=== PATIENT | female | born 1970 | race Caucasian/White ===

== ENCOUNTER 2016-12-31 07:39 | Emergency (ER) | payer OTHER ==
[~2016-12-31] VITALS: Ht 177.8 cm; Wt 113.7 kg
[~2016-12-31 07:39] MED LIST: ASPI81TA28 PO; BUPR-79 PO; DSY/150 PO; IMD/2 PO; LEVO125T4 PO; METH10TA PO; NTRGSL/4 UT; RIZA10TA19 PO
[2016-12-31 07:42] VITALS: TEMP 36.8; Ht 177.8 cm; Wt 113.7 kg
[2016-12-31] MEDS ORDERED: LEVO300T2 PO (07:59)
[2016-12-31] MEDS ORDERED: PROMETHAZINE HCL INJ 25 MG/ML 1 ML VIAL IM STA (08:27)
[2016-12-31] MEDS ORDERED: KETOROLAC TROMETHAMINE 60 MG/2 ML VIAL IM STA (08:27)
[2016-12-31] MEDS ORDERED: HYDROmorphone INJ 1 MG/ML SYR IM STA (08:27)
[2016-12-31] MEDS ORDERED: DEXAMETHASONE SOD INJ 10 MG/ML VIAL IM ONE (08:30)
[2016-12-31 08:45] VITALS: O2SAT 95
[2016-12-31] MEDS ORDERED: HYDROmorphone INJ 0.5 MG/0.5 ML SYR IV STA (09:28)
[2016-12-31] MEDS ORDERED: HYDROmorphone INJ 0.5 MG/0.5 ML SYR IM STA (09:32)
[2016-12-31 09:43] LABS: URINE APPEARANCE CLEAR (CLEAR); URINE BILIRUBIN NEG (NEG); URINE COLOR YELLOW; URINE EPITHELIAL CELL AUTO >30 /lpf (0-5); URINE NITRITE NEG (NEG); URINE PH 6.5 (4.5-7.5); UROBILINOGEN NEG (NEG)
[2016-12-31 09:46] LABS: MANUAL MICROSCOPIC REQUIRED? NO; REVIEW REQ? NO
[2016-12-31] MEDS ORDERED: ONDA4TAB10 SL (11:02)
--- NOTE | 2016-12-31 11:02 | EMERGENCY ROOM VISIT NOTE ---
History First contact with patient: 07:55 Chief Complaint: BACK PAIN Stated Complaint: BACK AND LEG PAIN History of Present Illness Patient is a 46-year-old white female who presents to the emergency department accompanied by her for evaluation of worsening low back pain radiating into her bilateral legs 2-3 days. She has a history of fibromyalgia and chronic low back pain. She is on methadone for her chronic pain syndrome. She complains of pain in the midline low back that radiates into her buttocks and hips bilaterally, then down the lateral aspect of her legs. She states that it hurts to sit and stand. She states that this is similar to her usual pain, but has been worse over the last 2-3 days. It has been on this alleviated by taking her usual doses of methadone, and in addition to trying ibuprofen, ice and warm showers. She has chronic numbness in her thighs bilaterally which has not changed. She denies any bowel or bladder incontinence or saddle anesthesias. No dysuria, frequency, urgency or flank pain. She has chronic constipation and states that her bowel movements have been normal for her. She denies any direct trauma or falls, no unusual activity that she can recall, but she does care for her [id number] grandson with special needs/autism and could have injured herself picking him up or restraining him during a tantrum. Her back has been thoroughly evaluated in the past. She has had MRIs, been evaluated by neurosurgery, undergone injections and physical therapy. She denies any lower extremity weakness. She presently rates her pain a 9/10. She states that she has been nauseous, and vomited early this morning due to the pain. She subsequently was unable to take any of her regular medications. Review of Systems Review of systems as per HPI. All other systems reviewed were negative. 10 systems reviewed. Past Medical/Surgical History Medical Problems: (1) Anxiety (2) Chronic pain syndrome (3) Depression (4) Diverticulitis (5) fibromyalgia (6) H/O traumatic brain injury (7) Hypothyroidism (8) IBS (irritable bowel syndrome) (9) Migraines Surgical Problems: (1) Appendectomy (2) Bilateral tubal ligation (3) section (4) Cholecystectomy (5) H/O colonoscopy (6) H/O cystoscopy (7) H/O esophagogastroduodenoscopy (8) Hysterectomy (9) knee surgery (10) S/P lymph node biopsy Electronic medical records are reviewed and summarized as above/below. See Problem List. Family History Cancer FATHER (bladder CA) GRANDMOTHER (cervical CA) Diabetes mellitus MOTHER FH: migraines SISTER SISTER SISTER FH: thyroid disease MOTHER SISTER Gallbladder disease Heart disease Hypertension FATHER MOTHER Kidney disease Kidney stones Lung disease Seizures SISTER Stroke MOTHER Social History Smoking Status: Current Every Day Smoker Alcohol Use: none Marital Status: Housing Status: lives with family Occupation Status: disabled Current/Historical Medications Scheduled Levothyroxine Sodium (Synthroid), 300 MCG PO DAILY Methadone Hcl (Dolophine), 20 MG PO TID Trazodone HCl (Trazodone HCl), 150 MG PO HS Scheduled PRN Nitroglycerin (Nitrostat), 0.4 MG UT UD PRN for Chest Pain Ondasetron Odt (Zofran Odt), 4 MG SL Q6H PRN for Nausea or Vomiting Rizatriptan Benzoate (Maxalt-[employer]), 10 MG PO UD PRN for Migraine Physical Exam Vital Signs Date Time Temp Pulse Resp B/P (MAP) Pulse Ox O2 Delivery O2 Flow Rate FiO2 12/31/16 11:23 71 17 108/86 94 12/31/16 10:56 71 17 108/86 94 Room Air 12/31/16 09:27 68 17 129/78 94 Room Air 12/31/16 08:45 95 Room Air 12/31/16 07:42 36.8 83 18 131/91 92 Room Air Pain Rating (0-10): 9 Physical Exam CONSTITUTIONAL: Patient is obese 46-year-old white female who is awake and alert and laying supine on the gurney in mild distress due to her back pain. There is discomfort with position changes. She is able to sit at the bedside, stand independently and ambulate to the bathroom with minimal difficulty. HEENT: Normocephalic, atraumatic. Pupils equal, round, reactive to light and accommodation. EOMs intact without nystagmus. Sclera are anicteric. Tympanic membranes intact, with normal landmarks. External canals are clear. Oral and nasopharynx are clear. Mucous membranes are moist. CARDIOVASCULAR: Regular rate and rhythm, with normal S1 and S2, no murmur or gallop or rub is heard. No carotid bruits auscultated. No JVD. Peripheral pulses easily palpable. RESPIRATORY: Breath sounds equal and clear to auscultation without wheezes, rales, or rhonchi heard. Full and equal chest expansion without accessory muscle use or retractions. ABDOMEN: Multiple well-healed surgical scars are noted. Bowel sounds are present. Abdomen is soft, nontender and nondistended. INTEGUMENTARY: No lesions or rash, normal skin turgor. LYMPH: No lymphadenopathy. SPINE: Examination of the patient's back does not demonstrate any ecchymosis, abrasions or outward signs of trauma. No erythema, increased warmth or induration. Patient has midline discomfort to palpation over the low lumbar spine, primarily on the right with pain over the right SI joint and sciatic notch. There is increased pain with range of motion including rotation and flexion. EXTREMITIES: Leg lengths are symmetrical. Negative logroll bilaterally. Normal strength including dorsi-flexion and plantar flexion of the great toes and ankles and flexion and extension of the knees and flexion of the hips. Negative bilateral straight leg raise testing. Lower extremity DTRs are equal and symmetrical bilaterally. Distal pulses are easily palpable. Slight diminished sensation light touch over the lateral thighs bilaterally. Remainder of lower extremity sensation is intact. Medical Decision & Procedures Laboratory Results Test 12/31/16 08:45 Urine Color YELLOW Urine Appearance CLEAR (CLEAR) Urine pH 6.5 (4.5-7.5) Urine Specific Falls 1.020 (1.000-1.030) Urine Protein NEG (NEG) Urine Glucose (UA) NEG (NEG) Urine Ketones NEG (NEG) Urine Occult Blood 1+ (NEG) Urine Nitrite NEG (NEG) Urine Bilirubin NEG (NEG) Urine Urobilinogen NEG (NEG) Urine Leukocyte Esterase NEG (NEG) Urine WBC (Auto) 1-5 /hpf (0-5) Urine RBC (Auto) 5-10 /hpf (0-4) Urine Hyaline Casts (Auto) 0 /lpf (0-5) Urine Epithelial Cells (Auto) >30 /lpf (0-5) Urine Bacteria (Auto) NEG (NEG) Medications Administered Medications (Trade) Dose Ordered Sig/Marlin Route Start Time Stop Time Status Last Admin Dose Admin Ketorolac Tromethamine (Toradol Inj) 60 mg NOW STAT IM 12/31/16 08:27 12/31/16 08:29 DC 12/31/16 08:34 60 MG Promethazine HCl (Phenergan Inj) 25 mg NOW STAT IM 12/31/16 08:27 12/31/16 08:29 DC 12/31/16 08:35 25 MG Hydromorphone HCl (Dilaudid Inj) 1 mg NOW STAT IM 12/31/16 08:27 12/31/16 08:29 DC 12/31/16 08:36 1 MG Dexamethasone Sodium Phosphate (Decadron Inj) 10 mg NOW ONCE IM 12/31/16 08:30 12/31/16 08:31 DC 12/31/16 08:35 10 MG Hydromorphone HCl (Dilaudid Inj) 0.5 mg NOW STAT IM 12/31/16 09:32 12/31/16 09:33 DC 12/31/16 09:44 0.5 MG ED Course The patient was seen and assessed as above. Her old records are reviewed. She has a history of fibromyalgia and chronic low back pain which has been thoroughly evaluated in the past. She has prior emergency department visits with nearly identical complaints in the past. She presents the emergency department for evaluation of exacerbation of her chronic underlying pain. She does not have any history of recent trauma to the radiographs. Her exam is not consistent with acute cord compression or cauda equina syndrome. She was medicated with Toradol 60 mg IM, Phenergan 25 mg IM, Dilaudid 1 mg IM and Decadron 10 mg IM. Urine sample was collected and sent for microscopy and was without indicators for infection. The patient was reassessed, she reported slight improvement of her pain and rated a 7/10. She was given an additional dose of Dilaudid 0.5 mg IM. She was given ice chips which she tolerated. On reassessment, she felt improved, and at this point it was felt that she could be discharged home to resume her normal medications. Conservative care measures were discussed. The patient rated her pain a 0/10 at discharge. Her is driving. She was advised to follow-up with her primary care physician for further care and management. Medical Decision See emergency Department course. [place] Drug Monitoring Program Search Results: patient reviewed within database (regular methadone prescriptions from her PCP) Medication Reconcilliation Current Medication List: was personally reviewed by me Blood Pressure Screening Patient's blood pressure: Elevated blood pressure Blood pressure disposition: Elevated BP felt to be situational Impression Primary Impression: Exacerbation of chronic back pain Departure Information Prescriptions Ondasetron Odt (ZOFRAN ODT) 4 Mg Tab 4 MG SL Q6H Y for Nausea or Vomiting, #20 TAB Prov: Tyalor Mayfield PA 12/31/16 Referrals Dajuan Bell D.O. (PCP) Patient Instructions My [facility] Additional Instructions DO NOT drive, drink alcohol, operate machinery, or perform dangerous activities today. You were given medications in the ER that can affect your ability to safely function or operate a vehicle. Zofran(odansetron) tablets 4mg: Take one and allow it to dissolve in your mouth every four to six hours as needed for nausea or vomiting. Rest and avoid heavy lifting until your symptoms resolve and then gradually return to full activity. A good rule of thumb is if it hurts your back to perform a certain activity, then it should be avoided until you are healthy again. A heating pad, warm compresses, or a hot shower may help with tight muscles and can be done several times a day as needed. Continue current medications. Return to the ER immediately for any numbness, tingling, severe pain, loss of control of your bowels or bladder, inability to walk, or as needed. Follow up with your primary care physician within 3-5 days for a recheck of your current condition.
[2016-12-31 11:23] VITALS: BP 108/86; PULSE 71; O2SAT 94
--- NOTE | 2016-12-31 15:33 | EMERGENCY ROOM VISIT NOTE ---
ED Visit Note First contact with patient: 07:49 I have personally seen and evaluated the patient with the PA. I agree with the diagnosis and management decisions and have been personally involved in the case. Please see Gracia Mayfield PA-C's notes for further details of the history , physical and visit.
== END 2016-12-31 11:24 | disposition home or self-care (01) ==
LOC: C.EDB 07:40
DX: M54.5 Low back pain (principal); M79.7 Fibromyalgia; Z79.899 Other long term (current) drug therapy; F41.9 Anxiety disorder, unspecified; F32.9 Major depressive disorder, single episode, unspecified; E03.9 Hypothyroidism, unspecified; K58.9 Irritable bowel syndrome, unspecified; Z98.51 Tubal ligation status; Z90.49 Acquired absence of other specified parts of digestive tract; Z90.710 Acquired absence of both cervix and uterus; Z80.52 Family history of malignant neoplasm of bladder; Z83.3 Family history of diabetes mellitus; Z82.49 Family history of ischemic heart disease and other diseases of the circulatory system; Z84.1 Family history of disorders of kidney and ureter; Z82.0 Family history of epilepsy and other diseases of the nervous system; Z82.3 Family history of stroke; F17.210 Nicotine dependence, cigarettes, uncomplicated; E66.9 Obesity, unspecified; Z68.36 Body mass index [BMI] 36.0-36.9, adult

== ENCOUNTER 2017-01-12 20:00 | Emergency (ER) | payer OTHER ==
[~2017-01-12] VITALS: Ht 177.8 cm; Wt 99.5 kg
[~2017-01-12 20:00] MED LIST changes: -ASPI81TA28 PO; -BUPR-79 PO; -IMD/2 PO; -LEVO125T4 PO; +LEVO300T2 PO; +ONDA4TAB10 SL
[2017-01-12 20:08] VITALS: TEMP 36.8; Ht 177.8 cm; Wt 99.5 kg
[2017-01-12 20:52] VITALS: O2SAT 99
[2017-01-12] MEDS ORDERED: OPTIRAY 320 IV PRN (21:00)
[2017-01-12 21:02] LABS: BASO % 0.2 %; BASO ABS # 0.02 K/uL (0-0.2); COMPLETE YES; EOS % 0.8 %; HEMATOCRIT 44.1 % (37-47); IG% 0.2 %; LYMPH % 25.6 %; LYMPH ABS # 3.33 K/uL (1.2-3.4); MEAN CELL VOLUME 95.2 fL (80-100); MEAN CORPUSCULAR HEMOGLOBIN 30.5 pg (25-34); MEAN PLATELET VOLUME 10.3 fL (7.4-10.4); MONO % 4.4 %; NEUT % 68.8 %; PLATELET COUNT 234 K/uL (130-400); RED BLOOD COUNT 4.63 M/uL (4.2-5.4); WHITE BLOOD COUNT 13.03 K/uL (4.8-10.8)
--- NOTE | 2017-01-12 21:02 | DIAGNOSTIC IMAGING REPORT ---
CHEST ONE VIEW PORTABLE CLINICAL HISTORY: CHEST PAIN dyspnea COMPARISON STUDY: 10/19/2015 FINDINGS: The bones soft tissues and hemidiaphragms are normal. The cardiomediastinal silhouette is normal. The lungs are clear. The pulmonary vasculature is normal. IMPRESSION: Negative chest. The above report was generated using voice recognition software. It may contain grammatical, syntax or spelling errors. Electronically signed by: Torres Buchanan M.D. 01/12/2017 9:01 PM Dictated Date/Time: 01/12/2017 9:01 PM
[2017-01-12 21:33] LABS: ALT/SGPT 33 U/L (12-78); BLOOD UREA NITROGEN 16 mg/dl (7-18); BUN/CREATININE RATIO 16.4 (10-20); CALCIUM 9.6 mg/dl (8.5-10.1); CARBON DIOXIDE 32 mmol/L (21-32); CHLORIDE 103 mmol/L (98-107); GLUCOSE 95 mg/dl (70-99); POTASSIUM 3.9 mmol/L (3.5-5.1); SODIUM 141 mmol/L (136-145)
[2017-01-12 21:39] LABS: ALKALINE PHOSPHATASE 93 U/L (45-117); AST/SGOT 24 U/L (15-37); CKMB/CK RATIO 1.8 (0-3.0)
[2017-01-12 21:44] LABS: PREG INTERNAL NEGATIVE QC NEG CLEAR BACKGROUND; PREG INTERNAL POSITIVE QC POS CONTROL LINE
--- NOTE | 2017-01-12 22:00 | DIAGNOSTIC IMAGING REPORT ---
(CHEST FOR PE) ANGIO WITH CT DOSE: 624.58 mGy.cm HISTORY: Chest pain dyspnea TECHNIQUE: Multiaxial CT images of the chest were performed following the intravenous administration of contrast to evaluate the pulmonary arteries. Maximal intensity projection images were also obtained. A dose lowering technique was utilized adhering to the principles of ALARA. COMPARISON STUDY: 04/08/2015 FINDINGS: There is a normal caliber thoracic aorta with no evidence for dissection. There is no evidence for pulmonary embolus. No pleural effusions. No pneumothorax. The liver and spleen are unremarkable. No mediastinal or hilar lymphadenopathy. The central airways are patent. The lungs demonstrate a very subtle interstitial prominence. Minimal bilateral posterior costophrenic angle atelectatic change. IMPRESSION: No evidence for pulmonary embolus. Mild right and to a lesser extent left basilar atelectatic change. The above report was generated using voice recognition software. It may contain grammatical, syntax or spelling errors. Electronically signed by: Torres Buchanan M.D. 01/12/2017 9:59 PM Dictated Date/Time: 01/12/2017 9:56 PM
[2017-01-12] MEDS ORDERED: ALBUT/IPRATROP 3MG/0.5MG NEB 3 ML VIAL INH STA (23:22)
[2017-01-12] MEDS ORDERED: KETOROLAC TROMETHAMINE 30 MG/ML VIAL IV STA (23:22)
[2017-01-12 23:43] VITALS: BP 141/76; PULSE 87; O2SAT 98
--- NOTE | 2017-01-13 02:03 | EMERGENCY ROOM VISIT NOTE ---
History Report prepared by Foster: Lexi Ngo Under the Supervision of: Dr. Gerry Holland M.D. First contact with patient: 20:21 Chief Complaint: CHEST PAIN Stated Complaint: CHEST PAIN History of Present Illness The patient is a 46 year old female who presents to the Emergency Room with complaints of worsening severe chest pain starting four days ago. The patient states that the pain radiates into her back and collar bone. She describes that pain as "jolting." She currently rates her pain as an 8/10 in severity. She states the pain is worse when she lies down. She notes she took Methadone that she has for her back pain with no relief. The patient complains of being short of breath, fatigue, and swelling in her hands, feet and legs. She notes that she has had a heart attack in the past, but this feels different then that. She denies being on blood thinners. Pt denies LOC, headache, fevers, chills, diaphoresis, visual changes, neck pain , nausea, vomiting, abdominal pain, back pain, melena, hematochezia, urinary symptoms, numbness, weakness, lymphadenopathy, rash, or other complaints. Source of History: patient Onset: four days ago Position: chest Symptom Intensity: 8/10 Quality: other ("jolting") Timing: worsening Modifying Factors (Worsening): other (lying down) Associated Symptoms: + SOB, + fatigue Note: The patient complains of swelling in her hands, feet, and legs. The patient denies being on blood thinners. Review of Systems See HPI for pertinent positives and negatives. A total of ten systems were reviewed and were otherwise negative. Past Medical & Surgical Medical Problems: (1) Anxiety (2) Chronic pain syndrome (3) Coronary artery disease (4) Depression (5) Diverticulitis (6) fibromyalgia (7) H/O traumatic brain injury (8) History of heart attack (9) Hypothyroidism (10) IBS (irritable bowel syndrome) (11) Migraines Surgical Problems: (1) Appendectomy (2) Bilateral tubal ligation (3) section (4) Cholecystectomy (5) H/O colonoscopy (6) H/O cystoscopy (7) H/O esophagogastroduodenoscopy (8) Hysterectomy (9) knee surgery (10) S/P lymph node biopsy Family History Cancer FATHER (bladder CA) GRANDMOTHER (cervical CA) Diabetes mellitus MOTHER FH: migraines SISTER SISTER SISTER FH: thyroid disease MOTHER SISTER Gallbladder disease Heart disease Hypertension FATHER MOTHER Kidney disease Kidney stones Lung disease Seizures SISTER Stroke MOTHER Social History Smoking Status: Current Every Day Smoker Alcohol Use: none Marital Status: Housing Status: lives with family Occupation Status: disabled Current/Historical Medications Scheduled Levothyroxine Sodium (Synthroid), 300 MCG PO DAILY Methadone Hcl (Dolophine), 20 MG PO TID Trazodone HCl (Trazodone HCl), 150 MG PO HS Scheduled PRN Nitroglycerin (Nitrostat), 0.4 MG UT UD PRN for Chest Pain Ondasetron Odt (Zofran Odt), 4 MG SL Q6H PRN for Nausea or Vomiting Rizatriptan Benzoate (Maxalt-Lease Picker), 10 MG PO UD PRN for Migraine Allergies Coded Allergies: Antihistamines, Chlorpheniramine-ty (Verified Allergy, Intermediate, SHORTNESS OF BREATH, 01/12/17) Guaifenesin (Verified Allergy, Intermediate, SHORTNESS OF BREATH, 01/12/17) Metoclopramide (Verified Allergy, Intermediate, anxiety, 01/12/17) Tramadol (Verified Allergy, Intermediate, ANAPHYLAXIS, 01/12/17) Physical Exam Vital Signs Date Time Temp Pulse Resp B/P (MAP) Pulse Ox O2 Delivery O2 Flow Rate FiO2 01/12/17 23:43 87 18 141/76 98 01/12/17 22:29 80 17 143/88 95 Room Air 01/12/17 21:31 165/74 01/12/17 21:30 58 18 93 01/12/17 21:02 65 22 149/78 93 Room Air 01/12/17 21:01 149/78 01/12/17 20:52 99 Room Air 01/12/17 20:37 99 Room Air 01/12/17 20:08 36.8 75 16 135/84 92 Room Air Physical Exam GENERAL: Awake, alert, uncomfortable-appearing, in no distress HENT: Normocephalic, atraumatic. Oropharynx unremarkable. EYES: Normal conjunctiva. Sclera non-icteric. NECK: Supple. No nuchal rigidity. FROM. No JVD. RESPIRATORY: Clear to auscultation. CARDIAC: Regular rate, normal rhythm. Extremities warm and well perfused. Pulses equal. ABDOMEN: Soft, non-distended. No tenderness to palpation. No rebound or guarding. No masses. RECTAL: Deferred. MUSCULOSKELETAL: Chest examination reveals no tenderness. The back is symmetrical on inspection without obvious abnormality. There is no CVA tenderness to palpation. No joint edema. LOWER EXTREMITIES: Calves are equal size bilaterally and non-tender. No edema. No discoloration. NEURO: Normal sensorium. No sensory or motor deficits noted. SKIN: No rash or jaundice noted. Medical Decision & Procedures ER Provider Diagnostic Interpretation: Radiology results as stated below per my review and radiologist interpretation: CHEST ONE VIEW PORTABLE CLINICAL HISTORY: CHEST PAIN dyspnea COMPARISON STUDY: 10/19/2015 FINDINGS: The bones soft tissues and hemidiaphragms are normal. The cardiomediastinal silhouette is normal. The lungs are clear. The pulmonary vasculature is normal. IMPRESSION: Negative chest. The above report was generated using voice recognition software. It may contain grammatical, syntax or spelling errors. Electronically signed by: Torres Buchanan M.D. 01/12/2017 9:01 PM Dictated Date/Time: 01/12/2017 9:01 PM (CHEST FOR PE) ANGIO WITH CT DOSE: 624.58 mGy.cm HISTORY: Chest pain dyspnea TECHNIQUE: Multiaxial CT images of the chest were performed following the intravenous administration of contrast to evaluate the pulmonary arteries. Maximal intensity projection images were also obtained. A dose lowering technique was utilized adhering to the principles of ALARA. COMPARISON STUDY: 04/08/2015 FINDINGS: There is a normal caliber thoracic aorta with no evidence for dissection. There is no evidence for pulmonary embolus. No pleural effusions. No pneumothorax. The liver and spleen are unremarkable. No mediastinal or hilar lymphadenopathy. The central airways are patent. The lungs demonstrate a very subtle interstitial prominence. Minimal bilateral posterior costophrenic angle atelectatic change. IMPRESSION: No evidence for pulmonary embolus. Mild right and to a lesser extent left basilar atelectatic change. The above report was generated using voice recognition software. It may contain grammatical, syntax or spelling errors. Electronically signed by: Torres Buchanan M.D. 01/12/2017 9:59 PM Dictated Date/Time: 01/12/2017 9:56 PM Laboratory Results 01/12/17 20:44 Red Blood Count 4.63, Mean Corpuscular Volume 95.2, Mean Corpuscular Hemoglobin 30.5, Mean Corpuscular Hemoglobin Concent 32.0, Mean Platelet Volume 10.3, Neutrophils (%) (Auto) 68.8, Lymphocytes (%) (Auto) 25.6, Monocytes (%) (Auto) 4.4, Eosinophils (%) (Auto) 0.8, Basophils (%) (Auto) 0.2, Neutrophils # (Auto) 8.97, Lymphocytes # (Auto) 3.33, Monocytes # (Auto) 0.57, Eosinophils # (Auto) 0.11, Basophils # (Auto) 0.02 01/12/17 20:44 Test 01/12/17 20:44 White Blood Count 13.03 K/uL (4.8-10.8) Red Blood Count 4.63 M/uL (4.2-5.4) Hemoglobin 14.1 g/dL (12.0-16.0) Hematocrit 44.1 % (37-47) Mean Corpuscular Volume 95.2 fL (80-100) Mean Corpuscular Hemoglobin 30.5 pg (25-34) Mean Corpuscular Hemoglobin Concent 32.0 g/dl (32-36) Platelet Count 234 K/uL (130-400) Mean Platelet Volume 10.3 fL (7.4-10.4) Neutrophils (%) (Auto) 68.8 % Lymphocytes (%) (Auto) 25.6 % Monocytes (%) (Auto) 4.4 % Eosinophils (%) (Auto) 0.8 % Basophils (%) (Auto) 0.2 % Neutrophils # (Auto) 8.97 K/uL (1.4-6.5) Lymphocytes # (Auto) 3.33 K/uL (1.2-3.4) Monocytes # (Auto) 0.57 K/uL (0.11-0.59) Eosinophils # (Auto) 0.11 K/uL (0-0.5) Basophils # (Auto) 0.02 K/uL (0-0.2) RDW Standard Deviation 48.0 fL (36.4-46.3) RDW Coefficient of Variation 13.7 % (11.5-14.5) Immature Granulocyte % (Auto) 0.2 % Immature Granulocyte # (Auto) 0.03 K/uL (0.00-0.02) Anion Gap 6.0 mmol/L (3-11) Est Creatinine Clear Calc Drug Dose 90.7 ml/min Estimated GFR () 78.8 Estimated GFR (Non- 68.0 BUN/Creatinine Ratio 16.4 (10-20) Calcium Level 9.6 mg/dl (8.5-10.1) Total Bilirubin 0.2 mg/dl (0.2-1) Direct Bilirubin < 0.1 mg/dl (0-0.2) Aspartate Amino Transf (AST/SGOT) 24 U/L (15-37) Alanine Aminotransferase (ALT/SGPT) 33 U/L (12-78) Alkaline Phosphatase 93 U/L (45-117) Total Creatine Kinase 151 U/L (26-192) Creatine Kinase MB 2.7 ng/ml (0.5-3.6) Creatine Kinase MB Ratio 1.8 (0-3.0) Troponin I < 0.015 ng/ml (0-0.045) Total Protein 7.7 gm/dl (6.4-8.2) Albumin 3.5 gm/dl (3.4-5.0) Lipase 104 U/L (73-393) Human Chorionic Gonadotropin, Qual NEG (NEG) Laboratory results reviewed by me Medications Administered Medications (Trade) Dose Ordered Sig/Marlin Route Start Time Stop Time Status Last Admin Dose Admin Ketorolac Tromethamine (Toradol Inj) 30 mg NOW STAT IV 01/12/17 23:22 01/12/17 23:24 DC 01/12/17 23:31 30 MG Albuterol/ Ipratropium (Duoneb) 3 ml NOW STAT INH 01/12/17 23:22 01/12/17 23:24 DC 01/12/17 23:30 3 ML ECG Indication: chest pain Rate (beats per minute): 60 Rhythm: normal sinus Findings: no acute ischemic change, no ectopy ED Course 2039: The patient was evaluated in room A10. A complete history and physical exam was performed. 2319: I reevaluated the patient. She is going to get a Duoneb and some Toradol. She then will be on her way home. Discussed results and discharge instructions: She verbalized understanding and agreement. The patient is ready for discharge. 2321: Ordered Duoneb 3ml INH, Toradol Inj 30 mg IV. Medical Decision Triage Nursing notes reviewed. The patient's presentation and history were concerning for chest pain. Etiologies such as cardiac ischemia, aortic dissection, pulmonary embolism, pneumonia, pneumothorax, musculoskeletal, infections, gastrointestinal, as well as others were entertained. The patient was complaining of chest pain syndrome present for many days. She had an unremarkable ECG. Blood work was obtained. She had a slight leukocytosis although record review indicates that she has had a leukocytosis on the chart of her visits. Chem panel was unremarkable. LFTs and lipase were negative. Cardiac markers were negative and was negative. The patient underwent CT imaging of her chest and this did not reveal any evidence of pulmonary embolism, pneumonia, pneumothorax, or other emergent pathology. The patient was given a DuoNeb and Toradol. She noted no real difference in her breathing with the DuoNeb. She is a smoker. Her pain mostly is right sided. The patient does note lifting her 2-year-old grandson quite a bit. This may be musculoskeletal or pleurisy. I discussed conservative management with the patient. She has methadone on a daily basis. She will use Tylenol, ibuprofen, and warm compresses. She will follow-up in the office. If she worsens in any way she will be back. Patient and significant other felt comfortable with this plan. I gave my usual and customary discussion regarding this issue. By the evaluation outlined above other emergent etiologies such as those listed in the differential, as well as others, were deemed relatively unlikely. The patient was educated about the findings as listed above. All questions were answered and the patient was pleased with the treatment. Return instructions were outlined and the patient was discharged in stable condition. The patient was referred to PCP for follow-up for a recheck of the current condition. Medication Reconcilliation Current Medication List: was personally reviewed by me Blood Pressure Screening Patient's blood pressure: Elevated blood pressure Blood pressure disposition: Referred to PCP Impression Primary Impression: Right-sided chest pain Scribe Attestation The scribe's documentation has been prepared under my direction and personally reviewed by me in its entirety. I confirm that the note above accurately reflects all work, treatment, procedures, and medical decision making performed by me. Departure Information Dispostion Home / Self-Care Referrals Dajuan Bell D.O. (PCP) Forms HOME CARE DOCUMENTATION FORM, IMPORTANT VISIT INFORMATION Patient Instructions My [facility] [place] Additional Instructions CHEST PAIN INSTRUCTIONS: Stop smoking. Ibuprofen(Motrin, Advil) may be used for fever or pain. Use 600mg every six hours as needed. Take with food. Avoid using more than 2400mg in a 24 hour period. Do not use 2400mg per day for more than three consecutive days without physician direction. Prolonged inappropriate use can lead to stomach upset or ulcers. (AND/OR) Acetaminophen(Tylenol) may be used for fever or pain. Use 1000mg every six hours as needed. Avoid using more than 4000mg in a 24 hour period. Rest and drink plenty of fluids as tolerated. Continue current medications. Avoid strenuous activities and anything that worsens your pain. Resume normal activities once your symptoms resolve. Return to the ER immediately for worsening or persistent chest pain, abdominal pain, vomiting, fevers, chest pains, difficulty breathing, worsening of your condition, or as needed. Follow up with your primary physician in 2-3 days for a recheck of your current condition.
== END 2017-01-12 23:44 | disposition home or self-care (01) ==
LOC: C.EDB 20:01 → C.EDA 23:44
DX: R07.9 Chest pain, unspecified (principal); F41.9 Anxiety disorder, unspecified; G89.4 Chronic pain syndrome; I25.10 Atherosclerotic heart disease of native coronary artery without angina pectoris; F32.9 Major depressive disorder, single episode, unspecified; K57.92 Diverticulitis of intestine, part unspecified, without perforation or abscess without bleeding; I25.2 Old myocardial infarction; E03.9 Hypothyroidism, unspecified; K58.9 Irritable bowel syndrome, unspecified; G43.909 Migraine, unspecified, not intractable, without status migrainosus; Z80.9 Family history of malignant neoplasm, unspecified; Z83.3 Family history of diabetes mellitus; Z82.49 Family history of ischemic heart disease and other diseases of the circulatory system; F17.210 Nicotine dependence, cigarettes, uncomplicated; Z79.899 Other long term (current) drug therapy

== ENCOUNTER 2017-05-13 15:24 | Emergency (ER) | payer OTHER ==
[~2017-05-13] VITALS: Ht 177.8 cm; Wt 117.6 kg
[2017-05-13 15:28] VITALS: TEMP 36.9; Ht 177.8 cm; Wt 117.6 kg
--- NOTE | 2017-05-13 16:13 | EMERGENCY ROOM VISIT NOTE ---
ED Visit Note First contact with patient: 15:54 Resident Physician Supervision Note: I interviewed and examined the patient. Discussed with Dr. Gordon and agree with findings and plan as documented in the note. Documented By: Willard Aponte Problem List Medical Problems: (1) Anxiety Status: Chronic (2) Chronic pain syndrome Status: Chronic (3) Depression Status: Chronic (4) Diverticulitis Status: Resolved (5) fibromyalgia Status: Chronic (6) H/O traumatic brain injury Status: Chronic (7) Hypothyroidism Status: Chronic (8) IBS (irritable bowel syndrome) Status: Chronic (9) Migraines Status: Chronic Surgical Problems: (1) Appendectomy Status: Chronic (2) Bilateral tubal ligation Status: Chronic (3) section Status: Chronic (4) Cholecystectomy Status: Chronic (5) H/O colonoscopy Permanent Comment: 2006 path normal Status: Chronic (6) H/O cystoscopy Status: Chronic (7) H/O esophagogastroduodenoscopy Permanent Comment: 2006 path normal Status: Chronic (8) Hysterectomy Status: Chronic (9) knee surgery Status: Chronic (10) S/P lymph node biopsy Permanent Comment: deep cervical inflammatory node 2007 Status: Chronic Current/Historical Medications Scheduled Levothyroxine Sodium (Synthroid), 300 MCG PO DAILY Methadone Hcl (Dolophine), 20 MG PO TID Trazodone HCl (Trazodone HCl), 150 MG PO HS Scheduled PRN Nitroglycerin (Nitrostat), 0.4 MG UT UD PRN for Chest Pain Ondasetron Odt (Zofran Odt), 4 MG SL Q6H PRN for Nausea or Vomiting Rizatriptan Benzoate (Maxalt-Rn First Assistant), 10 MG PO UD PRN for Migraine Allergies Coded Allergies: Antihistamines, Chlorpheniramine-ty (Verified Allergy, Intermediate, SHORTNESS OF BREATH, 01/12/17) Guaifenesin (Verified Allergy, Intermediate, SHORTNESS OF BREATH, 01/12/17) Metoclopramide (Verified Allergy, Intermediate, anxiety, 01/12/17) Tramadol (Verified Allergy, Intermediate, ANAPHYLAXIS, 01/12/17) Vital Signs Date Time Temp Pulse Resp B/P (MAP) Pulse Ox O2 Delivery O2 Flow Rate FiO2 05/13/17 15:28 36.9 72 20 120/77 96 Room Air Departure Information Referrals Dajuan Bell D.O. (PCP) Patient Instructions My [facility]
--- NOTE | 2017-05-13 16:25 | EMERGENCY ROOM VISIT NOTE ---
History First contact with patient: 15:54 Chief Complaint: CHEST PAIN Stated Complaint: CHEST PAIN, SWELLING, SOB Nursing Triage Summary: referred to ER by pcp for abnormal ekg chest pain/ sob last few days "feels like filling with fluid" took lasix History of Present Illness The patient is a 46 year old female who presents to the Emergency Room with complaints of shortness of breath on exertion and increasing edema. The patient was sent in by her [facility] PCP (Dr Landis) today due to concern for cardiac chest pain and an abnormal EKG in office. The E[facility] was described as abnormal ST [facility] She reports having worsening shortness of breath on exertion (walking up just 4 steps) progressively getting worse over the past 2 weeks. She is also having chest pain at rest and on exertion but reports this is related to increased stress and is more of tightness that lasts for seconds rather than a pain. Her chest pain is not exertional or positional. She notes increasing bilateral swelling in her arms and legs over the past 2 days. Her weight has increased 4lb in the past 2 weeks. She reports little sleep in the past 2 weeks as she is the primary caregiver for her grandchildren and her daughter has just given and she is having to help out with her. She has a significant history of DC in the past and is a current smoker. She has reportedly refused a cardiac cath in the past and does not follow with cardiology as recommended. She does not have reported diabetes. She denies any fever, chills, wheezing, nasal congestion or cough. She did have a viral URI over weekend (2 weeks prior) but reports this has been getting better. Review of Systems All other systems reviewed and otherwise negative other than HPI. Past Medical/Surgical History Medical Problems: (1) Anxiety (2) Chronic pain syndrome (3) Coronary artery disease (4) Depression (5) Diverticulitis (6) fibromyalgia (7) H/O traumatic brain injury (8) History of heart attack (9) Hypothyroidism (10) IBS (irritable bowel syndrome) (11) Migraines Surgical Problems: (1) Appendectomy (2) Bilateral tubal ligation (3) section (4) Cholecystectomy (5) H/O colonoscopy (6) H/O cystoscopy (7) H/O esophagogastroduodenoscopy (8) Hysterectomy (9) knee surgery (10) S/P lymph node biopsy Family History Cancer FATHER (bladder CA) GRANDMOTHER (cervical CA) Diabetes mellitus MOTHER FH: migraines SISTER SISTER SISTER FH: thyroid disease MOTHER SISTER Gallbladder disease Heart disease Hypertension FATHER MOTHER Kidney disease Kidney stones Lung disease Seizures SISTER Stroke MOTHER Social History Smoking Status: Current Every Day Smoker Alcohol Use: none Marital Status: Housing Status: lives with family Occupation Status: disabled Current/Historical Medications Scheduled Levothyroxine Sodium (Synthroid), 300 MCG PO DAILY Methadone Hcl (Dolophine), 20 MG PO TID Trazodone HCl (Trazodone HCl), 150 MG PO HS Scheduled PRN Furosemide (Lasix), 40 MG PO DIRECTED PRN for FLUID RETENTION Nitroglycerin (Nitrostat), 0.4 MG UT UD PRN for Chest Pain Ondasetron Odt (Zofran Odt), 4 MG SL Q6H PRN for Nausea or Vomiting Rizatriptan Benzoate (Maxalt-Dental Instructor), 10 MG PO UD PRN for Migraine Physical Exam Vital Signs Date Time Temp Pulse Resp B/P (MAP) Pulse Ox O2 Delivery O2 Flow Rate FiO2 05/13/17 20:39 62 20 138/71 99 05/13/17 18:01 63 20 150/69 97 Room Air 05/13/17 17:12 54 05/13/17 17:05 61 20 136/82 96 Room Air 05/13/17 15:28 36.9 72 20 120/77 96 Room Air Physical Exam General Appearance: WD/WN, no apparent distress, + obese Head: normocephalic, atraumatic Eyes: normal inspection (pupils equal), EOMI ENT: normal ENT inspection, pharynx normal Neck: supple, no JVD (difficult to assess due to neck size), trachea midline Respiratory/Chest: chest non-tender, lungs clear, normal breath sounds (on reassessment she did have some wheezing so was given duoneb without any change in her symptoms), no respiratory distress, no accessory muscle use Cardiovascular: regular rate, rhythm, no murmur, normal peripheral pulses Abdomen / GI: normal bowel sounds, non tender, soft Back: no CVA tenderness Extremities: no calf tenderness, normal capillary refill, + pedal edema (2+ edema to knees equal b/l) Neurologic/Psych: kiln firer II-XII nml as tested (no facial droop), no motor/ sensory deficits (grossly), alert Lymphatic: no adenopathy Medical Decision & Procedures ER Provider Diagnostic Interpretation: CHEST ONE VIEW PORTABLE CLINICAL HISTORY: Shortness of breath. COMPARISON STUDY: Chest radiograph and chest CT January 12, 2017. FINDINGS: Lung volumes are normal. Mild elevation/eventration of the right hemidiaphragm is unchanged. There is no pneumothorax or pleural effusion. There is no evidence of pulmonary edema. Borderline cardiomegaly is noted. No consolidation is identified to suggest pneumonia. IMPRESSION: No acute cardiopulmonary findings. Electronically signed by: Yonas Carson M.D. 05/13/2017 4:56 PM Dictated Date/Time: 05/13/2017 4:55 PM Laboratory Results 05/13/17 16:26 Red Blood Count 4.21, Mean Corpuscular Volume 95.2, Mean Corpuscular Hemoglobin 31.4, Mean Corpuscular Hemoglobin Concent 32.9, Mean Platelet Volume 10.7, Neutrophils (%) (Auto) 58.9, Lymphocytes (%) (Auto) 33.4, Monocytes (%) (Auto) 5.2, Eosinophils (%) (Auto) 2.3, Basophils (%) (Auto) 0.1, Neutrophils # (Auto) 5.12, Lymphocytes # (Auto) 2.91, Monocytes # (Auto) 0.45, Eosinophils # (Auto) 0.20, Basophils # (Auto) 0.01 05/13/17 16:26 Test 05/13/17 16:22 05/13/17 16:26 05/13/17 17:05 Creatine Kinase MB Ratio (0-3.0) White Blood Count 8.70 K/uL (4.8-10.8) Red Blood Count 4.21 M/uL (4.2-5.4) Hemoglobin 13.2 g/dL (12.0-16.0) Hematocrit 40.1 % (37-47) Mean Corpuscular Volume 95.2 fL (80-100) Mean Corpuscular Hemoglobin 31.4 pg (25-34) Mean Corpuscular Hemoglobin Concent 32.9 g/dl (32-36) Platelet Count 194 K/uL (130-400) Mean Platelet Volume 10.7 fL (7.4-10.4) Neutrophils (%) (Auto) 58.9 % Lymphocytes (%) (Auto) 33.4 % Monocytes (%) (Auto) 5.2 % Eosinophils (%) (Auto) 2.3 % Basophils (%) (Auto) 0.1 % Neutrophils # (Auto) 5.12 K/uL (1.4-6.5) Lymphocytes # (Auto) 2.91 K/uL (1.2-3.4) Monocytes # (Auto) 0.45 K/uL (0.11-0.59) Eosinophils # (Auto) 0.20 K/uL (0-0.5) Basophils # (Auto) 0.01 K/uL (0-0.2) RDW Standard Deviation 45.4 fL (36.4-46.3) RDW Coefficient of Variation 13.1 % (11.5-14.5) Immature Granulocyte % (Auto) 0.1 % Immature Granulocyte # (Auto) 0.01 K/uL (0.00-0.02) Prothrombin Time 10.4 SECONDS (9.0-12.0) Prothromb Time International Ratio 1.0 (0.9-1.1) Activated Partial Thromboplast Time 28.3 SECONDS (21.0-31.0) Partial Thromboplastin Ratio 1.1 Anion Gap 3.0 mmol/L (3-11) Est Creatinine Clear Calc Drug Dose 100.9 ml/min Estimated GFR () 80.7 Estimated GFR (Non- 69.7 BUN/Creatinine Ratio 13.1 (10-20) Calcium Level 9.5 mg/dl (8.5-10.1) Magnesium Level 2.3 mg/dl (1.8-2.4) Creatine Kinase MB < 0.5 ng/ml (0.5-3.6) Troponin I < 0.015 ng/ml (0-0.045) Pro-B-Type Natriuretic Peptide 232 pg/ml (0-450) Thyroid Stimulating Hormone (TSH) 12.400 uIu/ml (0.300-4.500) Free Thyroxine 1.18 ng/dl (0.80-1.60) Urine Color DK YELLOW Urine Appearance CLEAR (CLEAR) Urine pH 5.5 (4.5-7.5) Urine Specific Devon 1.025 (1.000-1.030) Urine Protein NEG (NEG) Urine Glucose (UA) NEG (NEG) Urine Ketones TRACE (NEG) Urine Occult Blood TRACE (NEG) Urine Nitrite NEG (NEG) Urine Bilirubin NEG (NEG) Urine Urobilinogen NEG (NEG) Urine Leukocyte Esterase TRACE (NEG) Urine WBC (Auto) 5-10 /hpf (0-5) Urine RBC (Auto) 5-10 /hpf (0-4) Urine Hyaline Casts (Auto) 5-10 /lpf (0-5) Urine Epithelial Cells (Auto) >30 /lpf (0-5) Urine Bacteria (Auto) 2+ (NEG) Urine Test NEG (NEG) Date/Time Source Procedure Growth Status 05/13/17 17:05 Urine , Clean Catch Urine Culture - Final MORE THAN THREE TYPES OF ORGANISMS W[place]... Complete Medications Administered Medications (Trade) Dose Ordered Sig/Marlin Route Start Time Stop Time Status Last Admin Dose Admin Albuterol/ Ipratropium (Duoneb) 3 ml ONE STAT INH 05/13/17 17:04 05/13/17 17:06 DC 05/13/17 17:11 3 ML Furosemide (Lasix Inj) 40 mg STK-MED ONCE .ROUTE 05/13/17 17:15 05/13/17 17:16 DC 05/13/17 17:17 40 MG ECG Indication: chest pain, SOB/dyspnea Rate (beats per minute): 63 Change: no significant change (12 January 2017) Change: Normal sinus rhythm Low voltage QRS Borderline ECG When compared with ECG of 12-JAN-2017 20:14, No significant change was found Confirmed by AMANUEL PRESLEY ([id number]) on 05/14/2017 12:04:44 PM ED Course Complete history and physical was performed by myself Patient was discussed with Dr Aponte who separately performed history and examination Patient was re-evaluated and found to have some wheezing on her chest exam - prescribed duonebs Patient was re-evaluated with no change in her symptoms from duoneb. Discussed not having a good cause for her large worsening of shortness of breath on exertion therefore recommended to stay as inpatient for further workup given high risk factors. Discussed with Dr Haile regarding evaluation for chest pain rule out given high risk factors, KELLIE score 2, agreed to evalauate the patient in the ER Patient was signed out to Dr Aponte awaiting evaluation by [facility] Medical Decision Prior records/ancillary studies reviewed. Triage Nursing notes reviewed. Additional history obtained from the patient and her The patient's history was concerning for chest tightness and shortness of breath. Differential diagnosis: Etiologies such as cardiac ischemia, aortic dissection, pulmonary embolism, pneumonia, pneumothorax, musculoskeletal, infections, pericarditis, myocarditis , esophageal rupture, gastrointestinal, as well as others were entertained. Physical examination: As above. ER treatment provided: Duoneb Lasix 20mg IV On reassessment the patient felt the same. Diagnostic interpretation by me: The electrocardiogram was negative for pathologic change. The labs revealed normal troponin and BNP Imaging studies: Chest x-ray clear as above Consultation: Given high risk patient with poor compliance and unexplained shortness of breath on exertion she was recommended to be evaluated for admission by the hospitalist team. A consultation was placed with the [facility]. The case was discussed and diagnostics were reviewed. The patient will be evaluated in the ER for further treatment. Medication Reconcilliation Current Medication List: was personally reviewed by me Blood Pressure Screening Patient's blood pressure: Elevated blood pressure Blood pressure disposition: Elevated BP felt to be situational, Referred to PCP Consults Time Called: 18:05 Consulting Physician: Dr Haile ([facility] Hospitalist) Impression Primary Impression: Chest pain Departure Information Dispostion Being Evaluated By Hospitalist Condition GOOD Referrals Dajuan Bell, D.OBabatunde (PCP) Patient Instructions My [facility] Resident Tracking Resident Involvement: Resident Care Provided Care Provided: Adult ED
[2017-05-13 16:36] LABS: BASO % 0.1 %; BASO ABS # 0.01 K/uL (0-0.2); COMPLETE YES; EOS % 2.3 %; HEMATOCRIT 40.1 % (37-47); IG% 0.1 %; LYMPH % 33.4 %; LYMPH ABS # 2.91 K/uL (1.2-3.4); MEAN CELL VOLUME 95.2 fL (80-100); MEAN CORPUSCULAR HEMOGLOBIN 31.4 pg (25-34); MEAN CORPUSCULAR HGB CONC 32.9 g/dl (32-36); MEAN PLATELET VOLUME 10.7 fL (7.4-10.4); MONO % 5.2 %; NEUT % 58.9 %; PLATELET COUNT 194 K/uL (130-400); RED BLOOD COUNT 4.21 M/uL (4.2-5.4)
[2017-05-13] MEDS ORDERED: ONDA4TAB10 SL (16:40)
[2017-05-13] MEDS ORDERED: FRS/40 PO (16:41)
[2017-05-13 16:49] LABS: PARTIAL THROMBOPLASTIN RATIO 1.1; PROTHROMBIN TIME (PATIENT) 10.4 SECONDS (9.0-12.0)
--- NOTE | 2017-05-13 16:57 | DIAGNOSTIC IMAGING REPORT ---
CHEST ONE VIEW PORTABLE CLINICAL HISTORY: Shortness of breath. COMPARISON STUDY: Chest radiograph and chest CT January 12, 2017. FINDINGS: Lung volumes are normal. Mild elevation/eventration of the right hemidiaphragm is unchanged. There is no pneumothorax or pleural effusion. There is no evidence of pulmonary edema. Borderline cardiomegaly is noted. No consolidation is identified to suggest pneumonia. IMPRESSION: No acute cardiopulmonary findings. Electronically signed by: Yonas Carson M.D. 05/13/2017 4:56 PM Dictated Date/Time: 05/13/2017 4:55 PM
[2017-05-13 16:58] LABS: BLOOD UREA NITROGEN 13 mg/dl (7-18); BUN/CREATININE RATIO 13.1 (10-20); CALCIUM 9.5 mg/dl (8.5-10.1); CARBON DIOXIDE 32 mmol/L (21-32); CHLORIDE 104 mmol/L (98-107); CREATININE 0.98 mg/dl (0.60-1.20); GLUCOSE 85 mg/dl (70-99); MAGNESIUM 2.3 mg/dl (1.8-2.4); POTASSIUM 3.9 mmol/L (3.5-5.1); SODIUM 139 mmol/L (136-145)
[2017-05-13] MEDS ORDERED: FUROSEMIDE INJ 20 MG in SYRINGE 0 ML IV STA (17:04)
[2017-05-13] MEDS ORDERED: ALBUT/IPRATROP 3MG/0.5MG NEB 3 ML VIAL INH STA (17:04)
[2017-05-13] MEDS ORDERED: FUROSEMIDE 40 MG/4 ML VIAL ONE (17:15)
[2017-05-13 17:17] LABS: URINE APPEARANCE CLEAR (CLEAR); URINE BILIRUBIN NEG (NEG); URINE COLOR DK YELLOW; URINE EPITHELIAL CELL AUTO >30 /lpf (0-5); URINE NITRITE NEG (NEG); URINE PH 5.5 (4.5-7.5); URINE SPECIFIC GRAVITY 1.025 (1.000-1.030); UROBILINOGEN NEG (NEG); ZZUR CULT IF INDIC CLEAN CATCH YES
[2017-05-13 17:28] LABS: MANUAL MICROSCOPIC REQUIRED? NO; REVIEW REQ? NO
[2017-05-13 20:39] VITALS: BP 138/71; PULSE 62; O2SAT 99
== END 2017-05-13 20:41 | disposition left against medical advice (07) ==
LOC: C.EDB 15:25
DX: R07.89 Other chest pain (principal); R60.0 Localized edema; R94.31 Abnormal electrocardiogram [ECG] [EKG]; I25.2 Old myocardial infarction; F17.200 Nicotine dependence, unspecified, uncomplicated; E03.9 Hypothyroidism, unspecified; R03.0 Elevated blood-pressure reading, without diagnosis of hypertension; Z80.52 Family history of malignant neoplasm of bladder; Z80.49 Family history of malignant neoplasm of other genital organs; Z83.3 Family history of diabetes mellitus; Z83.49 Family history of other endocrine, nutritional and metabolic diseases; Z83.79 Family history of other diseases of the digestive system; Z82.49 Family history of ischemic heart disease and other diseases of the circulatory system; Z84.1 Family history of disorders of kidney and ureter; Z82.3 Family history of stroke; Z82.0 Family history of epilepsy and other diseases of the nervous system

== ENCOUNTER 2017-07-12 05:41 | Emergency (ER) | payer OTHER ==
[~2017-07-12] VITALS: Ht 177.8 cm; Wt 119.3 kg
[~2017-07-12 05:41] MED LIST changes: +FRS/40 PO
[2017-07-12 05:43] VITALS: TEMP 36.9; Ht 177.8 cm; Wt 119.3 kg
--- NOTE | 2017-07-12 06:04 | EMERGENCY ROOM VISIT NOTE ---
History Report prepared by Foster: Sepideh Hunter Under the Supervision of: Dr. Ruchi Portillo D.O. First contact with patient: 05:52 Chief Complaint: BACK PAIN Stated Complaint: BACK,RIBS-SOMETHING EXPLODED IN STOMACH History of Present Illness The patient is a 46 year old female who presents to the Emergency Room with complaints of persistent low back pain that started last night. The patient rates her pain a 10/10 in severity. She states she fell and hit her back on a table 1 week ago. She notes she has been sore ever since the fall but the pain she is feeling now is much worse. She states when she was having a hard time getting up, she felt something "pop" under her right rib cage. The patient notes she takes pain medications for her back which are methadone and Vicodin. She states she is slowly getting off of methadone and going to switch to Vicodin. She notes she is feeling nauseous in the ED since the pain worsened. The patient denies any fever, chills, or urine symptoms. Patient denies any trouble breathing. States the pain is worse with any movement. Patient denies noticing any blood in her urine. Patient is a history of chronic low back pain. Source of History: patient Onset: last night Position: back (lower) Symptom Intensity: 10/10 Timing: other (persistent) Associated Symptoms: No fevers, No chills, No urinary symptoms Review of Systems See HPI for pertinent positives & negatives. A total of 10 systems reviewed and were otherwise negative. Past Medical & Surgical Medical Problems: (1) Anxiety (2) Chronic pain syndrome (3) Coronary artery disease (4) Depression (5) Diverticulitis (6) fibromyalgia (7) H/O traumatic brain injury (8) History of heart attack (9) Hypothyroidism (10) IBS (irritable bowel syndrome) (11) Migraines Surgical Problems: (1) Appendectomy (2) Bilateral tubal ligation (3) section (4) Cholecystectomy (5) H/O colonoscopy (6) H/O cystoscopy (7) H/O esophagogastroduodenoscopy (8) Hysterectomy (9) knee surgery (10) S/P lymph node biopsy Family History Cancer FATHER (bladder CA) GRANDMOTHER (cervical CA) Diabetes mellitus MOTHER FH: migraines SISTER SISTER SISTER FH: thyroid disease MOTHER SISTER Gallbladder disease Heart disease Hypertension FATHER MOTHER Kidney disease Kidney stones Lung disease Seizures SISTER Stroke MOTHER Social History Smoking Status: Current Every Day Smoker Alcohol Use: none Marital Status: Housing Status: lives with family Occupation Status: disabled Current/Historical Medications Scheduled Levothyroxine Sodium (Synthroid), 300 MCG PO DAILY Lidocaine (Lidocaine), 1 PATCH TD DAILY Methadone HCl (Methadone HCl), 10 MG PO noon Methadone Hcl (Dolophine), 20 MG PO am/pm Scheduled PRN Furosemide (Lasix), 40 MG PO DIRECTED PRN for FLUID RETENTION Hydrocodon/Acetaminophen 5MG/300MG (Vicodin (5MG/300MG)), 1 TAB PO BID PRN for Pain Nitroglycerin (Nitrostat), 0.4 MG UT UD PRN for Chest Pain Rizatriptan Benzoate (Maxalt-District Adviser), 10 MG PO UD PRN for Migraine Trazodone HCl (Trazodone HCl), 150 MG PO HS PRN for Sleep Allergies Coded Allergies: Antihistamines, Chlorpheniramine-ty (Verified Allergy, Intermediate, SHORTNESS OF BREATH, 07/12/17) Guaifenesin (Verified Allergy, Intermediate, SHORTNESS OF BREATH, 07/12/17) Metoclopramide (Verified Allergy, Intermediate, anxiety, 07/12/17) Tramadol (Verified Allergy, Intermediate, ANAPHYLAXIS, 07/12/17) Physical Exam Vital Signs Date Time Temp Pulse Resp B/P (MAP) Pulse Ox O2 Delivery O2 Flow Rate FiO2 07/12/17 08:48 74 16 135/80 99 07/12/17 07:00 72 18 144/99 97 Room Air 07/12/17 05:43 36.9 78 20 159/98 98 Room Air Physical Exam GENERAL: alert, appears mildly distressed, well nourished, no distress, non- toxic EYE EXAM: normal conjunctiva, PERRL and EOM's grossly intact OROPHARYNX: no exudate, no erythema, lips, buccal mucosa, and tongue normal and mucous membranes are moist NECK: supple, no nuchal rigidity, no adenopathy, non-tender LUNGS: Clear to auscultation. Normal chest wall mechanics. No chest wall crepitus. No wheezes, rhonchi, or rales. HEART: no murmurs, S1 normal and S2 normal ABDOMEN: abdomen soft, non-tender, normo-active bowel sounds, no masses, no rebound or guarding. BACK: Back is symmetrical on inspection. Tender to right flank and right lower ribs laterally. No midline tenderness or step-off. No CVA tenderness. SKIN: no evidence of trauma, no ecchymosis. No rash or sores. UPPER EXTREMITIES: upper extremities are grossly normal. LOWER EXTREMITIES: No pitting edema. Normal range of motion, no evidence of trauma. NEURO: Cranial nerves II through XII grossly intact, normal gait, normal speech , no facial droop, no ataxia, mostly normal strength of bilateral upper and lower extremities, sensation intact Medical Decision & Procedures ER Provider Diagnostic Interpretation: Radiology results have been interpreted by the radiologist and reviewed by me. CT ABD/PELVIS IV CONTRAST ONLY CLINICAL HISTORY: Right-sided abdominal pain status post trauma COMPARISON STUDY: 08/22/2013 TECHNIQUE: Following the IV administration of 93 mL of Optiray-320, CT scan of the abdomen and pelvis was performed from the lung bases to the proximal femurs. Images are reviewed in the axial, sagittal, and coronal planes. IV contrast was administered without complication. A dose lowering technique was utilized adhering to the principles of ALARA. CT DOSE: 1869.24 mGy.cm FINDINGS: Lower chest: The heart is normal in size and configuration, without pericardial effusion. The lung bases and pleural spaces are clear. Liver: The contrast-enhanced liver is normal in size, contour, and attenuation. There is no intrahepatic biliary ductal dilatation. The hepatic veins and portal veins are patent. Gallbladder: Surgically absent Spleen: Normal in size and attenuation. Pancreas: Unremarkable. Adrenal glands: There are small bilateral hypodense adrenal lesions, likely representing adenomas. Kidneys: There is symmetric renal cortical enhancement. The kidneys are normal in size without hydronephrosis. Bowel: There are no transition zones indicate bowel obstruction. There is mild fecal retention. There is no acute diverticulitis. There are no findings to indicate acute appendicitis. Peritoneum: There is no intraperitoneal free air or abdominal ascites. Vasculature: The abdominal aorta is normal in course and caliber. Adenopathy: None. Pelvic viscera: The uterus is surgically absent. Skeletal structures: No destructive osseous lesions are seen. No fractures are visualized IMPRESSION: 1. No acute intra-abdominal or pelvic findings. 2. No evidence of intra-abdominal or pelvic injury Electronically signed by: Clifton Steward M.D. 07/12/2017 6:56 AM Dictated Date/Time: 07/12/2017 6:50 AM CHEST 2 VIEWS ROUTINE CLINICAL HISTORY: 46 years-old Female presenting with right lower rib pain. TECHNIQUE: PA and lateral views of the chest were obtained. COMPARISON: None. FINDINGS: Cardiomediastinal silhouette normal. Lungs and pleural spaces clear. Prominent nipple shadow at the left lung base. Osseous structures normal. Cholecystectomy clips noted. IMPRESSION: 1. No acute cardiopulmonary disease. Electronically signed by: Lenard Saab M.D. 07/12/2017 8:17 AM Dictated Date/Time: 07/12/2017 8:16 AM Laboratory Results Test 07/12/17 06:23 Bedside Hemoglobin 14.3 g/dl (12.0-16.0) Bedside Hematocrit 42 % (37-47) Bedside Sodium 139 mEq/L (135-144) Bedside Potassium 4.0 mEq/L (3.3-5.0) Bedside Chloride 99 mEq/L (101-112) Bedside Total CO2 30 mEq/l (24-31) Anion Gap 14.0 mmol/L (16-25) Bedside Blood Urea Nitrogen 18 mg/dl (7-18) Bedside Creatinine 1.1 mg/dl (0.6-1.3) Bedside Glucose (other) 107 mg/dl (70-99) Bedside Ionized Calcium (Minh) 1.16 mmol/l (1.12-1.32) Laboratory results per my review. Medications Administered Medications (Trade) Dose Ordered Sig/Marlin Route Start Time Stop Time Status Last Admin Dose Admin Lidocaine (Lidoderm Patch 5%) 1 patch NOW STAT TD 07/12/17 07:09 07/12/17 07:10 DC 07/12/17 07:43 1 PATCH Ketorolac Tromethamine (Toradol Inj) 30 mg NOW STAT IV 07/12/17 07:09 07/12/17 07:10 DC 07/12/17 07:43 30 MG Cyclobenzaprine HCl (Flexeril Tab) 10 mg NOW STAT PO 07/12/17 07:58 07/12/17 07:59 DC 07/12/17 08:14 10 MG ECG Indication: back/shoulder pain Rate (beats per minute): 64 Rhythm: normal sinus Findings: no acute ischemic change, no ectopy, other (normal axis, normal intervals, low voltage throughout) Change: EKG: Patient's electrocardiogram per my interpretation. ED Course 0552: The patient was evaluated in room B11B. A complete history and physical exam was performed. 0749: Patient occasional results at bedside. Patient states pain only mildly improved. Medical Decision Differential diagnosis: Etiologies such as fracture, dislocation, intra-abdominal, pneumothorax, intrathoracic , intracranial, neurologic, as well as other traumatic pathologies were entertained. Patient improved here following additional medications. Patient not given any additional prescriptions for controlled substances at home given the patient sees pain management and is a chronic methadone patient. Additional imaging of the patient was unremarkable, labs reassuring. Patient with a muscle fall last week which was exacerbated last night after trying to get up off the couch while holding a child. While the pain right-sided, no evidence for cholecystitis, appendicitis, or kidney stone. Patient with no symptoms to suggest UTI or pyelonephritis. Patient felt improved following medications here. Discussed with patient follow-up with family doctor as a precaution, continued use of her routine medications at home, avoidance of heavy lifting and strenuous activity, symptoms to watch and return for, she verbalized understanding was agreeable with plan. I have a low suspicion for any additional occult traumatic injury, doubt other infectious etiology, doubt vascular etiology, no evidence of renal stone, no symptoms to suggest acute nerve impingement, cauda equina, discitis, epidural abscess or hematoma. Medication Reconcilliation Current Medication List: was personally reviewed by me Blood Pressure Screening Patient's blood pressure: Elevated blood pressure Blood pressure disposition: Elevated BP felt to be situational Impression Primary Impression: Right flank pain Additional Impression: Musculoskeletal strain Scribe Attestation The scribe's documentation has been prepared under my direction and personally reviewed by me in its entirety. I confirm that the note above accurately reflects all work, treatment, procedures, and medical decision making performed by me. Departure Information Dispostion Home / Self-Care Prescriptions Lidocaine (LIDOCAINE) 5 % Pad 1 PATCH TD DAILY, #1 BOX Prov: Ruchi Portillo, 07/12/17 Referrals Dajuan Bell, D.O. (PCP) Patient Instructions My [facility] Additional Instructions Please follow up with your family doctor as a precaution. You may continue regular pain medications as prescribed. You may use ibuprofen and condition, do not take it on an empty stomach and make sure you're drinking plenty of water. You may also apply the pain patches. These are [id number] however the prescription strength is slightly stronger when you may filling his prescription as directed. If you develop any worsening pain, trouble breathing , fevers or chills, noticed blood in her urine, or you have any other new or concerning symptoms, please return the emergency room. Problem Qualifiers
[2017-07-12] MEDS ORDERED: OPTIRAY 320 IV PRN (06:30)
[2017-07-12 06:35] LABS: ISTAT CREATININE 1.1 mg/dl (0.6-1.3); ISTAT IONIZED CALCIUM 1.16 mmol/l (1.12-1.32)
[2017-07-12] MEDS ORDERED: MTH10 PO (06:38)
[2017-07-12] MEDS ORDERED: METH10SO (06:38)
[2017-07-12] MEDS ORDERED: HYDR-3419 PO (06:40)
--- NOTE | 2017-07-12 06:58 | DIAGNOSTIC IMAGING REPORT ---
CT ABD/PELVIS IV CONTRAST ONLY CLINICAL HISTORY: Right-sided abdominal pain status post trauma COMPARISON STUDY: 08/22/2013 TECHNIQUE: Following the IV administration of 93 mL of Optiray-320, CT scan of the abdomen and pelvis was performed from the lung bases to the proximal femurs. Images are reviewed in the axial, sagittal, and coronal planes. IV contrast was administered without complication. A dose lowering technique was utilized adhering to the principles of ALARA. CT DOSE: 1869.24 mGy.cm FINDINGS: Lower chest: The heart is normal in size and configuration, without pericardial effusion. The lung bases and pleural spaces are clear. Liver: The contrast-enhanced liver is normal in size, contour, and attenuation. There is no intrahepatic biliary ductal dilatation. The hepatic veins and portal veins are patent. Gallbladder: Surgically absent Spleen: Normal in size and attenuation. Pancreas: Unremarkable. Adrenal glands: There are small bilateral hypodense adrenal lesions, likely representing adenomas. Kidneys: There is symmetric renal cortical enhancement. The kidneys are normal in size without hydronephrosis. Bowel: There are no transition zones indicate bowel obstruction. There is mild fecal retention. There is no acute diverticulitis. There are no findings to indicate acute appendicitis. Peritoneum: There is no intraperitoneal free air or abdominal ascites. Vasculature: The abdominal aorta is normal in course and caliber. Adenopathy: None. Pelvic viscera: The uterus is surgically absent. Skeletal structures: No destructive osseous lesions are seen. No fractures are visualized IMPRESSION: 1. No acute intra-abdominal or pelvic findings. 2. No evidence of intra-abdominal or pelvic injury Electronically signed by: Clifton Steward M.D. 07/12/2017 6:56 AM Dictated Date/Time: 07/12/2017 6:50 AM
[2017-07-12] MEDS ORDERED: LIDODERM (LIDOCAINE) PATCH 5% TD STA (07:09)
[2017-07-12] MEDS ORDERED: KETOROLAC TROMETHAMINE 30 MG/ML VIAL IV STA (07:09)
[2017-07-12] MEDS ORDERED: CYCLOBENZAPRINE HCL 5 MG TAB PO STA (07:58)
[2017-07-12] MEDS ORDERED: LIDO1PAD2 TD (08:08)
--- NOTE | 2017-07-12 08:18 | DIAGNOSTIC IMAGING REPORT ---
CHEST 2 VIEWS ROUTINE CLINICAL HISTORY: 46 years-old Female presenting with right lower rib pain. TECHNIQUE: PA and lateral views of the chest were obtained. COMPARISON: None. FINDINGS: Cardiomediastinal silhouette normal. Lungs and pleural spaces clear. Prominent nipple shadow at the left lung base. Osseous structures normal. Cholecystectomy clips noted. IMPRESSION: 1. No acute cardiopulmonary disease. Electronically signed by: Lenard Saab M.D. 07/12/2017 8:17 AM Dictated Date/Time: 07/12/2017 8:16 AM
[2017-07-12 08:48] VITALS: BP 135/80; PULSE 74; O2SAT 99
== END 2017-07-12 08:55 | disposition home or self-care (01) ==
LOC: C.EDB 05:42
DX: S39.012A Strain of muscle, fascia and tendon of lower back, initial encounter (principal); S29.011A Strain of muscle and tendon of front wall of thorax, initial encounter; W19.XXXA Unspecified fall, initial encounter; E03.9 Hypothyroidism, unspecified; Z80.52 Family history of malignant neoplasm of bladder; Z83.3 Family history of diabetes mellitus; Z82.49 Family history of ischemic heart disease and other diseases of the circulatory system; F32.9 Major depressive disorder, single episode, unspecified; K58.9 Irritable bowel syndrome, unspecified; M79.7 Fibromyalgia; Z79.899 Other long term (current) drug therapy; F41.9 Anxiety disorder, unspecified; F17.210 Nicotine dependence, cigarettes, uncomplicated; R10.9 Unspecified abdominal pain

== ENCOUNTER 2017-10-27 21:58 | Emergency (ER) | payer OTHER ==
[~2017-10-27] VITALS: Ht 177.8 cm; Wt 119.1 kg
[~2017-10-27 21:58] MED LIST changes: +HYDR-3419 PO; +LIDO1PAD2 TD; +MTH10 PO; -ONDA4TAB10 SL
[2017-10-27 22:02] VITALS: TEMP 36.8; Ht 177.8 cm; Wt 119.1 kg
[2017-10-27] MEDS ORDERED: HYDROmorphone INJ 1 MG/ML SYR IV STA (22:18)
[2017-10-27] MEDS ORDERED: ONDANSETRON INJ 2 MG/ML 2 ML VIAL IV STA (22:18)
[2017-10-27 22:31] VITALS: O2SAT 95
[2017-10-27 22:41] LABS: BASO % 0.1 %; BASO ABS # 0.02 K/uL (0-0.2); EOS % 0.2 %; EOS ABS # 0.03 K/uL (0-0.5); HEMATOCRIT 43.6 % (37-47); HEMOGLOBIN 14.9 g/dL (12.0-16.0); IG# 0.04 K/uL (0.00-0.02); LYMPH % 10.6 %; LYMPH ABS # 1.77 K/uL (1.2-3.4); MEAN CELL VOLUME 91.4 fL (80-100); MEAN CORPUSCULAR HEMOGLOBIN 31.2 pg (25-34); MEAN CORPUSCULAR HGB CONC 34.2 g/dl (32-36); MEAN PLATELET VOLUME 10.1 fL (7.4-10.4); MONO % 4.5 %; MONO ABS # 0.75 K/uL (0.11-0.59); NEUT % 84.4 %; PLATELET COUNT 212 K/uL (130-400); RED CELL DISTRIBUTION WIDTH CV 13.5 % (11.5-14.5); RED CELL DISTRIBUTION WIDTH SD 44.7 fL (36.4-46.3); WHITE BLOOD COUNT 16.71 K/uL (4.8-10.8)
[2017-10-27 23:02] LABS: ALBUMIN 3.6 gm/dl (3.4-5.0); CALCIUM 9.9 mg/dl (8.5-10.1); CREATININE 1.29 mg/dl (0.60-1.20); POTASSIUM 3.4 mmol/L (3.5-5.1); TOTAL PROTEIN 8.2 gm/dl (6.4-8.2)
[2017-10-27] MEDS ORDERED: HYDROmorphone INJ 0.5 MG/0.5 ML SYR IV STA (23:22)
[2017-10-27] MEDS ORDERED: SODIUM CHLORIDE 0.9% 1000ML 1,000 ML IV STA (23:28)
--- NOTE | 2017-10-28 00:42 | EMERGENCY ROOM VISIT NOTE ---
History First contact with patient: 22:05 Chief Complaint: BACK PAIN Stated Complaint: BACK PAIN, LEG PAIN History of Present Illness The patient is a 47 year old female who presents to the Emergency Room via private vehicle with complaints of "back pain, leg pain". The patient states that she has a history of low back pain. She is on chronic pain meds for such. She states that a few days ago she began with low back pain that radiated down into her legs. She notes that her pain meds are helping somewhat but the pain is now worsening and she feels as though she has difficulty ambulating and climbing stairs secondary to the pain. She describes this feeling as though every bone in her back, pelvis and legs are fractured. There is been no trauma or recent injury. She states that when she went to rule out of bed a few days ago she felt a pop in her low back. There is no abdominal pain or urinary symptoms. She notes she has vomited secondary to the pain. She rates the pain as a 9/10. No fevers. Review of Systems A complete 10-point Review of Systems was discussed with the patient, with pertinent positives and negatives listed in the History of Present Illness. All remaining Review of Systems questions can be considered negative unless otherwise specified. Past Medical/Surgical History Medical Problems: (1) Anxiety (2) Chronic pain syndrome (3) Coronary artery disease (4) Depression (5) Diverticulitis (6) fibromyalgia (7) H/O traumatic brain injury (8) History of heart attack (9) Hypothyroidism (10) IBS (irritable bowel syndrome) (11) Migraines Surgical Problems: (1) Appendectomy (2) Bilateral tubal ligation (3) section (4) Cholecystectomy (5) H/O colonoscopy (6) H/O cystoscopy (7) H/O esophagogastroduodenoscopy (8) Hysterectomy (9) knee surgery (10) S/P lymph node biopsy Family History Cancer FATHER (bladder CA) GRANDMOTHER (cervical CA) Diabetes mellitus MOTHER FH: migraines SISTER SISTER SISTER FH: thyroid disease MOTHER SISTER Gallbladder disease Heart disease Hypertension FATHER MOTHER Kidney disease Kidney stones Lung disease Seizures SISTER Stroke MOTHER Social History Smoking Status: Current Every Day Smoker Alcohol Use: none Marital Status: Housing Status: lives with family Occupation Status: disabled Current/Historical Medications Scheduled Cefdinir (Omnicef), 300 MG PO Q12H Levothyroxine Sodium (Synthroid), 300 MCG PO DAILY Lidocaine (Lidocaine), 1 PATCH TD DAILY Methadone HCl (Methadone HCl), 10 MG PO BID UD Methadone Hcl (Dolophine), 20 MG PO QAM Prednisone (Prednisone), 50 MG PO DAILY Scheduled PRN Furosemide (Lasix), 40 MG PO DIRECTED PRN for FLUID RETENTION Hydrocodon/Acetaminophen 5MG/300MG (Vicodin (5MG/300MG)), 1 TAB PO BID PRN for Pain Nitroglycerin (Nitrostat), 0.4 MG UT UD PRN for Chest Pain Rizatriptan Benzoate (Maxalt-Steel Roller), 10 MG PO UD PRN for Migraine Trazodone HCl (Trazodone HCl), 150 MG PO HS PRN for Sleep Physical Exam Vital Signs Date Time Temp Pulse Resp B/P (MAP) Pulse Ox O2 Delivery O2 Flow Rate FiO2 10/28/17 03:39 63 18 144/74 95 Room Air 10/28/17 01:48 77 18 125/82 93 Room Air 10/27/17 23:39 77 18 132/57 98 Room Air 10/27/17 22:31 95 Room Air 10/27/17 22:02 36.8 86 18 128/84 93 Room Air Physical Exam VITAL SIGNS - Vital signs and nursing notes were reviewed. Stable. GENERAL -47-year-old female her appearing her stated age who is in no acute distress. Communicates well with provider and answers questions appropriately. SKIN - Without rashes. No meningeal or petechial rash. HEAD - NC/AT. EYES - Sclera anicteric. EARS - No deformities of external structures noted on gross examination bilaterally. NOSE - Midline and without cyanosis. No epistaxis or purulent drainage noted. MOUTH/OROPHARYNX - Without perioral cyanosis. ABDOMEN - Abdominal contour normal without pulsations or visible masses. BS normoactive all four quadrants. No tenderness, palpable masses, hepatosplenomegaly, or ascites noted. EXTREMITIES - No clubbing or peripheral cyanosis. No pretibial edema present. With flexion at the hip there is reproducible tenderness in the lumbar spine actively. +5/5 strength noted in UE/LE bilaterally. NEUROLOGIC - Cranial nerves II through XII grossly intact. Sensory intact to light touch throughout. PSYCH - A&O, and cooperates fully with examiner. Pt is very pleasant and interacts well with examiner. Medical Decision & Procedures ER Provider Diagnostic Interpretation: Lumbar spine radiographs: No fracture or dislocation. Minimal disc space narrowing at L5-S1. Phleboliths noted in the pelvis. Surgical clips noted in the mid abdomen. Laboratory Results 10/27/17 22:30 Red Blood Count 4.77, Mean Corpuscular Volume 91.4, Mean Corpuscular Hemoglobin 31.2, Mean Corpuscular Hemoglobin Concent 34.2, Mean Platelet Volume 10.1, Neutrophils (%) (Auto) 84.4, Lymphocytes (%) (Auto) 10.6, Monocytes (%) (Auto) 4.5, Eosinophils (%) (Auto) 0.2, Basophils (%) (Auto) 0.1, Neutrophils # (Auto) 14.10, Lymphocytes # (Auto) 1.77, Monocytes # (Auto) 0.75, Eosinophils # (Auto) 0.03, Basophils # (Auto) 0.02 10/27/17 22:30 Test 10/27/17 22:30 10/27/17 23:35 White Blood Count 16.71 K/uL (4.8-10.8) Red Blood Count 4.77 M/uL (4.2-5.4) Hemoglobin 14.9 g/dL (12.0-16.0) Hematocrit 43.6 % (37-47) Mean Corpuscular Volume 91.4 fL (80-100) Mean Corpuscular Hemoglobin 31.2 pg (25-34) Mean Corpuscular Hemoglobin Concent 34.2 g/dl (32-36) Platelet Count 212 K/uL (130-400) Mean Platelet Volume 10.1 fL (7.4-10.4) Neutrophils (%) (Auto) 84.4 % Lymphocytes (%) (Auto) 10.6 % Monocytes (%) (Auto) 4.5 % Eosinophils (%) (Auto) 0.2 % Basophils (%) (Auto) 0.1 % Neutrophils # (Auto) 14.10 K/uL (1.4-6.5) Lymphocytes # (Auto) 1.77 K/uL (1.2-3.4) Monocytes # (Auto) 0.75 K/uL (0.11-0.59) Eosinophils # (Auto) 0.03 K/uL (0-0.5) Basophils # (Auto) 0.02 K/uL (0-0.2) RDW Standard Deviation 44.7 fL (36.4-46.3) RDW Coefficient of Variation 13.5 % (11.5-14.5) Immature Granulocyte % (Auto) 0.2 % Immature Granulocyte # (Auto) 0.04 K/uL (0.00-0.02) Erythrocyte Sedimentation Rate 28 mm/hr (0-21) Anion Gap 3.0 mmol/L (3-11) Est Creatinine Clear Calc Drug Dose 76.3 ml/min Estimated GFR () 57.5 Estimated GFR (Non- 49.6 BUN/Creatinine Ratio 10.8 (10-20) Calcium Level 9.9 mg/dl (8.5-10.1) Total Bilirubin 0.3 mg/dl (0.2-1) Aspartate Amino Transf (AST/SGOT) 28 U/L (15-37) Alanine Aminotransferase (ALT/SGPT) 38 U/L (12-78) Alkaline Phosphatase 127 U/L (45-117) C-Reactive Protein 0.66 mg/dl (0-0.29) Total Protein 8.2 gm/dl (6.4-8.2) Albumin 3.6 gm/dl (3.4-5.0) Globulin 4.6 gm/dl (2.5-4.0) Albumin/Globulin Ratio 0.8 (0.9-2) Urine Color DK YELLOW Urine Appearance CLOUDY (CLEAR) Urine pH 5.0 (4.5-7.5) Urine Specific [place] 1.029 (1.000-1.030) Urine Protein NEG (NEG) Urine Glucose (UA) NEG (NEG) Urine Ketones TRACE (NEG) Urine Occult Blood 2+ (NEG) Urine Nitrite POS (NEG) Urine Bilirubin NEG (NEG) Urine Urobilinogen NEG (NEG) Urine Leukocyte Esterase SMALL (NEG) Urine WBC (Auto) 1-5 /hpf (0-5) Urine RBC (Auto) 0-4 /hpf (0-4) Urine Hyaline Casts (Auto) 0 /lpf (0-5) Urine Epithelial Cells (Auto) 20-30 /lpf (0-5) Urine Bacteria (Auto) NEG (NEG) Urine Crystals See comments (NONE PRSENT) Urine Mucus PRESENT (NONE PRSENT) Urine Opiates Screen POS (NEG) Urine Methadone, Qualitative POS (NEG) Urine Barbiturates NEG (NEG) Urine Phencyclidine (PCP) Level NEG (NEG) Ur Amphetamine/Methamphetamine NEG (NEG) MDMA (Ecstasy) Screen NEG (NEG) Urine Benzodiazepines Screen NEG (NEG) Urine Cocaine Metabolite NEG (NEG) Urine Marijuana (THC) NEG (NEG) Medications Administered Medications (Trade) Dose Ordered Sig/Marlin Route Start Time Stop Time Status Last Admin Dose Admin Hydromorphone HCl (Dilaudid Inj) 1 mg NOW STAT IV 10/27/17 22:18 10/27/17 22:20 DC 10/27/17 22:40 1 MG Ondansetron HCl (Zofran Inj) 4 mg NOW STAT IV 10/27/17 22:18 10/27/17 22:20 DC 10/27/17 22:36 4 MG Hydromorphone HCl (Dilaudid Inj) 1 mg NOW STAT IV 10/27/17 23:22 10/27/17 23:24 DC 10/27/17 23:33 1 MG Sodium Chloride 1,000 ml @ 999 mls/hr Q1H1M STAT IV 10/27/17 23:28 10/28/17 00:28 DC 10/27/17 23:33 999 MLS/HR Ceftriaxone Sodium (Rocephin Inj) 1 gm NOW STAT IV 10/28/17 00:48 10/28/17 00:50 DC 10/28/17 01:46 1 GM Ketorolac Tromethamine (Toradol Inj) 30 mg NOW STAT IV 10/28/17 03:19 10/28/17 03:20 DC 10/28/17 03:39 30 MG Medical Decision Patient was seen and evaluated as above. Review was performed of nursing notes and vital signs. After obtaining a thorough history and physical examination the above work up was performed. She presents today with low back pain. She is nontoxic on exam. Pain is reproducible with certain movements. This is likely chronic in nature given her history and presentation. However, I did elect to obtain IV access and provide intravenous pain medication secondary to her presentation. She was given Dilaudid for pain and Zofran for nausea. CBC does reveal leukocytosis, with a ESR and CRP elevation. Minimal hypokalemia. CRP elevation. X-ray of the L-spine was obtained. No fracture or dislocation per my interpretation. Decision was made to obtain MRI secondary to her presentation, inflammatory marker elevation, leukocytosis. MRI pending. Signed out to Tyson Lauren PA-C pending MRI and possible CT of ABD/PELVIS will be ordered to further evaluate for stone with possible UTI. I attest that I have personally reviewed the patient medication list. I attest that I have reviewed the patient's blood pressure and it was found to be elevated. In the evaluation and treatment of this patient the following differential diagnoses were entertained: fx, dislocation, uti, pyelonephritis, abscess, among others. Impression Primary Impression: Low back pain Additional Impression: Hypokalemia Departure Information Dispostion Home / Self-Care Condition GOOD Prescriptions Prednisone (Prednisone) 50 Mg Tab 50 MG PO DAILY for 4 Days, #4 TAB Prov: Tyson Lauren PA-C 10/28/17 Cefdinir (OMNICEF) 300 Mg Cap 300 MG PO Q12H for 7 Days, #14 CAP Prov: Tyson Lauren PA-C 10/28/17 Referrals Dajuan Bell, D.OBabatunde (PCP) Patient Instructions My [facility] Additional Instructions You have been treated in the Emergency Department for Back Pain. You have received pain medicine in the emergency department which impairs your ability to operate a vehicle. It is illegal for you to drive after receiving these medicines. Please call your family doctor to schedule follow-up regarding your elevated kidney function here today in your minimally low potassium. For pain control, you can use the following [id number]-[id number] medicines (if >12 yo): - Regular strength (325mg/tab) Tylenol (acetaminophen) 2 tabs every 4-6 hours as needed. Do not exceed 12 tablets in a 24 hour period. Avoid taking more than 3 grams (3000 mg) of Tylenol per day. This includes any other sources of acetaminophen you may take on a regular basis. - Regular strength (200 mg/tab) Advil (ibuprofen) 1-2 tabs every 4-6 hours as needed. Do not exceed a dose of 3200 mg per day. If this is an acute injury, ice can be applied to the area of pain for the first 3 days to help decrease pain and inflammation. After the first 3 days, a heating pad can be used over the area for continued soothing relief. You should schedule a follow-up appointment in 2-3 days with your Primary Care Provider for further evaluation and treatment of your back pain. Return to the Emergency Department if your current symptoms worsen despite treatment course outlined above, or if you develop any of the following symptoms : intractable pain despite aforementioned treatment course, loss of control of your bowel or bladder, numbness or tingling in your groin, or development of a fever. Problem Qualifiers
[2017-10-28] MEDS ORDERED: CEFTRIAXONE SOD INJ 1 GM ADDVIAL IV STA (00:48)
[2017-10-28] MEDS ORDERED: KETOROLAC TROMETHAMINE 30 MG/ML VIAL IV STA (03:19)
--- NOTE | 2017-10-28 03:22 | EMERGENCY ROOM VISIT NOTE ---
ED Visit Note First contact with patient: 02:57 Patient care was assumed from Brenden Felix PA-C. Please see Mr Felix's dictation and emergency department course prior to this assumption of care. In short, the patient has back pain that sounds radicular in nature. She does have an elevated white blood cell count as well as elevated inflammatory markers. She has known chronic back pain and takes methadone and Vicodin for this. At the time of shift change MRI results were pending, and results are as follows: Preliminary Findings Only See Final Report For Complete Findings MRI L SPINE : Disc desiccation and bulging at L4-5 with annular tear and possible small superimposed central protrusion. No stenosis. No evidence for infection. No abnormal enhancement. The MRI results do not appear to show a distinct infection which was the primary cause for the study. Review of the patient's labs and evaluation showed concern for possible kidney infection or kidney stone as she has an elevated white blood cell count, urine nitrates, and urine esterase. There is also mucus and calcium oxalate crystals. CT scan of the abdomen and pelvis was performed to evaluate better for stone. The patient was given a dose of IV Toradol for comfort. CT Scan is as follows: Preliminary Findings Only See Final Report For Complete Findings CT ABDOMEN & PELVIS Without Contrast: Wall thickening throughout the descending and rectosigmoid colon consistent with colitis No renal stones or hydronephrosis On reevaluation the patient seems very comfortable and certainly not toxic. I had a lengthy discussion with her and family regarding options of care. I clinically suspect that much of her back pain is chronic in nature, and will provide her a short course of prednisone to assist with her sciatica symptoms. Additionally the patient will be given a short course of Omnicef for a likely UTI. I am unsure of the nature of the colitis on CT scan. The patient does not report a history of ulcerative colitis or Crohn's disease. She will need to follow with her primary care physician for this, and was instructed on conservative diet and management. The patient is to continue her at home pain medication regimen. She was otherwise invited back to the ER with any new, worsening, or concerning symptoms. Problem List Medical Problems: (1) Anxiety Status: Chronic (2) Chronic pain syndrome Status: Chronic (3) Depression Status: Chronic (4) Diverticulitis Status: Resolved (5) fibromyalgia Status: Chronic (6) H/O traumatic brain injury Status: Chronic (7) Hypothyroidism Status: Chronic (8) IBS (irritable bowel syndrome) Status: Chronic (9) Migraines Status: Chronic Surgical Problems: (1) Appendectomy Status: Chronic (2) Bilateral tubal ligation Status: Chronic (3) section Status: Chronic (4) Cholecystectomy Status: Chronic (5) H/O colonoscopy Permanent Comment: 2006 path normal Status: Chronic (6) H/O cystoscopy Status: Chronic (7) H/O esophagogastroduodenoscopy Permanent Comment: 2006 path normal Status: Chronic (8) Hysterectomy Status: Chronic (9) knee surgery Status: Chronic (10) S/P lymph node biopsy Permanent Comment: deep cervical inflammatory node 2007 Status: Chronic Current/Historical Medications Scheduled Cefdinir (Omnicef), 300 MG PO Q12H Levothyroxine Sodium (Synthroid), 300 MCG PO DAILY Lidocaine (Lidocaine), 1 PATCH TD DAILY Methadone HCl (Methadone HCl), 10 MG PO BID UD Methadone Hcl (Dolophine), 20 MG PO QAM Prednisone (Prednisone), 50 MG PO DAILY Scheduled PRN Furosemide (Lasix), 40 MG PO DIRECTED PRN for FLUID RETENTION Hydrocodon/Acetaminophen 5MG/300MG (Vicodin (5MG/300MG)), 1 TAB PO BID PRN for Pain Nitroglycerin (Nitrostat), 0.4 MG UT UD PRN for Chest Pain Rizatriptan Benzoate (Maxalt-Servicer), 10 MG PO UD PRN for Migraine Trazodone HCl (Trazodone HCl), 150 MG PO HS PRN for Sleep Allergies Coded Allergies: Antihistamines, Chlorpheniramine-ty (Verified Allergy, Intermediate, SHORTNESS OF BREATH, 07/12/17) Guaifenesin (Verified Allergy, Intermediate, SHORTNESS OF BREATH, 07/12/17) Metoclopramide (Verified Allergy, Intermediate, anxiety, 07/12/17) Tramadol (Verified Allergy, Intermediate, ANAPHYLAXIS, 07/12/17) Vital Signs Date Time Temp Pulse Resp B/P (MAP) Pulse Ox O2 Delivery O2 Flow Rate FiO2 10/28/17 03:39 63 18 144/74 95 Room Air 10/28/17 01:48 77 18 125/82 93 Room Air 10/27/17 23:39 77 18 132/57 98 Room Air 10/27/17 22:31 95 Room Air 10/27/17 22:02 36.8 86 18 128/84 93 Room Air Laboratory Results 10/27/17 22:30 Red Blood Count 4.77, Mean Corpuscular Volume 91.4, Mean Corpuscular Hemoglobin 31.2, Mean Corpuscular Hemoglobin Concent 34.2, Mean Platelet Volume 10.1, Neutrophils (%) (Auto) 84.4, Lymphocytes (%) (Auto) 10.6, Monocytes (%) (Auto) 4.5, Eosinophils (%) (Auto) 0.2, Basophils (%) (Auto) 0.1, Neutrophils # (Auto) 14.10, Lymphocytes # (Auto) 1.77, Monocytes # (Auto) 0.75, Eosinophils # (Auto) 0.03, Basophils # (Auto) 0.02 10/27/17 22:30 Test 10/27/17 22:30 10/27/17 23:35 White Blood Count 16.71 K/uL (4.8-10.8) Red Blood Count 4.77 M/uL (4.2-5.4) Hemoglobin 14.9 g/dL (12.0-16.0) Hematocrit 43.6 % (37-47) Mean Corpuscular Volume 91.4 fL (80-100) Mean Corpuscular Hemoglobin 31.2 pg (25-34) Mean Corpuscular Hemoglobin Concent 34.2 g/dl (32-36) Platelet Count 212 K/uL (130-400) Mean Platelet Volume 10.1 fL (7.4-10.4) Neutrophils (%) (Auto) 84.4 % Lymphocytes (%) (Auto) 10.6 % Monocytes (%) (Auto) 4.5 % Eosinophils (%) (Auto) 0.2 % Basophils (%) (Auto) 0.1 % Neutrophils # (Auto) 14.10 K/uL (1.4-6.5) Lymphocytes # (Auto) 1.77 K/uL (1.2-3.4) Monocytes # (Auto) 0.75 K/uL (0.11-0.59) Eosinophils # (Auto) 0.03 K/uL (0-0.5) Basophils # (Auto) 0.02 K/uL (0-0.2) RDW Standard Deviation 44.7 fL (36.4-46.3) RDW Coefficient of Variation 13.5 % (11.5-14.5) Immature Granulocyte % (Auto) 0.2 % Immature Granulocyte # (Auto) 0.04 K/uL (0.00-0.02) Erythrocyte Sedimentation Rate 28 mm/hr (0-21) Anion Gap 3.0 mmol/L (3-11) Est Creatinine Clear Calc Drug Dose 76.3 ml/min Estimated GFR () 57.5 Estimated GFR (Non- 49.6 BUN/Creatinine Ratio 10.8 (10-20) Calcium Level 9.9 mg/dl (8.5-10.1) Total Bilirubin 0.3 mg/dl (0.2-1) Aspartate Amino Transf (AST/SGOT) 28 U/L (15-37) Alanine Aminotransferase (ALT/SGPT) 38 U/L (12-78) Alkaline Phosphatase 127 U/L (45-117) C-Reactive Protein 0.66 mg/dl (0-0.29) Total Protein 8.2 gm/dl (6.4-8.2) Albumin 3.6 gm/dl (3.4-5.0) Globulin 4.6 gm/dl (2.5-4.0) Albumin/Globulin Ratio 0.8 (0.9-2) Urine Color DK YELLOW Urine Appearance CLOUDY (CLEAR) Urine pH 5.0 (4.5-7.5) Urine Specific [place] 1.029 (1.000-1.030) Urine Protein NEG (NEG) Urine Glucose (UA) NEG (NEG) Urine Ketones TRACE (NEG) Urine Occult Blood 2+ (NEG) Urine Nitrite POS (NEG) Urine Bilirubin NEG (NEG) Urine Urobilinogen NEG (NEG) Urine Leukocyte Esterase SMALL (NEG) Urine WBC (Auto) 1-5 /hpf (0-5) Urine RBC (Auto) 0-4 /hpf (0-4) Urine Hyaline Casts (Auto) 0 /lpf (0-5) Urine Epithelial Cells (Auto) 20-30 /lpf (0-5) Urine Bacteria (Auto) NEG (NEG) Urine Crystals See comments (NONE PRSENT) Urine Mucus PRESENT (NONE PRSENT) Urine Opiates Screen POS (NEG) Urine Methadone, Qualitative POS (NEG) Urine Barbiturates NEG (NEG) Urine Phencyclidine (PCP) Level NEG (NEG) Ur Amphetamine/Methamphetamine NEG (NEG) MDMA (Ecstasy) Screen NEG (NEG) Urine Benzodiazepines Screen NEG (NEG) Urine Cocaine Metabolite NEG (NEG) Urine Marijuana (THC) NEG (NEG) Medications Administered Medications (Trade) Dose Ordered Sig/Marlin Route Start Time Stop Time Status Last Admin Dose Admin Hydromorphone HCl (Dilaudid Inj) 1 mg NOW STAT IV 10/27/17 22:18 10/27/17 22:20 DC 10/27/17 22:40 1 MG Ondansetron HCl (Zofran Inj) 4 mg NOW STAT IV 10/27/17 22:18 10/27/17 22:20 DC 10/27/17 22:36 4 MG Hydromorphone HCl (Dilaudid Inj) 1 mg NOW STAT IV 10/27/17 23:22 10/27/17 23:24 DC 10/27/17 23:33 1 MG Sodium Chloride 1,000 ml @ 999 mls/hr Q1H1M STAT IV 10/27/17 23:28 10/28/17 00:28 DC 10/27/17 23:33 999 MLS/HR Ceftriaxone Sodium (Rocephin Inj) 1 gm NOW STAT IV 10/28/17 00:48 10/28/17 00:50 DC 10/28/17 01:46 1 GM Ketorolac Tromethamine (Toradol Inj) 30 mg NOW STAT IV 10/28/17 03:19 10/28/17 03:20 DC 10/28/17 03:39 30 MG Departure Information Impression Primary Impression: Low back pain Additional Impression: Hypokalemia Dispostion Home / Self-Care Condition GOOD Prescriptions Prednisone (Prednisone) 50 Mg Tab 50 MG PO DAILY for 4 Days, #4 TAB Prov: Tyson Lauren PA-C 10/28/17 Cefdinir (OMNICEF) 300 Mg Cap 300 MG PO Q12H for 7 Days, #14 CAP Prov: Tyson Lauren PA-C 10/28/17 Referrals Dajuan Bell D.OBabatunde (PCP) Patient Instructions My [facility] Additional Instructions You have been treated in the Emergency Department for Back Pain. You have received pain medicine in the emergency department which impairs your ability to operate a vehicle. It is illegal for you to drive after receiving these medicines. Please call your family doctor to schedule follow-up regarding your elevated kidney function here today in your minimally low potassium. For pain control, you can use the following [id number] medicines (if >12 yo): - Regular strength (325mg/tab) Tylenol (acetaminophen) 2 tabs every 4-6 hours as needed. Do not exceed 12 tablets in a 24 hour period. Avoid taking more than 3 grams (3000 mg) of Tylenol per day. This includes any other sources of acetaminophen you may take on a regular basis. - Regular strength (200 mg/tab) Advil (ibuprofen) 1-2 tabs every 4-6 hours as needed. Do not exceed a dose of 3200 mg per day. If this is an acute injury, ice can be applied to the area of pain for the first 3 days to help decrease pain and inflammation. After the first 3 days, a heating pad can be used over the area for continued soothing relief. You should schedule a follow-up appointment in 2-3 days with your Primary Care Provider for further evaluation and treatment of your back pain. Return to the Emergency Department if your current symptoms worsen despite treatment course outlined above, or if you develop any of the following symptoms : intractable pain despite aforementioned treatment course, loss of control of your bowel or bladder, numbness or tingling in your groin, or development of a fever. Problem Qualifiers
[2017-10-28 03:39] VITALS: BP 144/74; PULSE 63; O2SAT 95
[2017-10-28] MEDS ORDERED: CEFD300C2 PO (04:48)
[2017-10-28] MEDS ORDERED: PRED50TA PO (04:48)
--- NOTE | 2017-10-28 07:28 | DIAGNOSTIC IMAGING REPORT ---
ABDOMEN AND PELVIS CT WITHOUT CONTRAST CT DOSE: 1877.63 mGy.cm HISTORY: Hematuria. Back pain. Possible UTI vs stone TECHNIQUE: Multiaxial CT images of the abdomen and pelvis were performed without the use of intravenous and oral contrast according to the standard department stone protocol. A dose lowering technique was utilized adhering to the principles of ALARA. COMPARISON STUDY: Abdomen and pelvis CT 07/12/2017. FINDINGS: Bibasilar linear densities consistent with subsegmental atelectasis. No pneumoperitoneum. No pneumatosis. No fractures within the visualized osseous structures. Contrast within the bladder due to the recent lumbar spine MRI. The appendix is not identified and reportedly surgically absent. Cholecystectomy. The unenhanced liver, spleen, kidneys, and pancreas are unremarkable. No retroperitoneal lymphadenopathy. Small bilateral adrenal gland lesions within the largest on the left measuring 12 mm. These are consistent with benign adenomas. There is also residual contrast within the renal collecting systems which could obscure a stone. However, no hydronephrosis. No evidence for bowel obstruction. Hysterectomy. Mild bowel wall thickening within the majority of the descending colon with minimal surrounding fat stranding. This is consistent with a nonspecific colitis. IMPRESSION: 1. Mild bowel wall thickening within the majority of the descending colon consistent with a nonspecific colitis. 2. No hydronephrosis. 3. No evidence for bowel obstruction. 4. Postoperative changes as described above. Electronically signed by: Zheng Rivera M.D. 10/28/2017 7:27 AM Dictated Date/Time: 10/28/2017 7:22 AM
--- NOTE | 2017-10-28 07:46 | DIAGNOSTIC IMAGING REPORT ---
LUMBAR SPINE MRI WITH AND WITHOUT CONTRAST HISTORY: Low back pain down legs, leukocytosis, trouble ambulating. TECHNIQUE: Multiplanar multisequence MRI of the lumbar spine was performed both before and after the intravenous administration of contrast. COMPARISON: None. FINDINGS: For the purpose of the report the L5-S1 disc space will be located on axial image 23 of 25. Mild motion artifact. No fracture or subluxation. Mild disc desiccation at L4-L5. Disc spaces are preserved. The conus terminates at the L1 level. Normal marrow signal intensity seen throughout the visualized osseous structures. No abnormal enhancement. Paraspinal soft tissues are unremarkable. No epidural fluid collections. L1-L2: No significant central canal or neural foraminal narrowing. L2-L3: No significant central canal or neural foraminal narrowing. L3-L4: No significant central canal or neural foraminal narrowing. L4-L5: Small right paracentral focal disc protrusion without significant central canal or neural foraminal narrowing. L5-S1: No significant central canal or neural foraminal narrowing. IMPRESSION: 1. Small right paracentral focal disc protrusion at L4-L5 without significant central canal or neural foraminal narrowing. 2. No fracture or subluxation. 3. No abnormal enhancement within the lumbar spine. Electronically signed by: Zheng Rivera M.D. 10/28/2017 7:44 AM Dictated Date/Time: 10/28/2017 7:41 AM
--- NOTE | 2017-10-28 07:53 | DIAGNOSTIC IMAGING REPORT ---
LUMBAR SPINE 5 VIEWS HISTORY: Low back pain radiating down legs COMPARISON: Lumbar spine 03/01/2016. FINDINGS: There is no fracture. No subluxation. Disc spaces are preserved. IMPRESSION: No fracture or subluxation within the lumbar spine. Electronically signed by: Zheng Rivera M.D. 10/28/2017 7:51 AM Dictated Date/Time: 10/28/2017 7:51 AM
== END 2017-10-28 04:55 | disposition home or self-care (01) ==
LOC: C.EDB 22:00 → C.EDA 10-28 04:55
DX: M54.16 Radiculopathy, lumbar region (principal); E87.6 Hypokalemia; D72.829 Elevated white blood cell count, unspecified; R70.0 Elevated erythrocyte sedimentation rate; R79.82 Elevated C-reactive protein (CRP); K52.9 Noninfective gastroenteritis and colitis, unspecified; N39.0 Urinary tract infection, site not specified; G89.29 Other chronic pain; E03.9 Hypothyroidism, unspecified; F17.200 Nicotine dependence, unspecified, uncomplicated; Z79.899 Other long term (current) drug therapy; Z88.6 Allergy status to analgesic agent; Z88.8 Allergy status to other drugs, medicaments and biological substances

== ENCOUNTER 2018-01-06 23:44 | Emergency (ER) | payer OTHER ==
[2018-01-06 23:50] VITALS: TEMP 37.2; Ht 179.1 cm
[2018-01-07] MEDS ORDERED: KETOROLAC TROMETHAMINE 30 MG/ML VIAL IV STA (00:36)
[2018-01-07] MEDS ORDERED: ONDANSETRON INJ 2 MG/ML 2 ML VIAL IV STA (00:39)
[2018-01-07] MEDS ORDERED: ACETAMINOPHEN IV 1,000 MG in EMPTY BAG 0 ML IV ONE (00:45)
[2018-01-07] MEDS ORDERED: DEXAMETHASONE **PF** INJ 10 MG/ML VIAL IV ONE (00:45)
[2018-01-07] MEDS ORDERED: SODIUM CHLORIDE 0.9% 1000ML 1,000 ML IV ONE (00:45)
[2018-01-07] MEDS ORDERED: ACETAMINOPHEN 1000 MG/100 ML IV IV ONE (00:53)
[2018-01-07 01:11] LABS: BASO % 0.2 %; BASO ABS # 0.02 K/uL (0-0.2); EOS % 0.9 %; HEMATOCRIT 44.9 % (37-47); IG# 0.02 K/uL (0.00-0.02); LYMPH % 32.8 %; LYMPH ABS # 3.61 K/uL (1.2-3.4); MEAN CELL VOLUME 93.3 fL (80-100); MEAN CORPUSCULAR HEMOGLOBIN 31.2 pg (25-34); MEAN CORPUSCULAR HGB CONC 33.4 g/dl (32-36); MEAN PLATELET VOLUME 10.5 fL (7.4-10.4); MONO ABS # 0.44 K/uL (0.11-0.59); NEUT % 61.9 %; NEUT ABS # 6.81 K/uL (1.4-6.5); PLATELET COUNT 246 K/uL (130-400); RED CELL DISTRIBUTION WIDTH CV 14.3 % (11.5-14.5); RED CELL DISTRIBUTION WIDTH SD 48.5 fL (36.4-46.3)
[2018-01-07] MEDS ORDERED: METH5TAB2 PO (01:11)
[2018-01-07] MEDS ORDERED: DSY100 PO (01:11)
[2018-01-07] MEDS ORDERED: OXYC-90 PO (01:12)
[2018-01-07 02:03] LABS: ALBUMIN 3.7 gm/dl (3.4-5.0); ALT/SGPT 22 U/L (12-78); AST/SGOT 17 U/L (15-37); BLOOD UREA NITROGEN 13 mg/dl (7-18); CALCIUM 9.5 mg/dl (8.5-10.1); CARBON DIOXIDE 26 mmol/L (21-32); CREATININE 1.23 mg/dl (0.60-1.20); GLUCOSE 100 mg/dl (70-99); POTASSIUM 3.9 mmol/L (3.5-5.1); SODIUM 137 mmol/L (136-145)
[2018-01-07 02:09] LABS: ALKALINE PHOSPHATASE 127 U/L (45-117); TOTAL PROTEIN 8.3 gm/dl (6.4-8.2)
[2018-01-07] MEDS ORDERED: LEVOTHYROXINE 100 MCG TAB PO ONE (02:30)
[2018-01-07 02:59] VITALS: BP 138/76; PULSE 69; O2SAT 94
--- NOTE | 2018-01-07 06:22 | DIAGNOSTIC IMAGING REPORT ---
CHEST 2 VIEWS ROUTINE CLINICAL HISTORY: Fall trauma COMPARISON STUDY: 07/12/2017 FINDINGS: The bones soft tissues and hemidiaphragms are normal. The cardiomediastinal silhouette is normal. The lungs are clear. The pulmonary vasculature is normal. IMPRESSION: Negative chest. The above report was generated using voice recognition software. It may contain grammatical, syntax or spelling errors. Electronically signed by: Torres Buchanan M.D. 01/07/2018 6:21 AM Dictated Date/Time: 01/07/2018 6:20 AM
--- NOTE | 2018-01-07 06:23 | DIAGNOSTIC IMAGING REPORT ---
L SHOULDER MIN 2 VIEWS ROUTINE CLINICAL HISTORY: fall. left shoulder trauma. Pain. COMPARISON: None. DISCUSSION: The bones and joint spaces appear intact. There is no evidence of fracture, dislocation or bony disease. Minimal degenerative change. IMPRESSION: No acute process. The above report was generated using voice recognition software. It may contain grammatical, syntax or spelling errors. Electronically signed by: Torres Buchanan M.D. 01/07/2018 6:22 AM Dictated Date/Time: 01/07/2018 6:21 AM
--- NOTE | 2018-01-08 01:02 | EMERGENCY ROOM VISIT NOTE ---
History First contact with patient: 00:22 Chief Complaint: BACK PAIN Stated Complaint: LOWER AND UPPER BACK PAIN, L SHOULDER AND ELBOW History of Present Illness The patient is a 47 year old female who presents to the Emergency Room with complaints of pain in her back and left shoulder for the past week. The patient has a history of long-standing back pain. She is followed with the [facility], and evidently she is being weaned off of her methadone and onto Percocet. As she has been weaned off her methadone her pain has worsened. The patient states that she is nauseated and is not taking any of her other medications other than the pain medicine. She evidently has an appointment in 2 days with her primary care physician, but states her pain became so bad she decided to come to the ER [facility]. The patient reports having multiple " passing out" episodes this week "because my pain is so bad". She believes she may have hurt her left shoulder during one of these episodes. The patient has not had fever or chills. She does not report shortness of breath. She evidently does have a history of cardiac disease. She rates her current pain a 10/10. Review of Systems More than 10 systems were reviewed and otherwise negative with the exception of history of present illness. Past Medical/Surgical History Medical Problems: (1) Anxiety (2) Chronic pain syndrome (3) Coronary artery disease (4) Depression (5) Diverticulitis (6) fibromyalgia (7) H/O traumatic brain injury (8) History of heart attack (9) Hypothyroidism (10) IBS (irritable bowel syndrome) (11) Migraines Surgical Problems: (1) Appendectomy (2) Bilateral tubal ligation (3) section (4) Cholecystectomy (5) H/O colonoscopy (6) H/O cystoscopy (7) H/O esophagogastroduodenoscopy (8) Hysterectomy (9) knee surgery (10) S/P lymph node biopsy Family History Cancer FATHER (bladder CA) GRANDMOTHER (cervical CA) Diabetes mellitus MOTHER FH: migraines SISTER SISTER SISTER FH: thyroid disease MOTHER SISTER Gallbladder disease Heart disease Hypertension FATHER MOTHER Kidney disease Kidney stones Lung disease Seizures SISTER Stroke MOTHER Social History Smoking Status: Current Every Day Smoker Alcohol Use: none Marital Status: Housing Status: lives with family Occupation Status: disabled Current/Historical Medications Scheduled Levothyroxine Sodium (Synthroid), 300 MCG PO DAILY Lidocaine (Lidocaine), 1 PATCH TD DAILY Methadone Hcl (Dolophine), 5 MG PO DAILY Trazodone HCl (Trazodone HCl), 100 MG PO HS Scheduled PRN Furosemide (Lasix), 40 MG PO DIRECTED PRN for FLUID RETENTION Nitroglycerin (Nitrostat), 0.4 MG UT UD PRN for Chest Pain Oxycodone Ir (Roxicodone Ir), 5 MG PO TID PRN for Severe Pain Rizatriptan Benzoate (Maxalt-Hardware Press Operator), 10 MG PO UD PRN for Migraine Physical Exam Vital Signs Date Time Temp Pulse Resp B/P (MAP) Pulse Ox O2 Delivery O2 Flow Rate FiO2 01/07/18 02:59 69 20 138/76 94 Room Air 01/07/18 01:19 88 20 136/117 96 Room Air 01/06/18 23:50 37.2 94 16 143/89 96 Room Air Physical Exam VITALS: Vitals are noted on the nurse's note and reviewed by myself. Vital signs stable. GENERAL: White female who appears older than her stated age. HEAD: Normocephalic atraumatic. NECK: Supple without nuchal rigidity. No lymphadenopathy. No thyromegaly. Cervical spine is mildly tender in the low C-spine into the T-spine HEART: Regular rate and rhythm without murmurs gallops or rubs. LUNGS: Clear to auscultation bilaterally without wheezes, rales or rhonchi. No retractions or accessory muscle use. ABDOMEN: Positive normal bowel sounds x 4. Soft, nontender, without masses or organomegaly. No guarding or rebound tenderness. BACK: Positive tenderness in the lower lumbar spine and bilateral SI joints. Negative straight leg raise. No saddle paresthesias. MUSCULOSKELETAL: No muscle atrophy, erythema, or edema noted. Full range of motion in all extremities. Medical Decision & Procedures ER Provider Diagnostic Interpretation: CHEST 2 VIEWS ROUTINE CLINICAL HISTORY: Fall trauma COMPARISON STUDY: 07/12/2017 FINDINGS: The bones soft tissues and hemidiaphragms are normal. The cardiomediastinal silhouette is normal. The lungs are clear. The pulmonary vasculature is normal. IMPRESSION: Negative chest. L SHOULDER MIN 2 VIEWS ROUTINE CLINICAL HISTORY: fall. left shoulder trauma. Pain. COMPARISON: None. DISCUSSION: The bones and joint spaces appear intact. There is no evidence of fracture, dislocation or bony disease. Minimal degenerative change. IMPRESSION: No acute process. Laboratory Results 01/07/18 00:54 Red Blood Count 4.81, Mean Corpuscular Volume 93.3, Mean Corpuscular Hemoglobin 31.2, Mean Corpuscular Hemoglobin Concent 33.4, Mean Platelet Volume 10.5, Neutrophils (%) (Auto) 61.9, Lymphocytes (%) (Auto) 32.8, Monocytes (%) (Auto) 4.0, Eosinophils (%) (Auto) 0.9, Basophils (%) (Auto) 0.2, Neutrophils # (Auto) 6.81, Lymphocytes # (Auto) 3.61, Monocytes # (Auto) 0.44, Eosinophils # (Auto) 0.10, Basophils # (Auto) 0.02 01/07/18 00:54 Test 01/07/18 00:54 01/07/18 01:04 01/07/18 01:20 01/07/18 02:12 White Blood Count 11.00 K/uL (4.8-10.8) Red Blood Count 4.81 M/uL (4.2-5.4) Hemoglobin 15.0 g/dL (12.0-16.0) Hematocrit 44.9 % (37-47) Mean Corpuscular Volume 93.3 fL (80-100) Mean Corpuscular Hemoglobin 31.2 pg (25-34) Mean Corpuscular Hemoglobin Concent 33.4 g/dl (32-36) Platelet Count 246 K/uL (130-400) Mean Platelet Volume 10.5 fL (7.4-10.4) Neutrophils (%) (Auto) 61.9 % Lymphocytes (%) (Auto) 32.8 % Monocytes (%) (Auto) 4.0 % Eosinophils (%) (Auto) 0.9 % Basophils (%) (Auto) 0.2 % Neutrophils # (Auto) 6.81 K/uL (1.4-6.5) Lymphocytes # (Auto) 3.61 K/uL (1.2-3.4) Monocytes # (Auto) 0.44 K/uL (0.11-0.59) Eosinophils # (Auto) 0.10 K/uL (0-0.5) Basophils # (Auto) 0.02 K/uL (0-0.2) RDW Standard Deviation 48.5 fL (36.4-46.3) RDW Coefficient of Variation 14.3 % (11.5-14.5) Immature Granulocyte % (Auto) 0.2 % Immature Granulocyte # (Auto) 0.02 K/uL (0.00-0.02) Anion Gap 6.0 mmol/L (3-11) Estimated GFR () 60.9 Estimated GFR (Non- 52.6 BUN/Creatinine Ratio 10.5 (10-20) Calcium Level 9.5 mg/dl (8.5-10.1) Total Bilirubin 0.2 mg/dl (0.2-1) Aspartate Amino Transf (AST/SGOT) 17 U/L (15-37) Alanine Aminotransferase (ALT/SGPT) 22 U/L (12-78) Alkaline Phosphatase 127 U/L (45-117) Total Protein 8.3 gm/dl (6.4-8.2) Albumin 3.7 gm/dl (3.4-5.0) Globulin 4.6 gm/dl (2.5-4.0) Albumin/Globulin Ratio 0.8 (0.9-2) Thyroid Stimulating Hormone (TSH) 248.000 uIu/ml (0.300-4.500) Free Thyroxine 0.36 ng/dl (0.80-1.60) Chemistry Specimen Hemolysis Bedside Troponin I 0.030 ng/ml (0-0.045) Urine Color YELLOW Urine Appearance CLEAR (CLEAR) Urine pH 6.0 (4.5-7.5) Urine Specific Elmer 1.024 (1.000-1.030) Urine Protein NEG (NEG) Urine Glucose (UA) NEG (NEG) Urine Ketones NEG (NEG) Urine Occult Blood TRACE (NEG) Urine Nitrite NEG (NEG) Urine Bilirubin NEG (NEG) Urine Urobilinogen NEG (NEG) Urine Leukocyte Esterase NEG (NEG) Urine WBC (Auto) 5-10 /hpf (0-5) Urine RBC (Auto) 0-4 /hpf (0-4) Urine Hyaline Casts (Auto) 1-5 /lpf (0-5) Urine Epithelial Cells (Auto) >30 /lpf (0-5) Urine Bacteria (Auto) 1+ (NEG) Urine Crystals CALCIUM OXALATE (NONE Urine Mucus PRESENT (NONE PRSENT) Urine Opiates Screen NEG (NEG) Urine Methadone, Qualitative POS (NEG) Urine Barbiturates NEG (NEG) Urine Phencyclidine (PCP) Level NEG (NEG) Ur Amphetamine/Methamphetamine NEG (NEG) MDMA (Ecstasy) Screen POS (NEG) Urine Benzodiazepines Screen NEG (NEG) Urine Cocaine Metabolite NEG (NEG) Urine Marijuana (THC) NEG (NEG) Free Triiodothyronine 1.30 pg/ml (2.30-4.20) Lyme Disease IgG Antibody NEG (NEG) Lyme Disease IgM Antibody NEG (NEG) Medications Administered Medications (Trade) Dose Ordered Sig/Marlin Route Start Time Stop Time Status Last Admin Dose Admin Sodium Chloride 1,000 ml @ 999 mls/hr Q1H1M ONCE IV 01/07/18 00:45 01/07/18 01:45 DC 01/07/18 01:04 999 MLS/HR Ketorolac Tromethamine (Toradol Inj) 30 mg NOW STAT IV 01/07/18 00:36 01/07/18 00:40 DC 01/07/18 01:06 30 MG Dexamethasone Sodium Phosphate (Dexamethasone Inj Pf) 10 mg NOW ONCE IV 01/07/18 00:45 01/07/18 00:46 DC 01/07/18 01:06 10 MG Acetaminophen 1000 mg/Empty Bag 100 ml @ 400 mls/hr NOW ONCE IV 01/07/18 00:45 01/07/18 00:59 DC 01/07/18 01:05 400 MLS/HR Ondansetron HCl (Zofran Inj) 4 mg NOW STAT IV 01/07/18 00:39 01/07/18 00:40 DC 01/07/18 01:06 4 MG Levothyroxine Sodium (Synthroid Tab) 300 mcg NOW ONCE PO 01/07/18 02:30 01/07/18 02:31 DC 01/07/18 02:38 300 MCG ECG Per My Interpretation Change: Normal sinus rhythm @70bpm Right superior axis deviation Low voltage QRS Abnormal ECG When compared with ECG of 12-JUL-2017 06:29, QRS axis Shifted left ED Course Physical exam and history were performed. Nursing notes, EMR, and Medication List were personally reviewed. Patient appears to have vague reports of fainting episodes secondary to her pain from her back. The patient is known to the ER and did have an MRI a few months ago that did not show significant process. I was able to review the [facility] records, the patient has had reports of these identical symptoms ongoing for the past few weeks. She is being tapered off her methadone, and freely admits that she is not taking her other medications because of nausea. The patient does not appear toxic on examination. EKG was performed and reviewed by myself as above. IV access was established and labs are obtained. The patient was hydrated and medicated as above. Chest x-ray was performed. She was placed on the cardiac monitor technician. The patient's blood work is as above and was reviewed. She does not have a significantly elevated white blood cell count, gross anemia, bandemia, or significant electrolyte. Urine is without evidence of infection. Troponin is negative. Chest x-ray was reviewed by myself and radiology showing no acute process. Shoulder x-ray is also without acute findings. The patient does have a notably elevated TSH, but does have a history of hypothyroidism. The case was discussed with my attending physician, and we did treat her with oral Synthroid here in the department at her normal dose. We discussed the case with case management, and the patient does not meet admission criteria for hyperthyroidism. I suspect her TSH is elevated secondary to medication nonadherence. Of note her drug screen is positive for methadone, but not the Percocet that she is prescribed. On reevaluation the patient had some mild but not significant improvement of her symptoms. I had a lengthy discussion with her regarding her symptoms. I do not suspect that she is having an acute cardiopulmonary event, or neurologic event causing her "passing out" episodes. The patient was instructed to take her medications as prescribed. She has multiple specialty appointments in the next 3-4 days, and was instructed to keep these appointments. She was otherwise invited back to the ER with any new, worsening, or concerning symptoms. The chart was completed utilizing [employer] Speech Voice Recognition Software. Grammatical errors, random word insertions, pronoun errors, and incomplete sentences are an occasional consequence of this system due to software limitations, ambient noise, and hardware issues. Any formal questions or concerns about the content, text, or information contained within the body of this dictation should be directly addressed to the provider for clarification. . Medical Decision Differential diagnosis: Etiologies such as vasovagal event, infection, hypoglycemia, electrolyte abnormalities, cardiac sources, intracerebral event, toxicologic, neurologic, as well as others were entertained. Blood Pressure Screening Patient's blood pressure: Normal blood pressure Impression Primary Impression: Fainting episodes Additional Impressions: Hypothyroidism Chronic back pain Departure Information Dispostion Home / Self-Care Condition GOOD Forms HOME CARE DOCUMENTATION FORM, IMPORTANT VISIT INFORMATION Patient Instructions My [facility] Additional Instructions You were seen and evaluated today on an emergency basis only. This is not a substitute for, or an effort to provide, complete comprehensive medical care. It is not possible to recognize and treat all injuries or illnesses in a single emergency department visit. For this reason it is recommended that you followup with your primary care physician this week as scheduled. Continue your at-home medications as prescribed. Take your Synthroid as prescribed. This is likely contributing to how you are feeling. The Emergency Department is not able to treat chronic pain. Please discuss your pain control needs with your primary care physician and specialists. You are welcome to return to the emergency department anytime with new, worsening, or concerning symptoms. Problem Qualifiers
== END 2018-01-07 03:16 | disposition home or self-care (01) ==
LOC: C.EDB 23:45
DX: R55 Syncope and collapse (principal); E03.9 Hypothyroidism, unspecified; M54.5 Low back pain; G89.29 Other chronic pain; F17.200 Nicotine dependence, unspecified, uncomplicated

== ENCOUNTER 2018-10-05 22:50 | Observation (INO) ==
--- OUTSIDE RECORDS SUMMARY | 2018-10-05 22:54 | External Medical Summary | Continuity of Care Document ---
:1970 Author Name Inocencio Fonseca, Provider Address Unavailable Unavailable , Care Team Providers Name Role Phone Taran VILLATORO M.D., E. PBabatunde Unavailable [email or web address] Sue RYAN Unavailable Unavailable Problems Active medical history not documented Allergies and Adverse Reactions Allergy history not documented Medications Medications not documented Procedures Procedures not documented Immunizations Immunizations not documented Plan of Treatment Planned Observations Planned Goals not documented Results No Known Results Results not documented Encounters Appointment; Anila Chirinos III, M.D. 27-Feb-2018 15:30 Encounter Diagnosis: Problem not documented
[2018-10-05] MEDS ORDERED: HYDROmorphone INJ 1 MG/ML SYRINGE IV STA (23:24)
[2018-10-05] MEDS ORDERED: SODIUM CHLORIDE 0.9% 1000ML 1,000 ML IV ONE (23:24)
[2018-10-05] MEDS ORDERED: ONDANSETRON INJ 2 MG/ML 2 ML VIAL IV STA (23:24)
[2018-10-05 23:31] LABS: Basophils # (auto) 0.01 K/uL (0-0.2); Basophils % (auto) 0.1 %; Eosinophils # (auto) 0.02 K/uL (0-0.5); Eosinophils % (auto) 0.2 %; Hematocrit (blood only) 45.6 % (37-47); Immature Granulocytes # (auto) 0.03 K/uL (0.00-0.02); Immature Granulocytes % (auto) 0.2 %; Lymphocytes # (auto) 2.74 K/uL (1.2-3.4); Mean Corpuscular Hgb Conc 35.1 g/dL (32-36); Mean Corpuscular Volume 86.4 fL (80-100); Mean Platelet Volume 11.2 fL (7.4-10.4); Monocytes # (auto) 0.56 K/uL (0.11-0.59); Monocytes % (auto) 4.3 %; Neutrophils # (auto) 9.71 K/uL (1.4-6.5); Neutrophils % (auto) 74.2 %; Platelet Count 281 K/uL (130-400); RDW Standard Deviation 41.3 fL (36.4-46.3); Red Blood Count 5.28 M/uL (4.2-5.4); White Blood Count 13.07 K/uL (4.8-10.8)
[2018-10-05 23:41] LABS: Blood Urea Nitrogen 10 mg/dl (7-18); Calcium 10.8 mg/dl (8.5-10.1); Carbon Dioxide 25 mmol/L (21-32); Chloride 108 mmol/L (98-107); Est GFR (African American) 82.7; Est GFR (Non-African American) 71.3; Glucose 125 mg/dl (70-99); Potassium 3.3 mmol/L (3.5-5.1); Sodium 140 mmol/L (136-145)
[2018-10-06] MEDS ORDERED: HYDROmorphone INJ 1 MG/ML SYRINGE IV STA ×3 (00:14→03:51)
[2018-10-06] MEDS ORDERED: ONDANSETRON INJ 2 MG/ML 2 ML VIAL IV STA ×2 (01:42→03:51)
[2018-10-06] MEDS ORDERED: DEXAMETHASONE **PF** INJ 10 MG/ML VIAL IV ONE (02:24)
--- NOTE | 2018-10-06 04:58 | History and Physical Report ---
DATE OF ADMISSION: 10/06/2018 CHIEF COMPLAINT: Severe back pain. HISTORY OF PRESENT ILLNESS: This is a 48-year-old female with past medical history that includes hypothyroidism, irritable bowel syndrome, fibromyalgia, lumbar disc bulging, migraine, chronic pain syndrome, opioid dependence, anxiety state, tobacco use disorder, presents with severe back pain. Patient says the back pain has been going on for some time in last 1 month when she fell and she went to chiropractor. It is getting worse in the last 2 days, it is severe. Pain is radiating to lower extremities and also she is having ambulatory dysfunction because of pain and she states she has couple of episodes of incontinence today.She came to the hospital today. Denies any fever, chills. No chest pain, no shortness of breath. No cough, no headache, no blurred visions, no sore throat. She was nauseous today. Currently resting comfortably and hemodynamically stable. ALLERGIES: NEURONTIN, REGLAN, SULFA ANTIBIOTICS, TDAP, TRAMADOL, ASPIRIN, SYMPATHOMIMETICS. PAST MEDICAL HISTORY: As mentioned above. PAST SURGICAL HISTORY: Right deep cervical lymph node biopsy, , colonoscopy, cystoscopy, EGD with biopsy, laparoscopic appendectomy, ligation of oviduct, partial hysterectomy, removal of gallbladder, video capsule endoscopy. MEDICATIONS: The patient is on levothyroxine 300 mcg p.o. daily, Cymbalta 20 mg p.o. daily, trazodone 100 mg p.o. at bedtime, Lasix 40 mg p.o. daily a.m., p.r.n., morphine 50 mg p.o. b.i.d. p.r.n., morphine 50 mg p.o. t.i.d., nitroglycerin 0.4 mg sublingual p.r.n., Zofran 4-8 mg p.o. q.i.d. p.r.n., Compazine 10 mg p.o. q.i.d. p.r.n., rizatriptan 10 mg p.o. q. 12 hours p.r.n. FAMILY HISTORY: Significant for mother has diabetes, hypertension, thyroid disorder. Father has hypertension. Paternal grandmother had ovarian, uterine cancer. SOCIAL HISTORY: , lives with . Smoked quarter pack a day for 20 years. Alcohol rarely. No drug use. REVIEW OF SYMPTOMS: As per HPI. Rest of the review of systems negative. PHYSICAL EXAMINATION: GENERAL: The patient is of moderate built, not in acute distress. VITAL SIGNS: Temperature 37.1, pulse 73, respiratory rate 16, blood pressure 100/70, oxygen 94% room air. HEENT: No pallor, no icterus. Pupils equal, round, and reactive to light. NECK: No JVD, no neck masses, no carotid bruits. CARDIOVASCULAR: S1, S2 heard, regular rate and rhythm, no murmur, no gallop. RESPIRATORY SYSTEM: Normal AP diameter. No accessory muscle use. No wheezing, no crackles. ABDOMEN: Soft, bowel sounds present. Nontender. No distention. CENTRAL NERVOUS SYSTEM: Cranial nerves II-XII grossly intact, nonfocal. MUSCULOSKELETAL: Bilateral straight leg test is positive. EXTREMITIES: No edema, no erythema. LABORATORY DATA: WBC 13, hemoglobin 16, hematocrit 45.6, platelets 281. Sodium 140, potassium 3.3, chloride 108, bicarbonate 25, BUN 10, creatinine 0.9, serum glucose 125, calcium 10.8. IMAGING DATA: Lumbar spine MRI official reading pending. ASSESSMENT AND PLAN: This is a 48-year-old female who presents with severe back pain and ambulatory dysfunction. 1. Severe back pain and ambulatory dysfunction, which has been going on for some time, but got worse in the last few days. We will follow the official reading of the MRI spine. We will give a dose of IV Solu-Medrol. Continue her home medication of morphine and IV Dilaudid p.r.n. Consult orthopedics and await their input, and PT/OT. 2. Hypothyroidism. Continue Synthroid. 3. Depression. Continue Cymbalta. 4. Tobacco use, needs counseling. 5. Deep venous thrombosis prophylaxis, sequential compression devices for now. 6. Disposition: Closely monitor in the medical floor. Level 1 full code. MTDD
[2018-10-06] MEDS ORDERED: ACETAMINOPHEN 325 MG TAB PO PRN (05:20)
[2018-10-06] MEDS ORDERED: methylPREDNISolone 125 MG/2 ML VIAL IV STA (05:20)
[2018-10-06] MEDS ORDERED: PROCHLORPERAZINE MALEATE 10 MG TAB PO PRN (05:20)
[2018-10-06] MEDS ORDERED: POTASSIUM CHLORIDE 10 MEQ TABCR PO STA (05:20)
[2018-10-06] MEDS ORDERED: NITROGLYCERIN SL 0.4 MG/TAB TAB SL PRN (05:20)
[2018-10-06] MEDS ORDERED: ONDANSETRON INJ 2 MG/ML 2 ML VIAL IV PRN (05:20)
[2018-10-06] MEDS ORDERED: RIZATRIPTAN BENZOATE 10 MG TAB PO PRN (05:20)
[2018-10-06] MEDS ORDERED: FUROSEMIDE 40 MG TAB PO PRN (05:20)
[2018-10-06] MEDS ORDERED: methylPREDNISolone 60 MG in SYRINGE 0 ML IV SCH (06:00)
[2018-10-06] MEDS: LEVOTHYROXINE SODIUM 100 MCG TABLET PO SCH (06:13)
[2018-10-06] MEDS: MoRPHine SULFATE IR 15 MG TAB (IMMEDIATE RELEASE) PO PRN ×2 (06:19→18:11)
--- NOTE | 2018-10-06 07:22 | Emergency Department Note ---
Entered by Aman Landis acting as a scribe for ED Provider Note Name: Jessica Schneider Age: 48,F Arrives Via: Private Vehicle Informant: Patient CC: Back Pain HPI: A 48 year old female arrives for evaluation of constant and worsening back pain for the past month. The patient states she has had back pain for the past couple years. She states she fell in the winter and went to a chiropractor a month ago. She states her leg pain started a month ago. The patient states her back pain radiates down to her legs. She states the pain radiates all the way down her right leg and states the pain radiates down to her left leg half-way. She states she has been vomiting because of the pain. She notes she has a little loss of bowel and bladder control. The patient states she was supposed to get a MRI but has not received a call yet. She states her last MRI was taken a year ago. She notes she goes to a pain management clinic for her pain. The patient denies fevers, abdominal pain, rashes, any recent falls, taking drugs, and drinking alcohol. The patient notes she smokes. ROS: See above HPI for pertinent positives & negatives. A total of 10 systems reviewed and were otherwise negative. Past Medical History: See Below Past Surgical History: See Below Social History: Smoker Home Medications: See Below Allergies Gabapentin, Tramadol, Chlorpheniramine, guaifenesin, and metoclopramide Physical: Vitals: BP: 108/91. P: 96. R: 20. O2: 98 Exam: GENERAL: Patient is uncomfortable appearing and in moderate distress. EYES: No scleral icterus, unremarkable pupils. ENT: Mucous membranes moist, no nasal congestion. NECK: No masses appreciated, no meningismus, trachea is midline. RESPIRATORY: No dyspnea. Clear to auscultation and equal bilaterally. No wheeze, no rhonchi. CARDIOVASCULAR: Regular rate and rhythm. No murmurs, rubs, gallops appreciated. GASTROINTESTINAL: Abdomen soft, non-tender, no peritonitis. Bowel sounds positive. No masses appreciated. BACK: No midline tenderness, no CVA tenderness EXTREMITIES: Normal motion all extremities, no cyanosis, no edema. NEUROLOGIC: Alert and oriented, no acute motor or sensory deficits, no focal weakness, cranial nerves grossly intact. SKIN: No rash, no jaundice, no diaphoresis. ED Course: Prior Medical Record, Triage/Nursing Notes, Medications, Allergies reviewed by Me Vital Signs: reviewed and remarkable for wnl Labs: Reviewed and unremarkable Interventions: Saline Lock, Dilaudid 1mg IV x 3, Zofran 4mg IV x 2, NSS bolus, Decadron 10mg IV Imaging: [facility] Radiologist interpretation reviewed by me: MRI similar to 2013 with disc bulge and nerve impingement. Consults: 0257: I consulted with Dr. Mahoney regarding this patient. He will evaluate the patient for further management. Reassessments/Times: 2314: The patient was evaluated in room A3, and a complete history and physical examination were performed. 0100: The patient is currently getting a MRI. 0224: I reevaluated the patient. She states her pain is starting to return. She notes she is unable to stay comfortable. I discussed the pros and cons of steroids. She is now agreeable to steroids. 0356: I reevaluated the patient. She is still having pain and has requested for more pain medication. Blood pressure: Normal. No Referral necessary Disposition: Hospitalization Differentials: Differential: Musculoskeletal, Disc Herniation, Fracture, Cord Compression, Discitis, Infectious, Aortic Pathology, Renal Colic, UTI/Pyelonephritis, Acute Exacerbation of Chronic Pain, Sciatica, Cauda Equina, amongst other pathologies entertained. Medical Decision Makin yr old female with long history of chronic pain issues arrives with worsening lower back pain after injury a few weeks/months ago. Noting leg weakness and periodic loss bowel/bladder. Exam without neuro deficits though given intractable pain and reported symptoms felt that MRI indicated. MRI is similar to one from a few years ago though does show real disease. Attempted to get in touch with Spine but unfortunately listed ortho was apparently not collision center manager per his PA-C. Neuro intact throughout. Work-up benign otherwise. Due to intractable pain will bring in for pain control and spine eval as needed. Impression: Intractable Low Back Pain Bulging Lumbar Disc Tony Griffin MD The scribe's documentation has been prepared under my direction and personally reviewed by me in its entirety. I confirm that the note above accurately reflects all work, treatment, procedures, and medical decision making performed by me. Impression & Plan Intractable low back pain, Bulging lumbar disc Past Med/Surg History Medical History Hx of hysterectomy Atelectasis Hypokalemia Cardiomyopathy (Resolved) 2014 - thought to be stress induced, reported normal dobutamine stress and echo after Fibromyalgia (Chronic) Opiate dependence (Chronic) Tobacco abuse (Chronic) Hypothyroidism (Chronic Unknown) Chronic pain syndrome (Chronic) Migraines (Chronic) H/O traumatic brain injury (Chronic) Anxiety (Chronic) Depression (Chronic) IBS (irritable bowel syndrome) (Chronic) Chronic back pain (Chronic) Surgical History Hx of cholecystectomy Hx of appendectomy section (Chronic Unknown) Bilateral tubal ligation (Chronic Unknown) S/P lymph node biopsy (Chronic) "deep cervical inflammatory node 2007" H/O colonoscopy (Chronic) "2006 path normal" H/O esophagogastroduodenoscopy (Chronic) "2006 path normal" H/O cystoscopy (Chronic) Family History Other Diabetes Hypertension Thyroid disorder Social History Preferred Language: Amharic Communication Ability: Effective Visual Impairment: Partially Limited Snapper On Required: No Beliefs That Will Affect Care: None marital status: Current Living Situation: Spouse Other Information That Helps Us Care for You: No Feels Safe at Home: Yes Safety Concerns: Feels Safe At This Time Smoking Status: Current every day smoker Tobacco Type: cigarettes Cigarettes Per Day: 10 Do You Dip or Chew Tobacco: No Second Hand Exposure: No Tobacco Cessation Education Requested by Patient: No Hx Alcohol Use: No Hx Substance Use: No Results & Data Vital Signs Vital Signs - 24 hr 10/05/18 22:56 10/05/18 23:04 10/06/18 01:38 Temperature 37.1 C Temperature Source Oral Sepsis Recent Fever Within 48 Hours No Sepsis Action Taken by Nursing No Action Required Pulse Rate 96 H Pulse Rate [Right Finger] 73 Respiratory Rate 20 16 Blood Pressure Blood Pressure [Left Arm] Blood Pressure [Right Arm] 108/91 100/70 Blood Pressure Mean [Left Arm] Blood Pressure Mean [Right Arm] 96 80 Blood Pressure Position [Left Arm] Blood Pressure Position [Right Arm] Sitting Pulse Oximetry 98 94 Oxygen Delivery Method Room Air 10/06/18 04:27 10/06/18 04:40 Temperature 36.8 C Temperature Source Oral Sepsis Recent Fever Within 48 Hours Sepsis Action Taken by Nursing Pulse Rate 70 Pulse Rate [Right Finger] 72 Respiratory Rate 18 14 Blood Pressure 117/71 Blood Pressure [Left Arm] 130/79 Blood Pressure [Right Arm] Blood Pressure Mean [Left Arm] 96 Blood Pressure Mean [Right Arm] Blood Pressure Position [Left Arm] Lying Blood Pressure Position [Right Arm] Pulse Oximetry 92 92 Oxygen Delivery Method Room Air Room Air Home Medications Current Medication List: was personally reviewed by me Laboratory Data Attestation: I reviewed the patient's lab results. Result diagrams: 10/05/18 23:15 10/05/18 23:15 Lab Results 10/05/18 10/05/18 Range/Units 23:15 23:15 WBC 13.07 H (4.8-10.8) K/uL RBC 5.28 (4.2-5.4) M/uL Hgb 16.0 (12.0-16.0) g/dL Hct 45.6 (37-47) % MCV 86.4 (80-100) fL MCH 30.3 (25-34) pg MCHC 35.1 (32-36) g/dL RDW Std Deviation 41.3 (36.4-46.3) fL RDW Coeff of Roro 13.0 (11.5-14.5) % Plt Count 281 (130-400) K/uL MPV 11.2 H (7.4-10.4) fL Immature Gran % (Auto) 0.2 % Neut % (Auto) 74.2 % Lymph % (Auto) 21.0 % [place] % (Auto) 4.3 % Eos % (Auto) 0.2 % Baso % (Auto) 0.1 % Immature Gran # (Auto) 0.03 H (0.00-0.02) K/uL Neut # (Auto) 9.71 H (1.4-6.5) K/uL Lymph # (Auto) 2.74 (1.2-3.4) K/uL [place] # (Auto) 0.56 (0.11-0.59) K/uL Eos # (Auto) 0.02 (0-0.5) K/uL Baso # (Auto) 0.01 (0-0.2) K/uL Sodium 140 (136-145) mmol/L Potassium 3.3 L (3.5-5.1) mmol/L Chloride 108 H (98-107) mmol/L Carbon Dioxide 25 (21-32) mmol/L Anion Gap 7.0 (3-11) BUN 10 (7-18) mg/dl Creatinine 0.95 (0.6-1.2) mg/dl Est Cr Clr Drug Dosing Not Reportable Est GFR ( Amer) 82.7 Est GFR (Non-Af Amer) 71.3 BUN/Creatinine Ratio 10.0 (10-20) Glucose 125 H (70-99) mg/dl Calcium 10.8 H (8.5-10.1) mg/dl Administered Medications Levothyroxine Sodium (Synthroid) 300 mcg PO DAILYBB ANDREW Stop: 11/05/18 06:29 Last Admin: 10/06/18 06:13 Dose: 300 mcg Documented by: [id number] Morphine Sulfate (Morphine Sulfate Ir) 15 mg PO BID PRN PRN Reason: Breakthrough Pain Stop: 10/20/18 05:19 Last Admin: 10/06/18 06:19 Dose: 15 mg Documented by: [id number] Discontinued Medications Dexamethasone Sodium Phosphate (Decadron Pf) 10 mg IV NOW ONE Stop: 10/06/18 02:25 Last Admin: 10/06/18 02:28 Dose: 10 mg Documented by: [id number] Hydromorphone HCl (Dilaudid) 1 mg IV NOW STA Stop: 10/05/18 23:25 Last Admin: 10/05/18 23:35 Dose: 1 mg Documented by: [id number] Hydromorphone HCl (Dilaudid) 1 mg IV NOW STA Stop: 10/06/18 00:15 Last Admin: 10/06/18 00:17 Dose: 1 mg Documented by: [id number] Hydromorphone HCl (Dilaudid) 1 mg IV NOW STA Stop: 10/06/18 02:25 Last Admin: 10/06/18 02:28 Dose: 1 mg Documented by: [id number] Hydromorphone HCl (Dilaudid) 1 mg IV NOW STA Stop: 10/06/18 03:52 Last Admin: 10/06/18 03:55 Dose: 1 mg Documented by: [id number] Sodium Chloride (Nss 1000ml) 1,000 mls @ 999 mls/hr IV .Q1H1M ONE Stop: 10/06/18 00:24 Last Infusion: 10/06/18 00:40 Dose: 0 mls/hr Documented by: [id number] Admin: 10/05/18 23:35 Dose: 999 mls/hr Documented by: [id number] Methylprednisolone 60 mg/ (Syringe) 0.96 mls @ 1.5 mls/min IV TODAY@0600 ANDREW Stop: 10/06/18 06:01 Last Admin: 10/06/18 06:13 Dose: 1.5 mls/min Documented by: [id number] Ondansetron HCl (Zofran) 4 mg IV NOW STA Stop: 10/05/18 23:25 Last Admin: 10/05/18 23:35 Dose: 4 mg Documented by: [id number] Ondansetron HCl (Zofran) 4 mg IV NOW STA Stop: 10/06/18 01:43 Last Admin: 10/06/18 01:44 Dose: 4 mg Documented by: [id number] Ondansetron HCl (Zofran) 4 mg IV NOW STA Stop: 10/06/18 03:52 Last Admin: 10/06/18 03:55 Dose: 4 mg Documented by: [id number] Potassium Chloride (Klor-Con M10) 20 meq PO NOW STA Stop: 10/06/18 05:21 Last Admin: 10/06/18 06:12 Dose: 20 meq Documented by: [id number] Discharge Plan Visit Data *Final* Discharge Date/Time: 10/06/18 04:27 Chief Complaint: Back Injury/Pain Stated Complaint: BACK AND LEG PAIN ED Provider: Tony Griffin Discharge Problem: Intractable low back pain, Bulging lumbar disc Patient Disposition: Admitted As Inpatient Discharge Instructions Interventions: ED Discharge Assessment Last Done: 10/06/18 04:27 The scribe's documentation has been prepared under my direction and personally reviewed by me in its entirety. I confirm that the note above accurately reflects all work, treatment, procedures, and medical decision making performed by me.
[2018-10-06] MEDS: DULOXETINE HCL 20 MG CAP PO SCH (08:35)
[2018-10-06] MEDS: ASPIRIN 81 MG ECTAB PO SCH (08:35)
[2018-10-06] MEDS: MoRPHine SULFATE CR 15 MG TABCR PO SCH ×3 (08:37→21:20)
--- NOTE | 2018-10-06 10:58 | Magnetic Resonance Report ---
MRI OF THE LUMBAR SPINE WITHOUT CONTRAST CLINICAL HISTORY: Low back pain, right leg weak, loss bowel/bladder COMPARISON STUDY: Lumbar spine MRI October 28, 2017. TECHNIQUE: Utilizing a 1.5 Yaa magnet and dedicated coil, multiplanar, multiecho imaging of the janusz mbar spine was performed without IV contrast. FINDINGS: For purposes of numbering on this exam, the L5-S1 disc space is assigned to axial image 23 of 25. Ali gnment of the lumbar spine is anatomic. Vertebral body heights are maintained. There is no intracanal icular mass or fluid collection. Conus terminates at the L1 level. Paravertebral soft tissues are unr emarkable. L1-2: The central canal and neural foramen are patent. L2-3: The central canal and neural foramen are patent. L3-4: The central canal and neural foramen are patent. L4-5: There is a small right paracentral disc protrusion with annular tear. There is mild narrowing o f the right lateral recess. Central canal and neural foramen are patent. L5-S1: Central canal and neural foramen are patent. IMPRESSION: No change since MRI of October 28, 2017. Small right paracentral disc protrusion at L4-L5 wit h mild narrowing of the right lateral recess. No central canal stenosis. Electronically signed by: Yonas Carson M.D. 10/06/2018 10:56 AM
--- NOTE | 2018-10-06 11:19 | Orthopedic Consultation ---
Date of Consultation October 06, 2018 Assessment & Plan (1) Intractable low back pain: Reviewed her MRI personally. There is some evidence of modest degenerative disc disease and bulge at the at the L4-5 level. I do not appreciate any significant neural encroachment. The remainder of her spine appears to be very healthy and in excellent alignment. There is nothing surgical at this time. I suggest she return to her outpatient pain management service. Present on Admission?: Yes History of Present Illness Reason for Consultation: Back and bilateral leg pain Attending Physician: Eugenia Bowles MD History of Present Illness This is a 48-year-old female with a long-standing history of chronic back and bilateral leg pain admitted last evening with a marked exacerbation of symptoms. She describes pain extending down the right lower extremity to her foot and down the left lower extremity to her knee. She denies any precipitating trauma fall or event. She is unable to describe any perineal numbness or significant change in bowel bladder function. She does undergo pain management in a local facility. Allergies Allergy/AdvReac Type Severity Reaction Status Date / Time gabapentin Allergy Severe anaphylaxis Verified 10/06/18 02:51 tramadol Allergy Severe ANAPHYLAXIS Verified 10/06/18 02:51 chlorpheniramine Allergy Intermediate SHORTNESS Verified 10/06/18 02:51 OF BREATH guaifenesin Allergy Intermediate SHORTNESS Verified 10/06/18 02:51 OF BREATH metoclopramide AdvReac Intermediate anxiety Verified 10/06/18 02:51 Home Medications Home Medications Medication Instructions Recorded Confirmed Type rizatriptan 10 mg tablet 10 mg PO Q2H PRN 03/15/18 10/06/18 History aspirin [Aspir-81] 81 mg PO QAM 03/17/18 10/06/18 History furosemide [Lasix] 40 mg PO QAM PRN 03/17/18 10/06/18 History levothyroxine 300 mcg PO QAM 03/17/18 10/06/18 History nitroglycerin [Nitrostat] 0.4 mg SUBLINGUAL UD PRN 03/17/18 10/06/18 History ondansetron HCl [Zofran] 4 - 8 mg PO QID PRN 03/17/18 10/06/18 History trazodone 100 mg PO HS 03/18/18 10/06/18 History prochlorperazine maleate 10 mg PO QID PRN #30 tab 12/12/18 05/04/19 Rx [Compazine] duloxetine 20 mg PO QAM 10/06/18 10/06/18 History morphine 15 mg PO BID PRN 10/06/18 10/06/18 History morphine 15 mg PO TID 10/06/18 10/06/18 History Patient History Medical History Hx of hysterectomy Atelectasis Hypokalemia Cardiomyopathy (Resolved) 2014 - thought to be stress induced, reported normal dobutamine stress and echo after Fibromyalgia (Chronic) Opiate dependence (Chronic) Tobacco abuse (Chronic) Hypothyroidism (Chronic Unknown) Chronic pain syndrome (Chronic) Migraines (Chronic) H/O traumatic brain injury (Chronic) Anxiety (Chronic) Depression (Chronic) IBS (irritable bowel syndrome) (Chronic) Chronic back pain (Chronic) Surgical History Hx of cholecystectomy Hx of appendectomy section (Chronic Unknown) Bilateral tubal ligation (Chronic Unknown) S/P lymph node biopsy (Chronic) "deep cervical inflammatory node 2007" H/O colonoscopy (Chronic) "2006 path normal" H/O esophagogastroduodenoscopy (Chronic) "2006 path normal" H/O cystoscopy (Chronic) Family History Other Diabetes Hypertension Thyroid disorder Social History Preferred Language: Upper Sorbian Communication Ability: Effective Visual Impairment: Partially Limited Tester Food Products Required: No Beliefs That Will Affect Care: None marital status: Current Living Situation: Spouse Other Information That Helps Us Care for You: No Feels Safe at Home: Yes Safety Concerns: Feels Safe At This Time Smoking Status: Current every day smoker Tobacco Type: cigarettes Cigarettes Per Day: 10 Do You Dip or Chew Tobacco: No Second Hand Exposure: No Tobacco Cessation Education Requested by Patient: No Hx Alcohol Use: No Hx Substance Use: No Physical Exam Physical Exam: On exam she seems to have reasonable strength testing lower extremities. Sensory intact. Results & Data Vital Signs (Past 12 Hours) Vital Signs Temp Pulse Pulse Pulse Resp BP BP 10/06/18 07:30 36.6 C 75 16 113/75 10/06/18 04:40 36.8 C 72 14 130/79 10/06/18 04:27 70 18 117/71 10/06/18 01:38 73 16 BP Pulse Ox 10/06/18 07:30 94 10/06/18 04:40 92 10/06/18 04:27 92 10/06/18 01:38 100/70 94
[2018-10-06] MEDS: HYDROmorphone INJ 0.5 MG/0.5 ML SYR IV PRN ×3 (11:25→23:44)
--- NOTE | 2018-10-06 16:33 | Hospitalist Progress Note ---
Date of Service October 06, 2018 Assessment & Plan (1) Intractable low back pain: Presented with intractable low back pain, MRI of lumbar spine shows no significant radiculopathy, appreciate input from orthopedics No surgical intervention needed Patient will be continue with current conservative management, pain control, PT OT Given IV steroids We will order Lidoderm patch, muscle relaxant for paraspinal muscle spasm Present on Admission?: Yes (2) Chronic prescription opiate use: Patient follows with pain management clinic, will try to limit narcotics Present on Admission?: Yes (3) Hypothyroidism: Continue levothyroxine CODE STATUS: Full code DVT prophylaxis: Low risk SCD and teds patient is encouraged to ambulate Disposition: Expected to be discharged home in next 24 to 48 hours as back pain improves Subjective Patient sitting on chair, states the back pain mildly improved, still reports 7 out of 10 pain, no fever chills Physical Exam Constitutional: WD/WN, vitals as above no acute distress Eyes: PERRL, conjunctivae normal, anicteric sclerae ENMT: external ear and nose normal, oropharynx normal Neck: trachea midline, no thyromegaly Respiratory: normal respiratory effort, lungs clear to auscultation Cardiovascular: RRR, no murmur, no edema Gastrointestinal (Abdomen): normal bowel sounds, soft, nontender, no hepatosplenomegaly Musculoskeletal: no cyanosis or clubbing, extremities motor strength 5/5 Skin: no rashes, warm and dry Neurologic: PERRL, EOMI, accommodation nl, no face palsy, no dysarthria Psychiatric: A+Ox3, euthymic affect Results & Data Vital Signs (Past 12 Hours) Vital Signs Temp Pulse Pulse Resp BP Pulse Ox 10/06/18 15:41 36.6 C 76 20 136/82 90 10/06/18 11:45 36.7 C 78 16 110/76 92 10/06/18 07:30 36.6 C 75 16 113/75 94 10/06/18 04:40 36.8 C 72 14 130/79 92 (1) Hypothyroidism Hypothyroidism type: unspecified Qualified Code(s): E03.9 - Hypothyroidism, unspecified
[2018-10-06] MEDS ORDERED: methylPREDNISolone 4 MG TAB, 6 DAY TAPER PO SCH (17:30)
[2018-10-06] MEDS: LIDOCAINE 5% 1 PATCH TD SCH (18:18)
[2018-10-06] MEDS: methylPREDNISolone 4 MG TAB PO SCH ×4 (18:19→23:10)
[2018-10-06] MEDS ORDERED: TRAZODONE HCL 50 MG TAB PO SCH (21:00)
[2018-10-06] MEDS: CYCLOBENZAPRINE HCL 5 MG TAB PO SCH (21:20)
[2018-10-07] MEDS: LEVOTHYROXINE SODIUM 100 MCG TABLET PO SCH (05:47)
[2018-10-07] MEDS: methylPREDNISolone 4 MG TAB PO SCH ×2 (05:47→13:23)
[2018-10-07] MEDS: MoRPHine SULFATE IR 15 MG TAB (IMMEDIATE RELEASE) PO PRN (07:59)
[2018-10-07] MEDS: LIDOCAINE 5% 1 PATCH TD SCH (08:57)
[2018-10-07] MEDS: MoRPHine SULFATE CR 15 MG TABCR PO SCH ×2 (08:57→13:23)
[2018-10-07] MEDS: DULOXETINE HCL 20 MG CAP PO SCH (08:58)
[2018-10-07] MEDS: ASPIRIN 81 MG ECTAB PO SCH (08:58)
[2018-10-07] MEDS: CYCLOBENZAPRINE HCL 5 MG TAB PO SCH ×2 (08:58→13:23)
--- NOTE | 2018-10-07 17:37 | Discharge Summary ---
Date of Service October 07, 2018 Admission HPI Per Admitting Provider DICTATED BY: Edward Mahoney MD DATE OF ADMISSION: 10/06/2018 CHIEF COMPLAINT: Severe back pain. HISTORY OF PRESENT ILLNESS: This is a 48-year-old female with past medical history that includes hypothyroidism, irritable bowel syndrome, fibromyalgia, lumbar disc bulging, migraine, chronic pain syndrome, opioid dependence, anxiety state, tobacco use disorder, presents with severe back pain. Patient says the back pain has been going on for some time in last 1 month when she fell and she went to chiropractor. It is getting worse in the last 2 days, it is severe. Pain is radiating to lower extremities and also she is having ambulatory dysfunction because of pain and she states she has couple of episodes of incontinence today.She came to the hospital today. Denies any fever, chills. No chest pain, no shortness of breath. No cough, no headache, no blurred visions, no sore throat. She was nauseous today. Currently resting comfortably and hemodynamically stable. Principal Diagnosis Back pain Discharge Exam Constitutional WD/WN, vitals as above no acute distress Eyes PERRL, conjunctivae normal, anicteric sclerae ENMT external ear and nose normal, oropharynx normal Neck trachea midline, no thyromegaly Respiratory normal respiratory effort, lungs clear to auscultation Cardiovascular RRR, no murmur, no edema Gastrointestinal (Abdomen) normal bowel sounds, soft, nontender, no hepatosplenomegaly Musculoskeletal no cyanosis or clubbing, extremities motor strength 5/5 Skin no rashes, warm and dry Neurologic PERRL, EOMI, accommodation nl, no face palsy, no dysarthria Psychiatric A+Ox3, euthymic affect Discharge Data Allergies Allergy/AdvReac Type Severity Reaction Status Date / Time gabapentin Allergy Severe anaphylaxis Verified 10/06/18 02:51 tramadol Allergy Severe ANAPHYLAXIS Verified 10/06/18 02:51 chlorpheniramine Allergy Intermediate SHORTNESS Verified 10/06/18 02:51 OF BREATH guaifenesin Allergy Intermediate SHORTNESS Verified 10/06/18 02:51 OF BREATH metoclopramide AdvReac Intermediate anxiety Verified 10/06/18 02:51 Consultations 10/06/18 02:59 ED Decision to Admit Stat 10/06/18 08:00 Consult Orthopedic Surgery Routine Ordered Studies 10/06/18 23:24 MR lumbar spine wo con Urgent Hospital Course (1) Intractable low back pain: Symptoms has resolved markedly, patient able to ambulate independently in the room, Feels comfortable enough to be discharged home today Presented with intractable low back pain, MRI of lumbar spine shows no significant radiculopathy, appreciate input from orthopedics No surgical intervention needed Recommends conservative management, pain control, PT OT Patient follows with pain management clinic in [place] Has appointment scheduled for tomorrow Stable to be discharged home today Patient is asked not to lift weight more than 10 pounds for the next 1 week Given prescription for Medrol Dosepak PRN Flexeril 5 mg every 8 Hours for muscle spasm (2) Chronic prescription opiate use: Patient follows with pain management clinic, Scheduled for appointment tomorrow (3) Hypothyroidism: Continue levothyroxine CODE STATUS: Full code DVT prophylaxis: Low risk SCD and teds patient is encouraged to ambulate Disposition: Stable to be discharged home today Total Time Total Time Spent Total Time Spent (In Minutes): Approximate 45 minutes Total Time Includes: Examination of the Patient, Discharge Planning and Medication Reconciliation Discharge Plan Discharge Items Patient Disposition: Home - Self-Care Reason For Visit: SEVERE BACK PAIN Discharge Diagnosis: BACK PAIN Discharge Goals: Decrease discomfort, Diagnostic testing and Therapeutic intervention Activity: Resume your previous activity Lifting: No more than 10 pounds Lifting Comment: DO NOT LIFT WEIGHT MORE THAN 10 LB FOR 1 WEEK Non-emergency contact: Primary Care Provider Call non-emergency contact if: you have any medication questions Follow-up/Referrals: Jenny Flores DO [Primary Care Provider] - Diet: Regular Addtl Provider Instructions: FOLLOW UP WITH PAIN MANAGEMENT CLINIC PER APPOINTMENT [facility]OS[facility] FOLLOW UP WITH DR JENNY FLORES IN A WEEK Prescriptions: New cyclobenzaprine 5 mg Tablet 5 mg PO TID PRN (Reason: MUSCLE SPASM) 30 Days Qty: 90 RF: 0 methylprednisolone [Medrol (Abdirashid)] 4 mg tablets,dose pack 4 mg PO UD Qty: 21 RF: 0 Continued rizatriptan [Maxalt] 10 mg tablet 10 mg PO Q2H PRN (Reason: Headache) RF: 0 levothyroxine 300 mcg Tablet 300 mcg PO QAM RF: 0 aspirin [Aspir-81] 81 mg Tablet,Delayed Release (Dr/Ec) 81 mg PO QAM RF: 0 furosemide [Lasix] 40 mg Tablet 40 mg PO QAM PRN (Reason: Edema) RF: 0 nitroglycerin [Nitrostat] 0.4 mg Tablet, Sublingual 0.4 mg Sublingual UD PRN (Reason: Chest Pain) RF: 0 ondansetron HCl [Zofran] 4 mg Tablet 4 - 8 mg PO QID PRN (Reason: Nausea And Vomiting) RF: 0 trazodone 50 mg Tablet 100 mg PO HS RF: 0 prochlorperazine maleate [Compazine] 10 mg tablet 10 mg PO QID PRN (Reason: nausea and vomiting) Qty: 30 RF: 0 morphine 15 mg tablet extended release 15 mg PO TID RF: 0 morphine 15 mg tablet 15 mg PO BID PRN (Reason: Breakthrough Pain) RF: 0 duloxetine 20 mg capsule,delayed release(DR/EC) 20 mg PO QAM RF: 0 Stand-Alone Forms: [facility] Discharge Orders: Discharge Order (Routine); Ordered 10/07/18 Ordered By: Eugenia Bowles Admission Data Admit Date/Time: 10/06/18 04:05 Attending Provider: Eugenia Bowles Admit Provider: Edward Mahoney Primary Care Provider: Jenny Flores Other Providers: Edward Mahoney ; Blue Martinez Gary Service: Surgical Services
[2018-10-07] MEDS ORDERED: methylPREDNISolone 4 MG TAB PO SCH (21:00)
[2018-10-08] MEDS ORDERED: methylPREDNISolone 4 MG TAB PO SCH (07:00)
[2018-10-09] MEDS ORDERED: methylPREDNISolone 4 MG TAB PO SCH (07:00)
[2018-10-10] MEDS ORDERED: methylPREDNISolone 4 MG TAB PO SCH (07:00)
[2018-10-11] MEDS ORDERED: methylPREDNISolone 4 MG TAB PO SCH (07:00)
== END 2018-10-07 18:45 | disposition home or self-care (01) | DRG 552 ==
LOC: ED 22:50 → INTOOBSV 10-06 04:05 → 3N 10-06 04:05 → SUATTDRO 10-06 04:05 → 3N 10-06 04:27

== ENCOUNTER 2019-12-28 22:01 | Observation (INO) ==
[2019-12-28 22:16] LABS: Basophils # (auto) 0.02 K/uL (0-0.2); Basophils % (auto) 0.2 %; Eosinophils # (auto) 0.05 K/uL (0-0.5); Eosinophils % (auto) 0.4 %; Hematocrit (blood only) 47.3 % (37-47); Hemoglobin 16.1 g/dL (12.0-16.0); Immature Granulocytes # (auto) 0.02 K/uL (0.00-0.02); Immature Granulocytes % (auto) 0.2 %; Lymphocytes # (auto) 2.72 K/uL (1.2-3.4); Lymphocytes % (auto) 21.5 %; Mean Corpuscular Hemoglobin 30.2 pg (25-34); Mean Corpuscular Volume 88.7 fL (80-100); Mean Platelet Volume 10.8 fL (7.4-10.4); Monocytes # (auto) 0.49 K/uL (0.11-0.59); Monocytes % (auto) 3.9 %; Neutrophils # (auto) 9.35 K/uL (1.4-6.5); Neutrophils % (auto) 73.8 %; Platelet Count 284 K/uL (130-400); RDW Coefficient of Variation 13.1 % (11.5-14.5); RDW Standard Deviation 42.7 fL (36.4-46.3); Red Blood Count 5.33 M/uL (4.2-5.4); White Blood Count 12.65 K/uL (4.8-10.8)
[2019-12-28] MEDS ORDERED: HYDROmorphone INJ 1 MG/ML SYRINGE IV STA (22:21)
[2019-12-28] MEDS ORDERED: ONDANSETRON INJ 2 MG/ML 2 ML VIAL IV STA (22:22)
[2019-12-28 22:33] LABS: Alanine Aminotransferase 18 U/L (12-78); Albumin Level 3.7 gm/dl (3.4-5.0); Aspartate Aminotransferase 8 U/L (15-37); BUN Creatinine Ratio 8.7 (10-20); Blood Urea Nitrogen 9 mg/dl (7-18); Calcium 10.6 mg/dl (8.5-10.1); Carbon Dioxide 28 mmol/L (21-32); Chloride 106 mmol/L (98-107); Creatinine Clr Calc Pharmacy 93.5 ml/min; Est GFR (African American) 76.2; Est GFR (Non-African American) 65.8; Glucose 106 mg/dl (70-99); Lipase 150 U/L (73-393); Partial Thromboplastin Time 29.2 Seconds (21.0-31.0); Potassium 3.6 mmol/L (3.5-5.1); Prothrombin Time 10.5 Seconds (9.0-12.0); Sodium 140 mmol/L (136-145)
[2019-12-28 22:36] LABS: D Dimer 730 ug/L FEU (0-500)
[2019-12-28 22:38] LABS: Albumin Globulin Ratio 0.8 (0.9-2); Alkaline Phosphatase 156 U/L (45-117); Bilirubin,Total 0.5 mg/dl (0.2-1); Globulin 4.7 gm/dl (2.5-4.0); Total Protein 8.4 gm/dl (6.4-8.2); Troponin I < 0.015 ng/ml (0-0.045)
[2019-12-28] MEDS ORDERED: PROMETHAZINE 25 MG/51 ML BAG IV STA (22:40)
[2019-12-28] MEDS ORDERED: MoRPHine SULFATE CR 15 MG TABCR PO STA (23:44)
[2019-12-28] MEDS ORDERED: MoRPHine SULFATE IR 15 MG TAB (IMMEDIATE RELEASE) PO STA (23:44)
[2019-12-28] MEDS ORDERED: TRAZODONE HCL 50 MG TAB PO ONE (23:44)
[2019-12-29] MEDS ORDERED: RIZATRIPTAN BENZOATE 10 MG TAB PO PRN (00:35)
[2019-12-29] MEDS ORDERED: FUROSEMIDE 40 MG TAB PO PRN (00:35)
[2019-12-29] MEDS ORDERED: PROCHLORPERAZINE MALEATE 10 MG TAB PO PRN (00:35)
[2019-12-29] MEDS ORDERED: ONDANSETRON INJ 2 MG/ML 2 ML VIAL IV PRN (00:35)
[2019-12-29] MEDS ORDERED: ACETAMINOPHEN 325 MG TAB PO PRN (00:35)
[2019-12-29] MEDS ORDERED: NITROGLYCERIN SL 0.4 MG/TAB TAB SL PRN (00:35)
--- NOTE | 2019-12-29 01:29 | History and Physical Report ---
DATE OF ADMISSION: 12/28/2019 CHIEF COMPLAINT: Chest pain. HISTORY OF PRESENT ILLNESS: This 49-year-old female with past medical history significant for hypothyroidism, irritable bowel syndrome, fibromyalgia, chronic back pain, bulging lumbar disc, history of migraine, chronic pain syndrome, opioid dependence, tobacco use disorder, generalized anxiety disorder, presents with chest pain. The patient is having chest pain since today morning on and off. She came to the ER early in the morning. At that time, her workup was negative with EKG and CTA of the chest was unremarkable and she was sent home. The patient again after going home at around 7:30 p.m. she again started to have chest pain, 9/10 in severity, in the center of the chest radiating to his shoulder and neck and to the back, pressure like feeling, somebody sitting on her chest and feeling short of breath, nauseous and dizzy and she was profusely sweating. She has some nitro at home which she took, but she thinks the medications is old and did not help much and in the ambulance, she was given 2 nitro paste that seem to help little bit and she got some Dilaudid in the ER, which now improved her pain. Now she sates the pain is almost resolved. Currently resting comfortably and hemodynamically stable. The patient has episode in 2014 when she was in the hospital, intubated and thought to be from the hypothyroidism versus drug overdose. At that time, she was found to have cardiomyopathy thought to be stress related, and as per the cardiology outpatient notes, few months later followup dobutamine stress test seemed to show the cardiomyopathy improved. The patient thinks that she might have also had small episode regarding heart couple of times. She has some headache from the nitro. Denies any blurred vision, no earache, no runny nose, no sore throat, no dysphagia, no abdominal pain. Normal bowel and bladder movements. No blood in stool or black stools, no hematuria. No swelling in the legs, no rash. Otherwise, she ambulates and climbs steps okay. ALLERGIES: NEURONTIN, CHLORPHENIRAMINE, GUAIFENESIN, CORTICOSTEROIDS, REGLAN, SULFA ANTIBIOTICS, TDAP, TRAMADOL, ASPIRIN, SYMPATHOMIMETICS. PAST MEDICAL HISTORY: As mentioned above. PAST SURGICAL HISTORY: Right breast lymph node biopsy, x2, colonoscopy with biopsy, cystoscopy, EGD with biopsy, lumbar spine injection, laparoscopic appendectomy, ligation of oviducts, partial hysterectomy, cholecystectomy, video capsule endoscopy. MEDICATIONS: The patient is on aspirin 81 mg p.o. daily, duloxetine 20 mg p.o. a.m., Lasix 40 mg p.o. a.m. p.r.n., levothyroxine 250 mcg p.o. a.m., morphine 50 mg p.o. t.i.d., MS Contin 50 mg p.o. t.i.d., nitroglycerin 0.4 mg sublingual p.r.n., Zofran 4-8 mg p.o. q.i.d. p.r.n., Compazine 10 mg p.o. q.i.d. p.r.n., rizatriptan 10 mg p.o. q. 2 hours p.r.n., trazodone 50 mg p.o. at bedtime. FAMILY HISTORY: Significant for mother had diabetes, hypertension, thyroid disorder. Father has hypertension. Maternal grandmother had breast cancer, ovarian, uterine cancer. Paternal grandfather had prostate cancer. SOCIAL HISTORY: , smokes quarter pack a day for last 20 years. Alcohol rarely. No drug use. REVIEW OF SYMPTOMS: As per HPI. Rest of review of symptoms negative. PHYSICAL EXAMINATION: GENERAL: The patient is of moderate build, not in acute distress. VITAL SIGNS: Temperature 37, pulse 84, respiratory rate 16, blood pressure 140/84, oxygen 94% on room air. HEENT: Pupils equal, round, reactive to light. Atraumatic. NECK: No JVD, no neck masses. CARDIOVASCULAR: S1, S2 heard, regular rate and rhythm, no murmur, no gallop. RESPIRATORY SYSTEM: Normal AP diameter. No accessory muscle use. No wheezing, no crackles. ABDOMEN: Soft, bowel sounds present, nontender. No distention. CENTRAL NERVOUS SYSTEM: Cranial nerves II-XII grossly intact. Nonfocal. EXTREMITIES: No edema, no erythema. LABORATORY DATA: WBC 12.6, hemoglobin 16.1, hematocrit 47.3, platelets 284. PT 10.5, INR 1, APTT 29.2. D-dimer 730. Sodium 140, potassium 3.6, chloride 106, bicarbonate 28, BUN 9, creatinine 1.01. Serum glucose 106, calcium 10.6, total bilirubin 0.5, AST 8, ALT 18, alkaline phosphatase 156, troponin I less than 0.015. Lipase 150. IMAGING: Chest x-ray, no acute findings seen. EKG: Normal sinus rhythm, at a rate of 81, no significant change was found. ASSESSMENT AND PLAN: This is a 49-year-old female who presents with chest pain. 1. Chest pain rule out acute coronary syndrome: Initial workup is negative and she was in the ER early in the morning, at that time CTA of the chest was unremarkable, though D-dimer is elevated slightly now. The patient seem to have history of stress cardiomyopathy in the past when she was in the ICU intubated from drug overdose vs hypothyroidism. Few months later on dobutamine stress echo cardiomyopathy seemed resoled. We will monitor in the [facility] tele, serial enzymes, n.p.o., echo in a.m. and consult cardiology for further recommendations. Repeat EKG in a.m. 2. Fibromyalgia, bulging lumbar disc, chronic pain syndrome: Continue her home pain medications. 3. Migraine: Currently on rizatriptan p.r.n. 4. Hypothyroidism: On Synthroid. We will follow the TSH levels. 5. Tobacco use disorder: t counseling. 6. Generalized anxiety disorder: On duloxetine and Cymbalta. 7. Deep venous thrombosis prophylaxis: Sequential compression devices for now. 8. Disposition: Close monitoring and observe in tele floor. Level 1 full code. Expect discharge home and follow with family doctor. TIFFANI
--- NOTE | 2019-12-29 01:39 | Emergency Department Note ---
Impression & Plan Substernal chest pain, Nausea ED Provider Note INFORMANT: [Patient] ED PROVIDER(S): Gerry Holland MD CHIEF COMPLAINT: Chest pain PLAN: Disposition: Admitted Condition: [Good] MEDICAL DECISION MAKING: Patient presented back to emergency department with worsening chest pain. She did have some relief with nitroglycerin. She was given a dose of IV Dilaudid and Phenergan as she was very nauseated. ECG did not show any ischemia. Her CBC and chemistry panel was unremarkable. Slight leukocytosis however this was present earlier today. She did have a d-dimer performed and this was mildly elevated however record review indicated she had 1 done earlier today and that prompted CT imaging of her chest which was negative for pulmonary embolism. The patient has a cardiac history. Despite having a thorough work-up earlier has developed worsening chest symptoms. I discussed further management in the hospital and the patient was in agreement. [facility] and he evaluated the patient in the ER for further management. Triage Nursing notes reviewed and agree them. [Prior medical records reviewed] visit from today including laboratory results and CT study reviewed. Vital Signs: reviewed and remarkable for mild hypertension Differential diagnosis: Cardiac ischemia, aortic dissection, pulmonary embolism, pneumothorax, pneumonia, pericarditis, myocarditis, esophageal rupture, GERD, cholecystitis, pancreatitis, musculoskeletal, as well as other pathologies. Diagnostics interpreted by me: ECG:Rate: 81 Rhythm:Normal sinus [place]:Normal QRS:Normal ST segements:No elevation or depression Other:No PACs or PVCs Cardiac Monitoring: Cardiac monitoring ordered by me: The patient was placed on continuous cardiac monitoring and observed. It revealed a normal sinus rhythm at 69 beats per minute without ectopy or evidence of dysrhythmia. Imaging studies: Chest x-ray. Findings: A chest x-ray was performed and revealed no pneumothorax, effusion, infiltrate, pulmonary edema, free air under the diaphragm, or wide mediastinum. Impression: No acute disease. [facility]: The patient is a 49 year old female who presents to the Emergency Room with complaints of recurrent chest pain. This started earlier today, resolved and is now worsening. The patient also notes the following associated symptoms, shortness of breath and nausea. The patient has tried nitroglycerin for relieving factors. Current pain is rated as 5/10. Patient was here earlier today and had no significant findings on her EKG and troponin measurements. Pt denies LOC, headache, fevers, chills, diaphoresis, visual changes, neck pain, breathing difficulties, vomiting, abdominal pain, back pain, melena, hematochezia, urinary symptoms, numbness, weakness, lymphadenopathy, rash, or other complaints. ROS: See above HPI for pertinent positives & negatives. A total of [10] systems reviewed and were otherwise negative. PAST MEDICAL HISTORY:[See Below] IBS, migraines, [place] PAST SURGICAL HISTORY:[See Below] FAMILY HISTORY:[See Below] SOCIAL HISTORY:[See Below] smokes HOME MEDICATIONS:[See Below] ALLERGIES:[See Below] VITALS:[See Below] PHYSICAL EXAMINATION: GENERAL: Awake, alert, uncomfortable-appearing, in no distress HENT: Normocephalic, atraumatic. Oropharynx unremarkable. EYES: Normal conjunctiva. Sclera non-icteric. NECK: Inspection normal. Non-tender. Supple. No nuchal rigidity. FROM. No masses. RESPIRATORY: Clear to auscultation. No wheezes. No rales. Normal respiratory effort. CARDIAC: Normal rate. Normal rhythm. No murmurs. No rubs. Extremities warm and well perfused. Pulses equal. No JVD. GI: Soft, non-distended. No tenderness to palpation. No rebound or guarding. No masses. RECTAL: Deferred. MUSCULOSKELETAL: Atraumatic. Chest examination reveals no tenderness. The back is symmetrical on inspection without obvious abnormality. There is no CVA tenderness to palpation. No joint edema. LOWER EXTREMITIES: Calves are equal size bilaterally and non-tender. No edema. No discoloration. NEURO: Normal sensorium. No sensory or motor deficits noted. SKIN: No rash or jaundice noted. ED COURSE: [Critical Care:] [None] Gerry Holland MD Past Med/Surg History Social History Smoking Status: Current every day smoker Tobacco Type: Cigarettes Cigarettes Per Day: 10; Second Hand Exposure: No; Hx Alcohol Use: No Hx Substance Use: No Preferred Language: Greek Communication Ability: Effective Visual Impairment: Partially Limited Experimental Welder Required: No Beliefs That Will Affect Care: None marital status: Current Living Situation: Spouse and Family Feels Safe at Home: Yes Allergies Allergies Allergy/AdvReac Type Severity Reaction Status Date / Time gabapentin Allergy Severe anaphylaxis Verified 12/28/19 15:23 tramadol Allergy Severe ANAPHYLAXIS Verified 12/28/19 15:23 chlorpheniramine Allergy Intermediate SHORTNESS Verified 12/28/19 15:23 OF BREATH guaifenesin Allergy Intermediate SHORTNESS Verified 12/28/19 15:23 OF BREATH metoclopramide AdvReac Intermediate anxiety Verified 12/28/19 15:23 Home Meds Home Medications Medication Instructions Recorded Confirmed rizatriptan 10 mg tablet 10 mg PO Q2H PRN 03/15/18 12/28/19 aspirin [Aspir-81] 81 mg PO QAM 03/17/18 12/28/19 furosemide [Lasix] 40 mg PO QAM PRN 03/17/18 12/28/19 nitroglycerin [Nitrostat] 0.4 mg SUBLINGUAL DIRECTED PRN 03/17/18 12/28/19 ondansetron HCl [Zofran] 4 - 8 mg PO QID PRN 03/17/18 12/28/19 trazodone 50 - 100 mg PO HS 03/18/18 12/28/19 duloxetine 20 mg PO QAM 10/06/18 12/28/19 morphine 15 mg PO TID 10/06/18 12/28/19 levothyroxine 250 mcg PO QAM 12/28/19 12/28/19 morphine 15 mg PO TID 12/28/19 12/28/19 prochlorperazine maleate 10 mg PO QID PRN 12/28/19 12/28/19 [Compazine] promethazine 25 mg PA Q6H PRN 12/28/19 12/28/19 Results & Data (ED) Vital Signs Vital Signs - 24 hr 12/28/19 22:01 12/28/19 22:31 12/28/19 22:49 Temperature 37.1 C Temperature Source Oral Pulse Rate 87 80 Pulse Rate from SpO2 Sensor Respiratory Rate 18 12 Respiratory Depth Normal Blood Pressure 139/99 173/90 H Blood Pressure Mean 112 102 Pulse Oximetry 93 97 Oxygen Delivery Method Room Air Sepsis Recent Fever Within 48 Hours No Sepsis New/Unexplained Change in Mental Status No Sepsis Action Taken by Nursing No Action Required 12/28/19 23:00 12/28/19 23:30 Temperature Temperature Source Pulse Rate 92 H 84 Pulse Rate from SpO2 Sensor 93 H 86 Respiratory Rate 21 16 Respiratory Depth Blood Pressure 132/97 140/84 Blood Pressure Mean 101 95 Pulse Oximetry 95 94 Oxygen Delivery Method Sepsis Recent Fever Within 48 Hours Sepsis New/Unexplained Change in Mental Status Sepsis Action Taken by Nursing Laboratory Data Result diagrams: 12/28/19 21:45 12/28/19 21:45 Lab Results 12/28/19 12/28/19 12/28/19 Range/Units 21:45 21:45 21:45 WBC 12.65 H (4.8-10.8) K/uL RBC 5.33 (4.2-5.4) M/uL Hgb 16.1 H (12.0-16.0) g/dL Hct 47.3 H (37-47) % MCV 88.7 (80-100) fL MCH 30.2 (25-34) pg MCHC 34.0 (32-36) g/dL RDW Std Deviation 42.7 (36.4-46.3) fL RDW Coeff of Roro 13.1 (11.5-14.5) % Plt Count 284 (130-400) K/uL MPV 10.8 H (7.4-10.4) fL Immature Gran % (Auto) 0.2 % Neut % (Auto) 73.8 % Lymph % (Auto) 21.5 % [place] % (Auto) 3.9 % Eos % (Auto) 0.4 % Baso % (Auto) 0.2 % Neut # (Auto) 9.35 H (1.4-6.5) K/uL Lymph # (Auto) 2.72 (1.2-3.4) K/uL [place] # (Auto) 0.49 (0.11-0.59) K/uL Eos # (Auto) 0.05 (0-0.5) K/uL Baso # (Auto) 0.02 (0-0.2) K/uL Immature Gran # (Auto) 0.02 (0.00-0.02) K/uL PT 10.5 (9.0-12.0) Seconds INR 1.0 (0.9-1.1) APTT 29.2 (21.0-31.0) Seconds PTT Ratio 1.0 D-Dimer 730 H* (0-500) ug/L FEU Sodium 140 (136-145) mmol/L Potassium 3.6 (3.5-5.1) mmol/L Chloride 106 (98-107) mmol/L Carbon Dioxide 28 (21-32) mmol/L Anion Gap 6.0 (3-11) BUN 9 (7-18) mg/dl Creatinine 1.01 (0.6-1.2) mg/dl Est Cr Clr Drug Dosing 93.5 ml/min Est GFR ( Amer) 76.2 Est GFR (Non-Af Amer) 65.8 BUN/Creatinine Ratio 8.7 L (10-20) Glucose 106 H (70-99) mg/dl Calcium 10.6 H (8.5-10.1) mg/dl Total Bilirubin 0.5 (0.2-1) mg/dl AST 8 L (15-37) U/L ALT 18 (12-78) U/L Alkaline Phosphatase 156 H (45-117) U/L Troponin I < 0.015 (0-0.045) ng/ml Total Protein 8.4 H (6.4-8.2) gm/dl Albumin 3.7 (3.4-5.0) gm/dl Globulin 4.7 H (2.5-4.0) gm/dl Albumin/Globulin Ratio 0.8 L (0.9-2) Lipase 150 (73-393) U/L Administered Medications Discontinued Medications Hydromorphone HCl (Dilaudid) 1 mg IV NOW STA Stop: 12/28/19 22:22 Last Admin: 12/28/19 22:27 Dose: 1 mg Documented by: [id number] Promethazine HCl (Phenergan) 25 mg in 51 mls @ 204 mls/hr IV NOW STA Stop: 12/28/19 22:54 Last Infusion: 12/28/19 23:00 Dose: 0 mls/hr Documented by: [id number] Admin: 12/28/19 22:45 Dose: 204 mls/hr Documented by: [id number] Morphine Sulfate (Ms Contin) 15 mg PO NOW STA Stop: 12/28/19 23:45 Last Admin: 12/29/19 00:46 Dose: 15 mg Documented by: [id number] Morphine Sulfate (Morphine Sulfate Ir) 15 mg PO NOW STA Stop: 12/28/19 23:45 Last Admin: 12/29/19 00:11 Dose: 15 mg Documented by: [id number] Ondansetron HCl (Zofran) 4 mg IV NOW STA Stop: 12/28/19 22:23 Last Admin: 12/28/19 22:27 Dose: 4 mg Documented by: [id number] Trazodone HCl (Desyrel) 50 mg PO NOW ONE Stop: 12/28/19 23:45 Last Admin: 12/29/19 00:46 Dose: 50 mg Documented by: [id number] Discharge Plan Visit Data *Final* Discharge Date/Time: 12/29/19 00:18 Chief Complaint: Chest Pain Stated Complaint: CHEST PAIN, SOB ED Provider: Gerry Holland Discharge Problem: Substernal chest pain, Nausea Patient Disposition: Admitted As Inpatient Discharge Instructions Interventions: ED Discharge Assessment Last Done: 12/29/19 00:18
[2019-12-29 05:41] LABS: Basophils # (auto) 0.02 K/uL (0-0.2); Basophils % (auto) 0.2 %; Eosinophils % (auto) 0.9 %; Hematocrit (blood only) 42.5 % (37-47); Hemoglobin 14.2 g/dL (12.0-16.0); Immature Granulocytes # (auto) 0.02 K/uL (0.00-0.02); Immature Granulocytes % (auto) 0.2 %; Lymphocytes # (auto) 3.76 K/uL (1.2-3.4); Lymphocytes % (auto) 35.2 %; Mean Corpuscular Hemoglobin 29.8 pg (25-34); Mean Corpuscular Hgb Conc 33.4 g/dL (32-36); Mean Corpuscular Volume 89.1 fL (80-100); Mean Platelet Volume 10.7 fL (7.4-10.4); Monocytes # (auto) 0.58 K/uL (0.11-0.59); Monocytes % (auto) 5.4 %; Neutrophils % (auto) 58.1 %; Platelet Count 237 K/uL (130-400); RDW Coefficient of Variation 13.1 % (11.5-14.5); RDW Standard Deviation 43.1 fL (36.4-46.3); Red Blood Count 4.77 M/uL (4.2-5.4); White Blood Count 10.68 K/uL (4.8-10.8)
[2019-12-29 05:59] LABS: BUN Creatinine Ratio 12.7 (10-20); Blood Urea Nitrogen 11 mg/dl (7-18); Calcium 9.7 mg/dl (8.5-10.1); Carbon Dioxide 30 mmol/L (21-32); Chloride 110 mmol/L (98-107); Creatinine Clr Calc Pharmacy 109.4 ml/min; Est GFR (African American) 93.9; Glucose 94 mg/dl (70-99); Magnesium 2.1 mg/dl (1.8-2.4); Potassium 3.7 mmol/L (3.5-5.1); Sodium 144 mmol/L (136-145)
[2019-12-29 06:04] LABS: Chol HDL Ratio 4; Cholesterol 172 mg/dl (0-200); HDL Cholesterol 40 mg/dl; LDL Cholesterol Calculated 100 mg/dl; Triglycerides 158 mg/dl (0-150); Troponin I < 0.015 ng/ml (0-0.045); VLDL Cholesterol 32 mg/dl
[2019-12-29] MEDS ORDERED: LEVOTHYROXINE SODIUM 125 MCG TABLET PO SCH (06:30)
[2019-12-29] MEDS: MoRPHine SULFATE CR 15 MG TABCR PO SCH ×2 (08:44→14:33)
[2019-12-29] MEDS: MoRPHine SULFATE IR 15 MG TAB (IMMEDIATE RELEASE) PO SCH ×2 (08:44→14:33)
--- NOTE | 2019-12-29 08:49 | XRay Report ---
SINGLE VIEW CHEST CLINICAL HISTORY: Atypical chest pain. FINDINGS: An AP, portable, upright chest radiograph is compared to chest x-ray and chest CT performed earlier the same day 12/28/2019. The examination is degraded by portable technique and patient rotati on. The cardiomediastinal silhouette is unremarkable. The lungs and pleural spaces are clear. No pn eumothorax is seen. The bony thorax is grossly intact. IMPRESSION: No active disease in the chest and no change from today's earlier examinations. ACT 112: Negative or not required by law. Electronically signed by: Elvin Stephen M.D. 12/29/2019 8:47 AM
[2019-12-29] MEDS ORDERED: DULOXETINE HCL 20 MG CAP PO SCH (09:00)
[2019-12-29] MEDS ORDERED: ASPIRIN 81 MG ECTAB PO SCH (09:00)
--- NOTE | 2019-12-29 11:48 | Cardiology Consultation ---
Date of Consultation December 29, 2019 Assessment & Plan (1) Chest pain: (2) Intractable low back pain: (3) Chronic pain disorder: This patient has had a long history of chronic pain. Her chest pain is atypical for cardiac angina as it does not occur with activity and is not associated with shortness of breath. Despite having hours of chest discomfort her EKG shows no acute changes that would suggest ischemia and her cardiac markers are negative. At this time I would not recommend any additional cardiac testing. History of Present Illness Attending Physician: Roz Figueredo MD History of Present Illness This is a 49-year-old female with a history of chronic pain, on and off pain medication including a previous methadone program. In 2014 she was admitted to the hospital acutely ill requiring intubation. She had a prolonged hospital stay. It was uncertain as to whether her illness was caused by hypothyroidism or possible drug overdose. During that admission she had evidence of a cardiomyopathy, perhaps stress related. Eventually she made a full recovery including return of her cardiac function. Several months after that admission she had a dobutamine stress echocardiogram that was negative for ischemia that revealed normal LV function. She was then lost to follow-up. She continues to have chronic multiple medical problems including but not limited to chronic pain. She was admitted with atypical chest pain. She at first was seen in emergency department, evaluated and sent home and then returned later that day with continued discomfort and was admitted. Despite having prolonged episodes of chest pain her cardiac markers have been negative and her EKG has been within normal limits. She is on continuous analgesics with a scheduled dose of morphine. This morning she had a little chest discomfort and was given sublingual nitroglycerin along with her scheduled morphine dose and her discomfort went away. She denies shortness of breath. She has been in a sinus mechanism on the telemetry. Allergies Allergy/AdvReac Type Severity Reaction Status Date / Time gabapentin Allergy Severe anaphylaxis Verified 12/28/19 15:23 tramadol Allergy Severe ANAPHYLAXIS Verified 12/28/19 15:23 chlorpheniramine Allergy Intermediate SHORTNESS Verified 12/28/19 15:23 OF BREATH guaifenesin Allergy Intermediate SHORTNESS Verified 12/28/19 15:23 OF BREATH metoclopramide AdvReac Intermediate anxiety Verified 12/28/19 15:23 Home Medications Home Medications Medication Instructions Recorded Confirmed Type rizatriptan 10 mg tablet 10 mg PO Q2H PRN 03/15/18 12/28/19 History aspirin [Aspir-81] 81 mg PO QAM 03/17/18 12/28/19 History furosemide [Lasix] 40 mg PO QAM PRN 03/17/18 12/28/19 History nitroglycerin [Nitrostat] 0.4 mg SUBLINGUAL DIRECTED PRN 03/17/18 12/28/19 History ondansetron HCl [Zofran] 4 - 8 mg PO QID PRN 03/17/18 12/28/19 History trazodone 50 - 100 mg PO HS 03/18/18 12/28/19 History duloxetine 20 mg PO QAM 10/06/18 12/28/19 History morphine 15 mg PO TID 10/06/18 12/28/19 History levothyroxine 250 mcg PO QAM 12/28/19 12/28/19 History morphine 15 mg PO TID 12/28/19 12/28/19 History prochlorperazine maleate 10 mg PO QID PRN 12/28/19 12/28/19 History [Compazine] promethazine 25 mg [place] Q6H PRN 12/28/19 12/28/19 History Patient History Medical History Anxiety (Chronic) Atelectasis Cardiomyopathy (Resolved) 2014 - thought to be stress induced, reported normal dobutamine stress and echo after Chronic back pain (Chronic) Chronic pain syndrome (Chronic) Depression (Chronic) Fibromyalgia (Chronic) H/O traumatic brain injury (Chronic) Hypokalemia Hypothyroidism (Chronic Unknown) IBS (irritable bowel syndrome) (Chronic) Migraines (Chronic) Opiate dependence (Chronic) Tobacco abuse (Chronic) Surgical History Bilateral tubal ligation (Chronic Unknown) section (Chronic Unknown) H/O colonoscopy (Chronic) "2006 path normal" H/O cystoscopy (Chronic) H/O esophagogastroduodenoscopy (Chronic) "2006 path normal" Hx of appendectomy Hx of cholecystectomy Hx of hysterectomy S/P lymph node biopsy (Chronic) "deep cervical inflammatory node 2007" Family History Other Diabetes Hypertension Thyroid disorder Social History Smoking Status: Current every day smoker Tobacco Type: Cigarettes Cigarettes Per Day: 10; Second Hand Exposure: No; Hx Alcohol Use: No Hx Substance Use: No Preferred Language: Urdu Communication Ability: Effective Visual Impairment: Partially Limited 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 Physical Exam Physical Exam: General: no acute distress and stated age Head: normocephalic, no masses, lesions, tenderness or abnormalities Eyes: conjunctiva are pink and non-injected, sclera clear Neck: supple, no adenopathy, no bruits, normal jugular venous pulse, no hepatojugular reflux Chest: normal shape and normal respiratory effort Lungs: clear to auscultation and percussion Cardiac Exam: - regular rate & rhythm, no murmurs gallops or rubs - normal S1, normal S2 Pulses: 2(+) throughout Abdomen: abdomen soft, non-tender, no abnormal masses and no hepatosplenomegaly Musculoskeletal: no gait disturbance, no joint inflammation, no deforming arthritis Extremities: no edema and no cyanosis Neuro: grossly normal exam Results & Data ([facility]) Vital Signs (Past 12 Hours) Vital Signs Temp Pulse Pulse Pulse Resp BP BP 12/29/19 11:32 36.6 C 66 18 104/68 12/29/19 09:00 58 L 12/29/19 07:25 36.9 C 67 16 120/61 12/29/19 04:44 66 112/71 12/29/19 02:35 36.8 C 77 18 101/61 12/29/19 01:22 65 12/29/19 01:11 37.0 C 72 16 144/96 H 12/29/19 00:00 71 21 142/88 H Pulse Ox 12/29/19 11:32 91 12/29/19 09:00 12/29/19 07:25 92 12/29/19 04:44 12/29/19 02:35 95 12/29/19 01:22 12/29/19 01:11 95 12/29/19 00:00 95 Laboratory Results Laboratory Results - last 24 hr 12/28/19 12/28/19 12/28/19 21:45 21:45 21:45 WBC 12.65 H RBC 5.33 Hgb 16.1 H Hct 47.3 H MCV 88.7 MCH 30.2 MCHC 34.0 RDW Std Deviation 42.7 RDW Coeff of Roro 13.1 Plt Count 284 MPV 10.8 H Immature Gran % (Auto) 0.2 Neut % (Auto) 73.8 Lymph % (Auto) 21.5 Crowley % (Auto) 3.9 Eos % (Auto) 0.4 Baso % (Auto) 0.2 Neut # (Auto) 9.35 H Lymph # (Auto) 2.72 Crowley # (Auto) 0.49 Eos # (Auto) 0.05 Baso # (Auto) 0.02 Immature Gran # (Auto) 0.02 PT 10.5 INR 1.0 APTT 29.2 PTT Ratio 1.0 D-Dimer 730 H* Sodium 140 Potassium 3.6 Chloride 106 Carbon Dioxide 28 Anion Gap 6.0 BUN 9 Creatinine 1.01 Est Cr Clr Drug Dosing 93.5 Est GFR ( Amer) 76.2 Est GFR (Non-Af Amer) 65.8 BUN/Creatinine Ratio 8.7 L Glucose 106 H Calcium 10.6 H Magnesium Total Bilirubin 0.5 AST 8 L ALT 18 Alkaline Phosphatase 156 H Troponin I < 0.015 Total Protein 8.4 H Albumin 3.7 Globulin 4.7 H Albumin/Globulin Ratio 0.8 L Triglycerides Cholesterol LDL Cholesterol, Calc VLDL Cholesterol, Calc HDL Cholesterol Cholesterol/HDL Ratio Lipase 150 12/29/19 12/29/19 12/29/19 05:19 05:19 11:17 WBC 10.68 RBC 4.77 Hgb 14.2 Hct 42.5 MCV 89.1 MCH 29.8 MCHC 33.4 RDW Std Deviation 43.1 RDW Coeff of Roro 13.1 Plt Count 237 MPV 10.7 H Immature Gran % (Auto) 0.2 Neut % (Auto) 58.1 Lymph % (Auto) 35.2 Crowley % (Auto) 5.4 Eos % (Auto) 0.9 Baso % (Auto) 0.2 Neut # (Auto) 6.20 Lymph # (Auto) 3.76 H Crowley # (Auto) 0.58 Eos # (Auto) 0.10 Baso # (Auto) 0.02 Immature Gran # (Auto) 0.02 PT INR APTT PTT Ratio D-Dimer Sodium 144 Potassium 3.7 Chloride 110 H Carbon Dioxide 30 Anion Gap 4.0 BUN 11 Creatinine 0.85 Est Cr Clr Drug Dosing 109.4 Est GFR ( Amer) 93.9 Est GFR (Non-Af Amer) 81.0 BUN/Creatinine Ratio 12.7 Glucose 94 Calcium 9.7 Magnesium 2.1 Total Bilirubin AST ALT Alkaline Phosphatase Troponin I < 0.015 Pending Total Protein Albumin Globulin Albumin/Globulin Ratio Triglycerides 158 H Cholesterol 172 LDL Cholesterol, Calc 100 VLDL Cholesterol, Calc 32 HDL Cholesterol 40 Cholesterol/HDL Ratio 4 Lipase Medications Administered Current Inpatient Medications Acetaminophen (Tylenol) 650 mg PO Q4H PRN PRN Reason: Pain or Fever Stop: 01/28/20 00:34 Aspirin (Ecotrin Ectab) 81 mg PO QAM [facility] Stop: 01/28/20 08:59 Last Admin: 12/29/19 08:44 Dose: 81 mg Documented by: Duloxetine HCl (Cymbalta) 20 mg PO QAM [facility] Stop: 01/28/20 08:59 Last Admin: 12/29/19 08:44 Dose: 20 mg Documented by: Furosemide (Lasix) 40 mg PO QAM PRN PRN Reason: Edema Stop: 01/28/20 00:34 Levothyroxine Sodium (Synthroid) 250 mcg PO DAILYBB [facility] Stop: 01/28/20 06:29 Last Admin: 12/29/19 06:30 Dose: 250 mcg Documented by: Morphine Sulfate (Morphine Sulfate Ir) 15 mg PO TID [facility] Stop: 01/12/20 08:59 Last Admin: 12/29/19 08:44 Dose: 15 mg Documented by: Morphine Sulfate (Ms Contin) 15 mg PO TID [facility] Stop: 01/12/20 08:59 Last Admin: 12/29/19 08:44 Dose: 15 mg Documented by: Nitroglycerin (Nitrostat) 0.4 mg SL UD PRN PRN Reason: Chest Pain Stop: 01/28/20 00:34 Last Admin: 12/29/19 04:43 Dose: 0.4 mg Documented by: Ondansetron HCl (Zofran) 4 mg IV Q6H PRN PRN Reason: Nausea Stop: 01/28/20 00:34 Prochlorperazine (Compazine) 10 mg PO QID PRN PRN Reason: Nausea And Vomiting Stop: 01/28/20 00:34 Rizatriptan Benzoate (Maxalt) 10 mg PO Q2H PRN PRN Reason: Headache Stop: 01/28/20 00:34 Trazodone HCl (Desyrel) 50 mg PO HS [facility] Stop: 01/28/20 20:59 (1) Chest pain Chest pain type: unspecified Qualified Code(s): R07.9 - Chest pain, unspecified
--- NOTE | 2019-12-29 13:44 | Hospitalist Progress Note ---
Date of Service December 29, 2019 Assessment & Plan (1) Substernal chest pain: Pain suggestive of angina with history of fibromyalgia and remote history of cardiomyopathy with negative stress echo thereafter Serial cardiac troponins and EKGs are unremarkable for any ACS CT of the chest did not show any thoracic abnormality and/or pulmonary embolism Appreciate cardiology input and recommendation-no further cardiac testing We will likely send the patient home this afternoon (2) Cardiomyopathy: No acute issue (3) Fibromyalgia: No acute findings (4) Hypothyroidism: Continue supplemental medications CODE STATUS Full Admission and Anticipated Discharge Date Admission Date: December 28, 2019 Subjective The patient was seen and examined in medical telemetry unit She was admitted with chest pain in the precordial area radiation to the back and lasted for about half an hour Her pain seems to be controlled since this morning Denies any other acute symptoms Review of Systems Review of Systems: All systems reviewed and are unremarkable except as noted below Cardiovascular: + chest pain Physical Exam Physical Exam: Lying in bed comfortably Constitutional: well developed, well nourished and + obese; no acute distress and not ill appearing Eyes: PERRL, conjunctivae normal, anicteric sclerae ENMT: external ear and nose normal, oropharynx normal Neck: trachea midline, no thyromegaly Respiratory: normal respiratory effort; no respiratory distress Auscultation: lungs clear to auscultation bilaterally Cardiovascular: Rate/Rhythm: regular rate and regular rhythm Heart Sounds: no murmur Gastrointestinal (Abdomen): Inspection/Auscultation: abdomen normal to inspection and normal bowel sounds Percussion/Palpation: abdomen soft; abdomen not rigid Musculoskeletal: No acute arthritis involving any joints Neurologic: moves all extremities; no focal motor deficits Alert awake and oriented x3 Results & Data Results & Data ([facility]) Vital Signs (Past 12 Hours) Vital Signs Temp Pulse Pulse Resp BP Pulse Ox 12/29/19 11:32 36.6 C 66 18 104/68 91 12/29/19 09:00 58 L 12/29/19 07:25 36.9 C 67 16 120/61 92 12/29/19 04:44 66 112/71 12/29/19 02:35 36.8 C 77 18 101/61 95 Laboratory Results Short CBC 12/28/19 12/29/19 Range/Units 21:45 05:19 WBC 12.65 H 10.68 (4.8-10.8) K/uL Hgb 16.1 H 14.2 (12.0-16.0) g/dL Hct 47.3 H 42.5 (37-47) % Plt Count 284 237 (130-400) K/uL BMP 12/28/19 12/29/19 21:45 05:19 Sodium 140 144 Potassium 3.6 3.7 Chloride 106 110 H Carbon Dioxide 28 30 BUN 9 11 Creatinine 1.01 0.85 Glucose 106 H 94 Calcium 10.6 H 9.7 Cardiac Enzymes 12/28/19 12/29/19 12/29/19 Range/Units 21:45 05:19 11:17 Troponin I < 0.015 < 0.015 < 0.015 (0-0.045) ng/ml Liver Function 12/28/19 Range/Units 21:45 Total Bilirubin 0.5 (0.2-1) mg/dl AST 8 L (15-37) U/L ALT 18 (12-78) U/L Alkaline Phosphatase 156 H (45-117) U/L Albumin 3.7 (3.4-5.0) gm/dl Medications Administered Current Inpatient Medications Acetaminophen (Tylenol) 650 mg PO Q4H PRN PRN Reason: Pain or Fever Stop: 01/28/20 00:34 [facility]: 01/28/20 08:59 Last Admin: 12/29/19 08:44 Dose: 81 mg Documented by: Duloxetine HCl (Cymbalta) 20 mg PO QAM [facility] Stop: 01/28/20 08:59 Last Admin: 12/29/19 08:44 Dose: 20 mg Documented by: Furosemide (Lasix) 40 mg PO QAM PRN PRN Reason: Edema Stop: 01/28/20 00:34 Levothyroxine Sodium (Synthroid) 250 mcg PO DAILYBB [facility] Stop: 01/28/20 06:29 Last Admin: 12/29/19 06:30 Dose: 250 mcg Documented by: Levothyroxine Sodium (Synthroid) 200 mcg PO DAILYBB [facility] Stop: 12/30/19 06:31 Levothyroxine Sodium (Synthroid) 50 mcg PO DAILYBB [facility] Stop: 12/30/19 06:31 Morphine Sulfate (Morphine Sulfate Ir) 15 mg PO TID [facility] Stop: 01/12/20 08:59 Last Admin: 12/29/19 08:44 Dose: 15 mg Documented by: Morphine Sulfate (Ms Contin) 15 mg PO TID [facility] Stop: 01/12/20 08:59 Last Admin: 12/29/19 08:44 Dose: 15 mg Documented by: Nitroglycerin (Nitrostat) 0.4 mg SL UD PRN PRN Reason: Chest Pain Stop: 01/28/20 00:34 Last Admin: 12/29/19 04:43 Dose: 0.4 mg Documented by: Ondansetron HCl (Zofran) 4 mg IV Q6H PRN PRN Reason: Nausea Stop: 01/28/20 00:34 Prochlorperazine (Compazine) 10 mg PO QID PRN PRN Reason: Nausea And Vomiting Stop: 01/28/20 00:34 Rizatriptan Benzoate (Maxalt) 10 mg PO Q2H PRN PRN Reason: Headache Stop: 01/28/20 00:34 Trazodone HCl (Desyrel) 50 mg PO HS [facility] Stop: 01/28/20 20:59
[2019-12-29] MEDS ORDERED: TRAZODONE HCL 50 MG TAB PO SCH (21:00)
[2019-12-30] MEDS ORDERED: LEVOTHYROXINE SODIUM 50 MCG TABLET PO SCH (06:30)
[2019-12-30] MEDS ORDERED: LEVOTHYROXINE SODIUM 200 MCG TABLET PO SCH (06:30)
--- NOTE | 2019-12-30 08:28 | Discharge Summary ---
Date of Service December 30, 2019 Admission HPI Per Admitting Provider DICTATED BY: Edward Mahoney MD DATE OF ADMISSION: 12/28/2019 CHIEF COMPLAINT: Chest pain. HISTORY OF PRESENT ILLNESS: This 49-year-old female with past medical history significant for hypothyroidism, irritable bowel syndrome, fibromyalgia, chronic back pain, bulging lumbar disc, history of migraine, chronic pain syndrome, opioid dependence, tobacco use disorder, generalized anxiety disorder, presents with chest pain. The patient is having chest pain since today morning on and off. She came to the ER early in the morning. At that time, her workup was negative with EKG and CTA of the chest was unremarkable and she was sent home. The patient again after going home at around 7:30 p.m. she again started to have chest pain, 9/10 in severity, in the center of the chest radiating to his shoulder and neck and to the back, pressure like feeling, somebody sitting on her chest and feeling short of breath, nauseous and dizzy and she was profusely sweating. She has some nitro at home which she took, but she thinks the medications is old and did not help much and in the ambulance, she was given 2 nitro paste that seem to help little bit and she got some Dilaudid in the ER, which now improved her pain. Now she sates the pain is almost resolved. Currently resting comfortably and hemodynamically stable. The patient has episode in 2014 when she was in the hospital, intubated and thought to be from the hypothyroidism versus drug overdose. At that time, she was found to have cardiomyopathy thought to be stress related, and as per the cardiology outpatient notes, few months later followup dobutamine stress test seemed to show the cardiomyopathy improved. The patient thinks that she might have also had small episode regarding heart couple of times. She has some headache from the nitro. Denies any blurred vision, no earache, no runny nose, no sore throat, no dysphagia, no abdominal pain. Normal bowel and bladder movements. No blood in stool or black stools, no hematuria. No swelling in the legs, no rash. Otherwise, she ambulates and climbs steps okay. Admission Exam Per Admitting Provider GENERAL: The patient is of moderate build, not in acute distress. VITAL SIGNS: Temperature 37, pulse 84, respiratory rate 16, blood pressure 140/84, oxygen 94% on room air. HEENT: Pupils equal, round, reactive to light. Atraumatic. NECK: No JVD, no neck masses. CARDIOVASCULAR: S1, S2 heard, regular rate and rhythm, no murmur, no gallop. RESPIRATORY SYSTEM: Normal AP diameter. No accessory muscle use. No wheezing, no crackles. ABDOMEN: Soft, bowel sounds present, nontender. No distention. CENTRAL NERVOUS SYSTEM: Cranial nerves II-XII grossly intact. Nonfocal. EXTREMITIES: No edema, no erythema. Principal Diagnosis Chest pain -ACS ruled out, fibromyalgia Discharge Exam Constitutional well developed, well nourished and + obese; no acute distress and not ill appearing Eyes PERRL, conjunctivae normal, anicteric sclerae ENMT external ear and nose normal, oropharynx normal Neck trachea midline, no thyromegaly Respiratory normal respiratory effort; no respiratory distress Auscultation: lungs clear to auscultation bilaterally Cardiovascular Rate/Rhythm: regular rate and regular rhythm Heart Sounds: no murmur Gastrointestinal (Abdomen) Inspection/Auscultation: abdomen normal to inspection and normal bowel sounds Percussion/Palpation: abdomen soft; abdomen not rigid Neurologic moves all extremities; no focal motor deficits Discharge Data Allergies Allergy/AdvReac Type Severity Reaction Status Date / Time gabapentin Allergy Severe anaphylaxis Verified 12/28/19 15:23 tramadol Allergy Severe ANAPHYLAXIS Verified 12/28/19 15:23 chlorpheniramine Allergy Intermediate SHORTNESS Verified 12/28/19 15:23 OF BREATH guaifenesin Allergy Intermediate SHORTNESS Verified 12/28/19 15:23 OF BREATH metoclopramide AdvReac Intermediate anxiety Verified 12/28/19 15:23 Consultations 12/28/19 23:14 ED Decision to Admit Stat 12/29/19 08:00 Consult Cardiology Routine Hospital Course (1) Substernal chest pain: Pain suggestive of angina with history of fibromyalgia and remote history of cardiomyopathy with negative stress echo thereafter Serial cardiac troponins and EKGs are unremarkable for any ACS CT of the chest did not show any thoracic abnormality and/or pulmonary embolism Appreciate cardiology input and recommendation-no further cardiac testing We will likely send the patient home this afternoon (2) Cardiomyopathy: No acute issue (3) Fibromyalgia: No acute findings (4) Hypothyroidism: Continue supplemental medications CODE STATUS Full Total Time Total Time Spent Total Time Spent (In Minutes): 35 minutes Total Time Includes: Examination of the Patient, Discharge Planning, Medication Reconciliation and Communication With Other Providers Discharge Plan Discharge Items Patient Disposition: Home - Self-Care Reason For Visit: CHEST PAIN Discharge Diagnosis: Chest pain -ACS ruled out, fibromyalgia Condition on Discharge: Good Activity: Resume your previous activity Non-emergency contact: Primary Care Provider Call non-emergency contact if: you have any medication questions and your symptoms worsen Follow-up/Referrals: Dajuan Bell, [Primary Care Provider] - (Your doctor's office will call with an appointment within 1 week) Diet: Heart Healthy Addtl Attending Provider Instructions: No change in your medications Pending Studies at Discharge: No Stand-Alone Forms: [facility] [place], Smoking Cessation Medications and DC Order Prescriptions: Continued rizatriptan [Maxalt] 10 mg tablet 10 mg PO Q2H PRN (Reason: Headache) RF: 0 aspirin [Aspir-81] 81 mg Tablet,Delayed Release (Dr/Ec) 81 mg PO QAM RF: 0 furosemide [Lasix] 40 mg Tablet 40 mg PO QAM PRN (Reason: Edema) RF: 0 nitroglycerin [Nitrostat] 0.4 mg Tablet, Sublingual 0.4 mg Sublingual DIRECTED PRN (Reason: Chest Pain) RF: 0 ondansetron HCl [Zofran] 4 mg Tablet 4 - 8 mg PO QID PRN (Reason: Nausea And Vomiting) RF: 0 trazodone 50 mg Tablet 50 - 100 mg PO HS RF: 0 promethazine 25 mg suppository 25 mg IA Q6H PRN (Reason: Nausea And Vomiting) RF: 0 prochlorperazine maleate [Compazine] 10 mg tablet 10 mg PO QID PRN (Reason: Nausea And Vomiting) RF: 0 morphine 15 mg tablet extended release 15 mg PO TID RF: 0 duloxetine 20 mg capsule,delayed release(DR/EC) 20 mg PO QAM RF: 0 morphine 15 mg tablet 15 mg PO TID RF: 0 levothyroxine 125 mcg tablet 250 mcg PO QAM RF: 0 Discharge Orders: Discharge Order (Routine); Ordered 12/29/19 Ordered By: Roz Figueredo Admission Data Admit Date/Time: 12/28/19 23:43 Attending Provider: Roz Figueredo Admit Provider: Edward Mahoney Primary Care Provider: Dajuan Bell Other Providers: Edward Mahoney ; Kam Turner ; Tyson Wong ; Pipe Barriga ; Antonio Larson ; Lokesh Perdomo ; Torres Thacker ; Elina Trotter ; Myah Gomez ; Dutch Hutchins Other Interventions: Discharge Summary Assessment (RN) Last Done: 12/29/19 14:24 DC Date/Time DO NOT enter until pt leaves facility: 12/29/19 15:20
--- NOTE | 2019-12-30 13:34 | Electrocardiogram Report ---
Test Reason : Blood Pressure : / mmHG Vent. Rate : 081 BPM Atrial Rate : 081 BPM P-R Int : 162 ms QRS Dur : 072 ms QT Int : 348 ms P-R-T Axes : 051 -25 053 degrees QTc Int : 404 ms Poor data quality, interpretation may be adversely affected Normal sinus rhythm Low voltage QRS Borderline ECG When compared with ECG of 28-DEC-2019 18:00, (unconfirmed) No significant change was found Confirmed by Vinh Waters ([id number]) on 12/30/2019 1:33:53 PM Referred By: REFERRED SELF Confirmed By:Vinh Waters
--- NOTE | 2019-12-30 13:47 | Electrocardiogram Report ---
Test Reason : Blood Pressure : / mmHG Vent. Rate : 060 BPM Atrial Rate : 060 BPM P-R Int : 184 ms QRS Dur : 078 ms QT Int : 406 ms P-R-T Axes : 073 059 075 degrees QTc Int : 406 ms Normal sinus rhythm ST elevation, consider early repolarization, pericarditis, or injury Normal ECG When compared with ECG of 28-DEC-2019 22:08, (unconfirmed) ST elevation now present in Anterior leads Confirmed by Vinh Waters ([id number]) on 12/30/2019 1:47:38 PM Referred By: REFERRED SELF Confirmed By:Vinh Waters
--- NOTE | 2019-12-30 14:02 | Electrocardiogram Report ---
Test Reason : Blood Pressure : / mmHG Vent. Rate : 075 BPM Atrial Rate : 075 BPM P-R Int : 166 ms QRS Dur : 074 ms QT Int : 366 ms P-R-T Axes : 019 011 050 degrees QTc Int : 408 ms Normal sinus rhythm Normal ECG When compared with ECG of 29-DEC-2019 06:33, (unconfirmed) No significant change was found Confirmed by Vinh Waters ([id number]) on 12/30/2019 2:02:35 PM Referred By: REFERRED SELF Confirmed By:Vinh Waters
== END 2019-12-29 15:20 | disposition home or self-care (01) ==
LOC: ED 22:01 → 2N 22:01

== ENCOUNTER 2020-11-16 20:16 | Observation (INO) ==
[2020-11-16] MEDS ORDERED: SODIUM CHLORIDE 0.9% 1000ML 1,000 ML IV ONE (20:37)
[2020-11-16] MEDS ORDERED: MoRPHine SULFATE 10 MG/ML CARP/VIAL IV STA (20:37)
[2020-11-16] MEDS ORDERED: ONDANSETRON INJ 2 MG/ML 2 ML VIAL IV STA (20:37)
--- NOTE | 2020-11-16 20:44 | Emergency Department Note ---
History of Present Illness General Chief complaint: Leg Injury/Pain Stated complaint: PAIN/NAUSEA Time Seen by Provider: 11/16/20 20:26 Source: patient History of Present Illness Provider complaint: Back pain Onset (ago): day(s) Location: back Radiation: extremity (Both legs) Severity: severe Pain Consistency: + constant Quality: + stabbing Exacerbated By: + movement Associated symptoms: + nausea/vomiting; no chest pain, no cough, no fever/chills, no headaches and no shortness of breath This is a 50-year-old female with a history of chronic back pain due to sciatica presenting with worsening of her back pain since yesterday. The patient states that she fell on her sister's porch approximately 5 steps and was seen here. She had multiple studies including MRIs and CAT scans which were negative and she was sent home. She states that she has been unable to manage her pain as she continues to have pain in her back starting from her shoulder blades down to her lower back. She states it feels like a feli shooting up into her back. And she has vibrating pain down both of her legs. She is chronically on morphine and has been on it for about 2 years. She states that she has been unable to keep it down as she keeps vomiting. She denies any abdominal pain or diarrhea. She states that the pain is so severe that it makes her vomit. She did have a headache yesterday but states that that went away. She denies any chest pain, shortness of breath, fever, cough or cold symptoms, incontinence or saddle anesthesia. Home Medications Medication Instructions Recorded Confirmed Type furosemide [Lasix] 40 mg PO QAM PRN 03/17/18 11/16/20 History nitroglycerin [Nitrostat] 0.4 mg SUBLINGUAL DIRECTED PRN 03/17/18 11/16/20 History morphine 15 mg PO TID 10/06/18 11/16/20 History levothyroxine 250 mcg PO QAM 12/28/19 11/16/20 History morphine 15 mg PO TID 12/28/19 11/16/20 History aspirin [Aspirin Low Dose] 81 mg PO QAM 09/23/20 11/16/20 History duloxetine 60 mg PO DAILY 09/24/20 11/16/20 History metformin 500 mg PO DAILY 09/24/20 11/16/20 History duloxetine 30 mg PO DAILY 11/15/20 11/16/20 History polyethylene glycol 3350 [Miralax] 17 g PO DAILY PRN 11/15/20 11/16/20 History acetaminophen [Tylenol Extra 1,000 mg PO Q6H PRN 11/16/20 11/16/20 History Strength] ibuprofen 400 mg PO Q6H PRN 11/16/20 11/16/20 History tizanidine 2 mg PO Q6H PRN 11/16/20 11/16/20 History Allergies Allergy/AdvReac Type Severity Reaction Status Date / Time gabapentin Allergy Severe anaphylaxis Verified 11/16/20 21:24 tramadol Allergy Severe ANAPHYLAXIS Verified 11/16/20 21:24 chlorpheniramine Allergy Intermediate SHORTNESS Verified 11/16/20 21:24 OF BREATH guaifenesin Allergy Intermediate SHORTNESS Verified 11/16/20 21:24 OF BREATH metoclopramide AdvReac Intermediate anxiety Verified 11/16/20 21:24 Past Med/Surg History Medical History (Updated 11/16/20 @ 22:44 by Antonio Valera MD) Anxiety Atelectasis Cardiomyopathy 2014 - thought to be stress induced, reported normal dobutamine stress and echo after Chronic back pain Chronic pain syndrome Depression Fibromyalgia H/O traumatic brain injury Hypokalemia Hypothyroidism (Unknown) IBS (irritable bowel syndrome) Migraines Opiate dependence Tobacco abuse Surgical History Bilateral tubal ligation (Unknown) section (Unknown) H/O colonoscopy "2006 path normal" H/O cystoscopy H/O esophagogastroduodenoscopy "2006 path normal" Hx of appendectomy Hx of cholecystectomy Hx of hysterectomy S/P lymph node biopsy "deep cervical inflammatory node 2007" Family History Other Diabetes Hypertension Thyroid disorder Social History Smoking Status: Former smoker Tobacco Type: Cigarettes Cigarettes Per Day: 10; Second Hand Exposure: No; Hx Alcohol Use: No Hx Substance Use: No Preferred Language: [place] Communication Ability: Effective Visual Impairment: Partially Limited [employer] Set Up Operator Required: No Beliefs That Will Affect Care: None marital status: Current Living Situation: Spouse and Family Feels Safe at Home: No Is there a partner from a previous relationship who is making you feel unsafe now?: No Assistive Devices: None Review of Systems See HPI for pertinent positives & negatives. and A total of 10 systems reviewed and were otherwise negative Physical Exam Vital Signs Vital Signs - 24 hr 11/16/20 20:26 11/16/20 20:27 Temperature 37.2 C Temperature Source Oral Pulse Rate 84 80 Respiratory Rate 15 16 Respiratory Effort / Characteristics Non-Labored Spontaneous Respiratory Depth Normal Blood Pressure 138/87 138/87 Blood Pressure Mean 104 104 Blood Pressure Position Lying Pulse Oximetry 95 94 Oxygen Delivery Method Room Air Sepsis Recent Fever Within 48 Hours No Sepsis New/Unexplained Change in Mental Status N/A Sepsis Action Taken by Nursing No Action Required Constitutional: Vital signs reviewed. Eyes: Pupils are equal round reactive to light. Conjunctiva are noninjected. ENT: Pharynx is clear without erythema or exudate. Mucous membranes are moist. Neck supple without meningeal signs. Respiratory: Clear to auscultation bilaterally. Breath sounds are equal bilaterally. Cardiovascular: Regular rate and rhythm. No rubs or gallops. GI: Soft, nondistended and nontender. Bowel sounds are present. Musculoskeletal: No peripheral edema. No midline tenderness to the thoracic or lumbar spine. Integumentary: No cyanosis. or jaundice. Neurological: The patient is awake and alert. Motor and sensation are intact throughout the lower extremities although it is difficult to assess proximal strength due to pain. Psychiatric: Normal affect. Not anxious appearing. Course Administered Medications Discontinued Medications Hydromorphone HCl (Hydromorphone Inj 0.5 Mg/0.5 Ml Syr) 0.5 mg IV NOW STA Stop: 11/16/20 21:34 Last Admin: 11/16/20 21:39 Dose: 0.5 mg Documented by: [id number] Sodium Chloride (Nss 1000ml) 1,000 mls @ 999 mls/hr IV .Q1H1M ONE Stop: 11/16/20 21:37 Last Infusion: 11/16/20 22:08 Dose: 0 mls/hr Documented by: [id number] Admin: 11/16/20 20:48 Dose: 999 mls/hr Documented by: [id number] Promethazine HCl (Phenergan) 12.5 mg in 50.5 mls @ 202 mls/hr IV NOW STA Stop: 11/16/20 21:47 Last Infusion: 11/16/20 22:07 Dose: 0 mls/hr Documented by: [id number] Admin: 11/16/20 21:39 Dose: 202 mls/hr Documented by: [id number] Morphine Sulfate (Morphine Sulfate 10 Mg/Ml Carp/Vial) 6 mg IV NOW STA Stop: 11/16/20 20:38 Last Admin: 11/16/20 20:51 Dose: 6 mg Documented by: [id number] Ondansetron HCl (Ondansetron Inj 2 Mg/Ml 2 Ml Vial) 4 mg IV NOW STA Stop: 11/16/20 20:38 Last Admin: 11/16/20 20:51 Dose: 4 mg Documented by: [id number] Medical Decision Making Differential Diagnosis Acute exacerbation of chronic pain, dehydration, gastritis, medication side effect, electrolyte abnormality Medical Records Attestation: I reviewed the patient's medical records. I did perform a limited focused review of portions of the patient's old chart on the electronic medical record. The patient was evaluated yesterday after falling down her sister's porch. She had multiple tests including CT of the head, spine, chest and abdomen pelvis. She also had MRIs of her cervical, thoracic and lumbar spine. These were unremarkable other than some broad-based disc bulge. Home Medications Current Medication List: was personally reviewed by me Laboratory Data Attestation: I reviewed the patient's lab results. Result diagrams: 11/16/20 21:21 11/16/20 21:21 Lab Results 11/16/20 11/16/20 Range/Units 21:21 21:21 WBC 10.64 (4.8-10.8) K/uL RBC 4.97 (4.2-5.4) M/uL Hgb 15.0 (12.0-16.0) g/dL Hct 44.8 (37-47) % MCV 90.1 (80-100) fL MCH 30.2 (25-34) pg MCHC 33.5 (32-36) g/dL RDW Std Deviation 43.6 (36.4-46.3) fL RDW Coeff of Roro 13.2 (11.5-14.5) % Plt Count 278 (130-400) K/uL MPV 10.3 (7.4-10.4) fL Immature Gran % (Auto) 0.2 % Neut % (Auto) 77.6 % Lymph % (Auto) 17.6 % Island % (Auto) 4.2 % Eos % (Auto) 0.2 % Baso % (Auto) 0.2 % Neut # (Auto) 8.26 H (1.4-6.5) K/uL Lymph # (Auto) 1.87 (1.2-3.4) K/uL Island # (Auto) 0.45 (0.11-0.59) K/uL Eos # (Auto) 0.02 (0-0.5) K/uL Baso # (Auto) 0.02 (0-0.2) K/uL Immature Gran # (Auto) 0.02 (0.00-0.02) K/uL Sodium 142 (136-145) mmol/L Potassium 3.5 (3.5-5.1) mmol/L Chloride 106 (98-107) mmol/L Carbon Dioxide 31 (21-32) mmol/L Anion Gap 4.0 (3-11) BUN 12 (7-18) mg/dl Creatinine 0.97 (0.6-1.2) mg/dl Est Cr Clr Drug Dosing 97.8 ml/min Est GFR ( Amer) 79.5 ml/min Est GFR (Non-Af Amer) 68.6 ml/min BUN/Creatinine Ratio 12.8 (10-20) Glucose 118 H (70-99) mg/dl Calcium 10.2 H (8.5-10.1) mg/dl Total Bilirubin 0.6 (0.2-1) mg/dl AST 8 L (15-37) U/L ALT 12 (12-78) U/L Alkaline Phosphatase 109 (45-117) U/L Total Protein 7.3 (6.4-8.2) gm/dl Albumin 3.5 (3.4-5.0) gm/dl Globulin 3.8 (2.5-4.0) gm/dl Albumin/Globulin Ratio 0.9 (0.9-2) MDM Narrative I did evaluate the patient as noted above. She is presenting with worsening pa in in her back after falling yesterday. She has been unable to take her pain medication because she is vomiting today. She does not have any abdominal pain or any headache at this time. She is neurologically intact and has no signs of spinal cord injury. She had multiple MRIs yesterday demonstrating no significant disease other than some disc bulging. IV access was established. I did treat the patient with IV morphine and Zofran. She was also given normal saline IV. She had continued pain and so was given Dilaudid and Phenergan IV. I did order and review the patient's blood work as noted in the electronic medical record. White count slightly elevated 10.6 but she has been vomiting. She is not anemic. Platelet count is within normal limits. Electrolytes are unremarkable. I did reassess the patient. She is still having pain. She does not feel she can go home and manage her symptoms. She will therefore be hospitalized for further care and evaluation. I did discuss the case with the hospitalist and case management. Impression & Plan Intractable vomiting, Intractable back pain Discharge Plan Visit Data Chief Complaint: Leg Injury/Pain Stated Complaint: PAIN/NAUSEA ED Provider: Antonio Valera Discharge Problem: Intractable vomiting, Intractable back pain Patient Disposition: Being Evaluated by Hospitalist Forms Stand Alone Forms: My [facility] Prescriptions Prescriptions: No Action furosemide [Lasix] 40 mg Tablet 40 mg PO QAM PRN (Reason: Edema) RF: 0 nitroglycerin [Nitrostat] 0.4 mg Tablet, Sublingual 0.4 mg Sublingual DIRECTED PRN (Reason: Chest Pain) RF: 0 morphine 15 mg tablet extended release 15 mg PO TID RF: 0 morphine 15 mg tablet 15 mg PO TID RF: 0 levothyroxine 125 mcg tablet 250 mcg PO QAM RF: 0 aspirin [Aspirin Low Dose] 81 mg Tablet,Delayed Release (Dr/Ec) 81 mg PO QAM RF: 0 metformin 500 mg tablet extended release 24 hr 500 mg PO DAILY RF: 0 duloxetine 60 mg capsule,delayed release(DR/EC) 60 mg PO DAILY RF: 0 polyethylene glycol 3350 [Miralax] 17 gram/dose Powder 17 g PO DAILY PRN (Reason: Constipation) RF: 0 duloxetine 30 mg capsule,delayed release(DR/EC) 30 mg PO DAILY RF: 0 tizanidine 2 mg tablet 2 mg PO Q6H PRN (Reason: MUSCLE SPASMS) RF: 0 acetaminophen [Tylenol Extra Strength] 500 mg Tablet 1,000 mg PO Q6H PRN (Reason: Pain) RF: 0 ibuprofen 200 mg Tablet 400 mg PO Q6H PRN (Reason: Pain) RF: 0 Referrals Referrals: Dajuan Bell DO [Primary Care Provider] -
[2020-11-16] MEDS ORDERED: PROMETHAZINE 12.5 MG/50.5 ML BAG IV STA (21:33)
[2020-11-16] MEDS ORDERED: HYDROmorphone INJ 0.5 MG/0.5 ML SYR IV STA (21:33)
[2020-11-16 21:35] LABS: Basophils # (auto) 0.02 K/uL (0-0.2); Basophils % (auto) 0.2 %; Eosinophils # (auto) 0.02 K/uL (0-0.5); Eosinophils % (auto) 0.2 %; Hematocrit (blood only) 44.8 % (37-47); Immature Granulocytes # (auto) 0.02 K/uL (0.00-0.02); Immature Granulocytes % (auto) 0.2 %; Lymphocytes # (auto) 1.87 K/uL (1.2-3.4); Lymphocytes % (auto) 17.6 %; Mean Corpuscular Hemoglobin 30.2 pg (25-34); Mean Corpuscular Hgb Conc 33.5 g/dL (32-36); Mean Corpuscular Volume 90.1 fL (80-100); Mean Platelet Volume 10.3 fL (7.4-10.4); Monocytes # (auto) 0.45 K/uL (0.11-0.59); Monocytes % (auto) 4.2 %; Neutrophils # (auto) 8.26 K/uL (1.4-6.5); Neutrophils % (auto) 77.6 %; Platelet Count 278 K/uL (130-400); RDW Coefficient of Variation 13.2 % (11.5-14.5); RDW Standard Deviation 43.6 fL (36.4-46.3); Red Blood Count 4.97 M/uL (4.2-5.4); White Blood Count 10.64 K/uL (4.8-10.8)
[2020-11-16 21:53] LABS: Albumin Level 3.5 gm/dl (3.4-5.0); BUN Creatinine Ratio 12.8 (10-20); Calcium 10.2 mg/dl (8.5-10.1); Creatinine Clr Calc Pharmacy 97.8 ml/min; Est GFR (African American) 79.5 ml/min; Est GFR (Non-African American) 68.6 ml/min; Potassium 3.5 mmol/L (3.5-5.1)
[2020-11-16 21:56] LABS: Albumin Globulin Ratio 0.9 (0.9-2); Bilirubin,Total 0.6 mg/dl (0.2-1); Globulin 3.8 gm/dl (2.5-4.0); Total Protein 7.3 gm/dl (6.4-8.2)
[2020-11-17] MEDS ORDERED: POLYETHYLENE (MIRALAX) 17 GM PACK PO PRN (02:01)
[2020-11-17] MEDS ORDERED: tiZANidine HCL 4 MG TABLET PO PRN (02:01)
[2020-11-17] MEDS ORDERED: FUROSEMIDE 40 MG TAB PO PRN (02:01)
[2020-11-17] MEDS ORDERED: ACETAMINOPHEN 500 MG TAB PO PRN (02:01)
[2020-11-17] MEDS ORDERED: NITROGLYCERIN SL 0.4 MG/TAB TAB SL PRN (02:01)
[2020-11-17] MEDS ORDERED: SODIUM CHLORIDE 0.9% 1000ML 1,000 ML IV SCH (02:01)
[2020-11-17] MEDS: HYDROmorphone INJ 0.5 MG/0.5 ML SYR IV PRN ×3 (03:11→16:46)
[2020-11-17] MEDS ORDERED: CARBOHYDRATES FOR HYPOGLYCEMIA PO PRN (05:00)
[2020-11-17] MEDS ORDERED: GLUCAGON FOR INJ 1 MG VIAL IM PRN (05:00)
[2020-11-17] MEDS ORDERED: DEXTROSE 50% 50 ML SYRINGE IV PRN (05:00)
[2020-11-17] MEDS ORDERED: GLUCOSE 40% GEL 15 GM TUBE PO PRN (05:00)
[2020-11-17] MEDS ORDERED: GLUCOSE 10 TABS/TUBE PO PRN (05:00)
[2020-11-17] MEDS ORDERED: LEVOTHYROXINE SODIUM 125 MCG TABLET PO SCH (06:30)
--- NOTE | 2020-11-17 07:34 | CT Scan Report ---
PELVIS CT CT DOSE: HISTORY: Pelvic and back pain, tingliness in legs TECHNIQUE: Multiaxial CT images of the pelvis were performed and reformatted in the sagittal and pavithra nal plane without the use of contrast. A dose lowering technique was utilized adhering to the princi ples of SANDEEP. COMPARISON: Abdomen and pelvis CT 11/15/2020. FINDINGS: No fracture or dislocation within the pelvis or hips. The sacrum is intact. Cartilage space s are maintained for age. Pelvic soft tissues are unremarkable. No pelvic free fluid or pelvic hemato ma. Prior hysterectomy. IMPRESSION: No fractures within the pelvis or hips. ACT 112: Negative or not required by law. Electronically signed by: Zheng Rivera M.D. 11/17/2020 7:32 AM
[2020-11-17 07:47] LABS: Basophils # (auto) 0.02 K/uL (0-0.2); Basophils % (auto) 0.2 %; Eosinophils # (auto) 0.13 K/uL (0-0.5); Eosinophils % (auto) 1.3 %; Hematocrit (blood only) 43.5 % (37-47); Hemoglobin 14.6 g/dL (12.0-16.0); Immature Granulocytes # (auto) 0.01 K/uL (0.00-0.02); Immature Granulocytes % (auto) 0.1 %; Lymphocytes # (auto) 2.96 K/uL (1.2-3.4); Lymphocytes % (auto) 29.7 %; Mean Corpuscular Hemoglobin 30.7 pg (25-34); Mean Corpuscular Hgb Conc 33.6 g/dL (32-36); Mean Corpuscular Volume 91.6 fL (80-100); Mean Platelet Volume 10.4 fL (7.4-10.4); Neutrophils # (auto) 6.16 K/uL (1.4-6.5); Neutrophils % (auto) 61.7 %; Platelet Count 252 K/uL (130-400); RDW Coefficient of Variation 13.4 % (11.5-14.5); RDW Standard Deviation 44.8 fL (36.4-46.3); Red Blood Count 4.75 M/uL (4.2-5.4); White Blood Count 9.98 K/uL (4.8-10.8)
[2020-11-17] MEDS ORDERED: ENOXAPARIN INJ 40 MG/0.4 ML SYR SQ SCH (08:00)
--- NOTE | 2020-11-17 08:02 | CT Scan Report ---
CT SCAN OF THE LUMBAR SPINE WITHOUT IV CONTRAST CLINICAL HISTORY: Low back pain. Tingling sensation in the lower extremities. COMPARISON STUDY: CT and MRI of the lumbar spine dated 11/15/2020. TECHNIQUE: CT scan of the lumbar spine is performed from the lower thoracic spine to the sacrum. Imag es are reviewed in the axial, sagittal, and coronal planes. IV contrast was not administered for this examination. A dose lowering technique was utilized adhering to the principles of ALARA. CT DOSE: 1800.73 mGy.cm FINDINGS: The skeletal structures are well mineralized. There is no evidence of fracture or malalignm ent involving the lumbar spine. Vertebral body height and alignment are maintained. The transverse an d spinous processes appear intact. There is no spondylolysis. No lytic or blastic lesion is seen. The disc spaces are maintained. A small posterior disc bulge is noted at L4-L5. There is no CT evidence of large disc herniation or high-grade central canal stenosis. The visualized sacrum and bony pelvis appear intact. The paraspinous soft tissues are within normal limits. IMPRESSION: 1. No osseous abnormality is identified involving the lumbar spine. No change from studies dated 11/15. 2. Posterior disc bulge is again seen at L4-L5. ACT 112: Negative or not required by law. Dictated: 11/17/2020 7:27 AM Transcribed: 11/17/2020 7:59 AM Dee [id number] [email or web address] Electronically signed by: Elvin Stephen M.D. 11/17/2020 8:01 AM
--- NOTE | 2020-11-17 08:04 | History and Physical Report ---
DATE OF ADMISSION: 11/17/2020. CHIEF COMPLAINT: Severe back pain. HISTORY OF PRESENT ILLNESS: This is a 50-year-old female with past medical history significant for hypothyroidism, prediabetes, irritable bowel syndrome, fibromyalgia, bulging lumbar disk, migraine, chronic pain syndrome, opiate dependence with opioid induced disorder, generalized anxiety disorder, moderate recurrent major depression, who presents with severe back pain. The patient was in the ER yesterday because she fell on her sister's porch approximately 5 steps and came to the ER. She had multiple studies including thoracic spine MRI, cervical spine MRI, lumbar spine MRI, thoracic spine CT, lumbar spine CT, head CT, chest CT, cervical spine CT, and abdominal CT and pelvis, all were unremarkable and the patient was sent home. Her in the room states that she could not ambulate today because of the severe pain, had to assisted her. She seemed to near pass out with pain and she has lot of nausea and she could not take her oral pills. That is why they came here. Hemodynamically stable. Labs look okay. The patient may need physical therapy and may need placement for ambulatory dysfunction. So we were called for admission. Currently, complains of back pain, could not lift her legs. Having feelings of tingliness in the lower extremities. No incontinence. Denies chest pain, no shortness of breath, no cough, no fever, no chills, no headache, no blurred vision, no earache, no runny nose, no sore throat. Appetite is okay, but she is feeling lot of nausea today. No abdominal pain, no diarrhea or constipation. Normal bladder movements. ALLERGIES: GABAPENTIN, TRAMADOL, CHLORPHENIRAMINE, GUAIFENESIN, METOCLOPRAMIDE. PAST MEDICAL HISTORY: As mentioned above. PAST SURGICAL HISTORY: Biopsy of the lymph nodes, , colonoscopy with biopsy, cystoscopy, EGD with biopsy, injection of lumbar spine, laparoscopic appendectomy, ligation of the oviducts, partial hysterectomy, cholecystectomy, video capsule endoscopy. MEDICATIONS: The patient is on Tylenol 1000 mg p.o. q. 6 hours p.r.n., aspirin 81 mg p.o. q.a.m., duloxetine 90 mg p.o. daily, Lasix 40 mg p.o. a.m. p.r.n., levothyroxine 250 mcg p.o. daily, Metformin 500 mg p.o. daily, morphine extended release 15 mg p.o. t.i.d., p.r.n., nitroglycerin 0.4 mg sublingual p.r.n., MiraLax 17 g p.o. daily p.r.n., tizanidine 2 mg p.o. q. 6 hours p.r.n. FAMILY HISTORY: Significant for maternal grandmother has breast cancer and ovarian and uterine cancer; mother had dementia, diabetes, hypertension; father has hypertension; mother has thyroid disorder. SOCIAL HISTORY: , smokes quarter pack a day for 20 years. No alcohol use. No drug use. REVIEW OF SYSTEMS: As per HPI. Rest of the review of systems negative. PHYSICAL EXAMINATION: GENERAL: The patient is obese, not in acute distress. VITAL SIGNS: Temperature 37.2, pulse 76, respiratory rate 17, blood pressure 122/86, oxygen 93% on room air. HEENT: Pupils equal, round and reactive to light. Oral mucosa moist. NECK: No JVD or neck masses. CARDIOVASCULAR: S1, S2 heard. Regular rate and rhythm. No murmur, no gallop. RESPIRATORY: Normal AP diameter. No accessory muscle use. No wheezing, no crackles. ABDOMEN: Soft, bowel sounds present, nontender, nondistended. CENTRAL NERVOUS SYSTEM: Alert and awake. Speech is clear. Insight is good. No facial droop. Obeys simple commands. EXTREMITIES: Lower extremities, no edema or erythema seen. Painful movements of the lower extremities. MUSCULOSKELETAL: Straight leg test positive in both lower extremities. LABORATORY DATA: WBC 15.6, hemoglobin 15, hematocrit 44.8, platelets 278. Sodium 142, potassium 3.5, chloride 106, bicarbonate 31, BUN 12, creatinine 0.9, serum glucose 118, calcium 10.2, total bilirubin 0.6, AST 8, ALT 12, alkaline phosphatase 109. SARS-CoV-2 PCR negative. ASSESSMENT AND PLAN: This is a 50-year-old female who presents with severe back pain and ambulatory dysfunction. 1. Severe back pain and ambulatory dysfunction: The patient fell at sister's porch yesterday and multiple imaging studies were done in the ER yesterday, which were unremarkable. The patient was sent home, but complains of tingliness in lower extremities and ambulatory dysfunction and a lot of pain in the back. We will repeat a CT of lumbar spine and pelvis CT scan. Observe in medical floor. PT, OT. IV pain meds p.r.n. Pain management consult.Social service to help with discharge planning. 2. Chronic pain syndrome: Continue her home pain medications. 3. History of depression: Continue duloxetine. 4. Prediabetes: On metformin, will hold. Placed on insulin sliding scale. Follow HbA1c level. Diabetic diet. 5. Hypothyroidism: On Synthroid. 6. Deep venous thrombosis prophylaxis: Placed on Lovenox. DISPOSITION: Admit to observe in medical floor. PT, OT and social service to help with discharge plan. Job ID: [id number] [facility]
[2020-11-17 08:07] LABS: Estimated Average Glucose 117 mg/dl; Hemoglobin A1C 5.7 % (4.5-5.6)
[2020-11-17 08:12] LABS: BUN Creatinine Ratio 17.9 (10-20); Calcium 9.2 mg/dl (8.5-10.1); Creatinine Clr Calc Pharmacy 107.4 ml/min; Est GFR (African American) 89.4 ml/min; Est GFR (Non-African American) 77.2 ml/min; Magnesium 2.4 mg/dl (1.8-2.4); Potassium 3.4 mmol/L (3.5-5.1)
[2020-11-17] MEDS ORDERED: ASPIRIN 81 MG ECTAB PO SCH (09:00)
[2020-11-17] MEDS ORDERED: DULoxetine HCL 30 MG CAP PO SCH (09:00)
[2020-11-17] MEDS ORDERED: DULoxetine HCL 60 MG CAP PO SCH (09:00)
[2020-11-17] MEDS: MoRPHine SULFATE CR 15 MG TABCR PO SCH ×2 (09:24→13:39)
[2020-11-17] MEDS: INSULIN ASPART 100 UNITS/ML 3 ML PEN SC SCH ×3 (09:37→17:21)
--- NOTE | 2020-11-17 16:40 | Hospitalist Progress Note ---
Date of Service November 17, 2020 Assessment & Plan (1) Back strain: This is a 50-year-old female who presents with severe back pain and ambulatory dysfunction. 1. Severe back pain and ambulatory dysfunction: The patient fell at sister's porch yesterday and multiple imaging studies were done in the ER yesterday, which were unremarkable. The patient was sent home, but complains of tingliness in lower extremities and ambulatory dysfunction and a lot of pain in the back. Repeated a CT of lumbar spine and pelvis CT scan -no fracture, unremarkable. Orthospine consulted by ER physician, patient to be seen next day however patient canceled. PT, OT -recommend wheeled walker, patient received a prescription IV pain meds p.r.n. Pain management consult.Social service to help with discharge planning. Patient tells me that she has a appointment scheduled with orthospine in [place] and also with her pain management doctor, Dr. Barr Ask radiology to push images/MRI spine to [facility] Will also provide patient with a CD, with her images, for her providers to review 2. Chronic pain syndrome: Continue her home pain medications. 3. History of depression: Continue duloxetine. 4. Prediabetes: On metformin, will hold. Placed on insulin sliding scale. Follow HbA1c level. Diabetic diet. 5. Hypothyroidism: On Synthroid. 6. Deep venous thrombosis prophylaxis: Placed on Lovenox. DISPOSITION: Plan to discharge home with close follow-up with family medicine, orthospine, and pain management Admission and Anticipated Discharge Date Admission Date: November 17, 2020 Subjective Patient seen in follow-up of back pain Currently lying in bed in no acute distress Worked with PT, OT, wheeled walker recommended, prescription provided Patient tells me she already has appointment with orthopedic surgery in [place], I sent MRI images to [place]/via radiology, also will provide CD with images for the patient and her providers Patient also tells me she has appointment with Dr. Barr, her pain management physician Review of Systems Review of Systems: All systems reviewed & are unremarkable except as noted in HPI & below Constitutional: no fever and no chills Respiratory: no cough and no dyspnea Cardiovascular: no chest pain and no palpitations Gastrointestinal: no abdominal pain and no vomiting Physical Exam Physical Exam: GENERAL: The patient is obese, not in acute distress. HEENT: NC/AT, Pupils equal, round and reactive to light. Oral mucosa moist. NECK: No JVD or neck masses. CARDIOVASCULAR: S1, S2 heard. Regular rate and rhythm. No murmur, no gallop. RESPIRATORY: Normal AP diameter. No accessory muscle use. No wheezing, no crackles. ABDOMEN: Soft, bowel sounds present, nontender, nondistended. NEURO: Alert and awake. Speech is clear. No facial asymmetry. Moves all extremities spontaneously. EXTREMITIES: Lower extremities, no edema or erythema seen. Painful movements of the lower extremities. SKIN; war, dry Results & Data Results & Data ([facility]) Vital Signs (Past 12 Hours) Vital Signs Temp Pulse Resp BP Pulse Ox 11/17/20 08:35 36.9 C 60 18 137/76 94 Laboratory Results 11/17/20 11/17/20 11/17/20 Range/Units 12:38 08:29 07:14 WBC (4.8-10.8) K/uL RBC (4.2-5.4) M/uL Hgb (12.0-16.0) g/dL Hct (37-47) % MCV (80-100) fL MCH (25-34) pg MCHC (32-36) g/dL RDW Std Deviation (36.4-46.3) fL RDW Coeff of Roro (11.5-14.5) % Plt Count (130-400) K/uL MPV (7.4-10.4) fL Immature Gran % (Auto) % Neut % (Auto) % Lymph % (Auto) % [place] % (Auto) % Eos % (Auto) % Baso % (Auto) % Neut # (Auto) (1.4-6.5) K/uL Lymph # (Auto) (1.2-3.4) K/uL [place] # (Auto) (0.11-0.59) K/uL Eos # (Auto) (0-0.5) K/uL Baso # (Auto) (0-0.2) K/uL Immature Gran # (Auto) (0.00-0.02) K/uL Sodium (136-145) mmol/L Potassium (3.5-5.1) mmol/L Chloride (98-107) mmol/L Carbon Dioxide (21-32) mmol/L Anion Gap (3-11) BUN (7-18) mg/dl Creatinine (0.6-1.2) mg/dl Est Cr Clr Drug Dosing ml/min Est GFR ( Amer) ml/min Est GFR (Non-Af Amer) ml/min BUN/Creatinine Ratio (10-20) Glucose (70-99) mg/dl POC Glucose 92 96 (70-99) mg/dl Estimat Average Glucose 117 mg/dl Hemoglobin A1c 5.7 H (4.5-5.6) % Calcium (8.5-10.1) mg/dl Magnesium (1.8-2.4) mg/dl Total Bilirubin (0.2-1) mg/dl AST (15-37) U/L ALT (12-78) U/L Alkaline Phosphatase (45-117) U/L Total Protein (6.4-8.2) gm/dl Albumin (3.4-5.0) gm/dl Globulin (2.5-4.0) gm/dl Albumin/Globulin Ratio (0.9-2) COVID-19 Eval Order SARS-CoV-2 (PCR) (Negative) 11/17/20 11/17/20 11/16/20 Range/Units 07:14 07:14 23:10 WBC 9.98 (4.8-10.8) K/uL RBC 4.75 (4.2-5.4) M/uL Hgb 14.6 (12.0-16.0) g/dL Hct 43.5 (37-47) % MCV 91.6 (80-100) fL MCH 30.7 (25-34) pg MCHC 33.6 (32-36) g/dL RDW Std Deviation 44.8 (36.4-46.3) fL RDW Coeff of Roro 13.4 (11.5-14.5) % Plt Count 252 (130-400) K/uL MPV 10.4 (7.4-10.4) fL Immature Gran % (Auto) 0.1 % Neut % (Auto) 61.7 % Lymph % (Auto) 29.7 % [place] % (Auto) 7.0 % Eos % (Auto) 1.3 % Baso % (Auto) 0.2 % Neut # (Auto) 6.16 (1.4-6.5) K/uL Lymph # (Auto) 2.96 (1.2-3.4) K/uL [place] # (Auto) 0.70 H (0.11-0.59) K/uL Eos # (Auto) 0.13 (0-0.5) K/uL Baso # (Auto) 0.02 (0-0.2) K/uL Immature Gran # (Auto) 0.01 (0.00-0.02) K/uL Sodium 142 (136-145) mmol/L Potassium 3.4 L (3.5-5.1) mmol/L Chloride 108 H (98-107) mmol/L Carbon Dioxide 30 (21-32) mmol/L Anion Gap 5.0 (3-11) BUN 16 (7-18) mg/dl Creatinine 0.88 (0.6-1.2) mg/dl Est Cr Clr Drug Dosing 107.4 ml/min Est GFR ( Amer) 89.4 ml/min Est GFR (Non-Af Amer) 77.2 ml/min BUN/Creatinine Ratio 17.9 (10-20) Glucose 85 (70-99) mg/dl POC Glucose (70-99) mg/dl Estimat Average Glucose mg/dl Hemoglobin A1c (4.5-5.6) % Calcium 9.2 (8.5-10.1) mg/dl Magnesium 2.4 (1.8-2.4) mg/dl Total Bilirubin (0.2-1) mg/dl AST (15-37) U/L ALT (12-78) U/L Alkaline Phosphatase (45-117) U/L Total Protein (6.4-8.2) gm/dl Albumin (3.4-5.0) gm/dl Globulin (2.5-4.0) gm/dl Albumin/Globulin Ratio (0.9-2) COVID-19 Eval Order SARS-CoV-2 (PCR) NEGATIVE (Negative) 11/16/20 11/16/20 11/16/20 Range/Units 23:10 21:21 21:21 WBC 10.64 (4.8-10.8) K/uL RBC 4.97 (4.2-5.4) M/uL Hgb 15.0 (12.0-16.0) g/dL Hct 44.8 (37-47) % MCV 90.1 (80-100) fL MCH 30.2 (25-34) pg MCHC 33.5 (32-36) g/dL RDW Std Deviation 43.6 (36.4-46.3) fL RDW Coeff of Roro 13.2 (11.5-14.5) % Plt Count 278 (130-400) K/uL MPV 10.3 (7.4-10.4) fL Immature Gran % (Auto) 0.2 % Neut % (Auto) 77.6 % Lymph % (Auto) 17.6 % [place] % (Auto) 4.2 % Eos % (Auto) 0.2 % Baso % (Auto) 0.2 % Neut # (Auto) 8.26 H (1.4-6.5) K/uL Lymph # (Auto) 1.87 (1.2-3.4) K/uL [place] # (Auto) 0.45 (0.11-0.59) K/uL Eos # (Auto) 0.02 (0-0.5) K/uL Baso # (Auto) 0.02 (0-0.2) K/uL Immature Gran # (Auto) 0.02 (0.00-0.02) K/uL Sodium 142 (136-145) mmol/L Potassium 3.5 (3.5-5.1) mmol/L Chloride 106 (98-107) mmol/L Carbon Dioxide 31 (21-32) mmol/L Anion Gap 4.0 (3-11) BUN 12 (7-18) mg/dl Creatinine 0.97 (0.6-1.2) mg/dl Est Cr Clr Drug Dosing 97.8 ml/min Est GFR ( Amer) 79.5 ml/min Est GFR (Non-Af Amer) 68.6 ml/min BUN/Creatinine Ratio 12.8 (10-20) Glucose 118 H (70-99) mg/dl POC Glucose (70-99) mg/dl Estimat Average Glucose mg/dl Hemoglobin A1c (4.5-5.6) % Calcium 10.2 H (8.5-10.1) mg/dl Magnesium (1.8-2.4) mg/dl Total Bilirubin 0.6 (0.2-1) mg/dl AST 8 L (15-37) U/L ALT 12 (12-78) U/L Alkaline Phosphatase 109 (45-117) U/L Total Protein 7.3 (6.4-8.2) gm/dl Albumin 3.5 (3.4-5.0) gm/dl Globulin 3.8 (2.5-4.0) gm/dl Albumin/Globulin Ratio 0.9 (0.9-2) COVID-19 Eval Order Covid19 at [facility] SARS-CoV-2 (PCR) (Negative) (1) Back strain Encounter type: initial encounter Qualified Code(s): S39.012A - Strain of muscle, fascia and tendon of lower back, initial encounter
--- NOTE | 2020-11-17 16:51 | Discharge Summary ---
Date of Service November 17, 2020 Admission HPI Per Admitting Provider This is a 50-year-old female with past medical history significant for hypothyroidism, prediabetes, irritable bowel syndrome, fibromyalgia, bulging lumbar disk, migraine, chronic pain syndrome, opiate dependence with opioid induced disorder, generalized anxiety disorder, moderate recurrent major depression, who presents with severe back pain. The patient was in the ER yesterday because she fell on her sister's porch approximately 5 steps and came to the ER. She had multiple studies including thoracic spine MRI, cervical spine MRI, lumbar spine MRI, thoracic spine CT, lumbar spine CT, head CT, chest CT, cervical spine CT, and abdominal CT and pelvis, all were unremarkable and the patient was sent home. Her in the room states that she could not ambulate today because of the severe pain, had to assisted her. She seemed to near pass out with pain and she has lot of nausea and she could not take her oral pills. That is why they came here. Hemodynamically stable. Labs look okay. The patient may need physical therapy and may need placement for ambulatory dysfunction. So we were called for admission. Currently, complains of back pain, could not lift her legs. Having feelings of tingliness in the lower extremities. No incontinence. Denies chest pain, no shortness of breath, no cough, no fever, no chills, no headache, no blurred vision, no earache, no runny nose, no sore throat. Appetite is okay, but she is feeling lot of nausea today. No abdominal pain, no diarrhea or constipation. Normal bladder movements. Admission Exam Per Admitting Provider GENERAL: The patient is obese, not in acute distress. VITAL SIGNS: Temperature 37.2, pulse 76, respiratory rate 17, blood pressure 122/86, oxygen 93% on room air. HEENT: Pupils equal, round and reactive to light. Oral mucosa moist. NECK: No JVD or neck masses. CARDIOVASCULAR: S1, S2 heard. Regular rate and rhythm. No murmur, no gallop. RESPIRATORY: Normal AP diameter. No accessory muscle use. No wheezing, no crackles. ABDOMEN: Soft, bowel sounds present, nontender, nondistended. CENTRAL NERVOUS SYSTEM: Alert and awake. Speech is clear. Insight is good. No facial droop. Obeys simple commands. EXTREMITIES: Lower extremities, no edema or erythema seen. Painful movements of the lower extremities. MUSCULOSKELETAL: Straight leg test positive in both lower extremities. Principal Diagnosis Back pain Discharge Exam GENERAL: The patient is obese, not in acute distress. HEENT: NC/AT, Pupils equal, round and reactive to light. Oral mucosa moist. NECK: No JVD or neck masses. CARDIOVASCULAR: S1, S2 heard. Regular rate and rhythm. No murmur, no gallop. RESPIRATORY: Normal AP diameter. No accessory muscle use. No wheezing, no crackles. ABDOMEN: Soft, bowel sounds present, nontender, nondistended. NEURO: Alert and awake. Speech is clear. No facial asymmetry. Moves all extremities spontaneously. EXTREMITIES: Lower extremities, no edema or erythema seen. Painful movements of the lower extremities. SKIN; war, dry Discharge Data Allergies Allergy/AdvReac Type Severity Reaction Status Date / Time gabapentin Allergy Severe anaphylaxis Verified 11/16/20 21:24 tramadol Allergy Severe ANAPHYLAXIS Verified 11/16/20 21:24 chlorpheniramine Allergy Intermediate SHORTNESS Verified 11/16/20 21:24 OF BREATH guaifenesin Allergy Intermediate SHORTNESS Verified 11/16/20 21:24 OF BREATH metoclopramide AdvReac Intermediate anxiety Verified 11/16/20 21:24 Consultations 11/16/20 22:13 ED Decision to Admit Stat 11/17/20 08:39 Consult Pain Management Routine 11/17/20 16:29 Burn CD for patient Stat Ordered Studies 11/17/20 02:01 CT lumbar spine wo con Urgent IMPRESSION: 1. No osseous abnormality is identified involving the lumbar spine. No change from studies dated 11/15/2020. 2. Posterior disc bulge is again seen at L4-L5. CT pelvis wo con Urgent IMPRESSION: No fractures within the pelvis or hips. Cervical spine MRI IMPRESSION: 1. No fracture or subluxation within the cervical spine. 2. Minor degenerative changes as described above. 3. Normal cervical spinal cord. Lumbar spine MRI IMPRESSION: 1. No fracture or subluxation within the lumbar spine. 2. Small right paracentral focal disc protrusion at L4-5 which abuts but does not displace the transiting right L5 nerve root. Thoracic spine MRI IMPRESSION: No acute thoracic spine fracture or subluxation. Hospital Course (1) Back strain: This is a 50-year-old female who presents with severe back pain and ambulatory dysfunction. 1. Severe back pain and ambulatory dysfunction: The patient fell at sister's porch yesterday and multiple imaging studies were done in the ER yesterday, which were unremarkable. The patient was sent home, but complains of tingliness in lower extremities and ambulatory dysfunction and a lot of pain in the back. Repeated a CT of lumbar spine and pelvis CT scan -no fracture, unremarkable. Orthospine consulted by ER physician, patient to be seen next day however patient canceled. PT, OT - recommend wheeled walker, patient received a prescription IV pain meds p.r.n. Pain management consult.Social service to help with discharge planning. Patient tells me that she has a appointment scheduled with orthospine in [place] and also with her pain management doctor, Dr. Barr Asked radiology to push images/MRI spine to [facility] Will also provide patient with a CD, with her images, for her providers to review 2. Chronic pain syndrome: Continue her home pain medications. 3. History of depression: Continue duloxetine. 4. Prediabetes: On metformin, will hold. Placed on insulin sliding scale. Follow HbA1c level. Diabetic diet. 5. Hypothyroidism: On Synthroid. 6. Deep venous thrombosis prophylaxis: Placed on Lovenox. DISPOSITION: Plan to discharge home with close follow-up with family medicine, orthospine, and pain management Total Time Total Time Spent Total Time Spent (In Minutes): 35 Total Time Includes: Examination of the Patient, Discharge Planning, Medication Reconciliation and Communication With Other Providers Discharge Plan Discharge Items Patient Disposition: Home - Self-Care Reason For Visit: BACK PAIN Discharge Diagnosis: Back pain Activity: Per Instructions section Non-emergency contact: Primary Care Provider and Specialist Call non-emergency contact if: you have any medication questions and your symptoms worsen Follow-up/Referrals: Dajuan Bell, [Primary Care Provider] - 11/25/20 11:00 am Diet: Carb Consistent or DM2 and Heart Healthy Addtl Attending Provider Instructions: As discussed, follow-up with your family physician, pain management doctor and orthopedic surgeon. Your MRI images of your spine were sent to [facility]. we will also provide you with a CD with these images for your other healthcare providers to review. Prescription for a wheeled walker was also provided to you. For pain, continue using your morphine. Take Tylenol up to 3000 mg a day, it is recommended to take 1000 mg 3 times a day. You can also use lidocaine patch, which you can obtain [id number] , often under the name Salonpas. Pending Studies at Discharge: No Stand-Alone Forms: My [facility], Smoking Cessation Medications and DC Order Prescriptions: Continued furosemide [Lasix] 40 mg Tablet 40 mg PO QAM PRN (Reason: Edema) RF: 0 nitroglycerin [Nitrostat] 0.4 mg Tablet, Sublingual 0.4 mg Sublingual DIRECTED PRN (Reason: Chest Pain) RF: 0 morphine 15 mg tablet extended release 15 mg PO TID RF: 0 morphine 15 mg tablet 15 mg PO TID PRN (Reason: Pain) RF: 0 levothyroxine 125 mcg tablet 250 mcg PO QAM RF: 0 aspirin [Aspirin Low Dose] 81 mg Tablet,Delayed Release (Dr/Ec) 81 mg PO QAM RF: 0 metformin 500 mg tablet extended release 24 hr 500 mg PO DAILY RF: 0 duloxetine 60 mg capsule,delayed release(DR/EC) 60 mg PO DAILY RF: 0 polyethylene glycol 3350 [Miralax] 17 gram/dose Powder 17 g PO DAILY PRN (Reason: Constipation) RF: 0 duloxetine 30 mg capsule,delayed release(DR/EC) 30 mg PO DAILY RF: 0 tizanidine 2 mg tablet 2 mg PO Q6H PRN (Reason: MUSCLE SPASMS) RF: 0 acetaminophen [Tylenol Extra Strength] 500 mg Tablet 1,000 mg PO Q6H PRN (Reason: Pain) RF: 0 ibuprofen 200 mg Tablet 400 mg PO Q6H PRN (Reason: Pain) RF: 0 Discharge Orders: Discharge Order (Routine); Ordered 11/17/20 Ordered By: Michael Corrales Admission Data Admit Date/Time: 11/17/20 00:44 Attending Provider: Michael Corrales Admit Provider: Edward Mahoney Primary Care Provider: Dajuan Bell Other Providers: Edward Mahoney ; Ant Cowart Other Interventions: Discharge Summary Assessment (RN) Last Done: 11/17/20 16:54
== END 2020-11-17 17:40 | disposition home or self-care (01) ==
LOC: 3W 20:16 → ED 20:16 → 3W 11-17 01:34

== ENCOUNTER 2020-11-18 16:11 | Observation (INO) ==
[2020-11-18] MEDS ORDERED: ONDANSETRON INJ 2 MG/ML 2 ML VIAL IV STA (18:42)
[2020-11-18] MEDS ORDERED: HYDROmorphone INJ 0.5 MG/0.5 ML SYR IV STA (18:42)
[2020-11-18] MEDS ORDERED: HYDROmorphone INJ 1 MG/ML SYRINGE ONE (18:47)
--- NOTE | 2020-11-18 18:50 | Emergency Department Note ---
History of Present Illness General Chief complaint: Fall Stated complaint: fall on monday, back pain, tingling in legs Time Seen by Provider: 11/18/20 18:32 Source: patient Mode of arrival: ambulatory Limitations: no limitations History of Present Illness Provider complaint: Back pain Maximum Pain Intensity: 9 This is a 50-year-old female with a history of chronic back pain due to sciatica presenting with worsening of her back pain. The patient reports that she fell down some of her sister steps from her porch about 5 steps on Monday. She was evaluated here on Monday and discharged after multiple studies. She came back on the and ultimately was admitted for pain control. She had multiple studies including MRIs and CAT scans which were negative and she was sent home on the . She states that she has been unable to manage her pain as she continues to have pain in her back starting from her shoulder blades down to her lower back. And she has vibrating pain down both of her legs. She states that she has been unable to keep anything down due to nausea and vomiting. She is typically on narcotics p.o daily. No new complaints of pain. Home Medications Medication Instructions Recorded Confirmed Type furosemide [Lasix] 40 mg PO QAM PRN 03/17/18 11/18/20 History nitroglycerin [Nitrostat] 0.4 mg SUBLINGUAL DIRECTED PRN 03/17/18 11/18/20 History morphine 15 mg PO TID 10/06/18 11/18/20 History levothyroxine 250 mcg PO QAM 12/28/19 11/18/20 History morphine 15 mg PO TID 12/28/19 11/18/20 History aspirin [Aspirin Low Dose] 81 mg PO QAM 09/23/20 11/18/20 History duloxetine 60 mg PO DAILY 09/24/20 11/18/20 History metformin 500 mg PO DAILY 09/24/20 11/18/20 History duloxetine 30 mg PO DAILY 11/15/20 11/18/20 History polyethylene glycol 3350 [Miralax] 17 g PO DAILY PRN 11/15/20 11/18/20 History acetaminophen [Tylenol Extra 1,000 mg PO Q6H PRN 11/16/20 11/18/20 History Strength] ibuprofen 400 mg PO Q6H PRN 11/16/20 11/18/20 History tizanidine 2 mg PO Q6H PRN 11/16/20 11/18/20 History Allergies Allergy/AdvReac Type Severity Reaction Status Date / Time gabapentin Allergy Severe anaphylaxis Verified 11/18/20 19:18 tramadol Allergy Severe ANAPHYLAXIS Verified 11/18/20 19:18 chlorpheniramine Allergy Intermediate SHORTNESS Verified 11/18/20 19:18 OF BREATH guaifenesin Allergy Intermediate SHORTNESS Verified 11/18/20 19:18 OF BREATH metoclopramide AdvReac Intermediate anxiety Verified 11/18/20 19:18 Past Med/Surg History Medical History (Updated 11/18/20 @ 19:47 by Willard Euceda DO) Anxiety Atelectasis Cardiomyopathy 2014 - thought to be stress induced, reported normal dobutamine stress and echo after Chronic back pain Chronic pain syndrome Depression Fibromyalgia H/O traumatic brain injury Hypokalemia Hypothyroidism (Unknown) IBS (irritable bowel syndrome) Migraines Opiate dependence Tobacco abuse Surgical History Bilateral tubal ligation (Unknown) section (Unknown) H/O colonoscopy "2006 path normal" H/O cystoscopy H/O esophagogastroduodenoscopy "2006 path normal" Hx of appendectomy Hx of cholecystectomy Hx of hysterectomy S/P lymph node biopsy "deep cervical inflammatory node 2007" Family History Other Diabetes Hypertension Thyroid disorder Social History Smoking Status: Current every day smoker Tobacco Type: Cigarettes Cigarettes Per Day: 10; Second Hand Exposure: Yes; Hx Alcohol Use: No Hx Substance Use: No Preferred Language: [place] Communication Ability: Effective Visual Impairment: Partially Limited Process Cheese Cooker Required: No Beliefs That Will Affect Care: None marital status: Current Living Situation: Spouse and Family Feels Safe at Home: Yes Assistive Devices: Walker Review of Systems A total of 10 systems reviewed and were otherwise negative Physical Exam Vital Signs Vital Signs - 24 hr 11/18/20 16:14 11/18/20 18:43 Temperature 36.7 C Temperature Source Temporal Artery Scan Pulse Rate 86 87 Pulse Rhythm Regular Regular Respiratory Rate 18 16 Respiratory Effort / Characteristics Non-Labored Spontaneous Respiratory Depth Normal Respiratory Pattern Regular Blood Pressure 136/90 Blood Pressure Mean 105 Pulse Oximetry 98 97 Oxygen Delivery Method Room Air Room Air Sepsis Recent Fever Within 48 Hours No Sepsis New/Unexplained Change in Mental Status No Sepsis Action Taken by Nursing No Action Required CONSTITUTIONAL/VITAL SIGNS: Reviewed / noted above. GENERAL: Non-toxic in appearance. INTEGUMENTARY: Warm, dry, and [place]. HEAD: Normocephalic. EYES: without scleral icterus or trauma. ENT/OROPHARYNX: clear and moist. LYMPHADENOPATHY/NECK: Is supple without lymphadenopathy or meningismus. RESPIRATORY: Lungs clear and equal. CARDIOVASCULAR: Regular rate and rhythm. GI/ABDOMEN: Soft and nontender. No organomegaly or pulsatile mass. No rebound or guarding. Normal bowel sounds. EXTREMITIES: Warm and well perfused. BACK: No CVA tenderness. There are no obvious injuries to the patient's back with regards to any bruising or abrasions. She states that she fell onto her back down the steps. She does have tenderness to palpation of the soft tissue superficially. NEUROLOGICAL: Intact without focal deficits. PSYCHIATRIC: normal affect. MUSCULOSKELETAL: Normally developed with good muscle tone. TRIAGE NURSING DOCUMENTATION REVIEWED. Course Administered Medications Discontinued Medications Hydromorphone HCl (Hydromorphone Inj 0.5 Mg/0.5 Ml Syr) 1 mg IV NOW STA Stop: 11/18/20 18:43 Last Admin: 11/18/20 19:02 Dose: 1 mg Documented by: [id number] Hydromorphone HCl (Hydromorphone Inj 1 Mg/Ml Syringe) Confirm Administered Dose 1 mg .ROUTE .STK-MED ONE Stop: 11/18/20 18:48 Last Admin: 11/18/20 18:52 Dose: Not Given Documented by: [id number] Ondansetron HCl (Ondansetron Inj 2 Mg/Ml 2 Ml Vial) 4 mg IV NOW STA Stop: 11/18/20 18:43 Last Admin: 11/18/20 19:03 Dose: 4 mg Documented by: [id number] Medical Decision Making Differential Diagnosis Differential includes narcotic withdrawal, pancreatitis, chronic pain issues, contusions, cholecystitis Medical Records Attestation: I reviewed the patient's medical records. Home Medications Current Medication List: was personally reviewed by me Laboratory Data Attestation: I reviewed the patient's lab results. Result diagrams: 11/18/20 18:51 11/18/20 18:51 Lab Results 11/18/20 11/18/20 Range/Units 18:51 18:51 WBC 11.75 H (4.8-10.8) K/uL RBC 5.30 (4.2-5.4) M/uL Hgb 16.3 H (12.0-16.0) g/dL Hct 47.5 H (37-47) % MCV 89.6 (80-100) fL MCH 30.8 (25-34) pg MCHC 34.3 (32-36) g/dL RDW Std Deviation 42.7 (36.4-46.3) fL RDW Coeff of Roro 13.0 (11.5-14.5) % Plt Count 296 (130-400) K/uL MPV 10.4 (7.4-10.4) fL Immature Gran % (Auto) 0.2 % Neut % (Auto) 77.6 % Lymph % (Auto) 17.3 % [place] % (Auto) 4.3 % Eos % (Auto) 0.4 % Baso % (Auto) 0.2 % Neut # (Auto) 9.13 H (1.4-6.5) K/uL Lymph # (Auto) 2.03 (1.2-3.4) K/uL [place] # (Auto) 0.50 (0.11-0.59) K/uL Eos # (Auto) 0.05 (0-0.5) K/uL Baso # (Auto) 0.02 (0-0.2) K/uL Immature Gran # (Auto) 0.02 (0.00-0.02) K/uL Sodium 142 (136-145) mmol/L Potassium 3.3 L (3.5-5.1) mmol/L Chloride 107 (98-107) mmol/L Carbon Dioxide 27 (21-32) mmol/L Anion Gap 7.0 (3-11) BUN 11 (7-18) mg/dl Creatinine 0.92 (0.6-1.2) mg/dl Est Cr Clr Drug Dosing 101.7 ml/min Est GFR ( Amer) 84.7 ml/min Est GFR (Non-Af Amer) 73.1 ml/min BUN/Creatinine Ratio 11.5 (10-20) Glucose 109 H (70-99) mg/dl Calcium 10.9 H D (8.5-10.1) mg/dl AST 14 L (15-37) U/L ALT 15 (12-78) U/L Albumin 3.8 (3.4-5.0) gm/dl Lipase 114 (73-393) U/L MDM Narrative Patient presents with ongoing pain since she had a fall associated with nausea and vomiting that is causing her to not be able to take her chronic narcotics for her chronic pain issues. She presents with a bag of some vomitus. She appears to be uncomfortable and worse though with light palpation of the soft tissues of the back. There are no obvious abrasions or bruises on my exam. The patient's laboratory studies including CBC, chemistry panel and lipase were unremarkable. The patient was told the results of the test. She was treated with IV Dilaudid, IV Zofran and IV Compazine. Because of her ongoing symptoms, she will be seen by the hospitalist for further evaluation and care. Impression & Plan Nausea & vomiting, Acute exacerbation of chronic low back pain Discharge Plan Visit Data Chief Complaint: Fall Stated Complaint: fall on monday, back pain, tingling in legs ED Provider: Willard Euceda Discharge Problem: Nausea & vomiting, Acute exacerbation of chronic low back pain Patient Disposition: Home - Self-Care Forms Stand Alone Forms: [facility], Virtual Emergency Department, Important Visit Information Prescriptions Prescriptions: No Action furosemide [Lasix] 40 mg Tablet 40 mg PO QAM PRN (Reason: Edema) RF: 0 nitroglycerin [Nitrostat] 0.4 mg Tablet, Sublingual 0.4 mg Sublingual DIRECTED PRN (Reason: Chest Pain) RF: 0 morphine 15 mg tablet extended release 15 mg PO TID RF: 0 morphine 15 mg tablet 15 mg PO TID RF: 0 levothyroxine 125 mcg tablet 250 mcg PO QAM RF: 0 aspirin [Aspirin Low Dose] 81 mg Tablet,Delayed Release (Dr/Ec) 81 mg PO QAM RF: 0 metformin 500 mg tablet extended release 24 hr 500 mg PO DAILY RF: 0 duloxetine 60 mg capsule,delayed release(DR/EC) 60 mg PO DAILY RF: 0 polyethylene glycol 3350 [Miralax] 17 gram/dose Powder 17 g PO DAILY PRN (Reason: Constipation) RF: 0 duloxetine 30 mg capsule,delayed release(DR/EC) 30 mg PO DAILY RF: 0 tizanidine 2 mg tablet 2 mg PO Q6H PRN (Reason: MUSCLE SPASMS) RF: 0 acetaminophen [Tylenol Extra Strength] 500 mg Tablet 1,000 mg PO Q6H PRN (Reason: Pain) RF: 0 ibuprofen 200 mg Tablet 400 mg PO Q6H PRN (Reason: Pain) RF: 0 Referrals Referrals: Dajuan Bell DO [Primary Care Provider] -
[2020-11-18 19:03] LABS: Basophils # (auto) 0.02 K/uL (0-0.2); Basophils % (auto) 0.2 %; Eosinophils # (auto) 0.05 K/uL (0-0.5); Eosinophils % (auto) 0.4 %; Hematocrit (blood only) 47.5 % (37-47); Hemoglobin 16.3 g/dL (12.0-16.0); Immature Granulocytes # (auto) 0.02 K/uL (0.00-0.02); Immature Granulocytes % (auto) 0.2 %; Lymphocytes # (auto) 2.03 K/uL (1.2-3.4); Lymphocytes % (auto) 17.3 %; Mean Corpuscular Hemoglobin 30.8 pg (25-34); Mean Corpuscular Hgb Conc 34.3 g/dL (32-36); Mean Corpuscular Volume 89.6 fL (80-100); Mean Platelet Volume 10.4 fL (7.4-10.4); Monocytes % (auto) 4.3 %; Neutrophils # (auto) 9.13 K/uL (1.4-6.5); Neutrophils % (auto) 77.6 %; Platelet Count 296 K/uL (130-400); RDW Standard Deviation 42.7 fL (36.4-46.3); White Blood Count 11.75 K/uL (4.8-10.8)
[2020-11-18 19:28] LABS: Albumin Level 3.8 gm/dl (3.4-5.0); BUN Creatinine Ratio 11.5 (10-20); Calcium 10.9 mg/dl (8.5-10.1); Creatinine Clr Calc Pharmacy 101.7 ml/min; Est GFR (African American) 84.7 ml/min; Est GFR (Non-African American) 73.1 ml/min; Potassium 3.3 mmol/L (3.5-5.1)
[2020-11-18] MEDS ORDERED: HYDROmorphone INJ 1 MG/ML SYRINGE IV STA (19:43)
[2020-11-18] MEDS ORDERED: PROCHLORPERAZINE 2 ML IV ONE (19:43)
[2020-11-18 19:48] LABS: Albumin Globulin Ratio 0.9 (0.9-2); Bilirubin,Total 0.6 mg/dl (0.2-1); Globulin 4.4 gm/dl (2.5-4.0); Total Protein 8.2 gm/dl (6.4-8.2)
[2020-11-18] MEDS ORDERED: POTASSIUM CHLORIDE 40 MEQ in D5W AND 1/2NSS 1,000 ML/1,000 ML BAG IV ONE (19:55)
[2020-11-18] MEDS ORDERED: POTASSIUM CHLORIDE 40 MEQ in LACTATED RINGER'S 1,000 ML IV ONE (19:59)
[2020-11-18] MEDS ORDERED: POTASSIUM CHLORIDE CRTAB 20 MEQ TABCR PO STA (20:33)
--- NOTE | 2020-11-18 20:34 | History & Physical Report ---
Date of Service November 18, 2020 Assessment & Plan (1) Intractable back pain: Recent traumatic fall Lumbar radiculopathy symptoms, L4-L5 focal disc protrusion on recent MRI Chronic pain/fibromyalgia on narcotics Hypokalemia secondary to emesis secondary to uncontrolled pain as per patient Recurrent hypercalcemia Possible primary hyperparathyroidism given hypophosphatemia Noted on review of outpatient lab work from April 2016 No prior work-up hx cardiomyopathy as per records (EF 60 to 65%, TTE 2019), patient on the dry side Anxiety/mood disorder, symptoms at baseline as per patient Hypothyroidism, euthyroid as of today's TSH Prediabetes, hemoglobin A1c of 5.09 November 2020 Ongoing tobacco abuse OBS [facility] Spine consultation (Patient and state that they prefer to be transferred to [facility] if surgical intervention recommended. Outpatient appointment already scheduled with Dr. Aguayo next week.) IVF, replace potassium Replace phosphorus, check intact PTH Nephrology consult Re: Recurrent hypercalcemia Nicotine patch DVT prophylaxis. SCDs RE possible surgical intervention Full code Text document was generated using [employer] voice recognition software. It may contain grammatical or spelling errors. Kindly contact undersigned for clarification of any documentation item in question. History of Present Illness Chief Complaint: Uncontrolled back pain, nausea, vomiting Primary Care Provider: Dajuan Bell DO History obtained from patient, family, and records. Medical history significant for chronic pain/fibromyalgia as per records, IBS as per records, anxiety/mood disorder, past history cardiomyopathy (TTE 60 to 65%, TTE 2019), hypothyroidism, prediabetes, ongoing tobacco abuse. Last confinement yesterday for severe low back pain with leg weakness following a fall from her sister's porch 3 days ago. Lumbar spine MRI showed small right paracentral focal disc protrusion at L4-5 which abuts but does not displace transiting right L5 nerve root. Patient discharged from ER 3 days ago. Patient returned to ER 2 days ago for intractable pain and was admitted for a day. Patient and claimed patient was still uncomfortable at time of discharge yesterday. Outpatient [facility] Neurosurgery spine referral scheduled for next week. Intractable low back pain with radiation to the right lower extremity upon return home. No unusual weakness, bowel/bladder incontinence. No fever, no chills. Nausea, vomiting symptoms without abdominal pain or constipation as per patient. Patient denies chest pain, S OB. Patient brought by to the ER because of intractable symptoms. Medical History as above : Surgical History : Cervical lymph node biopsy, section, cystoscopy, appendectomy, BTL, partial hysterectomy, cholecystectomy Family History : Crohn's disease Personal/Social history : One pack daily, no EtOH intake, disabled Allergies Allergy/AdvReac Type Severity Reaction Status Date / Time gabapentin Allergy Severe anaphylaxis Verified 11/18/20 19:18 tramadol Allergy Severe ANAPHYLAXIS Verified 11/18/20 19:18 chlorpheniramine Allergy Intermediate SHORTNESS Verified 11/18/20 19:18 OF BREATH guaifenesin Allergy Intermediate SHORTNESS Verified 11/18/20 19:18 OF BREATH metoclopramide AdvReac Intermediate anxiety Verified 11/18/20 19:18 Home Medications Medication Instructions Recorded Confirmed Type furosemide [Lasix] 40 mg PO QAM PRN 03/17/18 11/18/20 History nitroglycerin [Nitrostat] 0.4 mg SUBLINGUAL DIRECTED PRN 03/17/18 11/18/20 History morphine 15 mg PO TID 10/06/18 11/18/20 History levothyroxine 250 mcg PO QAM 12/28/19 11/18/20 History morphine 15 mg PO TID 12/28/19 11/18/20 History aspirin [Aspirin Low Dose] 81 mg PO QAM 09/23/20 11/18/20 History duloxetine 60 mg PO DAILY 09/24/20 11/18/20 History metformin 500 mg PO DAILY 09/24/20 11/18/20 History duloxetine 30 mg PO DAILY 11/15/20 11/18/20 History polyethylene glycol 3350 [Miralax] 17 g PO DAILY PRN 11/15/20 11/18/20 History acetaminophen [Tylenol Extra 1,000 mg PO Q6H PRN 11/16/20 11/18/20 History Strength] ibuprofen 400 mg PO Q6H PRN 11/16/20 11/18/20 History tizanidine 2 mg PO Q6H PRN 11/16/20 11/18/20 History Past Med/Surg History Medical History (Updated 11/19/20 @ 08:27 by Cynthia Hoyt MD) Anxiety Atelectasis Cardiomyopathy 2014 - thought to be stress induced, reported normal dobutamine stress and echo after Chronic back pain Chronic pain syndrome Depression Fibromyalgia H/O traumatic brain injury Hypokalemia Hypothyroidism (Unknown) IBS (irritable bowel syndrome) Migraines Opiate dependence Tobacco abuse Surgical History Bilateral tubal ligation (Unknown) section (Unknown) H/O colonoscopy "2006 path normal" H/O cystoscopy H/O esophagogastroduodenoscopy "2006 path normal" Hx of appendectomy Hx of cholecystectomy Hx of hysterectomy S/P lymph node biopsy "deep cervical inflammatory node 2007" Family History Other Diabetes Hypertension Thyroid disorder Social History Smoking Status: Current every day smoker Tobacco Type: Cigarettes Cigarettes Per Day: 10; Second Hand Exposure: Yes; Do You Dip or Chew Tobacco: No; Tobacco Cessation Education Requested by Patient: No Hx Alcohol Use: No Hx Substance Use: No Preferred Language: [place] Communication Ability: Effective Visual Impairment: Partially Limited Reimbursement Spec Required: No Beliefs That Will Affect Care: None marital status: Current Living Situation: Spouse and Family Other Information That Helps Us Care for You: No Feels Safe at Home: Yes Safety Concerns: Feels Safe At This Time Assistive Devices: Walker Review of Systems Review of Systems: As per HPI, all 10 systems reviewed, all other ROS negative Physical Exam Physical Exam: GENERAL: uncomfortable, obese, no respiratory distress SKIN: Normal color, warm HEENT: [place] palpebral conjunctivae, no ptosis, dry buccal mucosa NECK : Supple, short neck, no tenderness CHEST : Decreased breath sounds, no tenderness HEART : RRR, no obvious murmurs ABDOMEN: Some distention, nontender BACK : Low back tenderness, straight leg raise test R>L EXTREMITIES : No LE swelling/tenderness, no other conspicuous deformities noted NEUROLOGIC : Coherent, no facial asymmetry, no other gross focality Results & Data Results & Data ([facility]) Vital Signs (Past 12 Hours) Vital Signs Temp Pulse Resp BP Pulse Ox 11/18/20 18:43 87 16 97 11/18/20 16:14 36.7 C 86 18 136/90 98 Laboratory Results Laboratory Results WBC 11.75 K/uL (4.8-10.8) H 11/18/20 18:51 RBC 5.30 M/uL (4.2-5.4) 11/18/20 18:51 Hgb 16.3 g/dL (12.0-16.0) H 11/18/20 18:51 Hct 47.5 % (37-47) H 11/18/20 18:51 MCV 89.6 fL (80-100) 11/18/20 18:51 MCH 30.8 pg (25-34) 11/18/20 18:51 MCHC 34.3 g/dL (32-36) 11/18/20 18:51 RDW Std Deviation 42.7 fL (36.4-46.3) 11/18/20 18:51 RDW Coeff of Roro 13.0 % (11.5-14.5) 11/18/20 18:51 Plt Count 296 K/uL (130-400) 11/18/20 18:51 MPV 10.4 fL (7.4-10.4) 11/18/20 18:51 Immature Gran % (Auto) 0.2 % 11/18/20 18:51 Neut % (Auto) 77.6 % 11/18/20 18:51 Lymph % (Auto) 17.3 % 11/18/20 18:51 [place] % (Auto) 4.3 % 11/18/20 18:51 Eos % (Auto) 0.4 % 11/18/20 18:51 Baso % (Auto) 0.2 % 11/18/20 18:51 Neut # (Auto) 9.13 K/uL (1.4-6.5) H 11/18/20 18:51 Lymph # (Auto) 2.03 K/uL (1.2-3.4) 11/18/20 18:51 [place] # (Auto) 0.50 K/uL (0.11-0.59) 11/18/20 18:51 Eos # (Auto) 0.05 K/uL (0-0.5) 11/18/20 18:51 Baso # (Auto) 0.02 K/uL (0-0.2) 11/18/20 18:51 Immature Gran # (Auto) 0.02 K/uL (0.00-0.02) 11/18/20 18:51 Sodium 142 mmol/L (136-145) 11/18/20 18:51 Potassium 3.3 mmol/L (3.5-5.1) L 11/18/20 18:51 Chloride 107 mmol/L (98-107) 11/18/20 18:51 Carbon Dioxide 27 mmol/L (21-32) 11/18/20 18:51 Anion Gap 7.0 (3-11) 11/18/20 18:51 BUN 11 mg/dl (7-18) 11/18/20 18:51 Creatinine 0.92 mg/dl (0.6-1.2) 11/18/20 18:51 Est Cr Clr Drug Dosing 101.7 ml/min 11/18/20 18:51 Est GFR ( Amer) 84.7 ml/min 11/18/20 18:51 Est GFR (Non-Af Amer) 73.1 ml/min 11/18/20 18:51 BUN/Creatinine Ratio 11.5 (10-20) 11/18/20 18:51 Glucose 109 mg/dl (70-99) H 11/18/20 18:51 Calcium 10.9 mg/dl (8.5-10.1) H D 11/18/20 18:51 Total Bilirubin 0.6 mg/dl (0.2-1) 11/18/20 18:51 AST 14 U/L (15-37) L 11/18/20 18:51 ALT 15 U/L (12-78) 11/18/20 18:51 Alkaline Phosphatase 110 U/L (45-117) 11/18/20 18:51 Total Protein 8.2 gm/dl (6.4-8.2) 11/18/20 18:51 Albumin 3.8 gm/dl (3.4-5.0) 11/18/20 18:51 Globulin 4.4 gm/dl (2.5-4.0) H 11/18/20 18:51 Albumin/Globulin Ratio 0.9 (0.9-2) 11/18/20 18:51 Lipase 114 U/L (73-393) 11/18/20 18:51
[2020-11-18] MEDS ORDERED: PROMETHAZINE HCL 12.5 MG in SODIUM CHLORIDE 0.9% 50 ML IV PRN (20:36)
[2020-11-18 21:14] LABS: Magnesium 2.3 mg/dl (1.8-2.4); Phosphorus 1.9 mg/dl (2.5-4.9)
[2020-11-18 21:32] LABS: Thyroid Stimulating Hormone 0.555 uIu/ml (0.300-4.500)
[2020-11-18] MEDS: KETOROLAC TROMETHAMINE 15 MG/ML VIAL IV PRN (21:49)
[2020-11-18] MEDS ORDERED: tiZANidine HCL 4 MG TABLET PO PRN (23:47)
[2020-11-18] MEDS ORDERED: POTASSIUM CHLORIDE 40 MEQ in LACTATED RINGER'S 1,000 ML IV SCH (23:47)
[2020-11-18] MEDS ORDERED: IBUPROFEN 200 MG TAB PO PRN (23:47)
[2020-11-18] MEDS ORDERED: POLYETHYLENE (MIRALAX) 17 GM PACK PO PRN (23:47)
[2020-11-18] MEDS ORDERED: POTASSIUM PHOS 3 MMOL/1 ML INFUSION IV STA (23:47)
[2020-11-18] MEDS ORDERED: ACETAMINOPHEN 325 MG TAB PO PRN (23:47)
[2020-11-18] MEDS ORDERED: MoRPHine SULFATE CR 15 MG TABCR PO STA (23:58)
[2020-11-19] MEDS ORDERED: POTASSIUM PHOSPHATE 40 MMOL in SODIUM CHLORIDE 0.9% 1000ML 1,000 ML IV ONE (00:15)
[2020-11-19] MEDS: NICOTINE 14 MG/24 HR PATCH TD SCH ×2 (00:43→08:07)
[2020-11-19] MEDS: LIDOCAINE 5% 1 PATCH TD SCH ×2 (00:43→21:13)
[2020-11-19] MEDS ORDERED: POTASSIUM CHLORIDE 40 MEQ in SODIUM CHLORIDE 0.45 % 1,000 ML IV SCH (00:45)
[2020-11-19] MEDS: traZODone HCL 100 MG TAB PO PRN ×2 (00:51→22:06)
[2020-11-19] MEDS: SODIUM CHLORIDE 0.9% 1000ML 1,000 ML IV SCH ×2 (02:09→05:56)
[2020-11-19 04:54] LABS: BUN Creatinine Ratio 17.3 (10-20); Calcium 8.9 mg/dl (8.5-10.1); Creatinine Clr Calc Pharmacy 123.1 ml/min; Est GFR (African American) 106.8 ml/min; Est GFR (Non-African American) 92.1 ml/min; Phosphorus 4.8 mg/dl (2.5-4.9); Potassium 4.3 mmol/L (3.5-5.1)
[2020-11-19 05:18] LABS: Basophils # (auto) 0.02 K/uL (0-0.2); Basophils % (auto) 0.2 %; Eosinophils # (auto) 0.12 K/uL (0-0.5); Eosinophils % (auto) 1.3 %; Hematocrit (blood only) 40.2 % (37-47); Hemoglobin 13.4 g/dL (12.0-16.0); Immature Granulocytes # (auto) 0.01 K/uL (0.00-0.02); Immature Granulocytes % (auto) 0.1 %; Lymphocytes # (auto) 3.12 K/uL (1.2-3.4); Lymphocytes % (auto) 33.9 %; Mean Corpuscular Hemoglobin 30.5 pg (25-34); Mean Corpuscular Hgb Conc 33.3 g/dL (32-36); Mean Corpuscular Volume 91.4 fL (80-100); Mean Platelet Volume 10.3 fL (7.4-10.4); Monocytes # (auto) 0.54 K/uL (0.11-0.59); Monocytes % (auto) 5.9 %; Neutrophils # (auto) 5.38 K/uL (1.4-6.5); Neutrophils % (auto) 58.6 %; Platelet Count 234 K/uL (130-400); RDW Coefficient of Variation 13.1 % (11.5-14.5); RDW Standard Deviation 44.1 fL (36.4-46.3); White Blood Count 9.19 K/uL (4.8-10.8)
[2020-11-19] MEDS: LEVOTHYROXINE SODIUM 125 MCG TABLET PO SCH (05:56)
[2020-11-19] MEDS: MoRPHine SULFATE CR 15 MG TABCR PO SCH ×3 (08:07→21:13)
[2020-11-19] MEDS: DULoxetine HCL 60 MG CAP PO SCH (08:07)
[2020-11-19] MEDS: DULoxetine HCL 30 MG CAP PO SCH (08:07)
--- NOTE | 2020-11-19 08:08 | Orthopedic Consultation ---
Date of Consultation November 19, 2020 Assessment & Plan (1) Lower back pain: History of Present Illness Reason for Consultation: Please see [facility] Requesting Physician: Please see [facility] Attending Physician: Tavo Marks MD History of Present Illness Reason for Consult: back pain Patient is seen in consultation from Dr. Ivan Hebert for lower back pain. This occurred as result of fall down 4 steps on date:November 15. Patient's pain is focal to the lower back with radiation to upper back. The pain is worse with most activities and improved by lying down and rest. There is associated numbness and tingling that occurred after a fall, affecting bilateral lower extremities, and is now resolving. There is no subjective weakness. mechanical fall down 4 steps with lower back pain, temporary loss of function of lower extremity on November 15, 2020 (4 days ago). Subsequent workup unremarkable for instability or fracture, patient d/c'd with plan for clinic follow-up with me on November 16. Patient cancelled this appointment but ended up returning to ED on November 16 and November 18 with admission. history of prior spine injections by Dr. Barr, records not available no bowel incontinence no bladder retention no saddle paresthesia Physical Exam: Appearance: Well kept, normally developed Psych: Alert, normal mood and affect Eyes: Anicteric Cardiovascular: No lower extremity edema, extremities warm Respiratory: Breathing unlabored Skin: no rashes Musculoskeletal: grossly intact motor strength bilateral lower extremities. Neurologic: grossly reduced 1/2 sensation to light touch lower extremities. Reflexes are 2+ Babinski neg No clonus tenderness to palpation diffusely around mid and lower back no step deformity palpable Spine Imaging: x-ray standing lumbar spine today independently reviewed/interpreted. Findings: nil acute CT lumbar spine 11/17/20 independently reviewed/interpreted. Findings: nil acute reported as " 1. No osseous abnormality is identified involving the lumbar spine. No change from studies dated 11/15/2020. 2. Posterior disc bulge is again seen at L4-L5. " MRI lumbar spine 11/15/20 independently reviewed/interpreted. Findings: broad-based disc bulge L4-5 with minimal to mild central stenosis reported as " 1. No fracture or subluxation within the lumbar spine. 2. Small right paracentral focal disc protrusion at L4-5 which abuts but does not displace the transiting right L5 nerve root. " CT cervical/thoracic/lumbar 11/15/20 reported as "No acute cervical spine fracture or subluxation." "No acute thoracic spine fracture or subluxation." "No acute lumbar spine fracture or subluxation." MRI cervical/thoracic/lumbar 11/15/20 reported as " FINDINGS: No fracture or subluxation. The visualized posterior fossa is unremarkable. Disc spaces are preserved. Prevertebral soft tissues and the C1-C2 interval are intact. The cervical spine is normal and course, caliber, and signal intensity. C2-C3: Mild right-sided neural foraminal narrowing due to the uncovertebral hypertrophy. No significant central canal narrowing. C3-C4: No significant central canal narrowing. Mild bilateral neural foraminal narrowing due to the uncovertebral hypertrophy. C4-C5: Mild bilateral neural foraminal narrowing due to the uncovertebral hypertrophy. No significant central canal narrowing. C5-C6: Small broad-based posterior disc bulge without significant central canal or neural foraminal narrowing. No disc herniations. C6-C7: No significant central canal narrowing. There is mild left-sided neural foraminal narrowing due to the uncovertebral hypertrophy. C7-T1: No significant central canal or neural foraminal narrowing. IMPRESSION: 1. No fracture or subluxation within the cervical spine. 2. Minor degenerative changes as described above. 3. Normal cervical spinal cord. " " Unremarkable MRI of the thoracic spine. " " 1. No fracture or subluxation within the lumbar spine. 2. Small right paracentral focal disc protrusion at L4-5 which abuts but does not displace the transiting right L5 nerve root. " Assessment/Plan: Patient with below presentation and diagnosis. Discussed diagnosis, natural history, treatment recommendations based on best available evidence Presentation in keeping with [id number] low and mid-back pain after fall 4 days prior, with no red flags and no fractures/instability noted on MRI and CT scans Recommend - continue non-op management with multi-modal analgesics as per home team, PT - patient has an appointment with a [facility] neuroscience specialist next Monday previously made - patient is already connected with Dr. Barr for consideration for outpatient injections - patient aware of red flags requiring urgent follow-up including new neurological symptmos - f/u prn; patient has my office's contact information Thank you for allowing me to participate in the care of this patient, Cynthia Hoyt MD Spine Surgeon [facility] A total of 70 minutes was spent on patient care on November 15 and November 19 with regards to direct patient care, [id number] discussions with ER physician, review of imaging studies, and providing counseling to patient Thank you for the opportunity to participate in this patient's care. Please give me a call if there are any concerns or questions. Cynthia Hoyt MD Spine Surgeon [facility] [phone] Allergies Allergy/AdvReac Type Severity Reaction Status Date / Time gabapentin Allergy Severe anaphylaxis Verified 11/18/20 19:18 tramadol Allergy Severe ANAPHYLAXIS Verified 11/18/20 19:18 chlorpheniramine Allergy Intermediate SHORTNESS Verified 11/18/20 19:18 OF BREATH guaifenesin Allergy Intermediate SHORTNESS Verified 11/18/20 19:18 OF BREATH metoclopramide AdvReac Intermediate anxiety Verified 11/18/20 19:18 Home Medications Medication Instructions Recorded Confirmed Type furosemide [Lasix] 40 mg PO QAM PRN 03/17/18 11/18/20 History nitroglycerin [Nitrostat] 0.4 mg SUBLINGUAL DIRECTED PRN 03/17/18 11/18/20 History morphine 15 mg PO TID 10/06/18 11/18/20 History levothyroxine 250 mcg PO QAM 12/28/19 11/18/20 History morphine 15 mg PO TID 12/28/19 11/18/20 History aspirin [Aspirin Low Dose] 81 mg PO QAM 09/23/20 11/18/20 History duloxetine 60 mg PO DAILY 09/24/20 11/18/20 History metformin 500 mg PO DAILY 09/24/20 11/18/20 History duloxetine 30 mg PO DAILY 11/15/20 11/18/20 History polyethylene glycol 3350 [Miralax] 17 g PO DAILY PRN 11/15/20 11/18/20 History acetaminophen [Tylenol Extra 1,000 mg PO Q6H PRN 11/16/20 11/18/20 History Strength] ibuprofen 400 mg PO Q6H PRN 11/16/20 11/18/20 History tizanidine 2 mg PO Q6H PRN 11/16/20 11/18/20 History Patient History Medical History (Updated 11/19/20 @ 08:27 by Cynthia Hoyt MD) Anxiety Atelectasis Cardiomyopathy 2014 - thought to be stress induced, reported normal dobutamine stress and echo after Chronic back pain Chronic pain syndrome Depression Fibromyalgia H/O traumatic brain injury Hypokalemia Hypothyroidism (Unknown) IBS (irritable bowel syndrome) Migraines Opiate dependence Tobacco abuse Surgical History Bilateral tubal ligation (Unknown) section (Unknown) H/O colonoscopy "2006 path normal" H/O cystoscopy H/O esophagogastroduodenoscopy "2006 path normal" Hx of appendectomy Hx of cholecystectomy Hx of hysterectomy S/P lymph node biopsy "deep cervical inflammatory node 2007" Family History Other Diabetes Hypertension Thyroid disorder Social History Smoking Status: Current every day smoker Tobacco Type: Cigarettes Cigarettes Per Day: 10; Second Hand Exposure: Yes; Do You Dip or Chew Tobacco: No; Tobacco Cessation Education Requested by Patient: No Hx Alcohol Use: No Hx Substance Use: No Preferred Language: Luxembourgish Communication Ability: Effective Visual Impairment: Partially Limited Cycle Director Required: No Beliefs That Will Affect Care: None marital status: Current Living Situation: Spouse and Family Other Information That Helps Us Care for You: No Feels Safe at Home: Yes Safety Concerns: Feels Safe At This Time Assistive Devices: Walker Review of Systems Review of Systems: All systems reviewed & are unremarkable except as noted in HPI & below. Physical Exam Physical Exam: Please see HPI Results & Data ([facility]) Vital Signs (Past 12 Hours) Vital Signs Temp Pulse Pulse Resp BP BP Pulse Ox 11/19/20 07:31 36.7 C 59 L 16 127/75 90 11/18/20 23:45 36.8 C 66 16 122/78 99 11/18/20 23:26 51 L 18 120/70 93 Laboratory Results . Diagnostic Findings See History of Present Illness (HPI) section above. PG Care Time/CCT Total # of Minutes Spent Total Time Spent with Patient: Total time spent is greater than 50% in coordination of care (as documented) at patient's floor/unit and/or counseling patient: Coding Level of Care Code 45948 Initial Inpt Care Lvl 3 Diagnoses Lower back pain M54.5 Time Spent (min) 70
[2020-11-19 08:49] LABS: Appearance Urine Cloudy (Clear); Bacteria Urine Automated 1+ (Negative); Blood Urine Trace (Negative); Color Urine Dark Yellow; Epithelial Cell Urine Auto >30 /lpf (0-5); Glucose Urine UA Negative (Negative); Ketones Urine Negative (Negative); Leukocyte Esterase Urine Negative (Negative); Nitrite Urine Negative (Negative); Protein Urine Negative (Negative); Specific Gravity Urine 1.024 (1.000-1.030); Urobilinogen Urine Negative (Negative); pH Urine 5.5 (4.5-7.5)
[2020-11-19 09:22] LABS: Bilirubin Urine 1+ (Negative)
[2020-11-19] MEDS: KETOROLAC TROMETHAMINE 15 MG/ML VIAL IV PRN ×2 (10:10→22:37)
--- NOTE | 2020-11-19 11:01 | XRay Report ---
XR lumbar spine 2-3V CLINICAL HISTORY: standing films; lower back pain after fall COMPARISON STUDY: Lumbar spine MRI November 15, 2020. Lumbar spine CT November 17, 2020. FINDINGS: Slight rightward curvature of the lumbar spine is noted. Vertebral body heights are maintai keily. There is no acute fracture. There is no osseous lesion. Cholecystectomy clips are noted. Facet joints are intact. Disc spaces are preserved. IMPRESSION: 1. No acute lumbar spine fracture or subluxation. 2. Slight rightward curvature of the lumbar spine. ACT 112: Negative or not required by law. Electronically signed by: Yonas Carson M.D. 11/19/2020 10:59 AM
[2020-11-19] MEDS: MoRPHine SULFATE IR 15 MG TAB (IMMEDIATE RELEASE) PO PRN ×2 (12:26→18:02)
--- NOTE | 2020-11-19 12:49 | Consultation Report ---
NEPHROLOGY CONSULTATION NOTE DATE OF CONSULTATION: 11/19/2020 REASON FOR CONSULTATION: Hypercalcemia. HISTORY OF PRESENT ILLNESS: The patient is a 50-year-old female who appears to have chronic mild ____ for the last few years, but I did not see any serum calcium readings higher than 11. She has been in the 10 range for the last few years. It does not appear she takes any calcium supplement, vitamin D and it does not appear that this hypercalcemia issue has been worked up in the past. She presented to the hospital yesterday after an episode of fall, after which she has a lot of back pain. Lumbar spine MRI showed paracentral focal disk protrusion at the L4 and L5, which is causing the pain. Blood work done at the time of admission showed a serum calcium of 10.9 and she has received IV fluid, and with that, serum calcium has gone down to 8.9. Phosphorus was also low at 1.9, but this morning it is back to normal. She did receive IV phosphate. She is hemodynamically stable with perfectly normal blood pressure reading. Serum PTH was checked and it is not suppressed, in fact it is high at 193. PAST MEDICAL HISTORY: Includes anxiety, atelectasis, history of cardiomyopathy -- thought to be stress-induced. Reported normal dobutamine stress and echo afterwards. Chronic back pain, chronic pain syndrome, depression, fibromyalgia, history of traumatic brain injury, history of hypokalemia, history of hypothyroidism, irritable bowel syndrome, migraine, history of opiate dependence, tobacco abuse. PAST SURGICAL HISTORY: Includes tubal ligation, , colonoscopy, cystoscopy, appendicectomy, cholecystectomy, hysterectomy, lymph node biopsy. FAMILY HISTORY: Negative for renal disease or dialysis. SOCIAL HISTORY: Current everyday smoker. She is and lives with her spouse. She occasionally has to use walker for ambulation. HOME MEDICATIONS: List was reviewed in detail and includes Lasix 40 mg daily. It does not appear she was taking any calcium or vitamin D supplement. ALLERGIES: ALLERGY LIST WAS REVIEWED IN DETAIL. REVIEW OF SYSTEMS: Positive for back pain, which she has chronically but was worsened after the fall. Denies nausea, vomiting, chest pain, shortness of breath, orthopnea, PND, lower extremity edema, diarrhea, loss of appetite or major change in weight, so a total of 12 system was reviewed and is otherwise negative. PHYSICAL EXAMINATION: GENERAL: A middle-aged white female who is slightly obese. She is not in any overt respiratory distress. HEENT: Mucous membrane is moist. NECK: Supple. No jugular venous distention. CHEST: Bilaterally clear to auscultation. CARDIOVASCULAR: S1, S2 regular. ABDOMEN: Soft, nontender. EXTREMITIES: Show no edema. VITAL SIGNS: Show blood pressure 127/75, pulse rate 59, temperature 36.7, 90% on room air. LABORATORY TESTS: Reviewed. Of special interest to nephrology, calcium was 10.9 on admission, but this morning after IV hydration overnight, it is normal. Serum PTH was inappropriately high and not suppressed at 193. Renal function normal. Phosphorus was low, but after supplementation is normal. ASSESSMENT AND PLAN: A 50-year-old female who has chronic mild hypercalcemia for the last few years, but has not been worked up for this. She presented to the hospital after severe back pain following a fall. She was found to have hypercalcemia and hypophosphatemia with a non-suppressed PTH. 1. Hypercalcemia: As stated earlier, she has chronically mild high serum calcium for the last few years, but I did not see any readings of 11 or higher. Suppressed phosphorus of 1.9 and a non-suppressed PTH of 193. This combination is very consistent with primary hyperparathyroidism. I would like to do a nuclear scan for parathyroid while she is in the hospital if possible--but not urgent. For more accuracy, I would like to repeat an ionized calcium, phosphorus, and PTH again tomorrow. Depending on the finding of the parathyroid scan, we will make further plan. However, this can be done as an outpatient also and we do not necessarily have to keep her in the hospital to finish this workup. 2. Back pain: This is being addressed by orthopedics and primary team. Job ID: [id number] [facility]
--- NOTE | 2020-11-19 16:34 | Hospitalist Progress Note ---
Date of Service November 19, 2020 Assessment & Plan (1) Intractable back pain: Intractable back pain Recent traumatic fall Lumbar radiculopathy, L4-L5 disc protrusion H/O chronic pain, fibromyalgia -Recent Lumbar MRI: No fracture or subluxation within the lumbar spine. Small right paracentral focal disc protrusion at L4-5 which abuts but does not displace the transiting right L5 nerve root. -Follows with [facility] pain clinic Plan for outpatient injections by Dr. Barr Appreciate orthopedics input PT OT Patient is scheduled for Orthopedic Spine eval as outpatient Hypokalemia Secondary to GI losses Replace electrolytes as needed next Recurrent hypercalcemia Hypophosphatemia Likely secondary to primary hyperparathyroidism PTH elevated at 192 Ca:10.9>8.9 Plan for repeat PTH, ionized calcium tomorrow Needs parathyroid scan as outpatient Received IV fluids Appreciate nephrology input Monitor calcium levels Avoid calcium, vitamin D supplement H/O Cardiomyopathy No signs of volume overload Monitor volume status Anxiety/mood disorder Continue home medications Hypothyroidism Continue levothyroxine Prediabetes hemoglobin A1c of 5.09 November 2020 Ongoing tobacco abuse Counseled to quit smoking DVT Px: SCDs for now Admission and Anticipated Discharge Date Admission Date: November 18, 2020 Subjective And is seen and examined at bedside Complains of lower back pain Offers no other complaints Denies chest pain, shortness of breath, dizziness, nausea, abdominal pain Review of Systems Review of Systems: All systems reviewed & are unremarkable except as noted in HPI & below Physical Exam Physical Exam: Physical Exam: Vitals signs as noted above General Appearance:Obese, no apparent distress Head: normocephalic, Atraumatic Eyes: normal inspection, EOMI Neck: supple, Trachea midline Respiratory/Chest: Normal breath sounds, CTA Cardiovascular: S1, S2, No murmur Abdomen/GI:Soft, Non tender, Bowel sounds present Back:Lumbar Tenderness Extremities/Musculoskeletal:normal inspection, no edema Neurologic/Psych:AAOX3, grossly no focal neurological deficits Skin: normal color, warm Results & Data Results & Data ([facility]) Vital Signs (Past 12 Hours) Vital Signs Temp Pulse Resp BP Pulse Ox 11/19/20 15:35 36.8 C 59 L 16 124/81 93 11/19/20 07:31 36.7 C 59 L 16 127/75 90 Laboratory Results Short CBC 11/18/20 11/19/20 Range/Units 18:51 04:01 WBC 11.75 H 9.19 (4.8-10.8) K/uL Hgb 16.3 H 13.4 (12.0-16.0) g/dL Hct 47.5 H 40.2 (37-47) % Plt Count 296 234 (130-400) K/uL BMP 11/18/20 11/19/20 18:51 04:01 Sodium 142 144 Potassium 3.3 L 4.3 D Chloride 107 112 H Carbon Dioxide 27 27 BUN 11 13 Creatinine 0.92 0.76 Glucose 109 H 86 Calcium 10.9 H D 8.9 D Liver Function 11/18/20 Range/Units 18:51 Total Bilirubin 0.6 (0.2-1) mg/dl AST 14 L (15-37) U/L ALT 15 (12-78) U/L Alkaline Phosphatase 110 (45-117) U/L Albumin 3.8 (3.4-5.0) gm/dl Urine 11/19/20 Range/Units 08:20 Urine Color Dark Yellow Urine Appearance Cloudy A (Clear) Urine pH 5.5 (4.5-7.5) Ur Specific [place] 1.024 (1.000-1.030) Urine Protein Negative (Negative) Urine Glucose (UA) Negative (Negative)
[2020-11-20] MEDS: MoRPHine SULFATE IR 15 MG TAB (IMMEDIATE RELEASE) PO PRN ×2 (04:59→12:34)
[2020-11-20] MEDS: LEVOTHYROXINE SODIUM 125 MCG TABLET PO SCH (05:00)
[2020-11-20 07:49] LABS: Hematocrit (blood only) 39.9 % (37-47); Hemoglobin 13.1 g/dL (12.0-16.0); Mean Corpuscular Hemoglobin 29.6 pg (25-34); Mean Corpuscular Hgb Conc 32.8 g/dL (32-36); Mean Corpuscular Volume 90.1 fL (80-100); Mean Platelet Volume 9.9 fL (7.4-10.4); Platelet Count 189 K/uL (130-400); RDW Coefficient of Variation 13.2 % (11.5-14.5); RDW Standard Deviation 43.7 fL (36.4-46.3); Red Blood Count 4.43 M/uL (4.2-5.4); White Blood Count 6.92 K/uL (4.8-10.8)
[2020-11-20] MEDS: MoRPHine SULFATE CR 15 MG TABCR PO SCH (07:50)
[2020-11-20 08:07] LABS: Calcium 8.8 mg/dl (8.5-10.1); Creatinine Clr Calc Pharmacy 123.1 ml/min; Est GFR (African American) 106.8 ml/min; Est GFR (Non-African American) 92.1 ml/min; Magnesium 2.2 mg/dl (1.8-2.4); Potassium 4.3 mmol/L (3.5-5.1)
[2020-11-20 08:13] LABS: Phosphorus 3.3 mg/dl (2.5-4.9)
--- NOTE | 2020-11-20 09:25 | Nephrology Progress Note ---
Date of Service November 20, 2020 Assessment & Plan Admission and Anticipated Discharge Date Admission Date: November 18, 2020 Subjective No new issues. Still some back pain. PHYSICAL EXAMINATION: GENERAL: A middle-aged white female who is slightly obese. She is not in any overt respiratory distress. HEENT: Mucous membrane is moist. NECK: Supple. No jugular venous distention. CHEST: Bilaterally clear to auscultation. CARDIOVASCULAR: S1, S2 regular. ABDOMEN: Soft, nontender. EXTREMITIES: Show no edema. LABORATORY TESTS: Reviewed. Of special interest to nephrology, calcium was 10.9 on admission, but this morning after IV hydration overnight, it is normal. Serum PTH was inappropriately high and not suppressed at 193. Renal function normal. Phosphorus was low, but after supplementation is normal. ASSESSMENT AND PLAN: A 50-year-old female who has chronic mild hypercalcemia for the last few years, but has not been worked up for this. She presented to the hospital after severe back pain following a fall. She was found to have hypercalcemia and hypophosphatemia with a non-suppressed PTH. 1. Hypercalcemia: As stated earlier, she has chronically mild high serum calcium for the last few years, but I did not see any readings of 11 or higher. Suppressed phosphorus of 1.9 and a non-suppressed PTH of 193. This combination is very consistent with primary hyperparathyroidism. I would like to do a nuclear scan for parathyroid --told by Radiology this needs to be done outpt. this is fine. For more accuracy, I would like to repeat an ionized calcium, phosphorus, and PTH again tomorrow. Depending on the finding of the parathyroid scan, we will make further plan. However, this can be done as an outpatient also and we do not necessarily have to keep her in the hospital to finish this workup. Schedule f/u with Nephrology after discharge. make sure she has date and time for the scan before discharge. 2. Back pain: This is being addressed by orthopedics and primary team. Results & Data ([facility]) Vital Signs (Past 12 Hours) Vital Signs Temp Pulse Resp BP Pulse Ox 11/20/20 07:56 36.7 C 57 L 16 127/82 93 11/19/20 22:28 36.7 C 57 L 17 152/74 H 95
[2020-11-20] MEDS: NICOTINE 14 MG/24 HR PATCH TD SCH (09:32)
[2020-11-20] MEDS: DULoxetine HCL 30 MG CAP PO SCH (09:34)
[2020-11-20] MEDS: DULoxetine HCL 60 MG CAP PO SCH (09:34)
--- NOTE | 2020-11-20 12:25 | Hospitalist Progress Note ---
Date of Service November 20, 2020 Assessment & Plan (1) Intractable back pain: Intractable back pain Recent traumatic fall Lumbar radiculopathy, L4-L5 disc protrusion H/O chronic pain, fibromyalgia -Recent Lumbar MRI: No fracture or subluxation within the lumbar spine. Small right paracentral focal disc protrusion at L4-5 which abuts but does not displace the transiting right L5 nerve root. -Follows with [facility] pain clinic Plan for outpatient injections by Dr. Barr Appreciate orthopedics input PT OT Patient is scheduled for Orthopedic Spine eval as outpatient Back pain is better Hypokalemia Secondary to GI losses Replace electrolytes as needed Resolved Recurrent hypercalcemia Hypophosphatemia Likely secondary to primary hyperparathyroidism PTH elevated: 192>140 Ca:10.9>8.9>8.8 Ionized calcium: 1.30 Needs parathyroid scan as outpatient Received IV fluids Appreciate nephrology input Monitor calcium levels Avoid calcium, vitamin D supplement Needs follow-up with nephrology upon discharge H/O Cardiomyopathy No signs of volume overload Monitor volume status Anxiety/mood disorder Continue home medications Hypothyroidism Continue levothyroxine Prediabetes hemoglobin A1c of 5.09 November 2020 Ongoing tobacco abuse Counseled to quit smoking DVT Px: SCDs for now Admission and Anticipated Discharge Date Admission Date: November 18, 2020 Subjective Patient is seen and examined at bedside States back pain is improved No new complaints Denies chest pain, shortness of breath, dizziness, nausea, abdominal pain Review of Systems Review of Systems: All systems reviewed & are unremarkable except as noted in HPI & below Physical Exam Physical Exam: Physical Exam: Vitals signs as noted above General Appearance:Obese, no apparent distress Head: normocephalic, Atraumatic Eyes: normal inspection, EOMI Neck: supple, Trachea midline Respiratory/Chest: Normal breath sounds, CTA Cardiovascular: S1, S2, No murmur Abdomen/GI:Soft, Non tender, Bowel sounds present Back:Lumbar Tenderness Extremities/Musculoskeletal:normal inspection, no edema Neurologic/Psych:AAOX3, grossly no focal neurological deficits Skin: normal color, warm Results & Data Results & Data ([facility]) Vital Signs (Past 12 Hours) Vital Signs Temp Pulse Resp BP Pulse Ox 11/20/20 11:57 36.7 C 57 L 16 127/82 93 11/20/20 07:56 36.7 C 57 L 16 127/82 93 Laboratory Results Short CBC 11/20/20 Range/Units 07:38 WBC 6.92 (4.8-10.8) K/uL Hgb 13.1 (12.0-16.0) g/dL Hct 39.9 (37-47) % Plt Count 189 (130-400) K/uL [facility] 11/20/20 07:38 Sodium 142 Potassium 4.3 Chloride 112 H Carbon Dioxide 28 BUN 11 Creatinine 0.76 Glucose 86 Calcium 8.8
--- NOTE | 2020-11-20 12:38 | Discharge Summary ---
Date of Service November 20, 2020 Admission HPI Per Admitting Provider History obtained from patient, family, and records. Medical history significant for chronic pain/fibromyalgia as per records, IBS as per records, anxiety/mood disorder, past history cardiomyopathy (TTE 60 to 65%, TTE 2019), hypothyroidism, prediabetes, ongoing tobacco abuse. Last confinement yesterday for severe low back pain with leg weakness following a fall from her sister's porch 3 days ago. Lumbar spine MRI showed small right paracentral focal disc protrusion at L4-5 which abuts but does not displace transiting right L5 nerve root. Patient discharged from ER 3 days ago. Patient returned to ER 2 days ago for intractable pain and was admitted for a day. Patient and claimed patient was still uncomfortable at time of discharge yesterday. Outpatient [facility] [place] spine referral scheduled for next week. Intractable low back pain with radiation to the right lower extremity upon return home. No unusual weakness, bowel/bladder incontinence. No fever, no chills. Nausea, vomiting symptoms without abdominal pain or constipation as per patient. Patient denies chest pain, S OB. Patient brought by to the ER because of intractable symptoms. Medical History as above : Surgical History : Cervical lymph node biopsy, section, cystoscopy, appendectomy, BTL, partial hysterectomy, cholecystectomy Family History : Crohn's disease Personal/Social history : One pack daily, no EtOH intake, disabled Admission Exam Per Admitting Provider Physical Exam Physical Exam: GENERAL: uncomfortable, obese, no respiratory distress SKIN: Normal color, warm HEENT: [place] palpebral conjunctivae, no ptosis, dry buccal mucosa NECK : Supple, short neck, no tenderness CHEST : Decreased breath sounds, no tenderness HEART : RRR, no obvious murmurs ABDOMEN: Some distention, nontender BACK : Low back tenderness, straight leg raise test R>L EXTREMITIES : No LE swelling/tenderness, no other conspicuous deformities noted NEUROLOGIC : Coherent, no facial asymmetry, no other gross focality Principal Diagnosis Back Pain L4-L5 disc protrusion Hypokalemia Hypercalcemia Discharge Data Allergies Allergy/AdvReac Type Severity Reaction Status Date / Time gabapentin Allergy Severe anaphylaxis Verified 11/18/20 19:18 tramadol Allergy Severe ANAPHYLAXIS Verified 11/18/20 19:18 chlorpheniramine Allergy Intermediate SHORTNESS Verified 11/18/20 19:18 OF BREATH guaifenesin Allergy Intermediate SHORTNESS Verified 11/18/20 19:18 OF BREATH metoclopramide AdvReac Intermediate anxiety Verified 11/18/20 19:18 Consultations 11/18/20 19:48 ED Decision to Admit Stat 11/18/20 23:47 Consult Nephrology Routine Consult Orthopedic Surgery Routine Procedures Performed Recent Lumbar MRI: No fracture or subluxation within the lumbar spine. Small right paracentral focal disc protrusion at L4-5 which abuts but does not displace the transiting right L5 nerve root. Hospital Course (1) Intractable back pain: Intractable back pain Recent traumatic fall Lumbar radiculopathy, L4-L5 disc protrusion H/O chronic pain, fibromyalgia -Recent Lumbar MRI: No fracture or subluxation within the lumbar spine. Small right paracentral focal disc protrusion at L4-5 which abuts but does not dis place the transiting right L5 nerve root. -Follows with [facility] pain clinic Plan for outpatient injections by Dr. Barr Appreciate orthopedics input PT OT Patient is scheduled for Orthopedic Spine eval as outpatient Back pain is better Hypokalemia Secondary to GI losses Replace electrolytes as needed Resolved Recurrent hypercalcemia Hypophosphatemia Likely secondary to primary hyperparathyroidism PTH elevated: 192>140 Ca:10.9>8.9>8.8 Ionized calcium: 1.30 Needs parathyroid scan as outpatient Received IV fluids Appreciate nephrology input Monitor calcium levels Avoid calcium, vitamin D supplement Needs follow-up with nephrology upon discharge H/O Cardiomyopathy No signs of volume overload Monitor volume status Anxiety/mood disorder Continue home medications Hypothyroidism Continue levothyroxine Prediabetes hemoglobin A1c of 5.09 November 2020 Ongoing tobacco abuse Counseled to quit smoking DVT Px: SCDs for now Total Time Total Time Spent Total Time Spent (In Minutes): 29 minutes Total Time Includes: Examination of the Patient, Discharge Planning, Medication Reconciliation, Communication With Other Providers and Other Discharge Plan Discharge Items Patient Disposition: Home - Self-Care Reason For Visit: BACK PAIN Discharge Diagnosis: Back Pain L4-L5 disc protrusion Hypokalemia Hypercalcemia Activity: Per Instructions section Exercise/Sports: Wait until after follow-up appointment Non-emergency contact: Primary Care Provider, Surgeon and [employer] Call non-emergency contact if: you have any medication questions, your symptoms worsen, your pain is not controlled, your pain is concerning for you and you have a fever Follow-up/Referrals: Betsy Harrison MD, PhD [Physician] - (Date & Time 11/27/2020 1:50 PM Provider Betsy Harrison MD Department Nephrology, [facility] ) Dajuan Bell DO [Primary Care Provider] - (Date & Time 11/25/2020 11:00 AM Provider Dajuan Bell DO Department Family [facility] ) Diet: Heart Healthy Addtl Attending Provider Instructions: Follow up with your PCP on 11/25/2020 at 11:00 AM Follow up with your [employer] for further evaluation of high Calcium levels as advised on 11/27/2020 at1:50 PM Follow up with your Orthopedic surgeon as scheduled Avoid Taking any calcium, Vitamin D supplements until further instructions from your physician Get Parathyroid Scan as recommended prior to your [employer] follow up. Seek immediate medical attention if your symptoms reoccur or worsen Please take all medications as instructed on discharge list below. Please call if you have any questions or problems. You can reach a [facility] hospitalist on duty at [facility] 24 hours a day by calling [phone] Pending Studies at Discharge: No Stand-Alone Forms: My [facility], Opioid Pain Management, Smoking Cessation Medications and DC Order Prescriptions: Continued furosemide [Lasix] 40 mg Tablet 40 mg PO QAM PRN (Reason: Edema) RF: 0 nitroglycerin [Nitrostat] 0.4 mg Tablet, Sublingual 0.4 mg Sublingual DIRECTED PRN (Reason: Chest Pain) RF: 0 morphine 15 mg tablet extended release 15 mg PO TID RF: 0 morphine 15 mg tablet 15 mg PO TID RF: 0 levothyroxine 125 mcg tablet 250 mcg PO QAM RF: 0 aspirin [Aspirin Low Dose] 81 mg Tablet,Delayed Release (Dr/Ec) 81 mg PO QAM RF: 0 metformin 500 mg tablet extended release 24 hr 500 mg PO DAILY RF: 0 duloxetine 60 mg capsule,delayed release(DR/EC) 60 mg PO DAILY RF: 0 polyethylene glycol 3350 [Miralax] 17 gram/dose Powder 17 g PO DAILY PRN (Reason: Constipation) RF: 0 duloxetine 30 mg capsule,delayed release(DR/EC) 30 mg PO DAILY RF: 0 tizanidine 2 mg tablet 2 mg PO Q6H PRN (Reason: MUSCLE SPASMS) RF: 0 acetaminophen [Tylenol Extra Strength] 500 mg Tablet 1,000 mg PO Q6H PRN (Reason: Pain) RF: 0 ibuprofen 200 mg Tablet 400 mg PO Q6H PRN (Reason: Pain) RF: 0 Discharge Orders: Discharge Order (Routine); Ordered 11/20/20 Ordered By: Tavo Maxwell/Other Patient Handouts: Nuclear Medicine Scan Admission Data Admit Date/Time: 11/18/20 22:35 Attending Provider: Tavo Marks Admit Provider: Ivan Hebert Primary Care Provider: Dajuan Bell Other Providers: Ivan Hebert ; Betsy Harrison ; Andrew Okeefe Elissa R. ; Almita Boyle Japheth E. ; Alfreda Mendez ; Cynthia Hoyt Other Interventions: Discharge Summary Assessment (RN) Last Done: 11/20/20 13:47
== END 2020-11-20 14:04 | disposition home or self-care (01) ==
LOC: 3W 16:11 → ED 16:11 → 3W 23:26

== ENCOUNTER 2020-12-12 20:21 | Observation (INO) ==
[2020-12-12] MEDS ORDERED: HYDROmorphone INJ 1 MG/ML SYRINGE IV STA ×2 (21:30→22:48)
[2020-12-12] MEDS ORDERED: ONDANSETRON INJ 2 MG/ML 2 ML VIAL IV STA ×2 (21:30→22:48)
[2020-12-12] MEDS ORDERED: SODIUM CHLORIDE 0.9% 1000ML 1,000 ML IV STA (21:30)
--- NOTE | 2020-12-12 21:35 | Emergency Department Note ---
History of Present Illness General Chief complaint: Back Injury/Pain Stated complaint: MID/LOWER BACK PAIN,BILATERAL LEG PAIN,NAUSEA,VOM Time Seen by Provider: 12/12/20 21:19 Source: patient and family (Spouse who is at the bedside) Mode of arrival: ambulatory Limitations: no limitations History of Present Illness Maximum Pain Intensity: 10 This patient is a 50-year-old female who comes in with intractable back pain and nausea vomiting related to the pain. She fell a month ago and hurt her back. She did have an MRI which showed a small posterior disc at L4-5. She had pre- existing back problems to begin with and has been followed by Dr. Barr she is also been seen at a tertiary care center and she is felt to be nonoperative. She saw her primary doctor this morning as she is having severe pain and they recommend she come to the ER for possible admission for pain management if she was not getting better. She is on both quick acting and extended release morphine as well as Cymbalta. She has had no injury since her fall. She said initially her leg was numb but since it stopped being numb it now hurts. She denies any new numbness weakness no change in bowel bladder function no dysuria hematuria. She has not had the Covid vaccine or Covid or known exposure to Covid. No abdominal pain chest pain or shortness of breath or cough. She has had a high calcium and recently the parathyroid scan. It was unremarkable. Home Medications Medication Instructions Recorded Confirmed Type furosemide [Lasix] 40 mg PO QAM PRN 03/17/18 12/12/20 History nitroglycerin [Nitrostat] 0.4 mg SUBLINGUAL DIRECTED PRN 03/17/18 12/12/20 History morphine 15 mg PO TID 10/06/18 12/12/20 History levothyroxine 250 mcg PO QAM 12/28/19 12/12/20 History morphine 15 mg PO TID PRN 12/28/19 12/12/20 History aspirin [Aspirin Low Dose] 81 mg PO QAM 09/23/20 12/12/20 History duloxetine 60 mg PO DAILY 09/24/20 12/12/20 History metformin 500 mg PO DAILY 09/24/20 12/12/20 History duloxetine 30 mg PO DAILY 11/15/20 12/12/20 History polyethylene glycol 3350 [Miralax] 17 g PO DAILY PRN 11/15/20 12/12/20 History acetaminophen [Tylenol Extra 1,000 mg PO Q6H PRN 11/16/20 12/12/20 History Strength] ibuprofen 400 mg PO Q6H PRN 11/16/20 12/12/20 History tizanidine 2 mg PO Q6H PRN 11/16/20 12/12/20 History Allergies Allergy/AdvReac Type Severity Reaction Status Date / Time gabapentin Allergy Severe anaphylaxis Verified 12/12/20 21:57 tramadol Allergy Severe ANAPHYLAXIS Verified 12/12/20 21:58 chlorpheniramine Allergy Intermediate SHORTNESS Verified 12/12/20 21:57 OF BREATH guaifenesin Allergy Intermediate SHORTNESS Verified 12/12/20 21:57 OF BREATH metoclopramide AdvReac Intermediate anxiety Verified 12/12/20 21:57 Past Med/Surg History Medical History (Updated 12/13/20 @ 01:26 by Luis Peterson MD) Anxiety Atelectasis Cardiomyopathy 2014 - thought to be stress induced, reported normal dobutamine stress and echo after Chronic back pain Chronic pain syndrome Depression Fibromyalgia H/O traumatic brain injury Hypokalemia Hypothyroidism (Unknown) IBS (irritable bowel syndrome) Migraines Opiate dependence Tobacco abuse Surgical History Bilateral tubal ligation (Unknown) section (Unknown) H/O colonoscopy "2006 path normal" H/O cystoscopy H/O esophagogastroduodenoscopy "2006 path normal" Hx of appendectomy Hx of cholecystectomy Hx of hysterectomy S/P lymph node biopsy "deep cervical inflammatory node 2007" Family History Other Diabetes Hypertension Thyroid disorder Social History Smoking Status: Current every day smoker Tobacco Type: Cigarettes Cigarettes Per Day: 10; Second Hand Exposure: Yes; Hx Alcohol Use: No Hx Substance Use: No Preferred Language: Croatian Communication Ability: Effective Visual Impairment: Partially Limited [employer] Operator Required: No Beliefs That Will Affect Care: None marital status: Current Living Situation: Spouse and Family Feels Safe at Home: Yes Assistive Devices: Walker Physical Exam Vital Signs Vital Signs - 24 hr 12/12/20 20:31 12/12/20 21:56 12/12/20 22:00 Temperature 36.8 C Temperature Source Temporal Artery Scan Pulse Rate 83 70 Pulse Rate from SpO2 Sensor 70 Pulse Rhythm Respiratory Rate 20 30 H Respiratory Effort / Characteristics Non-Labored Spontaneous Non-Labored Spontaneous Respiratory Depth Normal Normal Respiratory Pattern Regular Blood Pressure 148/95 H 124/73 Blood Pressure Mean 112 90 Blood Pressure Position Sitting Pulse Oximetry 98 97 Oxygen Delivery Method Room Air Room Air Sepsis Recent Fever Within 48 Hours No Sepsis New/Unexplained Change in Mental Status No Sepsis Action Taken by Nursing No Action Required 12/12/20 22:13 12/13/20 00:33 Temperature Temperature Source Pulse Rate Pulse Rate from SpO2 Sensor Pulse Rhythm Regular Respiratory Rate Respiratory Effort / Characteristics Non-Labored Spontaneous Respiratory Depth Normal Respiratory Pattern Blood Pressure Blood Pressure Mean Blood Pressure Position Pulse Oximetry Oxygen Delivery Method Room Air Room Air Sepsis Recent Fever Within 48 Hours Sepsis New/Unexplained Change in Mental Status Sepsis Action Taken by Nursing Course Administered Medications Discontinued Medications Hydromorphone HCl (Hydromorphone Inj 1 Mg/Ml Syringe) 1 mg IV NOW STA Stop: 12/12/20 21:31 Last Admin: 12/12/20 22:07 Dose: 1 mg Documented by: [id number] Hydromorphone HCl (Hydromorphone Inj 1 Mg/Ml Syringe) 1 mg IV NOW STA Stop: 12/12/20 22:49 Last Admin: 12/12/20 23:23 Dose: 1 mg Documented by: [id number] Hydromorphone HCl (Hydromorphone Inj 1 Mg/Ml Syringe) 1 mg IV NOW STA Stop: 12/13/20 00:13 Last Admin: 12/13/20 00:14 Dose: 1 mg Documented by: [id number] Sodium Chloride (Nss 1000ml) 1,000 mls @ 999 mls/hr IV .Q1H1M STA Stop: 12/12/20 22:30 Last Infusion: 12/12/20 23:16 Dose: 0 mls/hr Documented by: [id number] Admin: 12/12/20 22:10 Dose: 999 mls/hr Documented by: [id number] Ondansetron HCl (Ondansetron Inj 2 Mg/Ml 2 Ml Vial) 4 mg IV NOW STA Stop: 12/12/20 21:31 Last Admin: 12/12/20 22:07 Dose: 4 mg Documented by: [id number] Ondansetron HCl (Ondansetron Inj 2 Mg/Ml 2 Ml Vial) 4 mg IV NOW STA Stop: 12/12/20 22:49 Last Admin: 12/12/20 23:23 Dose: 4 mg Documented by: [id number] Medical Decision Making Differential Diagnosis Acute exacerbation of chronic pain, lumbar degenerative disease, lumbar disc disease, cauda equina, infection, musculoskeletal Medical Records Attestation: I reviewed the patient's medical records. Home Medications Current Medication List: was personally reviewed by me Laboratory Data Attestation: I reviewed the patient's lab results. Result diagrams: 12/12/20 21:41 12/12/20 21:41 Lab Results 12/12/20 12/12/20 12/12/20 Range/Units 21:41 21:41 21:43 WBC 9.61 (4.8-10.8) K/uL RBC 5.24 (4.2-5.4) M/uL Hgb 15.9 (12.0-16.0) g/dL Hct 47.6 H (37-47) % MCV 90.8 (80-100) fL MCH 30.3 (25-34) pg MCHC 33.4 (32-36) g/dL RDW Std Deviation 44.5 (36.4-46.3) fL RDW Coeff of Roro 13.4 (11.5-14.5) % Plt Count 256 (130-400) K/uL MPV 10.9 H (7.4-10.4) fL Immature Gran % (Auto) 0.3 % Neut % (Auto) 71.9 % Lymph % (Auto) 22.7 % [place] % (Auto) 4.3 % Eos % (Auto) 0.6 % Baso % (Auto) 0.2 % Neut # (Auto) 6.91 H (1.4-6.5) K/uL Lymph # (Auto) 2.18 (1.2-3.4) K/uL [place] # (Auto) 0.41 (0.11-0.59) K/uL Eos # (Auto) 0.06 (0-0.5) K/uL Baso # (Auto) 0.02 (0-0.2) K/uL Immature Gran # (Auto) 0.03 H (0.00-0.02) K/uL Sodium 141 (136-145) mmol/L Potassium 3.9 (3.5-5.1) mmol/L Chloride 109 H (98-107) mmol/L Carbon Dioxide 28 (21-32) mmol/L Anion Gap 4.0 (3-11) BUN 9 (7-18) mg/dl Creatinine 0.91 (0.6-1.2) mg/dl Est Cr Clr Drug Dosing 103.5 ml/min Est GFR ( Amer) 85.9 ml/min Est GFR (Non-Af Amer) 74.1 ml/min BUN/Creatinine Ratio 10.2 (10-20) Glucose 100 H (70-99) mg/dl Calcium 10.5 H (8.5-10.1) mg/dl Total Bilirubin 0.3 (0.2-1) mg/dl AST 8 L (15-37) U/L ALT 14 (12-78) U/L Alkaline Phosphatase 115 (45-117) U/L Troponin I < 0.015 (0-0.045) ng/ml Total Protein 8.1 (6.4-8.2) gm/dl Albumin 3.7 (3.4-5.0) gm/dl Globulin 4.4 H (2.5-4.0) gm/dl Albumin/Globulin Ratio 0.8 L (0.9-2) Lipase 79 (73-393) U/L Urine Color Urine Appearance (Clear) Urine pH (4.5-7.5) Ur Specific [place] (1.000-1.030) Urine Protein (Negative) Urine Glucose (UA) (Negative) Urine Ketones (Negative) Urine Blood (Negative) Urine Nitrite (Negative) Urine Bilirubin (Negative) Urine Urobilinogen (Negative) Ur Leukocyte Esterase (Negative) Urine WBC (Auto) (0-5) /hpf Urine RBC (Auto) (0-4) /hpf U Hyaline Cast (Auto) (0-5) /lpf U Epithel Cells (Auto) (0-5) /lpf Urine Bacteria (Auto) (Negative) COVID-19 Eval Order Covid19 at [facility] SARS-CoV-2 (PCR) (Negative) 12/12/20 12/12/20 Range/Units 21:43 23:28 WBC (4.8-10.8) K/uL RBC (4.2-5.4) M/uL Hgb (12.0-16.0) g/dL Hct (37-47) % MCV (80-100) fL MCH (25-34) pg MCHC (32-36) g/dL RDW Std Deviation (36.4-46.3) fL RDW Coeff of Roro (11.5-14.5) % Plt Count (130-400) K/uL MPV (7.4-10.4) fL Immature Gran % (Auto) % Neut % (Auto) % Lymph % (Auto) % [place] % (Auto) % Eos % (Auto) % Baso % (Auto) % Neut # (Auto) (1.4-6.5) K/uL Lymph # (Auto) (1.2-3.4) K/uL [place] # (Auto) (0.11-0.59) K/uL Eos # (Auto) (0-0.5) K/uL Baso # (Auto) (0-0.2) K/uL Immature Gran # (Auto) (0.00-0.02) K/uL Sodium (136-145) mmol/L Potassium (3.5-5.1) mmol/L Chloride (98-107) mmol/L Carbon Dioxide (21-32) mmol/L Anion Gap (3-11) BUN (7-18) mg/dl Creatinine (0.6-1.2) mg/dl Est Cr Clr Drug Dosing ml/min Est GFR ( Amer) ml/min Est GFR (Non-Af Amer) ml/min BUN/Creatinine Ratio (10-20) Glucose (70-99) mg/dl Calcium (8.5-10.1) mg/dl Total Bilirubin (0.2-1) mg/dl AST (15-37) U/L ALT (12-78) U/L Alkaline Phosphatase (45-117) U/L Troponin I (0-0.045) ng/ml Total Protein (6.4-8.2) gm/dl Albumin (3.4-5.0) gm/dl Globulin (2.5-4.0) gm/dl Albumin/Globulin Ratio (0.9-2) Lipase (73-393) U/L Urine Color Yellow Urine Appearance Clear (Clear) Urine pH 7.0 (4.5-7.5) Ur Specific [place] 1.019 (1.000-1.030) Urine Protein Negative (Negative) Urine Glucose (UA) Negative (Negative) Urine Ketones Negative (Negative) Urine Blood 1+ H (Negative) Urine Nitrite Negative (Negative) Urine Bilirubin Negative (Negative) Urine Urobilinogen Negative (Negative) Ur Leukocyte Esterase Negative (Negative) Urine WBC (Auto) 5-10 H (0-5) /hpf Urine RBC (Auto) 10-30 H (0-4) /hpf U Hyaline Cast (Auto) 1-5 (0-5) /lpf U Epithel Cells (Auto) >30 H (0-5) /lpf Urine Bacteria (Auto) 1+ H (Negative) COVID-19 Eval Order SARS-CoV-2 (PCR) NEGATIVE (Negative) ECG Data Attestation: I personally reviewed and interpreted this ECG as follows: Indication: + nausea and + vomiting Rate (beats per minute): 69 Rhythm: + normal sinus ECG Intervals/blocks: + Normal QRS, + Normal QT and + Normal [place] ECG [place]: + Normal ECG ST segments: + Normal ST segments ECG Findings: no PACs and no PVCs Comparison ECG Date: from (11/15/20) Change: no significant change MDM Narrative This patient comes in as described above. She was placed in room C3. She is here for treatment and evaluation of intractable back pain and nausea and vomiting. She has no new neurologic deficits and on exam has intact reflexes and motor and sensation. She appears very uncomfortable. Despite taking significant pain medication as an outpatient she is not doing well. IV access was established and she was hydrated with IV normal saline bolus and EKG was obtained she was given Dilaudid 1 mg IV and Zofran 4 mg IV. She was reassessed frequently. She has no acute electrolyte or metabolic abnormalities. EKG does not suggest acute coronary syndrome or arrhythmia. She did require additional doses of IV Dilaudid. I do think she needs to be admitted for pain management and nausea management have consulted Dr. Mahoney to see her for these measures. Given that she is being admitted I did do a Covid test and it was negative. Continuous cardiac monitoring: Orders placed in EMR for continuous cardiac monitoring. Upon my interpretation she was noted to be in normal sinus rhythm with a rate of 70. Impression & Plan Back pain, Intractable back pain, Nausea & vomiting, Acute dehydration, Lab test negative for COVID-19 virus Discharge Plan Visit Data Chief Complaint: Back Injury/Pain Stated Complaint: MID/LOWER BACK PAIN,BILATERAL LEG PAIN,NAUSEA,VOM ED Provider: Luis Peterson Discharge Problem: Back pain, Intractable back pain, Nausea & vomiting, Acute dehydration, Lab test negative for COVID-19 virus Forms Stand Alone Forms: [facility] Prescriptions Prescriptions: No Action furosemide [Lasix] 40 mg Tablet 40 mg PO QAM PRN (Reason: Edema) RF: 0 nitroglycerin [Nitrostat] 0.4 mg Tablet, Sublingual 0.4 mg Sublingual DIRECTED PRN (Reason: Chest Pain) RF: 0 morphine 15 mg tablet extended release 15 mg PO TID RF: 0 morphine 15 mg tablet 15 mg PO TID PRN (Reason: Pain) RF: 0 levothyroxine 125 mcg tablet 250 mcg PO QAM RF: 0 aspirin [Aspirin Low Dose] 81 mg Tablet,Delayed Release (Dr/Ec) 81 mg PO QAM RF: 0 metformin 500 mg tablet extended release 24 hr 500 mg PO DAILY RF: 0 duloxetine 60 mg capsule,delayed release(DR/EC) 60 mg PO DAILY RF: 0 polyethylene glycol 3350 [Miralax] 17 gram/dose Powder 17 g PO DAILY PRN (Reason: Constipation) RF: 0 duloxetine 30 mg capsule,delayed release(DR/EC) 30 mg PO DAILY RF: 0 tizanidine 2 mg tablet 2 mg PO Q6H PRN (Reason: MUSCLE SPASMS) RF: 0 acetaminophen [Tylenol Extra Strength] 500 mg Tablet 1,000 mg PO Q6H PRN (Reason: Pain) RF: 0 ibuprofen 200 mg Tablet 400 mg PO Q6H PRN (Reason: Pain) RF: 0 Discharge Problem: Back pain Qualifiers: Back pain location: low back pain Chronicity: acute Back pain laterality: midline Sciatica presence: without sciatica Qualified Code(s): M54.5 - Low back pain Nausea & vomiting Qualifiers: Vomiting type: unspecified Vomiting Intractability: intractable Qualified Code(s): R11.2 - Nausea with vomiting, unspecified
[2020-12-12 22:05] LABS: Basophils # (auto) 0.02 K/uL (0-0.2); Basophils % (auto) 0.2 %; Eosinophils # (auto) 0.06 K/uL (0-0.5); Eosinophils % (auto) 0.6 %; Hematocrit (blood only) 47.6 % (37-47); Hemoglobin 15.9 g/dL (12.0-16.0); Immature Granulocytes # (auto) 0.03 K/uL (0.00-0.02); Immature Granulocytes % (auto) 0.3 %; Lymphocytes # (auto) 2.18 K/uL (1.2-3.4); Lymphocytes % (auto) 22.7 %; Mean Corpuscular Hemoglobin 30.3 pg (25-34); Mean Corpuscular Hgb Conc 33.4 g/dL (32-36); Mean Corpuscular Volume 90.8 fL (80-100); Mean Platelet Volume 10.9 fL (7.4-10.4); Monocytes # (auto) 0.41 K/uL (0.11-0.59); Monocytes % (auto) 4.3 %; Neutrophils # (auto) 6.91 K/uL (1.4-6.5); Neutrophils % (auto) 71.9 %; Platelet Count 256 K/uL (130-400); RDW Coefficient of Variation 13.4 % (11.5-14.5); RDW Standard Deviation 44.5 fL (36.4-46.3); Red Blood Count 5.24 M/uL (4.2-5.4); White Blood Count 9.61 K/uL (4.8-10.8)
[2020-12-12 22:21] LABS: Alanine Aminotransferase 14 U/L (12-78); Albumin Level 3.7 gm/dl (3.4-5.0); BUN Creatinine Ratio 10.2 (10-20); Blood Urea Nitrogen 9 mg/dl (7-18); Calcium 10.5 mg/dl (8.5-10.1); Carbon Dioxide 28 mmol/L (21-32); Chloride 109 mmol/L (98-107); Creatinine Clr Calc Pharmacy 103.5 ml/min; Est GFR (African American) 85.9 ml/min; Est GFR (Non-African American) 74.1 ml/min; Glucose 100 mg/dl (70-99); Lipase 79 U/L (73-393); Potassium 3.9 mmol/L (3.5-5.1); Sodium 141 mmol/L (136-145)
[2020-12-12 22:26] LABS: Albumin Globulin Ratio 0.8 (0.9-2); Alkaline Phosphatase 115 U/L (45-117); Aspartate Aminotransferase 8 U/L (15-37); Bilirubin,Total 0.3 mg/dl (0.2-1); Globulin 4.4 gm/dl (2.5-4.0); Total Protein 8.1 gm/dl (6.4-8.2); Troponin I < 0.015 ng/ml (0-0.045)
[2020-12-13] MEDS ORDERED: HYDROmorphone INJ 1 MG/ML SYRINGE IV STA (00:12)
[2020-12-13 00:26] LABS: Appearance Urine Clear (Clear); Bacteria Urine Automated 1+ (Negative); Bilirubin Urine Negative (Negative); Blood Urine 1+ (Negative); Color Urine Yellow; Epithelial Cell Urine Auto >30 /lpf (0-5); Glucose Urine UA Negative (Negative); Ketones Urine Negative (Negative); Leukocyte Esterase Urine Negative (Negative); Nitrite Urine Negative (Negative); Protein Urine Negative (Negative); Specific Gravity Urine 1.019 (1.000-1.030); Urobilinogen Urine Negative (Negative)
[2020-12-13] MEDS ORDERED: tiZANidine HCL 4 MG TABLET PO PRN (02:01)
[2020-12-13] MEDS ORDERED: FUROSEMIDE 40 MG TAB PO PRN (02:01)
[2020-12-13] MEDS ORDERED: NITROGLYCERIN SL 0.4 MG/TAB TAB SL PRN (02:01)
[2020-12-13] MEDS ORDERED: ACETAMINOPHEN 325 MG TAB PO PRN (02:01)
[2020-12-13] MEDS ORDERED: POLYETHYLENE (MIRALAX) 17 GM PACK PO PRN (02:01)
[2020-12-13] MEDS ORDERED: MoRPHine SULFATE IR 15 MG TAB (IMMEDIATE RELEASE) PO ONE (02:46)
[2020-12-13] MEDS ORDERED: GLUCAGON FOR INJ 1 MG VIAL IM PRN (03:15)
[2020-12-13] MEDS ORDERED: GLUCOSE 40% GEL 15 GM TUBE PO PRN (03:15)
[2020-12-13] MEDS ORDERED: GLUCOSE 10 TABS/TUBE PO PRN (03:15)
[2020-12-13] MEDS ORDERED: DEXTROSE 50% 50 ML SYRINGE IV PRN (03:15)
[2020-12-13] MEDS ORDERED: CARBOHYDRATES FOR HYPOGLYCEMIA PO PRN (03:15)
[2020-12-13] MEDS: IBUPROFEN 200 MG TAB PO PRN (05:49)
[2020-12-13] MEDS: ENOXAPARIN INJ 40 MG/0.4 ML SYR SQ SCH ×2 (05:49→17:50)
[2020-12-13] MEDS: LEVOTHYROXINE SODIUM 125 MCG TABLET PO SCH (05:50)
[2020-12-13] MEDS: ONDANSETRON INJ 2 MG/ML 2 ML VIAL IV PRN ×2 (06:29→18:43)
[2020-12-13] MEDS: HYDROmorphone INJ 0.5 MG/0.5 ML SYR IV PRN ×3 (06:29→16:57)
[2020-12-13 06:43] LABS: Basophils # (auto) 0.02 K/uL (0-0.2); Basophils % (auto) 0.2 %; Eosinophils # (auto) 0.12 K/uL (0-0.5); Hematocrit (blood only) 45.9 % (37-47); Hemoglobin 15.1 g/dL (12.0-16.0); Immature Granulocytes # (auto) 0.02 K/uL (0.00-0.02); Immature Granulocytes % (auto) 0.2 %; Lymphocytes # (auto) 3.94 K/uL (1.2-3.4); Lymphocytes % (auto) 33.6 %; Mean Corpuscular Hemoglobin 30.1 pg (25-34); Mean Corpuscular Hgb Conc 32.9 g/dL (32-36); Mean Corpuscular Volume 91.6 fL (80-100); Mean Platelet Volume 10.3 fL (7.4-10.4); Monocytes # (auto) 0.63 K/uL (0.11-0.59); Monocytes % (auto) 5.4 %; Neutrophils # (auto) 6.98 K/uL (1.4-6.5); Neutrophils % (auto) 59.6 %; Platelet Count 244 K/uL (130-400); RDW Coefficient of Variation 13.7 % (11.5-14.5); RDW Standard Deviation 45.8 fL (36.4-46.3); Red Blood Count 5.01 M/uL (4.2-5.4); White Blood Count 11.71 K/uL (4.8-10.8)
[2020-12-13 06:59] LABS: BUN Creatinine Ratio 10.2 (10-20); Calcium 9.7 mg/dl (8.5-10.1); Creatinine Clr Calc Pharmacy 109.3 ml/min; Est GFR (African American) 91.9 ml/min; Est GFR (Non-African American) 79.3 ml/min; Magnesium 2.2 mg/dl (1.8-2.4); Potassium 3.7 mmol/L (3.5-5.1)
--- NOTE | 2020-12-13 07:40 | Electrocardiogram Report ---
Test Reason : Blood Pressure : / mmHG Vent. Rate : 069 BPM Atrial Rate : 069 BPM P-R Int : 172 ms QRS Dur : 074 ms QT Int : 394 ms P-R-T Axes : 067 001 054 degrees QTc Int : 422 ms Normal sinus rhythm Normal ECG When compared with ECG of 15-NOV-2020 19:12, No significant change was found Confirmed by Desean Villaseñor ([id number]) on 12/13/2020 7:40:06 AM Referred By: REFERRED SELF Confirmed By:Hiro Villaseñor
[2020-12-13] MEDS: INSULIN ASPART 100 UNITS/ML 3 ML PEN SC SCH ×4 (09:01→20:56)
[2020-12-13] MEDS: NICOTINE 21 MG/24 HR TDSY TD SCH (09:06)
[2020-12-13] MEDS: DULoxetine HCL 60 MG CAP PO SCH (09:07)
[2020-12-13] MEDS: DULoxetine HCL 30 MG CAP PO SCH (09:07)
[2020-12-13] MEDS: ASPIRIN 81 MG ECTAB PO SCH (09:08)
[2020-12-13] MEDS: MoRPHine SULFATE CR 15 MG TABCR PO SCH ×3 (09:24→21:38)
--- NOTE | 2020-12-13 10:51 | History and Physical Report ---
DATE OF ADMISSION: 12/13/2020. CHIEF COMPLAINT: Severe back pain. HISTORY OF PRESENT ILLNESS: This is a 50-year-old female with past medical history significant for hypothyroidism, prediabetes, irritable bowel syndrome, fibromyalgia, migraine, chronic pain syndrome, opiate dependence, tobacco abuse, generalized anxiety disorder, depression. The patient was initially in the hospital around 11/17/2020, because she fell in porch in sister's place. She had multiple studies including thoracic, cervical and lumbar spine MRI and also thoracic spine and lumbar spine, head CT and chest CT and cervical CT and abdominal CT at that time and she was sent home, but on 11/17/2020 she was admitted with severe back pain and ambulatory dysfunction and she was discharged and followed up with Neurosurgery in [place] and no surgery was planned and at that time the numbness in the lower extremity was improving and she is supposed to follow pain management.Patient says she talked to on phone and said no steroid shot at this time.She got admitted again on 11/18/2020, again with same problem and she was found to have acute hypercalcemia and thought to be from hyperparathyroidism and she also got seen by Orthopedics and they also recommended nonoperative management. She was discharged. She comes again because of ongoing back pain. The numbness and the pain in the lower extremities is increased, but she is having lot of pain in the back and the pain medicines at home, which she is taking is not helping much. She has had an unsteady gait. She is using a walker at home because of pain. Denies any constipation, no blood or black stools. Normal bladder movements. Today because of pain she was vomiting and not able to eat. Otherwise appetite is okay. No chest pain or shortness of breath, no cough, no fever, no chills, no headache, no blurred visions, no earache, no runny nose, no sore throat. No abdominal pain. ALLERGIES: GABAPENTIN, TRAMADOL, CHLORPHENIRAMINE, GUAIFENESIN, METOCLOPRAMIDE. PAST MEDICAL HISTORY: As mentioned above. PAST SURGICAL HISTORY: Cervical lymph node biopsy, , colonoscopy, cystoscopy, EGD with biopsy, lumbar spinal injection, laparoscopic appendectomy, ligation of oviduct, partial hysterectomy, cholecystectomy, video capsule endoscopy. MEDICATIONS: The patient is on Tylenol 1000 mg p.o. q. 6 hours p.r.n., aspirin 81 mg p.o. daily, duloxetine 90 mg p.o. daily, Lasix 40 mg p.o. daily p.r.n., ibuprofen 400 mg p.o. q. 6 hours p.r.n., levothyroxine 250 mcg p.o. a.m., metformin 500 mg p.o. daily, morphine 15 mg p.o. t.i.d. p.r.n. and morphine long-acting 50 mg p.o. t.i.d., nitroglycerin 0.4 mg sublingual p.r.n., MiraLax 17 g p.o. daily p.r.n., tizanidine 2 mg p.o. q. 6 hours p.r.n. FAMILY HISTORY: Significant for mother has CVA question syndrome, ACTH secreting tumor. Father had bladder cancer at 75. Sister has migraine, back surgeries. Maternal grandmother had cervical cancer. Maternal grandfather had COPD. Paternal grandfather had prostate cancer. SOCIAL HISTORY: , smokes quarter pack a day for 20 years. Alcohol, rarely. No drug use. REVIEW OF SYSTEMS: As per HPI. Rest of the review of systems is negative. PHYSICAL EXAMINATION: GENERAL: The patient is obese, not in acute distress. VITAL SIGNS: Temperature 36.8, pulse 93, respiratory rate 15, blood pressure 116/71, oxygen 98% on room air. HEENT: Pupils equal, round and reactive to light. Oral mucosa moist. NECK: No JVD, no neck masses. HEART: S1 and S2, regular rate and rhythm. No murmur, no gallop. RESPIRATORY SYSTEM: Normal AP diameter. No accessory muscle use. No wheezing, no crackles. ABDOMEN: Soft, bowel sounds present, nontender, nondistended. CENTRAL NERVOUS SYSTEM: Cranial nerves II-XII grossly intact, nonfocal. EXTREMITIES: No edema, painful movements of lower extremities. Sensation intact. LABORATORY DATA: WBC is 9.6, hemoglobin 15.9, hematocrit 47.6, platelets 256. Sodium 141, potassium 3.9, chloride 109, bicarbonate 29, BUN 9, creatinine 0.9, serum glucose 100, calcium 10.4, total bilirubin 0.3, AST 8, ALT 40, alkaline phosphatase 115. Troponin I less than 0.015. Lipase 79. Urinalysis, +1 bacteria. SARS-CoV-2 PCR negative. EKG: Normal sinus rhythm, rate at 69, no significant change was found. ASSESSMENT AND PLAN: This 50-year-old female who fell recently, in the middle of November, comes in for ongoing severe back pain. 1. Severe back pain, recent traumatic fell lumbar L4-L5 disk protrusion on the MRI scan. Currently, the numbness in the lower extremity is improved, but still has a lot of back pain and some ambulatory dysfunction, followed up with Neurosurgery at [place], also pain management on the phone, currently no surgery, nonoperative management recommended. We will continue her home pain medication. Placed her on IV Dilaudid, PT, OT. If any concerns, we will consult pain management while the patient is in the hospital. 2. History of hypercalcemia. In the last admission PTH was elevated. An outpatient parathyroid scan was okay. Currently, her calcium is 10.5,Needs follow up with Nephrology. 3. History of cardiomyopathy. No signs of volume overload, we will monitor. 4. Anxiety and depression: Continue home medication. 5. Hypothyroidism. Continue Synthroid. 6. Prediabetes. We will place on insulin sliding scale and diabetic diet. Follow HbA1c levels. 7. Deep venous thrombosis prophylaxis, placed on Lovenox. DISPOSITION: Closely monitor in observation and medical floor. PT/OT. Social service to help with discharge planning. Level 1 full code. Job ID: [id number] MTDD
--- NOTE | 2020-12-13 16:21 | Hospitalist Progress Note ---
Date of Service December 13, 2020 Assessment & Plan (1) Intractable back pain: Patient with intractable back pain, patient sustained a fall approximately a month ago Fell down on steps of stairs, Is been having ongoing back pain with radiation down to her right leg Follows with Dr. Barr pain management, with no improvement of discomfort Admitted for intractable pain, Currently reports pain is moderately controlled, She had very recent MRI of lumbar spine and CT scan Ordered for spine orthopedics Dr. Martinez to be consulted Patient is already on Zanaflex for muscle spasm Pain management consult requested CODE STATUS: Full code Disposition: Expected to be discharged home when medically stable, PT OT evaluation quested Admission and Anticipated Discharge Date Admission Date: December 13, 2020 Subjective Follow-up visit for intractable back pain: Patient reports her back pain has not improved, still 6 out of 10 at rest, increased to 8-10 with minimal activity Unable to find a comfortable position Pain starts from a lower back, with radiation down to her right buttock right upper thigh and knee Able to walk, without significant balance or gait disturbance No fever or chills, denies of any shortness of breath , no chest pain or discomfort No urinary incontinence Review of Systems Review of Systems: All systems reviewed & are unremarkable except as noted in HPI & below Physical Exam Constitutional: WD/WN, vitals as above + obese Eyes: + anicteric sclerae ENMT: external ear and nose normal, oropharynx normal Neck: normal visual inspection Respiratory: normal respiratory effort, lungs clear to auscultation Cardiovascular: RRR, no murmur, no edema Gastrointestinal (Abdomen): normal bowel sounds, soft, nontender, no hepatosplenomegaly Musculoskeletal: Low back pain, unable to do straight leg rising test secondary to severe back pain Skin: no rashes, warm and dry Neurologic: PERRL, EOMI, accommodation nl, no face palsy, no dysarthria Psychiatric: A+Ox3, euthymic affect Results & Data Results & Data ([facility]) Vital Signs (Past 12 Hours) Vital Signs Temp Pulse Resp BP Pulse Ox 12/13/20 15:35 36.8 C 63 16 141/75 H 95 12/13/20 07:39 36.6 C 64 16 114/76 93
[2020-12-13] MEDS: MoRPHine SULFATE IR 15 MG TAB (IMMEDIATE RELEASE) PO PRN (18:42)
[2020-12-14] MEDS: HYDROmorphone INJ 0.5 MG/0.5 ML SYR IV PRN ×3 (01:20→22:35)
[2020-12-14] MEDS: ONDANSETRON INJ 2 MG/ML 2 ML VIAL IV PRN ×2 (01:20→12:03)
[2020-12-14] MEDS: MoRPHine SULFATE IR 15 MG TAB (IMMEDIATE RELEASE) PO PRN ×2 (04:31→16:48)
[2020-12-14] MEDS: ENOXAPARIN INJ 40 MG/0.4 ML SYR SQ SCH ×2 (06:35→18:20)
[2020-12-14] MEDS: LEVOTHYROXINE SODIUM 125 MCG TABLET PO SCH (06:35)
[2020-12-14 07:18] LABS: Estimated Average Glucose 123 mg/dl; Hemoglobin A1C 5.9 % (4.5-5.6)
[2020-12-14] MEDS ORDERED: BACLOFEN 10 MG TAB PO PRN (08:31)
[2020-12-14] MEDS ORDERED: methylPREDNISolone 4 MG TAB, 6 DAY TAPER PO SCH (08:45)
[2020-12-14] MEDS: INSULIN ASPART 100 UNITS/ML 3 ML PEN SC SCH ×4 (08:54→20:52)
[2020-12-14] MEDS ORDERED: methylPREDNISolone 4 MG TAB PO SCH ×2 (09:00→13:00)
[2020-12-14] MEDS: MoRPHine SULFATE CR 15 MG TABCR PO SCH ×3 (09:10→20:51)
[2020-12-14] MEDS: DULoxetine HCL 30 MG CAP PO SCH (09:11)
[2020-12-14] MEDS: ASPIRIN 81 MG ECTAB PO SCH (09:11)
[2020-12-14] MEDS: DULoxetine HCL 60 MG CAP PO SCH (09:11)
[2020-12-14] MEDS: NICOTINE 21 MG/24 HR TDSY TD SCH (09:12)
--- NOTE | 2020-12-14 09:29 | Pain Management Consultation ---
Date of Consultation December 14, 2020 Assessment & Plan (1) Bulging lumbar disc: 1. On her MRI imaging from 11/15/2020 she is noted to have a small broad- based posterior disc bulge with a small right paracentral focal disc protrusion. She has responded favorably in the past to epidural steroid injections under the direction of Dr. Barr. Recommend she follow-up with him as an outpatient. 2. In the interim, recommend Medrol Dosepak, baclofen 10 mg p.o. twice daily as needed, and Keppra 250 mg p.o. twice daily. LFTs were noted to be within normal limits. Keppra is recommended as she has a history of anaphylaxis with severe facial swelling to gabapentin. 3. No changes to her opiates are recommended at this time. 4. There are no plans for interventional pain management to be performed during this admission. She should follow up with Dr. Barr as an outpatient. 5. Recommend consideration of short course of physical therapy post discharge. 6. Thank you very much for this consultation, please call with any questions. 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 She states that she fell off her sister's porch mid November 2020 and has had worsening pain since, but has been treated in the past for low back pain and radicular symptoms most recently with a epidural steroid injection by Dr. Barr in June 2020. She has plans to see him again as an outpatient after her discharge from the hospital. She states that she is having difficulty ambulating secondary to pain but denies true weakness. She states that the pain is sharp shooting with mild cramping in the axial spine ranging between 8-9 out of 10. She denies bowel or bladder incontinence, motor weakness, footdrop, fever, chills, night sweats. She has been on a multitude of medications in the past (severe facial swelling with gabapentin and tramadol, she reports agitation with oral steroids but not with epidural steroids in the past) and has a known diagnosis of fibromyalgia. She reports her opiates have been stable at MS Contin 15 mg every 8hr and MSIR 15 mg every 8hr. PDMP review confirms her dosing. She denies any side effects from her opiates including constipation or mental sedation. In addition, she has been evaluated by Dr. Hoyt and Dr. Martinez who deferred surgical intervention. Pain Assessment Full Body Front + Back: 1. 2. 3. [facility] Combined Pain Scale: 9-Agonizing - Cannot function. Uncontrolled screaming. Pain scale - at its best (0-10): 8 Pain scale - at its worst (0-10): 9 Allergies Allergy/AdvReac Type Severity Reaction Status Date / Time gabapentin Allergy Severe anaphylaxis Verified 12/12/20 21:57 tramadol Allergy Severe ANAPHYLAXIS Verified 12/12/20 21:58 chlorpheniramine Allergy Intermediate SHORTNESS Verified 12/12/20 21:57 OF BREATH guaifenesin Allergy Intermediate SHORTNESS Verified 12/12/20 21:57 OF BREATH metoclopramide AdvReac Intermediate anxiety Verified 12/12/20 21:57 Home Medications Medication Instructions Recorded Confirmed Type furosemide [Lasix] 40 mg PO QAM PRN 03/17/18 12/12/20 History nitroglycerin [Nitrostat] 0.4 mg SUBLINGUAL DIRECTED PRN 03/17/18 12/12/20 History morphine 15 mg PO TID 10/06/18 12/12/20 History levothyroxine 250 mcg PO QAM 12/28/19 12/12/20 History morphine 15 mg PO TID PRN 12/28/19 12/12/20 History aspirin [Aspirin Low Dose] 81 mg PO QAM 09/23/20 12/12/20 History duloxetine 60 mg PO DAILY 09/24/20 12/12/20 History metformin 500 mg PO DAILY 09/24/20 12/12/20 History duloxetine 30 mg PO DAILY 11/15/20 12/12/20 History polyethylene glycol 3350 [Miralax] 17 g PO DAILY PRN 11/15/20 12/12/20 History acetaminophen [Tylenol Extra 1,000 mg PO Q6H PRN 11/16/20 12/12/20 History Strength] ibuprofen 400 mg PO Q6H PRN 11/16/20 12/12/20 History tizanidine 2 mg PO Q6H PRN 11/16/20 12/12/20 History Pain History Pain Intensity Pain scale - at its best (0-10): 8 Pain scale - at its worst (0-10): 9 Patient History Medical History (Updated 12/14/20 @ 09:38 by Lindsey Martinez DO) Anxiety Atelectasis Cardiomyopathy 2014 - thought to be stress induced, reported normal dobutamine stress and echo after Chronic back pain Chronic pain syndrome Depression Fibromyalgia H/O traumatic brain injury Hypokalemia Hypothyroidism (Unknown) IBS (irritable bowel syndrome) Migraines Opiate dependence Tobacco abuse Surgical History Bilateral tubal ligation (Unknown) section (Unknown) H/O colonoscopy "2006 path normal" H/O cystoscopy H/O esophagogastroduodenoscopy "2006 path normal" Hx of appendectomy Hx of cholecystectomy Hx of hysterectomy S/P lymph node biopsy "deep cervical inflammatory node 2007" Family History Other Diabetes Hypertension Thyroid disorder Social History Smoking Status: Current every day smoker Tobacco Type: Cigarettes Cigarettes Per Day: 10; Second Hand Exposure: Yes; Do You Dip or Chew Tobacco: No; Tobacco Cessation Education Requested by Patient: No Hx Alcohol Use: No Hx Substance Use: No Preferred Language: Greek Communication Ability: Effective Visual Impairment: Partially Limited Intermediate Manager Required: No Beliefs That Will Affect Care: None marital status: Current Living Situation: Spouse and Family Other Information That Helps Us Care for You: No Feels Safe at Home: Yes Safety Concerns: Feels Safe At This Time Assistive Devices: None Physical Exam Physical Exam: Constitutional: Well-developed, well-nourished, healthy- appearing, obese, sleeping on entrance to the room. Psych: Awake, alert, and oriented 3 with normal affect and mood. Recent memory appears grossly intact Eyes: Pupils are equally round and reactive to light with normal size pupils, eyelids appear normal Ear, nose, mouth, and throat: Moist nasal and oral membranes, lips and tongues appear normal, no external ear abnormalities are noted Neck: The trachea is midline without deviation and no thyromegaly is noted Respiratory: Normal respiratory effort without distress, no audible wheezes or rhonchi CV: Normal S1 and S2, 2+ dorsalis pedis and posterior tibial pulses bilaterally Musculoskeletal: Head is normocephalic and atraumatic, gait not observed but patient is able to logroll with mild difficulty within the bed. Cervical: Lordotic curve: Normal Range of motion is normal with extension, flexion, side-bending, rotation Strength: Strength is grossly equal bilaterally with 5 out of 5 strength in all planes Lumbar: Lordotic curve: Normal Range of motion is slightly decreased in all planes Tenderness: Mildly tender over the axial midline L4-S1 Facet provocation: Negative bilaterally Straight leg raise: Negative on the left, positive on the right worse with Achilles stretch Step-off injuries: None Strength: Strength is equal bilaterally with 5 out of 5 strength in all planes Sensation of lower extremities: Intact bilaterally Deep tendon reflexes: Rated at 2+ in bilateral L4 and S1 Myofascial spasm: Mild lumbar paravertebral spasm spasm. No discrete trigger points noted Greater trochanters: Nontender bilaterally Sacroiliac joints: Nontender bilaterally Pathologic reflexes noted: None Skin: No rashes, lesions, ulcers, or induration noted Neuro: No nystagmus noted, the tongue is midline, the patient is able to rotate their head bilaterally : Deferred Results ([facility]) Diagnostic Review MRI: non enhanced, reports reviewed, images reviewed and findings discussed with patient MRI Findings: 11/15/20 LUMBAR SPINE MRI HISTORY: Fall. lower back pain TECHNIQUE: Multiplanar multisequence MRI of the lumbar spine was performed without the use of contrast. COMPARISON: Lumbar spine CT 11/15/2020. FINDINGS: For the purpose of the report the L5-S1 disc space will be located on axial image 23 of 26. No fracture or subluxation. The conus terminates at the L1 level. Paravertebral soft tissues are unremarkable. Mild disc space narrowing and disc desiccation at L4-L5. The remaining disc spaces are preserved. L1-L2: No significant central canal or neural foraminal narrowing. L2-L3: No significant central canal or neural foraminal narrowing. L3-L4: No significant central canal or neural foraminal narrowing. L4-L5: Small broad-based posterior disc bulge with a small right paracentral focal disc protrusion. This abuts but does not displace the transiting right L5 nerve root. There is also mild bilateral neural foraminal narrowing at this level. L5-S1: No significant central canal or neural foraminal narrowing. IMPRESSION: 1. No fracture or subluxation within the lumbar spine. 2. Small right paracentral focal disc protrusion at L4-5 which abuts but does not displace the transiting right L5 nerve root. 11/15/20 Thoracic Spine MRI WNL 11/15/20 Cervical Spine MRI 1. No fracture or subluxation within the cervical spine. 2. Minor degenerative changes as described above. 3. Normal cervical spinal cord. CT: non enhanced, reports reviewed and findings discussed with patient CT Findings: 11/17/20 CT SCAN OF THE LUMBAR SPINE WITHOUT IV CONTRAST CLINICAL HISTORY: Low back pain. Tingling sensation in the lower extremities. COMPARISON STUDY: CT and MRI of the lumbar spine dated 11/15/2020. TECHNIQUE: CT scan of the lumbar spine is performed from the lower thoracic spine to the sacrum. Images are reviewed in the axial, sagittal, and coronal planes. IV contrast was not administered for this examination. A dose lowering technique was utilized adhering to the principles of ALARA. CT DOSE: 1800.73 mGy.cm FINDINGS: The skeletal structures are well mineralized. There is no evidence of fracture or malalignment involving the lumbar spine. Vertebral body height and alignment are maintained. The transverse and spinous processes appear intact. There is no spondylolysis. No lytic or blastic lesion is seen. The disc spaces are maintained. A small posterior disc bulge is noted at L4-L5. There is no CT evidence of large disc herniation or high-grade central canal stenosis. The visualized sacrum and bony pelvis appear intact. The paraspinous soft tissues are within normal limits. IMPRESSION: 1. No osseous abnormality is identified involving the lumbar spine. No change from studies dated 11/15/2020. 2. Posterior disc bulge is again seen at L4-L5.
[2020-12-14] MEDS: levETIRAcetam 250 MG TAB PO SCH ×2 (09:31→20:51)
--- NOTE | 2020-12-14 09:47 | Orthopedic Consultation ---
Date of Consultation December 14, 2020 Assessment & Plan (1) Back pain: Plan at this time her most recent imaging demonstrates some evidence of modest degenerative change at L4-L5 but no gross neural compression. She is not a surgical candidate. I explained this to her directly and she understands. She would most likely benefit from a course of physical therapy focusing on biomechanics of lifting as she is managing her 5-year-old grandchild. Present on Admission?: Yes History of Present Illness Reason for Consultation: Back pain Attending Physician: Eugenia Bowles MD History of Present Illness This is a 50-year-old female who presents with marked decline in status with worsening back pain and bilateral leg pain. She states her symptoms began the lumbosacral junction radiate down the anterior thighs did not extend below the knee. Right is worse than the left. She does note an fall approximately 4 weeks ago that exacerbated her symptoms. At this time she denies any significant radicular pain while she is in bed. She has mostly axial symptoms. She has difficulty with ambulation. Allergies Allergy/AdvReac Type Severity Reaction Status Date / Time gabapentin Allergy Severe anaphylaxis Verified 12/12/20 21:57 tramadol Allergy Severe ANAPHYLAXIS Verified 12/12/20 21:58 chlorpheniramine Allergy Intermediate SHORTNESS Verified 12/12/20 21:57 OF BREATH guaifenesin Allergy Intermediate SHORTNESS Verified 12/12/20 21:57 OF BREATH metoclopramide AdvReac Intermediate anxiety Verified 12/12/20 21:57 Home Medications Medication Instructions Recorded Confirmed Type furosemide [Lasix] 40 mg PO QAM PRN 03/17/18 12/12/20 History nitroglycerin [Nitrostat] 0.4 mg SUBLINGUAL DIRECTED PRN 03/17/18 12/12/20 History morphine 15 mg PO TID 10/06/18 12/12/20 History levothyroxine 250 mcg PO QAM 12/28/19 12/12/20 History morphine 15 mg PO TID PRN 12/28/19 12/12/20 History aspirin [Aspirin Low Dose] 81 mg PO QAM 09/23/20 12/12/20 History duloxetine 60 mg PO DAILY 09/24/20 12/12/20 History metformin 500 mg PO DAILY 09/24/20 12/12/20 History duloxetine 30 mg PO DAILY 11/15/20 12/12/20 History polyethylene glycol 3350 [Miralax] 17 g PO DAILY PRN 11/15/20 12/12/20 History acetaminophen [Tylenol Extra 1,000 mg PO Q6H PRN 11/16/20 12/12/20 History Strength] ibuprofen 400 mg PO Q6H PRN 11/16/20 12/12/20 History tizanidine 2 mg PO Q6H PRN 11/16/20 12/12/20 History Patient History Medical History (Updated 12/14/20 @ 09:38 by Lindsey Martinez DO) Anxiety Atelectasis Cardiomyopathy 2014 - thought to be stress induced, reported normal dobutamine stress and echo after Chronic back pain Chronic pain syndrome Depression Fibromyalgia H/O traumatic brain injury Hypokalemia Hypothyroidism (Unknown) IBS (irritable bowel syndrome) Migraines Opiate dependence Tobacco abuse Surgical History Bilateral tubal ligation (Unknown) section (Unknown) H/O colonoscopy "2006 path normal" H/O cystoscopy H/O esophagogastroduodenoscopy "2006 path normal" Hx of appendectomy Hx of cholecystectomy Hx of hysterectomy S/P lymph node biopsy "deep cervical inflammatory node 2007" Family History Other Diabetes Hypertension Thyroid disorder Social History Smoking Status: Current every day smoker Tobacco Type: Cigarettes Cigarettes Per Day: 10; Second Hand Exposure: Yes; Do You Dip or Chew Tobacco: No; Tobacco Cessation Education Requested by Patient: No Hx Alcohol Use: No Hx Substance Use: No Preferred Language: Mexican Communication Ability: Effective Visual Impairment: Partially Limited Parimutuel Cashier Required: No Beliefs That Will Affect Care: None marital status: Current Living Situation: Spouse and Family Other Information That Helps Us Care for You: No Feels Safe at Home: Yes Safety Concerns: Feels Safe At This Time Assistive Devices: None Physical Exam Physical Exam: On exam she does have full sensation to light touch and cold bilateral extremities. Plantar flexion dorsiflexion quadriceps intact. Results & Data ([facility]) Vital Signs (Past 12 Hours) Vital Signs Temp Pulse Resp BP Pulse Ox 07/12/21 07:50 36.3 C L 64 16 110/67 92 12/13/20 22:21 36.6 C 68 18 153/93 H 94 (1) Back pain Back pain laterality: midline Back pain location: low back pain Chronicity: acute Sciatica presence: without sciatica Qualified Code(s): M54.5 - Low back pain
[2020-12-14] MEDS: SODIUM CHLORIDE 0.9% 1000ML 1,000 ML IV SCH (12:03)
--- NOTE | 2020-12-14 18:43 | Hospitalist Progress Note ---
Date of Service December 14, 2020 Assessment & Plan (1) Intractable back pain: Patient with intractable back pain, patient sustained a fall approximately a month ago Fell down on steps of stairs, Is been having ongoing back pain with radiation down to her right leg Follows with Dr. Barr pain management, with no improvement of discomfort Admitted for intractable pain, Currently reports pain is moderately controlled, She had very recent MRI of lumbar spine and CT scan Appreciate input from spinal orthopedics Dr. Martinez, patient does not need any surgical intervention, recommends PT OT Patient is already on Zanaflex for muscle spasm Pain management consult requested-appreciated, oral steroids was ordered for radicular pain, patient refused as steroids makes her anxious and delirious CODE STATUS: Full code Disposition: Expected to be discharged home when medically stable, PT OT evaluation quested Admission and Anticipated Discharge Date Admission Date: December 14, 2020 Subjective Follow-up visit for intractable back pain: Continues to complain of back pain, now has ongoing nausea, request for clear liquid diet on the No vomiting episode [place] that she is getting dehydrated, wanted to be on IV fluids, Seen at bedside, Patient sitting up on edge of the bed says back pain remains the same, was seen by pain management, was recommended prednisone taper, patient refused to take steroids, as it makes her delirious/severely anxious No fever chills no shortness of breath or chest heaviness Has ongoing nausea, no abdominal pain no diarrhea or loose stool Denies of any feelings of dizzy spell or lightheadedness, Review of Systems Review of Systems: All systems reviewed & are unremarkable except as noted in HPI & below Physical Exam Constitutional: WD/WN, vitals as above + obese Eyes: PERRL, conjunctivae normal, anicteric sclerae ENMT: external ear and nose normal, oropharynx normal Neck: normal visual inspection Respiratory: normal respiratory effort, lungs clear to auscultation Cardiovascular: RRR, no murmur, no edema Gastrointestinal (Abdomen): normal bowel sounds, soft, nontender, no hepatosplenomegaly Skin: no rashes, warm and dry Neurologic: PERRL, EOMI, accommodation nl, no face palsy, no dysarthria Psychiatric: A+Ox3, euthymic affect Results & Data Results & Data ([facility]) Vital Signs (Past 12 Hours) Vital Signs Temp Pulse Resp BP BP Pulse Ox 12/14/20 15:59 36.6 C 54 L 16 115/70 92 12/14/20 07:50 36.3 C L 64 16 110/67 92
[2020-12-14] MEDS ORDERED: DICLOFENAC SOD 1% GEL 100 GM TUBE EXT PRN (18:44)
[2020-12-14] MEDS: LIDOCAINE 5% 1 PATCH TD SCH (20:49)
[2020-12-15] MEDS: SODIUM CHLORIDE 0.9% 1000ML 1,000 ML IV SCH ×2 (00:56→16:10)
[2020-12-15] MEDS: ONDANSETRON INJ 2 MG/ML 2 ML VIAL IV PRN ×2 (04:30→12:28)
[2020-12-15] MEDS: MoRPHine SULFATE IR 15 MG TAB (IMMEDIATE RELEASE) PO PRN ×3 (04:30→16:10)
[2020-12-15] MEDS: LEVOTHYROXINE SODIUM 125 MCG TABLET PO SCH (05:33)
[2020-12-15] MEDS: ENOXAPARIN INJ 40 MG/0.4 ML SYR SQ SCH ×2 (05:33→17:59)
[2020-12-15] MEDS ORDERED: methylPREDNISolone 4 MG TAB PO SCH ×2 (07:00→21:00)
[2020-12-15] MEDS: HYDROmorphone INJ 0.5 MG/0.5 ML SYR IV PRN ×2 (07:36→19:16)
[2020-12-15] MEDS: ASPIRIN 81 MG ECTAB PO SCH (08:10)
[2020-12-15] MEDS: DULoxetine HCL 60 MG CAP PO SCH (08:10)
[2020-12-15] MEDS: levETIRAcetam 250 MG TAB PO SCH ×2 (08:10→20:56)
[2020-12-15] MEDS: DULoxetine HCL 30 MG CAP PO SCH (08:10)
[2020-12-15] MEDS: INSULIN ASPART 100 UNITS/ML 3 ML PEN SC SCH ×4 (08:11→20:42)
[2020-12-15] MEDS: LIDOCAINE 5% 1 PATCH TD SCH (08:12)
[2020-12-15] MEDS: NICOTINE 21 MG/24 HR TDSY TD SCH (08:12)
[2020-12-15] MEDS: MoRPHine SULFATE CR 15 MG TABCR PO SCH ×3 (08:13→20:56)
[2020-12-15] MEDS: IBUPROFEN 200 MG TAB PO PRN (10:00)
--- NOTE | 2020-12-15 18:00 | Hospitalist Progress Note ---
Date of Service December 15, 2020 Assessment & Plan (1) Intractable back pain: Patient with intractable back pain, patient sustained a fall approximately a month ago Fell down on steps of stairs, Is been having ongoing back pain with radiation down to her right leg Follows with Dr. Barr pain management, with no improvement of discomfort Admitted for intractable pain, Currently reports pain is moderately controlled, She had very recent MRI of lumbar spine and CT scan Appreciate input from spinal orthopedics Dr. Martinez, patient does not need any surgical intervention, recommends PT OT Patient is already on Zanaflex for muscle spasm Pain management consult requested-appreciated, oral steroids was ordered for radicular pain, patient refused as steroids makes her anxious and delirious pt reports back pain much better able to walk with no discomfort will do PT/Ot as out patient CODE STATUS: Full code Disposition: Expected to be discharged home [facility] PT OT evaluation quested Admission and Anticipated Discharge Date Admission Date: December 14, 2020 Subjective Follow-up visit for intractable back pain: Continues to complain of back pain, now has ongoing nausea, request for clear liquid diet on the No vomiting episode [place] that she is getting dehydrated, wanted to be on IV fluids, Seen at bedside, Patient sitting up on edge of the bed says back pain remains the same, was seen by pain management, was recommended prednisone taper, patient refused to take steroids, as it makes her delirious/severely anxious No fever chills no shortness of breath or chest heaviness Has ongoing nausea, no abdominal pain no diarrhea or loose stool Denies of any feelings of dizzy spell or lightheadedness, Physical Exam Constitutional: WD/WN, vitals as above + obese Eyes: PERRL, conjunctivae normal, anicteric sclerae + anicteric sclerae ENMT: external ear and nose normal, oropharynx normal Neck: normal visual inspection Respiratory: normal respiratory effort, lungs clear to auscultation Cardiovascular: RRR, no murmur, no edema Gastrointestinal (Abdomen): normal bowel sounds, soft, nontender, no hepatosplenomegaly Skin: no rashes, warm and dry Neurologic: PERRL, EOMI, accommodation nl, no face palsy, no dysarthria Psychiatric: A+Ox3, euthymic affect Results & Data Results & Data ([facility]) Vital Signs (Past 12 Hours) Vital Signs Temp Pulse Resp BP Pulse Ox 12/15/20 15:21 36.2 C L 62 16 136/82 95 12/15/20 08:00 36.9 C 60 16 136/68 91
[2020-12-16] MEDS: HYDROmorphone INJ 0.5 MG/0.5 ML SYR IV PRN ×2 (00:16→09:53)
[2020-12-16] MEDS: ONDANSETRON INJ 2 MG/ML 2 ML VIAL IV PRN ×2 (00:17→08:23)
[2020-12-16] MEDS: ENOXAPARIN INJ 40 MG/0.4 ML SYR SQ SCH (05:49)
[2020-12-16] MEDS: LEVOTHYROXINE SODIUM 125 MCG TABLET PO SCH (05:49)
[2020-12-16] MEDS: SODIUM CHLORIDE 0.9% 1000ML 1,000 ML IV SCH (05:50)
[2020-12-16] MEDS: MoRPHine SULFATE IR 15 MG TAB (IMMEDIATE RELEASE) PO PRN ×2 (05:53→15:48)
[2020-12-16 06:38] LABS: Hematocrit (blood only) 41.2 % (37-47); Hemoglobin 13.6 g/dL (12.0-16.0); Mean Corpuscular Volume 87.8 fL (80-100); Platelet Count 205 K/uL (130-400); RDW Standard Deviation 41.4 fL (36.4-46.3); Red Blood Count 4.69 M/uL (4.2-5.4); White Blood Count 7.59 K/uL (4.8-10.8)
[2020-12-16] MEDS ORDERED: methylPREDNISolone 4 MG TAB PO SCH (07:00)
[2020-12-16 07:10] LABS: Creatinine Clr Calc Pharmacy 130.6 ml/min; Est GFR (Non-African American) 98.3 ml/min
[2020-12-16] MEDS: MoRPHine SULFATE CR 15 MG TABCR PO SCH ×2 (08:23→13:46)
[2020-12-16] MEDS: levETIRAcetam 250 MG TAB PO SCH (08:24)
[2020-12-16] MEDS: DULoxetine HCL 60 MG CAP PO SCH (08:25)
[2020-12-16] MEDS: DULoxetine HCL 30 MG CAP PO SCH (08:25)
[2020-12-16] MEDS: ASPIRIN 81 MG ECTAB PO SCH (08:26)
[2020-12-16] MEDS: LIDOCAINE 5% 1 PATCH TD SCH (08:27)
[2020-12-16] MEDS: INSULIN ASPART 100 UNITS/ML 3 ML PEN SC SCH ×2 (09:48→13:41)
[2020-12-16] MEDS: NICOTINE 21 MG/24 HR TDSY TD SCH (10:37)
--- NOTE | 2020-12-16 16:19 | Hospitalist Progress Note ---
Date of Service December 16, 2020 Assessment & Plan (1) Intractable back pain: Plan: Intractable back pain: H/O fall 1 month ago --Lumbar CT from 11/16/20: No osseous abnormality is identified involving the lumbar spine. No change from studies dated 11/15/2020. Posterior disc bulge is again seen at L4-L5. Follows with Dr. Barr pain management Appreciate Orthopedics Input Not a surgical candidate as per Ortho P/OT eval-: Recommends to return home Zanaflex for muscle spasm Pain management consult requested-appreciated, oral steroids was ordered for radicular pain, patient refused as steroids makes her anxious and delirious H/O Hypercalcemia Work up done last admission PTH elevated Parathyroid Scan:No scintigraphic evidence for enlarged parathyroid glands. Currently normal Calcium levels Follow up as outpatient H/O Cardiomyopathy. No signs of volume overload monitor. Anxiety and depression: Continue home medication. Hypothyroidism Continue Synthroid. Prediabetes HbA1C::5.9 DVT Px: Lovenox SQ CODE STATUS: Full code Disposition: Home Admission and Anticipated Discharge Date Admission Date: December 14, 2020 Subjective Patient is seen and examined at bedside Denies any significant back pain States having nausea earlier today but no vomiting Denies chest pain, dyspnea, dizziness, abdominal pain Offers no other complaints Review of Systems Review of Systems: All systems reviewed, negative other than subjective. Physical Exam Physical Exam: Physical Exam: Vitals signs as noted above General Appearance:Obese, no apparent distress Head: normocephalic, Atraumatic Eyes: normal inspection, EOMI Neck: supple, Trachea midline Respiratory/Chest: Normal breath sounds, CTA, No accessory muscle use Cardiovascular: S1, S2, No murmur Abdomen/GI:Soft, Non tender, Bowel sounds present Extremities/Musculoskeletal:normal inspection, no edema Neurologic/Psych:AAOX3, grossly no focal neurological deficits Skin: normal color, warm Results & Data Results & Data ([facility]) Vital Signs (Past 12 Hours) Vital Signs Temp Pulse Resp BP Pulse Ox 12/16/20 06:53 36.8 C 64 16 116/64 96 Laboratory Results Short CBC 12/16/20 Range/Units 06:19 WBC 7.59 (4.8-10.8) K/uL Hgb 13.6 (12.0-16.0) g/dL Hct 41.2 (37-47) % Plt Count 205 (130-400) K/uL [facility] 12/16/20 06:19 Creatinine 0.72
--- NOTE | 2020-12-16 16:24 | Discharge Summary ---
Date of Service December 16, 2020 Admission HPI Per Admitting Provider CHIEF COMPLAINT: Severe back pain. HISTORY OF PRESENT ILLNESS: This is a 50-year-old female with past medical history significant for hypothyroidism, prediabetes, irritable bowel syndrome, fibromyalgia, migraine, chronic pain syndrome, opiate dependence, tobacco abuse, generalized anxiety disorder, depression. The patient was initially in the hospital around 11/17/2020, because she fell in porch in sister's place. She had multiple studies including thoracic, cervical and lumbar spine MRI and also thoracic spine and lumbar spine, head CT and chest CT and cervical CT and abdominal CT at that time and she was sent home, but on 11/17/2020 she was admitted with severe back pain and ambulatory dysfunction and she was discharged and followed up with Neurosurgery in [place] and no surgery was planned and at that time the numbness in the lower extremity was improving and she is supposed to follow pain management.Patient says she talked to on phone and said no steroid shot at this time.She got admitted again on 11/18/2020, again with same problem and she was found to have acute hypercalcemia and thought to be from hyperparathyroidism and she also got seen by Orthopedics and they also recommended nonoperative management. She was discharged. She comes again because of ongoing back pain. The numbness and the pain in the lower extremities is increased, but she is having lot of pain in the back and the pain medicines at home, which she is taking is not helping much. She has had an unsteady gait. She is using a walker at home because of pain. Denies any constipation, no blood or black stools. Normal bladder movements. Today because of pain she was vomiting and not able to eat. Otherwise appetite is okay. No chest pain or shortness of breath, no cough, no fever, no chills, no headache, no blurred visions, no earache, no runny nose, no sore throat. No abdominal pain. Admission Exam Per Admitting Provider PHYSICAL EXAMINATION: GENERAL: The patient is obese, not in acute distress. VITAL SIGNS: Temperature 36.8, pulse 93, respiratory rate 15, blood pressure 116/71, oxygen 98% on room air. HEENT: Pupils equal, round and reactive to light. Oral mucosa moist. NECK: No JVD, no neck masses. HEART: S1 and S2, regular rate and rhythm. No murmur, no gallop. RESPIRATORY SYSTEM: Normal AP diameter. No accessory muscle use. No wheezing, no crackles. ABDOMEN: Soft, bowel sounds present, nontender, nondistended. CENTRAL NERVOUS SYSTEM: Cranial nerves II-XII grossly intact, nonfocal. EXTREMITIES: No edema, painful movements of lower extremities. Sensation intact. Principal Diagnosis Intractable back pain Discharge Data Allergies Allergy/AdvReac Type Severity Reaction Status Date / Time gabapentin Allergy Severe anaphylaxis Verified 12/12/20 21:57 tramadol Allergy Severe ANAPHYLAXIS Verified 12/12/20 21:58 chlorpheniramine Allergy Intermediate SHORTNESS Verified 12/12/20 21:57 OF BREATH guaifenesin Allergy Intermediate SHORTNESS Verified 12/12/20 21:57 OF BREATH metoclopramide AdvReac Intermediate anxiety Verified 12/12/20 21:57 Consultations 12/12/20 23:06 ED Decision to Admit Stat 12/13/20 16:20 Consult Orthopedic Surgery Routine Consult Pain Management Routine Hospital Course (1) Intractable back pain: Intractable back pain: H/O fall 1 month ago --Lumbar CT from 11/16/20: No osseous abnormality is identified involving the lumbar spine. No change from studies dated 11/15/2020. Posterior disc bulge is again seen at L4-L5. Follows with Dr. Barr pain management Appreciate Orthopedics Input Not a surgical candidate as per Ortho P/OT eval-: Recommends to return home Zanaflex for muscle spasm Pain management consult requested-appreciated, oral steroids was ordered for radicular pain, patient refused as steroids makes her anxious and delirious H/O Hypercalcemia Work up done last admission PTH elevated Parathyroid Scan:No scintigraphic evidence for enlarged parathyroid glands. Currently normal Calcium levels Follow up as outpatient H/O Cardiomyopathy. No signs of volume overload monitor. Anxiety and depression: Continue home medication. Hypothyroidism Continue Synthroid. Prediabetes HbA1C::5.9 DVT Px: Lovenox SQ CODE STATUS: Full code Disposition: Home Total Time Total Time Spent Total Time Spent (In Minutes): 40 minutes Discharge Plan Discharge Items Patient Disposition: Home - Self-Care Reason For Visit: SEVERE BACK PAIN Discharge Diagnosis: Intractable back pain Activity: Per Instructions section Exercise/Sports: Gradually increase as tolerated Non-emergency contact: Primary Care Provider and Surgeon Call non-emergency contact if: you have any medication questions, your symptoms worsen, your pain is not controlled and your pain is concerning for you Follow-up/Referrals: Dajuan Bell DO [Primary Care Provider] - (Date & Time 12/21/2020 1:40 PM Provider Dajuan Bell DO Department [facility] ) Diet: Heart Healthy Addtl Attending Provider Instructions: Follow-up with your primary care physician Dr. Bell 12/21/2020 1:40 PM Follow up with as recommended Seek immediate medical attention if your symptoms reoccur or worsen Please take all medications as instructed on discharge list below. Please call if you have any questions or problems. You can reach a [facility] hospitalist on duty at [facility] 24 hours a day by calling [phone] Pending Studies at Discharge: No Stand-Alone Forms: My [facility] VouchedFor, Smoking Cessation Medications and DC Order Prescriptions: Continued furosemide [Lasix] 40 mg Tablet 40 mg PO QAM PRN (Reason: Edema) RF: 0 nitroglycerin [Nitrostat] 0.4 mg Tablet, Sublingual 0.4 mg Sublingual DIRECTED PRN (Reason: Chest Pain) RF: 0 morphine 15 mg tablet extended release 15 mg PO TID RF: 0 morphine 15 mg tablet 15 mg PO TID PRN (Reason: Pain) RF: 0 levothyroxine 125 mcg tablet 250 mcg PO QAM RF: 0 aspirin [Aspirin Low Dose] 81 mg Tablet,Delayed Release (Dr/Ec) 81 mg PO QAM RF: 0 metformin 500 mg tablet extended release 24 hr 500 mg PO DAILY RF: 0 duloxetine 60 mg capsule,delayed release(DR/EC) 60 mg PO DAILY RF: 0 polyethylene glycol 3350 [Miralax] 17 gram/dose Powder 17 g PO DAILY PRN (Reason: Constipation) RF: 0 duloxetine 30 mg capsule,delayed release(DR/EC) 30 mg PO DAILY RF: 0 tizanidine 2 mg tablet 2 mg PO Q6H PRN (Reason: MUSCLE SPASMS) RF: 0 acetaminophen [Tylenol Extra Strength] 500 mg Tablet 1,000 mg PO Q6H PRN (Reason: Pain) RF: 0 ibuprofen 200 mg Tablet 400 mg PO Q6H PRN (Reason: Pain) RF: 0 Discharge Orders: Discharge Order (Routine); Ordered 12/16/20 Ordered By: Tavo Maxwell/Other Patient Handouts: Relieving Back Pain Admission Data Admit Date/Time: 12/14/20 17:25 Attending Provider: Tavo Marks Admit Provider: Edward Mahoney Primary Care Provider: Dajuan Bell Other Providers: Edward Mahoney ; Blue Martinez Upendra Other Interventions: Discharge Summary Assessment (RN) Last Done: 12/16/20 16:20
[2020-12-17] MEDS ORDERED: methylPREDNISolone 4 MG TAB PO SCH (07:00)
[2020-12-18] MEDS ORDERED: methylPREDNISolone 4 MG TAB PO SCH (07:00)
[2020-12-19] MEDS ORDERED: methylPREDNISolone 4 MG TAB PO SCH (07:00)
--- NOTE | 2020-12-28 09:26 | Coding Query ---
CODING QUERY To promote full compliance with coding requirements relating to patient care, provider participation is requested in all cases of linux network systems administrator uncertainty. Please assist us with the question(s) below: Coding Question(s): The Discharge Summary documents Intractable Back Pain. There is documentation of history of a fall [address] lumbar [address] from 11/16/20 showing posterior disc bulge is again seen at L4-L5, and Zanaflex given for muscle spasm. Pain Management Consultation documents MRI imaging from 11/15/20 showing small broad-based posterior disc bulge with a small right paracentral focal disc protrusion. Documentation in the record documents history of Chronic Pain Syndrome. Please specify below, in your clinical opinion, regarding the most likely source of the Intractable Back Pain during this admission. ( x ) Most likely source is the disc bulge/disc protrusion. Please specify further below, regarding disc bulge/protrusion: ( x ) likely due to trauma from the fall ( ) not likely due to trauma ( ) other: Please Specify ( ) Most likely source is muscle spasm of the back. ( ) Most likely source is Chronic Pain Syndrome ( ) Most likely source is Other: Please Specify ( ) Intractable Back Pain with Unknown likely source Physician's Response(s): Thank you Kaylee Sherman Principal Diagnosis: "that condition established after study, to be chiefly responsible for occasioning the admission of the patient to the hospital for care." Co-Existing Principal Diagnosis: "when two or more diagnoses equally meet the criteria for principal diagnosis as determined by the circumstances of admission, diagnostic work up, and/or therapy provided, and the Alphabetic Index, Tabular List, or another coding guideline does not provide sequencing direction, any one of the diagnoses may be sequenced first." "When the physician has documented what appears to be a current diagnosis in the body of the record, but has not included the diagnosis in the final diagnostic statement, the physician should be asked whether the diagnosis should be added." (Source Coding Clinic 2 QTR90. p3-4) TIFFANI
== END 2020-12-16 16:45 | disposition home or self-care (01) | DRG 552 ==
LOC: 3N 20:21 → ED 20:21 → 3N 12-13 01:32 → SUATTDRO 12-14 17:25

== ENCOUNTER 2021-01-06 13:30 | Observation (INO) ==
[2021-01-06] MEDS ORDERED: HYDROmorphone INJ 1 MG/ML SYRINGE IV STA ×2 (14:17→15:18)
[2021-01-06] MEDS ORDERED: ONDANSETRON INJ 2 MG/ML 2 ML VIAL IV STA (14:17)
[2021-01-06] MEDS ORDERED: KETOROLAC TROMETHAMINE 15 MG/ML VIAL IV STA (14:17)
[2021-01-06] MEDS ORDERED: SODIUM CHLORIDE 0.9% 1000ML 1,000 ML IV SCH (14:18)
--- NOTE | 2021-01-06 14:25 | Emergency Department Note ---
History of Present Illness General Chief complaint: Back Injury/Pain Stated complaint: SEVERE BACK PAIN/NAUSEA/VOMITING Time Seen by Provider: 01/06/21 13:51 History of Present Illness Maximum Pain Intensity: 9 Patient is a 50-year-old female with past medical history significant for ham boner ted low back pain, dependent on opioids, hypothyroidism, fibromyalgia, migraine disorder, anxiety, depression, IBS, among other chronic medical problems who presents the emergency department for evaluation of uncontrolled back pain. Patient has chronic low back pain, has been seen at a tertiary care center and told that she is not a surgical candidate. She has been under the care of Dr. Barr and received epidural steroid injections in the past. Patient had a mechanical fall in November of this year, and has been suffering from increased pain since the fall. She was admitted at this facility from 12/12 through 12/16 for uncontrolled back pain. She was seen by pain management and orthopedic surgery at that time. Her pain gradually improved, and she was managed on her home medications including extended release and immediate release morphine 3 times daily, and Cymbalta, as well as baclofen, until last , 6 days ago when the pain began to increase. Was not controlled by her normal medications. She then started vomiting overnight and has not been able to take any of her regular medications. She states that she was referred to the emergency department by her primary care provider. She currently rates her pain a 9/10. She states it radiates across the entire low back, down the midline of her low back to her tailbone, and across to both sides, right greater than left. It wraps around to the front of her thighs and stops at her knees, then also radiates down the entire posterior right leg into her foot. She is tries taking Zofran but it has not helped. She has had no new injury since her admission 3 weeks ago. Prior imaging since the fall showed no acute fracture. No bowel or bladder incontinence. No saddle anesthesias. She reportedly has seen Dr. Barr since the fall, but is not felt to be candidate for an injection at this time. She was told that her symptoms would just need to improve on their own. Home Medications Medication Instructions Recorded Confirmed Type furosemide 40 mg tablet (Lasix) 40 mg PO QAM PRN 03/17/18 01/06/21 History nitroglycerin 0.4 mg sublingual 0.4 mg SUBLINGUAL DIRECTED PRN 03/17/18 01/06/21 History tablet (Nitrostat) morphine 15 mg tablet,extended 15 mg PO TID 10/06/18 01/06/21 History release levothyroxine 125 mcg tablet 250 mcg PO QAM 12/28/19 01/06/21 History morphine 15 mg immediate release 15 mg PO TID PRN 12/28/19 01/06/21 History tablet aspirin 81 mg tablet,delayed 81 mg PO QAM 09/23/20 01/06/21 History release (Aspirin Low Dose) duloxetine 60 mg capsule,delayed 60 mg PO DAILY 09/24/20 01/06/21 History release metformin 500 mg tablet,extended 500 mg PO DAILY 09/24/20 01/06/21 History release 24 hr duloxetine 30 mg capsule,delayed 30 mg PO DAILY 11/15/20 01/06/21 History release polyethylene glycol 3350 17 17 g PO DAILY PRN 11/15/20 01/06/21 History gram/dose oral powder (Miralax) acetaminophen 500 mg tablet 1,000 mg PO Q6H PRN 11/16/20 01/06/21 History (Tylenol Extra Strength) ibuprofen 200 mg tablet 400 mg PO Q6H PRN 11/16/20 01/06/21 History tizanidine 2 mg tablet 2 mg PO Q6H PRN 11/16/20 01/06/21 History baclofen 10 mg tablet 10 mg PO BID PRN 01/06/21 01/06/21 History celecoxib 200 mg capsule 200 mg PO BID 01/06/21 01/06/21 History Allergies Allergy/AdvReac Type Severity Reaction Status Date / Time gabapentin Allergy Severe anaphylaxis Verified 01/06/21 14:14 tramadol Allergy Severe ANAPHYLAXIS Verified 01/06/21 14:14 chlorpheniramine Allergy Intermediate SHORTNESS Verified 01/06/21 14:14 OF BREATH guaifenesin Allergy Intermediate SHORTNESS Verified 01/06/21 14:14 OF BREATH metoclopramide AdvReac Intermediate anxiety Verified 01/06/21 14:14 Past Med/Surg History Medical History (Updated 01/06/21 @ 22:11 by Ernesto Mayfield) Anxiety Atelectasis Cardiomyopathy 2014 - thought to be stress induced, reported normal dobutamine stress and echo after Chronic back pain Chronic pain syndrome Depression Fibromyalgia H/O traumatic brain injury Hypokalemia Hypothyroidism (Unknown) IBS (irritable bowel syndrome) Migraines Opiate dependence Tobacco abuse Surgical History Bilateral tubal ligation (Unknown) section (Unknown) H/O colonoscopy "2006 path normal" H/O cystoscopy H/O esophagogastroduodenoscopy "2006 path normal" Hx of appendectomy Hx of cholecystectomy Hx of hysterectomy S/P lymph node biopsy "deep cervical inflammatory node 2007" Family History Other Diabetes Hypertension Thyroid disorder Social History Smoking Status: Current every day smoker Tobacco Type: Cigarettes Cigarettes Per Day: 10; Second Hand Exposure: Yes; Hx Alcohol Use: No Hx Substance Use: No Preferred Language: Montenegrin Communication Ability: Effective Visual Impairment: Partially Limited Button Tacker Required: No Beliefs That Will Affect Care: None marital status: Current Living Situation: Spouse and Family Feels Safe at Home: Yes Assistive Devices: Denture - Upper Review of Systems A total of 10 systems reviewed and were otherwise negative Physical Exam Vital Signs Vital Signs - 24 hr 01/06/21 13:33 01/06/21 14:31 Temperature 36.6 C Temperature Source Temporal Artery Scan Pulse Rate 79 Pulse Rate [Right Finger] 67 Pulse Rhythm Regular Pulse Strength Normal Respiratory Rate 16 16 Respiratory Effort / Characteristics Non-Labored Non-Labored Respiratory Depth Normal Normal Respiratory Pattern Regular Blood Pressure 158/99 H Blood Pressure [Right Arm] 150/107 H Blood Pressure Mean 118 Blood Pressure Mean [Right Arm] 121 Blood Pressure Position Sitting Pulse Oximetry 96 98 Oxygen Delivery Method Room Air Room Air Sepsis Recent Fever Within 48 Hours No Sepsis New/Unexplained Change in Mental Status N/A Sepsis Action Taken by Nursing No Action Required PHYSICAL EXAM: Vital Signs: Reviewed Nurse's notes. CONSTITUTIONAL: Patient is an uncomfortable appearing 50-year-old female who is awake and alert and laying on the gurney in moderate distress due to their back pain. There is significant discomfort with position changes. CARDIOVASCULAR: Regular rate and rhythm. Peripheral pulses easily palpable. RESPIRATORY: Breath sounds equal and clear to auscultation. ABDOMEN: Bowel sounds are present. Abdomen is soft, nontender and nondistended. INTEGUMENTARY: No lesions or rash, normal skin turgor. LYMPH: No lymphadenopathy. SPINE: Examination of the patient's back does not demonstrate any ecchymosis, abrasions or outward signs of trauma. No erythema, increased warmth or induration. Patient has midline discomfort to palpation over the low lumbar spine, primarily on the right. There is no pain over the SI joint or the sciatic notch. She has increased pain with range of motion including rotation and flexion. EXTREMITIES: Leg lengths are symmetrical. Negative logroll bilaterally. Normal strength including dorsi-flexion and plantar flexion of the great toes and ankles and flexion and extension of the knees . Negative bilateral straight leg raise testing. Lower extremity DTRs are equal and symmetrical bilaterally. Distal pulses are easily palpable. Sensation light touch is intact over the lower extremities bilaterally. Course Course The patient was seen and assessed as above. Old records were reviewed. This is her fifth emergency department visit since the fall from mid November, she has been admitted 3 times for intractable back pain since then. She states that she feels similar to 3 weeks ago and does not feel that it is likely that we can get her pain under control and go home, as she is "afraid that she will have to come back." IV lock was initiated. Laboratory studies were collected. CBC, BMP and urinalysis were ordered. She was medicated with Zofran 4 mg IV, Dilaudid 1 mg IV and Toradol 15 mg IV. She was hydrated with normal saline solution. Patient cannot tolerate steroids. Laboratory studies noted a minimally elevated white count at 11,300. Electrolytes are without significant abnormality. Renal functions are normal. Urine microscopy notes hematuria and epithelial cells otherwise is clear without signs of infection. Patient was reassessed at 1521. She reported that she was still feeling nauseous and having dry heaves, and that the Dilaudid had no change on her pain. She was given an additional Dilaudid 1 mg IV, and Phenergan 25 mg IV. Patient reassessed at 1614. Her nausea was better with the IV Phenergan. Minimal improvement in her back. Discussed with her at this point I would reach [facility] for further care and management as an inpatient. Patient was reviewed with Lisa Wang PA-C. Administered Medications Discontinued Medications Acetaminophen (Acetaminophen 1000 Mg/100 Ml Iv) 1,000 mg IV NOW ONE Stop: 01/06/21 19:31 Last Admin: 01/06/21 19:41 Dose: 1,000 mg Documented by: [id number] Hydromorphone HCl (Hydromorphone Inj 1 Mg/Ml Syringe) 1 mg IV NOW STA Stop: 01/06/21 14:18 Last Admin: 01/06/21 14:37 Dose: 1 mg Documented by: [id number] Hydromorphone HCl (Hydromorphone Inj 1 Mg/Ml Syringe) 1 mg IV NOW STA Stop: 01/06/21 15:19 Last Admin: 01/06/21 15:33 Dose: 1 mg Documented by: [id number] Sodium Chloride (Nss 1000ml) 1,000 mls @ 999 mls/hr IV .Q1H1M ANDREW Stop: 01/06/21 15:18 Last Infusion: 01/06/21 15:51 Dose: 0 mls/hr Documented by: [id number] Admin: 01/06/21 14:34 Dose: 999 mls/hr Documented by: [id number] Promethazine HCl (Phenergan) 25 mg in 51 mls @ 204 mls/hr IV NOW STA Stop: 01/06/21 15:33 Last Infusion: 01/06/21 15:50 Dose: 0 mls/hr Documented by: [id number] Admin: 01/06/21 15:33 Dose: 204 mls/hr Documented by: [id number] Ketorolac Tromethamine (Ketorolac Tromethamine 15 Mg/Ml Vial) 15 mg IV NOW STA Stop: 01/06/21 14:18 Last Admin: 01/06/21 14:35 Dose: 15 mg Documented by: [id number] Ondansetron HCl (Ondansetron Inj 2 Mg/Ml 2 Ml Vial) 4 mg IV NOW STA Stop: 01/06/21 14:18 Last Admin: 01/06/21 14:34 Dose: 4 mg Documented by: [id number] Medical Decision Making Differential Diagnosis Patient's presentation appears consistent with an exacerbation of her chronic low back pain. She does not have any worrisome physical exam findings to indicate acute cord compression or cauda equina syndrome. Previous imaging has not documented fracture. I do not suspect epidural abscess or hematoma. Medical Records Attestation: I reviewed the patient's medical records. Home Medications Current Medication List: was personally reviewed by [id number] Laboratory Data Attestation: I reviewed the patient's lab results. Result diagrams: 01/06/21 14:33 01/06/21 15:34 Lab Results 01/06/21 01/06/21 01/06/21 Range/Units 14:33 14:33 14:40 WBC 11.39 H (4.8-10.8) K/uL RBC 5.40 (4.2-5.4) M/uL Hgb 16.4 H (12.0-16.0) g/dL Hct 49.4 H (37-47) % MCV 91.5 (80-100) fL MCH 30.4 (25-34) pg MCHC 33.2 (32-36) g/dL RDW Std Deviation 48.8 H (36.4-46.3) fL RDW Coeff of Roro 14.5 (11.5-14.5) % Plt Count 294 (130-400) K/uL MPV 10.9 H (7.4-10.4) fL Sodium 136 (136-145) mmol/L Potassium (3.5-5.1) mmol/L Chloride 107 (98-107) mmol/L Carbon Dioxide 28 (21-32) mmol/L Anion Gap 1.0 L (3-11) BUN 11 (7-18) mg/dl Creatinine 0.92 (0.6-1.2) mg/dl Est Cr Clr Drug Dosing 102.8 ml/min Est GFR ( Amer) 84.7 ml/min Est GFR (Non-Af Amer) 73.1 ml/min BUN/Creatinine Ratio 12.0 (10-20) Glucose 95 (70-99) mg/dl Calcium 10.0 (8.5-10.1) mg/dl Urine Color Yellow Urine Appearance Clear (Clear) Urine pH 7.0 (4.5-7.5) Ur Specific Nell[place] 1.015 (1.000-1.030) Urine Protein Negative (Negative) Urine Glucose (UA) Negative (Negative) Urine Ketones Negative (Negative) Urine Blood 1+ H (Negative) Urine Nitrite Negative (Negative) Urine Bilirubin Negative (Negative) Urine Urobilinogen Negative (Negative) Ur Leukocyte Esterase Negative (Negative) Urine WBC (Auto) 1-5 (0-5) /hpf Urine RBC (Auto) 10-30 H (0-4) /hpf U Hyaline Cast (Auto) 1-5 (0-5) /lpf U Epithel Cells (Auto) >30 H (0-5) /lpf Urine Bacteria (Auto) Negative (Negative) 01/06/21 Range/Units 15:34 WBC (4.8-10.8) K/uL RBC (4.2-5.4) M/uL Hgb (12.0-16.0) g/dL Hct (37-47) % MCV (80-100) fL MCH (25-34) pg MCHC (32-36) g/dL RDW Std Deviation (36.4-46.3) fL RDW Coeff of Roro (11.5-14.5) % Plt Count (130-400) K/uL MPV (7.4-10.4) fL Sodium (136-145) mmol/L Potassium 4.0 (3.5-5.1) mmol/L Chloride (98-107) mmol/L Carbon Dioxide (21-32) mmol/L Anion Gap (3-11) BUN (7-18) mg/dl Creatinine (0.6-1.2) mg/dl Est Cr Clr Drug Dosing ml/min Est GFR ( Amer) ml/min Est GFR (Non-Af Amer) ml/min BUN/Creatinine Ratio (10-20) Glucose (70-99) mg/dl Calcium (8.5-10.1) mg/dl Urine Color Urine Appearance (Clear) Urine pH (4.5-7.5) Ur Specific Nellis (1.000-1.030) Urine Protein (Negative) Urine Glucose (UA) (Negative) Urine Ketones (Negative) Urine Blood (Negative) Urine Nitrite (Negative) Urine Bilirubin (Negative) Urine Urobilinogen (Negative) Ur Leukocyte Esterase (Negative) Urine WBC (Auto) (0-5) /hpf Urine RBC (Auto) (0-4) /hpf U Hyaline Cast (Auto) (0-5) /lpf U Epithel Cells (Auto) (0-5) /lpf Urine Bacteria (Auto) (Negative) Prescription Drug Monitoring [place] Drug [place] reviewed and findings noted below Prescription Drug Findings: Monthly morphine prescriptions from her primary care provider. MDM Narrative See ED course Impression & Plan Acute exacerbation of chronic low back pain Discharge Plan Visit Data Chief Complaint: Back Injury/Pain Stated Complaint: SEVERE BACK PAIN/NAUSEA/VOMITING ED Provider: Juan Lord ED Midlevel Provider: Ernesto Mayfield Discharge Problem: Acute exacerbation of chronic low back pain Patient Disposition: Admitted As Inpatient Discharge Instructions Interventions: ED Discharge Assessment Last Done: 01/06/21 21:28
[2021-01-06 14:55] LABS: Hematocrit (blood only) 49.4 % (37-47); Hemoglobin 16.4 g/dL (12.0-16.0); Mean Corpuscular Hemoglobin 30.4 pg (25-34); Mean Corpuscular Hgb Conc 33.2 g/dL (32-36); Mean Corpuscular Volume 91.5 fL (80-100); Mean Platelet Volume 10.9 fL (7.4-10.4); Platelet Count 294 K/uL (130-400); RDW Coefficient of Variation 14.5 % (11.5-14.5); RDW Standard Deviation 48.8 fL (36.4-46.3); White Blood Count 11.39 K/uL (4.8-10.8)
[2021-01-06 14:58] LABS: Appearance Urine Clear (Clear); Bacteria Urine Automated Negative (Negative); Bilirubin Urine Negative (Negative); Blood Urine 1+ (Negative); Color Urine Yellow; Epithelial Cell Urine Auto >30 /lpf (0-5); Glucose Urine UA Negative (Negative); Ketones Urine Negative (Negative); Leukocyte Esterase Urine Negative (Negative); Nitrite Urine Negative (Negative); Protein Urine Negative (Negative); Specific Gravity Urine 1.015 (1.000-1.030); Urobilinogen Urine Negative (Negative)
[2021-01-06] MEDS ORDERED: PROMETHAZINE 25 MG/51 ML BAG IV STA (15:19)
[2021-01-06 15:25] LABS: Creatinine Clr Calc Pharmacy 102.8 ml/min; Est GFR (African American) 84.7 ml/min; Est GFR (Non-African American) 73.1 ml/min
--- NOTE | 2021-01-06 16:44 | History & Physical Report ---
Date of Service January 06, 2021 Assessment & Plan (1) Intractable back pain: Plan: - Admit to med surg for obs - Pain control with morphine ER 15 mg TID and IR TID prn , Cymbalta 60 mg daily, baclofen 10 mg BID prn, zanaflex 2 mg daily, and will add IV dilaudid for br eakthrough pain- given Dilaudid 2 mg IV in the ER, Toradol 15 mg x 1, zofran and reglan. -Consult pain management- Dr Barr follows her for back pain as an outpatient, last spinal injection was Jun 2020 prior to this injury sustained in November 2020. -Consider consult ortho spine however has previously been deemed she is a nonsurgical candidate. -Consult PT/OT -WBC 11.39, previously elevated at this point during her last flare on 12/13/20, otherwise afebrile, BP slightly elevated at 150/107 - Avoid steroids - No repeat imaging was done in the ER- no recent injury, no falls, no trauma per patient. (2) Hypothyroidism: Plan: -Continue levothyroxine 250 mcg qam (3) Fibromyalgia: Plan: - hx of such (4) Opiate dependence: Plan: - As above, PDMP reviewed. (5) Anxiety: Plan: - Continue cymbalta (6) Depression: Plan: - Continue cymbalta - Would benefit from therapy and/or counselor as an outpatient - Diet and exercise - Stop smoking, cessation provided at bedside as well as order nicotine patch. (7) Prediabetes: Plan: -Last A1c is 5.9 on 12/13/2020, holding metformin - ISS with accuchecks achs DVT ppx: - teds, scds CODE: Full code Dispo: From home, likely to remain in the hospital x 1 day History of Present Illness Primary Care Provider: Dajuan Bell DO This is a 50 yo F with PMHx of hypothyroidism, prediabetes, irritable bowel syndrome, fibromyalgia, migraine, chronic pain syndrome, opiate dependence, tobacco abuse, generalized anxiety disorder, and depression. The patient was initially in the hospital around 11/17/2020, because she fell in porch in sister's place. She had multiple studies including thoracic, cervical and lumbar spine MRI and also thoracic spine and lumbar spine, head CT and chest CT and cervical CT and abdominal CT at that time and she was sent home, but on 11/17/2020 she was admitted with severe back pain and ambulatory dysfunction and she was discharged and followed up with Neurosurgery in [place] and no surgery was planned and at that time the numbness in the lower extremity was improving. She was supposed to follow pain management, Dr. Barr on phone and said no steroid shot was warranted at that time. On 11/18/2020, admitted again with same problem and she was found to have acute hypercalcemia, thought to be from hyperparathyroidism. Orthopedics evaluated her and and they also recommended nonoperative management, and was sent home. Pt was readmitted on -12/16 for same problem again, was seen by pain management team, who placed her on a medrol dose pack, baclofen, and Keppra. No interventional pain management plans were warranted. Ortho spine surgery deemed that she was not a surgical candidate and would benefit from PT/OT. She reports being evaluated as an inpatient and passing eval and did not meet for PT/OT as an outpatient. She reports doing her own PT at home on a daily basis. Pt represents today with intractable back pain. She reports it is all in her lower back and moves down the front anterior portion of her thighs. There is also pain that and numbness that radiates down from her right hip into the right ankle reports sitting on a hard bench pain worse in her lower back. She has been walking with use of a walker for a few days, but reports this is getting more difficult. She states that she is not able to take steroids due to hx of it causing psychosis. She has been using morphine ER and morphine IR as directed, last taken yesterday, as well as baclofen and Zanaflex. She reports that the latter 2 are less effective at treating her pain. She also uses both Celebrex and ibuprofen daily. Denies any GI complaints, no blood in stool, hematochezia, etc. She follows with Dr. Barr as an outpatient for the past 2 years for history of a disc slip, and had her last spinal injection in June 2020, he has not wanted to do any further injections until this problem is further improved. She admits to smoking 1 pack/day and requests nicotine patch. Denies any alcohol use. Her is present at bedside and supports the history. Allergies Allergy/AdvReac Type Severity Reaction Status Date / Time gabapentin Allergy Severe anaphylaxis Verified 01/06/21 14:14 tramadol Allergy Severe ANAPHYLAXIS Verified 01/06/21 14:14 chlorpheniramine Allergy Intermediate SHORTNESS Verified 01/06/21 14:14 OF BREATH guaifenesin Allergy Intermediate SHORTNESS Verified 01/06/21 14:14 OF BREATH metoclopramide AdvReac Intermediate anxiety Verified 01/06/21 14:14 Home Medications Medication Instructions Recorded Confirmed Type furosemide 40 mg tablet (Lasix) 40 mg PO QAM PRN 03/17/18 01/06/21 History nitroglycerin 0.4 mg sublingual 0.4 mg SUBLINGUAL DIRECTED PRN 03/17/18 01/06/21 History tablet (Nitrostat) morphine 15 mg tablet,extended 15 mg PO TID 10/06/18 01/06/21 History release levothyroxine 125 mcg tablet 250 mcg PO QAM 12/28/19 01/06/21 History morphine 15 mg immediate release 15 mg PO TID PRN 12/28/19 01/06/21 History tablet aspirin 81 mg tablet,delayed 81 mg PO QAM 09/23/20 01/06/21 History release (Aspirin Low Dose) duloxetine 60 mg capsule,delayed 60 mg PO DAILY 09/24/20 01/06/21 History release metformin 500 mg tablet,extended 500 mg PO DAILY 09/24/20 01/06/21 History release 24 hr duloxetine 30 mg capsule,delayed 30 mg PO DAILY 11/15/20 01/06/21 History release polyethylene glycol 3350 17 17 g PO DAILY PRN 11/15/20 01/06/21 History gram/dose oral powder (Miralax) acetaminophen 500 mg tablet 1,000 mg PO Q6H PRN 11/16/20 01/06/21 History (Tylenol Extra Strength) ibuprofen 200 mg tablet 400 mg PO Q6H PRN 11/16/20 01/06/21 History tizanidine 2 mg tablet 2 mg PO Q6H PRN 11/16/20 01/06/21 History baclofen 10 mg tablet 10 mg PO BID PRN 01/06/21 01/06/21 History celecoxib 200 mg capsule 200 mg PO BID 01/06/21 01/06/21 History Past Med/Surg History Medical History (Updated 01/06/21 @ 16:39 by Jing Wang PA-C) Anxiety Atelectasis Cardiomyopathy 2015 - thought to be stress induced, reported normal dobutamine stress and echo after Chronic back pain Chronic pain syndrome Depression Fibromyalgia H/O traumatic brain injury Hypokalemia Hypothyroidism (Unknown) IBS (irritable bowel syndrome) Migraines Opiate dependence Tobacco abuse Surgical History Bilateral tubal ligation (Unknown) section (Unknown) H/O colonoscopy "2006 path normal" H/O cystoscopy H/O esophagogastroduodenoscopy "2006 path normal" Hx of appendectomy Hx of cholecystectomy Hx of hysterectomy S/P lymph node biopsy "deep cervical inflammatory node 2007" Family History Other Diabetes Hypertension Thyroid disorder Social History Smoking Status: Current every day smoker Tobacco Type: Cigarettes Cigarettes Per Day: 10; Second Hand Exposure: Yes; Hx Alcohol Use: No Hx Substance Use: No Preferred Language: Azeri Communication Ability: Effective Visual Impairment: Partially Limited Inter Com Installer Required: No Beliefs That Will Affect Care: None marital status: Current Living Situation: Spouse and Family Feels Safe at Home: Yes Assistive Devices: Denture - Upper Review of Systems Review of Systems: Constitutional: No fever, sweats or chills Eyes: No diplopia, no worsening or blurred vision ENT: normal hearing, no trouble swallowing Respiratory: No cough, sputum, dyspnea at rest or on exertion Cardiovascular: No chest pain, tightness or palpitations Abdomen: No pain, +nausea, +vomiting, no diarrhea or constipation Musculoskeletal: No joint pain, calf pain, swelling Neurologic: No weakness, + numbness/tingling, + back pain as per HPI, no balance problems Psychiatric: +anxiety, depression, + fibromyalgia Skin: No rash or itch Physical Exam Physical Exam: General: awake, alert, no apparent distress, appears fatigued and in pain obese with BMI 37.1 Head: Normocephalic, atraumatic ENT: PERRL, EOMI, no pharyngeal exudate, mucous membranes moist Chest: Clear to auscultation, on room air, no adventitious breath sounds Cardiac: Regular rate and rhythm, no murmur, no JVD, normal peripheral pulses, good capillary refill Abdominal: NABS x 4 quadrants, soft, nondistended, nontender to palpation, no rebound or guarding Extremities: Normal inspection, no peripheral edema or erythema, calfs nontender to palpation Back: no point tenderness down spine, able to perform straight leg raise 2 to 3 inches off the bed Psych: Depressed mood and flat affect Neuro: AAO x 3, strength intact bilaterally and rated 5/5, no motor deficits, speech is clear, no peripheral sensory deficits Results & Data Results & Data ([facility]) Vital Signs (Past 12 Hours) Vital Signs Temp Pulse Pulse Resp BP BP Pulse Ox 01/06/21 14:31 67 16 150/107 H 98 01/06/21 13:33 36.6 C 79 16 158/99 H 96 Code Status & VTE Plan Code Status Full code-discussed with the patient and her at bedside (1) Opiate dependence Substance use status: with unspecified opioid-induced disorder Qualified Code(s): F11.29 - Opioid dependence with unspecified opioid-induced disorder (2) Hypothyroidism Hypothyroidism type: unspecified Qualified Code(s): E03.9 - Hypothyroidism, unspecified
[2021-01-06] MEDS ORDERED: ACETAMINOPHEN 1000 MG/100 ML IV IV SCH (17:45)
[2021-01-06] MEDS ORDERED: ACETAMINOPHEN 1000 MG/100 ML IV IV ONE (19:30)
[2021-01-06] MEDS ORDERED: GLUCOSE 10 TABS/TUBE PO PRN (21:49)
[2021-01-06] MEDS ORDERED: KETOROLAC TROMETHAMINE 15 MG/ML VIAL IV PRN (21:49)
[2021-01-06] MEDS ORDERED: GLUCOSE 40% GEL 15 GM TUBE PO PRN (21:49)
[2021-01-06] MEDS ORDERED: GLUCAGON FOR INJ 1 MG VIAL SQ PRN (21:49)
[2021-01-06] MEDS ORDERED: HYDROmorphone INJ 0.5 MG/0.5 ML SYR IV PRN (21:49)
[2021-01-06] MEDS ORDERED: tiZANidine HCL 4 MG TABLET PO PRN (21:49)
[2021-01-06] MEDS ORDERED: DEXTROSE 50% 50 ML SYRINGE IV PRN (21:49)
[2021-01-06] MEDS ORDERED: NITROGLYCERIN SL 0.4 MG/TAB TAB SL PRN (21:49)
[2021-01-06] MEDS ORDERED: POLYETHYLENE (MIRALAX) 17 GM PACK PO PRN (21:49)
[2021-01-06] MEDS ORDERED: BACLOFEN 10 MG TAB PO PRN (21:49)
[2021-01-06] MEDS ORDERED: CARBOHYDRATES FOR HYPOGLYCEMIA PO PRN (21:49)
[2021-01-06] MEDS ORDERED: PROMETHAZINE HCL 12.5 MG in SODIUM CHLORIDE 0.9% 50 ML IV PRN (21:49)
[2021-01-06] MEDS: INSULIN ASPART 100 UNITS/ML 3 ML PEN SC SCH (22:35)
[2021-01-06] MEDS: LIDOCAINE 5% 1 PATCH TD SCH (22:47)
[2021-01-06] MEDS: MoRPHine SULFATE CR 15 MG TABCR PO SCH (22:48)
[2021-01-06] MEDS: NICOTINE 21 MG/24 HR TDSY TD SCH (22:48)
[2021-01-06] MEDS: traZODone HCL 50 MG TAB PO PRN (23:24)
[2021-01-07] MEDS: MoRPHine SULFATE IR 15 MG TAB (IMMEDIATE RELEASE) PO PRN ×3 (02:10→19:47)
[2021-01-07] MEDS: LEVOTHYROXINE SODIUM 125 MCG TABLET PO SCH (05:54)
[2021-01-07] MEDS: ACETAMINOPHEN 500 MG TAB PO SCH ×3 (05:54→19:47)
[2021-01-07 07:03] LABS: Hematocrit (blood only) 44.8 % (37-47); Hemoglobin 14.6 g/dL (12.0-16.0); Mean Corpuscular Hgb Conc 32.6 g/dL (32-36); Mean Platelet Volume 10.4 fL (7.4-10.4); Platelet Count 234 K/uL (130-400); RDW Coefficient of Variation 14.5 % (11.5-14.5); RDW Standard Deviation 49.2 fL (36.4-46.3); Red Blood Count 4.87 M/uL (4.2-5.4); White Blood Count 9.57 K/uL (4.8-10.8)
[2021-01-07 07:27] LABS: Estimated Average Glucose 117 mg/dl; Hemoglobin A1C 5.7 % (4.5-5.6)
[2021-01-07 07:38] LABS: BUN Creatinine Ratio 14.3 (10-20); Calcium 9.1 mg/dl (8.5-10.1); Creatinine Clr Calc Pharmacy 124.3 ml/min; Est GFR (African American) 106.8 ml/min; Est GFR (Non-African American) 92.1 ml/min; Potassium 3.9 mmol/L (3.5-5.1)
[2021-01-07 07:41] LABS: Albumin Globulin Ratio 0.9 (0.9-2); Bilirubin,Total 0.5 mg/dl (0.2-1); Globulin 3.4 gm/dl (2.5-4.0); Total Protein 6.4 gm/dl (6.4-8.2)
--- NOTE | 2021-01-07 08:05 | Hospitalist Progress Note ---
Date of Service January 06, 2021 Assessment & Plan Admission and Anticipated Discharge Date Admission Date: January 06, 2021 Subjective date of service Jan 06 2021. Celestino presents with recurring back pain. Multiple admissions for same problem. Says when sitting on chair she gets numbness in legs otherwise no weakness. No incontience of bowel or bladder movements. Ambulating ok sometimes needfs cane. No chest pain or sob. No cough. No fevers. Exam: Ge Not in distresss Cvs s1 and s2 heard regular no murmurs Rs cta b/l no wheezing or crackles Abd soft bowel sounds present non tender ROLLER CHECKER non focal Ext no edema' Musculoskeletal b/l SLR test positive a/p severe back pain recurrent admssions pain control ortho and pain management consult pt/ot Rest as per Jing Wang PA-C Results & Data Results & Data ([facility]) Vital Signs (Past 12 Hours) Vital Signs Temp Pulse Pulse Resp BP BP Pulse Ox 01/06/21 23:40 36.8 C 68 20 141/87 H 93 01/06/21 21:35 36.6 C 57 L 20 150/92 H 96 01/06/21 21:06 61 18 148/86 H 96
--- NOTE | 2021-01-07 08:13 | Orthopedic Consultation ---
Date of Consultation January 07, 2021 Assessment & Plan (1) Back pain: At this time she seems to have exacerbation of underlying pre-existing back pain. Do not appreciate the need for any further imaging. She does have evidence of modest disc protrusion at L4-L5 for an MRI in November. However there is no evidence of gross radiculopathy or clinical presentation of change. Recommend a course of physical therapy and return home. History of Present Illness Reason for Consultation: Back pain Attending Physician: Eric Ponce MD History of Present Illness This is a 50-year-old female that presents to the emergency room with worsening axial back pain. She denies any precipitating trauma fall or event. She notes some right lateral thigh discomfort. She states that prolonged sitting on a hard bench in the kitchen table creates numbness in the bilateral legs. She denies any leg radiculopathy or bowel bladder changes. Allergies Allergy/AdvReac Type Severity Reaction Status Date / Time gabapentin Allergy Severe anaphylaxis Verified 01/06/21 14:14 tramadol Allergy Severe ANAPHYLAXIS Verified 01/06/21 14:14 chlorpheniramine Allergy Intermediate SHORTNESS Verified 01/06/21 14:14 OF BREATH guaifenesin Allergy Intermediate SHORTNESS Verified 01/06/21 14:14 OF BREATH metoclopramide AdvReac Intermediate anxiety Verified 01/06/21 14:14 Home Medications Medication Instructions Recorded Confirmed Type furosemide 40 mg tablet (Lasix) 40 mg PO QAM PRN 03/17/18 01/06/21 History nitroglycerin 0.4 mg sublingual 0.4 mg SUBLINGUAL DIRECTED PRN 03/17/18 01/06/21 History tablet (Nitrostat) morphine 15 mg tablet,extended 15 mg PO TID 10/06/18 01/06/21 History release levothyroxine 125 mcg tablet 250 mcg PO QAM 12/28/19 01/06/21 History morphine 15 mg immediate release 15 mg PO TID PRN 12/28/19 01/06/21 History tablet aspirin 81 mg tablet,delayed 81 mg PO QAM 09/23/20 01/06/21 History release (Aspirin Low Dose) duloxetine 60 mg capsule,delayed 60 mg PO DAILY 09/24/20 01/06/21 History release metformin 500 mg tablet,extended 500 mg PO DAILY 09/24/20 01/06/21 History release 24 hr duloxetine 30 mg capsule,delayed 30 mg PO DAILY 11/15/20 01/06/21 History release polyethylene glycol 3350 17 17 g PO DAILY PRN 11/15/20 01/06/21 History gram/dose oral powder (Miralax) acetaminophen 500 mg tablet 1,000 mg PO Q6H PRN 11/16/20 01/06/21 History (Tylenol Extra Strength) ibuprofen 200 mg tablet 400 mg PO Q6H PRN 11/16/20 01/06/21 History tizanidine 2 mg tablet 2 mg PO Q6H PRN 11/16/20 01/06/21 History baclofen 10 mg tablet 10 mg PO BID PRN 01/06/21 01/06/21 History celecoxib 200 mg capsule 200 mg PO BID 01/06/21 01/06/21 History Patient History Medical History (Updated 01/06/21 @ 22:11 by Ernesto Mayfield) Anxiety Atelectasis Cardiomyopathy 2014 - thought to be stress induced, reported normal dobutamine stress and echo after Chronic back pain Chronic pain syndrome Depression Fibromyalgia H/O traumatic brain injury Hypokalemia Hypothyroidism (Unknown) IBS (irritable bowel syndrome) Migraines Opiate dependence Tobacco abuse Surgical History Bilateral tubal ligation (Unknown) section (Unknown) H/O colonoscopy "2006 path normal" H/O cystoscopy H/O esophagogastroduodenoscopy "2006 path normal" Hx of appendectomy Hx of cholecystectomy Hx of hysterectomy S/P lymph node biopsy "deep cervical inflammatory node 2007" Family History Other Diabetes Hypertension Thyroid disorder Social History Smoking Status: Current every day smoker Tobacco Type: Cigarettes Cigarettes Per Day: 10; Second Hand Exposure: Yes; Do You Dip or Chew Tobacco: No; Hx Alcohol Use: No Hx Substance Use: No Preferred Language: Sudanese Communication Ability: Effective Visual Impairment: Partially Limited 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 She does have some tenderness to palpation at the mid lumbar spine. No SI joint discomfort. Subtrochanteric IT band discomfort bilaterally. Excellent strength testing otherwise. Results & Data ([facility]) Vital Signs (Past 12 Hours) Vital Signs Temp Pulse Pulse Resp BP BP Pulse Ox 01/06/21 23:40 36.8 C 68 20 141/87 H 93 01/06/21 21:35 36.6 C 57 L 20 150/92 H 96 01/06/21 21:06 61 18 148/86 H 96 (1) Back pain Back pain laterality: midline Back pain location: low back pain Chronicity: acute Sciatica presence: without sciatica Qualified Code(s): M54.5 - Low back pain
[2021-01-07] MEDS: NICOTINE 21 MG/24 HR TDSY TD SCH (08:19)
[2021-01-07] MEDS: DULoxetine HCL 30 MG CAP PO SCH (08:20)
[2021-01-07] MEDS: DULoxetine HCL 60 MG CAP PO SCH (08:20)
[2021-01-07] MEDS: ASPIRIN 81 MG ECTAB PO SCH (08:20)
[2021-01-07] MEDS: FAMOTIDINE 20 MG in SYRINGE 3 ML IV SCH (08:21)
[2021-01-07] MEDS: MoRPHine SULFATE CR 15 MG TABCR PO SCH ×3 (08:24→19:47)
[2021-01-07] MEDS: INSULIN ASPART 100 UNITS/ML 3 ML PEN SC SCH ×2 (08:34→12:33)
[2021-01-07] MEDS ORDERED: FAMOTIDINE 20MG/5ML IV PUSH IV SCH (09:00)
--- NOTE | 2021-01-07 09:03 | Pain Management Consultation ---
Date of Consultation January 07, 2021 Assessment & Plan (1) Acute exacerbation of chronic low back pain: (2) Chronic pain disorder: (3) Bulging lumbar disc: (4) Chronic prescription opiate use: (5) Intractable nausea and vomiting: (6) Fibromyalgia: (7) Opiate dependence: Substance use status: with unspecified opioid-induced disorder Qualified Code(s): F11.29 - Opioid dependence with unspecified opioid-induced disorder (8) Tobacco abuse: (9) Chronic pain syndrome: (10) Migraines: (11) Anxiety: (12) Depression: As the patient's nausea and vomiting is under control I recommend that she return back to her chronic opioid schedule of MsContin 15mg TID, MS IR 15mg BID, Cymbalta 90 mg daily, and Tizanidine 2 mg x 6hrs PRN. I would not recommend any changes. No interventional procedures to offer the patient at this time. I would recommend physical therapy. Thank you for the consultation. Will sign off on the patient. History of Present Illness Reason for Consultation: Low back pain Attending Physician: Eric Ponce MD History of Present Illness This is a 50-year-old female that returns for a third admission regarding low back pain after falling off of her sister's porch in mid November 2020 states that t he pain is 50% low back and 50% radicular along the anterior thighs. She is chronically on MS Contin 15 mg 3 times daily and MSIR 15 mg twice daily for pain relief. She does also have take Cymbalta 90 mg daily and tizanidine 2 mg every 6 hours if needed. Patient states that that her pain has been fairly well controlled since her last admission but yesterday she was nauseated and unable to take her oral medications as her pain did increase. Since admission and IV Zofran she is able to take her medications and states that her pain is back to baseline. Pain is ranging from 8-9/10. She does follow with Dr. Barr and did receive an epidural steroid injection June 2020 and at this time is not a candidate for a repeat injection. She is not a surgical candidate. Patient states that she is unable to take oral steroids due to delirium. There is no bowel/bladder incontinence, saddle anesthesia, foot drop, or leg weakness. Case discussed with Dr. Lindsey Martinez Pain Assessment Full Body Front + Back: 1. 2. 3. Allergies Allergy/AdvReac Type Severity Reaction Status Date / Time gabapentin Allergy Severe anaphylaxis Verified 01/06/21 14:14 tramadol Allergy Severe ANAPHYLAXIS Verified 01/06/21 14:14 chlorpheniramine Allergy Intermediate SHORTNESS Verified 01/06/21 14:14 OF BREATH guaifenesin Allergy Intermediate SHORTNESS Verified 01/06/21 14:14 OF BREATH metoclopramide AdvReac Intermediate anxiety Verified 01/06/21 14:14 Home Medications Medication Instructions Recorded Confirmed Type furosemide 40 mg tablet (Lasix) 40 mg PO QAM PRN 03/17/18 01/06/21 History nitroglycerin 0.4 mg sublingual 0.4 mg SUBLINGUAL DIRECTED PRN 03/17/18 01/06/21 History tablet (Nitrostat) morphine 15 mg tablet,extended 15 mg PO TID 10/06/18 01/06/21 History release levothyroxine 125 mcg tablet 250 mcg PO QAM 12/28/19 01/06/21 History morphine 15 mg immediate release 15 mg PO TID PRN 12/28/19 01/06/21 History tablet aspirin 81 mg tablet,delayed 81 mg PO QAM 09/23/20 01/06/21 History release (Aspirin Low Dose) duloxetine 60 mg capsule,delayed 60 mg PO DAILY 09/24/20 01/06/21 History release metformin 500 mg tablet,extended 500 mg PO DAILY 09/24/20 01/06/21 History release 24 hr duloxetine 30 mg capsule,delayed 30 mg PO DAILY 11/15/20 01/06/21 History release polyethylene glycol 3350 17 17 g PO DAILY PRN 11/15/20 01/06/21 History gram/dose oral powder (Miralax) acetaminophen 500 mg tablet 1,000 mg PO Q6H PRN 11/16/20 01/06/21 History (Tylenol Extra Strength) ibuprofen 200 mg tablet 400 mg PO Q6H PRN 11/16/20 01/06/21 History tizanidine 2 mg tablet 2 mg PO Q6H PRN 11/16/20 01/06/21 History baclofen 10 mg tablet 10 mg PO BID PRN 01/06/21 01/06/21 History celecoxib 200 mg capsule 200 mg PO BID 08/04/21 08/04/21 History Patient History Medical History Anxiety Atelectasis Cardiomyopathy 2015 - thought to be stress induced, reported normal dobutamine stress and echo after Chronic back pain Chronic pain syndrome Depression Fibromyalgia H/O traumatic brain injury Hypokalemia Hypothyroidism (Unknown) IBS (irritable bowel syndrome) Migraines Opiate dependence Tobacco abuse Surgical History Bilateral tubal ligation (Unknown) section (Unknown) H/O colonoscopy "2006 path normal" H/O cystoscopy H/O esophagogastroduodenoscopy "2006 path normal" Hx of appendectomy Hx of cholecystectomy Hx of hysterectomy S/P lymph node biopsy "deep cervical inflammatory node 2007" Family History Other Diabetes Hypertension Thyroid disorder Social History Smoking Status: Current every day smoker Tobacco Type: Cigarettes Cigarettes Per Day: 10; Second Hand Exposure: Yes; Do You Dip or Chew Tobacco: No; Hx Alcohol Use: No Hx Substance Use: No Preferred Language: Hong Konger Communication Ability: Effective Visual Impairment: Partially Limited Torch Straightener Required: No Beliefs That Will Affect Care: None marital status: Current Living Situation: Spouse and Family Other Information That Helps Us Care for You: No Feels Safe at Home: Yes Safety Concerns: Feels Safe At This Time Assistive Devices: Denture - Upper Physical Exam Physical Exam: GENERAL: This is a 50 year old female. Does not appear in acute distress. Able to move around bed slowly. HEAD/FACE: Normocephalic and atraumatic. EYES: No drainage or conjunctival injection. ENT: Nose without bleeding or discharge. Oral mucosa moist. NECK: Full ROM without apparent pain. No swelling or masses noted. RESPIRATORY: Patient with unlabored breathing. No signs of respiratory distress. CHEST/AXILLA: Chest movement symmetrical. No deformities noted. ABDOMEN/GI: No distension BACK: There is mild diffuse lumbar tenderness. No SI joint tenderness. No focal muscle spasm or trigger point noted. SKIN: [place], warm and dry. No rash noted. MS/EXTREMITY: No swelling, no deformities. Moving extremities appropriately. NEURO: Alert and appears oriented. Speech is fluent. Cranial Nerves are grossly intact. PSYCH: Alert, pleasant, affect is calm Results ([facility]) Diagnostic Review MRI Findings: CERVICAL SPINE MRI HISTORY: Fall. couldn't move legs. now resolved TECHNIQUE: Multiplanar multisequence MRI of the cervical spine was performed without the use of contrast. COMPARISON STUDY: Cervical spine CT 11/15/2020. FINDINGS: No fracture or subluxation. The visualized posterior fossa is unremarkable. Disc spaces are preserved. Prevertebral soft tissues and the C1-C2 interval are intact. The cervical spine is normal and course, caliber, and signal intensity. C2-C3: Mild right-sided neural foraminal narrowing due to the uncovertebral hypertrophy. No significant central canal narrowing. C3-C4: No significant central canal narrowing. Mild bilateral neural foraminal narrowing due to the uncovertebral hypertrophy. C4-C5: Mild bilateral neural foraminal narrowing due to the uncovertebral hypertrophy. No significant central canal narrowing. C5-C6: Small broad-based posterior disc bulge without significant central canal or neural foraminal narrowing. No disc herniations. C6-C7: No significant central canal narrowing. There is mild left-sided neural foraminal narrowing due to the uncovertebral hypertrophy. C7-T1: No significant central canal or neural foraminal narrowing. IMPRESSION: 1. No fracture or subluxation within the cervical spine. 2. Minor degenerative changes as described above. 3. Normal cervical spinal cord. ACT 112: Negative or not required by law. Electronically signed by: Zheng Rivera M.D. 11/16/2020 7:44 AM MRI OF THE THORACIC SPINE WITHOUT CONTRAST CLINICAL HISTORY: Fall. Couldn't move legs. now resolved COMPARISON: MRI of the thoracic spine November 25, 2008. Thoracic spine CT November 15, 2020. TECHNIQUE: Utilizing a 1.5 Yaa magnet and dedicated coil, multiplanar, multiecho imaging of the thoracic spine was performed without IV contrast. FINDINGS: Alignment of the thoracic spine is anatomic. Vertebral body heights are maintained. There is no marrow edema or marrow replacement. Central canal and neural foramen are patent. There is no thoracic spine disc herniation. Thoracic cord signal and caliber are normal. There is no intracanalicular mass or fluid collection. Paravertebral soft tissues are unremarkable. Disc spaces are preserved. IMPRESSION: Unremarkable MRI of the thoracic spine. ACT 112: Negative or not required by law. Electronically signed by: Yonas Carson M.D. 11/16/2020 8:00 AM LUMBAR SPINE MRI HISTORY: Fall. lower back pain TECHNIQUE: Multiplanar multisequence MRI of the lumbar spine was performed without the use of contrast. COMPARISON: Lumbar spine CT 11/15/2020. FINDINGS: For the purpose of the report the L5-S1 disc space will be located on axial image 23 of 26. No fracture or subluxation. The conus terminates at the L1 level. Paravertebral soft tissues are unremarkable. Mild disc space narrowing and disc desiccation at L4-L5. The remaining disc spaces are preserved. L1-L2: No significant central canal or neural foraminal narrowing. L2-L3: No significant central canal or neural foraminal narrowing. L3-L4: No significant central canal or neural foraminal narrowing. L4-L5: Small broad-based posterior disc bulge with a small right paracentral focal disc protrusion. This abuts but does not displace the transiting right L5 nerve root. There is also mild bilateral neural foraminal narrowing at this level. L5-S1: No significant central canal or neural foraminal narrowing. IMPRESSION: 1. No fracture or subluxation within the lumbar spine. 2. Small right paracentral focal disc protrusion at L4-5 which abuts but does not displace the transiting right L5 nerve root. ACT 112: Negative or not required by law. Electronically signed by: Zheng Rivera M.D. 11/16/2020 7:46 AM
[2021-01-07] MEDS: ONDANSETRON INJ 2 MG/ML 2 ML VIAL IV PRN ×3 (09:13→19:51)
[2021-01-07] MEDS: LIDOCAINE 5% 1 PATCH TD SCH ×2 (12:33→15:09)
[2021-01-07] MEDS ORDERED: PROMETHAZINE HCL 25 MG TAB PO PRN (17:36)
[2021-01-07] MEDS ORDERED: PROMETHAZINE HCL 25 MG TAB PO ONE (17:37)
--- NOTE | 2021-01-07 17:38 | Hospitalist Progress Note ---
Date of Service January 07, 2021 Assessment & Plan (1) Intractable back pain: Plan: Acute on chronic pain, she was evaluated by orthospine who recommends continuing conservative management. PT/OT working with her today. Per pain management continue current pain regimen. I did offer a replacement of Valium/NSAID combination in lieu of morphine this evening, however, she declined. We will give her some more time to improve. Ice ordered. Ambulate as tolerated. (2) Hypothyroidism: Plan: -Recent TSH is 16.5 in October 2020 per outpatient record review. Continue levothyroxine 250 mcg qam and follow-up with primary care provider. (3) Fibromyalgia: Plan: - cont current therapy. (4) Opiate dependence: Plan: Cont current doses of morphine (5) Anxiety: Plan: - Continue cymbalta (6) Depression: Plan: - Continue cymbalta - Would benefit from therapy and/or counselor as an outpatient - Diet and exercise - Stop smoking, cessation provided at bedside as well as order nicotine patch. (7) Prediabetes: Plan: ISS with regular FSG checks (8) Tobacco abuse: Plan: Nicoderm, smoking cessation advised. (9) Obesity: Plan: Lifestyle modifications in order to decrease percent body fat and increase lean muscle mass is recommended. (10) DVT prophylaxis: Plan: SCDs/ambulation Full Code Dispo-to home when medically stable. Sheron Dumont DO [facility] Hospitalist Admission and Anticipated Discharge Date Admission Date: January 06, 2021 Subjective Acute on chronic lower back pain, recurring. Multiple admissions for this issue. Difficulty walking and reported ambulating with a walker on admission. Still reporting severe pain. Radiates down into the front of her thighs. Pain is bilaterally originating in the lower back area. Lidocaine patch is not helpful. Some breakthrough narcotics have been helpful. She verbalized understanding that ambulation helps the pain and total bed rest may not be the best . She is motivated to move as soon as able. Tolerating p.o. Review of Systems Review of Systems: All systems were reviewed and negative except as indicated in HPI above. Physical Exam Physical Exam: CONSTITUTIONAL: obese, vitals stable, generally well-appearing EYES: normal conjunctivae, no scleral icterus ENT: external ear and nose normal, MMM RESPIRATORY: clear to auscultation bilaterally, no crackles, rales or wheezes, normal respiratory effort CARDIOVASCULAR: regular rate and rhythm, S1 and 2 heard without murmurs, gallops or rubs, no JVD, no peripheral edema GASTROINTESTINAL: soft, nontender, nondistended. MUSCULOSKELETAL: moves all extremities equally, reportedly ambulating but gait not assessed, moves around easily in the bed. SKIN: warm and dry NEUROLOGIC: CN 2-12 grossly intact, no gross focal deficits. PSYCHIATRIC: alert cooperative and oriented to person, place and time. Results & Data Results & Data ([facility]) Vital Signs (Past 12 Hours) Vital Signs Temp Pulse Resp BP Pulse Ox 01/07/21 16:09 36.6 C 56 L 16 126/79 92 01/07/21 08:05 36.6 C 55 L 18 138/81 96 Laboratory Results Short CBC 01/07/21 Range/Units 06:52 WBC 9.57 (4.8-10.8) K/uL Hgb 14.6 (12.0-16.0) g/dL Hct 44.8 (37-47) % Plt Count 234 (130-400) K/uL BMP 01/07/21 06:52 Sodium 140 Potassium 3.9 Chloride 110 H Carbon Dioxide 28 BUN 11 Creatinine 0.76 Glucose 85 Calcium 9.1 Liver Function 01/07/21 Range/Units 06:52 Total Bilirubin 0.5 (0.2-1) mg/dl AST 16 (15-37) U/L ALT 14 (12-78) U/L Alkaline Phosphatase 100 (45-117) U/L Albumin 3.0 L (3.4-5.0) gm/dl Medications Administered Current Inpatient Medications Acetaminophen (Acetaminophen 500 Mg Tab) 1,000 mg PO TID ANDREW Stop: 02/06/21 06:59 Last Admin: 01/07/21 13:19 Dose: 1,000 mg Documented by: Aspirin (Aspirin 81 Mg Ectab) 81 mg PO QAM ANDREW Stop: 02/06/21 08:59 Last Admin: 01/07/21 08:20 Dose: 81 mg Documented by: Baclofen (Baclofen 10 Mg Tab) 10 mg PO BID PRN PRN Reason: Muscle Spasm Stop: 02/05/21 21:48 Dextrose (Dextrose 50% 50 Ml Syringe) 25 - 50 ml IV UD PRN; Protocol PRN Reason: Hypoglycemia Protocol Stop: 02/05/21 21:48 Duloxetine HCl (Duloxetine Hcl 30 Mg Cap) 30 mg PO DAILY ANDREW Stop: 02/06/21 08:59 Last Admin: 01/07/21 08:20 Dose: 30 mg Documented by: Duloxetine HCl (Duloxetine Hcl 60 Mg Cap) 60 mg PO DAILY ANDREW Stop: 02/06/21 08:59 Last Admin: 01/07/21 08:20 Dose: 60 mg Documented by: Glucagon (Glucagon For Inj 1 Mg Vial) 1 mg SQ UD PRN; Protocol PRN Reason: Hypoglycemia Protocol Stop: 02/05/21 21:48 Glucose (Glucose 10 Tabs/Tube) 4 - 8 tabs PO UD PRN; Protocol PRN Reason: Hypoglycemia Protocol Stop: 02/05/21 21:48 Glucose (Glucose 40% Gel 15 Gm Tube) 15 - 30 gm PO UD PRN; Protocol PRN Reason: Hypoglycemia Protocol Stop: 02/05/21 21:48 Hydromorphone HCl (Hydromorphone Inj 0.5 Mg/0.5 Ml Syr) 0.5 mg IV Q3H PRN PRN Reason: Pain Stop: 01/20/21 21:48 Promethazine HCl 12.5 mg/ (Sodium Chloride) 50.5 mls @ 202 mls/hr IV Q6H PRN PRN Reason: Nausea And Vomiting Stop: 02/05/21 21:48 Last Infusion: 01/07/21 00:19 Dose: Infused Documented by: Famotidine 20 mg/ Syringe 5 mls @ 2.5 mls/min IV DAILY ANDREW Stop: 02/06/21 08:59 Last Admin: 01/07/21 08:21 Dose: 2.5 mls/min Documented by: Ketorolac Tromethamine (Ketorolac Tromethamine 15 Mg/Ml Vial) 15 mg IV Q6H PRN PRN Reason: Pain Stop: 01/11/21 21:48 Levothyroxine Sodium (Levothyroxine Sodium 125 Mcg Tablet) 250 mcg PO DAILYBB [facility] Stop: 02/06/21 06:29 Last Admin: 01/07/21 05:54 Dose: 250 mcg Documented by: Lidocaine (Lidocaine 5% 1 Patch) 1 patch TD QAM ANDREW Stop: 02/05/21 22:29 Last Admin: 01/07/21 15:09 Dose: 1 patch Documented by: Miscellaneous (Carbohydrates For Hypoglycemia ) 15 - 30 gm PO UD PRN PRN Reason: Hypoglycemia Protocol Stop: 02/05/21 21:48 Miscellaneous (Remove Lidoderm Patch) 1 ea N/A DAILY@2100 [facility] Stop: 02/06/21 05:59 Last Admin: 01/07/21 01:41 Dose: Not Given Documented by: Miscellaneous (Remove Nicoderm Patch) 1 ea N/A DAILY@0859 [facility] Stop: 02/06/21 08:58 Last Admin: 01/07/21 08:20 Dose: 1 ea Documented by: Morphine Sulfate (Morphine Sulfate Ir 15 Mg Tab (Immediate Release)) 15 mg PO TID PRN PRN Reason: Pain Stop: 01/20/21 21:48 Last Admin: 01/07/21 10:50 Dose: 15 mg Documented by: Morphine Sulfate (Morphine Sulfate Cr 15 Mg Tabcr) 15 mg PO TID [facility] Stop: 01/20/21 22:29 Last Admin: 01/07/21 13:19 Dose: 15 mg Documented by: Nicotine (Nicotine 21 Mg/24 Hr Tdsy) 21 mg TD QAM [facility] Stop: 02/05/21 22:29 Last Admin: 01/07/21 08:19 Dose: 21 mg Documented by: Nitroglycerin (Nitroglycerin Sl 0.4 Mg/Tab Tab) 0.4 mg SL UD PRN PRN Reason: Chest Pain Stop: 02/05/21 21:48 Ondansetron HCl (Ondansetron Inj 2 Mg/Ml 2 Ml Vial) 4 mg IV Q4H PRN PRN Reason: Nausea And Vomiting Stop: 02/05/21 21:48 Last Admin: 01/07/21 13:21 Dose: 4 mg Documented by: Polyethylene Glycol (Polyethylene (Miralax) 17 Gm Pack) 17 gm PO DAILY PRN PRN Reason: Constipation Stop: 02/05/21 21:48 Promethazine HCl (Promethazine Hcl 25 Mg Tab) 25 mg PO Q6H PRN PRN Reason: Nausea And Vomiting Stop: 02/06/21 17:35 Promethazine HCl (Promethazine Hcl 25 Mg Tab) 25 mg PO NOW ONE Stop: 01/07/21 17:38 Tizanidine HCl (Tizanidine Hcl 4 Mg Tablet) 2 mg PO Q6H PRN PRN Reason: MUSCLE SPASMS Stop: 02/05/21 21:48 Trazodone HCl (Trazodone Hcl 50 Mg Tab) 50 mg PO HS PRN PRN Reason: Insomnia Stop: 02/06/21 20:59 Last Admin: 01/06/21 23:24 Dose: 50 mg Documented by: (1) Opiate dependence Substance use status: with unspecified opioid-induced disorder Qualified Code(s): F11.29 - Opioid dependence with unspecified opioid-induced disorder (2) Hypothyroidism Hypothyroidism type: unspecified Qualified Code(s): E03.9 - Hypothyroidism, unspecified
[2021-01-08] MEDS: traZODone HCL 50 MG TAB PO PRN (01:10)
[2021-01-08] MEDS: LEVOTHYROXINE SODIUM 125 MCG TABLET PO SCH (05:43)
[2021-01-08] MEDS: ONDANSETRON INJ 2 MG/ML 2 ML VIAL IV PRN (05:43)
[2021-01-08 05:49] LABS: Hematocrit (blood only) 44.7 % (37-47); Hemoglobin 14.6 g/dL (12.0-16.0); Mean Corpuscular Hemoglobin 29.9 pg (25-34); Mean Corpuscular Hgb Conc 32.7 g/dL (32-36); Mean Corpuscular Volume 91.6 fL (80-100); Platelet Count 214 K/uL (130-400); RDW Coefficient of Variation 14.1 % (11.5-14.5); RDW Standard Deviation 47.1 fL (36.4-46.3); Red Blood Count 4.88 M/uL (4.2-5.4); White Blood Count 7.02 K/uL (4.8-10.8)
[2021-01-08 06:18] LABS: Albumin Level 3.1 gm/dl (3.4-5.0); BUN Creatinine Ratio 16.2 (10-20); Est GFR (African American) 108.5 ml/min; Est GFR (Non-African American) 93.6 ml/min
[2021-01-08 06:21] LABS: Albumin Globulin Ratio 0.9 (0.9-2); Bilirubin,Total 0.5 mg/dl (0.2-1); Globulin 3.3 gm/dl (2.5-4.0); Total Protein 6.4 gm/dl (6.4-8.2)
[2021-01-08] MEDS: MoRPHine SULFATE CR 15 MG TABCR PO SCH ×2 (09:15→14:16)
[2021-01-08] MEDS: DULoxetine HCL 60 MG CAP PO SCH (09:16)
[2021-01-08] MEDS: FAMOTIDINE 20 MG in SYRINGE 3 ML IV SCH (09:16)
[2021-01-08] MEDS: ASPIRIN 81 MG ECTAB PO SCH (09:16)
[2021-01-08] MEDS: ACETAMINOPHEN 500 MG TAB PO SCH ×2 (09:17→14:15)
[2021-01-08] MEDS: LIDOCAINE 5% 1 PATCH TD SCH (09:18)
[2021-01-08] MEDS: NICOTINE 21 MG/24 HR TDSY TD SCH (09:18)
[2021-01-08] MEDS: DULoxetine HCL 30 MG CAP PO SCH (10:22)
[2021-01-08] MEDS: MoRPHine SULFATE IR 15 MG TAB (IMMEDIATE RELEASE) PO PRN (12:46)
--- NOTE | 2021-01-08 13:56 | Discharge Summary ---
Date of Service January 08, 2021 Admission HPI Per Admitting Provider This is a 50 yo F with PMHx of hypothyroidism, prediabetes, irritable bowel syndrome, fibromyalgia, migraine, chronic pain syndrome, opiate dependence, tobacco abuse, generalized anxiety disorder, and depression. The patient was initially in the hospital around 11/17/2020, because she fell in porch in sister's place. She had multiple studies including thoracic, cervical and lumbar spine MRI and also thoracic spine and lumbar spine, head CT and chest CT and cervical CT and abdominal CT at that time and she was sent home, but on 11/17/2020 she was admitted with severe back pain and ambulatory dysfunction and she was discharged and followed up with Neurosurgery in [place] and no surgery was planned and at that time the numbness in the lower extremity was improving. She was supposed to follow pain management, Dr. Barr on phone and said no steroid shot was warranted at that time. On 11/18/2020, admitted again with same problem and she was found to have acute hypercalcemia, thought to be from hyperparathyroidism. Orthopedics evaluated her and and they also recommended nonoperative management, and was sent home. Pt was readmitted on -12/16 for same problem again, was seen by pain management team, who placed her on a medrol dose pack, baclofen, and Keppra. No interventional pain management plans were warranted. Ortho spine surgery deemed that she was not a surgical candidate and would benefit from PT/OT. She reports being evaluated as an inpatient and passing eval and did not meet for PT/OT as an outpatient. She reports doing her own PT at home on a daily basis. Pt represents today with intractable back pain. She reports it is all in her lower back and moves down the front anterior portion of her thighs. There is also pain that and numbness that radiates down from her right hip into the right ankle reports sitting on a hard bench pain worse in her lower back. She has been walking with use of a walker for a few days, but reports this is getting more difficult. She states that she is not able to take steroids due to hx of it causing psychosis. She has been using morphine ER and morphine IR as directed, last taken yesterday, as well as baclofen and Zanaflex. She reports that the latter 2 are less effective at treating her pain. She also uses both Celebrex and ibuprofen daily. Denies any GI complaints, no blood in stool, hematochezia, etc. She follows with Dr. Barr as an outpatient for the past 2 years for history of a disc slip, and had her last spinal injection in June 2020, he has not wanted to do any further injections until this problem is further improved. She admits to smoking 1 pack/day and requests nicotine patch. Denies any alcohol use. Her is present at bedside and supports the history. Admission Exam Per Admitting Provider General: awake, alert, no apparent distress, appears fatigued and in pain obese with BMI 37.1 Head: Normocephalic, atraumatic ENT: PERRL, EOMI, no pharyngeal exudate, mucous membranes moist Chest: Clear to auscultation, on room air, no adventitious breath sounds Cardiac: Regular rate and rhythm, no murmur, no JVD, normal peripheral pulses, good capillary refill Abdominal: NABS x 4 quadrants, soft, nondistended, nontender to palpation, no rebound or guarding Extremities: Normal inspection, no peripheral edema or erythema, calfs nontender to palpation Back: no point tenderness down spine, able to perform straight leg raise 2 to 3 inches off the bed Psych: Depressed mood and flat affect Neuro: AAO x 3, strength intact bilaterally and rated 5/5, no motor deficits, speech is clear, no peripheral sensory deficits Principal Diagnosis Acute on chronic lower back pain Narcotic dependence Depression Tobacco use Discharge Exam CONSTITUTIONAL: obese, vitals stable, generally well-appearing EYES: normal conjunctivae, no scleral icterus ENT: external ear and nose normal, MMM RESPIRATORY: clear to auscultation bilaterally, no crackles, rales or wheezes, normal respiratory effort CARDIOVASCULAR: regular rate and rhythm, S1 and 2 heard without murmurs, gallops or rubs, no JVD, no peripheral edema GASTROINTESTINAL: soft, nontender, nondistended. MUSCULOSKELETAL: moves all extremities equally, reportedly ambulating but gait not assessed, moves around easily in the bed. SKIN: warm and dry NEUROLOGIC: CN 2-12 grossly intact, no gross focal deficits. PSYCHIATRIC: alert cooperative and oriented to person, place and time. Discharge Data Allergies Allergy/AdvReac Type Severity Reaction Status Date / Time gabapentin Allergy Severe anaphylaxis Verified 01/06/21 14:14 tramadol Allergy Severe ANAPHYLAXIS Verified 01/06/21 14:14 chlorpheniramine Allergy Intermediate SHORTNESS Verified 01/06/21 14:14 OF BREATH guaifenesin Allergy Intermediate SHORTNESS Verified 01/06/21 14:14 OF BREATH metoclopramide AdvReac Intermediate anxiety Verified 01/06/21 14:14 Consultations 01/06/21 16:27 ED Decision to Admit Stat 01/06/21 17:31 Consult Pain Management Routine 01/07/21 08:00 Consult Orthopedic Surgery Routine Ordered Studies Laboratory Results WBC 7.02 K/uL (4.8-10.8) 01/08/21 05:35 RBC 4.88 M/uL (4.2-5.4) 01/08/21 05:35 Hgb 14.6 g/dL (12.0-16.0) 01/08/21 05:35 Hct 44.7 % (37-47) 01/08/21 05:35 MCV 91.6 fL (80-100) 01/08/21 05:35 MCH 29.9 pg (25-34) 01/08/21 05:35 MCHC 32.7 g/dL (32-36) 01/08/21 05:35 RDW Std Deviation 47.1 fL (36.4-46.3) H 01/08/21 05:35 RDW Coeff of Roro 14.1 % (11.5-14.5) 01/08/21 05:35 Plt Count 214 K/uL (130-400) 01/08/21 05:35 MPV 10.0 fL (7.4-10.4) 01/08/21 05:35 Sodium 141 mmol/L (136-145) 01/08/21 05:35 Potassium 4.0 mmol/L (3.5-5.1) 01/08/21 05:35 Chloride 111 mmol/L (98-107) H 01/08/21 05:35 Carbon Dioxide 28 mmol/L (21-32) 01/08/21 05:35 Anion Gap 2.0 (3-11) L 01/08/21 05:35 BUN 12 mg/dl (7-18) 01/08/21 05:35 Creatinine 0.75 mg/dl (0.6-1.2) 01/08/21 05:35 Est Cr Clr Drug Dosing 126.0 ml/min 01/08/21 05:35 Est GFR ( Amer) 108.5 ml/min 01/08/21 05:35 Est GFR (Non-Af Amer) 93.6 ml/min 01/08/21 05:35 BUN/Creatinine Ratio 16.2 (10-20) 01/08/21 05:35 Glucose 79 mg/dl (70-99) 01/08/21 05:35 POC Glucose 89 mg/dl (70-99) 01/07/21 12:10 Estimat Average Glucose 117 mg/dl 01/07/21 06:52 Hemoglobin A1c 5.7 % (4.5-5.6) H 01/07/21 06:52 Calcium 9.0 mg/dl (8.5-10.1) 01/08/21 05:35 Total Bilirubin 0.5 mg/dl (0.2-1) 01/08/21 05:35 AST 13 U/L (15-37) L 01/08/21 05:35 ALT 15 U/L (12-78) 01/08/21 05:35 Alkaline Phosphatase 96 U/L (45-117) 01/08/21 05:35 Total Protein 6.4 gm/dl (6.4-8.2) 01/08/21 05:35 Albumin 3.1 gm/dl (3.4-5.0) L 01/08/21 05:35 Globulin 3.3 gm/dl (2.5-4.0) 01/08/21 05:35 Albumin/Globulin Ratio 0.9 (0.9-2) 01/08/21 05:35 Urine Color Yellow 01/06/21 14:40 Urine Appearance Clear (Clear) 01/06/21 14:40 Urine pH 7.0 (4.5-7.5) 01/06/21 14:40 Ur Specific [place] 1.015 (1.000-1.030) 01/06/21 14:40 Urine Protein Negative (Negative) 01/06/21 14:40 Urine Glucose (UA) Negative (Negative) 01/06/21 14:40 Urine Ketones Negative (Negative) 01/06/21 14:40 Urine Blood 1+ (Negative) H 01/06/21 14:40 Urine Nitrite Negative (Negative) 01/06/21 14:40 Urine Bilirubin Negative (Negative) 01/06/21 14:40 Urine Urobilinogen Negative (Negative) 01/06/21 14:40 Ur Leukocyte Esterase Negative (Negative) 01/06/21 14:40 Urine WBC (Auto) 1-5 /hpf (0-5) 01/06/21 14:40 Urine RBC (Auto) 10-30 /hpf (0-4) H 01/06/21 14:40 U Hyaline Cast (Auto) 1-5 /lpf (0-5) 01/06/21 14:40 U Epithel Cells (Auto) >30 /lpf (0-5) H 01/06/21 14:40 Urine Bacteria (Auto) Negative (Negative) 01/06/21 14:40 COVID-19 Eval Order Covid19 at [facility] 01/06/21 18:18 SARS-CoV-2 (PCR) NEGATIVE (Negative) 01/06/21 18:18 Hospital Course (1) Intractable back pain: The patient is a 50-year-old female with chronic back pain who is opiate dependent presenting for acute on chronic back pain. On admission she was reporting using a walker to ambulate. She was admitted to the hospitalist service and breakthrough medications including Dilaudid IV, Toradol IV, Zofran IV and Reglan were given as needed. Ortho spine and pain management were consulted. Per spine surgeon, there was no need for further imaging given extensive imaging just 1 month ago. She does have evidence of modest disc protrusion at L4-L5 seen on MRI in November, however, there was no evidence of gross radiculopathy or clinical presentation representing change. A course of physical therapy with return home was recommended. Per pain management continuation of her current pain regimen including MS Contin 15 mg p.o. 3 times daily with morphine for breakthrough pain, Cymbalta 90 mg daily and tizanidine 2 mg every 6 hours as needed should be continued without any changes. Physical therapy was also recommended. She was evaluated by physical and Occupational Therapy during this admission. Physical therapy notes reflect that she ambulated 130 feet without an assistive device at an independent level. Her gait was slow and guarded but steady with no loss of balance or other issues. It was recommended she return home. Per occupational therapy she appears to be at her near baseline level of function and discharge home was recommended. At time of discharge she was ambulating around the room without an assistive device and pain was reportedly improved since admission. She was hemodynamically stable and afebrile and oxygenating well on room air. She was tolerating p.o. She was sent home in stable condition with close primary care follow-up recommended. (2) Fibromyalgia: (3) Opiate dependence: (4) Anxiety: (5) Depression: (6) Tobacco abuse: (7) Obesity: Total Time Total Time Spent Total Time Spent (In Minutes): 60 Discharge Plan Discharge Items Patient Disposition: Home - Self-Care Reason For Visit: INTRACTABLE BACK PAIN Discharge Diagnosis: Acute on chronic lower back pain Narcotic dependence Depression Tobacco use Condition on Discharge: Good Health Concerns: quit smoking lifestyle modifications to decrease percent body fat and increase lean muscle mass Activity: Resume your previous activity Non-emergency contact: Primary Care Provider Call non-emergency contact if: you have any medication questions, your symptoms worsen, your pain is not controlled, your pain is worsening, your pain is unusual for you and your pain is concerning for you Follow-up/Referrals: Dajuan Bell, [Primary Care Provider] - Diet: Carb Consistent or DM2 and Heart Healthy Addtl Attending Provider Instructions: Please take all medications as instructed on discharge list below. It is recommended that you follow-up with your primary care physician within one week of discharge from the hospital to ensure you are doing well after returning home. It is recommended that you quit smoking as this is terrible for your health. It is also recommended that you work on lifestyle modifications to decrease percent body fat and increased lean muscle mass. This will help with your overall general health and may also help with your back pain. It was a pleasure taking care of you! Please call if you have any questions or problems. You can reach a [facility] Hospitalist on duty at [facility] 24 hours a day by calling [phone]. Take care of yourself. Sheron Dumont DO [facility] Hospitalist Pending Studies at Discharge: No Stand-Alone Forms: [facility] Medications and DC Order Prescriptions: Continued furosemide [Lasix] 40 mg Tablet 40 mg PO QAM PRN (Reason: Edema) RF: 0 nitroglycerin [Nitrostat] 0.4 mg Tablet, Sublingual 0.4 mg Sublingual DIRECTED PRN (Reason: Chest Pain) RF: 0 morphine 15 mg tablet extended release 15 mg PO TID RF: 0 morphine 15 mg tablet 15 mg PO TID PRN (Reason: Pain) RF: 0 levothyroxine 125 mcg tablet 250 mcg PO QAM RF: 0 aspirin [Aspirin Low Dose] 81 mg Tablet,Delayed Release (Dr/Ec) 81 mg PO QAM RF: 0 metformin 500 mg tablet extended release 24 hr 500 mg PO DAILY RF: 0 duloxetine 60 mg capsule,delayed release(DR/EC) 60 mg PO DAILY RF: 0 baclofen 10 mg tablet 10 mg PO BID PRN (Reason: Muscle Spasm) RF: 0 celecoxib 200 mg capsule 200 mg PO BID RF: 0 polyethylene glycol 3350 [Miralax] 17 gram/dose Powder 17 g PO DAILY PRN (Reason: Constipation) RF: 0 duloxetine 30 mg capsule,delayed release(DR/EC) 30 mg PO DAILY RF: 0 tizanidine 2 mg tablet 2 mg PO Q6H PRN (Reason: MUSCLE SPASMS) RF: 0 acetaminophen [Tylenol Extra Strength] 500 mg Tablet 1,000 mg PO Q6H PRN (Reason: Pain) RF: 0 ibuprofen 200 mg Tablet 400 mg PO Q6H PRN (Reason: Pain) RF: 0 Discharge Orders: Discharge Order (Routine); Ordered 01/08/21 Ordered By: Sheron Dumont Admission Data Admit Date/Time: 01/07/21 17:35 Attending Provider: Sheron Dumont Admit Provider: Jing Wang Primary Care Provider: Dajuan Bell Other Providers: Eric Ponce ; Blue Martinez Upendra
== END 2021-01-08 16:39 | disposition home or self-care (01) ==
LOC: 3W 13:30 → ED 13:30 → SUATTDRO 17:24 → 3W 21:28

== ENCOUNTER 2021-02-02 16:34 | Inpatient (IN) ==
[2021-02-02] MEDS ORDERED: ONDANSETRON INJ 2 MG/ML 2 ML VIAL IV STA ×2 (16:51→19:07)
[2021-02-02 17:21] LABS: Basophils # (auto) 0.02 K/uL (0-0.2); Basophils % (auto) 0.2 %; Eosinophils # (auto) 0.05 K/uL (0-0.5); Eosinophils % (auto) 0.5 %; Hemoglobin 16.5 g/dL (12.0-16.0); Immature Granulocytes # (auto) 0.01 K/uL (0.00-0.02); Immature Granulocytes % (auto) 0.1 %; Lymphocytes # (auto) 2.54 K/uL (1.2-3.4); Lymphocytes % (auto) 24.3 %; Mean Corpuscular Hemoglobin 30.5 pg (25-34); Mean Corpuscular Hgb Conc 33.7 g/dL (32-36); Mean Corpuscular Volume 90.6 fL (80-100); Mean Platelet Volume 11.1 fL (7.4-10.4); Monocytes # (auto) 0.51 K/uL (0.11-0.59); Monocytes % (auto) 4.9 %; Neutrophils # (auto) 7.32 K/uL (1.4-6.5); Platelet Count 261 K/uL (130-400); RDW Coefficient of Variation 14.6 % (11.5-14.5); RDW Standard Deviation 48.4 fL (36.4-46.3); Red Blood Count 5.41 M/uL (4.2-5.4); White Blood Count 10.45 K/uL (4.8-10.8)
[2021-02-02 17:40] LABS: BUN Creatinine Ratio 10.7 (10-20); Calcium 10.3 mg/dl (8.5-10.1); Est GFR (African American) 70.6 ml/min; Est GFR (Non-African American) 60.9 ml/min; Potassium 3.7 mmol/L (3.5-5.1)
[2021-02-02 17:43] LABS: Albumin Globulin Ratio 0.9 (0.9-2); Bilirubin,Total 0.5 mg/dl (0.2-1); Globulin 4.6 gm/dl (2.5-4.0); Total Protein 8.6 gm/dl (6.4-8.2)
[2021-02-02] MEDS ORDERED: MoRPHine SULFATE 10 MG/ML CARP/VIAL IV STA ×3 (19:07→21:19)
[2021-02-02] MEDS ORDERED: SODIUM CHLORIDE 0.9% 1000ML 1,000 ML IV ONE (19:07)
--- NOTE | 2021-02-02 19:10 | Emergency Department Note ---
Impression & Plan Intractable low back pain ED Provider Note Name: ALLAN FLORENCE Age: 50 Sex: F Arrives Via: Walk-In Informant: Patient ED Provider: Tony Griffin MD Chief Complaint: Back Pain Impression: See Above Medical Decision Makin yr old female with chronic pain who is on morphine several times daily arrives with exacerbation of low back pain which has been bothering her since she fell a few months ago. Pain exacerbating after apparently leaning forward yesterday. No neuro deficits but unable to ambulate due to pain. Pain leading to nausea/vomiting which has worsened to point where unable to keep down her morphine at home. Multiple rounds morphine without improvement. CT lumbar/pelvis without any acute new fractures/findings. Labs unremarkable. No evidence of infection. Unable to discharge to home given amount of pain and in ability to ambulate thus hospitalist consulted for further management. She is allergic to all steroids thus no decadron given. Prior Medical Record and Triage/Nursing Notes reviewed by Me Additional history obtained from chart Differentials:Musculoskeletal, disc herniation, fracture, metastatic disease, cord compression, discitis, sciatica, cauda equina, infection, aortic disease, renal colic, gastrointestinal, as well as other pathologies. Vital Signs: reviewed and remarkable for no significant abnormalities Interventions: saline lock, morphine 10mg iv x 2, morphine 6mg iv, zofran iv, phenergan iv. Labs:Reviewed and remarkable for no significant abnormalities Imaging:Radiologist interpretation reviewed by me: CT Pelvis/lumbar no acute findings Consults:Dr Anup Cornelius Hospitalist Plan: Disposition:Hospitalization. Condition: Good History of Present Illness:50 yr old female arrives for evaluation of low back pain. Patient with chronic pains and worsening after fall down stair 3 months ago. Working with spine surgeon for pain control and management the last few months. Uses Morphine daily for pain control for the last few years. Last night notes she bent forward and had sudden onset severe lower back pain. Worse in tailbone area. Has been having right sciatica for the last few months. Toradol IM at PCP without improvement this afternoon. No new weakness, loss bowel/bladder, leg swelling, nor other symptoms. Denies fevers, chills, abdominal pain, syncope, cp, sob, headache, nor other symptoms. No other injuries. ROS: See above HPI for pertinent positives & negatives. A total of 10 systems re viewed and were otherwise negative. Past Medical History:See Below Past Surgical History:See Below Family History:See Below Social History:See Below Home Medications:See Below Allergies:See Below Vitals:Blood Pressure: 120/78, Pulse 70, RR 16, T 36.5C, O2 96% on RA Physical Exam: GENERAL: Patient is very uncomfortable appearing and in moderate distress. EYES: No scleral icterus, unremarkable pupils. ENT: Mucous membranes moist, no nasal congestion. NECK: No masses appreciated, nomeningismus, trachea is midline. RESPIRATORY: No dyspnea. Clear to auscultation and equal bilaterally. No wheeze, no rhonchi. CARDIOVASCULAR: Regular rate and rhythm.No murmurs, rubs, gallops appreciated. GASTROINTESTINAL: Abdomen soft, non-tender, no peritonitis.Bowel sounds positive.No masses appreciated. BACK: TTP entire lumbar spine and coccyx, no CVA tenderness EXTREMITIES: Normal motion all extremities, no cyanosis, no edema. NEUROLOGIC: Alert and oriented, no acute motor or sensory deficits, no focal weakness, cranial nerves grossly intact. SKIN: No rash, no jaundice, no diaphoresis. PSYCH: Appropriate GCS: 15 ED Course: Times/Reassessments: Intractable pain Tony Griffin MD Past Med/Surg History Medical History (Updated 02/03/21 @ 02:10 by Tony Griffin MD) Acute exacerbation of chronic low back pain Anxiety Atelectasis Back pain Bulging lumbar disc Small broad-based posterior disc bulge with a small right paracentral focal disc protrusion Cardiomyopathy 2014 - thought to be stress induced, reported normal dobutamine stress and echo after Chronic back pain Chronic pain syndrome Depression Fibromyalgia H/O traumatic brain injury Hypokalemia Hypothyroidism (Unknown) IBS (irritable bowel syndrome) Intractable back pain Intractable nausea and vomiting Migraines Opiate dependence Tobacco abuse Surgical History Bilateral tubal ligation (Unknown) section (Unknown) H/O colonoscopy "2006 path normal" H/O cystoscopy H/O esophagogastroduodenoscopy "2006 path normal" Hx of appendectomy Hx of cholecystectomy Hx of hysterectomy S/P lymph node biopsy "deep cervical inflammatory node 2007" Family History Other Diabetes Hypertension Thyroid disorder Social History Smoking Status: Current every day smoker Tobacco Type: Cigarettes Cigarettes Per Day: 10; Second Hand Exposure: Yes; Do You Dip or Chew Tobacco: No; Tobacco Cessation Education Requested by Patient: No Hx Alcohol Use: No Hx Substance Use: No Preferred Language: Eritrean Communication Ability: Effective Visual Impairment: Partially Limited Window Glass Cutter Off Required: No Beliefs That Will Affect Care: None marital status: Current Living Situation: Spouse and Family Feels Safe at Home: Yes Safety Concerns: Feels Safe At This Time Assistive Devices: Glasses and Walker Allergies Allergies Allergy/AdvReac Type Severity Reaction Status Date / Time gabapentin Allergy Severe anaphylaxis Verified 02/02/21 19:21 tramadol Allergy Severe ANAPHYLAXIS Verified 02/02/21 19:21 chlorpheniramine Allergy Intermediate SHORTNESS Verified 02/02/21 19:21 OF BREATH guaifenesin Allergy Intermediate SHORTNESS Verified 02/02/21 19:21 OF BREATH metoclopramide AdvReac Intermediate anxiety Verified 02/02/21 19:21 Home Meds Home Medications Medication Instructions Recorded Confirmed furosemide 40 mg tablet (Lasix) 40 mg PO QAM PRN 03/17/18 02/02/21 nitroglycerin 0.4 mg sublingual 0.4 mg SUBLINGUAL DIRECTED PRN 03/17/18 02/02/21 tablet (Nitrostat) morphine 15 mg tablet,extended 15 mg PO TID 10/06/18 02/02/21 release levothyroxine 125 mcg tablet 250 mcg PO QAM 12/28/19 02/02/21 morphine 15 mg immediate release 15 mg PO TID PRN 12/28/19 02/02/21 tablet aspirin 81 mg tablet,delayed 81 mg PO QAM 09/23/20 02/02/21 release (Aspirin Low Dose) duloxetine 60 mg capsule,delayed 60 mg PO DAILY 09/24/20 02/02/21 release metformin 500 mg tablet,extended 500 mg PO DAILY 09/24/20 02/02/21 release 24 hr duloxetine 30 mg capsule,delayed 30 mg PO DAILY 11/15/20 02/02/21 release polyethylene glycol 3350 17 17 g PO DAILY PRN 11/15/20 02/02/21 gram/dose oral powder (Miralax) acetaminophen 500 mg tablet 1,000 mg PO Q6H PRN 11/16/20 02/02/21 (Tylenol Extra Strength) ibuprofen 200 mg tablet 400 mg PO Q6H PRN 11/16/20 02/02/21 tizanidine 2 mg tablet 2 mg PO Q6H PRN 11/16/20 02/02/21 baclofen 10 mg tablet 10 mg PO BID PRN 01/06/21 02/02/21 celecoxib 200 mg capsule 200 mg PO BID PRN 01/06/21 02/02/21 Results & Data (ED) Vital Signs Vital Signs - 24 hr 02/02/21 16:48 02/02/21 20:39 02/02/21 20:40 Temperature 36.5 C Temperature Source Temporal Artery Scan Pulse Rate 70 Pulse Rate [Right Finger] 57 L Respiratory Rate 16 14 Blood Pressure 120/78 Blood Pressure [Right Arm] 146/82 H Blood Pressure Mean 92 Blood Pressure Mean [Right Arm] 103 Pulse Oximetry 96 80 L 95 Oxygen Delivery Method Room Air Room Air Nasal Cannula Oxygen Flow Rate 1 Sepsis Recent Fever Within 48 Hours No Sepsis New/Unexplained Change in Mental Status No Sepsis Action Taken by Nursing No Action Required 02/02/21 21:57 Temperature Temperature Source Pulse Rate Pulse Rate [Right Finger] 54 L Respiratory Rate 16 Blood Pressure Blood Pressure [Right Arm] 126/82 Blood Pressure Mean Blood Pressure Mean [Right Arm] 96 Pulse Oximetry 94 Oxygen Delivery Method Nasal Cannula Oxygen Flow Rate 1 Sepsis Recent Fever Within 48 Hours Sepsis New/Unexplained Change in Mental Status Sepsis Action Taken by Nursing Laboratory Data Result diagrams: 02/02/21 17:12 02/02/21 17:12 Lab Results 02/02/21 02/02/21 02/02/21 Range/Units 17:12 17:12 17:12 WBC 10.45 (4.8-10.8) K/uL RBC 5.41 H (4.2-5.4) M/uL Hgb 16.5 H (12.0-16.0) g/dL Hct 49.0 H (37-47) % MCV 90.6 (80-100) fL MCH 30.5 (25-34) pg MCHC 33.7 (32-36) g/dL RDW Std Deviation 48.4 H (36.4-46.3) fL RDW Coeff of Roro 14.6 H (11.5-14.5) % Plt Count 261 (130-400) K/uL MPV 11.1 H (7.4-10.4) fL Immature Gran % (Auto) 0.1 % Neut % (Auto) 70.0 % Lymph % (Auto) 24.3 % [place] % (Auto) 4.9 % Eos % (Auto) 0.5 % Baso % (Auto) 0.2 % Neut # (Auto) 7.32 H (1.4-6.5) K/uL Lymph # (Auto) 2.54 (1.2-3.4) K/uL [place] # (Auto) 0.51 (0.11-0.59) K/uL Eos # (Auto) 0.05 (0-0.5) K/uL Baso # (Auto) 0.02 (0-0.2) K/uL Immature Gran # (Auto) 0.01 (0.00-0.02) K/uL Sodium 140 (136-145) mmol/L Potassium 3.7 (3.5-5.1) mmol/L Chloride 107 (98-107) mmol/L Carbon Dioxide 28 (21-32) mmol/L Anion Gap 5.0 (3-11) BUN 11 (7-18) mg/dl Creatinine 1.07 (0.6-1.2) mg/dl Est Cr Clr Drug Dosing 88.0 ml/min Est GFR ( Amer) 70.6 ml/min Est GFR (Non-Af Amer) 60.9 ml/min BUN/Creatinine Ratio 10.7 (10-20) Glucose 99 (70-99) mg/dl Calcium 10.3 H (8.5-10.1) mg/dl Total Bilirubin 0.5 (0.2-1) mg/dl AST 13 L (15-37) U/L ALT 19 (12-78) U/L Alkaline Phosphatase 134 H (45-117) U/L NT-Pro-B Natriuret Pep 93 (0-450) pg/ml Total Protein 8.6 H (6.4-8.2) gm/dl Albumin 4.0 (3.4-5.0) gm/dl Globulin 4.6 H (2.5-4.0) gm/dl Albumin/Globulin Ratio 0.9 (0.9-2) COVID-19 Eval Order SARS-CoV-2 (PCR) (Negative) 02/02/21 02/02/21 Range/Units 21:33 21:33 WBC (4.8-10.8) K/uL RBC (4.2-5.4) M/uL Hgb (12.0-16.0) g/dL Hct (37-47) % MCV (80-100) fL MCH (25-34) pg MCHC (32-36) g/dL RDW Std Deviation (36.4-46.3) fL RDW Coeff of Roro (11.5-14.5) % Plt Count (130-400) K/uL MPV (7.4-10.4) fL Immature Gran % (Auto) % Neut % (Auto) % Lymph % (Auto) % [place] % (Auto) % Eos % (Auto) % Baso % (Auto) % Neut # (Auto) (1.4-6.5) K/uL Lymph # (Auto) (1.2-3.4) K/uL [place] # (Auto) (0.11-0.59) K/uL Eos # (Auto) (0-0.5) K/uL Baso # (Auto) (0-0.2) K/uL Immature Gran # (Auto) (0.00-0.02) K/uL Sodium (136-145) mmol/L Potassium (3.5-5.1) mmol/L Chloride (98-107) mmol/L Carbon Dioxide (21-32) mmol/L Anion Gap (3-11) BUN (7-18) mg/dl Creatinine (0.6-1.2) mg/dl Est Cr Clr Drug Dosing ml/min Est GFR ( Amer) ml/min Est GFR (Non-Af Amer) ml/min BUN/Creatinine Ratio (10-20) Glucose (70-99) mg/dl Calcium (8.5-10.1) mg/dl Total Bilirubin (0.2-1) mg/dl AST (15-37) U/L ALT (12-78) U/L Alkaline Phosphatase (45-117) U/L NT-Pro-B Natriuret Pep (0-450) pg/ml Total Protein (6.4-8.2) gm/dl Albumin (3.4-5.0) gm/dl Globulin (2.5-4.0) gm/dl Albumin/Globulin Ratio (0.9-2) COVID-19 Eval Order Covid19 at [facility] SARS-CoV-2 (PCR) NEGATIVE (Negative) Administered Medications Lactated Ringer's (Lr) 1,000 mls @ 60 mls/hr IV .[id number] ONE Stop: 02/03/21 17:06 Last Admin: 02/03/21 00:55 Dose: 60 mls/hr Documented by: [id number] Ketorolac Tromethamine (Ketorolac Tromethamine 15 Mg/Ml Vial) 15 mg IV Q6H PRN PRN Reason: Pain Stop: 02/08/21 00:01 Last Admin: 02/03/21 00:54 Dose: 15 mg Documented by: [id number] Discontinued Medications Sodium Chloride (Nss 1000ml) 1,000 mls @ 999 mls/hr IV .[id number] ONE Stop: 02/02/21 20:07 Last Infusion: 02/02/21 20:39 Dose: 0 mls/hr Documented by: [id number] Admin: 02/02/21 19:36 Dose: 999 mls/hr Documented by: [id number] Promethazine HCl (Phenergan) 25 mg in 51 mls @ 204 mls/hr IV NOW STA Stop: 02/02/21 20:27 Last Infusion: 02/02/21 20:39 Dose: 0 mls/hr Documented by: [id number] Admin: 02/02/21 20:24 Dose: 204 mls/hr Documented by: [id number] Lidocaine (Lidocaine 5% 1 Patch) 1 patch TD NOW ONE Stop: 02/02/21 21:31 Last Admin: 02/02/21 21:35 Dose: 1 patch Documented by: [id number] Morphine Sulfate (Morphine Sulfate 10 Mg/Ml Carp/Vial) 10 mg IV NOW STA Stop: 02/02/21 19:08 Last Admin: 02/02/21 19:36 Dose: 10 mg Documented by: [id number] Morphine Sulfate (Morphine Sulfate 10 Mg/Ml Carp/Vial) 10 mg IV NOW STA Stop: 02/02/21 20:14 Last Admin: 02/02/21 20:24 Dose: 10 mg Documented by: [id number] Morphine Sulfate (Morphine Sulfate 10 Mg/Ml Carp/Vial) 6 mg IV NOW STA Stop: 02/02/21 21:20 Last Admin: 02/02/21 21:35 Dose: 6 mg Documented by: [id number] Ondansetron HCl (Ondansetron Inj 2 Mg/Ml 2 Ml Vial) 4 mg IV NOW STA Stop: 02/02/21 16:52 Last Admin: 02/02/21 19:36 Dose: Not Given Documented by: [id number] Ondansetron HCl (Ondansetron Inj 2 Mg/Ml 2 Ml Vial) 4 mg IV NOW STA Stop: 02/02/21 19:08 Last Admin: 02/02/21 19:36 Dose: 4 mg Documented by: [id number] Imaging Data Radiologist's Impression: Lumbar Spine CT 02/02/21 19:07 CT SCAN OF THE LUMBAR SPINE WITHOUT IV CONTRAST CLINICAL HISTORY: Fall. Low back pain. COMPARISON STUDY: Lumbar spine CT dated 11/17/2020. CT and MRI of the lumbar spine dated 11/15/2020. TECHNIQUE: CT scan of the lumbar spine is performed from the lower thoracic spine to the sacrum. Images are reviewed in the axial, sagittal, and coronal planes. IV contrast was not administered for this examination. A dose lowering technique was utilized adhering to the principles of ALARA. CT DOSE: 689.55 mGycm FINDINGS: The skeletal structures are well mineralized. There is no evidence of fracture or malalignment involving the lumbar spine. Vertebral body height and alignment are maintained. The transverse and spinous processes appear intact. There is no spondylolysis. No lytic or blastic lesion is seen. The disc spaces are maintained. Posterior disc bulge eccentric to the right is again seen at L4- L5. There may be a small laterally extruded fragment seen on axial image #211. There is no CT evidence of high-grade central canal stenosis. The visualized sacrum and bony pelvis appear intact. The paraspinous soft tissues are within normal limits. IMPRESSION: 1. No osseous abnormality is identified involving the lumbar spine. 2. Degenerative disc disease at L4-L5 is similar to previous. ACT 112: Negative or not required by law. Electronically signed by: Elvin Stephen M.D. 02/02/2021 7:[address] 02/02/21 19:07 CT SCAN OF THE PELVIS WITHOUT IV CONTRAST CLINICAL HISTORY: Fall. Sacrococcygeal pain. COMPARISON STUDY: Pelvic CT dated 11/17/2020. TECHNIQUE: CT scan of the pelvis is performed from the pelvic inlet to the pro ximal femora. Images are reviewed in the axial, sagittal, and coronal planes. IV contrast was not administered for this examination. A dose lowering technique was utilized adhering to the principles of ALARA. FINDINGS: The skeletal structures are well mineralized. No fracture is seen involving the hips or bony pelvis. The joint spaces of the hips are maintained with no evidence of effusion. The sacroiliac joints are normal. No lytic or blastic lesion is seen. The regional musculature is normal and symmetric. The bladder is normal as visualized. The uterus is surgically absent. No adnexal lesion is seen. No intraperitoneal free air or free fluid is seen in the pelvis. There is no pelvic sidewall or inguinal adenopathy. Imaged portions of the small bowel and colon are normal in appearance. IMPRESSION: No acute bony abnormality is identified. ACT 112: Negative or not required by law. Electronically signed by: Elvin Stephen M.D. 02/02/2021 7:50 PM Discharge Plan Visit Data Chief Complaint: Back Injury/Pain Stated Complaint: SEVERE BACK PAIN, VOMITING ED Provider: Tony Griffin Discharge Problem: Intractable low back pain Patient Disposition: Admitted As Inpatient Discharge Instructions Interventions: ED Discharge Assessment Last Done: 02/02/21 23:42
--- NOTE | 2021-02-02 19:47 | CT Scan Report ---
CT SCAN OF THE LUMBAR SPINE WITHOUT IV CONTRAST CLINICAL HISTORY: Fall. Low back pain. COMPARISON STUDY: Lumbar spine CT dated 11/17/2020. CT and MRI of the lumbar spine dated 11/15/2020. TECHNIQUE: CT scan of the lumbar spine is performed from the lower thoracic spine to the sacrum. Imag es are reviewed in the axial, sagittal, and coronal planes. IV contrast was not administered for this examination. A dose lowering technique was utilized adhering to the principles of ALARA. CT DOSE: 689.55 mGycm FINDINGS: The skeletal structures are well mineralized. There is no evidence of fracture or malalignm ent involving the lumbar spine. Vertebral body height and alignment are maintained. The transverse an d spinous processes appear intact. There is no spondylolysis. No lytic or blastic lesion is seen. The disc spaces are maintained. Posterior disc bulge eccentric to the right is again seen at L4-L5. Ther e may be a small laterally extruded fragment seen on axial image #211. There is no CT evidence of hig h-grade central canal stenosis. The visualized sacrum and bony pelvis appear intact. The paraspinous soft tissues are within normal limits. IMPRESSION: 1. No osseous abnormality is identified involving the lumbar spine. 2. Degenerative disc disease at L4-L5 is similar to previous. ACT 112: Negative or not required by law. Electronically signed by: Elvin Stephen M.D. 02/02/2021 7:45 PM
--- NOTE | 2021-02-02 19:51 | CT Scan Report ---
CT SCAN OF THE PELVIS WITHOUT IV CONTRAST CLINICAL HISTORY: Fall. Sacrococcygeal pain. COMPARISON STUDY: Pelvic CT dated 11/17/2020. TECHNIQUE: CT scan of the pelvis is performed from the pelvic inlet to the proximal femora. Images a re reviewed in the axial, sagittal, and coronal planes. IV contrast was not administered for this exa mination. A dose lowering technique was utilized adhering to the principles of ALARA. FINDINGS: The skeletal structures are well mineralized. No fracture is seen involving the hips or bon y pelvis. The joint spaces of the hips are maintained with no evidence of effusion. The sacroiliac julio césar ints are normal. No lytic or blastic lesion is seen. The regional musculature is normal and symmetric . The bladder is normal as visualized. The uterus is surgically absent. No adnexal lesion is seen. No intraperitoneal free air or free fluid is seen in the pelvis. There is no pelvic sidewall or inguina l adenopathy. Imaged portions of the small bowel and colon are normal in appearance. IMPRESSION: No acute bony abnormality is identified. ACT 112: Negative or not required by law. Electronically signed by: Elvin Stephen M.D. 02/02/2021 7:50 PM
[2021-02-02] MEDS ORDERED: PROMETHAZINE 25 MG/51 ML BAG IV STA (20:13)
[2021-02-02] MEDS ORDERED: LIDOCAINE 5% 1 PATCH TD ONE (21:30)
--- NOTE | 2021-02-02 22:55 | History & Physical Report ---
Date of Service February 02, 2021 Assessment & Plan (1) Intractable low back pain: Plan: Recurrent confinements for lumbar radiculopathy after traumatic injury from November 2020 Chronic pain/fibromyalgia on narcotics primary hyperparathyroidism, patient follows with [facility] Nephrology; scheduled to see [facility] endocrinology next month hx cardiomyopathy as per records (EF 60 to 65%, TTE 2019), patient on the dry side Anxiety/mood disorder, symptoms at baseline as per patient Hypothyroidism, euthyroid as of recent TSH Prediabetes, hemoglobin A1c of 5.09 November 2020 Ongoing tobacco abuse [facility]BS [facility] Analgesia Judicious narcotic use Orthopedics Spine consultation Re: Recurrent back pain May benefit from Pain Management consultation pending orthopedic spine eval. Nicotine patch DVT prophylaxis. SCDs RE possible procedural intervention Full code Patient's requesting updates from providers. Mr. Ayush Schneider, contact #[phone]. Text document was generated using Usetrace voice recognition software. It may contain grammatical or spelling errors. Kindly contact undersigned for clarification of any documentation item in question. History of Present Illness Chief Complaint: Worsening back pain Primary Care Provider: Dajuan Bell, History obtained from patient, family, and records. Medical history significant for chronic pain/fibromyalgia as per records, IBS as per records, primary hyperparathyroidism, anxiety/mood disorder, past history cardiomyopathy (TTE 60 to 65%, TTE 2019), hypothyroidism, prediabetes, ongoing tobacco abuse. Patient fell from her sister's porch 3 months ago. Four hospital confinements since accident for intractable back pain, last one from January 07-2020. Physical therapy recommended by Orthopedics Spine and Pain management. Patient was on the commode yesterday when she felt something pop on her low back. Subsequent worsening of chronic back pain with radiation to the right lower extremity. No unusual weakness, numbness, incontinence. No fever, no chills. No chest pain, no S OB, no unusual cough. Intractable discomfort at the ER. Medical History as above : Surgical History : Cervical lymph node biopsy, section, cystoscopy, appendectomy, BTL, partial hysterectomy, cholecystectomy Family History : Crohn's disease Personal/Social history : One pack daily, no EtOH intake, disabled Allergies Allergy/AdvReac Type Severity Reaction Status Date / Time gabapentin Allergy Severe anaphylaxis Verified 02/02/21 19:21 tramadol Allergy Severe ANAPHYLAXIS Verified 02/02/21 19:21 chlorpheniramine Allergy Intermediate SHORTNESS Verified 02/02/21 19:21 OF BREATH guaifenesin Allergy Intermediate SHORTNESS Verified 02/02/21 19:21 OF BREATH metoclopramide AdvReac Intermediate anxiety Verified 02/02/21 19:21 Home Medications Medication Instructions Recorded Confirmed Type furosemide 40 mg tablet (Lasix) 40 mg PO QAM PRN 03/17/18 02/02/21 History nitroglycerin 0.4 mg sublingual 0.4 mg SUBLINGUAL DIRECTED PRN 03/17/18 02/02/21 History tablet (Nitrostat) morphine 15 mg tablet,extended 15 mg PO TID 10/06/18 02/02/21 History release levothyroxine 125 mcg tablet 250 mcg PO QAM 12/28/19 02/02/21 History morphine 15 mg immediate release 15 mg PO TID PRN 12/28/19 02/02/21 History tablet aspirin 81 mg tablet,delayed 81 mg PO QAM 09/23/20 02/02/21 History release (Aspirin Low Dose) duloxetine 60 mg capsule,delayed 60 mg PO DAILY 09/24/20 02/02/21 History release metformin 500 mg tablet,extended 500 mg PO DAILY 09/24/20 02/02/21 History release 24 hr duloxetine 30 mg capsule,delayed 30 mg PO DAILY 11/15/20 02/02/21 History release polyethylene glycol 3350 17 17 g PO DAILY PRN 11/15/20 02/02/21 History gram/dose oral powder (Miralax) acetaminophen 500 mg tablet 1,000 mg PO Q6H PRN 11/16/20 02/02/21 History (Tylenol Extra Strength) ibuprofen 200 mg tablet 400 mg PO Q6H PRN 11/16/20 02/02/21 History tizanidine 2 mg tablet 2 mg PO Q6H PRN 11/16/20 02/02/21 History baclofen 10 mg tablet 10 mg PO BID PRN 01/06/21 02/02/21 History celecoxib 200 mg capsule 200 mg PO BID PRN 01/06/21 02/02/21 History Past Med/Surg History Medical History Acute exacerbation of chronic low back pain Anxiety Atelectasis Back pain Bulging lumbar disc Small broad-based posterior disc bulge with a small right paracentral focal disc protrusion Cardiomyopathy 2015 - thought to be stress induced, reported normal dobutamine stress and echo after Chronic back pain Chronic pain syndrome Depression Fibromyalgia H/O traumatic brain injury Hypokalemia Hypothyroidism (Unknown) IBS (irritable bowel syndrome) Intractable back pain Intractable nausea and vomiting Migraines Opiate dependence Tobacco abuse Surgical History Bilateral tubal ligation (Unknown) section (Unknown) H/O colonoscopy "2006 path normal" H/O cystoscopy H/O esophagogastroduodenoscopy "2006 path normal" Hx of appendectomy Hx of cholecystectomy Hx of hysterectomy S/P lymph node biopsy "deep cervical inflammatory node 2007" Family History Other Diabetes Hypertension Thyroid disorder Social History Smoking Status: Current every day smoker Tobacco Type: Cigarettes Cigarettes Per Day: 10; Second Hand Exposure: Yes; Do You Dip or Chew Tobacco: No; Tobacco Cessation Education Requested by Patient: No Hx Alcohol Use: No Hx Substance Use: No Preferred Language: Estonian Communication Ability: Effective Visual Impairment: Partially Limited 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 Pilot Flight 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 Required: No Beliefs That Will Affect Care: None marital status: Current Living Situation: Spouse and Family Feels Safe at Home: Yes Safety Concerns: Feels Safe At This Time Assistive Devices: Glasses and Walker Review of Systems Review of Systems: As per HPI, all 10 systems reviewed, all other ROS negative Physical Exam Physical Exam: GENERAL: uncomfortable, obese, no respiratory distress SKIN: Normal color, warm HEENT: [place] palpebral conjunctivae, no ptosis, dry buccal mucosa NECK : Supple, short neck, no tenderness CHEST : Decreased breath sounds, no tenderness HEART : Bradycardic, no obvious murmurs ABDOMEN: Some distention, nontender BACK : Low back tenderness, straight leg raise test R>L EXTREMITIES : Minimal LE swelling, no LE tenderness, no other conspicuous deformities noted NEUROLOGIC : Coherent, no facial asymmetry, no other gross focality Results & Data Results & Data ([facility]) Vital Signs (Past 12 Hours) Vital Signs Temp Pulse Pulse Resp BP BP Pulse Ox 02/02/21 21:57 54 L 16 126/82 94 02/02/21 20:40 95 02/02/21 20:39 57 L 14 146/82 H 80 L 02/02/21 16:48 36.5 C 70 16 120/78 96 Laboratory Results Laboratory Results WBC 10.45 K/uL (4.8-10.8) 02/02/21 17:12 RBC 5.41 M/uL (4.2-5.4) H 02/02/21 17:12 Hgb 16.5 g/dL (12.0-16.0) H 02/02/21 17:12 Hct 49.0 % (37-47) H 02/02/21 17:12 MCV 90.6 fL (80-100) 02/02/21 17:12 MCH 30.5 pg (25-34) 02/02/21 17:12 MCHC 33.7 g/dL (32-36) 02/02/21 17:12 RDW Std Deviation 48.4 fL (36.4-46.3) H 02/02/21 17:12 RDW Coeff of Roro 14.6 % (11.5-14.5) H 02/02/21 17:12 Plt Count 261 K/uL (130-400) 02/02/21 17:12 MPV 11.1 fL (7.4-10.4) H 02/02/21 17:12 Immature Gran % (Auto) 0.1 % 02/02/21 17:12 Neut % (Auto) 70.0 % 02/02/21 17:12 Lymph % (Auto) 24.3 % 02/02/21 17:12 Porter % (Auto) 4.9 % 02/02/21 17:12 Eos % (Auto) 0.5 % 02/02/21 17:12 Baso % (Auto) 0.2 % 02/02/21 17:12 Neut # (Auto) 7.32 K/uL (1.4-6.5) H 02/02/21 17:12 Lymph # (Auto) 2.54 K/uL (1.2-3.4) 02/02/21 17:12 Porter # (Auto) 0.51 K/uL (0.11-0.59) 02/02/21 17:12 Eos # (Auto) 0.05 K/uL (0-0.5) 02/02/21 17:12 Baso # (Auto) 0.02 K/uL (0-0.2) 02/02/21 17:12 Immature Gran # (Auto) 0.01 K/uL (0.00-0.02) 02/02/21 17:12 Sodium 140 mmol/L (136-145) 02/02/21 17:12 Potassium 3.7 mmol/L (3.5-5.1) 02/02/21 17:12 Chloride 107 mmol/L (98-107) 02/02/21 17:12 Carbon Dioxide 28 mmol/L (21-32) 02/02/21 17:12 Anion Gap 5.0 (3-11) 02/02/21 17:12 BUN 11 mg/dl (7-18) 02/02/21 17:12 Creatinine 1.07 mg/dl (0.6-1.2) 02/02/21 17:12 Est Cr Clr Drug Dosing 88.0 ml/min 02/02/21 17:12 Est GFR ( Amer) 70.6 ml/min 02/02/21 17:12 Est GFR (Non-Af Amer) 60.9 ml/min 02/02/21 17:12 BUN/Creatinine Ratio 10.7 (10-20) 02/02/21 17:12 Glucose 99 mg/dl (70-99) 02/02/21 17:12 Calcium 10.3 mg/dl (8.5-10.1) H 02/02/21 17:12 Total Bilirubin 0.5 mg/dl (0.2-1) 02/02/21 17:12 AST 13 U/L (15-37) L 02/02/21 17:12 ALT 19 U/L (12-78) 02/02/21 17:12 Alkaline Phosphatase 134 U/L (45-117) H 02/02/21 17:12 Total Protein 8.6 gm/dl (6.4-8.2) H 02/02/21 17:12 Albumin 4.0 gm/dl (3.4-5.0) 02/02/21 17:12 Globulin 4.6 gm/dl (2.5-4.0) H 02/02/21 17:12 Albumin/Globulin Ratio 0.9 (0.9-2) 02/02/21 17:12 COVID-19 Eval Order Covid19 at [facility] 02/02/21 21:33 SARS-CoV-2 (PCR) NEGATIVE (Negative) 02/02/21 21:[address] 02/02/21 19:07 CT SCAN OF THE LUMBAR SPINE WITHOUT IV CONTRAST CLINICAL HISTORY: Fall. Low back pain. COMPARISON STUDY: Lumbar spine CT dated 11/17/2020. CT and MRI of the lumbar spine dated 11/15/2020. TECHNIQUE: CT scan of the lumbar spine is performed from the lower thoracic spine to the sacrum. Images are reviewed in the axial, sagittal, and coronal planes. IV contrast was not administered for this examination. A dose lowering technique was utilized adhering to the principles of ALARA. CT DOSE: 689.55 mGycm FINDINGS: The skeletal structures are well mineralized. There is no evidence of fracture or malalignment involving the lumbar spine. Vertebral body height and alignment are maintained. The transverse and spinous processes appear intact. There is no spondylolysis. No lytic or blastic lesion is seen. The disc spaces are maintained. Posterior disc bulge eccentric to the right is again seen at L4- L5. There may be a small laterally extruded fragment seen on axial image #211. There is no CT evidence of high-grade central canal stenosis. The visualized sacrum and bony pelvis appear intact. The paraspinous soft tissues are within normal limits. IMPRESSION: 1. No osseous abnormality is identified involving the lumbar spine. 2. Degenerative disc disease at L4-L5 is similar to previous. ACT 112: Negative or not required by law. Electronically signed by: Elvin Stephen M.D. 02/02/2021 7:[address] 02/02/21 19:07 CT SCAN OF THE PELVIS WITHOUT IV CONTRAST CLINICAL HISTORY: Fall. Sacrococcygeal pain. COMPARISON STUDY: Pelvic CT dated 11/17/2020. TECHNIQUE: CT scan of the pelvis is performed from the pelvic inlet to the proximal femora. Images are reviewed in the axial, sagittal, and coronal planes. IV contrast was not administered for this examination. A dose lowering technique was utilized adhering to the principles of ALARA. FINDINGS: The skeletal structures are well mineralized. No fracture is seen involving the hips or bony pelvis. The joint spaces of the hips are maintained with no evidence of effusion. The sacroiliac joints are normal. No lytic or blastic lesion is seen. The regional musculature is normal and symmetric. The bladder is normal as visualized. The uterus is surgically absent. No adnexal lesion is seen. No intraperitoneal free air or free fluid is seen in the pelvis. There is no pelvic sidewall or inguinal adenopathy. Imaged portions of the small bowel and colon are normal in appearance. IMPRESSION: No acute bony abnormality is identified. ACT 112: Negative or not required by law. Electronically signed by: Elvin Stephen M.D. 02/02/2021 7:50 PM Diagnostic Findings Chest x-ray as per my interpretation congestion
[2021-02-03] MEDS ORDERED: IBUPROFEN 200 MG TAB PO PRN (00:02)
[2021-02-03] MEDS ORDERED: BACLOFEN 10 MG TAB PO PRN (00:02)
[2021-02-03] MEDS ORDERED: POLYETHYLENE (MIRALAX) 17 GM PACK PO PRN (00:02)
[2021-02-03] MEDS ORDERED: LACTATED RINGER'S 1,000 ML IV ONE (00:27)
[2021-02-03] MEDS ORDERED: ALBUT/IPRATROP 3MG/0.5MG NEB 3 ML VIAL NEB PRN (00:27)
[2021-02-03] MEDS: KETOROLAC TROMETHAMINE 15 MG/ML VIAL IV PRN (00:54)
[2021-02-03] MEDS: MoRPHine SULFATE IR 15 MG TAB (IMMEDIATE RELEASE) PO PRN ×2 (05:43→17:46)
[2021-02-03] MEDS: PROMETHAZINE HCL 12.5 MG in SODIUM CHLORIDE 0.9% 50 ML IV PRN ×3 (06:02→19:54)
[2021-02-03 06:08] LABS: Basophils # (auto) 0.02 K/uL (0-0.2); Basophils % (auto) 0.2 %; Eosinophils # (auto) 0.09 K/uL (0-0.5); Hematocrit (blood only) 43.5 % (37-47); Hemoglobin 14.1 g/dL (12.0-16.0); Immature Granulocytes # (auto) 0.01 K/uL (0.00-0.02); Immature Granulocytes % (auto) 0.1 %; Lymphocytes # (auto) 2.93 K/uL (1.2-3.4); Mean Corpuscular Hemoglobin 29.9 pg (25-34); Mean Corpuscular Hgb Conc 32.4 g/dL (32-36); Mean Corpuscular Volume 92.2 fL (80-100); Mean Platelet Volume 10.6 fL (7.4-10.4); Monocytes # (auto) 0.59 K/uL (0.11-0.59); Monocytes % (auto) 6.9 %; Neutrophils # (auto) 4.97 K/uL (1.4-6.5); Neutrophils % (auto) 57.8 %; Platelet Count 214 K/uL (130-400); RDW Coefficient of Variation 14.7 % (11.5-14.5); Red Blood Count 4.72 M/uL (4.2-5.4); White Blood Count 8.61 K/uL (4.8-10.8)
[2021-02-03 06:37] LABS: BUN Creatinine Ratio 13.4 (10-20); Calcium 9.3 mg/dl (8.5-10.1); Creatinine Clr Calc Pharmacy 119.5 ml/min; Est GFR (African American) 101.9 ml/min; Est GFR (Non-African American) 87.9 ml/min; Potassium 3.7 mmol/L (3.5-5.1)
--- NOTE | 2021-02-03 08:05 | XRay Report ---
XR chest 1V portable CLINICAL HISTORY: low o2 COMPARISON STUDY: December 28, 2019 FINDINGS: No pneumothorax. No pleural effusion. Interval development of patchy reticular and airspace opacities throughout bilateral lungs. Cardiomediastinal silhouette is within normal limits in size. Pulmonary vasculature is obscured.. Osseous structures: unremarkable IMPRESSION: 1. Bilateral patchy mixed reticular and airspace opacities which could represent multifocal pneumoni a/Covid versus other etiology. ACT 112: Negative or not required by law. The above report was generated using voice recognition software. It may contain grammatical, syntax o r spelling errors. Electronically signed by: Maggie Franks DO 02/03/2021 8:03 AM
[2021-02-03] MEDS: NICOTINE 21 MG/24 HR TDSY TD SCH (08:37)
[2021-02-03] MEDS: DULoxetine HCL 30 MG CAP PO SCH (08:38)
[2021-02-03] MEDS: MoRPHine SULFATE CR 15 MG TABCR PO SCH ×3 (08:38→21:05)
[2021-02-03] MEDS: DULoxetine HCL 60 MG CAP PO SCH (08:38)
--- NOTE | 2021-02-03 10:30 | Consultation ---
Date of Consultation February 03, 2021 Assessment & Plan (1) Intractable low back pain: Dr. Martinez has reviewed clinical course as well as imaging. Patient is suffering from an acute flareup on top of her chronic lower back pain. There are no acute surgical indications. Recommend continue conservative treatment. She may benefit from physical therapy. Unfortunately she has a significant steroid allergy which causes delirium, therefore unable to use this.. May consider pain management consult again if pain is still uncontrolled. Recommend follow-up with her established pain management physician upon discharge. Ambulate ad karri. Supervising Physician Co-Signing Physician Notes Dr. Blue Martinez History of Present Illness Reason for Consultation: Worsening back pain Attending Physician: Michael Corrales MD History of Present Illness Is a 50-year-old female that we are seen in consultation regarding worsening lower back pain. She presented to the emergency room yesterday because of this. She has chronic lower back pain. She is on MS Contin 15 mg p.o. 3 times daily plus MSIR 15 mg twice daily plus Zanaflex in addition to Cymbalta. She reports this is managed by [facility] pain management. She has received injections in the past from Dr. Barr. Last being in June of this year which does provide short-term relief. She reports a few days ago she leaned forward to grab some baby wipes and had an increase in her pain. She states at that point time she is unable to move her right leg. This is since resolved. She currently denies radicular bilateral lower extremity pain, paresthesia, numbness. She reports sometimes she needs assistance for ambulation at home. Typically ambulates independently. Denies perineum numbness. Denies bowel or bladder dysfunction. We have also seen her in consultation about 4 weeks ago. At that point in time treatment recommendation was conservative in the form of physical therapy. Allergies Allergy/AdvReac Type Severity Reaction Status Date / Time gabapentin Allergy Severe anaphylaxis Verified 02/02/21 19:21 tramadol Allergy Severe ANAPHYLAXIS Verified 02/02/21 19:21 chlorpheniramine Allergy Intermediate SHORTNESS Verified 02/02/21 19:21 OF BREATH guaifenesin Allergy Intermediate SHORTNESS Verified 02/02/21 19:21 OF BREATH metoclopramide AdvReac Intermediate anxiety Verified 02/02/21 19:21 Home Medications Medication Instructions Recorded Confirmed Type furosemide 40 mg tablet (Lasix) 40 mg PO QAM PRN 03/17/18 02/02/21 History nitroglycerin 0.4 mg sublingual 0.4 mg SUBLINGUAL DIRECTED PRN 03/17/18 02/02/21 History tablet (Nitrostat) morphine 15 mg tablet,extended 15 mg PO TID 10/06/18 02/02/21 History release levothyroxine 125 mcg tablet 250 mcg PO QAM 12/28/19 02/02/21 History morphine 15 mg immediate release 15 mg PO TID PRN 12/28/19 02/02/21 History tablet aspirin 81 mg tablet,delayed 81 mg PO QAM 09/23/20 02/02/21 History release (Aspirin Low Dose) duloxetine 60 mg capsule,delayed 60 mg PO DAILY 09/24/20 02/02/21 History release metformin 500 mg tablet,extended 500 mg PO DAILY 09/24/20 02/02/21 History release 24 hr duloxetine 30 mg capsule,delayed 30 mg PO DAILY 11/15/20 02/02/21 History release polyethylene glycol 3350 17 17 g PO DAILY PRN 11/15/20 02/02/21 History gram/dose oral powder (Miralax) acetaminophen 500 mg tablet 1,000 mg PO Q6H PRN 11/16/20 02/02/21 History (Tylenol Extra Strength) ibuprofen 200 mg tablet 400 mg PO Q6H PRN 11/16/20 02/02/21 History tizanidine 2 mg tablet 2 mg PO Q6H PRN 11/16/20 02/02/21 History baclofen 10 mg tablet 10 mg PO BID PRN 01/06/21 02/02/21 History celecoxib 200 mg capsule 200 mg PO BID PRN 01/06/21 02/02/21 History Patient History Medical History Acute exacerbation of chronic low back pain Anxiety Atelectasis Back pain Bulging lumbar disc Small broad-based posterior disc bulge with a small right paracentral focal disc protrusion Cardiomyopathy 2014 - thought to be stress induced, reported normal dobutamine stress and echo after Chronic back pain Chronic pain syndrome Depression Fibromyalgia H/O traumatic brain injury Hypokalemia Hypothyroidism (Unknown) IBS (irritable bowel syndrome) Intractable back pain Intractable nausea and vomiting Migraines Opiate dependence Tobacco abuse Surgical History Bilateral tubal ligation (Unknown) section (Unknown) H/O colonoscopy "2006 path normal" H/O cystoscopy H/O esophagogastroduodenoscopy "2006 path normal" Hx of appendectomy Hx of cholecystectomy Hx of hysterectomy S/P lymph node biopsy "deep cervical inflammatory node 2007" Family History Other Diabetes Hypertension Thyroid disorder Social History Smoking Status: Current every day smoker Tobacco Type: Cigarettes Cigarettes Per Day: 10; Second Hand Exposure: Yes; Do You Dip or Chew Tobacco: No; Tobacco Cessation Education Requested by Patient: No Hx Alcohol Use: No Hx Substance Use: No Preferred Language: Tamazight Communication Ability: Effective Visual Impairment: Partially Limited Chlorine Cells Operator Required: No Beliefs That Will Affect Care: None marital status: Current Living Situation: Spouse and Family Feels Safe at Home: Yes Safety Concerns: Feels Safe At This Time Assistive Devices: Glasses and Walker Review of Systems Review of Systems: All systems reviewed & are unremarkable except as noted in HPI & below Physical Exam Physical Exam: She is sleeping. She is easily arousable. She is appropriate Alert and oriented x3 No acute distress She is tender diffusely throughout the midline lower lumbar spine as well as bilateral sacroiliac notches. No lacerations or ecchymosis noted. Motor testing is intact bilateral lower extremities Negative tension signs bilaterally. Results & Data ([facility]) Vital Signs (Past 12 Hours) Vital Signs Temp Pulse Resp BP Pulse Ox 02/03/21 08:53 36.4 C L 55 L 18 131/84 96 02/03/21 00:04 36.6 C 58 L 16 147/95 H 95 02/02/21 23:08 60 20 110/72 92 Diagnostic Findings [facility], [id number] CT Scan Report Patient: ALLAN FLORENCE AAdmit Date: 02/02/21MR#: [id number]: [id number] ID:[id number]: [address]B[facility] Date: 1970[facility] [place] [id number]: [id number]: EDSex: FRoom/Bed:Att Phy:Diagnosis: SEVERE BACK PAIN, VOMITINGPri Phy: Dajuan Bell, DOService Date: 02/02/21Fam Phy:Interpreting Phy: Elvin Stephen MDAdmit Phy: Ordering Phy: Tony Griffin M.D. cc: ~ CT SCAN OF THE LUMBAR SPINE WITHOUT IV CONTRAST CLINICAL HISTORY: Fall. Low back pain. COMPARISON STUDY: Lumbar spine CT dated 11/17/2020. CT and MRI of the lumbar spine dated 11/15/2020. TECHNIQUE: CT scan of the lumbar spine is performed from the lower thoracic spine to the sacrum. Images are reviewed in the axial, sagittal, and coronal planes. IV contrast was not administered for this examination. A dose lowering technique was utilized adhering to the principles of ALARA. CT DOSE: 689.55 mGycm FINDINGS: The skeletal structures are well mineralized. There is no evidence of fracture or malalignment involving the lumbar spine. Vertebral body height and alignment are maintained. The transverse and spinous processes appear intact. There is no spondylolysis. No lytic or blastic lesion is seen. The disc spaces are maintained. Posterior disc bulge eccentric to the right is again seen at L4- L5. There may be a small laterally extruded fragment seen on axial image #211. There is no CT evidence of high-grade central canal stenosis. The visualized sacrum and bony pelvis appear intact. The paraspinous soft tissues are within normal limits. IMPRESSION: 1. No osseous abnormality is identified involving the lumbar spine. 2. Degenerative disc disease at L4-L5 is similar to previous. ACT 112: Negative or not required by law. Electronically signed by: Elvin Stephen M.D. 02/02/2021 7:45 PM Dictated: 02/02/211937Transcribed: 02/02/211937
--- NOTE | 2021-02-03 15:56 | Hospitalist Progress Note ---
Date of Service February 03, 2021 Assessment & Plan (1) Intractable low back pain: Plan: Recurrent confinements for lumbar radiculopathy after traumatic injury from November 2020 Chronic pain/fibromyalgia on narcotics Analgesia Judicious narcotic use Orthopedics Spine consultation Re: Recurrent back pain - pt is not surgical candidate Pain Management consulted after orthopedic spine eval. Primary hyperparathyroidism -[place] [facility] [place] scheduled to see [facility] endocrinology next month Hx cardiomyopathy - as per records (EF 60 to 65%, TTE 2019), patient on the dry side on admission Anxiety/mood disorder, symptoms at baseline as per patient Hypothyroidism, euthyroid as of recent TSH Prediabetes, hemoglobin A1c of 5.09 November 2020 Ongoing tobacco abuse Nicotine patch DVT prophylaxis. SCDs RE possible procedural intervention Full code Patient's - Mr. Ayush Schneider, contact #[phone]. Admission and Anticipated Discharge Date Admission Date: February 02, 2021 Subjective Patient seen in follow-up of back pain Consulted orthopedic surgery, patient is not a surgical candidate Currently laying in bed, complains of back pain reports she was able to work with PT, able to ambulate to bathroom No bladder or bowel incontinence No fevers, chills, chest pain shortness of breath, abdominal pain nausea or vomiting We will further discuss with pain management Review of Systems Review of Systems: All systems reviewed & are unremarkable except as noted in Subjective Physical Exam Physical Exam: GENERAL: uncomfortable, obese F, no respiratory distress HEENT: NC/AT, EOMI, PERRL NECK : Supple, short neck, no tenderness CHEST : CTAB HEART : Bradycardic, no obvious murmurs ABDOMEN: Soft, obese, + bowel sounds,ND, nontender BACK : midline lower lumbar spine tenderness to palpation EXTREMITIES : Minimal LE swelling, no LE tenderness, moves LEs w/o difficulty SKIN: Normal color, warm NEUROLOGIC : Coherent, no facial asymmetry, speech fluent, moves extremities Results & Data Results & Data ([facility]) Vital Signs (Past 12 Hours) Vital Signs Temp Pulse Resp BP Pulse Ox 02/03/21 08:53 36.4 C L 55 L 18 131/84 96 Laboratory Results 02/03/21 02/03/21 02/02/21 Range/Units 05:27 05:27 21:33 WBC 8.61 (4.8-10.8) K/uL RBC 4.72 (4.2-5.4) M/uL Hgb 14.1 (12.0-16.0) g/dL Hct 43.5 (37-47) % MCV 92.2 (80-100) fL MCH 29.9 (25-34) pg MCHC 32.4 (32-36) g/dL RDW Std Deviation 50.0 H (36.4-46.3) fL RDW Coeff of Roro 14.7 H (11.5-14.5) % Plt Count 214 (130-400) K/uL MPV 10.6 H (7.4-10.4) fL Immature Gran % (Auto) 0.1 % Neut % (Auto) 57.8 % Lymph % (Auto) 34.0 % Randolph % (Auto) 6.9 % Eos % (Auto) 1.0 % Baso % (Auto) 0.2 % Neut # (Auto) 4.97 (1.4-6.5) K/uL Lymph # (Auto) 2.93 (1.2-3.4) K/uL Randolph # (Auto) 0.59 (0.11-0.59) K/uL Eos # (Auto) 0.09 (0-0.5) K/uL Baso # (Auto) 0.02 (0-0.2) K/uL Immature Gran # (Auto) 0.01 (0.00-0.02) K/uL Sodium 143 (136-145) mmol/L Potassium 3.7 (3.5-5.1) mmol/L Chloride 112 H (98-107) mmol/L Carbon Dioxide 30 (21-32) mmol/L Anion Gap 1.0 L (3-11) BUN 11 (7-18) mg/dl Creatinine 0.79 (0.6-1.2) mg/dl Est Cr Clr Drug Dosing 119.5 ml/min Est GFR ( Amer) 101.9 ml/min Est GFR (Non-Af Amer) 87.9 ml/min BUN/Creatinine Ratio 13.4 (10-20) Glucose 79 (70-99) mg/dl Calcium 9.3 (8.5-10.1) mg/dl Total Bilirubin (0.2-1) mg/dl AST (15-37) U/L ALT (12-78) U/L Alkaline Phosphatase (45-117) U/L NT-Pro-B Natriuret Pep (0-450) pg/ml Total Protein (6.4-8.2) gm/dl Albumin (3.4-5.0) gm/dl Globulin (2.5-4.0) gm/dl Albumin/Globulin Ratio (0.9-2) COVID-19 Eval Order SARS-CoV-2 (PCR) NEGATIVE (Negative) 02/02/21 02/02/21 02/02/21 Range/Units 21:33 17:12 17:12 WBC (4.8-10.8) K/uL RBC (4.2-5.4) M/uL Hgb (12.0-16.0) g/dL Hct (37-47) % MCV (80-100) fL MCH (25-34) pg MCHC (32-36) g/dL RDW Std Deviation (36.4-46.3) fL RDW Coeff of Roro (11.5-14.5) % Plt Count (130-400) K/uL MPV (7.4-10.4) fL Immature Gran % (Auto) % Neut % (Auto) % Lymph % (Auto) % Randolph % (Auto) % Eos % (Auto) % Baso % (Auto) % Neut # (Auto) (1.4-6.5) K/uL Lymph # (Auto) (1.2-3.4) K/uL Randolph # (Auto) (0.11-0.59) K/uL Eos # (Auto) (0-0.5) K/uL Baso # (Auto) (0-0.2) K/uL Immature Gran # (Auto) (0.00-0.02) K/uL Sodium 140 (136-145) mmol/L Potassium 3.7 (3.5-5.1) mmol/L Chloride 107 (98-107) mmol/L Carbon Dioxide 28 (21-32) mmol/L Anion Gap 5.0 (3-11) BUN 11 (7-18) mg/dl Creatinine 1.07 (0.6-1.2) mg/dl Est Cr Clr Drug Dosing 88.0 ml/min Est GFR ( Amer) 70.6 ml/min Est GFR (Non-Af Amer) 60.9 ml/min BUN/Creatinine Ratio 10.7 (10-20) Glucose 99 (70-99) mg/dl Calcium 10.3 H (8.5-10.1) mg/dl Total Bilirubin 0.5 (0.2-1) mg/dl AST 13 L (15-37) U/L ALT 19 (12-78) U/L Alkaline Phosphatase 134 H (45-117) U/L NT-Pro-B Natriuret Pep 93 (0-450) pg/ml Total Protein 8.6 H (6.4-8.2) gm/dl Albumin 4.0 (3.4-5.0) gm/dl Globulin 4.6 H (2.5-4.0) gm/dl Albumin/Globulin Ratio 0.9 (0.9-2) COVID-19 Eval Order Covid19 at [facility] SARS-CoV-2 (PCR) (Negative) 02/02/21 Range/Units 17:12 WBC 10.45 (4.8-10.8) K/uL RBC 5.41 H (4.2-5.4) M/uL Hgb 16.5 H (12.0-16.0) g/dL Hct 49.0 H (37-47) % MCV 90.6 (80-100) fL MCH 30.5 (25-34) pg MCHC 33.7 (32-36) g/dL RDW Std Deviation 48.4 H (36.4-46.3) fL RDW Coeff of Roro 14.6 H (11.5-14.5) % Plt Count 261 (130-400) K/uL MPV 11.1 H (7.4-10.4) fL Immature Gran % (Auto) 0.1 % Neut % (Auto) 70.0 % Lymph % (Auto) 24.3 % Randolph % (Auto) 4.9 % Eos % (Auto) 0.5 % Baso % (Auto) 0.2 % Neut # (Auto) 7.32 H (1.4-6.5) K/uL Lymph # (Auto) 2.54 (1.2-3.4) K/uL Randolph # (Auto) 0.51 (0.11-0.59) K/uL Eos # (Auto) 0.05 (0-0.5) K/uL Baso # (Auto) 0.02 (0-0.2) K/uL Immature Gran # (Auto) 0.01 (0.00-0.02) K/uL Sodium (136-145) mmol/L Potassium (3.5-5.1) mmol/L Chloride (98-107) mmol/L Carbon Dioxide (21-32) mmol/L Anion Gap (3-11) BUN (7-18) mg/dl Creatinine (0.6-1.2) mg/dl Est Cr Clr Drug Dosing ml/min Est GFR ( Amer) ml/min Est GFR (Non-Af Amer) ml/min BUN/Creatinine Ratio (10-20) Glucose (70-99) mg/dl Calcium (8.5-10.1) mg/dl Total Bilirubin (0.2-1) mg/dl AST (15-37) U/L ALT (12-78) U/L Alkaline Phosphatase (45-117) U/L NT-Pro-B Natriuret Pep (0-450) pg/ml Total Protein (6.4-8.2) gm/dl Albumin (3.4-5.0) gm/dl Globulin (2.5-4.0) gm/dl Albumin/Globulin Ratio (0.9-2) COVID-19 Eval Order SARS-CoV-2 (PCR) (Negative) Medications Administered Current Inpatient Medications Albuterol (Albut/Ipratrop 3mg/0.5mg Neb 3 Ml Vial) 3 ml NEB Q2R PRN PRN Reason: Wheezing Stop: 03/05/21 00:26 Baclofen (Baclofen 10 Mg Tab) 10 mg PO BID PRN PRN Reason: Muscle Spasm Stop: 03/05/21 00:01 Duloxetine HCl (Duloxetine Hcl 60 Mg Cap) 60 mg PO DAILY ANDREW Stop: 03/05/21 08:59 Last Admin: 02/03/21 08:38 Dose: 60 mg Documented by: Duloxetine HCl (Duloxetine Hcl 30 Mg Cap) 30 mg PO DAILY ANDREW Stop: 03/05/21 08:59 Last Admin: 02/03/21 08:38 Dose: 30 mg Documented by: Promethazine HCl 12.5 mg/ (Sodium Chloride) 50.5 mls @ 202 mls/hr IV Q6H PRN PRN Reason: Nausea And Vomiting Stop: 03/05/21 00:01 Last Infusion: 02/03/21 13:25 Dose: Infused Documented by: Lactated Ringer's (Lr) 1,000 mls @ 60 mls/hr IV .[id number] Stop: 02/03/21 17:06 Last Admin: 02/03/21 00:55 Dose: 60 mls/hr Documented by: Ibuprofen (Ibuprofen 200 Mg Tab) 400 mg PO Q6H PRN PRN Reason: Pain Stop: 03/05/21 00:01 Ketorolac Tromethamine (Ketorolac Tromethamine 15 Mg/Ml Vial) 15 mg IV Q6H PRN PRN Reason: Pain Stop: 02/08/21 00:01 Last Admin: 02/03/21 00:54 Dose: 15 mg Documented by: Lidocaine (Lidocaine 5% 1 Patch) 1 patch TD Q24H [facility] Stop: 03/05/21 21:29 Miscellaneous (Remove Nicoderm Patch) 1 ea N/A DAILY@0859 [facility] Stop: 03/05/21 08:58 Last Admin: 02/03/21 08:38 Dose: Not Given Documented by: Miscellaneous (Remove Lidoderm Patch) 1 ea N/A Q24H [facility] Stop: 03/05/21 09:29 Last Admin: 02/03/21 08:38 Dose: 1 ea Documented by: Morphine Sulfate (Morphine Sulfate Cr 15 Mg Tabcr) 15 mg PO TID [facility] Stop: 02/17/21 08:59 Last Admin: 02/03/21 13:10 Dose: 15 mg Documented by: Morphine Sulfate (Morphine Sulfate Ir 15 Mg Tab (Immediate Release)) 15 mg PO QID PRN PRN Reason: Pain Stop: 02/17/21 00:01 Last Admin: 02/03/21 05:43 Dose: 15 mg Documented by: Nicotine (Nicotine 21 Mg/24 Hr Tdsy) 21 mg TD QAM [facility] Stop: 03/05/21 08:59 Last Admin: 02/03/21 08:37 Dose: 21 mg Documented by: Polyethylene Glycol (Polyethylene (Miralax) 17 Gm Pack) 17 gm PO DAILY PRN PRN Reason: Constipation Stop: 03/05/21 00:01
[2021-02-03] MEDS: LIDOCAINE 5% 1 PATCH TD SCH (21:05)
[2021-02-04] MEDS: MoRPHine SULFATE IR 15 MG TAB (IMMEDIATE RELEASE) PO PRN ×3 (03:14→17:58)
[2021-02-04 06:09] LABS: Hematocrit (blood only) 44.2 % (37-47); Hemoglobin 14.4 g/dL (12.0-16.0); Mean Corpuscular Hemoglobin 30.2 pg (25-34); Mean Corpuscular Hgb Conc 32.6 g/dL (32-36); Mean Corpuscular Volume 92.7 fL (80-100); Mean Platelet Volume 10.8 fL (7.4-10.4); Platelet Count 227 K/uL (130-400); RDW Coefficient of Variation 14.5 % (11.5-14.5); RDW Standard Deviation 49.6 fL (36.4-46.3); Red Blood Count 4.77 M/uL (4.2-5.4)
[2021-02-04 06:39] LABS: Calcium 8.7 mg/dl (8.5-10.1); Creatinine Clr Calc Pharmacy 103.8 ml/min; Est GFR (African American) 85.9 ml/min; Est GFR (Non-African American) 74.1 ml/min; Magnesium 2.3 mg/dl (1.8-2.4); Phosphorus 2.5 mg/dl (2.5-4.9); Potassium 3.6 mmol/L (3.5-5.1)
[2021-02-04] MEDS: DULoxetine HCL 30 MG CAP PO SCH (07:35)
[2021-02-04] MEDS: PROMETHAZINE HCL 12.5 MG in SODIUM CHLORIDE 0.9% 50 ML IV PRN ×2 (07:35→21:46)
[2021-02-04] MEDS: DULoxetine HCL 60 MG CAP PO SCH (07:35)
[2021-02-04] MEDS: NICOTINE 21 MG/24 HR TDSY TD SCH (07:35)
[2021-02-04] MEDS: MoRPHine SULFATE CR 15 MG TABCR PO SCH ×3 (07:36→22:51)
--- NOTE | 2021-02-04 08:57 | Pain Management Consultation ---
Date of Consultation February 04, 2021 Assessment & Plan (1) Intractable low back pain: (2) Chronic, continuous use of opioids: No changes since her last admission one month ago. Continue chronic opioid schedule of MsContin 15mg TID, MS IR 15mg BID, Cymbalta 90 mg daily, and Baclofen 10mg twice daily. I would not recommend any changes. No interventional procedures to offer the patient at this time. I would recommend physical therapy. Thank you for the consultation. Will sign off on the patient. History of Present Illness Attending Physician: Michael Corrales MD History of Present Illness This is a 50-year-old female that returns for a fourth admission regarding low back pain. In November she fell off of her sister's porch and had been having acute on chronic back pain. A few days ago she was picking up a pack of baby wipes off of the floor and felt a sudden sharp pain in the low back and into the right leg. She felt like the leg stiffened up. The leg is no longer stiffened up. The pain in the low back and into the right lateral leg is her chronic pain but feels slightly worse in severity. She is chronically on MS Contin 15 mg 3 times daily and MSIR 15 mg twice daily for pain relief. She does also have take Cymbalta 90 mg daily and Baclofen 10mg twice daily if needed. She is nauseated and reports a history of vomiting so she was having difficulty keeping her oral medications down. She attributes the nausea due to the pain. She is receiving IV Phenergan. Still reports nausea. No episodes of vomiting. Pain is ranging from 7-9/10. She does follow with Dr. Barr and has received epidural steroid injections in the past. She is not a surgical candidate. Patient states that she is unable to take oral steroids due to delirium. There is no bowel/bladder incontinence, saddle anesthesia, foot drop, or leg weakness. Pain Assessment Full Body Front + Back: 1. 2. 3. Allergies Allergy/AdvReac Type Severity Reaction Status Date / Time gabapentin Allergy Severe anaphylaxis Verified 02/02/21 19:21 tramadol Allergy Severe ANAPHYLAXIS Verified 02/02/21 19:21 chlorpheniramine Allergy Intermediate SHORTNESS Verified 02/02/21 19:21 OF BREATH guaifenesin Allergy Intermediate SHORTNESS Verified 02/02/21 19:21 OF BREATH metoclopramide AdvReac Intermediate anxiety Verified 02/02/21 19:21 Home Medications Medication Instructions Recorded Confirmed Type furosemide 40 mg tablet (Lasix) 40 mg PO QAM PRN 03/17/18 02/02/21 History nitroglycerin 0.4 mg sublingual 0.4 mg SUBLINGUAL DIRECTED PRN 03/17/18 02/02/21 History tablet (Nitrostat) morphine 15 mg tablet,extended 15 mg PO TID 10/06/18 02/02/21 History release levothyroxine 125 mcg tablet 250 mcg PO QAM 12/28/19 02/02/21 History morphine 15 mg immediate release 15 mg PO TID PRN 12/28/19 02/02/21 History tablet aspirin 81 mg tablet,delayed 81 mg PO QAM 09/23/20 02/02/21 History release (Aspirin Low Dose) duloxetine 60 mg capsule,delayed 60 mg PO DAILY 09/24/20 02/02/21 History release metformin 500 mg tablet,extended 500 mg PO DAILY 09/24/20 02/02/21 History release 24 hr duloxetine 30 mg capsule,delayed 30 mg PO DAILY 11/15/20 02/02/21 History release polyethylene glycol 3350 17 17 g PO DAILY PRN 11/15/20 02/02/21 History gram/dose oral powder (Miralax) acetaminophen 500 mg tablet 1,000 mg PO Q6H PRN 11/16/20 02/02/21 History (Tylenol Extra Strength) ibuprofen 200 mg tablet 400 mg PO Q6H PRN 11/16/20 02/02/21 History tizanidine 2 mg tablet 2 mg PO Q6H PRN 11/16/20 02/02/21 History baclofen 10 mg tablet 10 mg PO BID PRN 01/06/21 02/02/21 History celecoxib 200 mg capsule 200 mg PO BID PRN 01/06/21 02/02/21 History Patient History Medical History (Updated 02/04/21 @ 09:04 by Talisha Hand PA-C) Acute exacerbation of chronic low back pain Anxiety Atelectasis Back pain Bulging lumbar disc Small broad-based posterior disc bulge with a small right paracentral focal disc protrusion Cardiomyopathy 2014 - thought to be stress induced, reported normal dobutamine stress and echo after Chronic back pain Chronic pain syndrome Depression Fibromyalgia H/O traumatic brain injury Hypokalemia Hypothyroidism (Unknown) IBS (irritable bowel syndrome) Intractable back pain Intractable nausea and vomiting Migraines Opiate dependence Tobacco abuse Surgical History Bilateral tubal ligation (Unknown) section (Unknown) H/O colonoscopy "2006 path normal" H/O cystoscopy H/O esophagogastroduodenoscopy "2006 path normal" Hx of appendectomy Hx of cholecystectomy Hx of hysterectomy S/P lymph node biopsy "deep cervical inflammatory node 2007" Family History Other Diabetes Hypertension Thyroid disorder Social History Smoking Status: Current every day smoker Tobacco Type: Cigarettes Cigarettes Per Day: 10; Second Hand Exposure: Yes; Do You Dip or Chew Tobacco: No; Tobacco Cessation Education Requested by Patient: No Hx Alcohol Use: No Hx Substance Use: No Preferred Language: Omani Communication Ability: Effective Visual Impairment: Partially Limited Marketing Communications Assistant Required: No Beliefs That Will Affect Care: None marital status: Current Living Situation: Spouse and Family Feels Safe at Home: Yes Safety Concerns: Feels Safe At This Time Assistive Devices: None Physical Exam Physical Exam: GENERAL: This is a 50 year old female. Does not appear in acute distress. Able to move around hospital bed well. HEAD/FACE: Normocephalic and atraumatic. EYES: No drainage or conjunctival injection. ENT: Nose without bleeding or discharge. Oral mucosa moist. NECK: Full ROM without apparent pain. No swelling or masses noted. RESPIRATORY: Patient with unlabored breathing. No signs of respiratory distress. CHEST/AXILLA: Chest movement symmetrical. No deformities noted. ABDOMEN/GI: No distension BACK: No focal lumbar tenderness. No SI joint tenderness. Moderate tenderness along the right gluteal musculature without trigger points noted. SKIN: [place], warm and dry. No rash noted. MS/EXTREMITY: No swelling, no deformities. Moving extremities appropriately. 5/5 strength of lower extremities. NEURO: Alert and appears oriented. Speech is fluent. Cranial Nerves are grossly intact. PSYCH: Alert, pleasant, affect is calm Results ([facility]) Diagnostic Review MRI Findings: LUMBAR SPINE MRI HISTORY: Fall. lower back pain TECHNIQUE: Multiplanar multisequence MRI of the lumbar spine was performed without the use of contrast. COMPARISON: Lumbar spine CT 11/15/2020. FINDINGS: For the purpose of the report the L5-S1 disc space will be located on axial image 23 of 26. No fracture or subluxation. The conus terminates at the L1 level. Paravertebral soft tissues are unremarkable. Mild disc space narrowing and disc desiccation at L4-L5. The remaining disc spaces are preserved. L1-L2: No significant central canal or neural foraminal narrowing. L2-L3: No significant central canal or neural foraminal narrowing. L3-L4: No significant central canal or neural foraminal narrowing. L4-L5: Small broad-based posterior disc bulge with a small right paracentral focal disc protrusion. This abuts but does not displace the transiting right L5 nerve root. There is also mild bilateral neural foraminal narrowing at this level. L5-S1: No significant central canal or neural foraminal narrowing. IMPRESSION: 1. No fracture or subluxation within the lumbar spine. 2. Small right paracentral focal disc protrusion at L4-5 which abuts but does not displace the transiting right L5 nerve root. ACT 112: Negative or not required by law. Electronically signed by: Zheng Rivera M.D. 11/16/2020 7:[address] Findings: CT SCAN OF THE LUMBAR SPINE WITHOUT IV CONTRAST CLINICAL HISTORY: Fall. Low back pain. COMPARISON STUDY: Lumbar spine CT dated 11/17/2020. CT and MRI of the lumbar spine dated 11/15/2020. TECHNIQUE: CT scan of the lumbar spine is performed from the lower thoracic spine to the sacrum. Images are reviewed in the axial, sagittal, and coronal planes. IV contrast was not administered for this examination. A dose lowering technique was utilized adhering to the principles of ALARA. CT DOSE: 689.55 mGycm FINDINGS: The skeletal structures are well mineralized. There is no evidence of fracture or malalignment involving the lumbar spine. Vertebral body height and alignment are maintained. The transverse and spinous processes appear intact. There is no spondylolysis. No lytic or blastic lesion is seen. The disc spaces are maintained. Posterior disc bulge eccentric to the right is again seen at L4- L5. There may be a small laterally extruded fragment seen on axial image #211. T here is no CT evidence of high-grade central canal stenosis. The visualized sacrum and bony pelvis appear intact. The paraspinous soft tissues are within normal limits. IMPRESSION: 1. No osseous abnormality is identified involving the lumbar spine. 2. Degenerative disc disease at L4-L5 is similar to previous. ACT 112: Negative or not required by law. Electronically signed by: Elvin Stephen M.D. 02/02/2021 7:45 PM
[2021-02-04] MEDS ORDERED: LIDOCAINE 5% 1 PATCH TD SCH (09:00)
[2021-02-04] MEDS ORDERED: POTASSIUM CHLORIDE CRTAB 20 MEQ TABCR PO STA (13:41)
--- NOTE | 2021-02-04 13:42 | Hospitalist Progress Note ---
Date of Service February 04, 2021 Assessment & Plan (1) Intractable low back pain: Plan: Recurrent confinements for lumbar radiculopathy after traumatic injury from November 2020 Chronic pain/fibromyalgia on narcotics Analgesia Judicious narcotic use Orthopedics Spine consultation Re: Recurrent back pain - pt is not surgical candidate Pain Management consulted after orthopedic spine eval. - no change in meds and no intervention at this time either Primary hyperparathyroidism -patient follows [place] [facility] [place]; scheduled [place] [facility] [place] Hx cardiomyopathy - as per records (EF 60 to 65%, TTE 2019), patient on the dry side on admission Anxiety/mood disorder, symptoms at baseline as per patient Hypothyroidism, euthyroid as of recent TSH Prediabetes, hemoglobin A1c of 5.09 November 2020 Ongoing tobacco abuse Nicotine patch DVT prophylaxis. SCDs, heparin subq Full code Patient's - Mr. Ayush Schneider, contact #[phone]. Admission and Anticipated Discharge Date Admission Date: February 02, 2021 Subjective Patient seen in follow-up of back pain Consulted orthopedic surgery, patient is not a surgical candidate Currently sitting up in bed, complains of back pain and nausea reports she was able to work with PT, able to ambulate to bathroom No bladder or bowel incontinence No fevers, chills, chest pain shortness of breath, abdominal pain nausea or vomiting Consulted pain management - no change in meds Review of Systems Review of Systems: All systems reviewed & are unremarkable except as noted in Subjective Physical Exam Physical Exam: GENERAL: uncomfortable, obese F, no respiratory distress HEENT: NC/AT, EOMI, PERRL NECK : Supple, short neck, no tenderness CHEST : CTAB HEART : Bradycardic HR 59, no obvious murmurs ABDOMEN: Soft, obese, + bowel sounds,ND, nontender BACK : midline lower lumbar spine tenderness to palpation EXTREMITIES : Minimal LE swelling, no LE tenderness, moves LEs w/o difficulty SKIN: Normal color, warm NEUROLOGIC : Coherent, no facial asymmetry, speech fluent, moves extremities Results & Data Results & Data ([facility] [place]) Vital Signs (Past 12 Hours) Vital Signs Temp Pulse Resp BP Pulse Ox 02/04/21 07:19 36.8 C 59 L 16 144/93 H 91 Laboratory Results 02/04/21 02/04/21 Range/Units 05:28 05:28 WBC 7.40 (4.8-10.8) K/uL RBC 4.77 (4.2-5.4) M/uL Hgb 14.4 (12.0-16.0) g/dL Hct 44.2 (37-47) % MCV 92.7 (80-100) fL MCH 30.2 (25-34) pg MCHC 32.6 (32-36) g/dL RDW Std Deviation 49.6 H (36.4-46.3) fL RDW Coeff of Roro 14.5 (11.5-14.5) % Plt Count 227 (130-400) K/uL MPV 10.8 H (7.4-10.4) fL Sodium 142 (136-145) mmol/L Potassium 3.6 (3.5-5.1) mmol/L Chloride 112 H (98-107) mmol/L Carbon Dioxide 31 (21-32) mmol/L Anion Gap -1.0 L (3-11) BUN 13 (7-18) mg/dl Creatinine 0.91 (0.6-1.2) mg/dl Est Cr Clr Drug Dosing 103.8 ml/min Est GFR ( Amer) 85.9 ml/min Est GFR (Non-Af Amer) 74.1 ml/min BUN/Creatinine Ratio 14.0 (10-20) Glucose 82 (70-99) mg/dl Calcium 8.7 (8.5-10.1) mg/dl Phosphorus 2.5 (2.5-4.9) mg/dl Magnesium 2.3 (1.8-2.4) mg/dl Medications Administered Current Inpatient Medications Albuterol (Albut/Ipratrop 3mg/0.5mg Neb 3 Ml Vial) 3 ml NEB Q2R PRN PRN Reason: Wheezing Stop: 03/05/21 00:26 Baclofen (Baclofen 10 Mg Tab) 10 mg PO BID PRN PRN Reason: Muscle Spasm Stop: 03/05/21 00:01 Duloxetine HCl (Duloxetine Hcl 60 Mg Cap) 60 mg PO DAILY ANDREW Stop: 03/05/21 08:59 Last Admin: 02/04/21 07:35 Dose: 60 mg Documented by: Duloxetine HCl (Duloxetine Hcl 30 Mg Cap) 30 mg PO DAILY ANDREW Stop: 03/05/21 08:59 Last Admin: 02/04/21 07:35 Dose: 30 mg Documented by: Promethazine HCl 12.5 mg/ (Sodium Chloride) 50.5 mls @ 202 mls/hr IV Q6H PRN PRN Reason: Nausea And Vomiting Stop: 03/05/21 00:01 Last Infusion: 02/04/21 07:50 Dose: Infused Documented by: Ibuprofen (Ibuprofen 200 Mg Tab) 400 mg PO Q6H PRN PRN Reason: Pain Stop: 03/05/21 00:01 Ketorolac Tromethamine (Ketorolac Tromethamine 15 Mg/Ml Vial) 15 mg IV Q6H PRN PRN Reason: Pain Stop: 02/08/21 00:01 Last Admin: 02/03/21 00:54 Dose: 15 mg Documented by: Lidocaine (Lidocaine 5% 1 Patch) [address] [facility] Stop: 03/05/21 21:29 Last Admin: 02/03/21 21:05 Dose: Not Given Documented by: Miscellaneous (Remove Nicoderm Patch) 1 ea N/A DAILY@0859 [facility] Stop: 03/05/21 08:58 Last Admin: 02/04/21 07:36 Dose: 1 ea Documented by: Miscellaneous (Remove Lidoderm Patch) 1 ea N/A Q24H [facility] Stop: 03/05/21 09:29 Last Admin: 02/04/21 08:13 Dose: 1 ea Documented by: Morphine Sulfate (Morphine Sulfate Cr 15 Mg Tabcr) [address] [facility] Stop: 02/17/21 08:59 Last Admin: 02/04/21 07:36 Dose: 15 mg Documented by: Morphine Sulfate (Morphine Sulfate Ir 15 Mg Tab (Immediate Release)) 15 mg PO QID PRN PRN Reason: Pain Stop: 02/17/21 00:01 Last Admin: 02/04/21 12:14 Dose: 15 mg Documented by: Nicotine (Nicotine 21 Mg/24 Hr Tdsy) [address] [facility] Stop: 03/05/21 08:59 Last Admin: 02/04/21 07:35 Dose: 21 mg Documented by: Polyethylene Glycol (Polyethylene (Miralax) 17 Gm Pack) 17 gm PO DAILY PRN PRN Reason: Constipation Stop: 03/05/21 00:01
[2021-02-04] MEDS ORDERED: ONDANSETRON INJ 2 MG/ML 2 ML VIAL IV PRN (15:08)
[2021-02-04] MEDS ORDERED: ONDANSETRON 2 MG OD TAB PO PRN (15:12)
[2021-02-04] MEDS ORDERED: MoRPHine SULFATE 2 MG/ML CARP IV PRN (15:17)
[2021-02-04] MEDS: LIDOCAINE 5% 1 PATCH TD SCH (20:05)
[2021-02-04] MEDS: KETOROLAC TROMETHAMINE 15 MG/ML VIAL IV PRN (20:05)
[2021-02-04] MEDS: HEPARIN SOD 5,000 UNIT/0.5 ML VIAL SQ SCH (20:10)
[2021-02-05] MEDS: MoRPHine SULFATE IR 15 MG TAB (IMMEDIATE RELEASE) PO PRN ×2 (02:15→12:39)
[2021-02-05] MEDS: KETOROLAC TROMETHAMINE 15 MG/ML VIAL IV PRN (05:04)
[2021-02-05 05:26] LABS: Hemoglobin 14.9 g/dL (12.0-16.0); Mean Corpuscular Hemoglobin 29.9 pg (25-34); Mean Corpuscular Hgb Conc 32.4 g/dL (32-36); Mean Corpuscular Volume 92.2 fL (80-100); Mean Platelet Volume 10.7 fL (7.4-10.4); Platelet Count 232 K/uL (130-400); RDW Standard Deviation 47.1 fL (36.4-46.3); Red Blood Count 4.99 M/uL (4.2-5.4); White Blood Count 9.72 K/uL (4.8-10.8)
[2021-02-05 06:01] LABS: BUN Creatinine Ratio 10.4 (10-20); Calcium 9.1 mg/dl (8.5-10.1); Creatinine Clr Calc Pharmacy 104.9 ml/min; Est GFR (Non-African American) 75.1 ml/min; Magnesium 2.4 mg/dl (1.8-2.4); Phosphorus 2.5 mg/dl (2.5-4.9); Potassium 3.7 mmol/L (3.5-5.1)
[2021-02-05] MEDS: NICOTINE 21 MG/24 HR TDSY TD SCH (08:44)
[2021-02-05] MEDS: MoRPHine SULFATE CR 15 MG TABCR PO SCH ×2 (08:44→14:41)
[2021-02-05] MEDS: DULoxetine HCL 60 MG CAP PO SCH (08:44)
[2021-02-05] MEDS: DULoxetine HCL 30 MG CAP PO SCH (08:44)
[2021-02-05] MEDS: HEPARIN SOD 5,000 UNIT/0.5 ML VIAL SQ SCH (08:45)
--- NOTE | 2021-02-05 16:01 | Hospitalist Progress Note ---
Date of Service February 05, 2021 Assessment & Plan (1) Intractable low back pain: Plan: Recurrent confinements for lumbar radiculopathy after traumatic injury from November 2020 Chronic pain/fibromyalgia on narcotics Analgesia Judicious narcotic use Orthopedics Spine consultation Re: Recurrent back pain - pt is not surgical candidate Pain Management consulted after orthopedic spine eval. - no change in meds and no intervention at this time either Patient feels better, pain is controlled, nausea has resolved She feels she can manage at home Orthopedics and pain management both recommend PT, patient feels that she could benefit from more PT as well, Rx for outpatient PT eval and treatment provided on discharge She will also follow-up with her PCP and pain clinic as outpatient Primary hyperparathyroidism -patient follows with [facility] [place] Nephrology; scheduled to see [facility] endocrinology next month Hx cardiomyopathy - as per records (EF 60 to 65%, TTE 2019), patient on the dry side on admission Anxiety/mood disorder, symptoms at baseline as per patient Hypothyroidism, euthyroid as of recent TSH Prediabetes, hemoglobin A1c of 5.09 November 2020 Ongoing tobacco abuse Nicotine patch DVT prophylaxis. SCDs, heparin subq Full code Patient's - Mr. Ayush Schneider, contact #[phone]. Admission and Anticipated Discharge Date Admission Date: February 04, 2021 Subjective Patient seen in follow-up of back pain Consulted orthopedic surgery, patient is not a surgical candidate Currently sitting up in chair, back pain seems improved, nausea also improved Patient reports she did not need any antiemetics today, and I had a bit of food as well She was able to work with PT, able to ambulate to bathroom/ hallway No bladder or bowel incontinence No fevers, chills, chest pain shortness of breath, abdominal pain nausea or vomiting Consulted pain management - no change in meds Patient says that pain is tolerable and she feels she can be discharged home. She will follow up with PCP and will have her help her at home as need ed. Prescription for PT eval and treatment as outpatient also provided on discharge. Review of Systems Review of Systems: All systems reviewed & are unremarkable except as noted in Subjective Physical Exam Physical Exam: GENERAL: obese F, pleasant, in no respiratory distress HEENT: NC/AT, EOMI, PERRL NECK : Supple, short neck, no tenderness CHEST : CTAB HEART : Bradycardic HR 57, no obvious murmurs ABDOMEN: Soft, obese, + bowel sounds,ND, nontender BACK : midline lower lumbar spine tenderness to palpation (improved) EXTREMITIES : Minimal LE swelling, no LE tenderness, moves LEs w/o difficulty SKIN: Normal color, warm NEUROLOGIC : Coherent, no facial asymmetry, speech fluent, moves extremities Results & Data Results & Data ([facility]) Vital Signs (Past 12 Hours) Vital Signs Temp Pulse Resp BP Pulse Ox 02/05/21 07:19 36.6 C 57 L 16 152/95 H 91 Laboratory Results 02/05/21 02/05/21 Range/Units 05:02 05:02 WBC 9.72 (4.8-10.8) K/uL RBC 4.99 (4.2-5.4) M/uL Hgb 14.9 (12.0-16.0) g/dL Hct 46.0 (37-47) % MCV 92.2 (80-100) fL MCH 29.9 (25-34) pg MCHC 32.4 (32-36) g/dL RDW Std Deviation 47.1 H (36.4-46.3) fL RDW Coeff of Roro 14.0 (11.5-14.5) % Plt Count 232 (130-400) K/uL MPV 10.7 H (7.4-10.4) fL Sodium 141 (136-145) mmol/L Potassium 3.7 (3.5-5.1) mmol/L Chloride 111 H (98-107) mmol/L Carbon Dioxide 31 (21-32) mmol/L Anion Gap -1.0 L (3-11) BUN 9 (7-18) mg/dl Creatinine 0.90 (0.6-1.2) mg/dl Est Cr Clr Drug Dosing 104.9 ml/min Est GFR ( Amer) 87.0 ml/min Est GFR (Non-Af Amer) 75.1 ml/min BUN/Creatinine Ratio 10.4 (10-20) Glucose 91 (70-99) mg/dl Calcium 9.1 (8.5-10.1) mg/dl Phosphorus 2.5 (2.5-4.9) mg/dl Magnesium 2.4 (1.8-2.4) mg/dl Specimen Hemolysis Medications Administered Current Inpatient Medications Albuterol (Albut/Ipratrop 3mg/0.5mg Neb 3 Ml Vial) 3 ml NEB Q2R PRN PRN Reason: Wheezing Stop: 03/05/21 00:26 Baclofen (Baclofen 10 Mg Tab) 10 mg PO BID PRN PRN Reason: Muscle Spasm Stop: 03/05/21 00:01 Duloxetine HCl (Duloxetine Hcl 60 Mg Cap) 60 mg PO DAILY [facility] Stop: 03/05/21 08:59 Last Admin: 02/05/21 08:44 Dose: 60 mg Documented by: Duloxetine HCl (Duloxetine Hcl 30 Mg Cap) 30 mg PO DAILY [facility] Stop: 03/05/21 08:59 Last Admin: 02/05/21 08:44 Dose: 30 mg Documented by: Heparin Sodium (Porcine) (Heparin Sod 5,000 Unit/0.5 Ml Vial) 5,000 units SQ Q12 [facility] Stop: 03/06/21 20:59 Last Admin: 02/05/21 08:45 Dose: 5,000 units Documented by: Promethazine HCl 12.5 mg/ (Sodium Chloride) 50.5 mls @ 202 mls/hr IV Q6H PRN PRN Reason: Nausea And Vomiting Stop: 03/05/21 00:01 Last Infusion: 02/04/21 23:02 Dose: Infused Documented by: Ibuprofen (Ibuprofen 200 Mg Tab) 400 mg PO Q6H PRN PRN Reason: Pain Stop: 03/05/21 00:01 Ketorolac Tromethamine (Ketorolac Tromethamine 15 Mg/Ml Vial) 15 mg IV Q6H PRN PRN Reason: Pain Stop: 02/08/21 00:01 Last Admin: 02/05/21 05:04 Dose: 15 mg Documented by: Lidocaine (Lidocaine 5% 1 Patch) 1 patch TD Q24H [facility] Stop: 03/05/21 21:29 Last Admin: 02/04/21 20:05 Dose: Not Given Documented by: Miscellaneous (Remove Nicoderm Patch) 1 ea N/A DAILY@0859 [facility] Stop: 03/05/21 08:58 Last Admin: 02/05/21 08:44 Dose: 1 ea Documented by: Miscellaneous (Remove Lidoderm Patch) 1 ea N/A Q24H [facility] Stop: 03/05/21 09:29 Last Admin: 02/05/21 08:45 Dose: Not Given Documented by: Morphine Sulfate (Morphine Sulfate Cr 15 Mg Tabcr) 15 mg PO TID [facility] Stop: 02/17/21 08:59 Last Admin: 02/05/21 14:41 Dose: 15 mg Documented by: Morphine Sulfate (Morphine Sulfate Ir 15 Mg Tab (Immediate Release)) 15 mg PO QID PRN PRN Reason: Pain Stop: 02/17/21 00:01 Last Admin: 02/05/21 12:39 Dose: 15 mg Documented by: Morphine Sulfate (Morphine Sulfate 2 Mg/Ml Carp) 2 mg IV Q4H PRN PRN Reason: Pain (7-10) Stop: 02/18/21 15:16 Nicotine (Nicotine 21 Mg/24 Hr Tdsy) 21 mg TD QAM [facility] Stop: 03/05/21 08:59 Last Admin: 02/05/21 08:44 Dose: 21 mg Documented by: Ondansetron HCl (Ondansetron Inj 2 Mg/Ml 2 Ml Vial) 2 mg IV Q4H PRN PRN Reason: Nausea Stop: 03/06/21 15:07 Ondansetron HCl (Ondansetron 2 Mg Od Tab) 2 mg PO Q4H PRN PRN Reason: Nausea And Vomiting Stop: 03/06/21 15:11 Last Admin: 02/04/21 22:14 Dose: 2 mg Documented by: Polyethylene Glycol (Polyethylene (Miralax) 17 Gm Pack) 17 gm PO DAILY PRN PRN Reason: Constipation Stop: 03/05/21 00:01
--- NOTE | 2021-02-05 16:10 | Discharge Summary ---
Date of Service February 05, 2021 Admission HPI Per Admitting Provider History obtained from patient, family, and records. Medical history significant for chronic pain/fibromyalgia as per records, IBS as per records, primary hyperparathyroidism, anxiety/mood disorder, past history cardiomyopathy (TTE 60 to 65%, TTE 2019), hypothyroidism, prediabetes, ongoing tobacco abuse. Patient fell from her sister's porch 3 months ago. Four hospital confinements since accident for intractable back pain, last one from January 07-2020. Physical therapy recommended by Orthopedics Spine and Pain management. Patient was on the commode yesterday when she felt something pop on her low back. Subsequent worsening of chronic back pain with radiation to the right lower extremity. No unusual weakness, numbness, incontinence. No fever, no chills. No chest pain, no S OB, no unusual cough. Intractable discomfort at the ER. Medical History as above : Surgical History : Cervical lymph node biopsy, section, cystoscopy, appendectomy, BTL, partial hysterectomy, cholecystectomy Family History : Crohn's disease Personal/Social history : One pack daily, no EtOH intake, disabled Admission Exam Per Admitting Provider GENERAL: uncomfortable, obese, no respiratory distress SKIN: Normal color, warm HEENT: [place] palpebral conjunctivae, no ptosis, dry buccal mucosa NECK : Supple, short neck, no tenderness CHEST : Decreased breath sounds, no tenderness HEART : Bradycardic, no obvious murmurs ABDOMEN: Some distention, nontender BACK : Low back tenderness, straight leg raise test R>L EXTREMITIES : Minimal LE swelling, no LE tenderness, no other conspicuous deformities noted NEUROLOGIC : Coherent, no facial asymmetry, no other gross focality Principal Diagnosis Acute on chronic back pain Discharge Exam GENERAL: obese F, pleasant, in no respiratory distress HEENT: NC/AT, EOMI, PERRL NECK : Supple, short neck, no tenderness CHEST : CTAB HEART : Bradycardic HR 57, no obvious murmurs ABDOMEN: Soft, obese, + bowel sounds,ND, nontender BACK : midline lower lumbar spine tenderness to palpation (improved) EXTREMITIES : Minimal LE swelling, no LE tenderness, moves LEs w/o difficulty SKIN: Normal color, warm NEUROLOGIC : Coherent, no facial asymmetry, speech fluent, moves extremities Discharge Data Allergies Allergy/AdvReac Type Severity Reaction Status Date / Time gabapentin Allergy Severe anaphylaxis Verified 02/02/21 19:21 tramadol Allergy Severe ANAPHYLAXIS Verified 02/02/21 19:21 chlorpheniramine Allergy Intermediate SHORTNESS Verified 02/02/21 19:21 OF BREATH guaifenesin Allergy Intermediate SHORTNESS Verified 02/02/21 19:21 OF BREATH metoclopramide AdvReac Intermediate anxiety Verified 02/02/21 19:21 Consultations 02/02/21 21:19 ED Decision to Admit Stat 02/02/21 23:00 Consult Orthopedic Surgery Routine 02/03/21 13:34 Consult Pain Management Routine Ordered Studies 02/02/21 19:07 CT lumbar spine wo con Stat IMPRESSION: 1. No osseous abnormality is identified involving the lumbar spine. 2. Degenerative disc disease at L4-L5 is similar to previous. CT pelvis wo con Stat IMPRESSION: No acute bony abnormality is identified. Hospital Course (1) Intractable low back pain: Recurrent confinements for lumbar radiculopathy after traumatic injury from November 2020 Chronic pain/fibromyalgia on narcotics Analgesia Judicious narcotic use Orthopedics Spine consultation Re: Recurrent back pain - pt is not surgical candidate Pain Management consulted after orthopedic spine eval. - no change in meds and no intervention at this time either Patient feels better, pain is controlled, nausea has resolved She feels she can manage at home Orthopedics and pain management both recommend PT, patient feels that she could benefit from more PT as well, Rx for outpatient PT eval and treatment provided on discharge She will also follow-up with her PCP and pain clinic as outpatient Primary hyperparathyroidism -patient follows with [facility] [place] Nephrology; scheduled to see [facility] [place] [place] endocrinology next month Hx cardiomyopathy - as per records (EF 60 to 65%, TTE 2019), patient on the dry side on admission Anxiety/mood disorder, symptoms at baseline as per patient Hypothyroidism, euthyroid as of recent TSH Prediabetes, hemoglobin A1c of 5.09 November 2020 Ongoing tobacco abuse Nicotine patch Total Time Total Time Spent Total Time Spent (In Minutes): 35 Discharge Plan Discharge Items Patient Disposition: Home - Self-Care Reason For Visit: BACK PAIN Discharge Diagnosis: Acute on chronic back pain Activity: Per Instructions section Non-emergency contact: Primary Care Provider Call non-emergency contact if: you have any medication questions and your symptoms worsen Follow-up/Referrals: Dajuan Bell, [Primary Care Provider] - (Date & Time 02/10/2021 11:00 AM Provider Dajuan Bell DO Department Family Practice [facility] ) Diet: Heart Healthy Addtl Attending Provider Instructions: Follow-up with your primary care doctor, and pain clinic. The appointment with your primary care doctor was scheduled for you for February 10. Orthopedics as well as pain management here recommend physical therapy. Prescription for outpatient evaluation by physical therapy and treatment provided on discharge. It is important that you follow instructions from physical therapy, such as do not bend your back when lifting things, use brace when needed, when picking up things, make sure to keep your back straight and bend your knees instead. Pending Studies at Discharge: No Stand-Alone Forms: My [facility] MePlease, Smoking Cessation Medications and DC Order Prescriptions: Continued furosemide [Lasix] 40 mg Tablet 40 mg PO QAM PRN (Reason: Edema) RF: 0 nitroglycerin [Nitrostat] 0.4 mg Tablet, Sublingual 0.4 mg Sublingual DIRECTED PRN (Reason: Chest Pain) RF: 0 morphine 15 mg tablet extended release 15 mg PO TID RF: 0 morphine 15 mg tablet 15 mg PO TID PRN (Reason: Pain) RF: 0 levothyroxine 125 mcg tablet 250 mcg PO QAM RF: 0 aspirin [Aspirin Low Dose] 81 mg Tablet,Delayed Release (Dr/Ec) 81 mg PO QAM RF: 0 metformin 500 mg tablet extended release 24 hr 500 mg PO DAILY RF: 0 duloxetine 60 mg capsule,delayed release(DR/EC) 60 mg PO DAILY RF: 0 baclofen 10 mg tablet 10 mg PO BID PRN (Reason: Muscle Spasm) RF: 0 celecoxib 200 mg capsule 200 mg PO BID PRN (Reason: Pain) RF: 0 polyethylene glycol 3350 [Miralax] 17 gram/dose Powder 17 g PO DAILY PRN (Reason: Constipation) RF: 0 duloxetine 30 mg capsule,delayed release(DR/EC) 30 mg PO DAILY RF: 0 tizanidine 2 mg tablet 2 mg PO Q6H PRN (Reason: MUSCLE SPASMS) RF: 0 acetaminophen [Tylenol Extra Strength] 500 mg Tablet 1,000 mg PO Q6H PRN (Reason: Pain) RF: 0 ibuprofen 200 mg Tablet 400 mg PO Q6H PRN (Reason: Pain) RF: 0 Discharge Orders: Discharge Order (Routine); Ordered 09/03/21 Ordered By: Michael Corrales Admission Data Admit Date/Time: 02/04/21 15:18 Attending Provider: Michael Corrales Admit Provider: Ivan Hebert Primary Care Provider: Dajuan Bell Other Providers: Ivan Hebert ; Blue Martinez Sabrina M. ; Ant Cowart
== END 2021-02-05 17:45 | disposition home or self-care (01) | DRG 552 ==
LOC: ED 16:34 → 3E 16:34 → SUATTDRO 22:58 → 3E 23:42
DX: R00.1 Bradycardia, unspecified; E21.0 Primary hyperparathyroidism; Z91.81 History of falling; K58.9 Irritable bowel syndrome, unspecified; Z79.899 Other long term (current) drug therapy; Z79.84 Long term (current) use of oral hypoglycemic drugs; Z79.890 Hormone replacement therapy; Z98.2 Presence of cerebrospinal fluid drainage device; G89.29 Other chronic pain; Z88.8 Allergy status to other drugs, medicaments and biological substances; F17.210 Nicotine dependence, cigarettes, uncomplicated; M54.5 Low back pain; M79.7 Fibromyalgia; Z87.820 Personal history of traumatic brain injury; E03.9 Hypothyroidism, unspecified; Z20.822 Contact with and (suspected) exposure to COVID-19

== ENCOUNTER 2021-03-06 19:19 | Observation (INO) ==
[2021-03-06] MEDS ORDERED: SODIUM CHLORIDE 0.9% 1000ML 1,000 ML IV ONE (19:46)
[2021-03-06] MEDS ORDERED: PROMETHAZINE HCL 12.5 MG in SODIUM CHLORIDE 0.9% 50 ML IV STA (19:47)
[2021-03-06] MEDS ORDERED: HYDROmorphone INJ 0.5 MG/0.5 ML SYR IV STA (19:47)
--- NOTE | 2021-03-06 19:49 | Emergency Department Note ---
Impression & Plan Vomiting Admission to observation ED Provider Note HPI: The patient is a 50-year-old female with history of chronic back pain, history of stress-induced MA, presents the emergency department for the third time in the past 48 hours with a chief complaint of back pain and intractable nausea and vomiting. Patient was recently noted to of also complained of some atypical type of chest pain that she tells me is resolved currently. Patient states that she is unable to take any oral intake and vomits when she attempts to eat or drink anything. She states that she does not feel that she can go home in this condition. On arrival to the emergency department the patient is hemodynamically stable, she does not exhibit any increased work of breathing, she is otherwise in no acute distress on my initial evaluation. ROS: -GI: Nausea and vomiting -MSK: Chronic back pain *10 point review systems was conducted and is otherwise negative unless stated above *Outpatient medications and allergy history reviewed PE: General: Obese, alert, NAD HEENT: Normocephalic, atraumatic, trachea midline Eyes: Extraocular eye movement is intact, no scleral erythema Pulmonary: Clear to auscultation bilaterally, no wheezing Cardio: Regular rate and rhythm GI: Abdomen is soft, moderate tenderness to palpation without any guarding or rigidity : No suprapubic tenderness MSK: No evidence of trauma or malformation of the extremities, no edema Skin: No evidence of rash Neuro: Alert, no focal deficits Psychiatric: Cooperative shelter monitor: Order for nurse monitoring was placed, patient is in sinus rhythm with a regular rate EKG: -Normal sinus rhythm with a rate of 74, no ST elevation, intervals are within normal limits Medical Decision Making: -Patient presented to the emergency department for the third time within a short period with complaint of back pain, nausea and vomiting. CT imaging of the abdomen pelvis does not show any evidence of an acute surgical abnormality. Patient was given Phenergan by request here in the ED, she was given IV fluids, lab work otherwise appears unchanged from previous. Troponin is negative. Patient is saturating well on room air. On reevaluation the patient states that she is still too nauseous for discharge, given that she has been evaluated multiple times in the ED already in the past several days, I did arrange for admission to an observation bed on the hospitalist service. Patient was admitted in stable condition for further care. * Diagnosis: Intractable nausea and vomiting * Disposition: Admission Torres Branch DO Emergency Medicine Past Med/Surg History Medical History (Updated 03/06/21 @ 22:58 by Torres Branch DO) Acute exacerbation of chronic low back pain Anxiety Atelectasis Back pain Bulging lumbar disc Small broad-based posterior disc bulge with a small right paracentral focal disc protrusion Cardiomyopathy 2014 - thought to be stress induced, reported normal dobutamine stress and echo after Chronic back pain Chronic pain syndrome Depression Fibromyalgia H/O traumatic brain injury Hypokalemia Hypothyroidism (Unknown) IBS (irritable bowel syndrome) Intractable back pain Intractable nausea and vomiting Migraines Opiate dependence Tobacco abuse Surgical History Bilateral tubal ligation (Unknown) section (Unknown) H/O colonoscopy "2006 path normal" H/O cystoscopy H/O esophagogastroduodenoscopy "2006 path normal" Hx of appendectomy Hx of cholecystectomy Hx of hysterectomy S/P lymph node biopsy "deep cervical inflammatory node 2007" Family History Other Diabetes Hypertension Thyroid disorder Social History Smoking Status: Current every day smoker Tobacco Type: Cigarettes Cigarettes Per Day: 10; Second Hand Exposure: Yes; Hx Alcohol Use: No Hx Substance Use: No Preferred Language: Irish Communication Ability: Effective Visual Impairment: Partially Limited Cardiovascular Disease Specialist Required: No Beliefs That Will Affect Care: None marital status: Current Living Situation: Spouse and Family Feels Safe at Home: Yes Assistive Devices: Denture - Upper Allergies Allergies Allergy/AdvReac Type Severity Reaction Status Date / Time gabapentin Allergy Severe anaphylaxis Verified 03/06/21 20:32 tramadol Allergy Severe ANAPHYLAXIS Verified 03/06/21 20:32 chlorpheniramine Allergy Intermediate SHORTNESS Verified 03/06/21 20:32 OF BREATH guaifenesin Allergy Intermediate SHORTNESS Verified 03/06/21 20:32 OF BREATH metoclopramide AdvReac Intermediate anxiety Verified 03/06/21 20:32 Home Meds Home Medications Medication Instructions Recorded Confirmed furosemide 40 mg tablet (Lasix) 40 mg PO QAM PRN 03/17/18 03/06/21 nitroglycerin 0.4 mg sublingual 0.4 mg SUBLINGUAL DIRECTED PRN 03/17/18 03/06/21 tablet (Nitrostat) morphine 15 mg tablet,extended 15 mg PO TID 10/06/18 03/06/21 release (MS Contin) levothyroxine 125 mcg tablet 250 mcg PO QAM 12/28/19 03/06/21 (Synthroid) morphine 15 mg immediate release 15 mg PO TID PRN 12/28/19 03/06/21 tablet aspirin 81 mg tablet,delayed 81 mg PO QAM 09/23/20 03/06/21 release (Aspirin Low Dose) duloxetine 60 mg capsule,delayed 60 mg PO QAM 09/24/20 03/06/21 release (Cymbalta) metformin 500 mg tablet,extended 500 mg PO QDL 09/24/20 03/06/21 release 24 hr duloxetine 30 mg capsule,delayed 30 mg PO QAM 11/15/20 03/06/21 release (Cymbalta) polyethylene glycol 3350 17 17 g PO DAILY PRN 11/15/20 03/06/21 gram/dose oral powder (Miralax) acetaminophen 500 mg tablet 1,000 mg PO Q6H PRN 11/16/20 03/06/21 (Tylenol Extra Strength) ibuprofen 200 mg tablet (Advil) 400 mg PO Q6H PRN 11/16/20 03/06/21 baclofen 10 mg tablet 10 mg PO BID PRN 01/06/21 03/06/21 celecoxib 200 mg capsule (Celebrex) 200 mg PO BID PRN 01/06/21 03/06/21 promethazine 25 mg tablet 25 mg PO Q6H PRN 03/06/21 03/06/21 Results & Data (ED) Vital Signs Vital Signs - 24 hr 03/06/21 19:23 03/06/21 20:27 03/06/21 22:31 Temperature 37 C Temperature Source Oral Pulse Rate 84 Respiratory Rate 22 Respiratory Depth Shallow Blood Pressure 143/95 H Blood Pressure [Left Arm] 144/107 H 136/111 H Blood Pressure Mean 111 Blood Pressure Mean [Left Arm] 119 119 Pulse Oximetry 97 96 Oxygen Delivery Method Room Air Room Air Sepsis Recent Fever Within 48 Hours No Sepsis New/Unexplained Change in Mental Status No Sepsis Action Taken by Nursing No Action Required Laboratory Data Result diagrams: 03/06/21 20:16 03/06/21 20:16 Lab Results 03/06/21 03/06/21 03/06/21 Range/Units 20:16 20:16 20:16 WBC 12.30 H (4.8-10.8) K/uL RBC 5.34 (4.2-5.4) M/uL Hgb 16.3 H (12.0-16.0) g/dL Hct 47.7 H (37-47) % MCV 89.3 (80-100) fL MCH 30.5 (25-34) pg MCHC 34.2 (32-36) g/dL RDW Std Deviation 48.8 H (36.4-46.3) fL RDW Coeff of Roro 14.9 H (11.5-14.5) % Plt Count 279 (130-400) K/uL MPV 10.1 (7.4-10.4) fL Immature Gran % (Auto) 0.2 % Neut % (Auto) 75.9 % Lymph % (Auto) 18.5 % Pershing % (Auto) 5.0 % Eos % (Auto) 0.2 % Baso % (Auto) 0.2 % Neut # (Auto) 9.32 H (1.4-6.5) K/uL Lymph # (Auto) 2.28 (1.2-3.4) K/uL Pershing # (Auto) 0.62 H (0.11-0.59) K/uL Eos # (Auto) 0.03 (0-0.5) K/uL Baso # (Auto) 0.02 (0-0.2) K/uL Immature Gran # (Auto) 0.03 H (0.00-0.02) K/uL APTT 26.9 (21.0-31.0) Seconds PTT Ratio 1.0 Sodium 141 (136-145) mmol/L Potassium 3.3 L (3.5-5.1) mmol/L Chloride 107 (98-107) mmol/L Carbon Dioxide 29 (21-32) mmol/L Anion Gap 5.0 (3-11) BUN 11 (7-18) mg/dl Creatinine 1.07 (0.6-1.2) mg/dl Est Cr Clr Drug Dosing 88.2 ml/min Est GFR ( Amer) 70.6 ml/min Est GFR (Non-Af Amer) 60.9 ml/min BUN/Creatinine Ratio 10.1 (10-20) Glucose 113 H (70-99) mg/dl Calcium 10.1 (8.5-10.1) mg/dl Magnesium 2.4 (1.8-2.4) mg/dl Total Bilirubin 0.8 (0.2-1) mg/dl AST 19 (15-37) U/L ALT 20 (12-78) U/L Alkaline Phosphatase 114 (45-117) U/L Troponin I < 0.015 (0-0.045) ng/ml Total Protein 8.2 (6.4-8.2) gm/dl Albumin 3.8 (3.4-5.0) gm/dl Globulin 4.4 H (2.5-4.0) gm/dl Albumin/Globulin Ratio 0.9 (0.9-2) Lipase 123 (73-393) U/L Administered Medications Lactated Ringer's (Lr) 1,000 mls @ 100 mls/hr IV .Q10H ONE Stop: 03/07/21 08:20 Last Admin: 03/06/21 22:27 Dose: 100 mls/hr Documented by: [id number] Discontinued Medications Hydromorphone HCl (Hydromorphone Inj 0.5 Mg/0.5 Ml Syr) 0.25 mg IV NOW STA Stop: 03/06/21 19:48 Last Admin: 03/06/21 20:22 Dose: 0.25 mg Documented by: [id number] Sodium Chloride (Nss 1000ml) 1,000 mls @ 999 mls/hr IV .Q1H1M ONE Stop: 03/06/21 20:46 Last Infusion: 03/06/21 21:50 Dose: 0 mls/hr Documented by: [id number] Admin: 03/06/21 20:23 Dose: 999 mls/hr Documented by: [id number] Promethazine HCl (Phenergan) 12.5 mg in 50.5 mls @ 202 mls/hr IV ONE ONE Stop: 03/06/21 20:14 Last Infusion: 03/06/21 21:05 Dose: 0 mls/hr Documented by: [id number] Admin: 03/06/21 20:22 Dose: 202 mls/hr Documented by: [id number] Ioversol (Optiray 320 100ml) 94 ml IV ONCE ONE Stop: 03/06/21 21:00 Last Admin: 03/06/21 20:59 Dose: 1 ml Documented by: [id number] Ketorolac Tromethamine (Ketorolac Tromethamine 15 Mg/Ml Vial) 15 mg IV NOW ONE Stop: 03/06/21 22:12 Last Admin: 03/06/21 22:27 Dose: 15 mg Documented by: [id number] Imaging Data Radiologist's Impression: Abdomen/Pelvis CT 03/06/21 19:46 CT abd pelvis IV con only CLINICAL INDICATION: Nausea, vomiting. TECHNIQUE: Helical axial images of the abdomen and pelvis were obtained and displayed at 5 and 1 mm intervals. Automated dose lowering techniques and/or adjustment according to patient size were utilized for this exam. This exam was performed with intravenous contrast. COMPARISON: None available at the time of this dictation. FINDINGS: Lower chest: Prior CT abdomen pelvis 09/24/2020 Liver: Unremarkable. No focal lesions are seen. Gallbladder and biliary tree: Patient is status post cholecystectomy. No intra- or extrahepatic biliary ductal dilation. Pancreas: Unremarkable, no focal lesions. Spleen: Unremarkable. Adrenals: Bilateral adrenal nodules are seen measuring approximately 11 mm in diameter, unchanged from prior exam. Kidneys and ureters: Unremarkable. Bladder: Unremarkable. Reproductive organs: Unremarkable. Bowel: Patient is status post appendectomy. The bowel is otherwise unremarkable. Lymph nodes Retroperitoneal: Unremarkable. Mesenteric: Unremarkable. Pelvic: Unremarkable. Peritoneum: Normal Vessels: Unremarkable. Abdominal wall: Unremarkable. Bones: Unremarkable. IMPRESSION: 1. No acute abnormality to explain patient's nausea and vomiting. 2. Bilateral adrenal adenomas which do not meet criteria for lipid rich adenoma. If there is clinical concern and these have not been previously evaluated, nonemergent adrenal protocol CT or MRI can be performed. ACT 112: Negative or not required by law. Electronically signed by: Kendall Trinh M.D. 03/06/2021 9:30 PM Discharge Plan Visit Data Chief Complaint: Vomiting Stated Complaint: VOMITING, BACK PAIN ED Provider: Torres Branch Discharge Problem: Vomiting Forms Stand Alone Forms: [facility] Prescriptions Prescriptions: No Action furosemide [Lasix] 40 mg Tablet 40 mg PO QAM PRN (Reason: Edema) RF: 0 nitroglycerin [Nitrostat] 0.4 mg Tablet, Sublingual 0.4 mg Sublingual DIRECTED PRN (Reason: Chest Pain) RF: 0 morphine [MS Contin] 15 mg tablet extended release 15 mg PO TID RF: 0 morphine 15 mg tablet 15 mg PO TID PRN (Reason: Pain) RF: 0 levothyroxine [Synthroid] 125 mcg tablet 250 mcg PO QAM RF: 0 aspirin [Aspirin Low Dose] 81 mg Tablet,Delayed Release (Dr/Ec) 81 mg PO QAM RF: 0 metformin 500 mg tablet extended release 24 hr 500 mg PO QDL RF: 0 duloxetine [Cymbalta] 60 mg capsule,delayed release(DR/EC) 60 mg PO QAM RF: 0 baclofen 10 mg tablet 10 mg PO BID PRN (Reason: Muscle Spasm) RF: 0 celecoxib [Celebrex] 200 mg capsule 200 mg PO BID PRN (Reason: Pain) RF: 0 polyethylene glycol 3350 [Miralax] 17 gram/dose Powder 17 g PO DAILY PRN (Reason: Constipation) RF: 0 duloxetine [Cymbalta] 30 mg capsule,delayed release(DR/EC) 30 mg PO QAM RF: 0 acetaminophen [Tylenol Extra Strength] 500 mg Tablet 1,000 mg PO Q6H PRN (Reason: Pain) RF: 0 ibuprofen [Advil] 200 mg Tablet 400 mg PO Q6H PRN (Reason: Pain) RF: 0 promethazine 25 mg tablet 25 mg PO Q6H PRN (Reason: Nausea) RF: 0 Referrals Referrals: Dajuan Bell DO [Primary Care Provider] - Discharge Problem: Vomiting Qualifiers: Vomiting type: unspecified Vomiting Intractability: intractable Nausea presence: with nausea Qualified Code(s): R11.2 - Nausea with vomiting, unspecified
[2021-03-06] MEDS ORDERED: PROMETHAZINE 12.5 MG/50.5 ML BAG IV ONE (20:00)
[2021-03-06 20:22] LABS: Basophils # (auto) 0.02 K/uL (0-0.2); Basophils % (auto) 0.2 %; Eosinophils # (auto) 0.03 K/uL (0-0.5); Eosinophils % (auto) 0.2 %; Hematocrit (blood only) 47.7 % (37-47); Hemoglobin 16.3 g/dL (12.0-16.0); Immature Granulocytes # (auto) 0.03 K/uL (0.00-0.02); Immature Granulocytes % (auto) 0.2 %; Lymphocytes # (auto) 2.28 K/uL (1.2-3.4); Lymphocytes % (auto) 18.5 %; Mean Corpuscular Hemoglobin 30.5 pg (25-34); Mean Corpuscular Hgb Conc 34.2 g/dL (32-36); Mean Corpuscular Volume 89.3 fL (80-100); Mean Platelet Volume 10.1 fL (7.4-10.4); Monocytes # (auto) 0.62 K/uL (0.11-0.59); Neutrophils # (auto) 9.32 K/uL (1.4-6.5); Neutrophils % (auto) 75.9 %; Platelet Count 279 K/uL (130-400); RDW Coefficient of Variation 14.9 % (11.5-14.5); RDW Standard Deviation 48.8 fL (36.4-46.3); Red Blood Count 5.34 M/uL (4.2-5.4)
[2021-03-06 20:32] LABS: Partial Thromboplastin Time 26.9 Seconds (21.0-31.0)
[2021-03-06 20:57] LABS: Alanine Aminotransferase 20 U/L (12-78); Albumin Level 3.8 gm/dl (3.4-5.0); Aspartate Aminotransferase 19 U/L (15-37); BUN Creatinine Ratio 10.1 (10-20); Blood Urea Nitrogen 11 mg/dl (7-18); Calcium 10.1 mg/dl (8.5-10.1); Carbon Dioxide 29 mmol/L (21-32); Chloride 107 mmol/L (98-107); Creatinine Clr Calc Pharmacy 88.2 ml/min; Est GFR (African American) 70.6 ml/min; Est GFR (Non-African American) 60.9 ml/min; Glucose 113 mg/dl (70-99); Lipase 123 U/L (73-393); Potassium 3.3 mmol/L (3.5-5.1); Sodium 141 mmol/L (136-145)
[2021-03-06] MEDS ORDERED: OPTIRAY 320 100ml IV ONE (20:59)
[2021-03-06 21:01] LABS: Albumin Globulin Ratio 0.9 (0.9-2); Alkaline Phosphatase 114 U/L (45-117); Bilirubin,Total 0.8 mg/dl (0.2-1); Globulin 4.4 gm/dl (2.5-4.0); Total Protein 8.2 gm/dl (6.4-8.2); Troponin I < 0.015 ng/ml (0-0.045)
--- NOTE | 2021-03-06 21:31 | CT Scan Report ---
CT abd pelvis IV con only CLINICAL INDICATION: Nausea, vomiting. TECHNIQUE: Helical axial images of the abdomen and pelvis were obtained and displayed at 5 and 1 mm i ntervals. Automated dose lowering techniques and/or adjustment according to patient size were utilize d for this exam. This exam was performed with intravenous contrast. COMPARISON: None available at the time of this dictation. FINDINGS: Lower chest: Prior CT abdomen pelvis 09/24/2020 Liver: Unremarkable. No focal lesions are seen. Gallbladder and biliary tree: Patient is status post cholecystectomy. No intra- or extrahepatic bilia ry ductal dilation. Pancreas: Unremarkable, no focal lesions. Spleen: Unremarkable. Adrenals: Bilateral adrenal nodules are seen measuring approximately 11 mm in diameter, unchanged fro m prior exam. Kidneys and ureters: Unremarkable. Bladder: Unremarkable. Reproductive organs: Unremarkable. Bowel: Patient is status post appendectomy. The bowel is otherwise unremarkable. Lymph nodes Retroperitoneal: Unremarkable. Mesenteric: Unremarkable. Pelvic: Unremarkable. Peritoneum: Normal Vessels: Unremarkable. Abdominal wall: Unremarkable. Bones: Unremarkable. IMPRESSION: 1. No acute abnormality to explain patient's nausea and vomiting. 2. Bilateral adrenal adenomas which do not meet criteria for lipid rich adenoma. If there is clinica l concern and these have not been previously evaluated, nonemergent adrenal protocol CT or MRI can be performed. ACT 112: Negative or not required by law. Electronically signed by: Kendall Trinh M.D. 03/06/2021 9:30 PM
[2021-03-06] MEDS ORDERED: KETOROLAC TROMETHAMINE 15 MG/ML VIAL IV ONE (22:11)
--- NOTE | 2021-03-06 22:11 | History & Physical Report ---
Date of Service March 06, 2021 Assessment & Plan (1) Recurrent low back pain: Plan: With radiculopathy symptoms Recurrent confinements for lumbar radiculopathy after traumatic injury from November 2020 Chronic pain/fibromyalgia on narcotics Acute gastroenteritis rule out C. difficile Situational hypertension secondary to illness, possible chronic BP elevation given LVH on 2D echo from last year primary hyperparathyroidism, patient follows with [facility] Nephrology hx cardiomyopathy as per records (EF 60 to 65%, TTE 2019), patient on the dry side Anxiety/mood disorder, symptoms at baseline as per patient Hypothyroidism, euthyroid as of recent TSH Prediabetes, hemoglobin A1c of 5.09 November 2020 Ongoing tobacco abuse OBS [facility] Analgesia Judicious narcotic use Pain Management consultation pending orthopedic spine eval. Stool C. difficile Initiate lisinopril if with persistent BP duration Nicotine patch DVT prophylaxis. SCDs RE possible procedural intervention Full code Patient's requesting updates from providers. Mr. Ayush Schneider, contact #[phone]. Text document was generated using [employer] voice recognition software. It may contain grammatical or spelling errors. Kindly contact undersigned for clarification of any documentation item in question. History of Present Illness Chief Complaint: Uncontrolled back pain Primary Care Provider: Dajuan Bell, History obtained from patient, family, and records. Medical history significant for chronic pain/fibromyalgia as per records, IBS as per records, primary hyperparathyroidism, anxiety/mood disorder, past history cardiomyopathy (TTE 60 to 65%, TTE 2019), hypothyroidism, prediabetes, ongoing tobacco abuse. Patient fell from her sister's porch 3 months ago. Five hospital confinements since accident for intractable back pain - last one from February 04-2020. Physical therapy recommended by [facility]. 03/05 Patient noted worsening of chronic low back pain with radiation to both feet without unusual weakness, numbness, incontinence. No fever, no chills. No recent trauma. Patient later noted nausea vomiting diarrhea symptoms without abdominal pain. She could not keep her morphine down. Patient brought by to the ER but subsequently discharged. 03/06 Patient returned to ER for transient chest pain and persistent back pain symptoms Patient discharged home after negative work-up. Patient returned to ER with intractable back pain complaints. Medical History as above : Surgical History : Cervical lymph node biopsy, section, cystoscopy, appendectomy, BTL, partial hysterectomy, cholecystectomy Family History : Crohn's disease Personal/Social history : One pack daily, no EtOH intake, disabled Allergies Allergy/AdvReac Type Severity Reaction Status Date / Time gabapentin Allergy Severe anaphylaxis Verified 03/06/21 20:32 tramadol Allergy Severe ANAPHYLAXIS Verified 03/06/21 20:32 chlorpheniramine Allergy Intermediate SHORTNESS Verified 03/06/21 20:32 OF BREATH guaifenesin Allergy Intermediate SHORTNESS Verified 03/06/21 20:32 OF BREATH metoclopramide AdvReac Intermediate anxiety Verified 03/06/21 20:32 Home Medications Medication Instructions Recorded Confirmed Type furosemide 40 mg tablet (Lasix) 40 mg PO QAM PRN 03/17/18 03/06/21 History nitroglycerin 0.4 mg sublingual 0.4 mg SUBLINGUAL DIRECTED PRN 03/17/18 03/06/21 History tablet (Nitrostat) morphine 15 mg tablet,extended 15 mg PO TID 10/06/18 03/06/21 History release (MS Contin) levothyroxine 125 mcg tablet 250 mcg PO QAM 12/28/19 03/06/21 History (Synthroid) morphine 15 mg immediate release 15 mg PO TID PRN 12/28/19 03/06/21 History tablet aspirin 81 mg tablet,delayed 81 mg PO QAM 09/23/20 03/06/21 History release (Aspirin Low Dose) duloxetine 60 mg capsule,delayed 60 mg PO QAM 09/24/20 03/06/21 History release (Cymbalta) metformin 500 mg tablet,extended 500 mg PO QDL 09/24/20 03/06/21 History release 24 hr duloxetine 30 mg capsule,delayed 30 mg PO QAM 11/15/20 03/06/21 History release (Cymbalta) polyethylene glycol 3350 17 17 g PO DAILY PRN 11/15/20 03/06/21 History gram/dose oral powder (Miralax) acetaminophen 500 mg tablet 1,000 mg PO Q6H PRN 11/16/20 03/06/21 History (Tylenol Extra Strength) ibuprofen 200 mg tablet (Advil) 400 mg PO Q6H PRN 11/16/20 03/06/21 History baclofen 10 mg tablet 10 mg PO BID PRN 01/06/21 03/06/21 History celecoxib 200 mg capsule (Celebrex) 200 mg PO BID PRN 01/06/21 03/06/21 History promethazine 25 mg tablet 25 mg PO Q6H PRN 03/06/21 03/06/21 History Past Med/Surg History Medical History (Updated 03/07/21 @ 01:17 by Ivan Hebert MD) Acute exacerbation of chronic low back pain Anxiety Atelectasis Back pain Bulging lumbar disc Small broad-based posterior disc bulge with a small right paracentral focal disc protrusion Cardiomyopathy 2014 - thought to be stress induced, reported normal dobutamine stress and echo after Chronic back pain Chronic pain syndrome Depression Fibromyalgia H/O traumatic brain injury Hypokalemia Hypothyroidism (Unknown) IBS (irritable bowel syndrome) Intractable back pain Intractable nausea and vomiting Migraines Opiate dependence Tobacco abuse Surgical History Bilateral tubal ligation (Unknown) section (Unknown) H/O colonoscopy "2006 path normal" H/O cystoscopy H/O esophagogastroduodenoscopy "2006 path normal" Hx of appendectomy Hx of cholecystectomy Hx of hysterectomy S/P lymph node biopsy "deep cervical inflammatory node 2007" Family History Other Diabetes Hypertension Thyroid disorder Social History Smoking Status: Current every day smoker Tobacco Type: Cigarettes Cigarettes Per Day: 10; Second Hand Exposure: Yes; Do You Dip or Chew Tobacco: No; Tobacco Cessation Education Requested by Patient: No Hx Alcohol Use: No Hx Substance Use: No Preferred Language: Tamazight Communication Ability: Effective Visual Impairment: Partially Limited Cyber Software 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 Required: No Beliefs That Will Affect Care: None marital status: Current Living Situation: Spouse and Family Current Living Situation Comment: grandson Other Information That Helps Us Care for You: No Feels Safe at Home: Yes Safety Concerns: Feels Safe At This Time Assistive Devices: Denture - Upper Review of Systems Review of Systems: As per HPI, all 10 systems reviewed, all other ROS negative Physical Exam Physical Exam: GENERAL: uncomfortable, obese, no respiratory distress SKIN: Normal color, warm HEENT: Dike palpebral conjunctivae, no ptosis, dry buccal mucosa NECK : Supple, short neck, no tenderness CHEST : Decreased breath sounds, no tenderness HEART : RRR, no obvious murmurs ABDOMEN: Some distention, nontender BACK : Low back tenderness, straight leg raise test R>L EXTREMITIES : Minimal LE swelling, no LE tenderness, no other conspicuous deformities noted NEUROLOGIC : Coherent, no facial asymmetry, no other gross focality Results & Data Results & Data ([facility]) Vital Signs (Past 12 Hours) Vital Signs Temp Pulse Resp BP BP Pulse Ox 03/06/21 20:27 144/107 H 96 03/06/21 19:23 37 C 84 22 143/95 H 97 Laboratory Results Laboratory Results WBC 12.30 K/uL (4.8-10.8) H 03/06/21 20:16 RBC 5.34 M/uL (4.2-5.4) 03/06/21 20:16 Hgb 16.3 g/dL (12.0-16.0) H 03/06/21 20:16 Hct 47.7 % (37-47) H 03/06/21 20:16 MCV 89.3 fL (80-100) 03/06/21 20:16 MCH 30.5 pg (25-34) 03/06/21 20:16 MCHC 34.2 g/dL (32-36) 03/06/21 20:16 RDW Std Deviation 48.8 fL (36.4-46.3) H 03/06/21 20:16 RDW Coeff of Roro 14.9 % (11.5-14.5) H 03/06/21 20:16 Plt Count 279 K/uL (130-400) 03/06/21 20:16 MPV 10.1 fL (7.4-10.4) 03/06/21 20:16 Immature Gran % (Auto) 0.2 % 03/06/21 20:16 Neut % (Auto) 75.9 % 03/06/21 20:16 Lymph % (Auto) 18.5 % 03/06/21 20:16 Owsley % (Auto) 5.0 % 03/06/21 20:16 Eos % (Auto) 0.2 % 03/06/21 20:16 Baso % (Auto) 0.2 % 03/06/21 20:16 Neut # (Auto) 9.32 K/uL (1.4-6.5) H 03/06/21 20:16 Lymph # (Auto) 2.28 K/uL (1.2-3.4) 03/06/21 20:16 Owsley # (Auto) 0.62 K/uL (0.11-0.59) H 03/06/21 20:16 Eos # (Auto) 0.03 K/uL (0-0.5) 03/06/21 20:16 Baso # (Auto) 0.02 K/uL (0-0.2) 03/06/21 20:16 Immature Gran # (Auto) 0.03 K/uL (0.00-0.02) H 03/06/21 20:16 APTT 26.9 Seconds (21.0-31.0) 03/06/21 20:16 PTT Ratio 1.0 03/06/21 20:16 Sodium 141 mmol/L (136-145) 03/06/21 20:16 Potassium 3.3 mmol/L (3.5-5.1) L 03/06/21 20:16 Chloride 107 mmol/L (98-107) 03/06/21 20:16 Carbon Dioxide 29 mmol/L (21-32) 03/06/21 20:16 Anion Gap 5.0 (3-11) 03/06/21 20:16 BUN 11 mg/dl (7-18) 03/06/21 20:16 Creatinine 1.07 mg/dl (0.6-1.2) 03/06/21 20:16 Est Cr Clr Drug Dosing 88.2 ml/min 03/06/21 20:16 Est GFR ( Amer) 70.6 ml/min 03/06/21 20:16 Est GFR (Non-Af Amer) 60.9 ml/min 03/06/21 20:16 BUN/Creatinine Ratio 10.1 (10-20) 03/06/21 20:16 Glucose 113 mg/dl (70-99) H 03/06/21 20:16 Calcium 10.1 mg/dl (8.5-10.1) 03/06/21 20:16 Total Bilirubin 0.8 mg/dl (0.2-1) 03/06/21 20:16 AST 19 U/L (15-37) 03/06/21 20:16 ALT 20 U/L (12-78) 03/06/21 20:16 Alkaline Phosphatase 114 U/L (45-117) 03/06/21 20:16 Troponin I < 0.015 ng/ml (0-0.045) 03/06/21 20:16 Total Protein 8.2 gm/dl (6.4-8.2) 03/06/21 20:16 Albumin 3.8 gm/dl (3.4-5.0) 03/06/21 20:16 Globulin 4.4 gm/dl (2.5-4.0) H 03/06/21 20:16 Albumin/Globulin Ratio 0.9 (0.9-2) 03/06/21 20:16 Lipase 123 U/L (73-393) 03/06/21 20:16 Impressions Abdomen/Pelvis CT 03/06/21 19:46 CT abd pelvis IV con only CLINICAL INDICATION: Nausea, vomiting. TECHNIQUE: Helical axial images of the abdomen and pelvis were obtained and displayed at 5 and 1 mm intervals. Automated dose lowering techniques and/or adjustment according to patient size were utilized for this exam. This exam was performed with intravenous contrast. COMPARISON: None available at the time of this dictation. FINDINGS: Lower chest: Prior CT abdomen pelvis 09/24/2020 Liver: Unremarkable. No focal lesions are seen. Gallbladder and biliary tree: Patient is status post cholecystectomy. No intra- or extrahepatic biliary ductal dilation. Pancreas: Unremarkable, no focal lesions. Spleen: Unremarkable. Adrenals: Bilateral adrenal nodules are seen measuring approximately 11 mm in diameter, unchanged from prior exam. Kidneys and ureters: Unremarkable. Bladder: Unremarkable. Reproductive organs: Unremarkable. Bowel: Patient is status post appendectomy. The bowel is otherwise unremarkable. Lymph nodes Retroperitoneal: Unremarkable. Mesenteric: Unremarkable. Pelvic: Unremarkable. Peritoneum: Normal Vessels: Unremarkable. Abdominal wall: Unremarkable. Bones: Unremarkable. IMPRESSION: 1. No acute abnormality to explain patient's nausea and vomiting. 2. Bilateral adrenal adenomas which do not meet criteria for lipid rich adenoma. If there is clinical concern and these have not been previously evaluated, nonemergent adrenal protocol CT or MRI can be performed. ACT 112: Negative or not required by law. Electronically signed by: Kendall Trinh M.D. 03/06/2021 9:30 PM Diagnostic Findings EKG as per my interpretation: Rate 75, NSR, normal axis, T wave abnormality septal leads, low voltage
[2021-03-06 22:16] LABS: Magnesium 2.4 mg/dl (1.8-2.4)
[2021-03-06] MEDS ORDERED: LACTATED RINGER'S 1,000 ML IV ONE (22:21)
[2021-03-06] MEDS ORDERED: LIDOCAINE 5% 1 PATCH TD STA (22:35)
[2021-03-07 01:41] LABS: Appearance Urine Clear (Clear); Bilirubin Urine Negative (Negative); Blood Urine 2+ (Negative); Color Urine Yellow; Epithelial Cell Urine Auto >30 /lpf (0-5); Glucose Urine UA Negative (Negative); Ketones Urine Negative (Negative); Leukocyte Esterase Urine Negative (Negative); Nitrite Urine Negative (Negative); Urobilinogen Urine Negative (Negative); pH Urine 8.5 (4.5-7.5)
[2021-03-07 01:42] LABS: Protein Urine 1+ (Negative)
[2021-03-07 01:44] LABS: Specific Gravity Urine > 1.045 (1.000-1.030)
[2021-03-07 01:55] LABS: Cast Urine Automated 0 /lpf (0-5)
[2021-03-07 01:56] LABS: Bacteria Urine Automated Negative (Negative)
[2021-03-07] MEDS ORDERED: PROMETHAZINE HCL 12.5 MG in SODIUM CHLORIDE 0.9% 50 ML IV PRN (02:13)
[2021-03-07] MEDS ORDERED: ACETAMINOPHEN 325 MG TAB PO PRN (02:13)
[2021-03-07] MEDS ORDERED: BACLOFEN 10 MG TAB PO PRN (02:13)
[2021-03-07] MEDS ORDERED: CeleBREX 200 MG CAP PO PRN (02:13)
[2021-03-07] MEDS ORDERED: ONDANSETRON INJ 2 MG/ML 2 ML VIAL IV PRN (02:13)
[2021-03-07] MEDS ORDERED: POLYETHYLENE (MIRALAX) 17 GM PACK PO PRN (02:13)
[2021-03-07] MEDS ORDERED: lisinopril 2.5 MG TAB PO ONE (02:45)
[2021-03-07] MEDS: MoRPHine SULFATE CR 15 MG TABCR PO SCH ×4 (02:52→22:33)
[2021-03-07] MEDS ORDERED: KETOROLAC TROMETHAMINE 15 MG/ML VIAL IV ONE (03:11)
[2021-03-07] MEDS: KETOROLAC TROMETHAMINE 15 MG/ML VIAL IV PRN ×2 (03:13→22:46)
[2021-03-07] MEDS: LEVOTHYROXINE SODIUM 125 MCG TABLET PO SCH (04:56)
[2021-03-07] MEDS: MoRPHine SULFATE IR 15 MG TAB (IMMEDIATE RELEASE) PO PRN ×2 (04:56→20:12)
[2021-03-07 05:40] LABS: Amphetamines+Metham, Urine Neg (Neg); Barbiturates, Urine Neg (Neg); Benzodiazepine, Urine Neg (Neg); Cocaine, Urine Neg (Neg); MDMA (Ecstacy), Urine Pos (Neg); Methadone, Urine Neg (Neg); Opiate, Urine Pos (Neg); Phencyclidine, Urine Neg (Neg)
[2021-03-07] MEDS: DULoxetine HCL 30 MG CAP PO SCH (09:02)
[2021-03-07] MEDS: DULoxetine HCL 60 MG CAP PO SCH (09:02)
[2021-03-07] MEDS: LIDOCAINE 5% 1 PATCH TD SCH (10:48)
[2021-03-07 11:10] LABS: Basophils # (auto) 0.02 K/uL (0-0.2); Basophils % (auto) 0.2 %; Eosinophils # (auto) 0.12 K/uL (0-0.5); Hematocrit (blood only) 44.2 % (37-47); Hemoglobin 14.3 g/dL (12.0-16.0); Immature Granulocytes # (auto) 0.03 K/uL (0.00-0.02); Immature Granulocytes % (auto) 0.3 %; Lymphocytes # (auto) 2.77 K/uL (1.2-3.4); Lymphocytes % (auto) 23.9 %; Mean Corpuscular Hemoglobin 29.7 pg (25-34); Mean Corpuscular Hgb Conc 32.4 g/dL (32-36); Mean Corpuscular Volume 91.9 fL (80-100); Mean Platelet Volume 10.3 fL (7.4-10.4); Monocytes # (auto) 0.98 K/uL (0.11-0.59); Monocytes % (auto) 8.5 %; Neutrophils # (auto) 7.67 K/uL (1.4-6.5); Neutrophils % (auto) 66.1 %; Platelet Count 234 K/uL (130-400); RDW Coefficient of Variation 14.8 % (11.5-14.5); RDW Standard Deviation 50.3 fL (36.4-46.3); Red Blood Count 4.81 M/uL (4.2-5.4); White Blood Count 11.59 K/uL (4.8-10.8)
[2021-03-07 11:38] LABS: BUN Creatinine Ratio 12.9 (10-20); Calcium 9.3 mg/dl (8.5-10.1); Creatinine Clr Calc Pharmacy 89.8 ml/min; Est GFR (African American) 73.1 ml/min; Potassium 3.5 mmol/L (3.5-5.1)
--- NOTE | 2021-03-07 19:49 | Electrocardiogram Report ---
Test Reason : Blood Pressure : / mmHG Vent. Rate : 074 BPM Atrial Rate : 074 BPM P-R Int : 168 ms QRS Dur : 076 ms QT Int : 376 ms P-R-T Axes : 050 025 046 degrees QTc Int : 417 ms Normal sinus rhythm Low voltage QRS Borderline ECG When compared with ECG of 06-MAR-2021 11:19, (unconfirmed) No significant change was found Confirmed by Vinh Waters ([id number]) on 03/07/2021 7:48:48 PM Referred By: REFERRED SELF Confirmed By:Vinh Waters
[2021-03-08] MEDS: LEVOTHYROXINE SODIUM 125 MCG TABLET PO SCH (06:13)
[2021-03-08] MEDS ORDERED: LORazepam 0.5 MG TAB PO PRN (08:43)
[2021-03-08] MEDS ORDERED: lisinopril 2.5 MG TAB PO SCH (09:00)
[2021-03-08] MEDS ORDERED: levETIRAcetam 250 MG TAB PO SCH (09:00)
[2021-03-08] MEDS: DULoxetine HCL 60 MG CAP PO SCH (09:03)
[2021-03-08] MEDS: DULoxetine HCL 30 MG CAP PO SCH (09:03)
[2021-03-08] MEDS: MoRPHine SULFATE CR 15 MG TABCR PO SCH ×2 (09:03→14:14)
--- NOTE | 2021-03-08 09:20 | Pain Management Consultation ---
Date of Consultation March 08, 2021 Assessment & Plan (1) Bulging lumbar disc: (2) Intractable low back pain: (3) Chronic, continuous use of opioids: (4) Depression: (5) Fibromyalgia: (6) Anxiety: 1. Lumbar spine CT 02/02/2021 shows possible small extruded fragment at L4-5 to the right. Recommend repeat MRI imaging of the lumbar spine without contrast to better delineate anatomy. Orders are written 2. As patient is anaphylactic to gabapentin will defer using pregabalin and plan for Keppra 250 mg p.o. twice daily to help with neuropathic pain. LFTs obtained from 03/24/21 are within normal limits. Orders are written 3. Recommend course of physical therapy as an outpatient. This has been discussed with the patient multiple times and she has not yet started outpatient physical therapy since November 2020. We discussed the role of deconditioning and her ongoing pain. 4. Patient has been on stable amount of MS Contin and MSIR since at least March 2019 as per the PDMP. Recommend utilization of home Narcan and opiate contract with urine drug screening as an outpatient. 5. We will follow up with the patient after MRI has been obtained. History of Present Illness Attending Physician: Michael Corrales MD History of Present Illness 50-year-old female that returns for a fifth admission regarding low back pain. In November she fell off of her sister's porch and had been having acute on chronic back pain. 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 She states that she has 50% axial to 50% right greater than left radicular symptoms along L4 and L5. She denies any bowel or bladder incontinence, motor weakness, footdrop, fever, chills, night sweats. She has been recommended to participate in outpatient physical therapy since November 2020 but has failed to do so. She is chronically on MS Contin 15 mg 3 times daily and MSIR 15 mg twice daily for pain relief since at least March 2019 per the PDMP. Additionally, she utilizes Cymbalta 90 mg daily and Baclofen 10mg twice daily if needed. Oral steroids, tramadol, and gabapentin have been additionally tried in the past. She reports her pain progresses to the point where it is severe and she vomits being unable to keep her opiates ingested. She has an outpatient pain physician Dr. Barr who she saw at the end of November 2020 but deferred epidural steroid injections at this point (she had epidural steroid injections performed in the past). She has not seen him since that time. She is not a surgical candidate as per orthospine on 02/03/2021. She denies any acute injury as to the etiology of her 3 emergency room visits in the last 48 hours. Pain Assessment Full Body Front + Back: 1. 2. 3. [facility] Combined Pain Scale: 6-Mod to Severe - Significant limitations of ADLs. Hard to do anything Pain scale - at its best (0-10): 6 Pain scale - at its worst (0-10): 9 Allergies Allergy/AdvReac Type Severity Reaction Status Date / Time gabapentin Allergy Severe anaphylaxis Verified 03/06/21 20:32 tramadol Allergy Severe ANAPHYLAXIS Verified 03/06/21 20:32 chlorpheniramine Allergy Intermediate SHORTNESS Verified 03/06/21 20:32 OF BREATH guaifenesin Allergy Intermediate SHORTNESS Verified 03/06/21 20:32 OF BREATH metoclopramide AdvReac Intermediate anxiety Verified 03/06/21 20:32 Home Medications Medication Instructions Recorded Confirmed Type furosemide 40 mg tablet (Lasix) 40 mg PO QAM PRN 03/17/18 03/06/21 History nitroglycerin 0.4 mg sublingual 0.4 mg SUBLINGUAL DIRECTED PRN 03/17/18 03/06/21 History tablet (Nitrostat) morphine 15 mg tablet,extended 15 mg PO TID 10/06/18 03/06/21 History release (MS Contin) levothyroxine 125 mcg tablet 250 mcg PO QAM 12/28/19 03/06/21 History (Synthroid) morphine 15 mg immediate release 15 mg PO TID PRN 12/28/19 03/06/21 History tablet aspirin 81 mg tablet,delayed 81 mg PO QAM 09/23/20 03/06/21 History release (Aspirin Low Dose) duloxetine 60 mg capsule,delayed 60 mg PO QAM 09/24/20 03/06/21 History release (Cymbalta) metformin 500 mg tablet,extended 500 mg PO QDL 09/24/20 03/06/21 History release 24 hr duloxetine 30 mg capsule,delayed 30 mg PO QAM 11/15/20 03/06/21 History release (Cymbalta) polyethylene glycol 3350 17 17 g PO DAILY PRN 11/15/20 03/06/21 History gram/dose oral powder (Miralax) acetaminophen 500 mg tablet 1,000 mg PO Q6H PRN 11/16/20 03/06/21 History (Tylenol Extra Strength) ibuprofen 200 mg tablet (Advil) 400 mg PO Q6H PRN 11/16/20 03/06/21 History baclofen 10 mg tablet 10 mg PO BID PRN 01/06/21 03/06/21 History celecoxib 200 mg capsule (Celebrex) 200 mg PO BID PRN 01/06/21 03/06/21 History promethazine 25 mg tablet 25 mg PO Q6H PRN 03/06/21 03/06/21 History Pain History Pain Intensity Pain scale - at its best (0-10): 6 Pain scale - at its worst (0-10): 9 Patient History Medical History (Updated 03/08/21 @ 09:17 by Lindsey Martinez DO) Acute exacerbation of chronic low back pain Anxiety Atelectasis Back pain Bulging lumbar disc Small broad-based posterior disc bulge with a small right paracentral focal disc protrusion Cardiomyopathy 2014 - thought to be stress induced, reported normal dobutamine stress and echo after Chronic back pain Chronic pain syndrome Depression Fibromyalgia H/O traumatic brain injury Hypokalemia Hypothyroidism (Unknown) IBS (irritable bowel syndrome) Intractable back pain Intractable nausea and vomiting Migraines Opiate dependence Tobacco abuse Surgical History (Updated 03/08/21 @ 09:17 by Lindsey Martinez DO) Bilateral tubal ligation (Unknown) section (Unknown) H/O colonoscopy "2006 path normal" H/O cystoscopy H/O esophagogastroduodenoscopy "2006 path normal" Hx of appendectomy Hx of cholecystectomy Hx of hysterectomy S/P lymph node biopsy "deep cervical inflammatory node 2007" Family History Other Diabetes Hypertension Thyroid disorder Social History Smoking Status: Current every day smoker Tobacco Type: Cigarettes Cigarettes Per Day: 10; Second Hand Exposure: Yes; Do You Dip or Chew Tobacco: No; Tobacco Cessation Education Requested by Patient: No Hx Alcohol Use: No Hx Substance Use: No Preferred Language: Romansh Communication Ability: Effective Visual Impairment: Partially Limited Audio/Visual Operator Required: No Beliefs That Will Affect Care: None marital status: Current Living Situation: Spouse and Family Current Living Situation Comment: grandson Other Information That Helps Us Care for You: No Feels Safe at Home: Yes Safety Concerns: Feels Safe At This Time Assistive Devices: None Physical Exam Physical Exam: Constitutional: Well-developed, well-nourished, healthy- appearing, obese, sleeping on entrance to the room. Psych: Patient was sleeping on entrance to the room but easily awoke to voice and then was awake, alert, and oriented 3 with normal affect and mood. Recent memory appears grossly intact Eyes: Pupils are equally round and reactive to light with normal size pupils, eyelids appear normal Ear, nose, mouth, and throat: Moist nasal and oral membranes, lips and tongues appear normal, no external ear abnormalities are noted Neck: The trachea is midline without deviation and no thyromegaly is noted Respiratory: Normal respiratory effort without distress, no audible wheezes or rhonchi CV: Normal S1 and S2, 2+ dorsalis pedis and posterior tibial pulses bilaterally Chest: Deferred Musculoskeletal: Head is normocephalic and atraumatic, gait not observed but patient easily logrolled in bed without difficulty Cervical: Lordotic curve: Normal Range of motion is normal with extension, flexion, side-bending, rotation Strength: Strength is grossly equal bilaterally with 5 out of 5 strength in all planes Thoracic: Kyphotic curve: Normal Range of motion is normal with extension, flexion, side-bending, rotation Lumbar: Lordotic curve: Slight exaggeration of typical lordotic curve Range of motion is slightly decreased with extension, adequate flexion, side- bending, rotation Tenderness: Nontender over the axial midline Facet provocation: Negative bilaterally Straight leg raise: Negative bilaterally, not worse with Achilles stretch Step-off injuries: None Strength: Strength is equal bilaterally with 5 out of 5 strength in all planes Sensation of lower extremities: Intact bilaterally Deep tendon reflexes: Rated at 2+ in bilateral L4 and S1 Myofascial spasm: No appreciable spasm. No discrete trigger points noted Greater trochanters: Nontender bilaterally Sacroiliac joints: Nontender bilaterally Pathologic reflexes noted: None Skin: No rashes, lesions, ulcers, or induration noted Neuro: No nystagmus noted, the tongue is midline, the patient is able to rotate their head bilaterally : Deferred Results (Pain [facility]) Diagnostic Review MRI: non enhanced, reports reviewed and findings discussed with patient MRI Findings: 11/05/20 LUMBAR SPINE MRI HISTORY: Fall. lower back pain TECHNIQUE: Multiplanar multisequence MRI of the lumbar spine was performed without the use of contrast. COMPARISON: Lumbar spine CT 11/15/2020. FINDINGS: For the purpose of the report the L5-S1 disc space will be located on axial image 23 of 26. No fracture or subluxation. The conus terminates at the L1 level. Paravertebral soft tissues are unremarkable. Mild disc space narrowing and disc desiccation at L4-L5. The remaining disc spaces are preserved. L1-L2: No significant central canal or neural foraminal narrowing. L2-L3: No significant central canal or neural foraminal narrowing. L3-L4: No significant central canal or neural foraminal narrowing. L4-L5: Small broad-based posterior disc bulge with a small right paracentral focal disc protrusion. This abuts but does not displace the transiting right L5 nerve root. There is also mild bilateral neural foraminal narrowing at this level. L5-S1: No significant central canal or neural foraminal narrowing. IMPRESSION: 1. No fracture or subluxation within the lumbar spine. 2. Small right paracentral focal disc protrusion at L4-5 which abuts but does not displace the transiting right L5 nerve root. CT: non enhanced, reports reviewed and findings discussed with patient CT Findings: 02/02/21 CT SCAN OF THE LUMBAR SPINE WITHOUT IV CONTRAST CLINICAL HISTORY: Fall. Low back pain. COMPARISON STUDY: Lumbar spine CT dated 11/17/2020. CT and MRI of the lumbar spine dated 11/15/2020. TECHNIQUE: CT scan of the lumbar spine is performed from the lower thoracic spine to the sacrum. Images are reviewed in the axial, sagittal, and coronal planes. IV contrast was not administered for this examination. A dose lowering technique was utilized adhering to the principles of ALARA. CT DOSE: 689.55 mGycm FINDINGS: The skeletal structures are well mineralized. There is no evidence of fracture or malalignment involving the lumbar spine. Vertebral body height and alignment are maintained. The transverse and spinous processes appear intact. There is no spondylolysis. No lytic or blastic lesion is seen. The disc spaces are maintained. Posterior disc bulge eccentric to the right is again seen at L4- L5. There may be a small laterally extruded fragment seen on axial image #211. There is no CT evidence of high-grade central canal stenosis. The visualized sacrum and bony pelvis appear intact. The paraspinous soft tissues are within normal limits. IMPRESSION: 1. No osseous abnormality is identified involving the lumbar spine. 2. Degenerative disc disease at L4-L5 is similar to previous. Previous Records Review Previous Records: personally reviewed by me Drug Testing Testing Type: Urine (Positive for opiates and MDMA, awaiting final qualitative analysis.)
--- NOTE | 2021-03-08 10:02 | Magnetic Resonance Report ---
MR lumbar spine wo con INDICATION: Lumbar radiculopathy TECHNIQUE: 3 plane localizer images, sagittal T2, sagittal T1, sagittal STIR, axial T1, axial T2 matthew g with postcontrast axial T1 and sagittal T1 fat-saturated sequences were obtained of the lumbar spin e, before and after intravenous administration of 12 mL of MultiHance. Comparison: None available at the time of this dictation. FINDINGS: The alignment is anatomical. Disc desiccation is seen most prominent at L4-L5. L1-L2: No neuroforaminal or canal stenosis. L2-L3: No neuroforaminal or canal stenosis. L3-L4: No neuroforaminal or canal stenosis. L4-L5: There is a small posterior disc bulge which results in mild canal stenosis. No neuroforaminal stenosis is seen. L5-S1: No neuroforaminal or canal stenosis. The spinal ligaments are intact, without evidence of disruption or abnormal signal intensity. The spi nal cord is normal in signal intensity and there is no evidence of cord contusion. There is no eviden ce of an extradural, intradural, extramedullary or intramedullary lesion. There is mild midline soft tissue edema which is nonspecific. IMPRESSION: Mild canal stenosis at L4-L5. No significant neuroforaminal stenosis. ACT 112: Negative or not required by law. Electronically signed by: Kendall Trinh M.D. 03/08/2021 10:01 AM
[2021-03-08] MEDS: LIDOCAINE 5% 1 PATCH TD SCH (10:21)
--- NOTE | 2021-03-08 14:01 | Hospitalist Progress Note ---
Date of Service March 07, 2021 Assessment & Plan (1) Recurrent low back pain: Plan: With radiculopathy symptoms Recurrent confinements for lumbar radiculopathy after traumatic injury from November 2020 Chronic pain/fibromyalgia on narcotics OBS [facility] Analgesia Judicious narcotic use Pain Management consulted Currently clinically improved, still some nausea however no more vomiting pain improved Acute gastroenteritis rule out C. difficile - no more diarrhea reported Situational hypertension secondary to illness, possible chronic BP elevation given LVH on 2D echo from last year Initiate lisinopril if with persistent BP duration Currently BP controlled primary hyperparathyroidism, [place] [facility] [place] hx cardiomyopathy as per records (EF 60 to 65%, TTE 2019), patient on the dry side Anxiety/mood disorder, symptoms at baseline as per patient Hypothyroidism, euthyroid as of recent TSH Prediabetes, hemoglobin A1c of 5.09 November 2020 Ongoing tobacco abuse Nicotine patch DVT prophylaxis. SCDs RE possible procedural intervention Full code Patient's , Mr. Ayush Schneider, contact #[phone]. Admission and Anticipated Discharge Date Admission Date: March 06, 2021 Subjective Patient seen in follow-up of back pain, nausea, reports nausea from pain Patient has recurrent admissions Currently says that she is feeling better, but wants to stay on clear diet for now No fevers, chills, chest pain, shortness of breath No urinary or bowel incontinence Pain management consulted Patient reports she would like to make an appointment in [facility] for endocrinology on Monday -as she is being waiting for that one for a long time Review of Systems Review of Systems: All systems reviewed & are unremarkable except as noted in Subjective Physical Exam Physical Exam: GENERAL: obese F, slightly uncomfortable however in no acute distress HEENT: NC/AT, [place] palpebral conjunctivae, no ptosis NECK : Supple, short neck, no tenderness CHEST : Decreased breath sounds, no tenderness HEART : RRR, no obvious murmurs ABDOMEN: Some distention, nontender, + bowel sounds BACK : Low back tenderness, straight leg raise test R>L EXTREMITIES : Minimal LE swelling, no LE tenderness, no other conspicuous deformities noted NEUROLOGIC : Coherent, no facial asymmetry, moves extremities SKIN: Normal color, warm
--- NOTE | 2021-03-08 14:06 | Hospitalist Progress Note ---
Date of Service March 08, 2021 Assessment & Plan (1) Recurrent low back pain: Plan: With radiculopathy symptoms Recurrent confinements for lumbar radiculopathy after traumatic injury from November 2020 Chronic pain/fibromyalgia on narcotics Analgesia Judicious narcotic use Currently clinically improved, pain improved, nausea / vomiting resolved Pain Management consulted - MRI ordered IMPRESSION: Mild canal stenosis at L4-L5. No significant neuroforaminal stenosis. Plan for epidural injection by pain management, will be scheduled as outpatient Acute gastroenteritis rule out C. difficile - no more diarrhea reported Situational hypertension secondary to illness, possible chronic BP elevation given LVH on 2D echo from last year Initiate lisinopril if with persistent BP duration Currently BP controlled primary hyperparathyroidism, patient [place] [facility] [place] hx cardiomyopathy as per records (EF 60 to 65%, TTE 2019), patient on the dry side Anxiety/mood disorder, symptoms at baseline as per patient Hypothyroidism, euthyroid as of recent TSH Prediabetes, hemoglobin A1c of 5.09 November 2020 Ongoing tobacco abuse Nicotine patch DVT prophylaxis. SCDs RE possible procedural intervention Full code Patient's , Mr. Ayush Schneider, contact #[phone]. Admission and Anticipated Discharge Date Admission Date: March 06, 2021 Subjective Patient seen in follow-up of back pain, nausea, reports nausea from pain Patient has recurrent admissions Currently says that she is feeling better Tolerating diet, no vomiting or nausea Able to ambulate to bathroom Had MRI done earlier today, ordered by pain management Pt denies fevers, chills, chest pain, shortness of breath Also denies urinary or bowel incontinence Discussed w/ pain management -plan for epidural injection, patient has an appointment tomorrow (which she does not want to miss), will schedule as outp atient Patient reports she would like to make an appointment in [facility] for endocrinology on Monday -as she has being waiting for that one for a long time Review of Systems Review of Systems: All systems reviewed & are unremarkable except as noted in Subjective Physical Exam Physical Exam: GENERAL: obese F, slightly uncomfortable however in no acute distress HEENT: NC/AT, [place] palpebral conjunctivae, no ptosis NECK : Supple, short neck, no tenderness CHEST : Decreased breath sounds, no tenderness HEART : RRR, no obvious murmurs ABDOMEN: Some distention, nontender, + bowel sounds BACK : Low back tenderness EXTREMITIES : Minimal LE swelling, no LE tenderness, moves extremities NEUROLOGIC : Coherent, no facial asymmetry, moves extremities SKIN: Normal color, warm Results & Data Results & Data ([facility]) Vital Signs (Past 12 Hours) Vital Signs Temp Pulse Resp BP Pulse Ox 03/08/21 07:47 36.9 C 66 18 118/62 94 Medications Administered Current Inpatient Medications Acetaminophen (Acetaminophen 325 Mg Tab) 650 mg PO Q4H PRN PRN Reason: pain/fever Stop: 04/06/21 02:12 Baclofen (Baclofen 10 Mg Tab) 10 mg PO BID PRN PRN Reason: Muscle Spasm Stop: 04/06/21 02:12 Celecoxib (Celebrex 200 Mg Cap) 200 mg PO BID PRN PRN Reason: Pain Stop: 04/06/21 02:12 Duloxetine HCl (Duloxetine Hcl 60 Mg Cap) 60 mg PO QAM [facility] Stop: 04/06/21 08:59 Last Admin: 03/08/21 09:03 Dose: 60 mg Documented by: Duloxetine HCl (Duloxetine Hcl 30 Mg Cap) 30 mg PO QAM [facility] Stop: 04/06/21 08:59 Last Admin: 03/08/21 09:03 Dose: 30 mg Documented by: Promethazine HCl 12.5 mg/ (Sodium Chloride) 50.5 mls @ 202 mls/hr IV Q6H PRN PRN Reason: Nausea And Vomiting Stop: 04/06/21 02:12 Last Infusion: 03/07/21 03:47 Dose: Infused Documented by: Ketorolac Tromethamine (Ketorolac Tromethamine 15 Mg/Ml Vial) 15 mg IV Q6H PRN PRN Reason: Pain Stop: 03/11/21 22:20 Last Admin: 03/07/21 22:46 Dose: 15 mg Documented by: Levetiracetam (Levetiracetam 250 Mg Tab) 250 mg PO BID [facility] Stop: 04/07/21 08:59 Last Admin: 03/08/21 10:21 Dose: 250 mg Documented by: Levothyroxine Sodium (Levothyroxine Sodium 125 Mcg Tablet) 250 mcg PO DAILYBB [facility] Stop: 04/06/21 06:29 Last Admin: 03/08/21 06:13 Dose: 250 mcg Documented by: Lidocaine (Lidocaine 5% 1 Patch) 1 patch TD QAM [facility] Stop: 04/06/21 08:59 Last Admin: 03/08/21 10:21 Dose: Not Given Documented by: Lisinopril (Lisinopril 2.5 Mg Tab) 2.5 mg PO QAM [facility] Stop: 04/07/21 08:59 Last Admin: 03/08/21 09:03 Dose: 2.5 mg Documented by: Lorazepam (Lorazepam 0.5 Mg Tab) 0.5 mg PO ONE PRN PRN Reason: prior to MRI Stop: 04/07/21 08:42 Miscellaneous (Remove Lidoderm Patch) 1 ea N/A DAILY@2100 [facility] Stop: 04/06/21 02:59 Last Admin: 03/07/21 20:16 Dose: 1 ea Documented by: Morphine Sulfate (Morphine Sulfate Cr 15 Mg Tabcr) 15 mg PO TID [facility] Stop: 03/21/21 02:44 Last Admin: 03/08/21 09:03 Dose: 15 mg Documented by: Morphine Sulfate (Morphine Sulfate Ir 15 Mg Tab (Immediate Release)) 15 mg PO TID PRN PRN Reason: Pain Stop: 03/21/21 02:12 Last Admin: 03/07/21 20:12 Dose: 15 mg Documented by: Ondansetron HCl (Ondansetron Inj 2 Mg/Ml 2 Ml Vial) 4 mg IV Q6H PRN PRN Reason: Nausea And Vomiting Stop: 04/06/21 02:12 Last Admin: 03/07/21 13:00 Dose: 4 mg Documented by: Polyethylene Glycol (Polyethylene (Miralax) 17 Gm Pack) 17 gm PO DAILY PRN PRN Reason: Constipation Stop: 04/06/21 02:12
--- NOTE | 2021-03-08 14:15 | Discharge Summary ---
Date of Service March 08, 2021 Admission HPI Per Admitting Provider History obtained from patient, family, and records. Medical history significant for chronic pain/fibromyalgia as per records, IBS as per records, primary hyperparathyroidism, anxiety/mood disorder, past history cardiomyopathy (TTE 60 to 65%, TTE 2019), hypothyroidism, prediabetes, ongoing tobacco abuse. Patient fell from her sister's porch 3 months ago. Five hospital confinements since accident for intractable back pain - last one from February 04-2020. Physical therapy recommended by [facility]. 03/05 Patient noted worsening of chronic low back pain with radiation to both feet without unusual weakness, numbness, incontinence. No fever, no chills. No recent trauma. Patient later noted nausea vomiting diarrhea symptoms without abdominal pain. She could not keep her morphine down. Patient brought by to the ER but subsequently discharged. 03/06 Patient returned to ER for transient chest pain and persistent back pain symptoms Patient discharged home after negative work-up. Patient returned to ER with intractable back pain complaints. Medical History as above : Surgical History : Cervical lymph node biopsy, section, cystoscopy, appendectomy, BTL, partial hysterectomy, cholecystectomy Family History : Crohn's disease Personal/Social history : One pack daily, no EtOH intake, disabled Admission Exam Per Admitting Provider GENERAL: uncomfortable, obese, no respiratory distress SKIN: Normal color, warm HEENT: [place] palpebral conjunctivae, no ptosis, dry buccal mucosa NECK : Supple, short neck, no tenderness CHEST : Decreased breath sounds, no tenderness HEART : RRR, no obvious murmurs ABDOMEN: Some distention, nontender BACK : Low back tenderness, straight leg raise test R>L EXTREMITIES : Minimal LE swelling, no LE tenderness, no other conspicuous deformities noted NEUROLOGIC : Coherent, no facial asymmetry, no other gross focality Principal Diagnosis Recurrent back pain Discharge Exam GENERAL: obese F, slightly uncomfortable however in no acute distress HEENT: NC/AT, [place] palpebral conjunctivae, no ptosis NECK : Supple, short neck, no tenderness CHEST : Decreased breath sounds, no tenderness HEART : RRR, no obvious murmurs ABDOMEN: Some distention, nontender, + bowel sounds BACK : Low back tenderness EXTREMITIES : Minimal LE swelling, no LE tenderness, moves extremities NEUROLOGIC : Coherent, no facial asymmetry, moves extremities SKIN: Normal color, warm Discharge Data Allergies Allergy/AdvReac Type Severity Reaction Status Date / Time gabapentin Allergy Severe anaphylaxis Verified 03/06/21 20:32 tramadol Allergy Severe ANAPHYLAXIS Verified 03/06/21 20:32 chlorpheniramine Allergy Intermediate SHORTNESS Verified 03/06/21 20:32 OF BREATH guaifenesin Allergy Intermediate SHORTNESS Verified 03/06/21 20:32 OF BREATH metoclopramide AdvReac Intermediate anxiety Verified 03/06/21 20:32 Consultations 03/06/21 23:32 Consult Pain Management Routine Ordered Studies 03/06/21 19:46 CT abd pelvis IV con only Stat 03/08/21 08:27 MR lumbar spine wo con Routine Hospital Course (1) Recurrent low back pain: With radiculopathy symptoms Recurrent confinements for lumbar radiculopathy after traumatic injury from November 2020 Chronic pain/fibromyalgia on narcotics Analgesia Judicious narcotic use Currently clinically improved, pain improved, nausea / vomiting resolved Pain Management consulted - MRI ordered IMPRESSION: Mild canal stenosis at L4-L5. No significant neuroforaminal stenosis. Plan for epidural injection by pain management, will be scheduled as outpatient Acute gastroenteritis rule out C. difficile - no more diarrhea reported Situational hypertension secondary to illness, possible chronic BP elevation given LVH on 2D echo from last year Initiate lisinopril if with persistent BP duration Currently BP controlled primary hyperparathyroidism, patient follows with [facility] [place] hx cardiomyopathy as per records (EF 60 to 65%, TTE 2019), patient on the dry side Anxiety/mood disorder, symptoms at baseline as per patient Hypothyroidism, euthyroid as of recent TSH Prediabetes, hemoglobin A1c of 5.09 November 2020 Ongoing tobacco abuse Nicotine patch DVT prophylaxis. SCDs RE possible procedural intervention Full code Patient's , Mr. Ayush Schneider, contact #[phone]. Total Time Total Time Spent Total Time Spent (In Minutes): 35 Discharge Plan Discharge Items Patient Disposition: Home - Self-Care Reason For Visit: BACK PAIN Discharge Diagnosis: Recurrent back pain Activity: Per Instructions section Non-emergency contact: Primary Care Provider Call non-emergency contact if: you have any medication questions and your symptoms worsen Follow-up/Referrals: Dajuan Bell, [Primary Care Provider] - (Date & Time 03/15/2021 11:00 AM Provider Gerry Lees III, MD [employer] ) Diet: Regular Addtl Attending Provider Instructions: You will be contacted by Dr. Martinez's office, pain management, for epidural injection as discussed. After that please follow-up with your primary care doctor, the appointment was scheduled for you for March 15. Pending Studies at Discharge: No Stand-Alone Forms: My [facility], Smoking Cessation Medications and DC Order Prescriptions: Continued furosemide [Lasix] 40 mg Tablet 40 mg PO QAM PRN (Reason: Edema) RF: 0 nitroglycerin [Nitrostat] 0.4 mg Tablet, Sublingual 0.4 mg Sublingual DIRECTED PRN (Reason: Chest Pain) RF: 0 morphine [MS Contin] 15 mg tablet extended release 15 mg PO TID RF: 0 morphine 15 mg tablet 15 mg PO TID PRN (Reason: Pain) RF: 0 levothyroxine [Synthroid] 125 mcg tablet 250 mcg PO QAM RF: 0 aspirin [Aspirin Low Dose] 81 mg Tablet,Delayed Release (Dr/Ec) 81 mg PO QAM RF: 0 metformin 500 mg tablet extended release 24 hr 500 mg PO QDL RF: 0 duloxetine [Cymbalta] 60 mg capsule,delayed release(DR/EC) 60 mg PO QAM RF: 0 baclofen 10 mg tablet 10 mg PO BID PRN (Reason: Muscle Spasm) RF: 0 celecoxib [Celebrex] 200 mg capsule 200 mg PO BID PRN (Reason: Pain) RF: 0 polyethylene glycol 3350 [Miralax] 17 gram/dose Powder 17 g PO DAILY PRN (Reason: Constipation) RF: 0 duloxetine [Cymbalta] 30 mg capsule,delayed release(DR/EC) 30 mg PO QAM RF: 0 acetaminophen [Tylenol Extra Strength] 500 mg Tablet 1,000 mg PO Q6H PRN (Reason: Pain) RF: 0 ibuprofen [Advil] 200 mg Tablet 400 mg PO Q6H PRN (Reason: Pain) RF: 0 promethazine 25 mg tablet 25 mg PO Q6H PRN (Reason: Nausea) RF: 0 Discharge Orders: Discharge Order (Routine); Ordered 03/08/21 Ordered By: Michael Corrales Admission Data Admit Date/Time: 03/06/21 22:16 Attending Provider: Michael Corrales Admit Provider: Ivan Hebert Primary Care Provider: Dajuan Bell Other Providers: Lindsey Martinez
[2021-03-13 16:37] LABS: Codeine Urine NEGATIVE ng/mL (<50); Hydrocodone Urine NEGATIVE ng/mL (<50); Hydromor Urine 335 ng/mL (<50); MDA negative; MDEA negative; MDMA (Ecstasy) Urine, Confirm negative; Morphine Urine 117 ng/mL (<50); Norhydrocodone Conf Ur NEGATIVE ng/mL (<50); Noroxycodone Urine NEGATIVE ng/mL (<50); Oxycodone Urine NEGATIVE ng/mL (<50); Oxymorph Urine NEGATIVE ng/mL (<50)
== END 2021-03-08 14:49 | disposition home or self-care (01) ==
LOC: 3N 19:19 → ED 19:19 → 3N 03-07 01:43

== ENCOUNTER 2021-09-02 19:25 | Observation (INO) ==
[~2021-09-02 19:25] MED LIST changes: -DSY/150 PO; -FRS/40 PO; -HYDR-3419 PO; +LABETALOL HCL IV 5 MG/ML 20ML IV PRN; -LEVO300T2 PO; -LIDO1PAD2 TD; -METH10TA PO; -MTH10 PO; -NTRGSL/4 UT; -RIZA10TA19 PO; +hydrALAZINE HCL 20 MG/ML VIAL IV PRN
[2021-09-02] MEDS ORDERED: SODIUM CHLORIDE 0.9% 1000ML 1,000 ML IV SCH (19:30)
[2021-09-02] MEDS ORDERED: OPTIRAY 320 125ml IV ONE (19:40)
--- NOTE | 2021-09-02 19:43 | CT Scan Report ---
CT head/brain wo con CLINICAL HISTORY: 51 years-old Female with Stroke Like Symptoms. Acute strokelike symptoms TECHNIQUE: Multiple axial CT images of the head were obtained without contrast. A dose lowering tech nique was utilized adhering to the principles of ALARA. COMPARISON: Head CT 11/15/2020 FINDINGS: No acute intracranial hemorrhage, midline shift, intracranial mass, hydrocephalus, territorial ischem ia or abnormal extra-axial collection. The calvarium is intact. The paranasal sinuses, mastoid air cells, and middle ear cavities are clear . IMPRESSION: No acute intracranial abnormality. ACT 112: Negative or not required by law. The above report was generated using voice recognition software. It may contain grammatical, syntax o r spelling errors. Electronically signed by: Shiv Lopez M.D. 09/02/2021 7:40 PM
[2021-09-02] MEDS ORDERED: ONDANSETRON INJ 2 MG/ML 2 ML VIAL ONE (19:44)
[2021-09-02] MEDS ORDERED: ONDANSETRON INJ 2 MG/ML 2 ML VIAL IV STA (19:48)
[2021-09-02] MEDS ORDERED: MoRPHine SULFATE 2 MG/ML CARP IV STA ×2 (19:50→20:50)
[2021-09-02] MEDS ORDERED: dexAMETHasone**PF** 10 MG/ML VIAL IV ONE (19:57)
[2021-09-02] MEDS ORDERED: diphenhydrAMINE 50 MG/ML VIAL IV STA (19:57)
--- NOTE | 2021-09-02 20:06 | Emergency Department Note ---
History of Present Illness General Chief complaint: Stroke Alert Stated complaint: Stroke History of Present Illness Maximum Pain Intensity: 10 51-year-old female presents to the ED with a chief complaint of change in mental status as well as some left-sided weakness. She was last known well at 1500 hrs. today. She had been complaining of a migraine for years, according to the . She was not feeling well. The patient was found then by her son around 6:30 PM. She was altered and not very responsive. EMS arrived on scene and requested a stroke alert as the patient had left-sided flaccidity and a facial droop. The patient's blood sugar prehospital was unremarkable. Her vital signs revealed hypertension prehospital as well. She does have a history of smoking. Also anxiety and depression. She has chronic low back pain as well as migraines. She does have chronic opioid use. The patient complains of a headache and some low back pain upon her arrival. Her speech is somewhat difficult to understand and occasionally garbled. The was present upon her arrival. Home Medications Medication Instructions Recorded Confirmed Type baclofen 10 mg tablet 10 mg PO TID PRN 09/02/21 09/02/21 History celecoxib 200 mg capsule 200 mg PO DAILY PRN 09/02/21 09/02/21 History duloxetine 30 mg capsule,delayed 30 mg PO DAILY 09/02/21 09/02/21 History release duloxetine 60 mg capsule,delayed 60 mg PO DAILY 09/02/21 09/02/21 History release furosemide 40 mg tablet (Lasix) 40 mg PO DAILY PRN 09/02/21 09/02/21 History levothyroxine 125 mcg tablet 250 mcg PO 6XWK 09/02/21 09/02/21 History levothyroxine 125 mcg tablet 375 mcg PO WK 09/02/21 09/02/21 History metformin 500 mg tablet,extended 500 mg PO DAILY 09/02/21 09/02/21 History release 24 hr morphine 15 mg immediate release 15 mg PO TID PRN 09/02/21 09/02/21 History tablet morphine 15 mg tablet,extended 15 mg PO TID 09/02/21 09/02/21 History release nitroglycerin 0.4 mg sublingual 0.4 mg SUBLINGUAL DIRECTED 09/02/21 09/02/21 History tablet ondansetron 8 mg disintegrating 8 mg TRANSLINGUAL Q8 PRN 09/02/21 09/02/21 History tablet polyethylene glycol 3350 17 gram 17 g PO DAILY PRN 09/02/21 09/02/21 History oral powder packet (Miralax) promethazine 25 mg tablet 25 mg PO Q6 PRN 09/02/21 09/02/21 History trazodone 50 mg tablet 100 mg PO HS 09/02/21 09/02/21 History Allergies Allergy/AdvReac Type Severity Reaction Status Date / Time gabapentin Allergy Severe anaphylaxis Verified 03/22/21 10:40 tramadol Allergy Severe ANAPHYLAXIS Verified 03/22/21 10:40 chlorpheniramine Allergy Intermediate SHORTNESS Verified 03/22/21 10:40 OF BREATH guaifenesin Allergy Intermediate SHORTNESS Verified 03/22/21 10:40 OF BREATH Sulfa (Sulfonamide Allergy Unknown Verified 09/02/21 21:13 Antibiotics) metoclopramide AdvReac Intermediate anxiety Verified 09/02/21 21:13 aspirin AdvReac TINNITUS Verified 09/02/21 21:13 Corticosteroids AdvReac Agitated Verified 09/02/21 21:13 (Glucocorticoids) SYMPATHOMIMETICS Allergy Unknown Uncoded 09/02/21 21:13 Past Med/Surg History Medical History Acute exacerbation of chronic low back pain Anxiety Atelectasis Back pain Bulging lumbar disc Small broad-based posterior disc bulge with a small right paracentral focal disc protrusion Cardiomyopathy 2014 - thought to be stress induced, reported normal dobutamine stress and echo after Chronic back pain Chronic pain syndrome Depression Fibromyalgia H/O traumatic brain injury Hypokalemia Hypothyroidism (Unknown) IBS (irritable bowel syndrome) Intractable back pain Intractable nausea and vomiting Migraines Opiate dependence Tobacco abuse Surgical History Bilateral tubal ligation (Unknown) section (Unknown) H/O colonoscopy "2006 path normal" H/O cystoscopy H/O esophagogastroduodenoscopy "2006 path normal" History of knee surgery Hx of appendectomy Hx of cholecystectomy Hx of hysterectomy S/P lymph node biopsy "deep cervical inflammatory node 2007" Family History Other Diabetes Hypertension Thyroid disorder Social History (Reviewed 09/02/21 @ 20:02 by BATOOL Hutchison Smoking Status: Current every day smoker Tobacco Type: Cigarettes Cigarettes Per Day: 10; Second Hand Exposure: Yes; Hx Alcohol Use: No Hx Substance Use: No Preferred Language: Palauan Communication Ability: Effective Visual Impairment: Partially Limited 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 Beliefs That Will Affect Care: None marital status: / Current Living Situation: Spouse and Family Current Living Situation Comment: grandson Feels Safe at Home: Yes Assistive Devices: Cane and Walker Review of Systems A total of 10 systems reviewed and were otherwise negative Physical Exam Vital Signs Vital Signs - 24 hr 09/02/21 19:47 09/02/21 19:48 09/02/21 20:40 Respiratory Rate 20 18 16 Blood Pressure 166/66 H Blood Pressure [Right Arm] 141/75 H Blood Pressure Mean 99 Blood Pressure Mean [Right Arm] 97 Blood Pressure Position [Right Arm] Semi-fowlers Pulse Oximetry 94 97 97 Oxygen Delivery Method Room Air Room Air Nasal Cannula Oxygen Flow Rate 2 Sepsis Recent Fever Within 48 Hours No Sepsis New/Unexplained Change in Mental Status Yes Sepsis Action Taken by Nursing No Action Required Pulse Oximetry Post Tiitration 97 CONSTITUTIONAL/VITAL SIGNS: Reviewed / noted above. GENERAL: Upon the patient's arrival to the ED, she had some nausea and vomiting. INTEGUMENTARY: Warm, dry, and [place]. The patient does have a macular rash on the thighs and on the back. This possibly could be related to the IV contrast. HEAD: Normocephalic. EYES: without scleral icterus or trauma. ENT/OROPHARYNX: clear and moist. LYMPHADENOPATHY/NECK: Is supple without lymphadenopathy or meningismus. RESPIRATORY: Clear to auscultation bilaterally. No increased work of breathing. CARDIOVASCULAR: Regular rate and rhythm. GI/ABDOMEN: Soft and nontender. No organomegaly or pulsatile mass. EXTREMITIES: Warm and well perfused. BACK: No CVA tenderness. NEUROLOGICAL: The patient is awake but not alert. Pupils are normal size and reactive light. Extraocular motion is intact. No obvious facial droop on my exam. The left arm seems to be somewhat weak but not flaccid. The right leg is weak but is much stronger than the left. She is able to hold up for several seconds against gravity. The bilateral lower extremities are weak left greater than right. She is unable to filler picker either extremity off of the bed. Her speech is not very clear but she does answer some questions appropriately. Other times her speech appears garbled. PSYCHIATRIC: Unable to assess MUSCULOSKELETAL: Normally developed with obesity TRIAGE NURSING DOCUMENTATION REVIEWED. Course Administered Medications Sodium Chloride (Nss 1000ml) 1,000 mls @ 50 mls/hr IV .Q20H ANDREW Stop: 10/02/21 19:29 Last Admin: 09/02/21 20:09 Dose: 50 mls/hr Documented by: [id number] Discontinued Medications Dexamethasone Sodium Phosphate (DexamethasonePf 10 Mg/Ml Vial) 10 mg IV NOW ONE Stop: 09/02/21 19:58 Last Admin: 09/02/21 20:07 Dose: 10 mg Documented by: [id number] Diphenhydramine HCl (Diphenhydramine 50 Mg/Ml Vial) 25 mg IV NOW STA Stop: 09/02/21 19:58 Last Admin: 09/02/21 20:02 Dose: 25 mg Documented by: [id number] Prochlorperazine (Compazine) 2 mls @ 1 mls/min IV ONE ONE Stop: 09/02/21 20:51 Last Admin: 09/02/21 20:56 Dose: 1 mls/min Documented by: [id number] Ioversol (Optiray 320 125ml) 117 ml IV ONCE ONE Stop: 09/02/21 19:41 Last Admin: 09/02/21 19:40 Dose: 117 ml Documented by: [id number] Morphine Sulfate (Morphine Sulfate 2 Mg/Ml Carp) 2 mg IV NOW STA Stop: 09/02/21 19:51 Last Admin: 09/02/21 20:01 Dose: 2 mg Documented by: [id number] Morphine Sulfate (Morphine Sulfate 2 Mg/Ml Carp) 2 mg IV NOW STA Stop: 09/02/21 20:51 Last Admin: 09/02/21 20:56 Dose: 2 mg Documented by: [id number] Ondansetron HCl (Ondansetron Inj 2 Mg/Ml 2 Ml Vial) Confirm Administered Dose 4 mg .ROUTE .STK-MED ONE Stop: 09/02/21 19:45 Last Admin: 09/02/21 20:34 Dose: Not Given Documented by: [id number] Ondansetron HCl (Ondansetron Inj 2 Mg/Ml 2 Ml Vial) 4 mg IV NOW STA Stop: 09/02/21 19:49 Last Admin: 09/02/21 19:54 Dose: 4 mg Documented by: [id number] Critical Care Time Critical Care Time: Yes Total Critical Care Time: 30 I have personally spent 30 minutes of critical care time in the direct management of this patient. This includes bedside care, interpretation of diagnostic studies, and testing, discussion with consultants, patient, and family members, and other required patient management activities. This 30 mi nutes is in excess of all separately billable procedures. Medical Decision Making Differential Diagnosis Differential includes acute coronary syndrome, myocardial infarction, CVA, TIA, anemia, infection, pneumonia, UTI, pyelonephritis, poor nutrition, dehydration, electrolyte disturbance,hypoglycemia. Medical Records Attestation: I reviewed the patient's medical records. Home Medications Current Medication List: was personally reviewed by me Laboratory Data Attestation: I reviewed the patient's lab results. Result diagrams: 09/02/21 20:31 09/02/21 20:31 Lab Results 09/02/21 09/02/21 09/02/21 Range/Units 20:00 20:14 20:31 WBC 11.90 H (4.8-10.8) K/uL RBC 5.10 (4.2-5.4) M/uL Hgb 15.6 (12.0-16.0) g/dL Hct 46.1 (37-47) % MCV 90.4 (80-100) fL MCH 30.6 (25-34) pg MCHC 33.8 (32-36) g/dL RDW Std Deviation 45.8 (36.4-46.3) fL RDW Coeff of Roro 13.8 (11.5-14.5) % Plt Count 273 (130-400) K/uL MPV 10.8 H (7.4-10.4) fL Immature Gran % (Auto) 0.3 % Neut % (Auto) 70.0 % Lymph % (Auto) 25.6 % [place] % (Auto) 3.5 % Eos % (Auto) 0.4 % Baso % (Auto) 0.2 % Neut # (Auto) 8.32 H (1.4-6.5) K/uL Lymph # (Auto) 3.05 (1.2-3.4) K/uL [place] # (Auto) 0.42 (0.11-0.59) K/uL Eos # (Auto) 0.05 (0-0.5) K/uL Baso # (Auto) 0.02 (0-0.2) K/uL Immature Gran # (Auto) 0.04 H (0.00-0.02) K/uL PT (9.0-12.0) Seconds INR (0.9-1.1) APTT (21.0-31.0) Seconds PTT Ratio Sodium (136-145) mmol/L Potassium (3.5-5.1) mmol/L Chloride (98-107) mmol/L Carbon Dioxide (21-32) mmol/L Anion Gap (3-11) BUN (6-23) mg/dl Creatinine (0.6-1.2) mg/dl Est Cr Clr Drug Dosing ml/min Est GFR ( Amer) ml/min Est GFR (Non-Af Amer) ml/min BUN/Creatinine Ratio (10-20) Glucose (70-99(Fasting)) mg/dl POC Glucose 107 H (70-99) mg/dl Lactate (0.4-2.0) mmol/L Calcium (8.5-10.1) mg/dl Magnesium (1.7-2.4) mg/dl Total Bilirubin (0.2-1.0) mg/dl AST (13-39) U/L ALT (7-52) U/L Alkaline Phosphatase (34-104) U/L Troponin I (0-0.04) ng/ml Total Protein (6.0-8.3) gm/dl Albumin (3.4-5.0) gm/dl Globulin (2.5-4.0) gm/dl Albumin/Globulin Ratio (0.9-2) Urine Color Yellow Urine Appearance Clear (Clear) Urine pH 8.0 H (4.5-7.5) Ur Specific [place] 1.022 (1.000-1.030) Urine Protein Negative (Negative) Urine Glucose (UA) Negative (Negative) Urine Ketones Negative (Negative) Urine Blood 1+ H (Negative) Urine Nitrite Negative (Negative) Urine Bilirubin Negative (Negative) Urine Urobilinogen Negative (Negative) Ur Leukocyte Esterase Negative (Negative) Urine WBC (Auto) 0 (0-5) /hpf Urine RBC (Auto) 5-10 H (0-4) /hpf U Hyaline Cast (Auto) 1-5 (0-5) /lpf U Epithel Cells (Auto) 0-5 (0-5) /lpf Urine Bacteria (Auto) Negative (Negative) 09/02/21 09/02/21 09/02/21 Range/Units 20:31 20:31 20:31 WBC (4.8-10.8) K/uL RBC (4.2-5.4) M/uL Hgb (12.0-16.0) g/dL Hct (37-47) % MCV (80-100) fL MCH (25-34) pg MCHC (32-36) g/dL RDW Std Deviation (36.4-46.3) fL RDW Coeff of Roro (11.5-14.5) % Plt Count (130-400) K/uL MPV (7.4-10.4) fL Immature Gran % (Auto) % Neut % (Auto) % Lymph % (Auto) % [place] % (Auto) % Eos % (Auto) % Baso % (Auto) % Neut # (Auto) (1.4-6.5) K/uL Lymph # (Auto) (1.2-3.4) K/uL [place] # (Auto) (0.11-0.59) K/uL Eos # (Auto) (0-0.5) K/uL Baso # (Auto) (0-0.2) K/uL Immature Gran # (Auto) (0.00-0.02) K/uL PT 10.6 (9.0-12.0) Seconds INR 1.0 (0.9-1.1) APTT 28.3 (21.0-31.0) Seconds PTT Ratio 1.0 Sodium 137 (136-145) mmol/L Potassium 3.7 (3.5-5.1) mmol/L Chloride 106 (98-107) mmol/L Carbon Dioxide 23 (21-32) mmol/L Anion Gap 8 (3-11) BUN 14 (6-23) mg/dl Creatinine 0.81 (0.6-1.2) mg/dl Est Cr Clr Drug Dosing 116.3 ml/min Est GFR ( Amer) 98.2 ml/min Est GFR (Non-Af Amer) 84.7 ml/min BUN/Creatinine Ratio 17.3 (10-20) Glucose 114 H (70-99(Fasting)) mg/dl POC Glucose (70-99) mg/dl Lactate 1.0 (0.4-2.0) mmol/L Calcium 10.1 (8.5-10.1) mg/dl Magnesium 2.1 (1.7-2.4) mg/dl Total Bilirubin 0.4 (0.2-1.0) mg/dl AST 11 L (13-39) U/L ALT 8 (7-52) U/L Alkaline Phosphatase 96 (34-104) U/L Troponin I < 0.03 (0-0.04) ng/ml Total Protein 7.3 (6.0-8.3) gm/dl Albumin 4.1 (3.4-5.0) gm/dl Globulin 3.2 (2.5-4.0) gm/dl Albumin/Globulin Ratio 1.3 (0.9-2) Urine Color Urine Appearance (Clear) Urine pH (4.5-7.5) Ur Specific [place] (1.000-1.030) Urine Protein (Negative) Urine Glucose (UA) (Negative) Urine Ketones (Negative) Urine Blood (Negative) Urine Nitrite (Negative) Urine Bilirubin (Negative) Urine Urobilinogen (Negative) Ur Leukocyte Esterase (Negative) Urine WBC (Auto) (0-5) /hpf Urine RBC (Auto) (0-4) /hpf U Hyaline Cast (Auto) (0-5) /lpf U Epithel Cells (Auto) (0-5) /lpf Urine Bacteria (Auto) (Negative) Imaging Data Radiologist's Impression: Head CT 09/02/21 19:18 CT head/brain wo con CLINICAL HISTORY: 51 years-old Female with Stroke Like Symptoms. Acute strokelike symptoms TECHNIQUE: Multiple axial CT images of the head were obtained without contrast. A dose lowering technique was utilized adhering to the principles of ALARA. COMPARISON: Head CT 11/15/2020 FINDINGS: No acute intracranial hemorrhage, midline shift, intracranial mass, hydrocephalus, territorial ischemia or abnormal extra-axial collection. The calvarium is intact. The paranasal sinuses, mastoid air cells, and middle ear cavities are clear. IMPRESSION: No acute intracranial abnormality. ACT 112: Negative or not required by law. The above report was generated using voice recognition software. It may contain grammatical, syntax or spelling errors. Electronically signed by: Shiv Lopez M.D. 09/02/2021 7:40 PM Head CTA 09/02/21 19:18 CT angio neck with con, CT angio head w con CLINICAL HISTORY: 51 years-old Female with Stroke Like Symptoms. Acute strokelike symptoms COMPARISON STUDY: Head CT of same day TECHNIQUE: Following the IV administration of 117 mL of Optiray, CT angiogram of the head and neck was performed from the aortic arch to the skull base. Images are reviewed in the axial, sagittal, and coronal planes. 3-D MIPS images are created and assessed. IV contrast was administered without complication. All measurements were calculated based on NASCET criteria. A dose lowering technique was utilized adhering to the principles of ALARA. FINDINGS: Three-vessel morphology of the thoracic aortic arch. There is patency of the imaged great vessels. The common and internal carotid arteries are patent. There is mild luminal narrowing involving the left carotid terminus. The middle and anterior cerebral arteries are patent. Diminutive left A1 segment is likely developmental. The common carotid arteries are codominant and widely patent. The basilar and posterior cerebral arteries are patent. The cerebral venous sinuses are patent. There is no abnormal intracranial enhancement. Lung apices are clear. No pneumothorax. Diminutive thyroid. Unremarkable soft tissues. There is no acute fracture. Degenerative changes of the cervical spine. IMPRESSION:Unremarkable CTA of the head and neck. No aneurysm, dissection, high-grade stenosis or arterial occlusion. ACT 112: Negative or not required by law. The above report was generated using voice recognition software. It may contain grammatical, syntax or spelling errors. Electronically signed by: Shiv Lopez M.D. 09/02/2021 8:29 PM Neck CTA 09/02/21 19:18 CT angio neck with con, CT angio head w con CLINICAL HISTORY: 51 years-old Female with Stroke Like Symptoms. Acute strokelike symptoms COMPARISON STUDY: Head CT of same day TECHNIQUE: Following the IV administration of 117 mL of Optiray, CT angiogram of the head and neck was performed from the aortic arch to the skull base. Images are reviewed in the axial, sagittal, and coronal planes. 3-D MIPS images are created and assessed. IV contrast was administered without complication. All measurements were calculated based on NASCET criteria. A dose lowering technique was utilized adhering to the principles of ALARA. FINDINGS: Three-vessel morphology of the thoracic aortic arch. There is patency of the imaged great vessels. The common and internal carotid arteries are patent. There is mild luminal narrowing involving the left carotid terminus. The middle and anterior cerebral arteries are patent. Diminutive left A1 segment is likely developmental. The common carotid arteries are codominant and widely patent. The basilar and posterior cerebral arteries are patent. The cerebral venous sinuses are patent. There is no abnormal intracranial enhancement. Lung apices are clear. No pneumothorax. Diminutive thyroid. Unremarkable soft tissues. There is no acute fracture. Degenerative changes of the cervical spine. IMPRESSION:Unremarkable CTA of the head and neck. No aneurysm, dissection, high- grade stenosis or arterial occlusion. ACT 112: Negative or not required by law. The above report was generated using voice recognition software. It may contain grammatical, syntax or spelling errors. Electronically signed by: Shiv Lopez M.D. 09/02/2021 8:29 PM ECG Data Attestation: I personally reviewed and interpreted this ECG as follows: Additional Comments: Twelve-lead EKG: Per my interpretation shows normal sinus rhythm at a rate of 77. No ST elevation. No PVCs. Normal QTC. MDM Narrative Patient presents with change in mental status and some left-sided weakness that was apparently more impressive for EMS as they reported that she had left-sided flaccidity and was not responding verbally. This seemed to improve on my evaluation. On my evaluation she was still weak in the left side but had some mild movement but could not raise her arm off the bed on the left. Neither leg can be raised off the bed. Right arm was raised off the bed and could be held up but she had decreased motor control of the right arm. Stroke alert was called prior to the patient's arrival. She went straight to CT scan. I talked to the [facility] neurologist who is evaluating the patient. Twelve-lead EKG shows a normal sinus rhythm. CT scan of the brain and CT angiogram of the head neck did not show acute process. The CBC was unremarkable. Chemistry panel was unremarkable. Troponin is negative. Chest x-ray does not show acute process. The patient was evaluated by stroke neurology. They feel the patient requires MRI and further inpatient evaluation. I spoke with the hospitalist about the patient. She will be admitted. Impression & Plan Stroke-like symptom Discharge Plan Visit Data Chief Complaint: Stroke Alert Stated Complaint: Stroke ED Provider: Willard Euceda Discharge Problem: Stroke-like symptom Patient Disposition: Being Evaluated by Hospitalist Forms Stand Alone Forms: My [facility] Prescriptions Prescriptions: No Action morphine 15 mg tablet extended release 15 mg PO TID RF: 0 morphine 15 mg tablet 15 mg PO TID PRN (Reason: Pain) RF: 0 duloxetine 30 mg capsule,delayed release(DR/EC) 30 mg PO DAILY RF: 0 duloxetine 60 mg capsule,delayed release(DR/EC) 60 mg PO DAILY RF: 0 celecoxib 200 mg capsule 200 mg PO DAILY PRN (Reason: Pain) RF: 0 levothyroxine 125 mcg tablet 250 mcg PO [id number] RF: 0 levothyroxine 125 mcg tablet 375 mcg PO WK RF: 0 metformin 500 mg tablet extended release 24 hr 500 mg PO DAILY RF: 0 ondansetron 8 mg tablet,disintegrating 8 mg translingual Q8 PRN (Reason: Pain) RF: 0 baclofen 10 mg tablet 10 mg PO TID PRN (Reason: MUSCLE RELAXANT) RF: 0 promethazine 25 mg tablet 25 mg PO Q6 PRN (Reason: Nausea) RF: 0 furosemide [Lasix] 40 mg Tablet 40 mg PO DAILY PRN (Reason: Edema) RF: 0 polyethylene glycol 3350 [Miralax] 17 gram Powder In Packet 17 g PO DAILY PRN (Reason: Constipation) RF: 0 nitroglycerin 0.4 mg tablet, sublingual 0.4 mg sublingual DIRECTED RF: 0 trazodone 50 mg Tablet 100 mg PO HS RF: 0 Referrals Referrals: Dajuan Bell DO [Primary Care Provider] -
--- NOTE | 2021-09-02 20:31 | CT Scan Report ---
CT angio neck with con, CT angio head w con CLINICAL HISTORY: 51 years-old Female with Stroke Like Symptoms. Acute strokelike symptoms COMPARISON STUDY: Head CT of same day TECHNIQUE: Following the IV administration of 117 mL of Optiray, CT angiogram of the head and neck wa s performed from the aortic arch to the skull base. Images are reviewed in the axial, sagittal, and c oronal planes. 3-D MIPS images are created and assessed. IV contrast was administered without complic ation. All measurements were calculated based on NASCET criteria. A dose lowering technique was util ized adhering to the principles of ALARA. FINDINGS: Three-vessel morphology of the thoracic aortic arch. There is patency of the imaged great vessels. Th e common and internal carotid arteries are patent. There is mild luminal narrowing involving the left carotid terminus. The middle and anterior cerebral arteries are patent. Diminutive left A1 segment i s likely developmental. The common carotid arteries are codominant and widely patent. The basilar and posterior cerebral arteries are patent. The cerebral venous sinuses are patent. There is no abnormal intracranial enhancement. Lung apices are clear. No pneumothorax. Diminutive thyroid. Unremarkable soft tissues. There is no ac primitivo fracture. Degenerative changes of the cervical spine. IMPRESSION:Unremarkable CTA of the head and neck. No aneurysm, dissection, high-grade stenosis or art erial occlusion. ACT 112: Negative or not required by law. The above report was generated using voice recognition software. It may contain grammatical, syntax o r spelling errors. Electronically signed by: Shiv Lopez M.D. 09/02/2021 8:29 PM
[2021-09-02 20:44] LABS: Appearance Urine Clear (Clear); Bacteria Urine Automated Negative (Negative); Bilirubin Urine Negative (Negative); Blood Urine 1+ (Negative); Color Urine Yellow; Epithelial Cell Urine Auto 0-5 /lpf (0-5); Glucose Urine UA Negative (Negative); Ketones Urine Negative (Negative); Leukocyte Esterase Urine Negative (Negative); Nitrite Urine Negative (Negative); Protein Urine Negative (Negative); Specific Gravity Urine 1.022 (1.000-1.030); Urobilinogen Urine Negative (Negative); WBC Urine Automated 0 /hpf (0-5)
[2021-09-02] MEDS ORDERED: PROCHLORPERAZINE 2 ML IV ONE (20:50)
[2021-09-02 20:51] LABS: Basophils # (auto) 0.02 K/uL (0-0.2); Basophils % (auto) 0.2 %; Eosinophils # (auto) 0.05 K/uL (0-0.5); Eosinophils % (auto) 0.4 %; Hematocrit (blood only) 46.1 % (37-47); Hemoglobin 15.6 g/dL (12.0-16.0); Immature Granulocytes # (auto) 0.04 K/uL (0.00-0.02); Immature Granulocytes % (auto) 0.3 %; Lymphocytes # (auto) 3.05 K/uL (1.2-3.4); Lymphocytes % (auto) 25.6 %; Mean Corpuscular Hemoglobin 30.6 pg (25-34); Mean Corpuscular Hgb Conc 33.8 g/dL (32-36); Mean Corpuscular Volume 90.4 fL (80-100); Mean Platelet Volume 10.8 fL (7.4-10.4); Monocytes # (auto) 0.42 K/uL (0.11-0.59); Monocytes % (auto) 3.5 %; Neutrophils # (auto) 8.32 K/uL (1.4-6.5); Platelet Count 273 K/uL (130-400); RDW Coefficient of Variation 13.8 % (11.5-14.5); RDW Standard Deviation 45.8 fL (36.4-46.3)
[2021-09-02 20:58] LABS: Partial Thromboplastin Time 28.3 Seconds (21.0-31.0); Prothrombin Time 10.6 Seconds (9.0-12.0)
[2021-09-02 21:04] LABS: Alanine Aminotransferase 8 U/L (7-52); Albumin Globulin Ratio 1.3 (0.9-2); Albumin Level 4.1 gm/dl (3.4-5.0); Alkaline Phosphatase 96 U/L (34-104); Anion Gap 8 (3-11); Aspartate Aminotransferase 11 U/L (13-39); BUN Creatinine Ratio 17.3 (10-20); Bilirubin,Total 0.4 mg/dl (0.2-1.0); Blood Urea Nitrogen 14 mg/dl (6-23); Calcium 10.1 mg/dl (8.5-10.1); Carbon Dioxide 23 mmol/L (21-32); Chloride 106 mmol/L (98-107); Creatinine Clr Calc Pharmacy 116.3 ml/min; Est GFR (African American) 98.2 ml/min; Est GFR (Non-African American) 84.7 ml/min; Globulin 3.2 gm/dl (2.5-4.0); Glucose 114 mg/dl (70-99(Fasting)); Magnesium 2.1 mg/dl (1.7-2.4); Potassium 3.7 mmol/L (3.5-5.1); Sodium 137 mmol/L (136-145); Total Protein 7.3 gm/dl (6.0-8.3)
[2021-09-02 21:06] LABS: Troponin I < 0.03 ng/ml (0-0.04)
[2021-09-02 21:47] LABS: Amphetamines+Metham, Urine Neg (Neg); Barbiturates, Urine Neg (Neg); Benzodiazepine, Urine Neg (Neg); Cocaine, Urine Neg (Neg); MDMA (Ecstacy), Urine Neg (Neg); Methadone, Urine Neg (Neg); Opiate, Urine Pos (Neg); Phencyclidine, Urine Neg (Neg)
[2021-09-03] MEDS ORDERED: ONDANSETRON 8MG OD TAB PO PRN (00:05)
[2021-09-03] MEDS ORDERED: NITROGLYCERIN SL 0.4 MG/TAB TAB SL PRN (00:05)
[2021-09-03] MEDS ORDERED: POLYETHYLENE (MIRALAX) 17 GM PACK PO PRN (00:05)
[2021-09-03] MEDS ORDERED: PHARMACIST DISCHARGE MED REC CONSULT PRN (00:05)
[2021-09-03] MEDS ORDERED: FUROSEMIDE 40 MG TAB PO PRN (00:05)
[2021-09-03] MEDS ORDERED: ACETAMINOPHEN 325 MG TAB PO PRN (00:05)
[2021-09-03] MEDS ORDERED: ONDANSETRON INJ 2 MG/ML 2 ML VIAL IV PRN (00:05)
[2021-09-03] MEDS ORDERED: MoRPHine SULFATE 10 MG/0.5 ML UDP PO PRN (00:17)
[2021-09-03] MEDS ORDERED: LORazepam 2 MG/1 ML VIAL IV STA (00:28)
[2021-09-03] MEDS ORDERED: CARBOHYDRATES FOR HYPOGLYCEMIA PO PRN (00:30)
[2021-09-03] MEDS ORDERED: GLUCOSE 40% GEL 15 GM TUBE PO PRN (00:30)
[2021-09-03] MEDS ORDERED: GLUCOSE 10 TABS/TUBE PO PRN (00:30)
[2021-09-03] MEDS ORDERED: GLUCAGON FOR INJ 1 MG VIAL IM PRN (00:30)
[2021-09-03] MEDS ORDERED: DEXTROSE 50% 50 ML SYRINGE IV PRN (00:30)
[2021-09-03] MEDS: MoRPHine SULFATE 4 MG/ML 1 ML CARP\\VIAL IV PRN ×5 (00:46→16:07)
[2021-09-03] MEDS: SODIUM CHLORIDE 0.9% 1000ML 1,000 ML IV SCH ×3 (01:43→20:40)
--- NOTE | 2021-09-03 03:56 | History and Physical Report ---
DATE OF ADMISSION: 09/02/2021. CHIEF COMPLAINT: Stroke-like symptoms. HISTORY OF PRESENT ILLNESS: A 51-year-old female with past medical history significant for hypothyroidism, primary hyperthyroidism, type 2 diabetes, irritable bowel syndrome, fibromyalgia, bulbar lumbar disk, migraine, chronic pain syndrome, opiate dependence, tobacco use disorder, generalized anxiety disorder, history of depression, who was brought in because she was found unresponsive by her son. As per around 3:00 or 3:15, she was fine. She ate her lunch at 1:00 p.m. and around 6:30 p.m. when her son came, she was found unresponsive and EMS was called and the EMS called stroke alert as they felt left side was flaccid and also facial droop. In the ER on arrival, it seems her speech was somewhat difficult to understand, occasionally garbled but was able to move left extremities thought they were weak. CTA of the head and neck and CT of the head were unremarkable. [place] neurologist recommended MRI scan and further inpatient evaluation. Symptoms are somewhat improving. Currently, the patient is alert, awake, and oriented x3. Knows her date of , knows her 's name, knows she is in the hospital. Does not know what happened. Answering appropriately. Speech is clear. Still has weakness involving the extremities, but more on the left side. She can lift her right upper and lower extremities, but could not lift her left extremities. Questionable slight facial droop on the left side. No difficulty swallowing. Has some complaints of headaches. She has history of migraines, history of chronic pain and also complaining of some back pain. She states her vision is blurry. No earache, no runny nose, no sore throat, no cough, no fevers, no nausea, no chest pain, no shortness of breath, no abdominal pain. Normal bowel and bladder movements otherwise. Before this happened, she was fine except complained of some generalized weakness as per . Currently hemodynamically stable. ALLERGIES: GABAPENTIN, TRAMADOL, CHLORPHENIRAMINE, GUAIFENESIN, SULFA ANTIBIOTICS, METOCLOPRAMIDE, ASPIRIN, CORTICOSTEROIDS, SYMPATHOMIMETICS. PAST MEDICAL HISTORY: As mentioned above. PAST SURGICAL HISTORY: Right cervical lymph node biopsy, , colonoscopy with biopsy, EGDs, EGD with biopsy, injection of lumbosacral spine, laparoscopic appendectomy, ligation of the oviducts, partial hysterectomy, cholecystectomy, video capsule endoscopy. MEDICATIONS: The patient is on baclofen 10 mg p.o. t.i.d. p.r.n., celecoxib 200 mg p.o. daily p.r.n., duloxetine 90 mg p.o. daily, Lasix 40 mg p.o. daily p.r.n., levothyroxine 250 mcg p.o. 6 times a week and 375 mcg p.o. one time a week, metformin 500 mg p.o. daily, morphine 15 mg p.o. t.i.d. p.r.n., MS Contin 15 mg p.o. t.i.d., nitroglycerin 0.4 mg sublingual p.r.n., Zofran 8 mg translingual q. 8 hours p.r.n., MiraLax 17 g p.o. daily, promethazine 25 mg p.o. q. 6 hours p.r.n., trazodone 100 mg p.o. at bedtime. FAMILY HISTORY: Significant for maternal grandmother had breast cancer, ovarian and uterine cancer; mother has dementia, diabetes, hypertension; father has hypertension; mother has thyroid disorder; paternal grandfather has prostate cancer. SOCIAL HISTORY: , currently smokes 1/4 pack a day for last 20 years. No alcohol use. No drug use. REVIEW OF SYSTEMS: As per HPI. Rest of review of systems is negative. PHYSICAL EXAMINATION: GENERAL: The patient is obese, currently somewhat drowsy, but not in acute distress. VITAL SIGNS: Temperature afebrile, pulse 75, respiratory rate 16, blood pressure 131/76, oxygen 98% on 2 liters. HEENT: Pupils equal, round and reactive to light. Extraocular muscles intact. Oral mucosa moist. No obvious facial droop. NECK: No JVD, no neck masses. CARDIOVASCULAR: S1 and S2 heard. Regular rate and rhythm. No murmur, no gallop. RESPIRATORY SYSTEM: Normal AP diameter. No accessory muscle use. No wheezing, no crackles. ABDOMEN: Soft, bowel sounds present, nontender, no distention. CENTRAL NERVOUS SYSTEM: Alert and oriented x3. Recent and remote memory intact. Speech is clear. Questionable left-sided facial droop, not able to lift left extremities. Sensation is intact. Position sense intact. LABORATORY DATA: WBC 11.9, hemoglobin 15.6, hematocrit 46.1, platelets 273. PT 10.6, INR 1, APTT 28.3. Sodium 137, potassium 3.7, chloride 106, bicarb 23, BUN 14, creatinine 0.8, serum glucose 114, lactate 1, calcium 10.1, magnesium 2.1, total bilirubin 0.4, AST 411, ALT 88, alkaline phosphatase 96. Troponin I less than 0.03. Procalcitonin less than 0.05. Urinalysis negative. Urine drug screen positive for opiates. SARS-CoV-2 rapid test negative. IMAGING DATA: CTA of the head and neck unremarkable. CT of the head, no acute findings. Chest x-ray, no acute findings. EKG: Normal sinus rhythm at a rate of 77, no significant change was found. ASSESSMENT AND PLAN: A 51-year-old female with stroke-like symptoms. 1. Stroke-like symptoms: The patient was fine around 3:00 to 3:15 p.m. Was fouind unresponsive for son around 6:30pm.. She was unresponsive for EMS. She wasflaccid on the left side. Stroke alert was called. Currently, she is alert, awake, and oriented. Speech is clear. Able to move all her extremities, but she could not lift her left extremities. Initial workup with CTA of the head and neck and CT of the head unremarkable. [place] Neurologist recommended MRI scan and further workup. Will monitor in tele.. Will do MRI scan, echo, speech evaluation, and neuro evaluation. . Follow the lipid profile, HbA1c levels. Neuro checks. Follow the stroke protocol. 2. Hypothyroidism: Continue home levothyroxine. Follow the thyroid profile 3. History of diabetes: Hold metformin. Placed on insulin sliding scale. Follow HbA1c levels. 4. Chronic pain syndrome, migraines, opioid dependence: Holding her MS Contin . Changed the morphine 15 mg b.i.d. p.r.n. to 10 mg p.o. b.i.d. p.r.n. for now. When she is more alert and awake, we need to put back on her home medications. Follow up with family doctor and pain doctor. 5. Tobacco use disorder: Needs counseling. 6. Generalized anxiety disorder and depression: Continue her duloxetine and trazodone. 7. History of fibromyalgia. 8. Deep venous thrombosis prophylaxis: Sequential compression devices. DISPOSITION: Closely monitor in the tele floor. Level 1 full code. Expect to discharge home and follow with family doctor. Job ID: [id number] [facility]
[2021-09-03] MEDS: LEVOTHYROXINE SODIUM 125 MCG TABLET PO SCH (05:46)
[2021-09-03 06:40] LABS: Basophils # (auto) 0.01 K/uL (0-0.2); Basophils % (auto) 0.1 %; Hematocrit (blood only) 46.2 % (37-47); Hemoglobin 15.6 g/dL (12.0-16.0); Immature Granulocytes # (auto) 0.04 K/uL (0.00-0.02); Immature Granulocytes % (auto) 0.3 %; Lymphocytes # (auto) 1.27 K/uL (1.2-3.4); Lymphocytes % (auto) 9.3 %; Mean Corpuscular Hemoglobin 30.7 pg (25-34); Mean Corpuscular Hgb Conc 33.8 g/dL (32-36); Mean Corpuscular Volume 90.9 fL (80-100); Mean Platelet Volume 10.8 fL (7.4-10.4); Monocytes # (auto) 0.08 K/uL (0.11-0.59); Monocytes % (auto) 0.6 %; Neutrophils # (auto) 12.23 K/uL (1.4-6.5); Neutrophils % (auto) 89.7 %; Platelet Count 253 K/uL (130-400); RDW Coefficient of Variation 13.6 % (11.5-14.5); RDW Standard Deviation 45.7 fL (36.4-46.3); Red Blood Count 5.08 M/uL (4.2-5.4); White Blood Count 13.63 K/uL (4.8-10.8)
[2021-09-03 06:53] LABS: Estimated Average Glucose 126 mg/dl
[2021-09-03 07:02] LABS: BUN Creatinine Ratio 17.6 (10-20); Calcium 10.2 mg/dl (8.5-10.1); Chol HDL Ratio 3.8 (0-5); Creatinine Clr Calc Pharmacy 138.6 ml/min; Est GFR (African American) 118.2 ml/min; Potassium 4.1 mmol/L (3.5-5.1)
[2021-09-03 07:21] LABS: Thyroid Stimulating Hormone 8.105 uIu/ml (0.300-4.500)
--- NOTE | 2021-09-03 07:37 | Magnetic Resonance Report ---
Brain MRI WITHOUT CONTRAST HISTORY: Change in mental status. Left-sided weakness. Possible stroke. TECHNIQUE: Multiplanar multisequence MRI of the brain was performed without the use of contrast. COMPARISON STUDY: Head CT 09/02/2021. Brain MRI 09/16/2010. FINDINGS: There are no areas of restricted diffusion to suggest acute infarction. The midline structu res are intact. The paranasal sinuses are clear. The mastoid air cells are clear. The ventricles and sulci are within normal limits for age. There is no mass, hematoma, midline shift. The major vascular flow-voids at the skull base are well maintained. IMPRESSION: No acute intracranial abnormality. ACT 112: Negative or not required by law. Electronically signed by: Zheng Rivera M.D. 09/03/2021 7:36 AM
[2021-09-03 07:52] LABS: T4 Free Thyroxine 0.94 ng/dl (0.61-1.60)
--- NOTE | 2021-09-03 07:56 | XRay Report ---
XR chest 1V portable HISTORY: Change in mental status. Left-sided weakness. Stroke Like Symptoms COMPARISON: Chest 03/06/2021. FINDINGS: The lungs are clear. Cardiac silhouette is normal in size. No pleural effusions. No pneumot horax. IMPRESSION: No acute process. ACT 112: Negative or not required by law. Electronically signed by: Zheng Rivera M.D. 09/03/2021 7:54 AM
[2021-09-03] MEDS: INSULIN ASPART PER UNIT SC SCH ×4 (09:19→20:43)
[2021-09-03] MEDS ORDERED: BUTALBITAL/ACETAMIN/CAFFEINE TAB PO STA (09:43)
[2021-09-03] MEDS: DULoxetine HCL 60 MG CAP PO SCH (10:40)
[2021-09-03] MEDS: DULoxetine HCL 30 MG CAP PO SCH (10:40)
--- NOTE | 2021-09-03 11:17 | Neurology Consultation ---
Date of Consultation September 03, 2021 Assessment & Plan (1) Stroke-like symptom: 1. MRI brain no acute findings 2. CTA head/neck- no occlusion or significant narrowing 3. PT/OT speech for discharge needs 4. start plavix 75 mg daily for life 5.TTE - small right to left shunt- cardiology for further input 6. no stroke on imaging. TIA possible. Recommend starting plavix at this age would recommend aspirin but she has aspirin allergy (2) Migraines: 1. restart topamax 25 mg hs x 5 days then 50 mg x 5 days then 75 mg x 5 days then 100 mg at bedtime 2. advise to stop using maxalt for prn use. 3. nurtec or ubrelvy would be better option can order in out patient setting 4. Depakote 500 mg IV now and can be repeated in 12 hours. 5. strongly urged smoking cessation 6. keep well hydrated avoid caffeine 7. would not use fiorcet high potential for rebound headaches will schedule for follow up in neurology in 4-6 weeks after discharge. Supervising Physician Co-Signing Physician Notes Discussed and reviewed with Myah Villa PA-C. Agree with recommendations and planned as noted below. A 51 year old woman with possible complex migraine Vs TIA. Agree with starting Plavix and restarting Topamax. Outpatient follow up for migirane management. History of Present Illness Reason for Consultation: stroke like symptoms Requesting Physician: Yousif Payne MD Attending Physician: Yousif Payne MD History of Present Illness Jessica is a 51 year old female with PMH- hypothyroidism, primary hyperthyroidism, DM 2, IBS, fibromyalgia, bulbar lumbar disk, migraine, chronic pain syndrome, opiate dependence, tobacco use disorder,AZAR, depression, who was found unresponsive by her son 09/02/21. .She was fine that day at around 3:00 or 3:15 she ate her lunch at 1:00 p.m. and around 6:30 p.m. when her son came, she was found unresponsive. EMS was called a stroke alert due to her left side was flaccid and also facial droop. it seems her speech was somewhat difficult to understand, occasionally garbled but was able to move left extremities thought they were weak. CTA of the head and neck and CT of the head were unremarkable. [facility] neurologist recommended MRI scan and further inpatient evaluation.She was complaining of headache. She has history of migraines, history of chronic pain and also complaining of some back pain. currently she is having a 7/10 headache which she thinks is better than prior. Left UE/LE weakness. She was unable to participate with PT today. She was on Topamax in the past but didn't continue taking because her insurance wouldn't pay for it. She does take Maxalt. She is a 1 ppd smoker, no EtOH use . denies CP, SOB, abdominal pain, N, V. vision changes. . Allergies Allergy/AdvReac Type Severity Reaction Status Date / Time gabapentin Allergy Severe anaphylaxis Verified 03/22/21 10:40 tramadol Allergy Severe ANAPHYLAXIS Verified 03/22/21 10:40 chlorpheniramine Allergy Intermediate SHORTNESS Verified 03/22/21 10:40 OF BREATH guaifenesin Allergy Intermediate SHORTNESS Verified 03/22/21 10:40 OF BREATH Sulfa (Sulfonamide Allergy Unknown Verified 09/02/21 21:13 Antibiotics) metoclopramide AdvReac Intermediate anxiety Verified 09/02/21 21:13 aspirin AdvReac TINNITUS Verified 09/02/21 21:13 Corticosteroids AdvReac Agitated Verified 09/02/21 21:13 (Glucocorticoids) SYMPATHOMIMETICS Allergy Unknown Uncoded 09/02/21 21:13 Home Medications Medication Instructions Recorded Confirmed Type baclofen 10 mg tablet 10 mg PO TID PRN 09/02/21 09/02/21 History celecoxib 200 mg capsule 200 mg PO DAILY PRN 09/02/21 09/02/21 History duloxetine 30 mg capsule,delayed 30 mg PO DAILY 09/02/21 09/02/21 History release duloxetine 60 mg capsule,delayed 60 mg PO DAILY 09/02/21 09/02/21 History release furosemide 40 mg tablet (Lasix) 40 mg PO DAILY PRN 09/02/21 09/02/21 History levothyroxine 125 mcg tablet 250 mcg PO 6XWK 09/02/21 09/02/21 History levothyroxine 125 mcg tablet 375 mcg PO WK 09/02/21 09/02/21 History metformin 500 mg tablet,extended 500 mg PO DAILY 09/02/21 09/02/21 History release 24 hr morphine 15 mg immediate release 15 mg PO TID PRN 09/02/21 09/02/21 History tablet morphine 15 mg tablet,extended 15 mg PO TID 09/02/21 09/02/21 History release nitroglycerin 0.4 mg sublingual 0.4 mg SUBLINGUAL DIRECTED 09/02/21 09/02/21 History tablet ondansetron 8 mg disintegrating 8 mg TRANSLINGUAL Q8 PRN 09/02/21 09/02/21 History tablet polyethylene glycol 3350 17 gram 17 g PO DAILY PRN 09/02/21 09/02/21 History oral powder packet (Miralax) promethazine 25 mg tablet 25 mg PO Q6 PRN 09/02/21 09/02/21 History trazodone 50 mg tablet 100 mg PO HS 09/02/21 09/02/21 History Patient History Medical History (Updated 09/03/21 @ 16:56 by Yousif Payne MD) Acute exacerbation of chronic low back pain Anxiety Atelectasis Back pain Bulging lumbar disc Small broad-based posterior disc bulge with a small right paracentral focal disc protrusion Cardiomyopathy 2014 - thought to be stress induced, reported normal dobutamine stress and echo after Chronic back pain Chronic pain syndrome Depression Fibromyalgia H/O traumatic brain injury Hypokalemia Hypothyroidism (Unknown) IBS (irritable bowel syndrome) Intractable back pain Intractable nausea and vomiting Migraines Opiate dependence Tobacco abuse Surgical History Bilateral tubal ligation (Unknown) section (Unknown) H/O colonoscopy "2006 path normal" H/O cystoscopy H/O esophagogastroduodenoscopy "2006 path normal" History of knee surgery Hx of appendectomy Hx of cholecystectomy Hx of hysterectomy S/P lymph node biopsy "deep cervical inflammatory node 2007" Family History Other Diabetes Hypertension Thyroid disorder Social History Smoking Status: Current every day smoker Tobacco Type: Cigarettes Cigarettes Per Day: 10; Second Hand Exposure: Yes; Do You Dip or Chew Tobacco: No; Hx Alcohol Use: No Hx Substance Use: Yes Last Used Substance: Unknown Substance Use Type Other:: Patient is prescribed opiate Preferred Language: Wolof Communication Ability: Effective Visual Impairment: Partially Limited Pheresis Specialist Required: No Beliefs That Will Affect Care: None marital status: Current Living Situation: Spouse Current Living Situation Comment: grandson Other Information That Helps Us Care for You: No Feels Safe at Home: Yes Safety Concerns: Feels Safe At This Time Assistive Devices: None Review of Systems Review of Systems: All systems reviewed & are unremarkable except as noted in HPI & below Physical Exam Physical Exam: Physical Exam: Constitutional: appearance over nourished, healthy and normal Ears, Nose, Mouth and Throat: mucous membranes moist, no injection and skin normal, eyes normal Cardiovascular: normal S-1 and S-2 and regular rate and rhythm Respiratory: course breath sounds Musculoskeletal: no peripheral edema Skin: no stigmata of neurocutaneous disease noted and normal and intact Eyes: extraocular muscles intact (EOMI) and pupils equal, round and reactive to light (PERRL) NEUROLOGIC EXAMINATION: Mental status: Alert and interactive Oriented to full date and location Oriented to person Speech fluent with no evidence of aphasia Cranial Nerves smile eye brow raise symmetric Reflexes: Deep tendon reflexes were symmetrical and graded 2/5. Sensory: light cool touch Coordination: right intact Gait/Stance: Posture sitting bedside Motor: could not assess unable to lift left arm . 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 , left 4/5, hip flex right 5/5 , left 4/5 Results & Data ([facility]) Vital Signs (Past 12 Hours) Vital Signs Temp Pulse Pulse Resp BP BP Pulse Ox 09/03/21 08:00 73 09/03/21 07:00 36.4 C L 57 L 16 144/99 H 97 09/03/21 04:26 36.8 C 71 18 138/80 95 09/03/21 01:00 37.1 C 63 20 162/87 H 95 09/03/21 00:30 64 09/03/21 00:05 37.1 C 63 20 162/87 H 95 09/02/21 23:40 68 18 133/79 95 Pulse Ox 09/03/21 08:00 09/03/21 07:00 09/03/21 04:26 09/03/21 01:00 09/03/21 00:30 09/03/21 00:05 96 09/02/21 23:40 Laboratory Results Abnormal lab results 09/02/21 09/02/21 09/02/21 Range/Units 20:00 20:00 20:14 WBC (4.8-10.8) K/uL MPV (7.4-10.4) fL Neut # (Auto) (1.4-6.5) K/uL Page # (Auto) (0.11-0.59) K/uL Immature Gran # (Auto) (0.00-0.02) K/uL Chloride (98-107) mmol/L Glucose (70-99(Fasting)) mg/dl POC Glucose 107 H (70-99) mg/dl Hemoglobin A1c (4.5-5.6) % Calcium (8.5-10.1) mg/dl AST (13-39) U/L Cholesterol (0-200) mg/dl TSH (0.300-4.500) uIu/ml Urine pH 8.0 H (4.5-7.5) Urine Blood 1+ H (Negative) Urine RBC (Auto) 5-10 H (0-4) /hpf Urine Opiates Screen Pos H (Neg) 09/02/21 09/02/21 09/03/21 Range/Units 20:31 20:31 06:11 WBC 11.90 H 13.63 H (4.8-10.8) K/uL MPV 10.8 H 10.8 H (7.4-10.4) fL Neut # (Auto) 8.32 H 12.23 H (1.4-6.5) K/uL Page # (Auto) 0.08 L (0.11-0.59) K/uL Immature Gran # (Auto) 0.04 H 0.04 H (0.00-0.02) K/uL Chloride (98-107) mmol/L Glucose 114 H (70-99(Fasting)) mg/dl POC Glucose (70-99) mg/dl Hemoglobin A1c (4.5-5.6) % Calcium (8.5-10.1) mg/dl AST 11 L (13-39) U/L Cholesterol (0-200) mg/dl TSH (0.300-4.500) uIu/ml Urine pH (4.5-7.5) Urine Blood (Negative) Urine RBC (Auto) (0-4) /hpf Urine Opiates Screen (Neg) 09/03/21 09/03/2122 Range/Units 06:11 06:11 06:11 WBC (4.8-10.8) K/uL MPV (7.4-10.4) fL Neut # (Auto) (1.4-6.5) K/uL Page # (Auto) (0.11-0.59) K/uL Immature Gran # (Auto) (0.00-0.02) K/uL Chloride 108 H (98-107) mmol/L Glucose 138 H (70-99(Fasting)) mg/dl POC Glucose (70-99) mg/dl Hemoglobin A1c 6.0 H (4.5-5.6) % Calcium 10.2 H (8.5-10.1) mg/dl AST (13-39) U/L Cholesterol 226 H (0-200) mg/dl TSH 8.105 H (0.300-4.500) uIu/ml Urine pH (4.5-7.5) Urine Blood (Negative) Urine RBC (Auto) (0-4) /hpf Urine Opiates Screen (Neg) 09/03/21 09/03/21 Range/Units 07:55 11:35 WBC (4.8-10.8) K/uL MPV (7.4-10.4) fL Neut # (Auto) (1.4-6.5) K/uL Page # (Auto) (0.11-0.59) K/uL Immature Gran # (Auto) (0.00-0.02) K/uL Chloride (98-107) mmol/L Glucose (70-99(Fasting)) mg/dl POC Glucose 136 H 128 H (70-99) mg/dl Hemoglobin A1c (4.5-5.6) % Calcium (8.5-10.1) mg/dl AST (13-39) U/L Cholesterol (0-200) mg/dl TSH (0.300-4.500) uIu/ml Urine pH (4.5-7.5) Urine Blood (Negative) Urine RBC (Auto) (0-4) /hpf Urine Opiates Screen (Neg) Diagnostic Findings CXR- no acute findings CT head- no acute abnormalities CTA head/neck- Unremarkable CTA of the head and neck. No aneurysm, dissection, high-grade stenosis or arterial occlusion. MRI brain-here are no areas of restricted diffusion to suggest acute infarction. The midline structures are intact. The paranasal sinuses are clear. The mastoid air cells are clear. The ventricles and sulci are within normal limits for age. There is no mass, hematoma, midline shift. The major vascular flow-voids at the skull base are well maintained. TTE- small right to left shunt, eF 60-65%
--- NOTE | 2021-09-03 14:37 | Electrocardiogram Report ---
Test Reason : Blood Pressure : / mmHG Vent. Rate : 077 BPM Atrial Rate : 077 BPM P-R Int : 158 ms QRS Dur : 074 ms QT Int : 352 ms P-R-T Axes : 050 007 041 degrees QTc Int : 398 ms Normal sinus rhythm Low voltage QRS Borderline ECG When compared with ECG of 06-MAR-2021 19:56, No significant change was found Confirmed by Juan Krause ([id number]) on 09/03/2021 2:37:34 PM Referred By: REFERRED SELF Confirmed By:Juan Krause
[2021-09-03] MEDS ORDERED: VALPROATE SOD 500 MG in DEXTROSE 5% 50 ML IV STA (15:43)
--- NOTE | 2021-09-03 17:08 | Hospitalist Progress Note ---
Date of Service September 03, 2021 Assessment & Plan (1) Intractable complicated migraine: (2) Stroke-like symptom: (3) Chronic back pain: Plan: 51 year old female with migraine presented to the ED 09/02 via EMS for unresponsiveness and left sided weakness. Intractable complicated migraine with left sided weakness and paresthesia- likely the cause of her stroke like symptoms rather than CVA, as suggested by history and negative work up. Stroke work up has been negative with negative CT head, CTA and MRI brain. Still has left sided weakness and paresthesia with headache and blurry vision but improved. Seen by neurology- recommendations noted as below - started on iv depacon, can be repeated in 12 hours if needed - resumed on topamax- uptitrate as outlined - adequate hydration, avoid caffeine, avoid maxalt and fioricet - consider nurtec or ubrelvy as outpatient - stop smoking - f/u with neurology in 4-6 weeks Stroke like symptoms- CT head, MRI brain, CTA head and neck negative for stroke, TTE with no shunting. Neuro recommended plavix for life given aspirin allergy as TIA not ruled out. Continue telemetry. PT/OT evaluation. Hypothyroidism- continue synthroid DM-2- holding metformin, continue SSI Chronic pain syndrome on chronic opiate- on morphine ER 15 tid along with short acting morphine tid at home. Now that she is fully awake alert, will introduce her home opiates to avoid withdrawal. AZAR/depression- continue cymbalta, trazodone Fibromyalgia DVT prophylaxis- sc heparin Dispo- Pending improvement in migraine symptoms. PT/OT evaluation Admission and Anticipated Discharge Date Admission Date: September 02, 2021 Subjective Seen and examined at bedside. States she had severe headache with some visual blurring and went down to sit and doesn't remember anything after that until she is in the ED. States it felt like her migraine attack and she would normally take maxalt but she did not yesterday. She was on topamax in the past but with change in insurance, she could not get it. Now her insurance covers but it was never resumed. She was still having pain and some left sided weakness and paresthesia during my visit this moring. Patient revisited later today. present in repeat visit later today. Feeling better. Tolerating oral intake without issues. [place] was taken out and she voided without issues. Speech now normal. She had been seen by neurology. Physical Exam Physical Exam: General: Lying in bed, in some discomfort due to pain, on room air HEENT: EOMI, YELENA, MMM Chest: Clear breath sounds bilaterally, no wheezes or crackles CVS: Regular rate and rhythm, normal heart sounds, no murmur Abdomen: Soft, non tender, not distended, normal bowel sounds Neuro: Awake, alert, oriented, conversing well. No dysarthria. LUE and LLE strength 4/5, 5/5 on right side; Decreased sensation on left face, LUE and LLE, normal on the right side Extremities: No cyanosis, clubbing or edema Results & Data Results & Data ([facility]) Vital Signs (Past 12 Hours) Vital Signs Temp Pulse Pulse Resp BP Pulse Ox 09/03/21 15:16 36.9 C 81 16 134/80 94 09/03/21 12:23 80 15 154/92 H 96 09/03/21 08:00 73 09/03/21 07:00 36.4 C L 57 L 16 144/99 H 97 Laboratory Results Short CBC 09/02/21 09/03/21 Range/Units 20:31 06:11 WBC 11.90 H 13.63 H (4.8-10.8) K/uL Hgb 15.6 15.6 (12.0-16.0) g/dL Hct 46.1 46.2 (37-47) % Plt Count 273 253 (130-400) K/uL BMP 09/02/21 09/03/21 20:31 06:11 Sodium 137 138 Potassium 3.7 4.1 Chloride 106 108 H Carbon Dioxide 23 25 BUN 14 12 Creatinine 0.81 0.68 Glucose 114 H 138 H Calcium 10.1 10.2 H Cardiac Enzymes 09/02/21 Range/Units 20:31 Troponin I < 0.03 (0-0.04) ng/ml Liver Function 09/02/21 Range/Units 20:31 Total Bilirubin 0.4 (0.2-1.0) mg/dl AST 11 L (13-39) U/L ALT 8 (7-52) U/L Alkaline Phosphatase 96 (34-104) U/L Albumin 4.1 (3.4-5.0) gm/dl Urine 09/02/21 Range/Units 20:00 Urine Color Yellow Urine Appearance Clear (Clear) Urine pH 8.0 H (4.5-7.5) Ur Specific Pedro 1.022 (1.000-1.030) Urine Protein Negative (Negative) Urine Glucose (UA) Negative (Negative) Diagnostic Findings Chest X-Ray 09/02/21 19:18 XR chest 1V portable HISTORY: Change in mental status. Left-sided weakness. Stroke Like Symptoms COMPARISON: Chest 03/06/2021. FINDINGS: The lungs are clear. Cardiac silhouette is normal in size. No pleural effusions. No pneumothorax. IMPRESSION: No acute process. ACT 112: Negative or not required by law. Electronically signed by: Zheng Rivera M.D. 09/03/2021 7:54 AM Brain MRI 09/03/21 00:05 Brain MRI WITHOUT CONTRAST HISTORY: Change in mental status. Left-sided weakness. Possible stroke. TECHNIQUE: Multiplanar multisequence MRI of the brain was performed without the use of contrast. COMPARISON STUDY: Head CT 09/02/2021. Brain MRI 09/16/2010. FINDINGS: There are no areas of restricted diffusion to suggest acute infarcti on. The midline structures are intact. The paranasal sinuses are clear. The mastoid air cells are clear. The ventricles and sulci are within normal limits for age. There is no mass, hematoma, midline shift. The major vascular flow- voids at the skull base are well maintained. IMPRESSION: No acute intracranial abnormality. ACT 112: Negative or not required by law. Electronically signed by: Zheng Rivera M.D. 09/03/2021 7:36 AM Medications Administered Current Inpatient Medications Acetaminophen (Acetaminophen 325 Mg Tab) 650 mg PO Q4H PRN PRN Reason: Pain or Fever Stop: 10/03/21 00:04 Dextrose (Dextrose 50% 50 Ml Syringe) 25 - 50 ml IV UD PRN; Protocol PRN Reason: Hypoglycemia Protocol Stop: 10/03/21 00:29 Duloxetine HCl (Duloxetine Hcl 30 Mg Cap) 30 mg PO DAILY ANDREW Stop: 10/03/21 08:59 Last Admin: 09/03/21 10:40 Dose: 30 mg Documented by: Duloxetine HCl (Duloxetine Hcl 60 Mg Cap) 60 mg PO DAILY ANDREW Stop: 10/03/21 08:59 Last Admin: 09/03/21 10:40 Dose: 60 mg Documented by: Furosemide (Furosemide 40 Mg Tab) 40 mg PO DAILY PRN PRN Reason: Edema Stop: 10/03/21 00:04 Glucagon (Glucagon For Inj 1 Mg Vial) 1 mg IM UD PRN; Protocol PRN Reason: Hypoglycemia Protocol Stop: 10/03/21 00:29 Glucose (Glucose 40% Gel 15 Gm Tube) 15 - 30 gm PO UD PRN; Protocol PRN Reason: Hypoglycemia Protocol Stop: 10/03/21 00:29 Glucose (Glucose 10 Tabs/Tube) 4 - 8 tabs PO UD PRN; Protocol PRN Reason: Hypoglycemia Protocol Stop: 10/03/21 00:29 Sodium Chloride (Nss 1000ml) 1,000 mls @ 100 mls/hr IV .Q10H ANDREW Stop: 10/03/21 00:04 Last Admin: 09/03/21 10:40 Dose: 100 mls/hr Documented by: Insulin Aspart (Insulin Aspart Per Unit) 0 units SC ACHS ANDREW Stop: 10/03/21 07:29 Last Admin: 09/03/21 16:38 Dose: Not Given Documented by: Levothyroxine Sodium (Levothyroxine Sodium 125 Mcg Tablet) 250 mcg PO [id number] ANDREW Stop: 10/03/21 06:29 Last Admin: 09/03/21 05:46 Dose: Not Given Documented by: Levothyroxine Sodium (Levothyroxine Sodium 125 Mcg Tablet) 375 mcg PO [email or web address]@0630 ANDREW Stop: 10/05/21 06:29 Miscellaneous (Carbohydrates For Hypoglycemia ) 15 - 30 gm PO UD PRN PRN Reason: Hypoglycemia Treatment Stop: 10/03/21 00:29 Miscellaneous Information (Pharmacist Discharge Med Rec Consult) 1 ea N/A UD PRN PRN Reason: Consult Stop: 10/03/21 00:04 Morphine Sulfate (Morphine Sulfate 10 Mg/0.5 Ml Udp) 10 mg PO BID PRN PRN Reason: Pain Stop: 09/17/21 00:16 Morphine Sulfate (Morphine Sulfate 4 Mg/Ml 1 Ml Carp\Vial) 3 mg IV Q4H PRN PRN Reason: Pain Stop: 09/17/21 00:27 Last Admin: 09/03/21 16:07 Dose: 3 mg Documented by: Nitroglycerin (Nitroglycerin Sl 0.4 Mg/Tab Tab) 0.4 mg SL UD PRN PRN Reason: Chest Pain Stop: 10/03/21 00:04 Ondansetron HCl (Ondansetron Inj 2 Mg/Ml 2 Ml Vial) 4 mg IV Q6H PRN PRN Reason: Nausea Stop: 10/03/21 00:04 Last Admin: 09/03/21 16:04 Dose: 4 mg Documented by: Ondansetron HCl (Ondansetron 8mg Od Tab) 8 mg PO Q8 PRN PRN Reason: Nausea Stop: 10/03/21 00:04 Polyethylene Glycol (Polyethylene (Miralax) 17 Gm Pack) 17 gm PO DAILY PRN PRN Reason: Constipation Stop: 10/03/21 00:04 Topiramate (Topiramate 25 Mg Tab) 25 mg PO QAM [facility] Stop: 10/03/21 15:44 Trazodone HCl (Trazodone Hcl 100 Mg Tab) 100 mg PO HS [facility] Stop: 10/03/21 20:59
[2021-09-03] MEDS ORDERED: MoRPHine SULFATE IR 15 MG TAB (IMMEDIATE RELEASE) PO PRN (17:09)
[2021-09-03] MEDS ORDERED: MoRPHine SULFATE 2 MG/ML CARP IV PRN (17:15)
[2021-09-03] MEDS: TOPIRAMATE 25 MG TAB PO SCH (17:18)
[2021-09-03] MEDS: MoRPHine SULFATE CR 15 MG TABCR PO SCH (20:09)
[2021-09-03] MEDS ORDERED: traZODone HCL 100 MG TAB PO SCH (21:00)
[2021-09-04 05:54] LABS: Basophils # (auto) 0.01 K/uL (0-0.2); Basophils % (auto) 0.1 %; Eosinophils # (auto) 0.03 K/uL (0-0.5); Eosinophils % (auto) 0.3 %; Hematocrit (blood only) 42.2 % (37-47); Hemoglobin 13.8 g/dL (12.0-16.0); Immature Granulocytes # (auto) 0.02 K/uL (0.00-0.02); Immature Granulocytes % (auto) 0.2 %; Lymphocytes % (auto) 28.7 %; Mean Corpuscular Hemoglobin 30.2 pg (25-34); Mean Corpuscular Hgb Conc 32.7 g/dL (32-36); Mean Corpuscular Volume 92.3 fL (80-100); Mean Platelet Volume 10.7 fL (7.4-10.4); Monocytes # (auto) 0.48 K/uL (0.11-0.59); Monocytes % (auto) 4.9 %; Neutrophils # (auto) 6.42 K/uL (1.4-6.5); Neutrophils % (auto) 65.8 %; Platelet Count 224 K/uL (130-400); RDW Standard Deviation 47.3 fL (36.4-46.3); Red Blood Count 4.57 M/uL (4.2-5.4); White Blood Count 9.76 K/uL (4.8-10.8)
[2021-09-04] MEDS: LEVOTHYROXINE SODIUM 125 MCG TABLET PO SCH (06:15)
[2021-09-04 06:20] LABS: BUN Creatinine Ratio 16.3 (10-20); Calcium 9.2 mg/dl (8.5-10.1); Creatinine Clr Calc Pharmacy 100.5 ml/min; Est GFR (African American) 91.3 ml/min; Est GFR (Non-African American) 78.8 ml/min; Magnesium 2.1 mg/dl (1.7-2.4); Phosphorus 2.7 mg/dl (2.5-4.9); Potassium 3.9 mmol/L (3.5-5.1)
[2021-09-04] MEDS: SODIUM CHLORIDE 0.9% 1000ML 1,000 ML IV SCH ×2 (06:40→10:13)
[2021-09-04] MEDS: INSULIN ASPART PER UNIT SC SCH ×2 (07:55→11:58)
[2021-09-04] MEDS: DULoxetine HCL 30 MG CAP PO SCH (08:39)
[2021-09-04] MEDS: DULoxetine HCL 60 MG CAP PO SCH (08:39)
[2021-09-04] MEDS: MoRPHine SULFATE CR 15 MG TABCR PO SCH (08:39)
[2021-09-04] MEDS: TOPIRAMATE 25 MG TAB PO SCH (08:39)
--- NOTE | 2021-09-04 11:50 | Hospitalist Progress Note ---
Date of Service September 04, 2021 Assessment & Plan (1) Intractable complicated migraine: (2) Stroke-like symptom: (3) Chronic back pain: Plan: 51 year old female with migraine presented to the ED 09/02 via EMS for unresponsiveness and left sided weakness. Intractable complicated migraine with left sided weakness and paresthesia- likely the cause of her stroke like symptoms rather than CVA, as suggested by history and negative work up. Stroke work up has been negative with negative CT head, CTA and MRI brain. Still has left sided weakness and paresthesia with headache but improved. Seen by neurology- recommendations noted as below - s/p iv depacon, can be repeated if needed - resumed on topamax- uptitrate as outlined - adequate hydration, avoid caffeine, avoid maxalt and fioricet - consider nurtec or ubrelvy as outpatient - stop smoking - f/u with neurology in 4-6 weeks Stroke like symptoms- CT head, MRI brain, CTA head and neck negative for stroke, TTE with no shunting. Neuro recommended plavix for life given aspirin allergy as TIA not ruled out. Continue telemetry. PT recommends inpatient rehab as of now, continue to follow. Hypothyroidism- TSH mildly elevated, T4 normal, continue synthroid. Recommend repeat TFT in 6 weeks. DM-2- holding metformin, continue SSI Chronic pain syndrome on chronic opiate- on morphine ER 15 tid along with short acting morphine 15mg tid at home. Continue current regimen at a reduced dose and frequency to avoid withdr. AZAR/depression- continue cymbalta, trazodone Fibromyalgia DVT prophylaxis- sc lovenox Dispo- Tranasfer to [facility]. Still with left sided weakness, PT recommending inpatient rehab as of now, unless she improves and can be discharged with home care- PT and CM following Admission and Anticipated Discharge Date Admission Date: September 02, 2021 Subjective Seen and examined at bedside. Feels better. Headache is better 3/10. Left sided weakness and paresthesia still there, only slightly improved from yesterday. Normal oral intake. Voiding without issues. Chronic pain reasonably controlled. Asking when she would be discharged. Physical Exam Physical Exam: General: Lying in bed, in some discomfort due to pain, on room air HEENT: EOMI, YELENA, MMM Chest: Clear breath sounds bilaterally, no wheezes or crackles CVS: Regular rate and rhythm, normal heart sounds, no murmur Abdomen: Soft, non tender, not distended, normal bowel sounds Neuro: Awake, alert, oriented, conversing well. No dysarthria. LUE and LLE strength 4/5, 5/5 on right side; Decreased sensation on left face, LUE and LLE, normal on the right side Extremities: No cyanosis, clubbing or edema Results & Data Results & Data ([facility]) Vital Signs (Past 12 Hours) Vital Signs Temp Pulse Resp BP Pulse Ox Pulse Ox 09/04/21 10:58 37.1 C 54 L 17 106/63 94 09/04/21 07:42 36.5 C 61 20 129/69 95 09/04/21 04:09 36.7 C 86 18 122/78 97 09/04/21 00:05 93 Laboratory Results Short CBC 09/04/21 Range/Units 05:22 WBC 9.76 (4.8-10.8) K/uL Hgb 13.8 (12.0-16.0) g/dL Hct 42.2 (37-47) % Plt Count 224 (130-400) K/uL BMP 09/04/21 05:22 Sodium 140 Potassium 3.9 Chloride 109 H Carbon Dioxide 27 BUN 14 Creatinine 0.86 Glucose 90 Calcium 9.2 Medications Administered Current Inpatient Medications Acetaminophen (Acetaminophen 325 Mg Tab) 650 mg PO Q4H PRN PRN Reason: Pain or Fever Stop: 10/03/21 00:04 Dextrose (Dextrose 50% 50 Ml Syringe) 25 - 50 ml IV UD PRN; Protocol PRN Reason: Hypoglycemia Protocol Stop: 10/03/21 00:29 Duloxetine HCl (Duloxetine Hcl 30 Mg Cap) 30 mg PO DAILY ANDREW Stop: 10/03/21 08:59 Last Admin: 09/04/21 08:39 Dose: 30 mg Documented by: Duloxetine HCl (Duloxetine Hcl 60 Mg Cap) 60 mg PO DAILY ANDREW Stop: 10/03/21 08:59 Last Admin: 09/04/21 08:39 Dose: 60 mg Documented by: Furosemide (Furosemide 40 Mg Tab) 40 mg PO DAILY PRN PRN Reason: Edema Stop: 10/03/21 00:04 Glucagon (Glucagon For Inj 1 Mg Vial) 1 mg IM UD PRN; Protocol PRN Reason: Hypoglycemia Protocol Stop: 10/03/21 00:29 Glucose (Glucose 40% Gel 15 Gm Tube) 15 - 30 gm PO UD PRN; Protocol PRN Reason: Hypoglycemia Protocol Stop: 10/03/21 00:29 Glucose (Glucose 10 Tabs/Tube) 4 - 8 tabs PO UD PRN; Protocol PRN Reason: Hypoglycemia Protocol Stop: 10/03/21 00:29 Sodium Chloride (Nss 1000ml) 1,000 mls @ 100 mls/hr IV .Q10H ANDREW Stop: 10/03/21 00:04 Last Admin: 09/04/21 10:13 Dose: 100 mls/hr Documented by: Insulin Aspart (Insulin Aspart Per Unit) 0 units SC ACHS ANDREW Stop: 10/03/21 07:29 Last Admin: 09/04/21 07:55 Dose: Not Given Documented by: Levothyroxine Sodium (Levothyroxine Sodium 125 Mcg Tablet) 250 mcg PO MoTuWeThFrSa@0630 [facility] Stop: 10/03/21 06:29 Last Admin: 09/04/21 06:15 Dose: 250 mcg Documented by: Levothyroxine Sodium (Levothyroxine Sodium 125 Mcg Tablet) 375 mcg PO Melo@0630 [facility] Stop: 10/05/21 06:29 Miscellaneous (Carbohydrates For Hypoglycemia ) 15 - 30 gm PO UD PRN PRN Reason: Hypoglycemia Treatment Stop: 10/03/21 00:29 Miscellaneous Information (Pharmacist Discharge Med Rec Consult) 1 ea N/A UD PRN PRN Reason: Consult Stop: 10/03/21 00:04 Morphine Sulfate (Morphine Sulfate Cr 15 Mg Tabcr) 15 mg PO BID ANDREW Stop: 09/17/21 20:59 Last Admin: 09/04/21 08:39 Dose: 15 mg Documented by: Morphine Sulfate (Morphine Sulfate Ir 15 Mg Tab (Immediate Release)) 15 mg PO TID PRN PRN Reason: Pain Stop: 09/17/21 17:08 Last Admin: 09/04/21 02:59 Dose: 15 mg Documented by: Morphine Sulfate (Morphine Sulfate 2 Mg/Ml Carp) 2 mg IV Q8H PRN PRN Reason: Pain Stop: 09/17/21 00:27 Nitroglycerin (Nitroglycerin Sl 0.4 Mg/Tab Tab) 0.4 mg SL UD PRN PRN Reason: Chest Pain Stop: 10/03/21 00:04 Ondansetron HCl (Ondansetron Inj 2 Mg/Ml 2 Ml Vial) 4 mg IV Q6H PRN PRN Reason: Nausea Stop: 10/03/21 00:04 Last Admin: 09/03/21 16:04 Dose: 4 mg Documented by: Ondansetron HCl (Ondansetron 8mg Od Tab) 8 mg PO Q8 PRN PRN Reason: Nausea Stop: 10/03/21 00:04 Last Admin: 09/03/21 19:41 Dose: 8 mg Documented by: Polyethylene Glycol (Polyethylene (Miralax) 17 Gm Pack) 17 gm PO DAILY PRN PRN Reason: Constipation Stop: 10/03/21 00:04 Topiramate (Topiramate 25 Mg Tab) 25 mg PO [facility] Stop: 10/03/21 15:44 Last Admin: 09/04/21 08:39 Dose: 25 mg Documented by: Trazodone HCl (Trazodone Hcl 100 Mg Tab) 100 mg PO [facility] Stop: 10/03/21 20:59 Last Admin: 09/03/21 20:08 Dose: 100 mg Documented by:
[2021-09-04] MEDS ORDERED: ENOXAPARIN INJ 40 MG/0.4 ML SYR SQ SCH (12:15)
[2021-09-04] MEDS ORDERED: CLOPIDOGREL BISULFATE 75 MG TAB PO SCH (13:00)
[2021-09-04] MEDS ORDERED: NICOTINE 14 MG/24 HR PATCH TD SCH (14:15)
--- NOTE | 2021-09-04 14:58 | Progress Notes ---
NEUROLOGY PROGRESS NOTE DATE OF PROGRESS NOTE: 09/04/2021. CHIEF COMPLAINT: Headache. SUBJECTIVE: The patient was seen and examined this morning. She is sitting upright in bed, talking on the phone, eating her lunch. Headache has improved to her baseline. She is hopeful to go home an d get a good night's rest. She denies any new complaints or concerns. Her right sided weakness has improved. OBJECTIVE: VITAL SIGNS: Blood pressure 106/63, pulse is 54, respiratory rate 17, temperature is 37.1 degrees Ce lsius, oxygen saturation 94% on room air. GENERAL: She is awake, alert, oriented to person, place, and time. She appears in no acute distress . HEAD: Atraumatic, normocephalic. NECK: Supple. ENT: Eyes are midline. Tongue is midline. NEUROLOGIC: Speech is clear. She is following simple commands. Shoulder abduction is 5/5, inteross eous is 5/5 in terms of muscle strength testing. Sensation is intact to light touch. She has no jarocho latricia with [id number] testing. ASSESSMENT AND PLAN: A 51-year-old female admitted with suspected complex migraine headache, now imp roved. Headache is currently back to baseline. Described as a bifrontal temporal headache. Agree w ith titrating Topamax as an outpatient. She had good response to this medication in the past. We wi ll continue Plavix for secondary stroke prevention. Otherwise, Neurology followup as an outpatient. Please contact me with any additional questions or concerns. Job ID: [id number]
--- NOTE | 2021-09-04 15:21 | Discharge Summary ---
Date of Service September 04, 2021 Admission HPI Per Admitting Provider A 51-year-old female with past medical history significant for hypothyroidism, primary hyperthyroidism, type 2 diabetes, irritable bowel syndrome, fibromyalgia, bulbar lumbar disk, migraine, chronic pain syndrome, opiate d ependence, tobacco use disorder, generalized anxiety disorder, history of depression, who was brought in because she was found unresponsive by her son. As per around 3:00 or 3:15, she was fine. She ate her lunch at 1:00 p.m. and around 6:30 p.m. when her son came, she was found unresponsive and EMS was called and the EMS called stroke alert as they felt left side was flaccid and also facial droop. In the ER on arrival, it seems her speech was somewhat difficult to understand, occasionally garbled but was able to move left extremities thought they were weak. CTA of the head and neck and CT of the head were unremarkable. [facility] neurologist recommended MRI scan and further inpatient evaluation. Symptoms are somewhat improving. Currently, the patient is alert, awake, and oriented x3. Knows her date of , knows her 's name, knows she is in the hospital. Does not know what happened. Answering appropriately. Speech is clear. Still has weakness involving the extremities, but more on the left side. She can lift her right upper and lower extremities, but could not lift her left extremities. Questionable slight facial droop on the left side. No difficulty swallowing. Has some complaints of headaches. She has history of migraines, history of chronic pain and also complaining of some back pain. She states her vision is blurry. No earache, no runny nose, no sore throat, no cough, no fevers, no nausea, no chest pain, no shortness of breath, no abdominal pain. Normal bowel and bladder movements otherwise. Before this happened, she was fine except complained of some generalized weakness as per . Currently hemodynamically stable. Admission Exam Per Admitting Provider GENERAL: The patient is obese, currently somewhat drowsy, but not in acute distress. VITAL SIGNS: Temperature afebrile, pulse 75, respiratory rate 16, blood pressure 131/76, oxygen 98% on 2 liters. HEENT: Pupils equal, round and reactive to light. Extraocular muscles intact. Oral mucosa moist. No obvious facial droop. NECK: No JVD, no neck masses. CARDIOVASCULAR: S1 and S2 heard. Regular rate and rhythm. No murmur, no gallop. RESPIRATORY SYSTEM: Normal AP diameter. No accessory muscle use. No wheezing, no crackles. ABDOMEN: Soft, bowel sounds present, nontender, no distention. CENTRAL NERVOUS SYSTEM: Alert and oriented x3. Recent and remote memory intact. Speech is clear. Questionable left-sided facial droop, not able to lift left extremities. Sensation is intact. Position sense intact. Principal Diagnosis Complicated migraine with left sided weakness Discharge Exam General: Lying in bed, in some discomfort due to pain, on room air HEENT: EOMI, YELENA, MMM Chest: Clear breath sounds bilaterally, no wheezes or crackles CVS: Regular rate and rhythm, normal heart sounds, no murmur Abdomen: Soft, non tender, not distended, normal bowel sounds Neuro: Awake, alert, oriented, conversing well. No dysarthria. LUE and LLE strength 4/5, 5/5 on right side; Decreased sensation on left face, LUE and LLE, normal on the right side Extremities: No cyanosis, clubbing or edema Discharge Data Allergies Allergy/AdvReac Type Severity Reaction Status Date / Time gabapentin Allergy Severe anaphylaxis Verified 03/22/21 10:40 tramadol Allergy Severe ANAPHYLAXIS Verified 03/22/21 10:40 chlorpheniramine Allergy Intermediate SHORTNESS Verified 03/22/21 10:40 OF BREATH guaifenesin Allergy Intermediate SHORTNESS Verified 03/22/21 10:40 OF BREATH Sulfa (Sulfonamide Allergy Unknown Verified 09/02/21 21:13 Antibiotics) metoclopramide AdvReac Intermediate anxiety Verified 09/02/21 21:13 aspirin AdvReac TINNITUS Verified 09/02/21 21:13 Corticosteroids AdvReac Agitated Verified 09/02/21 21:13 (Glucocorticoids) SYMPATHOMIMETICS Allergy Unknown Uncoded 09/02/21 21:13 Consultations 09/02/21 21:02 ED Decision to Admit Stat 09/03/21 08:00 Consult Neurology Routine Ordered Studies 09/02/21 19:18 CT angio head w con Stat CT angio neck with con Stat CT head/brain wo con Stat 09/03/21 00:05 MR brain wo con Urgent Hospital Course (1) Intractable complicated migraine: (2) Stroke-like symptom: (3) Chronic back pain: 51 year old female with migraine presented to the ED 09/02 via EMS for unresponsiveness and left sided weakness. Intractable complicated migraine with left sided weakness and paresthesia- likely the cause of her stroke like symptoms rather than CVA, as suggested by history and negative work up. Stroke work up has been negative with negative CT head, CTA and MRI brain. Revisited later today around 3 pm. Left sided weakness and paresthesia have resolved, headache significantly improved, now back to baseline. Treated with iv depacon and IVF, and resumed on topamax. Seen by neurology and PT and cleared for discharge home. Talked about home therapy, she declined saying she has adequate help at home round the clock if she needs and she will take it easy. Recommendations per neuro -restart topamax 25 mg hs x 5 days then 50 mg x 5 days then 75 mg x 5 days then 100 mg at bedtim - adequate hydration, avoid caffeine, avoid maxalt and fioricet - consider nurtec or ubrelvy as outpatient - stop smoking - f/u with neurology in 4-6 weeks Stroke like symptoms- likely from above. CT head, MRI brain, CTA head and neck negative for stroke, TTE with no shunting. Neuro recommended plavix for life given aspirin allergy for secondary stroke prevention. Added lipitor for the same given some dyslipidemia and ASCVD risk. Tele unremarkable Hypothyroidism- TSH mildly elevated, T4 normal, continue synthroid. Recommend repeat TFT in 6 weeks. DM-2- resume metformin Chronic pain syndrome on chronic opiate- recommend cutting down on home morphine. She sees pain management doctor AZAR/depression- continue cymbalta, trazodone Fibromyalgia Tobacco abuse- she wants to quit smoking. She wants to try nicotine patch and was prescribed. Recommended she see her PCP for Chantix if she is interested. Also asked her at bedside to quit smoking to help her quit. Recommended that she not use nicotine patch is she decides to smoke, she verbalized understanding. Total Time Total Time Spent Total Time Spent (In Minutes): 55 Discharge Plan Discharge Items Patient Disposition: Home - Self-Care Reason For Visit: STROKE LIKE SYMPTOMS Discharge Diagnosis: Complicated migraine with left sided weakness and paresthesia, r/o TIA Activity: Resume your previous activity Non-emergency contact: Primary Care Provider and Neurologist Call non-emergency contact if: you have any medication questions, your symptoms worsen and your pain is worsening Follow-up/Referrals: Dajuan Bell, [Primary Care Provider] - Diet: Regular Addtl Attending Provider Instructions: Your symptoms are likely from migraine and it is resolved Continue topamax as below ( topamax 25 mg hs x 5 days then 50 mg x 5 days then 75 mg x 5 days then 100 mg at bedtime) Stop using maxalt. Stop smoking. Keep hydrated. Try nicotine patch to help quit smoking. You can talk to your family doctor about starting Chantix. Recommend cutting down on your pain medications and baclofen Talk to your neurology about nurtec or ubrelvy for migraine attack Continue plavix and lipitor for secondary stroke prevention Follow up with neurology in 4-6 weeks Pending Studies at Discharge: No Stand-Alone Forms: My [facility] [employer], Smoking Cessation Medications and DC Order Prescriptions: New clopidogrel 75 mg tablet 75 mg PO DAILY Qty: 30 RF: 0 topiramate 25 mg Tablet 50 mg PO DIRECTED Qty: 60 RF: 0 nicotine [Nicoderm CQ] 21 mg/24 hr patch 24 hour 1 patch transdermal DAILY Qty: 28 RF: 0 atorvastatin [Lipitor] 10 mg tablet 10 mg PO HS Qty: 30 RF: 0 Continued morphine 15 mg tablet extended release 15 mg PO TID RF: 0 morphine 15 mg tablet 15 mg PO TID PRN (Reason: Pain) RF: 0 duloxetine 30 mg capsule,delayed release(DR/EC) 30 mg PO DAILY RF: 0 duloxetine 60 mg capsule,delayed release(DR/EC) 60 mg PO DAILY RF: 0 celecoxib 200 mg capsule 200 mg PO DAILY PRN (Reason: Pain) RF: 0 levothyroxine 125 mcg tablet 250 mcg PO 6XWK RF: 0 levothyroxine 125 mcg tablet 375 mcg PO WK RF: 0 metformin 500 mg tablet extended release 24 hr 500 mg PO DAILY RF: 0 ondansetron 8 mg tablet,disintegrating 8 mg translingual Q8 PRN (Reason: Pain) RF: 0 baclofen 10 mg tablet 10 mg PO TID PRN (Reason: MUSCLE RELAXANT) RF: 0 promethazine 25 mg tablet 25 mg PO Q6 PRN (Reason: Nausea) RF: 0 furosemide [Lasix] 40 mg Tablet 40 mg PO DAILY PRN (Reason: Edema) RF: 0 polyethylene glycol 3350 [Miralax] 17 gram Powder In Packet 17 g PO DAILY PRN (Reason: Constipation) RF: 0 nitroglycerin 0.4 mg tablet, sublingual 0.4 mg sublingual DIRECTED RF: 0 trazodone 50 mg Tablet 100 mg PO HS RF: 0 Discharge Orders: Discharge Order (Routine); Ordered 09/04/21 Ordered By: Yousif Maxwell/Other Patient Handouts: Managing Type 2 Diabetes, 5 Steps for Eating Healthier Admission Data Admit Date/Time: 09/02/21 23:08 Attending Provider: Yousif Payne Admit Provider: Edward Mahoney Primary Care Provider: Dajuan Bell Other Providers: Edward Mahoney ; Myah Villa ; Gerry Arriola ; Myah Saini ; Lewis Krueger Other Interventions: Discharge Summary Assessment (RN) Last Done: 09/04/21 15:29
[2021-09-05] MEDS ORDERED: LEVOTHYROXINE SODIUM 125 MCG TABLET PO SCH (06:30)
[2021-09-05 12:06] LABS: Codeine Urine NEGATIVE ng/mL (<50); Hydrocodone Urine NEGATIVE ng/mL (<50); Hydromor Urine NEGATIVE ng/mL (<50); Morphine Urine 2590 ng/mL (<50); Norhydrocodone Conf Ur NEGATIVE ng/mL (<50); Noroxycodone Urine NEGATIVE ng/mL (<50); Oxycodone Urine NEGATIVE ng/mL (<50); Oxymorph Urine NEGATIVE ng/mL (<50)
== END 2021-09-04 16:10 | disposition home or self-care (01) ==
LOC: ED 19:25 → INTOOBSV 23:08 → 2E 23:08

== ENCOUNTER 2021-09-30 18:51 | Observation (INO) ==
[2021-09-30 20:52] LABS: Hematocrit (blood only) 47.6 % (37-47); Hemoglobin 15.7 g/dL (12.0-16.0); Mean Corpuscular Hemoglobin 30.4 pg (25-34); Mean Corpuscular Volume 92.2 fL (80-100); Mean Platelet Volume 10.5 fL (7.4-10.4); Platelet Count 302 K/uL (130-400); RDW Coefficient of Variation 14.4 % (11.5-14.5); RDW Standard Deviation 48.6 fL (36.4-46.3); Red Blood Count 5.16 M/uL (4.2-5.4); White Blood Count 11.07 K/uL (4.8-10.8)
[2021-09-30 21:06] LABS: Basophils # (auto) 0.03 K/uL (0-0.2); Basophils % (auto) 0.3 %; Eosinophils # (auto) 0.06 K/uL (0-0.5); Eosinophils % (auto) 0.5 %; Immature Granulocytes # (auto) 0.02 K/uL (0.00-0.02); Immature Granulocytes % (auto) 0.2 %; Lymphocytes # (auto) 2.29 K/uL (1.2-3.4); Lymphocytes % (auto) 20.7 %; Monocytes # (auto) 0.48 K/uL (0.11-0.59); Monocytes % (auto) 4.3 %; Neutrophils # (auto) 8.19 K/uL (1.4-6.5)
[2021-09-30 21:09] LABS: Albumin Globulin Ratio 1.3 (0.9-2); Albumin Level 4.3 gm/dl (3.4-5.0); BUN Creatinine Ratio 13.2 (10-20); Bilirubin,Total 0.5 mg/dl (0.2-1.0); Calcium 10.3 mg/dl (8.5-10.1); Creatinine Clr Calc Pharmacy 85.3 ml/min; Est GFR (African American) 70.9 ml/min; Est GFR (Non-African American) 61.2 ml/min; Globulin 3.2 gm/dl (2.5-4.0); Potassium 3.8 mmol/L (3.5-5.1); Total Protein 7.5 gm/dl (6.0-8.3)
[2021-09-30] MEDS ORDERED: ACETAMINOPHEN 1,000 MG/100 ML VIAL IV STA (22:06)
[2021-09-30] MEDS ORDERED: SODIUM CHLORIDE 0.9% 1000ML 1,000 ML IV ONE (22:06)
[2021-09-30] MEDS ORDERED: KETOROLAC TROMETHAMINE 15 MG/ML VIAL IV STA (22:06)
[2021-09-30] MEDS ORDERED: ONDANSETRON INJ 2 MG/ML 2 ML VIAL IV STA (22:07)
[2021-09-30] MEDS ORDERED: FAMOTIDINE 20MG IV PUSH 20 MG/5 ML SYR IV STA (22:07)
[2021-09-30] MEDS ORDERED: HALOPERIDOL LACTATE 5 MG in SODIUM CHLORIDE 0.9% 500 ML IV STA (22:07)
[2021-09-30 22:37] LABS: Pregnancy Test, Serum Negative (Negative)
[2021-09-30 22:38] LABS: Magnesium 2.3 mg/dl (1.7-2.4); Phosphorus 1.9 mg/dl (2.5-4.9)
[2021-09-30 23:03] LABS: Troponin I High Sensitivity 4.2 pg/ml (0-14)
[2021-09-30] MEDS ORDERED: POTASSIUM PHOS 3 MMOL/1 ML INFUSION IV STA (23:04)
--- NOTE | 2021-09-30 23:17 | Emergency Department Note ---
Impression & Plan Chronic migraine, Hypophosphatemia, Intractable nausea and vomiting ED Provider Note NAME: ALLAN FLORENCE AGE: 51 SEX: F ARRIVES VIA: Walk-In INFORMANT: Patient ED PROVIDER(S): Casa Santoro MD CHIEF COMPLAINT: Migraine PLAN: Disposition: Admit MEDICAL DECISION MAKING: The patient is a pleasant 51-year-old woman with a past medical history of chronic migraine headaches with history of complex migraine though TIA was not excluded and so is on Plavix for prevention, hypothyroidism, type 2 diabetes, IBS, fibromyalgia, lumbar disc disease, chronic pain syndrome, opioid dependency, tobacco use disorder, anxiety and depression who presents to to the emergency department for continuation of her chronic migraine which has persisted since her recent admission to this facility from 09/02-09/04 where she was also seen in the emergency department by this provider 2 days ago on 09/28. During her admission the patient had negative CTA of the head and neck and had further negative MRI. The patient reports she feels as her symptoms have progressively worsened since her emergency department visit and now has worsening nausea and vomiting. She reports she did follow-up with her primary care provider yesterday and there were no acute concerns per her understanding. He was offered the option for admission during her last emergency department visit but she did prefer to trial outpatient management. However today she reports she does feel she needs admitted to control her symptoms better. On arrival the patient uncomfortable but no acute distress, afebrile stable vital signs. She appears clinically dry. She has no focal weakness. EKG without overt acute ischemia. WBC 11K nonspecific. Hemoglobin and platelets within normal limits. Chemistry without metabolic acidosis. Phosphorus 1.9 with repletion provided. Electrolytes and LFTs otherwise unremarkable. High-sensitivity troponin 4.2, within normal limits. hCG was negative. UA without convincing evidence of infection. Covid-19 RNA, NAAT negative. CT of the head per preliminary stat rad report was negative for acute process. Patient was treated with IV fluid hydration, APAP, Zofran as well as 5 mg of Haldol in 500 cc of NS for migraine. Case was discussed with Dr. Mahoney, [facility] hospitalist, who will evaluate the patient for admission. Triage Nursing notes reviewed and agree them. Prior medical records reviewed Vital Signs: reviewed and remarkable for no significant abnormalities Differential diagnosis: Migraine headache, meningitis, sinusitis, CO exposure, ICH, SAH, infection, fredrick or, headache, sinus thrombosis, arterial dissection, as well as other pathologies. ER treatment provided: See below. Diagnostics interpreted by me: ECG: Sinus bradycardia, 57 bpm, no ectopy, nonspecific T wave abnormality, no overt ST elevation or depression, QTC 393, QRS 76 Cardiac Monitoring: An order for continuous cardiac monitoring was placed and demonstrated sinus bradycardia, 57 bpm, no ectopy. Laboratory studies: See below Imaging studies: See below Consultation(s): Case was discussed with Dr. Mahoney, [facility] hospitalist, who will evaluate the patient for admission. HPI: The patient is a pleasant 51-year-old woman with a past medical history of chronic migraine headaches with history of complex migraine though TIA was not excluded and so is on Plavix for prevention, hypothyroidism, type 2 diabetes, IBS, fibromyalgia, lumbar disc disease, chronic pain syndrome, opioid dependency, tobacco use disorder, anxiety and depression who presents to to the emergency department for continuation of her chronic migraine which has persisted since her recent admission to this facility from 09/02-09/04 where she was also seen in the emergency department by this provider 2 days ago on 09/28. During her admission the patient had negative CTA of the head and neck and had further negative MRI. The patient reports she feels as her symptoms have progressively worsened since her emergency department visit and now has worsening nausea and vomiting. She reports she did follow-up with her primary care provider yesterday and there were no acute concerns per her understanding. He was offered the option for admission during her last emergency department visit but she did prefer to trial outpatient management. However today she reports she does feel she needs admitted to control her symptoms better. ROS: See above HPI for pertinent positives & negatives. A total of 10 systems reviewed and were otherwise negative. VITALS:See Below PHYSICAL EXAMINATION: GENERAL: Awake, alert, uncomfortable-appearing, in no distress, BMI 34.8. HENT: Normocephalic, atraumatic. Oropharynx with dry mucous membranes and otherwise unremarkable. EYES: Normal conjunctiva. Sclera non-icteric. EOMI. No nystamgus. PEARRL. NECK: Supple. No nuchal rigidity. FROM. No JVD. RESPIRATORY: Clear to auscultation. CARDIAC: Regular rate, normal rhythm. Extremities warm and well perfused. Pulses equal. ABDOMEN: Soft, non-distended. No tenderness to palpation. No rebound or guarding. No masses. RECTAL: Deferred. MUSCULOSKELETAL: Chest examination reveals no tenderness. The back is symmetrical on inspection without obvious abnormality. There is no CVA tenderness to palpation. No joint edema. LOWER EXTREMITIES: Calves are equal size bilaterally and non-tender. No edema. No discoloration. NEURO: Normal sensorium. No sensory or motor deficits noted. 5/5 strength and SILT x 4 extremities. Cerebellar function intact including [id number], alternating palms, [id number]. SKIN: No rash or jaundice noted. Casa Santroo MD Past Med/Surg History Medical History Acute exacerbation of chronic low back pain Anxiety Atelectasis Back pain Bulging lumbar disc Small broad-based posterior disc bulge with a small right paracentral focal disc protrusion Cardiomyopathy 2014 - thought to be stress induced, reported normal dobutamine stress and echo after Chronic back pain Chronic pain syndrome Depression Fibromyalgia H/O traumatic brain injury Hypokalemia Hypothyroidism (Unknown) IBS (irritable bowel syndrome) Intractable back pain Intractable nausea and vomiting Migraines Opiate dependence Tobacco abuse Surgical History Bilateral tubal ligation (Unknown) section (Unknown) H/O colonoscopy "2006 path normal" H/O cystoscopy H/O esophagogastroduodenoscopy "2006 path normal" History of knee surgery Hx of appendectomy Hx of cholecystectomy Hx of hysterectomy S/P lymph node biopsy "deep cervical inflammatory node 2007" Family History Other Diabetes Hypertension Thyroid disorder Social History Smoking Status: Current every day smoker Tobacco Type: Cigarettes Cigarettes Per Day: 10; Second Hand Exposure: Yes; Hx Alcohol Use: No Hx Substance Use: Yes Last Used Substance: Unknown Substance Use Type Other:: Patient is prescribed opiate Preferred Language: Namibian Communication Ability: Effective Visual Impairment: Partially Limited Newspaper Illustrator Required: No Beliefs That Will Affect Care: None marital status: Current Living Situation: Spouse Current Living Situation Comment: grandson Feels Safe at Home: Yes Assistive Devices: Walker Allergies Allergies Allergy/AdvReac Type Severity Reaction Status Date / Time gabapentin Allergy Severe anaphylaxis Verified 09/30/21 21:35 tramadol Allergy Severe ANAPHYLAXIS Verified 09/30/21 21:35 chlorpheniramine Allergy Intermediate SHORTNESS Verified 09/30/21 21:35 OF BREATH guaifenesin Allergy Intermediate SHORTNESS Verified 09/30/21 21:35 OF BREATH Sulfa (Sulfonamide Allergy Unknown Unknown Verified 09/30/21 21:35 Antibiotics) aspirin AdvReac Intermediate TINNITUS Verified 09/30/21 21:35 Corticosteroids AdvReac Intermediate Agitated Verified 09/30/21 21:35 (Glucocorticoids) metoclopramide AdvReac Intermediate anxiety Verified 09/30/21 21:35 SYMPATHOMIMETICS Allergy Unknown Unknown Uncoded 09/30/21 21:35 Home Meds Home Medications Medication Instructions Recorded Confirmed duloxetine 30 mg capsule,delayed 30 mg PO DAILY@1500 09/02/21 09/30/21 release duloxetine 60 mg capsule,delayed 60 mg PO DAILY@1500 09/02/21 09/30/21 release furosemide 40 mg tablet (Lasix) 40 mg PO DAILY PRN 09/02/21 09/30/21 metformin 500 mg tablet,extended 500 mg PO QAM 09/02/21 09/30/21 release 24 hr morphine 15 mg immediate release 15 mg PO BID PRN 09/02/21 09/30/21 tablet morphine 15 mg tablet,extended 15 mg PO TID 09/02/21 09/30/21 release nitroglycerin 0.4 mg sublingual 0.4 mg SUBLINGUAL DIRECTED PRN 09/02/21 09/30/21 tablet ondansetron 8 mg disintegrating 8 mg TRANSLINGUAL Q8 PRN 09/02/21 09/30/21 tablet polyethylene glycol 3350 17 gram 17 g PO DAILY PRN 09/02/21 09/30/21 oral powder packet (Miralax) promethazine 25 mg tablet 25 mg PO Q6 PRN 09/02/21 09/30/21 clopidogrel 75 mg tablet 75 mg PO DAILY@1500 09/28/21 09/30/21 levothyroxine 125 mcg tablet See Rx Instructions .ROUTE .COMPLEX 09/28/21 09/30/21 topiramate 100 mg tablet 100 mg PO HS 09/28/21 09/30/21 Previous Rx's Medication Instructions Recorded nicotine 21 mg/24 hr daily 1 patch TRANSDERMAL DAILY #28 ea 04/02/22 transdermal patch (Nicoderm CQ) Results & Data (ED) Vital Signs Vital Signs - 24 hr 09/30/21 18:54 09/30/21 21:19 09/30/21 23:09 Temperature 36.3 C L Temperature Source Temporal Artery Scan Pulse Rate 66 Pulse Rate [Left] 77 64 Pulse Rhythm [Left] Regular Regular Pulse Strength [Left] Normal Normal Respiratory Rate 18 16 18 Respiratory Effort / Characteristics Non-Labored Non-Labored Respiratory Depth Normal Normal Respiratory Pattern Regular Regular Blood Pressure 150/96 H Blood Pressure [Left Arm] 124/76 125/70 Blood Pressure Mean 114 Blood Pressure Mean [Left Arm] 92 88 Blood Pressure Position [Left Arm] Sitting Sitting Pulse Oximetry 98 97 98 Oxygen Delivery Method Room Air Room Air Room Air Sepsis Recent Fever Within 48 Hours No Sepsis New/Unexplained Change in Mental Status N/A Sepsis Action Taken by Nursing No Action Required Laboratory Data Attestation: I reviewed the patient's lab results. Result diagrams: 09/30/21 20:32 09/30/21 20:32 Lab Results 09/30/21 09/30/21 09/30/21 Range/Units 20:32 20:32 20:32 WBC 11.07 H (4.8-10.8) K/uL RBC 5.16 (4.2-5.4) M/uL Hgb 15.7 (12.0-16.0) g/dL Hct 47.6 H (37-47) % MCV 92.2 (80-100) fL MCH 30.4 (25-34) pg MCHC 33.0 (32-36) g/dL RDW Std Deviation 48.6 H (36.4-46.3) fL RDW Coeff of Roro 14.4 (11.5-14.5) % Plt Count 302 (130-400) K/uL MPV 10.5 H (7.4-10.4) fL Immature Gran % (Auto) 0.2 % Neut % (Auto) 74.0 % Lymph % (Auto) 20.7 % [place] % (Auto) 4.3 % Eos % (Auto) 0.5 % Baso % (Auto) 0.3 % Neut # (Auto) 8.19 H (1.4-6.5) K/uL Lymph # (Auto) 2.29 (1.2-3.4) K/uL [place] # (Auto) 0.48 (0.11-0.59) K/uL Eos # (Auto) 0.06 (0-0.5) K/uL Baso # (Auto) 0.03 (0-0.2) K/uL Immature Gran # (Auto) 0.02 (0.00-0.02) K/uL Sodium 139 (136-145) mmol/L Potassium 3.8 (3.5-5.1) mmol/L Chloride 111 H (98-107) mmol/L Carbon Dioxide 24 (21-32) mmol/L Anion Gap 4 (3-11) BUN 14 (6-23) mg/dl Creatinine 1.06 (0.6-1.2) mg/dl Est Cr Clr Drug Dosing 85.3 ml/min Est GFR ( Amer) 70.9 ml/min Est GFR (Non-Af Amer) 61.2 ml/min BUN/Creatinine Ratio 13.2 (10-20) Glucose 100 H (70-99(Fasting)) mg/dl Calcium 10.3 H (8.5-10.1) mg/dl Phosphorus 1.9 L (2.5-4.9) mg/dl Magnesium 2.3 (1.7-2.4) mg/dl Total Bilirubin 0.5 (0.2-1.0) mg/dl AST 13 (13-39) U/L ALT 9 (7-52) U/L Alkaline Phosphatase 114 H (34-104) U/L Troponin I High Sens 4.2 (0-14) pg/ml Total Protein 7.5 (6.0-8.3) gm/dl Albumin 4.3 (3.4-5.0) gm/dl Globulin 3.2 (2.5-4.0) gm/dl Albumin/Globulin Ratio 1.3 (0.9-2) HCG, Qual (Negative) Urine Color Urine Appearance (Clear) Urine pH (4.5-7.5) Ur Specific Center (1.000-1.030) Urine Protein (Negative) Urine Glucose (UA) (Negative) Urine Ketones (Negative) Urine Blood (Negative) Urine Nitrite (Negative) Urine Bilirubin (Negative) Urine Urobilinogen (Negative) Ur Leukocyte Esterase (Negative) Urine WBC (Auto) (0-5) /hpf Urine RBC (Auto) (0-4) /hpf U Hyaline Cast (Auto) (0-5) /lpf U Epithel Cells (Auto) (0-5) /lpf Urine Bacteria (Auto) (Negative) SARS-CoV-2, RNA, NAAT (NEGATIVE) 09/30/21 09/30/21 10/01/21 Range/Units 20:37 22:55 00:09 WBC (4.8-10.8) K/uL RBC (4.2-5.4) M/uL Hgb (12.0-16.0) g/dL Hct (37-47) % MCV (80-100) fL MCH (25-34) pg MCHC (32-36) g/dL RDW Std Deviation (36.4-46.3) fL RDW Coeff of Roro (11.5-14.5) % Plt Count (130-400) K/uL MPV (7.4-10.4) fL Immature Gran % (Auto) % Neut % (Auto) % Lymph % (Auto) % [place] % (Auto) % Eos % (Auto) % Baso % (Auto) % Neut # (Auto) (1.4-6.5) K/uL Lymph # (Auto) (1.2-3.4) K/uL [place] # (Auto) (0.11-0.59) K/uL Eos # (Auto) (0-0.5) K/uL Baso # (Auto) (0-0.2) K/uL Immature Gran # (Auto) (0.00-0.02) K/uL Sodium (136-145) mmol/L Potassium (3.5-5.1) mmol/L Chloride (98-107) mmol/L Carbon Dioxide (21-32) mmol/L Anion Gap (3-11) BUN (6-23) mg/dl Creatinine (0.6-1.2) mg/dl Est Cr Clr Drug Dosing ml/min Est GFR ( Amer) ml/min Est GFR (Non-Af Amer) ml/min BUN/Creatinine Ratio (10-20) Glucose (70-99(Fasting)) mg/dl Calcium (8.5-10.1) mg/dl Phosphorus (2.5-4.9) mg/dl Magnesium (1.7-2.4) mg/dl Total Bilirubin (0.2-1.0) mg/dl AST (13-39) U/L ALT (7-52) U/L Alkaline Phosphatase (34-104) U/L Troponin I High Sens (0-14) pg/ml Total Protein (6.0-8.3) gm/dl Albumin (3.4-5.0) gm/dl Globulin (2.5-4.0) gm/dl Albumin/Globulin Ratio (0.9-2) HCG, Qual Negative (Negative) Urine Color Yellow Urine Appearance Clear (Clear) Urine pH 5.5 (4.5-7.5) Ur Specific Center 1.023 (1.000-1.030) Urine Protein Negative (Negative) Urine Glucose (UA) Negative (Negative) Urine Ketones Negative (Negative) Urine Blood 2+ H (Negative) Urine Nitrite Negative (Negative) Urine Bilirubin Negative (Negative) Urine Urobilinogen Negative (Negative) Ur Leukocyte Esterase Negative (Negative) Urine WBC (Auto) 1-5 (0-5) /hpf Urine RBC (Auto) 5-10 H (0-4) /hpf U Hyaline Cast (Auto) 1-5 (0-5) /lpf U Epithel Cells (Auto) >30 H (0-5) /lpf Urine Bacteria (Auto) 1+ H (Negative) SARS-CoV-2, RNA, NAAT NEGATIVE (NEGATIVE) Administered Medications Discontinued Medications Hydromorphone HCl (Hydromorphone Inj 0.5 Mg/0.5 Ml Syr) 0.5 mg IV NOW STA Stop: 10/01/21 00:36 Last Admin: 10/01/21 02:26 Dose: 0.5 mg Documented by: [id number] Sodium Chloride (Nss 1000ml) 1,000 mls @ 999 mls/hr IV .Q1H1M ONE Stop: 09/30/21 23:06 Last Infusion: 10/01/21 02:26 Dose: 0 mls/hr Documented by: [id number] Admin: 09/30/21 22:37 Dose: 999 mls/hr Documented by: [id number] Acetaminophen (Ofirmev) 1,000 mg in 100 mls @ 400 mls/hr IV NOW STA Stop: 09/30/21 22:20 Last Infusion: 09/30/21 23:15 Dose: 0 mls/hr Documented by: [id number] Admin: 09/30/21 22:36 Dose: 400 mls/hr Documented by: [id number] Famotidine (Pepcid 20mg Iv Push) 20 mg in 5 mls @ 2.5 mls/min IV NOW STA Stop: 09/30/21 22:08 Last Admin: 09/30/21 22:37 Dose: 2.5 mls/min Documented by: [id number] Potassium Phosphate 6 mmol/ (Sodium Chloride) 102 mls @ 88 mls/hr IV 2330 ONE Stop: 10/01/21 00:39 Last Infusion: 10/01/21 02:36 Dose: 0 mls/hr Documented by: [id number] Admin: 10/01/21 01:07 Dose: 88 mls/hr Documented by: [id number] Haloperidol Lactate 5 mg/ (Sodium Chloride) 501 mls @ 999 mls/hr IV 2345 ONE Stop: 10/01/21 00:15 Last Infusion: 10/01/21 01:07 Dose: 0 mls/hr Documented by: [id number] Admin: 10/01/21 00:09 Dose: 999 mls/hr Documented by: [id number] Ketorolac Tromethamine (Ketorolac Tromethamine 15 Mg/Ml Vial) 15 mg IV NOW STA Stop: 09/30/21 22:07 Last Admin: 09/30/21 22:36 Dose: 15 mg Documented by: [id number] Ondansetron HCl (Ondansetron Inj 2 Mg/Ml 2 Ml Vial) 4 mg IV NOW STA Stop: 09/30/21 22:08 Last Admin: 09/30/21 22:37 Dose: 4 mg Documented by: [id number] Potassium Phosphate (Potassium Phos 3 Mmol/1 Ml Infusion) 6 mmol IV NOW STA Stop: 09/30/21 23:05 Last Admin: 10/01/21 01:06 Dose: Not Given Documented by: [id number] Imaging Data Radiologist's Impression: STATRAD Preliminary Findings Only See Final Report For Complete Findings CT HEAD: Comparison: CT head 09/28/21 No acute intracranial process. No skull fracture. Radiologist: Nicholas Norton M.D. Study ready at 23:13 and initial results transmitted at 23:14 Discharge Plan Visit Data Chief Complaint: Headache Stated Complaint: L SIDE NUMBNESS, FACIAL DROOP, VOMITING ED Provider: Casa Santoro Discharge Problem: Chronic migraine, Hypophosphatemia, Intractable nausea and vomiting Patient Disposition: Admitted As Inpatient Discharge Instructions Interventions: ED Discharge Assessment Last Done: 10/01/21 02:36
[2021-09-30] MEDS ORDERED: POTASSIUM PHOSPHATE 6 MMOL in 0.9 % SODIUM CHLORIDE 100 ML IV ONE (23:30)
[2021-09-30] MEDS ORDERED: HALOPERIDOL LACTATE 5 MG in SODIUM CHLORIDE 0.9% 500 ML IV ONE (23:45)
[2021-10-01 00:27] LABS: Appearance Urine Clear (Clear); Bacteria Urine Automated 1+ (Negative); Bilirubin Urine Negative (Negative); Blood Urine 2+ (Negative); Color Urine Yellow; Epithelial Cell Urine Auto >30 /lpf (0-5); Glucose Urine UA Negative (Negative); Ketones Urine Negative (Negative); Leukocyte Esterase Urine Negative (Negative); Nitrite Urine Negative (Negative); Protein Urine Negative (Negative); Specific Gravity Urine 1.023 (1.000-1.030); Urobilinogen Urine Negative (Negative); pH Urine 5.5 (4.5-7.5)
[2021-10-01] MEDS ORDERED: HYDROmorphone INJ 0.5 MG/0.5 ML SYR IV STA (00:35)
[2021-10-01] MEDS ORDERED: ONDANSETRON INJ 2 MG/ML 2 ML VIAL IV PRN (03:05)
[2021-10-01] MEDS ORDERED: MoRPHine SULFATE IR 15 MG TAB (IMMEDIATE RELEASE) PO PRN (03:05)
[2021-10-01] MEDS ORDERED: PROMETHAZINE HCL 25 MG TAB PO PRN (03:05)
[2021-10-01] MEDS ORDERED: ACETAMINOPHEN 325 MG TAB PO PRN (03:05)
[2021-10-01] MEDS ORDERED: NITROGLYCERIN SL 0.4 MG/TAB TAB SL PRN (03:05)
[2021-10-01] MEDS ORDERED: FUROSEMIDE 40 MG TAB PO PRN (03:05)
[2021-10-01] MEDS ORDERED: POLYETHYLENE (MIRALAX) 17 GM PACK PO PRN ×2 (03:05)
[2021-10-01] MEDS ORDERED: SODIUM CHLORIDE 0.9% 1000ML 1,000 ML IV SCH (03:05)
[2021-10-01] MEDS ORDERED: GLUCAGON FOR INJ 1 MG VIAL IM PRN (03:30)
[2021-10-01] MEDS ORDERED: DEXTROSE 50% 50 ML SYRINGE IV PRN (03:30)
[2021-10-01] MEDS ORDERED: GLUCOSE 40% GEL 15 GM TUBE PO PRN (03:30)
[2021-10-01] MEDS ORDERED: CARBOHYDRATES FOR HYPOGLYCEMIA PO PRN (03:30)
[2021-10-01] MEDS ORDERED: GLUCOSE 10 TABS/TUBE PO PRN (03:30)
[2021-10-01] MEDS: LEVOTHYROXINE SODIUM 125 MCG TABLET PO SCH (05:47)
--- NOTE | 2021-10-01 06:32 | History and Physical Report ---
DATE OF ADMISSION: 10/01/2021. CHIEF COMPLAINT: Headache, left-sided numbness. HISTORY OF PRESENT ILLNESS: This is a 51-year-old female with past medical history significant for hypothyroidism with acquired atrophy of thyroid, history of hyperparathyroidism, type 2 diabetes, irritable bowel syndrome, fibromyalgia, bulging lumbar disk, migraine, chronic pain syndrome, opioid dependence, ongoing tobacco use disorder, generalized anxiety disorder, history of depression, who was recently brought in to the hospital for stroke-like symptoms. At that time, she had complained of left-sided weakness and unresponsiveness and all the workup was negative and symptoms were thought to be complicated migraine with left-sided weakness and paresthesias and she was discharged on Topamax. She was also started on Plavix.She was again in the ER on 09/28/2021 with severe headache with some heaviness of left arm and left leg. Again, CTA of the head and neck and CT of head were done, which were unremarkable and she felt better and she was discharged. Had a followup appointment with the PCP yesterday and also at that time she complained of similar symptoms and as symptoms were not getting better, she came to the ER today. She complains of severe headache in the left side of the head and also some numbness in the left side of the face and some blurred vision in the left eye, some numbness and weakness in the left extremities. Resting comfortably and hemodynamically stable. Has some nausea. No runny nose, no sore throat, no cough, no difficulty swallowing. Appetite is okay. No chest pain, no shortness of breath, no abdominal pain. Normal bowel and bladder movements. No swelling in the legs. ALLERGIES: GABAPENTIN, TRAMADOL, CHLORPHENIRAMINE, GUAIFENESIN, SULFA ANTIBIOTICS, ASPIRIN GLUCOCORTICOIDS, METOCLOPRAMIDE, SYMPATHOMIMETICS. PAST MEDICAL HISTORY: As mentioned above. PAST SURGICAL HISTORY: Lymph node biopsy on the right ipsilateral region, C- section, colonoscopy with biopsy, cystoscopy, EGD, EGD with biopsy, injection of lumbosacral spine, laparoscopic appendectomy, ligation of the oviducts, partial hysterectomy, cholecystectomy, video capsule endoscopy. MEDICATIONS: The patient is on Plavix 75 mg p.o. daily, duloxetine 90 mg p.o. daily, Lasix 40 mg p.o. daily p.r.n., levothyroxine as directed, metformin 500 mg p.o. a.m., morphine 15 mg p.o. b.i.d. p.r.n., morphine 15 mg p.o. t.i.d., nicotine patch 1 patch daily, nitroglycerin 0.4 mg sublingual p.r.n., Zofran 8 mg p.o. sublingual t.i.d. p.r.n., MiraLax 17 g p.o. daily p.r.n., promethazine 25 mg p.o. q. 6 hours p.r.n., topiramate 100 mg p.o. at bedtime. FAMILY HISTORY: Significant for maternal grandmother had breast cancer; mother has dementia, diabetes, hypertension, thyroid disorder; father has hypertension; paternal grandfather had prostate cancer. SOCIAL HISTORY: . Smokes 1 pack a day for 20 years. Alcohol, rarely. No drug use. REVIEW OF SYSTEMS: As per HPI. Rest of the review of systems is negative. PHYSICAL EXAMINATION: GENERAL: The patient is obese, not in acute distress. VITAL SIGNS: Temperature 36.3, pulse 64, respiratory rate 18, blood pressure 125/70, oxygen 98% on room air. HEENT: The patient has some photophobia, atraumatic. Oral mucosa moist. NECK: No JVD. No neck masses. CARDIOVASCULAR: S1 and S2 heard. Regular rate and rhythm. No murmur, no gallop. RESPIRATORY SYSTEM: Normal AP diameter. No accessory muscle use. No wheezing, no crackles. ABDOMEN: Soft, bowel sounds present, nontender, no distention. CENTRAL NERVOUS SYSTEM: Cranial nerves II-XII grossly intact. Power 5/5 in right extremities, 4/5 in left extremities. Sensation is intact. co ordination of movements normal. EXTREMITIES: No edema, no erythema. LABORATORY DATA: WBC 11, hemoglobin 15.7, hematocrit 47.6, platelets 302. Sodium 139, potassium 3.8, chloride 111, CO2 of 24, BUN 14, creatinine 1.06, serum glucose 100, calcium 10.3, phosphorus 1.9, magnesium 2.3, total bilirubin 0.5, AST 13, ALT 9, alkaline phosphatase 114. HCG qualitative negative. Troponin I high sensitivity 4.2. Urinalysis, +2 blood, +1 bacteria. COVID rapid test negative. IMAGING DATA: CT of the head, preliminary report unremarkable. EKG: Sinus bradycardia at a rate of 57, nonspecific ST abnormalities. ASSESSMENT AND PLAN: This is a 51-year-old female who presents with ongoing headaches and left-sided numbness. 1. Severe headache and left-sided numbness: Not getting better. Recently in the hospital workup was negative for any stroke and also in the ER on 09/28/2021, CTA of the head and neck was unremarkable. Today CT scan of the head is unremarkable. Possibly ongoing complex migraines. Placed on IV Dilaudid p.r.n. Continue her Topamax and monitor in the Circular. Consult neurology in the a.m. for further recommendation. Also continue Plavix for secondary prevention. 2. Ongoing tobacco abuse, nicotine patch: Needs counseling. 3. Hypothyroidism: Continue her home Synthroid. Follow thyroid profile. 4. Diabetes: Hold metformin. Placed on insulin sliding scale. Follow the blood sugars. 5. Chronic pain syndrome: Continue chronic home pain medications. 6. Anxiety and depression: Continue Cymbalta. 7. Fibromyalgia. 8. Deep venous thrombosis prophylaxis: Sequential compression devices and Lovenox. DISPOSITION: Admit to Circular. PT/OT prior to discharge. Social service to help with discharge planning. Job ID: [id number] [facility]
--- NOTE | 2021-10-01 07:06 | CT Scan Report ---
CT OF THE HEAD WITHOUT CONTRAST CLINICAL HISTORY: migraine COMPARISON STUDY: Head CT and CTA of the head September 28, 2021. MRI of the brain September 03, 2021. CT DOSE: 614.27 mGy.cm TECHNIQUE: Helical axial images of the head were obtained without IV contrast. Automated exposure con trol was utilized for the study. A dose lowering technique was utilized adhering to the principles o f ALARA. FINDINGS: No acute intracranial hemorrhage, midline shift or mass effect is present. The ventricular system is unremarkable. The basal cisterns are patent. No extra-axial collections are present. There are no findings to suggest acute dural sinus thrombosis or acute territorial infarct. No significant calvarial abnormalities are present. Visualized portions of the sinuses and mastoid air cells are sergio ar. IMPRESSION: No acute intracranial findings. ACT 112: Negative or not required by law. Electronically signed by: Yonas Carson M.D. 10/01/2021 7:05 AM
[2021-10-01 08:24] LABS: Hemoglobin 13.8 g/dL (12.0-16.0); Mean Corpuscular Hemoglobin 29.9 pg (25-34); Mean Corpuscular Hgb Conc 32.1 g/dL (32-36); Mean Corpuscular Volume 93.3 fL (80-100); Mean Platelet Volume 10.7 fL (7.4-10.4); Platelet Count 240 K/uL (130-400); RDW Coefficient of Variation 14.6 % (11.5-14.5); RDW Standard Deviation 49.6 fL (36.4-46.3); Red Blood Count 4.61 M/uL (4.2-5.4); White Blood Count 8.77 K/uL (4.8-10.8)
[2021-10-01 08:48] LABS: Basophils # (auto) 0.02 K/uL (0-0.2); Basophils % (auto) 0.2 %; Eosinophils # (auto) 0.14 K/uL (0-0.5); Eosinophils % (auto) 1.6 %; Immature Granulocytes # (auto) 0.02 K/uL (0.00-0.02); Immature Granulocytes % (auto) 0.2 %; Lymphocytes % (auto) 28.5 %; Monocytes # (auto) 0.65 K/uL (0.11-0.59); Monocytes % (auto) 7.4 %; Neutrophils # (auto) 5.44 K/uL (1.4-6.5); Neutrophils % (auto) 62.1 %
[2021-10-01] MEDS ORDERED: LORazepam 2 MG/1 ML VIAL IV STA (08:55)
[2021-10-01 09:05] LABS: BUN Creatinine Ratio 15.1 (10-20); Calcium 9.3 mg/dl (8.5-10.1); Creatinine Clr Calc Pharmacy 100.5 ml/min; Est GFR (African American) 83.1 ml/min; Est GFR (Non-African American) 71.7 ml/min; Magnesium 2.2 mg/dl (1.7-2.4); Phosphorus 2.3 mg/dl (2.5-4.9); Potassium 3.7 mmol/L (3.5-5.1)
[2021-10-01] MEDS: INSULIN ASPART PER UNIT SC SCH ×4 (09:07→20:05)
[2021-10-01] MEDS: MoRPHine SULFATE CR 15 MG TABCR PO SCH ×3 (09:16→20:00)
[2021-10-01] MEDS ORDERED: VALPROATE SOD 500 MG in DEXTROSE 5% 50 ML IV STA (10:39)
[2021-10-01] MEDS: ENOXAPARIN INJ 40 MG/0.4 ML SYR SQ SCH (11:21)
[2021-10-01] MEDS ORDERED: LORazepam 2 MG/1 ML VIAL ONE (12:20)
--- NOTE | 2021-10-01 12:20 | Neurology Consultation ---
Date of Consultation October 01, 2021 Assessment & Plan (1) Stroke-like symptom: 1. MRI brain ordered 2. Continue plavix 75 mg daily 3. optimize HTN, HLD, LDL <70 4. smoking cessation strongly urged 5. PT/OT for discharge needs (2) Paresthesias: (3) Chronic migraine: 1. depakote 500 mg IV given- may repeat in 24 hours 2. increase topamax 100 mg hs to 125 mg pm for now 3. avoid any additional morphine or narcotics for headache management 4. keep well hydrated 5. gabapentin 100 mg with tylenol at onset of headache. will try to get nurtec as outpatient for prn use 6. once medically stable ok to discharge. will follow up with neurology in 4-6 weeks Supervising Physician Co-Signing Physician Notes I have seen and discussed above patient with Dr Myah Saini, neurology. Pt seen over Ipad while Mindidy examined. obtained appropriate hx . Migraine with L hemiparesis, neg mri on this occasion and another, cta head and neg noncontrib. Some nonphysiologic signs on exam, left drift without pronation or change in rapid alternating movements. Agree with Depacon, increase topamax and try Nurtex or Lasmiditan prn as outpt. Would not use triptans in this pt. If she is improved in am, ok to dc with fu with Dr Krueger. MD Selena History of Present Illness Reason for Consultation: Headache, left sided numbness Requesting Physician: Roz Figueredo MD [id number] Attending Physician: Roz Figueredo MD History of Present Illness Jessica is a 51 year old female with PMH- hypothyroidism with acquired atrophy of thyroid, hyperparathyroidism, DM2, IBS, fibromyalgia, bulging lumbar disk, migraine, chronic pain syndrome, opioid dependence, ongoing tobacco use disorder, AZAR, history of depression was recently brought to [facility] 09/03/21 for stroke-like symptoms. She had complained of left-sided weakness and unresponsiveness and all the workup was negative and symptoms were thought to be complicated migraine with left-sided weakness and paresthesias and she was discharged on Topamax. She was started on Plavix.She was again in the ER on 09/28/2021 with severe headache with some heaviness of left arm and left leg.CTA of the head and neck and CT of head were repeated , which were unremarkable and she felt better and she was discharged. She saw her PCP 09/29/21 and again complained of similar symptoms and as symptoms were not getting better and returned to the ER 09/30/21. She had a severe headache in the left side of the head and also some numbness in the left side of the face and some blurred vision in the left eye, some numbness and weakness in the left extremities. She feels better with the depakote infusion. has been up out of bed walking a seems to be doing well. Allergies Allergy/AdvReac Type Severity Reaction Status Date / Time gabapentin Allergy Severe anaphylaxis Verified 09/30/21 21:35 tramadol Allergy Severe ANAPHYLAXIS Verified 09/30/21 21:35 chlorpheniramine Allergy Intermediate SHORTNESS Verified 09/30/21 21:35 OF BREATH guaifenesin Allergy Intermediate SHORTNESS Verified 09/30/21 21:35 OF BREATH Sulfa (Sulfonamide Allergy Unknown Unknown Verified 09/30/21 21:35 Antibiotics) aspirin AdvReac Intermediate TINNITUS Verified 09/30/21 21:35 Corticosteroids AdvReac Intermediate Agitated Verified 09/30/21 21:35 (Glucocorticoids) metoclopramide AdvReac Intermediate anxiety Verified 09/30/21 21:35 SYMPATHOMIMETICS Allergy Unknown Unknown Uncoded 09/30/21 21:35 Home Medications Medication Instructions Recorded Confirmed Type duloxetine 30 mg capsule,delayed 30 mg PO DAILY@1500 09/02/21 09/30/21 History release duloxetine 60 mg capsule,delayed 60 mg PO DAILY@1500 09/02/21 09/30/21 History release furosemide 40 mg tablet (Lasix) 40 mg PO DAILY PRN 09/02/21 09/30/21 History metformin 500 mg tablet,extended 500 mg PO QAM 09/02/21 09/30/21 History release 24 hr morphine 15 mg immediate release 15 mg PO BID PRN 09/02/21 09/30/21 History tablet morphine 15 mg tablet,extended 15 mg PO TID 09/02/21 09/30/21 History release nitroglycerin 0.4 mg sublingual 0.4 mg SUBLINGUAL DIRECTED PRN 09/02/21 09/30/21 History tablet ondansetron 8 mg disintegrating 8 mg TRANSLINGUAL Q8 PRN 09/02/21 09/30/21 History tablet polyethylene glycol 3350 17 gram 17 g PO DAILY PRN 09/02/21 09/30/21 History oral powder packet (Miralax) promethazine 25 mg tablet 25 mg PO Q6 PRN 09/02/21 09/30/21 History nicotine 21 mg/24 hr daily 1 patch TRANSDERMAL DAILY #28 ea 09/04/21 09/30/21 Rx transdermal patch (Nicoderm CQ) clopidogrel 75 mg tablet 75 mg PO DAILY@1500 09/28/21 09/30/21 History levothyroxine 125 mcg tablet See Rx Instructions .ROUTE .COMPLEX 09/28/21 09/30/21 History topiramate 100 mg tablet 100 mg PO HS 09/28/21 09/30/21 History Patient History Medical History Acute exacerbation of chronic low back pain Anxiety Atelectasis Back pain Bulging lumbar disc Small broad-based posterior disc bulge with a small right paracentral focal disc protrusion Cardiomyopathy 2014 - thought to be stress induced, reported normal dobutamine stress and echo after Chronic back pain Chronic pain syndrome Depression Fibromyalgia H/O traumatic brain injury Hypokalemia Hypothyroidism (Unknown) IBS (irritable bowel syndrome) Intractable back pain Intractable nausea and vomiting Migraines Opiate dependence Tobacco abuse Surgical History Bilateral tubal ligation (Unknown) section (Unknown) H/O colonoscopy "2006 path normal" H/O cystoscopy H/O esophagogastroduodenoscopy "2006 path normal" History of knee surgery Hx of appendectomy Hx of cholecystectomy Hx of hysterectomy S/P lymph node biopsy "deep cervical inflammatory node 2007" Family History Other Diabetes Hypertension Thyroid disorder Social History Smoking Status: Current every day smoker Tobacco Type: Cigarettes Cigarettes Per Day: 1 pack per day; Second Hand Exposure: Yes; Do You Dip or Chew Tobacco: No; Tobacco Cessation Education Requested by Patient: No Hx Alcohol Use: No Hx Substance Use: No Preferred Language: Kazakh Communication Ability: Effective Visual Impairment: Partially Limited Rewind Operator Required: No Beliefs That Will Affect Care: None marital status: Current Living Situation: Spouse and Family Current Living Situation Comment: grandson Other Information That Helps Us Care for You: No Feels Safe at Home: Yes Safety Concerns: Feels Safe At This Time Assistive Devices: Walker Review of Systems Review of Systems: All systems reviewed & are unremarkable except as noted in HPI & below Physical Exam Physical Exam: Physical Exam: Constitutional: appearance over nourished, healthy Ears, Nose, Mouth and Throat: mucous membranes moist, no injection and skin normal, eyes normal Cardiovascular: normal S-1 and S-2 and regular rate and rhythm Respiratory: course breath sounds Musculoskeletal: no peripheral edema and good distal pulses Skin: no stigmata of neurocutaneous disease noted and normal and intact Eyes: extraocular muscles intact (EOMI) and pupils equal, round and reactive to light (PERRL) no nystagmus NEUROLOGIC EXAMINATION: Mental status: Alert and interactive Oriented to person Speech fluent with no evidence of aphasia Cranial Nerves smile eye brow raise symmetric Reflexes: Deep tendon reflexes were symmetrical and graded 2/5. down going toes Sensory: light and cool slightly decreased on left side of face and left arm Coordination: Romberg absent, finger to nose , rapid hand movements, heel to christine intact Gait/Stance: Posture normal. Gait normal: with steady with steps, base, turning, heel and toe walking and tandem gait. Motor: Negative for pronator drift of out stretched arms with eyes closed. 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 biceps triceps bilaterally 5/5, hip flex 5/5 patellar plantar flex ext 5/5 , romberg negative Results & Data ([facility]) Vital Signs (Past 12 Hours) Vital Signs Temp Pulse Pulse Resp BP Pulse Ox Pulse Ox 10/01/21 10:47 36.9 C 57 L 18 135/78 96 10/01/21 08:56 62 10/01/21 06:32 36.5 C 59 L 18 109/78 96 10/01/21 06:04 36.4 C L 57 L 18 107/67 94 10/01/21 04:34 53 L 10/01/21 03:05 36.4 C L 57 L 18 107/67 94 94 10/01/21 01:00 36.9 C 68 18 135/75 94 Laboratory Results Abnormal Labs 09/30/21 09/30/21 09/30/21 20:32 20:32 20:32 WBC 11.07 H Hct 47.6 H RDW Std Deviation 48.6 H RDW Coeff of Roro MPV 10.5 H Neut # (Auto) 8.19 H Rutherford # (Auto) Chloride 111 H Anion Gap Glucose 100 H POC Glucose Calcium 10.3 H Phosphorus 1.9 L Alkaline Phosphatase 114 H Urine Blood Urine RBC (Auto) U Epithel Cells (Auto) Urine Bacteria (Auto) 10/01/21 10/01/21 10/01/21 00:09 07:33 07:33 WBC Hct RDW Std Deviation 49.6 H RDW Coeff of Roro 14.6 H MPV 10.7 H Neut # (Auto) Rutherford # (Auto) 0.65 H Chloride 113 H Anion Gap 2 L Glucose POC Glucose Calcium Phosphorus 2.3 L Alkaline Phosphatase Urine Blood 2+ H Urine RBC (Auto) 5-10 H U Epithel Cells (Auto) >30 H Urine Bacteria (Auto) 1+ H 10/01/21 11:35 WBC Hct RDW Std Deviation RDW Coeff of Roro MPV Neut # (Auto) Rutherford # (Auto) Chloride Anion Gap Glucose POC Glucose 104 H Calcium Phosphorus Alkaline Phosphatase Urine Blood Urine RBC (Auto) U Epithel Cells (Auto) Urine Bacteria (Auto) Diagnostic Findings CT head-No acute intracranial hemorrhage, midline shift or mass effect is present. The ventricular system is unremarkable. The basal cisterns are patent. No extra-axial collections are present. There are no findings to suggest acute dural sinus thrombosis or acute territorial infarct. No significant calvarial abnormalities are present. Visualized portions of the sinuses and mastoid air cells are clear. MRI brain-Unremarkable MRI of the brain. No acute intracranial findings. EEG-this is a normal awake and drowsy EEG. There is no evidence of focal slowing or epileptiform activity.
--- NOTE | 2021-10-01 13:21 | Electroencephalogram ---
EEG Procedure Note Date of Service October 01, 2021 Start / End Times Start Time: 10:56 End Time: 11:[address] Myah Saini History A 51-year-old woman with recurrent hemiparesis. No history of seizures. EEG performed for evaluation epileptiform activity. Home Medication List Medication Instructions Recorded Confirmed Type duloxetine 30 mg capsule,delayed 30 mg PO DAILY@1500 09/02/21 09/30/21 History release duloxetine 60 mg capsule,delayed 60 mg PO DAILY@1500 09/02/21 09/30/21 History release furosemide 40 mg tablet (Lasix) 40 mg PO DAILY PRN 09/02/21 09/30/21 History metformin 500 mg tablet,extended 500 mg PO QAM 09/02/21 09/30/21 History release 24 hr morphine 15 mg immediate release 15 mg PO BID PRN 09/02/21 09/30/21 History tablet morphine 15 mg tablet,extended 15 mg PO TID 09/02/21 09/30/21 History release nitroglycerin 0.4 mg sublingual 0.4 mg SUBLINGUAL DIRECTED PRN 09/02/21 09/30/21 History tablet ondansetron 8 mg disintegrating 8 mg TRANSLINGUAL Q8 PRN 09/02/21 09/30/21 History tablet polyethylene glycol 3350 17 gram 17 g PO DAILY PRN 09/02/21 09/30/21 History oral powder packet (Miralax) promethazine 25 mg tablet 25 mg PO Q6 PRN 09/02/21 09/30/21 History nicotine 21 mg/24 hr daily 1 patch TRANSDERMAL DAILY #28 ea 09/04/21 09/30/21 Rx transdermal patch (Nicoderm CQ) clopidogrel 75 mg tablet 75 mg PO DAILY@1500 09/28/21 09/30/21 History levothyroxine 125 mcg tablet See Rx Instructions .ROUTE .COMPLEX 09/28/21 09/30/21 History topiramate 100 mg tablet 100 mg PO HS 09/28/21 09/30/21 History Inpatient Medication List Enoxaparin Sodium (Enoxaparin Inj 40 Mg/0.4 Ml Syr) 40 mg SQ Q24H ANDREW Stop: 10/31/21 08:59 Last Admin: 10/01/21 11:21 Dose: 40 mg Documented by: [id number] Sodium Chloride (Nss 1000ml) 1,000 mls @ 75 mls/hr IV .[id number] [facility] Stop: 10/01/21 16:24 Last Admin: 10/01/21 05:43 Dose: 75 mls/hr Documented by: [id number] Insulin Aspart (Insulin Aspart Per Unit) 0 units SC ACHS ANDREW Stop: 10/31/21 07:29 Last Admin: 10/01/21 12:31 Dose: Not Given Documented by: [id number] Admin: 10/01/21 09:07 Dose: Not Given Documented by: [id number] Levothyroxine Sodium (Levothyroxine Sodium 125 Mcg Tablet) 250 mcg PO MoTuWeThFrSa@0630 [facility] Stop: 10/31/21 06:29 Last Admin: 10/01/21 05:47 Dose: 250 mcg Documented by: [id number] Miscellaneous (Remove Nicoderm Patch) 1 ea N/A DAILY@0859 [facility] Stop: 10/31/21 08:58 Last Admin: 10/01/21 12:22 Dose: 1 ea Documented by: [id number] Morphine Sulfate (Morphine Sulfate Ir 15 Mg Tab (Immediate Release)) 15 mg PO BID PRN PRN Reason: Breakthrough Pain Stop: 10/15/21 03:04 Last Admin: 10/01/21 05:55 Dose: 15 mg Documented by: [id number] Morphine Sulfate (Morphine Sulfate Cr 15 Mg Tabcr) 15 mg PO TID [facility] Stop: 10/15/21 08:59 Last Admin: 10/01/21 09:16 Dose: 15 mg Documented by: [id number] Discontinued Medications Hydromorphone HCl (Hydromorphone Inj 0.5 Mg/0.5 Ml Syr) 0.5 mg IV NOW STA Stop: 10/01/21 00:36 Last Admin: 10/01/21 02:26 Dose: 0.5 mg Documented by: [id number] Sodium Chloride (Nss 1000ml) 1,000 mls @ 999 mls/hr IV .Q1H1M ONE Stop: 09/30/21 23:06 Last Infusion: 10/01/21 02:26 Dose: 0 mls/hr Documented by: [id number] Admin: 09/30/21 22:37 Dose: 999 mls/hr Documented by: [id number] Acetaminophen (Ofirmev) 1,000 mg in 100 mls @ 400 mls/hr IV NOW STA Stop: 09/30/21 22:20 Last Infusion: 09/30/21 23:15 Dose: 0 mls/hr Documented by: [id number] Admin: 09/30/21 22:36 Dose: 400 mls/hr Documented by: [id number] Famotidine (Pepcid 20mg Iv Push) 20 mg in 5 mls @ 2.5 mls/min IV NOW STA Stop: 09/30/21 22:08 Last Admin: 09/30/21 22:37 Dose: 2.5 mls/min Documented by: [id number] Potassium Phosphate 6 mmol/ (Sodium Chloride) 102 mls @ 88 mls/hr IV 2330 ONE Stop: 10/01/21 00:39 Last Infusion: 10/01/21 02:36 Dose: 0 mls/hr Documented by: [id number] Admin: 10/01/21 01:07 Dose: 88 mls/hr Documented by: [id number] Haloperidol Lactate 5 mg/ (Sodium Chloride) 501 mls @ 999 mls/hr IV 2345 ONE Stop: 10/01/21 00:15 Last Infusion: 10/01/21 01:07 Dose: 0 mls/hr Documented by: [id number] Admin: 10/01/21 00:09 Dose: 999 mls/hr Documented by: [id number] Valproic Acid 500 mg/ Dextrose 55 mls @ 55 mls/hr IV NOW STA Stop: 10/01/21 11:38 Last Infusion: 10/01/21 12:28 Dose: 0 mls/hr Documented by: [id number] Admin: 10/01/21 11:21 Dose: 55 mls/hr Documented by: [id number] Ketorolac Tromethamine (Ketorolac Tromethamine 15 Mg/Ml Vial) 15 mg IV NOW STA Stop: 09/30/21 22:07 Last Admin: 09/30/21 22:36 Dose: 15 mg Documented by: [id number] Lorazepam (Lorazepam 2 Mg/1 Ml Vial) 0.25 mg IV NOW STA Stop: 10/01/21 08:56 Last Admin: 10/01/21 12:22 Dose: 0.25 mg Documented by: [id number] Ondansetron HCl (Ondansetron Inj 2 Mg/Ml 2 Ml Vial) 4 mg IV NOW STA Stop: 09/30/21 22:08 Last Admin: 09/30/21 22:37 Dose: 4 mg Documented by: [id number] Potassium Phosphate (Potassium Phos 3 Mmol/1 Ml Infusion) 6 mmol IV NOW STA Stop: 09/30/21 23:05 Last Admin: 10/01/21 01:06 Dose: Not Given Documented by: [id number] Description This is a 21 electrode EEG with a single channel dedicated to limited EKG. The electrodes were placed in accordance with the International 10-20 system. REPORT: At the onset of the EEG, the patient is awake. The background activity consist of 9 Hz, persistent, posteriorly dominant, moderate amplitude, symmetric and rhythmic activity that is reactive to eye opening. Anteriorly, it consist of a mixture of low voltage indeterminate activity and 15-25 Hz, persistent, low amplitude, symmetric and rhythmic activity. Stepwise intermittent photic stimulation (1-21 Hz) does not induce any abnormalities. No stage 2 sleep transients are recorded. Interpretation IMPRESSION: This is a normal awake and drowsy EEG. There is no evidence of focal slowing or epileptiform activity.
--- NOTE | 2021-10-01 13:24 | Electrocardiogram Report ---
Test Reason : Blood Pressure : / mmHG Vent. Rate : 057 BPM Atrial Rate : 057 BPM P-R Int : 178 ms QRS Dur : 076 ms QT Int : 404 ms P-R-T Axes : 046 -17 031 degrees QTc Int : 393 ms Sinus bradycardia Low voltage QRS Borderline ECG When compared with ECG of 28-SEP-2021 12:28, Nonspecific T wave abnormality now evident in Anterior leads Confirmed by Juan Krause ([id number]) on 10/01/2021 1:24:23 PM Referred By: REFERRED SELF Confirmed By:Juan Krause
[2021-10-01] MEDS ORDERED: GADOBUTROL 65ML VIAL IV ONE (13:45)
--- NOTE | 2021-10-01 14:02 | Magnetic Resonance Report ---
MRI OF THE BRAIN WITHOUT AND WITH IV CONTRAST CLINICAL HISTORY: left hemiparesis with headache COMPARISON STUDY: MRI of the brain September 03, 2021. Head CT and CTA of the head September 28, 2021. Head C T September 30, 2021. TECHNIQUE: Utilizing a 1.5 Yaa magnet and dedicated coil, multiplanar, multiecho imaging of the br ain was performed pre and postcontrast administration. IV administration of 11.7 mL of Gadavist cont rast was uneventful. FINDINGS: There are no foci of restricted diffusion to suggest acute infarct. No acute intracranial h emorrhage, midline shift or mass effect is present. Brain volume is normal. Ventricular system is nor mal. Basal cisterns are patent. Flow-voids for the major intracranial vessels are present. There is n o intracranial mass or pathologic enhancement. No significant parenchymal signal abnormality is ident ified. Appearance of the brain is similar to MRI of September 03, 2021. Calvarial signal is normal. No julita dence for sinusitis. There is no mastoid fluid. Orbits are unremarkable. IMPRESSION: Unremarkable MRI of the brain. No acute intracranial findings. ACT 112: Negative or not required by law. Electronically signed by: Yonas Carson M.D. 10/01/2021 2:01 PM
[2021-10-01] MEDS: NICOTINE 21 MG/24 HR TDSY TD SCH (14:16)
[2021-10-01] MEDS ORDERED: CLOPIDOGREL BISULFATE 75 MG TAB PO SCH (15:00)
[2021-10-01] MEDS ORDERED: DULoxetine HCL 60 MG CAP PO SCH (15:00)
[2021-10-01] MEDS ORDERED: DULoxetine HCL 30 MG CAP PO SCH (15:00)
--- NOTE | 2021-10-01 15:54 | Communication Note ---
Date of Service: October 01, 2021 The patient was seen and examined today. She was admitted with neuro symptoms likely secondary to complicated migraine Remains hemodynamically stable and awaiting further testing. Is being seen by the neurologist Will have complete progress note tomorrow Dr Nikos Figueredo
[2021-10-01] MEDS ORDERED: TOPIRAMATE 100 MG TAB PO SCH (21:00)
[2021-10-01] MEDS ORDERED: PROCHLORPERAZINE 5 MG in SYRINGE 4 ML IV ONE (22:00)
[2021-10-02] MEDS: LEVOTHYROXINE SODIUM 125 MCG TABLET PO SCH (06:09)
[2021-10-02] MEDS: NICOTINE 21 MG/24 HR TDSY TD SCH (08:10)
[2021-10-02] MEDS: MoRPHine SULFATE CR 15 MG TABCR PO SCH (08:10)
[2021-10-02] MEDS: ENOXAPARIN INJ 40 MG/0.4 ML SYR SQ SCH (09:03)
[2021-10-02] MEDS: INSULIN ASPART PER UNIT SC SCH ×2 (09:04→12:34)
[2021-10-02 09:29] LABS: Basophils # (auto) 0.03 K/uL (0-0.2); Basophils % (auto) 0.4 %; Eosinophils # (auto) 0.14 K/uL (0-0.5); Hematocrit (blood only) 44.2 % (37-47); Hemoglobin 14.3 g/dL (12.0-16.0); Immature Granulocytes # (auto) 0.01 K/uL (0.00-0.02); Immature Granulocytes % (auto) 0.1 %; Lymphocytes # (auto) 2.08 K/uL (1.2-3.4); Lymphocytes % (auto) 29.5 %; Mean Corpuscular Hgb Conc 32.4 g/dL (32-36); Mean Corpuscular Volume 92.7 fL (80-100); Mean Platelet Volume 10.3 fL (7.4-10.4); Monocytes # (auto) 0.44 K/uL (0.11-0.59); Monocytes % (auto) 6.3 %; Neutrophils # (auto) 4.34 K/uL (1.4-6.5); Neutrophils % (auto) 61.7 %; Platelet Count 230 K/uL (130-400); RDW Coefficient of Variation 14.2 % (11.5-14.5); RDW Standard Deviation 47.9 fL (36.4-46.3); Red Blood Count 4.77 M/uL (4.2-5.4); White Blood Count 7.04 K/uL (4.8-10.8)
[2021-10-02 10:07] LABS: BUN Creatinine Ratio 16.2 (10-20); Calcium 9.2 mg/dl (8.5-10.1); Est GFR (African American) 71.7 ml/min; Est GFR (Non-African American) 61.9 ml/min; Potassium 3.8 mmol/L (3.5-5.1)
--- NOTE | 2021-10-02 11:55 | Hospitalist Progress Note ---
Date of Service October 02, 2021 Assessment & Plan (1) Stroke-like symptom: Plan: Presented with left-sided numbness associated with ongoing headache Work-up including CT of the head, CTA of head and neck and MRI of the brain have been negative for any stroke Symptomatically better Appreciate general neurology input and recommendation Has been ambulating in the room without any difficulties Has been on Plavix Will be discharged home this afternoon Will need to follow-up with neurology in 4 to 6 weeks (2) Chronic migraine: Plan: Presented with acute headache with history of chronic migraine Received intravenous Depakote 500 mg x 1 Increase the dose of Topamax to 125 mg in p.m. Clinically much better (3) Chronic pain syndrome: Plan: Denies any acute pain at this time Will avoid any additional narcotics Gabapentin with Tylenol will be tried to control the pain (4) Anxiety: Plan: We will continue current medications (5) Hypothyroidism: Plan: Continue supplement (6) Fibromyalgia: Plan: Will be discharged home this afternoon Admission and Anticipated Discharge Date Admission Date: October 01, 2021 Subjective 10/02/2021 The patient was seen and examined in medical telemetry unit She has been feeling much better and does not have any more headaches Her neuro symptoms are improved Review of Systems Review of Systems: All systems reviewed and are unremarkable except as noted below Neurologic: No significant numbness and or tingling in the extremities Physical Exam Physical Exam: Lying in bed comfortably Constitutional: well developed, well nourished and + obese; not ill appearing Eyes: PERRL, conjunctivae normal, anicteric sclerae ENMT: external ear and nose normal, oropharynx normal Neck: trachea midline, no thyromegaly Respiratory: no respiratory distress Auscultation: lungs clear to auscultation bilaterally Cardiovascular: Rate/Rhythm: regular rate and regular rhythm; not tachycardic Heart Sounds: normal S1 and normal S2; no murmur Extremities: + edema (Trace edema bilaterally) Gastrointestinal (Abdomen): Inspection/Auscultation: normal bowel sounds; abdomen not distended Percussion/Palpation: abdomen soft; abdomen nontender Musculoskeletal: No acute arthritis in any joint Neurologic: Alert, awake and oriented x3. No focal sensory and motor deficit appreciated Lymphatic: no cervical or axillary lymphadenopathy Results & Data Results & Data ([facility]) Vital Signs (Past 12 Hours) Vital Signs Temp Pulse Pulse Resp BP Pulse Ox Pulse Ox 10/02/21 10:44 36.6 C 59 L 18 146/93 H 96 10/02/21 09:58 52 L 10/02/21 08:11 36.8 C 56 L 18 125/81 96 10/02/21 04:00 36.8 C 59 L 18 127/83 94 10/02/21 03:05 94 Laboratory Results Short CBC 10/02/21 Range/Units 09:14 WBC 7.04 (4.8-10.8) K/uL Hgb 14.3 (12.0-16.0) g/dL Hct 44.2 (37-47) % Plt Count 230 (130-400) K/uL BMP 10/02/21 09:14 Sodium 138 Potassium 3.8 Chloride 109 H Carbon Dioxide 26 BUN 17 Creatinine 1.05 Glucose 117 H Calcium 9.2 Medications Administered Current Inpatient Medications Acetaminophen (Acetaminophen 325 Mg Tab) 650 mg PO Q4H PRN PRN Reason: Pain or Fever Stop: 10/31/21 03:04 Last Admin: 10/01/21 20:15 Dose: 650 mg Documented by: Clopidogrel Bisulfate (Clopidogrel Bisulfate 75 Mg Tab) 75 mg PO DAILY@1500 [facility], [facility]1983 Stop: 10/31/21 14:59 Last Admin: 10/01/21 15:56 Dose: 75 mg Documented by: Dextrose (Dextrose 50% 50 Ml Syringe) 25 - 50 ml IV UD PRN; Protocol PRN Reason: Hypoglycemia Protocol Stop: 10/31/21 03:29 Duloxetine HCl (Duloxetine Hcl 30 Mg Cap) 30 mg PO DAILY@1500 [facility], [facility]1983 Stop: 10/31/21 14:59 Last Admin: 10/01/21 15:56 Dose: 30 mg Documented by: Duloxetine HCl (Duloxetine Hcl 60 Mg Cap) 60 mg PO DAILY@1500 [facility], [facility]1983 Stop: 10/31/21 14:59 Last Admin: 10/01/21 15:56 Dose: 60 mg Documented by: Enoxaparin Sodium (Enoxaparin Inj 40 Mg/0.4 Ml Syr) 40 mg SQ Q24H ANDREW Stop: 10/31/21 08:59 Last Admin: 10/02/21 09:03 Dose: 40 mg Documented by: Furosemide (Furosemide 40 Mg Tab) 40 mg PO DAILY PRN PRN Reason: Edema Stop: 10/31/21 03:04 Glucagon (Glucagon For Inj 1 Mg Vial) 1 mg IM UD PRN; Protocol PRN Reason: Hypoglycemia Protocol Stop: 10/31/21 03:29 Glucose (Glucose 40% Gel 15 Gm Tube) 15 - 30 gm PO UD PRN; Protocol PRN Reason: Hypoglycemia Protocol Stop: 10/31/21 03:29 Glucose (Glucose 10 Tabs/Tube) 4 - 8 tabs PO UD PRN; Protocol PRN Reason: Hypoglycemia Protocol Stop: 10/31/21 03:29 Insulin Aspart (Insulin Aspart Per Unit) 0 units SC ACHS [facility], [facility] Stop: 10/31/21 07:29 Last Admin: 10/02/21 09:04 Dose: Not Given Documented by: Levothyroxine Sodium (Levothyroxine Sodium 125 Mcg Tablet) 375 mcg PO Melo@0630 [facility], [facility] Stop: 11/02/21 06:29 Levothyroxine Sodium (Levothyroxine Sodium 125 Mcg Tablet) 250 mcg PO MoTu WeThFrSa@0630 [facility], [facility] Stop: 10/31/21 06:29 Last Admin: 10/02/21 06:09 Dose: 250 mcg Documented by: Miscellaneous (Remove Nicoderm Patch) 1 ea N/A DAILY@0859 [facility]1983 Stop: 10/31/21 08:58 Last Admin: 10/02/21 08:10 Dose: 1 ea Documented by: Miscellaneous (Carbohydrates For Hypoglycemia ) 15 - 30 gm PO UD PRN PRN Reason: Hypoglycemia Treatment Stop: 10/31/21 03:29 Morphine Sulfate (Morphine Sulfate Ir 15 Mg Tab (Immediate Release)) 15 mg PO BID PRN PRN Reason: Breakthrough Pain Stop: 10/15/21 03:04 Last Admin: 10/01/21 05:55 Dose: 15 mg Documented by: Morphine Sulfate (Morphine Sulfate Cr 15 Mg Tabcr) 15 mg PO TID [facility]1983 Stop: 10/15/21 08:59 Last Admin: 10/02/21 08:10 Dose: 15 mg Documented by: Nicotine (Nicotine 21 Mg/24 Hr Tdsy) 21 mg TD DAILY [facility], [facility]1983 Stop: 10/31/21 08:59 Last Admin: 10/02/21 08:10 Dose: 21 mg Documented by: Nitroglycerin (Nitroglycerin Sl 0.4 Mg/Tab Tab) 0.4 mg SL UD PRN PRN Reason: Chest Pain Stop: 10/31/21 03:04 Ondansetron HCl (Ondansetron Inj 2 Mg/Ml 2 Ml Vial) 4 mg IV Q6H PRN PRN Reason: Nausea Stop: 10/31/21 03:04 Last Admin: 10/01/21 18:22 Dose: 4 mg Documented by: Polyethylene Glycol (Polyethylene (Miralax) 17 Gm Pack) 17 gm PO DAILY PRN PRN Reason: Constipation Stop: 10/31/21 03:04 Promethazine HCl (Promethazine Hcl 25 Mg Tab) 25 mg PO Q6 PRN PRN Reason: Nausea Stop: 10/31/21 03:04 Last Admin: 10/01/21 20:48 Dose: 25 mg Documented by: Topiramate (Topiramate 100 Mg Tab) 100 mg PO HS ANDREW Stop: 10/31/21 20:59 Last Admin: 10/01/21 20:00 Dose: 100 mg Documented by:
--- NOTE | 2021-10-02 12:14 | Progress Notes ---
SUBJECTIVE: I have seen the patient via iPad through telemedicine. The patient was in the hospital, I was at my home. The patient indicates that her headache is better as is her weakness. OBJECTIVE: On exam, she is awake and alert. Speech and language are normal. Affect is appropriate. There is a drift on the left without pronation. IMPRESSION AND PLAN: Ongoing complicated migraine headaches. The patient improved. Recommend discharging the patient on Topamax 125 mg. As an outpatient, she should try either Nurtec on a p.r.n. basis or lasmitidan. I would not permit her to continue to use triptans such as Maxalt due to the complicated nature of her headaches. She should have a followup arranged with someone in my office within the next four or so weeks. I have no objections to the patient's discharge and the patient feels well enough to be discharged. Job ID: [id number] TIFFANI
[2021-10-03] MEDS ORDERED: LEVOTHYROXINE SODIUM 125 MCG TABLET PO SCH (06:30)
--- NOTE | 2021-10-03 07:51 | Discharge Summary ---
Date of Service October 03, 2021 Admission HPI Per Admitting Provider DICTATED BY:Edward Mahoney MD DATE OF ADMISSION: 10/01/2021. CHIEF COMPLAINT: Headache, left-sided numbness. HISTORY OF PRESENT ILLNESS: This is a 51-year-old female with past medical his tory significant for hypothyroidism with acquired atrophy of thyroid, history of hyperparathyroidism, type 2 diabetes, irritable bowel syndrome, fibromyalgia, bulging lumbar disk, migraine, chronic pain syndrome, opioid dependence, ongoing tobacco use disorder, generalized anxiety disorder, history of depression, who was recently brought in to the hospital for stroke-like symptoms. At that time, she had complained of left-sided weakness and unresponsiveness and all the workup was negative and symptoms were thought to be complicated migraine with left-sided weakness and paresthesias and she was discharged on Topamax. She was also started on Plavix.She was again in the ER on 09/28/2021 with severe headache with some heaviness of left arm and left leg. Again, CTA of the head and neck and CT of head were done, which were unremarkable and she felt better and she was discharged. Had a followup appointment with the PCP yesterday and also at that time she complained of similar symptoms and as symptoms were not getting better, she came to the ER today. She complains of severe headache in the left side of the head and also some numbness in the left side of the face and some blurred vision in the left eye, some numbness and weakness in the left extremities. Resting comfortably and hemodynamically stable. Has some nausea. No runny nose, no sore throat, no cough, no difficulty swallowing. Appetite is okay. No chest pain, no shortness of breath, no abdominal pain. Normal bowel and bladder movements. No swelling in the legs. Admission Exam Per Admitting Provider GENERAL: The patient is obese, not in acute distress. VITAL SIGNS: Temperature 36.3, pulse 64, respiratory rate 18, blood pressure 125/70, oxygen 98% on room air. HEENT: The patient has some photophobia, atraumatic. Oral mucosa moist. NECK: No JVD. No neck masses. CARDIOVASCULAR: S1 and S2 heard. Regular rate and rhythm. No murmur, no gallop. RESPIRATORY SYSTEM: Normal AP diameter. No accessory muscle use. No wheezing, no crackles. ABDOMEN: Soft, bowel sounds present, nontender, no distention. CENTRAL NERVOUS SYSTEM: Cranial nerves II-XII grossly intact. Power 5/5 in right extremities, 4/5 in left extremities. Sensation is intact. co ordination of movements normal. EXTREMITIES: No edema, no erythema. Principal Diagnosis Strokelike symptoms, chronic migraine, chronic pain syndrome, fibromyalgia Discharge Exam Lying in bed comfortably Constitutional well developed, well nourished and + obese; not ill appearing Eyes PERRL, conjunctivae normal, anicteric sclerae ENMT external ear and nose normal, oropharynx normal Neck trachea midline, no thyromegaly Respiratory no respiratory distress Auscultation: lungs clear to auscultation bilaterally Cardiovascular Rate/Rhythm: regular rate and regular rhythm; not tachycardic Heart Sounds: normal S1 and normal S2; no murmur Extremities: + edema (Trace edema bilaterally) Gastrointestinal (Abdomen) Inspection/Auscultation: normal bowel sounds; abdomen not distended Percussion/Palpation: abdomen soft; abdomen nontender Lymphatic no cervical or axillary lymphadenopathy Discharge Data Allergies Allergy/AdvReac Type Severity Reaction Status Date / Time gabapentin Allergy Severe anaphylaxis Verified 09/30/21 21:35 tramadol Allergy Severe ANAPHYLAXIS Verified 09/30/21 21:35 chlorpheniramine Allergy Intermediate SHORTNESS Verified 09/30/21 21:35 OF BREATH guaifenesin Allergy Intermediate SHORTNESS Verified 09/30/21 21:35 OF BREATH Sulfa (Sulfonamide Allergy Unknown Unknown Verified 09/30/21 21:35 Antibiotics) aspirin AdvReac Intermediate TINNITUS Verified 09/30/21 21:35 Corticosteroids AdvReac Intermediate Agitated Verified 09/30/21 21:35 (Glucocorticoids) metoclopramide AdvReac Intermediate anxiety Verified 09/30/21 21:35 SYMPATHOMIMETICS Allergy Unknown Unknown Uncoded 09/30/21 21:35 Consultations 09/30/21 23:19 ED Decision to Admit Stat 10/01/21 08:00 Consult Neurology Routine Ordered Studies 09/30/21 22:06 CT head/brain wo con Urgent 10/01/21 08:09 MR brain wo/w con Routine Hospital Course (1) Stroke-like symptom: Presented with left-sided numbness associated with ongoing headache Work-up including CT of the head, CTA of head and neck and MRI of the brain have been negative for any stroke Symptomatically better Appreciate general neurology input and recommendation Has been ambulating in the room without any difficulties Has been on Plavix Will be discharged home this afternoon Will need to follow-up with neurology in 4 to 6 weeks (2) Chronic migraine: Presented with acute headache with history of chronic migraine Received intravenous Depakote 500 mg x 1 Increase the dose of Topamax to 125 mg in p.m. Clinically much better (3) Chronic pain syndrome: Denies any acute pain at this time Will avoid any additional narcotics Gabapentin with Tylenol will be tried to control the pain (4) Anxiety: We will continue current medications (5) Hypothyroidism: Continue supplement (6) Fibromyalgia: Will be discharged home this afternoon Total Time Total Time Spent Total Time Spent (In Minutes): 35 minutes Discharge Plan Discharge Items Patient Disposition: Home - Self-Care Reason For Visit: HEADACHE Discharge Diagnosis: Strokelike symptoms, chronic migraine, chronic pain syndrome, fibromyalgia Activity: Resume your previous activity Non-emergency contact: Primary Care Provider Call non-emergency contact if: you have any medication questions and your symptoms worsen Follow-up/Referrals: Dajuan Bell, [Primary Care Provider] - (Your doctor's office will call you with an appointment within 7 days) Diet: Carb Consistent or DM2 Addtl Attending Provider Instructions: Please Take precautions to avoid fall Please take your medications as advised Your doctor's office will call with appointments with your primary care doctor and also neurologist Your Topamax has been increased to 125 mg at night and Lipitor 40 mg has been added to improve your cholesterol. Pending Studies at Discharge: No Stand-Alone Forms: My [facility] Proton Therapy, Smoking Cessation Medications and DC Order Prescriptions: New topiramate [Topamax] 25 mg tablet 25 mg PO HS Qty: 30 RF: 0 atorvastatin [Lipitor] 40 mg tablet 40 mg PO DAILY Qty: 30 RF: 0 Continued morphine 15 mg tablet extended release 15 mg PO TID RF: 0 morphine 15 mg tablet 15 mg PO BID PRN (Reason: Breakthrough Pain) RF: 0 duloxetine 30 mg capsule,delayed release(DR/EC) 30 mg PO DAILY@1500 RF: 0 duloxetine 60 mg capsule,delayed release(DR/EC) 60 mg PO DAILY@1500 RF: 0 metformin 500 mg tablet extended release 24 hr 500 mg PO QAM RF: 0 ondansetron 8 mg tablet,disintegrating 8 mg translingual Q8 PRN (Reason: NAUSEA/VOMITING) RF: 0 promethazine 25 mg tablet 25 mg PO Q6 PRN (Reason: Nausea) RF: 0 furosemide [Lasix] 40 mg Tablet 40 mg PO DAILY PRN (Reason: Edema) RF: 0 polyethylene glycol 3350 [Miralax] 17 gram Powder In Packet 17 g PO DAILY PRN (Reason: Constipation) RF: 0 nitroglycerin 0.4 mg tablet, sublingual 0.4 mg sublingual DIRECTED PRN (Reason: Chest Pain) RF: 0 nicotine [Nicoderm CQ] 21 mg/24 hr patch 24 hour 1 patch transdermal DAILY Qty: 28 RF: 0 levothyroxine 125 mcg tablet See Rx Instructions .ROUTE .COMPLEX RF: 0 topiramate 100 mg tablet 100 mg PO HS RF: 0 clopidogrel 75 mg tablet 75 mg PO DAILY@1500 RF: 0 Discharge Orders: Discharge Order (Routine); Ordered 10/02/21 Ordered By: Roz Figueredo Admission Data Admit Date/Time: 10/01/21 00:35 Attending Provider: Roz Figueredo Admit Provider: Edward Mahoney Primary Care Provider: Dajuan Bell Other Providers: Edward Mahoney ; Myah Villa ; Gerry Arriola ; Myah Saini ; Lewis Krueger ; Yousif Payne Other Interventions: Discharge Summary Assessment (RN) Last Done: 10/02/21 12:19
== END 2021-10-02 13:10 | disposition home or self-care (01) ==
LOC: ED 18:51 → 2N 10-01 00:35 → SUATTDRO 10-01 00:35 → INTOOBSV 10-01 00:35 → 2N 10-01 02:36

== ENCOUNTER 2021-10-26 14:47 | Observation (INO) ==
[2021-10-26 15:41] LABS: Basophils # (auto) 0.02 K/uL (0-0.2); Basophils % (auto) 0.2 %; Eosinophils # (auto) 0.03 K/uL (0-0.5); Eosinophils % (auto) 0.3 %; Hematocrit (blood only) 46.4 % (37-47); Hemoglobin 15.7 g/dL (12.0-16.0); Immature Granulocytes # (auto) 0.04 K/uL (0.00-0.02); Immature Granulocytes % (auto) 0.3 %; Lymphocytes # (auto) 2.37 K/uL (1.2-3.4); Lymphocytes % (auto) 20.5 %; Mean Corpuscular Hemoglobin 30.2 pg (25-34); Mean Corpuscular Hgb Conc 33.8 g/dL (32-36); Mean Corpuscular Volume 89.2 fL (80-100); Mean Platelet Volume 10.8 fL (7.4-10.4); Monocytes # (auto) 0.47 K/uL (0.11-0.59); Monocytes % (auto) 4.1 %; Neutrophils # (auto) 8.65 K/uL (1.4-6.5); Neutrophils % (auto) 74.6 %; Platelet Count 292 K/uL (130-400); RDW Coefficient of Variation 14.6 % (11.5-14.5); RDW Standard Deviation 47.4 fL (36.4-46.3); White Blood Count 11.58 K/uL (4.8-10.8)
[2021-10-26] MEDS ORDERED: SODIUM CHLORIDE 0.9% 1000ML 1,000 ML IV ONE (15:51)
[2021-10-26] MEDS ORDERED: PROMETHAZINE 12.5 MG/50.5 ML BAG IV STA (15:51)
[2021-10-26] MEDS ORDERED: MoRPHine SULFATE 10 MG/ML CARP/VIAL IV STA (15:51)
--- NOTE | 2021-10-26 15:58 | Emergency Department Note ---
Impression & Plan Syncope, Vomiting, Hypothyroid, Bradycardia, Lower back pain ED Provider Note NAME: ALLAN FLORENCE AGE: 51 SEX: F : 1970 ARRIVES VIA: Ambulance INFORMANT: [Patient][nursing] ED PROVIDER(S): [Elvin Eldridge MD] CHIEF COMPLAINT: Syncope, vomiting HISTORY OF PRESENT ILLNESS: The patient is a 51-year-old female who has not felt well for about a week. She has had lightheadedness, some near syncopal events, vomiting. She was at her doctor's office today and she passed out twice. With one of the syncopal spells, she fell off her chair and aggravated her lower back. She has chronic ongoing low back issues. The patient was given oral Zofran and then IV Zofran, she still feels nauseated and did vomit when she arrived here in the ED. The patient denies any chest pain or shortness of breath. No fever. She has had some diarrhea, it has been normal brown in color, not black or bloody. The patient states that her thyroid is underactive. She felt this way before when her thyroid was an issue. Her doctors office believes her thyroid is again the problem for her symptoms. The patient complains of nausea right now and some moderate lower back pain. S he did miss her typical dose of morphine. She takes morphine chronically for lower back pain. She missed the dose because she was at her doctor's office. REVIEW OF SYSTEMS: See HPI for pertinent positives and negatives. A total of ten systems were reviewed and were otherwise negative. PMHx/PSHx: See Below SOCIAL HISTORY: See Below. PHYSICAL EXAM: GENERAL: Patient is in no acute distress. There is a vomit bag on her stretcher which contains recent vomit. HEENT: No acute trauma, normocephalic atraumatic, mucous membranes moist, no nasal congestion, no scleral icterus. NECK: No stridor, no adenopathy, no meningismus, trachea is midline. LUNGS: Clear to auscultation bilaterally, no wheeze, no rhonchi, breath sounds equal. HEART: Without murmurs gallops or rubs, regular rate and rhythm. ABDOMEN: Soft, nontender, bowel sounds positive, no hernias, no peritonitis. EXTREMITIES: No cyanosis or edema, full range of motion of all the joints without pain or difficulty, no signs for acute trauma. NEUROLOGIC: Oriented x 3, no acute motor or sensory deficits, no focal weakness. SKIN: No rash, no jaundice, no diaphoresis. Back: She has tenderness to the lower midline lumbar back, no abrasions or contusions felt, no step-offs. DIFFERENTIAL DIAGNOSIS: Infection, dehydration, UTI, thyroid disorder, dysrhythmia, metabolic abnormality, hypo/hyperglycemia, electrolyte disturbance, anemia, hypoxia, cardiac sources, intracerebral event, toxicologic issues, stroke, TIA, as well as other pathologies. EMERGENCY DEPARTMENT COURSE/PROCEDURES: ECG: Indication was syncope. The ECG shows a normal sinus rhythm with a rate of 61. There is no ST elevation, no PVCs. The QTc is 390. Repeat ECG: Indication was bradycardia. The ECG showed a sinus bradycardia with a rate of 43. There is no ST elevation, no PVCs. The QTc was 376. Compared to an ECG from earlier, the rate has decreased. Continuous Cardiac Monitoring: An order was placed for continuous cardiac monitoring. The monitor shows a rate of 76 with normal sinus rhythm. MEDICAL DECISION MAKING: There is a very mild leukocytosis, this could be consistent with infection or just from her stress today. There is a normal hemoglobin and platelet count. Potassium was somewhat low at 3.3. No renal failure. Alk phos slightly elevated, the remaining liver enzymes were unremarkable. ECG shows a normal sinus rhythm, no obvious ischemia. Repeat EKG showed a sinus bradycardia with a rate of 43. Cardiac enzyme testing x1 is not consistent with acute cardiac injury. TSH is elevated, T4 and T3 are normal. Urinalysis does not show evidence for infection. COVID test returned negative. Lumbar spine series does not show fracture or bony dislocation. The patient presented with some syncope, thyroid issues and vomiting. Work-up does show bradycardia, a lower potassium and hypothyroidism. I did speak with cardiology. Monitoring would be warranted given the bradycardia, hypothyroidism and syncope. I spoke with the patient and case management, the on-call hospitalist was consulted. I suspect the reason for her syncope is multifactorial. Of note, it appears the patient has aggravated her lower back issue with her syncopal spell. The pain is musculoskeletal. Past Med/Surg History Medical History Acute exacerbation of chronic low back pain Anxiety Atelectasis Back pain Bulging lumbar disc Small broad-based posterior disc bulge with a small right paracentral focal disc protrusion Cardiomyopathy 2014 - thought to be stress induced, reported normal dobutamine stress and echo after Chronic back pain Chronic pain syndrome Depression Fibromyalgia H/O traumatic brain injury Hypokalemia Hypothyroidism (Unknown) IBS (irritable bowel syndrome) Intractable back pain Intractable nausea and vomiting Migraines Opiate dependence Tobacco abuse Surgical History Bilateral tubal ligation (Unknown) section (Unknown) H/O colonoscopy "2006 path normal" H/O cystoscopy H/O esophagogastroduodenoscopy "2006 path normal" History of knee surgery Hx of appendectomy Hx of cholecystectomy Hx of hysterectomy S/P lymph node biopsy "deep cervical inflammatory node 2007" Family History Other Diabetes Hypertension Thyroid disorder Social History Smoking Status: Current every day smoker Tobacco Type: Cigarettes Cigarettes Per Day: 1 pack per day; Second Hand Exposure: Yes; Hx Alcohol Use: No Hx Substance Use: No Preferred Language: Marshallese Communication Ability: Effective Visual Impairment: Partially Limited Biology Intern Required: No Beliefs That Will Affect Care: None marital status: Current Living Situation: Spouse and Family Current Living Situation Comment: grandson Feels Safe at Home: Yes Assistive Devices: Walker Allergies Allergies Allergy/AdvReac Type Severity Reaction Status Date / Time gabapentin Allergy Severe anaphylaxis Verified 10/26/21 19:36 tramadol Allergy Severe ANAPHYLAXIS Verified 10/26/21 19:36 chlorpheniramine Allergy Intermediate SHORTNESS Verified 10/26/21 19:36 OF BREATH guaifenesin Allergy Intermediate SHORTNESS Verified 10/26/21 19:36 OF BREATH Sulfa (Sulfonamide Allergy Unknown Unknown Verified 10/26/21 19:36 Antibiotics) aspirin AdvReac Intermediate TINNITUS Verified 10/26/21 19:36 Corticosteroids AdvReac Intermediate Agitated Verified 10/26/21 19:36 (Glucocorticoids) metoclopramide AdvReac Intermediate anxiety Verified 10/26/21 19:36 SYMPATHOMIMETICS Allergy Unknown Unknown Uncoded 10/26/21 19:36 Home Meds Home Medications Medication Instructions Recorded Confirmed duloxetine 30 mg capsule,delayed 30 mg PO DAILY@1500 09/02/21 10/26/21 release duloxetine 60 mg capsule,delayed 60 mg PO DAILY@1500 09/02/21 10/26/21 release furosemide 40 mg tablet (Lasix) 40 mg PO DAILY PRN 09/02/21 10/26/21 metformin 500 mg tablet,extended 500 mg PO QAM 09/02/21 10/26/21 release 24 hr morphine 15 mg immediate release 15 mg PO BID PRN 09/02/21 10/26/21 tablet morphine 15 mg tablet,extended 15 mg PO TID 09/02/21 10/26/21 release nitroglycerin 0.4 mg sublingual 0.4 mg SUBLINGUAL DIRECTED PRN 09/02/21 10/26/21 tablet ondansetron 8 mg disintegrating 8 mg TRANSLINGUAL Q8 PRN 09/02/21 10/26/21 tablet polyethylene glycol 3350 17 gram 17 g PO DAILY PRN 09/02/21 10/26/21 oral powder packet (Miralax) promethazine 25 mg tablet 25 mg PO Q6 PRN 09/02/21 10/26/21 clopidogrel 75 mg tablet 75 mg PO DAILY@1500 09/28/21 10/26/21 levothyroxine 125 mcg tablet See Rx Instructions .ROUTE .COMPLEX 09/28/21 10/26/21 topiramate 100 mg tablet 100 mg PO HS 09/28/21 10/26/21 Previous Rx's Medication Instructions Recorded nicotine 21 mg/24 hr daily 1 patch TRANSDERMAL DAILY #28 ea 09/04/21 transdermal patch (Nicoderm CQ) atorvastatin 40 mg tablet (Lipitor) 40 mg PO DAILY #30 tab 10/02/21 topiramate 25 mg tablet (Topamax) 25 mg PO HS #30 tab 10/02/21 Results & Data (ED) Vital Signs Vital Signs - 24 hr 10/26/21 14:57 10/26/21 15:27 10/26/21 16:30 Temperature 37 C Temperature Source Oral Pulse Rate - Lying 54 L Pulse Rate - Sitting 68 Pulse Rate - Standing 50 L Pulse Rate 90 Pulse Rate [Finger] 76 Pulse Rhythm Regular Pulse Rhythm [Finger] Regular Pulse Strength Normal Pulse Strength [Finger] Normal Respiratory Rate 22 20 Respiratory Effort / Characteristics Non-Labored SOB on Exertion Non-Labored Respiratory Depth Normal Normal Respiratory Pattern Regular Regular Blood Pressure - Lying 149/88 H Blood Pressure - Sitting 149/97 H Blood Pressure- Standing 149/99 H Blood Pressure 123/88 Blood Pressure [Right Arm] 125/88 Blood Pressure Mean 99 Blood Pressure Mean [Right Arm] 100 Blood Pressure Position Lying Blood Pressure Position [Right Arm] Lying Pulse Oximetry 99 96 Oxygen Delivery Method Room Air Room Air Sepsis Recent Fever Within 48 Hours No Sepsis New/Unexplained Change in Mental Status N/A Sepsis Action Taken by Nursing No Action Required 10/26/21 17:37 10/26/21 17:47 10/26/21 19:00 Temperature Temperature Source Pulse Rate - Lying Pulse Rate - Sitting Pulse Rate - Standing Pulse Rate Pulse Rate [Finger] 58 L 42 L 61 Pulse Rhythm Pulse Rhythm [Finger] Pulse Strength Pulse Strength [Finger] Respiratory Rate 20 20 18 Respiratory Effort / Characteristics Non-Labored Non-Labored Spontaneous Respiratory Depth Normal Normal Normal Respiratory Pattern Blood Pressure - Lying Blood Pressure - Sitting Blood Pressure- Standing Blood Pressure Blood Pressure [Right Arm] 124/60 126/64 133/84 Blood Pressure Mean Blood Pressure Mean [Right Arm] 81 84 100 Blood Pressure Position Blood Pressure Position [Right Arm] Pulse Oximetry 99 96 96 Oxygen Delivery Method Room Air Room Air Room Air Sepsis Recent Fever Within 48 Hours Sepsis New/Unexplained Change in Mental Status Sepsis Action Taken by Nursing 10/26/21 20:54 10/26/21 21:07 Temperature Temperature Source Pulse Rate - Lying Pulse Rate - Sitting Pulse Rate - Standing Pulse Rate 53 L Pulse Rate [Finger] 46 L Pulse Rhythm Pulse Rhythm [Finger] Pulse Strength Pulse Strength [Finger] Respiratory Rate 16 16 Respiratory Effort / Characteristics Non-Labored Spontaneous Respiratory Depth Normal Respiratory Pattern Blood Pressure - Lying Blood Pressure - Sitting Blood Pressure- Standing Blood Pressure 115/68 Blood Pressure [Right Arm] 109/62 Blood Pressure Mean Blood Pressure Mean [Right Arm] 77 Blood Pressure Position Blood Pressure Position [Right Arm] Pulse Oximetry 91 92 Oxygen Delivery Method Room Air Room Air Sepsis Recent Fever Within 48 Hours Sepsis New/Unexplained Change in Mental Status Sepsis Action Taken by [facility] Medications Current Medication List: was personally reviewed by me Laboratory Data Attestation: I reviewed the patient's lab results. Result diagrams: 10/26/21 15:20 10/26/21 15:20 Lab Results 10/26/21 10/26/21 10/26/21 Range/Units 15:20 15:20 15:20 WBC 11.58 H (4.8-10.8) K/uL RBC 5.20 (4.2-5.4) M/uL Hgb 15.7 (12.0-16.0) g/dL Hct 46.4 (37-47) % MCV 89.2 (80-100) fL MCH 30.2 (25-34) pg MCHC 33.8 (32-36) g/dL RDW Std Deviation 47.4 H (36.4-46.3) fL RDW Coeff of Roro 14.6 H (11.5-14.5) % Plt Count 292 (130-400) K/uL MPV 10.8 H (7.4-10.4) fL Immature Gran % (Auto) 0.3 % Neut % (Auto) 74.6 % Lymph % (Auto) 20.5 % [place] % (Auto) 4.1 % Eos % (Auto) 0.3 % Baso % (Auto) 0.2 % Neut # (Auto) 8.65 H (1.4-6.5) K/uL Lymph # (Auto) 2.37 (1.2-3.4) K/uL [place] # (Auto) 0.47 (0.11-0.59) K/uL Eos # (Auto) 0.03 (0-0.5) K/uL Baso # (Auto) 0.02 (0-0.2) K/uL Immature Gran # (Auto) 0.04 H (0.00-0.02) K/uL Sodium 141 (136-145) mmol/L Potassium 3.3 L (3.5-5.1) mmol/L Chloride 111 H (98-107) mmol/L Carbon Dioxide 21 (21-32) mmol/L Anion Gap 9 (3-11) BUN 9 (6-23) mg/dl Creatinine 0.94 (0.6-1.2) mg/dl Est Cr Clr Drug Dosing 98.0 ml/min Est GFR ( Amer) 82.0 ml/min Est GFR (Non-Af Amer) 70.7 ml/min BUN/Creatinine Ratio 9.6 L (10-20) Glucose 103 H (70-99(Fasting)) mg/dl Calcium 10.3 H (8.5-10.1) mg/dl Magnesium (1.7-2.4) mg/dl Total Bilirubin 0.7 (0.2-1.0) mg/dl AST 16 (13-39) U/L ALT 18 (7-52) U/L Alkaline Phosphatase 113 H (34-104) U/L Troponin I High Sens 5.0 (0-14) pg/ml Total Protein 8.1 (6.0-8.3) gm/dl Albumin 4.7 (3.4-5.0) gm/dl Globulin 3.4 (2.5-4.0) gm/dl Albumin/Globulin Ratio 1.4 (0.9-2) TSH (0.300-4.500) uIu/ml Free T4 (0.61-1.60) ng/dl Free T3 (2.3-4.2) pg/ml Urine Color Urine Appearance (Clear) Urine pH (4.5-7.5) Ur Specific [place] (1.000-1.030) Urine Protein (Negative) Urine Glucose (UA) (Negative) Urine Ketones (Negative) Urine Blood (Negative) Urine Nitrite (Negative) Urine Bilirubin (Negative) Urine Urobilinogen (Negative) Ur Leukocyte Esterase (Negative) Urine WBC (Auto) (0-5) /hpf Urine RBC (Auto) (0-4) /hpf U Hyaline Cast (Auto) (0-5) /lpf U Epithel Cells (Auto) (0-5) /lpf Urine Bacteria (Auto) (Negative) SARS-CoV-2, RNA, NAAT (NEGATIVE) 10/26/21 10/26/21 10/26/21 Range/Units 15:20 15:20 15:20 WBC (4.8-10.8) K/uL RBC (4.2-5.4) M/uL Hgb (12.0-16.0) g/dL Hct (37-47) % MCV (80-100) fL MCH (25-34) pg MCHC (32-36) g/dL RDW Std Deviation (36.4-46.3) fL RDW Coeff of Roro (11.5-14.5) % Plt Count (130-400) K/uL MPV (7.4-10.4) fL Immature Gran % (Auto) % Neut % (Auto) % Lymph % (Auto) % [place] % (Auto) % Eos % (Auto) % Baso % (Auto) % Neut # (Auto) (1.4-6.5) K/uL Lymph # (Auto) (1.2-3.4) K/uL [place] # (Auto) (0.11-0.59) K/uL Eos # (Auto) (0-0.5) K/uL Baso # (Auto) (0-0.2) K/uL Immature Gran # (Auto) (0.00-0.02) K/uL Sodium (136-145) mmol/L Potassium (3.5-5.1) mmol/L Chloride (98-107) mmol/L Carbon Dioxide (21-32) mmol/L Anion Gap (3-11) BUN (6-23) mg/dl Creatinine (0.6-1.2) mg/dl Est Cr Clr Drug Dosing ml/min Est GFR ( Amer) ml/min Est GFR (Non-Af Amer) ml/min BUN/Creatinine Ratio (10-20) Glucose (70-99(Fasting)) mg/dl Calcium (8.5-10.1) mg/dl Magnesium 2.2 (1.7-2.4) mg/dl Total Bilirubin (0.2-1.0) mg/dl AST (13-39) U/L ALT (7-52) U/L Alkaline Phosphatase (34-104) U/L Troponin I High Sens (0-14) pg/ml Total Protein (6.0-8.3) gm/dl Albumin (3.4-5.0) gm/dl Globulin (2.5-4.0) gm/dl Albumin/Globulin Ratio (0.9-2) TSH 14.257 H (0.300-4.500) uIu/ml Free T4 (0.61-1.60) ng/dl Free T3 3.10 (2.3-4.2) pg/ml Urine Color Urine Appearance (Clear) Urine pH (4.5-7.5) Ur Specific [place] (1.000-1.030) Urine Protein (Negative) Urine Glucose (UA) (Negative) Urine Ketones (Negative) Urine Blood (Negative) Urine Nitrite (Negative) Urine Bilirubin (Negative) Urine Urobilinogen (Negative) Ur Leukocyte Esterase (Negative) Urine WBC (Auto) (0-5) /hpf Urine RBC (Auto) (0-4) /hpf U Hyaline Cast (Auto) (0-5) /lpf U Epithel Cells (Auto) (0-5) /lpf Urine Bacteria (Auto) (Negative) SARS-CoV-2, RNA, NAAT (NEGATIVE) 10/26/21 10/26/21 10/26/21 Range/Units 15:20 15:30 19:30 WBC (4.8-10.8) K/uL RBC (4.2-5.4) M/uL Hgb (12.0-16.0) g/dL Hct (37-47) % MCV (80-100) fL MCH (25-34) pg MCHC (32-36) g/dL RDW Std Deviation (36.4-46.3) fL RDW Coeff of Roro (11.5-14.5) % Plt Count (130-400) K/uL MPV (7.4-10.4) fL Immature Gran % (Auto) % Neut % (Auto) % Lymph % (Auto) % [place] % (Auto) % Eos % (Auto) % Baso % (Auto) % Neut # (Auto) (1.4-6.5) K/uL Lymph # (Auto) (1.2-3.4) K/uL [place] # (Auto) (0.11-0.59) K/uL Eos # (Auto) (0-0.5) K/uL Baso # (Auto) (0-0.2) K/uL Immature Gran # (Auto) (0.00-0.02) K/uL Sodium (136-145) mmol/L Potassium (3.5-5.1) mmol/L Chloride (98-107) mmol/L Carbon Dioxide (21-32) mmol/L Anion Gap (3-11) BUN (6-23) mg/dl Creatinine (0.6-1.2) mg/dl Est Cr Clr Drug Dosing ml/min Est GFR ( Amer) ml/min Est GFR (Non-Af Amer) ml/min BUN/Creatinine Ratio (10-20) Glucose (70-99(Fasting)) mg/dl Calcium (8.5-10.1) mg/dl Magnesium (1.7-2.4) mg/dl Total Bilirubin (0.2-1.0) mg/dl AST (13-39) U/L ALT (7-52) U/L Alkaline Phosphatase (34-104) U/L Troponin I High Sens (0-14) pg/ml Total Protein (6.0-8.3) gm/dl Albumin (3.4-5.0) gm/dl Globulin (2.5-4.0) gm/dl Albumin/Globulin Ratio (0.9-2) TSH (0.300-4.500) uIu/ml Free T4 1.06 (0.61-1.60) ng/dl Free T3 (2.3-4.2) pg/ml Urine Color Yellow Urine Appearance Clear (Clear) Urine pH 7.0 (4.5-7.5) Ur Specific [place] 1.007 (1.000-1.030) Urine Protein Negative (Negative) Urine Glucose (UA) Negative (Negative) Urine Ketones Negative (Negative) Urine Blood 1+ H (Negative) Urine Nitrite Negative (Negative) Urine Bilirubin Negative (Negative) Urine Urobilinogen Negative (Negative) Ur Leukocyte Esterase Negative (Negative) Urine WBC (Auto) 1-5 (0-5) /hpf Urine RBC (Auto) 5-10 H (0-4) /hpf U Hyaline Cast (Auto) 1-5 (0-5) /lpf U Epithel Cells (Auto) >30 H (0-5) /lpf Urine Bacteria (Auto) 2+ H (Negative) SARS-CoV-2, RNA, NAAT NEGATIVE (NEGATIVE) Administered Medications Discontinued Medications Sodium Chloride (Nss 1000ml) 1,000 mls @ 999 mls/hr IV .Q1H1M ONE Stop: 10/26/21 16:51 Last Infusion: 10/26/21 18:19 Dose: 0 mls/hr Documented by: [id number] Admin: 10/26/21 16:29 Dose: 999 mls/hr Documented by: [id number] Promethazine HCl (Phenergan) 12.5 mg in 50.5 mls @ 202 mls/hr IV NOW STA Stop: 10/26/21 16:05 Last Infusion: 10/26/21 16:45 Dose: 0 mls/hr Documented by: [id number] Admin: 10/26/21 16:29 Dose: 202 mls/hr Documented by: [id number] Potassium Chloride (K Logan / Wtr) 10 meq in 100 mls @ 100 mls/hr IV ONE ONE; Protocol Stop: 10/26/21 17:17 Last Infusion: 10/26/21 17:38 Dose: 0 mls/hr Documented by: [id number] Admin: 10/26/21 16:35 Dose: 100 mls/hr Documented by: [id number] Morphine Sulfate (Morphine Sulfate 10 Mg/Ml Carp/Vial) 6 mg IV NOW STA Stop: 10/26/21 15:52 Last Admin: 10/26/21 16:41 Dose: 6 mg Documented by: [id number] Imaging Data Radiologist's Impression: Lumbar Spine X-Ray 10/26/21 15:51 XR lumbar spine min 4V routine CLINICAL HISTORY: fall, lower back pain. COMPARISON STUDY: 11/19/2020 TECHNIQUE: 5 Views of the lumbar spine FINDINGS: Bones: There is no evidence for fracture or malalignment. The heights of the vertebral bodies are maintained. There are no lytic or blastic lesions present. Disc spaces: The disc space heights are maintained. Facet joints: Mild hypertrophic facet joint disease is seen at the lower 2 disc space levels. Soft tissues: The paraspinal soft tissues are within normal limits. IMPRESSION: 1. No acute abnormality. 2. Mild hypertrophic facet joint disease. ACT 112: Negative or not required by law. Electronically signed by: Chintan Cruz M.D. 10/26/2021 6:38 PM Discharge Plan Visit Data Chief Complaint: Syncope Stated Complaint: SYNCOPE, BACK PAIN, NAUSEA ED Provider: Elvin Eldridge Discharge Problem: Syncope, Vomiting, Hypothyroid, Bradycardia, Lower back pain Patient Disposition: Admitted As Inpatient Condition: Fair Discharge Instructions Interventions: ED Discharge Assessment Last Done: 10/26/21 21:07 Forms Stand Alone Forms: My [facility] [employer] Prescriptions Prescriptions: No Action morphine 15 mg tablet extended release 15 mg PO TID RF: 0 morphine 15 mg tablet 15 mg PO BID PRN (Reason: Breakthrough Pain) RF: 0 duloxetine 30 mg capsule,delayed release(DR/EC) 30 mg PO DAILY@1500 RF: 0 duloxetine 60 mg capsule,delayed release(DR/EC) 60 mg PO DAILY@1500 RF: 0 metformin 500 mg tablet extended release 24 hr 500 mg PO QAM RF: 0 ondansetron 8 mg tablet,disintegrating 8 mg translingual Q8 PRN (Reason: NAUSEA/VOMITING) RF: 0 promethazine 25 mg tablet 25 mg PO Q6 PRN (Reason: Nausea) RF: 0 furosemide [Lasix] 40 mg Tablet 40 mg PO DAILY PRN (Reason: Edema) RF: 0 polyethylene glycol 3350 [Miralax] 17 gram Powder In Packet 17 g PO DAILY PRN (Reason: Constipation) RF: 0 nitroglycerin 0.4 mg tablet, sublingual 0.4 mg sublingual DIRECTED PRN (Reason: Chest Pain) RF: 0 nicotine [Nicoderm CQ] 21 mg/24 hr patch 24 hour 1 patch transdermal DAILY Qty: 28 RF: 0 topiramate [Topamax] 25 mg tablet 25 mg PO HS Qty: 30 RF: 0 atorvastatin [Lipitor] 40 mg tablet 40 mg PO DAILY Qty: 30 RF: 0 levothyroxine 125 mcg tablet See Rx Instructions .ROUTE .COMPLEX RF: 0 topiramate 100 mg tablet 100 mg PO HS RF: 0 clopidogrel 75 mg tablet 75 mg PO DAILY@1500 RF: 0 Referrals Referrals: Dajuan Bell, [Primary Care Provider] -
[2021-10-26 16:07] LABS: Albumin Globulin Ratio 1.4 (0.9-2); Albumin Level 4.7 gm/dl (3.4-5.0); BUN Creatinine Ratio 9.6 (10-20); Bilirubin,Total 0.7 mg/dl (0.2-1.0); Calcium 10.3 mg/dl (8.5-10.1); Est GFR (Non-African American) 70.7 ml/min; Globulin 3.4 gm/dl (2.5-4.0); Potassium 3.3 mmol/L (3.5-5.1); Total Protein 8.1 gm/dl (6.0-8.3)
[2021-10-26] MEDS ORDERED: POTASSIUM CHLORIDE / WTR 10 MEQ/100 ML PLCT IV ONE (16:18)
[2021-10-26 16:34] LABS: Appearance Urine Clear (Clear); Bacteria Urine Automated 2+ (Negative); Bilirubin Urine Negative (Negative); Blood Urine 1+ (Negative); Color Urine Yellow; Epithelial Cell Urine Auto >30 /lpf (0-5); Glucose Urine UA Negative (Negative); Ketones Urine Negative (Negative); Leukocyte Esterase Urine Negative (Negative); Nitrite Urine Negative (Negative); Protein Urine Negative (Negative); Specific Gravity Urine 1.007 (1.000-1.030); Urobilinogen Urine Negative (Negative)
--- NOTE | 2021-10-26 18:39 | XRay Report ---
XR lumbar spine min 4V routine CLINICAL HISTORY: fall, lower back pain. COMPARISON STUDY: 11/19/2020 TECHNIQUE: 5 Views of the lumbar spine FINDINGS: Bones: There is no evidence for fracture or malalignment. The heights of the vertebral bodies are dorothea ntained. There are no lytic or blastic lesions present. Disc spaces: The disc space heights are maintained. Facet joints: Mild hypertrophic facet joint disease is seen at the lower 2 disc space levels. Soft tissues: The paraspinal soft tissues are within normal limits. IMPRESSION: 1. No acute abnormality. 2. Mild hypertrophic facet joint disease. ACT 112: Negative or not required by law. Electronically signed by: Chintan Cruz M.D. 10/26/2021 6:38 PM
[2021-10-26] MEDS ORDERED: MoRPHine SULFATE 4 MG/ML 1 ML CARP\\VIAL IV STA (20:07)
--- NOTE | 2021-10-26 20:25 | History & Physical Report ---
Date of Service October 26, 2021 Assessment & Plan (1) Syncope and collapse: Plan: 2 episodes of syncope and collapse-not sure how long but did not have any associated symptoms Noted to have bradycardia of around 40s Will admit to telemetry unit for observation Will get serial troponins though doubt any ACS Orthostatic vitals (2) Bradyarrhythmia: Plan: Noted to have low heart rate at doctor's office EKG showed sinus bradycardia at 43 Cardiology has been consulted Has not been getting any beta-jose luis We will monitor (3) Hypothyroidism: Plan: Has been getting 250 mcg thyroxine 4 times a week and 375 mcg other 3 days of the week Her TSH was 8.1 on 09/03/2021 and today 14.257 but her free T3 and T4 are within normal range Doubt she has any hypothyroid symptoms but will keep in touch with meat cutter apprentice (4) Fibromyalgia: Plan: We will continue current medications (5) Intractable low back pain: Plan: We will continue her current medications and give morphine 4 mg x 1 dose to control acute pain (6) Depression: (7) Diarrhea: Plan: Complains to have diarrhea for the last 2 or 3 days We will check his stool for any C. difficile toxin and stool culture DVT prophylaxis Subcu heparin CODE STATUS Full (8) Chronic migraine: Plan: History of chronic migraine with TIA-like symptoms We will continue her current medications History of Present Illness Chief Complaint: Lousy for about 1 week with 2 episodes of syncope at doctor's office today Primary Care Provider: Dajuan Bell DO She is a 51-year-old white obese female with significant past medical history including chronic pain syndrome with intractable back pain, chronic migraine, anxiety/depression, fibromyalgia, tobacco use disorder, obesity and hypothyroidism apparently had been in hospital about 1 month before with strokelike symptoms. She was diagnosed to have hypothyroidism and she has been taking supplement therapy as per instructions from meat cutter apprentice in [place]. She has been complaining of feeling lousy for the last 1 week with tiredness and feeling of cold at times but no documented temperature and no problem with ur ine. She has been complaining of diarrhea about 3 or 4 times daily for the last 3 or 4 days. she does not have any abdominal pain but did have some nausea and vomited once at home, denies any cough and/or shortness of breath or chest pain. She denies any headache, blurred vision or any numbness or tingling involving any of the extremities other than her usual symptoms. Her pain seems to be aggr avating. At the doctor's office today while she was sitting down she has had 2 episodes of syncope but she is not sure whether she lost her consciousness or not. She did not have any warning before the syncope and he did not have any incontinence and denies any neurological symptoms associated with it. Was noted to have low heart rate around 40s during that time. Allergies Allergy/AdvReac Type Severity Reaction Status Date / Time gabapentin Allergy Severe anaphylaxis Verified 10/26/21 19:36 tramadol Allergy Severe ANAPHYLAXIS Verified 10/26/21 19:36 chlorpheniramine Allergy Intermediate SHORTNESS Verified 10/26/21 19:36 OF BREATH guaifenesin Allergy Intermediate SHORTNESS Verified 10/26/21 19:36 OF BREATH Sulfa (Sulfonamide Allergy Unknown Unknown Verified 10/26/21 19:36 Antibiotics) aspirin AdvReac Intermediate TINNITUS Verified 10/26/21 19:36 Corticosteroids AdvReac Intermediate Agitated Verified 10/26/21 19:36 (Glucocorticoids) metoclopramide AdvReac Intermediate anxiety Verified 10/26/21 19:36 SYMPATHOMIMETICS Allergy Unknown Unknown Uncoded 10/26/21 19:36 Home Medications Medication Instructions Recorded Confirmed Type duloxetine 30 mg capsule,delayed 30 mg PO DAILY@1500 09/02/21 10/26/21 History release duloxetine 60 mg capsule,delayed 60 mg PO DAILY@1500 09/02/21 10/26/21 History release furosemide 40 mg tablet (Lasix) 40 mg PO DAILY PRN 09/02/21 10/26/21 History metformin 500 mg tablet,extended 500 mg PO QAM 09/02/21 10/26/21 History release 24 hr morphine 15 mg immediate release 15 mg PO BID PRN 09/02/21 10/26/21 History tablet morphine 15 mg tablet,extended 15 mg PO TID 09/02/21 10/26/21 History release nitroglycerin 0.4 mg sublingual 0.4 mg SUBLINGUAL DIRECTED PRN 09/02/21 10/26/21 History tablet ondansetron 8 mg disintegrating 8 mg TRANSLINGUAL Q8 PRN 09/02/21 10/26/21 History tablet polyethylene glycol 3350 17 gram 17 g PO DAILY PRN 09/02/21 10/26/21 History oral powder packet (Miralax) promethazine 25 mg tablet 25 mg PO Q6 PRN 09/02/21 10/26/21 History nicotine 21 mg/24 hr daily 1 patch TRANSDERMAL DAILY #28 ea 09/04/21 10/26/21 Rx transdermal patch (Nicoderm CQ) clopidogrel 75 mg tablet 75 mg PO DAILY@1500 09/28/21 10/26/21 History levothyroxine 125 mcg tablet See Rx Instructions .ROUTE .COMPLEX 09/28/21 10/26/21 History topiramate 100 mg tablet 100 mg PO HS 09/28/21 10/26/21 History atorvastatin 40 mg tablet (Lipitor) 40 mg PO DAILY #30 tab 10/02/21 10/26/21 Rx topiramate 25 mg tablet (Topamax) 25 mg PO HS #30 tab 10/02/21 10/26/21 Rx Past Med/Surg History Medical History Acute exacerbation of chronic low back pain Anxiety Atelectasis Back pain Bulging lumbar disc Small broad-based posterior disc bulge with a small right paracentral focal disc protrusion Cardiomyopathy 2014 - thought to be stress induced, reported normal dobutamine stress and echo after Chronic back pain Chronic pain syndrome Depression Fibromyalgia H/O traumatic brain injury Hypokalemia Hypothyroidism (Unknown) IBS (irritable bowel syndrome) Intractable back pain Intractable nausea and vomiting Migraines Opiate dependence Tobacco abuse Surgical History Bilateral tubal ligation (Unknown) section (Unknown) H/O colonoscopy "2006 path normal" H/O cystoscopy H/O esophagogastroduodenoscopy "2006 path normal" History of knee surgery Hx of appendectomy Hx of cholecystectomy Hx of hysterectomy S/P lymph node biopsy "deep cervical inflammatory node 2007" Family History Other Diabetes Hypertension Thyroid disorder Social History Smoking Status: Current every day smoker Tobacco Type: Cigarettes Cigarettes Per Day: 20; Second Hand Exposure: Yes; Hx Alcohol Use: No Hx Substance Use: No Preferred Language: Yakut Communication Ability: Effective Visual Impairment: Partially Limited Checkman Required: No Beliefs That Will Affect Care: None marital status: Current Living Situation: Spouse and Family Current Living Situation Comment: grandson Feels Safe at Home: Yes Safety Concerns: Feels Safe At This Time Assistive Devices: None Review of Systems Review of Systems: All systems reviewed & are unremarkable except as noted in HPI & below Physical Exam Physical Exam: Lying in bed comfortably Constitutional: well developed, well nourished, + ill appearing and + obese; no acute distress Eyes: PERRL, conjunctivae normal, anicteric sclerae ENMT: external ear and nose normal, oropharynx normal Neck: trachea midline, no thyromegaly Respiratory: no respiratory distress Auscultation: lungs clear to auscultation bilaterally and + diminished lung sounds Cardiovascular: Rate/Rhythm: regular rate and regular rhythm; not bradycardic Heart Sounds: normal S1 and normal S2; no murmur Gastrointestinal (Abdomen): Inspection/Auscultation: normal bowel sounds; abdomen not distended Percussion/Palpation: abdomen soft; abdomen nontender Musculoskeletal: No acute arthritis in any joint Neurologic: Alert, awake and oriented x3. No focal sensory or no motor deficit appreciated Results & Data Results & Data ([facility]) Vital Signs (Past 12 Hours) Vital Signs Temp Pulse Pulse Resp BP BP Pulse Ox 10/26/21 19:00 61 18 133/84 96 10/26/21 17:47 42 L 20 126/64 96 10/26/21 17:37 58 L 20 124/60 99 10/26/21 15:27 76 20 125/88 96 10/26/21 14:57 37 C 90 22 123/88 99 Diagnostic Findings Laboratory Results WBC 11.58 K/uL (4.8-10.8) H 10/26/21 15:20 RBC 5.20 M/uL (4.2-5.4) 10/26/21 15:20 Hgb 15.7 g/dL (12.0-16.0) 10/26/21 15:20 Hct 46.4 % (37-47) 10/26/21 15:20 MCV 89.2 fL (80-100) 10/26/21 15:20 MCH 30.2 pg (25-34) 10/26/21 15:20 MCHC 33.8 g/dL (32-36) 10/26/21 15:20 RDW Std Deviation 47.4 fL (36.4-46.3) H 10/26/21 15:20 RDW Coeff of Roro 14.6 % (11.5-14.5) H 10/26/21 15:20 Plt Count 292 K/uL (130-400) 10/26/21 15:20 MPV 10.8 fL (7.4-10.4) H 10/26/21 15:20 Immature Gran % (Auto) 0.3 % 10/26/21 15:20 Neut % (Auto) 74.6 % 10/26/21 15:20 Lymph % (Auto) 20.5 % 10/26/21 15:20 [place] % (Auto) 4.1 % 10/26/21 15:20 Eos % (Auto) 0.3 % 10/26/21 15:20 Baso % (Auto) 0.2 % 10/26/21 15:20 Neut # (Auto) 8.65 K/uL (1.4-6.5) H 10/26/21 15:20 Lymph # (Auto) 2.37 K/uL (1.2-3.4) 10/26/21 15:20 [place] # (Auto) 0.47 K/uL (0.11-0.59) 10/26/21 15:20 Eos # (Auto) 0.03 K/uL (0-0.5) 10/26/21 15:20 Baso # (Auto) 0.02 K/uL (0-0.2) 10/26/21 15:20 Immature Gran # (Auto) 0.04 K/uL (0.00-0.02) H 10/26/21 15:20 Sodium 141 mmol/L (136-145) 10/26/21 15:20 Potassium 3.3 mmol/L (3.5-5.1) L 10/26/21 15:20 Chloride 111 mmol/L (98-107) H 10/26/21 15:20 Carbon Dioxide 21 mmol/L (21-32) 10/26/21 15:20 Anion Gap 9 (3-11) 10/26/21 15:20 BUN 9 mg/dl (6-23) 10/26/21 15:20 Creatinine 0.94 mg/dl (0.6-1.2) 10/26/21 15:20 Est Cr Clr Drug Dosing 98.0 ml/min 10/26/21 15:20 Est GFR ( Amer) 82.0 ml/min 10/26/21 15:20 Est GFR (Non-Af Amer) 70.7 ml/min 10/26/21 15:20 BUN/Creatinine Ratio 9.6 (10-20) L 10/26/21 15:20 Glucose 103 mg/dl (70-99(Fasting)) H 10/26/21 15:20 Calcium 10.3 mg/dl (8.5-10.1) H 10/26/21 15:20 Magnesium 2.2 mg/dl (1.7-2.4) 10/26/21 15:20 Total Bilirubin 0.7 mg/dl (0.2-1.0) 10/26/21 15:20 AST 16 U/L (13-39) 10/26/21 15:20 ALT 18 U/L (7-52) 10/26/21 15:20 Alkaline Phosphatase 113 U/L (34-104) H 10/26/21 15:20 Troponin I High Sens 5.0 pg/ml (0-14) 10/26/21 15:20 Total Protein 8.1 gm/dl (6.0-8.3) 10/26/21 15:20 Albumin 4.7 gm/dl (3.4-5.0) 10/26/21 15:20 Globulin 3.4 gm/dl (2.5-4.0) 10/26/21 15:20 Albumin/Globulin Ratio 1.4 (0.9-2) 10/26/21 15:20 TSH 14.257 uIu/ml (0.300-4.500) H 10/26/21 15:20 Free T4 1.06 ng/dl (0.61-1.60) 10/26/21 15:20 Free T3 3.10 pg/ml (2.3-4.2) 10/26/21 15:20 Urine Color Yellow 10/26/21 15:30 Urine Appearance Clear (Clear) 10/26/21 15:30 Urine pH 7.0 (4.5-7.5) 10/26/21 15:30 Ur Specific [place] 1.007 (1.000-1.030) 10/26/21 15:30 Urine Protein Negative (Negative) 10/26/21 15:30 Urine Glucose (UA) Negative (Negative) 10/26/21 15:30 Urine Ketones Negative (Negative) 10/26/21 15:30 Urine Blood 1+ (Negative) H 10/26/21 15:30 Urine Nitrite Negative (Negative) 10/26/21 15:30 Urine Bilirubin Negative (Negative) 10/26/21 15:30 Urine Urobilinogen Negative (Negative) 10/26/21 15:30 Ur Leukocyte Esterase Negative (Negative) 10/26/21 15:30 Urine WBC (Auto) 1-5 /hpf (0-5) 10/26/21 15:30 Urine RBC (Auto) 5-10 /hpf (0-4) H 10/26/21 15:30 U Hyaline Cast (Auto) 1-5 /lpf (0-5) 10/26/21 15:30 U Epithel Cells (Auto) >30 /lpf (0-5) H 10/26/21 15:30 Urine Bacteria (Auto) 2+ (Negative) H 10/26/21 15:30 Impressions Lumbar Spine X-Ray 10/26/21 15:51 XR lumbar spine min 4V routine CLINICAL HISTORY: fall, lower back pain. COMPARISON STUDY: 11/19/2020 TECHNIQUE: 5 Views of the lumbar spine FINDINGS: Bones: There is no evidence for fracture or malalignment. The heights of the vertebral bodies are maintained. There are no lytic or blastic lesions present. Disc spaces: The disc space heights are maintained. Facet joints: Mild hypertrophic facet joint disease is seen at the lower 2 disc space levels. Soft tissues: The paraspinal soft tissues are within normal limits. IMPRESSION: 1. No acute abnormality. 2. Mild hypertrophic facet joint disease. ACT 112: Negative or not required by law. Electronically signed by: Chintan Cruz M.D. 10/26/2021 6:38 PM Medications Administered Current Inpatient Medications Heparin Sodium (Porcine) (Heparin Sod 5,000 Unit/0.5 Ml Vial) 5,000 units SQ Q8 ANDREW Stop: 11/25/21 21:59 Morphine Sulfate (Morphine Sulfate 4 Mg/Ml 1 Ml Carp\\Vial) 4 mg IV NOW STA Stop: 10/26/21 20:08 Code Status & VTE Plan VTE Prophylaxis Plan VTE Prophylaxis will be ordered: Yes (1) Diarrhea Diarrhea type: unspecified type Qualified Code(s): R19.7 - Diarrhea, unspecified
[2021-10-26] MEDS ORDERED: POLYETHYLENE (MIRALAX) 17 GM PACK PO PRN (21:50)
[2021-10-26] MEDS ORDERED: NITROGLYCERIN SL 0.4 MG/TAB TAB SL PRN (21:50)
[2021-10-26] MEDS: TOPIRAMATE 100 MG TAB PO SCH (22:20)
[2021-10-26] MEDS: MoRPHine SULFATE CR 15 MG TABCR PO SCH (22:20)
[2021-10-26] MEDS: TOPIRAMATE 25 MG TAB PO SCH (22:20)
[2021-10-26] MEDS: HEPARIN SOD 5,000 UNIT/0.5 ML VIAL SQ SCH (22:23)
[2021-10-27 03:22] LABS: Basophils # (auto) 0.02 K/uL (0-0.2); Basophils % (auto) 0.2 %; Eosinophils # (auto) 0.12 K/uL (0-0.5); Eosinophils % (auto) 1.2 %; Hematocrit (blood only) 42.7 % (37-47); Hemoglobin 14.4 g/dL (12.0-16.0); Immature Granulocytes # (auto) 0.03 K/uL (0.00-0.02); Immature Granulocytes % (auto) 0.3 %; Lymphocytes # (auto) 3.54 K/uL (1.2-3.4); Lymphocytes % (auto) 35.5 %; Mean Corpuscular Hemoglobin 30.7 pg (25-34); Mean Corpuscular Hgb Conc 33.7 g/dL (32-36); Mean Platelet Volume 10.6 fL (7.4-10.4); Monocytes # (auto) 0.59 K/uL (0.11-0.59); Monocytes % (auto) 5.9 %; Neutrophils # (auto) 5.67 K/uL (1.4-6.5); Neutrophils % (auto) 56.9 %; Platelet Count 246 K/uL (130-400); RDW Coefficient of Variation 14.6 % (11.5-14.5); RDW Standard Deviation 48.8 fL (36.4-46.3); Red Blood Count 4.69 M/uL (4.2-5.4); White Blood Count 9.97 K/uL (4.8-10.8)
[2021-10-27 03:53] LABS: Albumin Globulin Ratio 1.3 (0.9-2); Albumin Level 3.8 gm/dl (3.4-5.0); BUN Creatinine Ratio 10.4 (10-20); Bilirubin,Total 0.7 mg/dl (0.2-1.0); Calcium 9.9 mg/dl (8.5-10.1); Creatinine Clr Calc Pharmacy 96.1 ml/min; Est GFR (African American) 79.9 ml/min; Magnesium 2.2 mg/dl (1.7-2.4); Phosphorus 2.2 mg/dl (2.5-4.9); Potassium 3.2 mmol/L (3.5-5.1); Total Protein 6.8 gm/dl (6.0-8.3)
[2021-10-27 03:58] LABS: Troponin I High Sensitivity 3.8 pg/ml (0-14)
[2021-10-27] MEDS: MoRPHine SULFATE IR 15 MG TAB (IMMEDIATE RELEASE) PO PRN (03:58)
[2021-10-27] MEDS: HEPARIN SOD 5,000 UNIT/0.5 ML VIAL SQ SCH ×3 (06:04→20:45)
[2021-10-27] MEDS ORDERED: LEVOTHYROXINE SODIUM 125 MCG TABLET PO SCH (06:30)
[2021-10-27] MEDS ORDERED: POTASSIUM PHOS 3 MMOL/1 ML INFUSION IV STA (08:21)
[2021-10-27] MEDS ORDERED: POTASSIUM PHOSPHATE 30 MMOL in SODIUM CHLORIDE 0.9% 500 ML IV ONE (08:45)
[2021-10-27] MEDS: MoRPHine SULFATE CR 15 MG TABCR PO SCH ×3 (09:32→20:45)
[2021-10-27] MEDS: PROMETHAZINE HCL 25 MG TAB PO PRN ×2 (09:32→16:41)
[2021-10-27] MEDS: ATORVASTATIN 40 MG TAB PO SCH (09:33)
[2021-10-27] MEDS: NICOTINE 21 MG/24 HR TDSY TD SCH (09:33)
--- NOTE | 2021-10-27 13:27 | Electrocardiogram Report ---
Test Reason : Blood Pressure : / mmHG Vent. Rate : 061 BPM Atrial Rate : 061 BPM P-R Int : 170 ms QRS Dur : 076 ms QT Int : 396 ms P-R-T Axes : 045 034 042 degrees QTc Int : 398 ms Poor data quality, interpretation may be adversely affected Normal sinus rhythm Low voltage QRS Borderline ECG When compared with ECG of 30-SEP-2021 20:34, No significant change was found Confirmed by Juan Krause ([id number]) on 10/27/2021 1:26:51 PM Referred By: REFERRED SELF Confirmed By:Juan Krause
--- NOTE | 2021-10-27 13:30 | Electrocardiogram Report ---
Test Reason : Blood Pressure : / mmHG Vent. Rate : 043 BPM Atrial Rate : 043 BPM P-R Int : 170 ms QRS Dur : 082 ms QT Int : 446 ms P-R-T Axes : 070 077 077 degrees QTc Int : 376 ms Marked sinus bradycardia with sinus arrhythmia Low voltage QRS Abnormal ECG When compared with ECG of 26-OCT-2021 15:15, (unconfirmed) No significant change was found Confirmed by Juan Krause ([id number]) on 10/27/2021 1:30:07 PM Referred By: REFERRED SELF Confirmed By:Juan Krause
--- NOTE | 2021-10-27 14:26 | Hospitalist Progress Note ---
Date of Service October 27, 2021 Assessment & Plan (1) Syncope and collapse: Plan: 2 episodes of syncope and collapse-not sure how long but did not have any associated symptoms Noted to have bradycardia of around 40s Will admit to telemetry unit for observation Will get serial troponins though doubt any ACS-no ACS Orthostatic vitals-no significant change in blood pressure but the test was partial Denies any significant symptoms except nausea and anorexia We will get PT and OT evaluation (2) Bradyarrhythmia: Plan: Noted to have low heart rate at doctor's office EKG showed sinus bradycardia at 43 Cardiology has been contacted by the ER physician Has not been getting any beta-jose luis We will monitor-no more bloody arrhythmias noted We will ask for cardiology evaluation if there is any significant bradyarrhythmias (3) Hypothyroidism: Plan: Has been getting 250 mcg thyroxine 4 times a week and 375 mcg other 3 days of the week Her TSH was 8.1 on 09/03/2021 and today 14.257 but her free T3 and T4 are within normal range Doubt she has any hypothyroid symptoms but will keep in touch with food and beverage director With [place] text that food and beverage director (4) Fibromyalgia: Plan: We will continue current medications (5) Intractable low back pain: Plan: We will continue her current medications and give morphine 4 mg x 1 dose to control acute pain (6) Depression: (7) Diarrhea: Plan: Complains to have diarrhea for the last 2 or 3 days We will check his stool for any C. difficile toxin and stool culture C. difficile toxins-negative DVT prophylaxis Subcu heparin CODE STATUS Full Likely discharge tomorrow (8) Chronic migraine: Plan: History of chronic migraine with TIA-like symptoms We will continue her current medications Admission and Anticipated Discharge Date Admission Date: October 26, 2021 Subjective 10/27/2021 The patient was seen and examined in telemetry unit She has been nauseous and anorexic Denies any cardiac and respiratory symptoms Remains generally weak Review of Systems Review of Systems: All systems reviewed and are unremarkable except as noted below Physical Exam Physical Exam: Lying in bed comfortably Constitutional: well developed, well nourished, + ill appearing and + obese; no acute distress Eyes: PERRL, conjunctivae normal, anicteric sclerae ENMT: external ear and nose normal, oropharynx normal Neck: trachea midline, no thyromegaly Respiratory: no respiratory distress Auscultation: lungs clear to auscultation bilaterally and + diminished lung sounds Cardiovascular: Rate/Rhythm: regular rate and regular rhythm; not bradycardic Heart Sounds: normal S1 and normal S2; no murmur Gastrointestinal (Abdomen): Inspection/Auscultation: normal bowel sounds; abdomen not distended Percussion/Palpation: abdomen soft; abdomen nontender Musculoskeletal: No acute arthritis in any joint Neurologic: Alert, awake and oriented x3. No focal sensory or motor deficit appreciated Lymphatic: no cervical or axillary lymphadenopathy Results & Data Results & Data ([facility]) Vital Signs (Past 12 Hours) Vital Signs Temp Pulse Resp BP Pulse Ox 10/27/21 12:00 36.8 C 57 L 16 119/63 100 10/27/21 07:10 36.8 C 56 L 15 93/55 L 96 10/27/21 03:45 37.0 C 75 20 147/112 H 95 Laboratory Results Short CBC 10/26/21 10/27/21 Range/Units 15:20 03:14 WBC 11.58 H 9.97 (4.8-10.8) K/uL Hgb 15.7 14.4 (12.0-16.0) g/dL Hct 46.4 42.7 (37-47) % Plt Count 292 246 (130-400) K/uL BMP 10/26/21 10/27/21 15:20 03:14 Sodium 141 141 Potassium 3.3 L 3.2 L Chloride 111 H 113 H Carbon Dioxide 21 23 BUN 9 10 Creatinine 0.94 0.96 Glucose 103 H 94 Calcium 10.3 H 9.9 Liver Function 10/26/21 10/27/21 Range/Units 15:20 03:14 Total Bilirubin 0.7 0.7 (0.2-1.0) mg/dl AST 16 13 (13-39) U/L ALT 18 13 (7-52) U/L Alkaline Phosphatase 113 H 94 (34-104) U/L Albumin 4.7 3.8 (3.4-5.0) gm/dl Urine 10/26/21 Range/Units 15:30 Urine Color Yellow Urine Appearance Clear (Clear) Urine pH 7.0 (4.5-7.5) Ur Specific [place] 1.007 (1.000-1.030) Urine Protein Negative (Negative) Urine Glucose (UA) Negative (Negative) Medications Administered Current Inpatient Medications Atorvastatin Calcium (Atorvastatin 40 Mg Tab) 40 mg PO DAILY [facility] Stop: 11/26/21 08:59 Last Admin: 10/27/21 09:33 Dose: Not Given Documented by: Clopidogrel Bisulfate (Clopidogrel Bisulfate 75 Mg Tab) 75 mg PO DAILY@1500 [facility] Stop: 11/26/21 14:59 Duloxetine HCl (Duloxetine Hcl 30 Mg Cap) 30 mg PO DAILY@1500 [facility] Stop: 11/26/21 14:59 Duloxetine HCl (Duloxetine Hcl 60 Mg Cap) 60 mg PO DAILY@1500 [facility] Stop: 11/26/21 14:59 Heparin Sodium (Porcine) (Heparin Sod 5,000 Unit/0.5 Ml Vial) 5,000 units SQ Q8 [facility] Stop: 11/25/21 21:59 Last Admin: 10/27/21 06:04 Dose: 5,000 units Documented by: Potassium Phosphate 30 mmol/ (Sodium Chloride) 510 mls @ 88 mls/hr IV ONE ONE Stop: 10/27/21 14:32 Last Admin: 10/27/21 09:32 Dose: 88 mls/hr Documented by: Levothyroxine Sodium (Levothyroxine Sodium 125 Mcg Tablet) 375 mcg PO SuTuTh@0630 [facility] Stop: 11/27/21 06:29 Levothyroxine Sodium (Levothyroxine Sodium 125 Mcg Tablet) 250 mcg PO MoWeFrSa@0630 [facility] Stop: 11/26/21 06:29 Last Admin: 10/27/21 06:04 Dose: 250 mcg Documented by: Miscellaneous (Remove Nicoderm Patch) 1 ea N/A DAILY@0859 [facility] Stop: 11/26/21 08:58 Last Admin: 10/27/21 08:52 Dose: Not Given Documented by: Morphine Sulfate (Morphine Sulfate Ir 15 Mg Tab (Immediate Release)) 15 mg PO BID PRN PRN Reason: Breakthrough Pain Stop: 11/09/21 21:49 Last Admin: 10/27/21 03:58 Dose: 15 mg Documented by: Morphine Sulfate (Morphine Sulfate Cr 15 Mg Tabcr) 15 mg PO TID [facility] Stop: 11/09/21 21:49 Last Admin: 10/27/21 09:32 Dose: 15 mg Documented by: Nicotine (Nicotine 21 Mg/24 Hr Tdsy) 21 mg TD DAILY [facility] Stop: 11/26/21 08:59 Last Admin: 10/27/21 09:33 Dose: 21 mg Documented by: Nitroglycerin (Nitroglycerin Sl 0.4 Mg/Tab Tab) 0.4 mg SL UD PRN PRN Reason: Chest Pain Stop: 11/25/21 21:49 Polyethylene Glycol (Polyethylene (Miralax) 17 Gm Pack) 17 gm PO DAILY PRN PRN Reason: Constipation Stop: 11/25/21 21:49 Promethazine HCl (Promethazine Hcl 25 Mg Tab) 25 mg PO Q6 PRN PRN Reason: Nausea Stop: 11/25/21 21:49 Last Admin: 10/27/21 09:32 Dose: 25 mg Documented by: Topiramate (Topiramate 25 Mg Tab) 25 mg PO [facility] Stop: 11/25/21 21:49 Last Admin: 10/26/21 22:20 Dose: 25 mg Documented by: Topiramate (Topiramate 100 Mg Tab) 100 mg PO [facility] Stop: 11/25/21 21:49 Last Admin: 10/26/21 22:20 Dose: 100 mg Documented by: (1) Diarrhea Diarrhea type: unspecified type Qualified Code(s): R19.7 - Diarrhea, unspecified
[2021-10-27] MEDS ORDERED: CLOPIDOGREL BISULFATE 75 MG TAB PO SCH (15:00)
[2021-10-27] MEDS ORDERED: DULoxetine HCL 30 MG CAP PO SCH (15:00)
[2021-10-27] MEDS ORDERED: DULoxetine HCL 60 MG CAP PO SCH (15:00)
[2021-10-27] MEDS: TOPIRAMATE 25 MG TAB PO SCH (20:45)
[2021-10-27] MEDS: TOPIRAMATE 100 MG TAB PO SCH (20:45)
[2021-10-28] MEDS: MoRPHine SULFATE IR 15 MG TAB (IMMEDIATE RELEASE) PO PRN ×2 (04:44→12:26)
[2021-10-28] MEDS: PROMETHAZINE HCL 25 MG TAB PO PRN (04:52)
[2021-10-28] MEDS: HEPARIN SOD 5,000 UNIT/0.5 ML VIAL SQ SCH (04:54)
[2021-10-28] MEDS ORDERED: LEVOTHYROXINE SODIUM 125 MCG TABLET PO SCH (06:30)
[2021-10-28] MEDS: NICOTINE 21 MG/24 HR TDSY TD SCH (08:14)
[2021-10-28] MEDS: ATORVASTATIN 40 MG TAB PO SCH (08:16)
[2021-10-28] MEDS: MoRPHine SULFATE CR 15 MG TABCR PO SCH (08:22)
[2021-10-28 09:39] LABS: BUN Creatinine Ratio 13.2 (10-20); Calcium 9.9 mg/dl (8.5-10.1); Creatinine Clr Calc Pharmacy 101.6 ml/min; Est GFR (African American) 85.3 ml/min; Est GFR (Non-African American) 73.6 ml/min; Potassium 3.5 mmol/L (3.5-5.1)
[2021-10-28 12:43] LABS: Adenovirus F 40/41 PCR Not Detected (NotDetected); Astrovirus PCR Not Detected (NotDetected); Campylobacter PCR Not Detected (NotDetected); Clostridium diff Toxin A/B PCR Not Detected (NotDetected); Cryptosporidium PCR Not Detected (NotDetected); Cyclospora cayetanensis PCR Not Detected (NotDetected); Entamoeba histolytica PCR Not Detected (NotDetected); Enteroaggregative E.coli(EAEC) Not Detected (NotDetected); Enteropathogenic E.coli (EPEC) Not Detected (NotDetected); Enterotoxigenic E.coli (ETEC) Not Detected (NotDetected); Giardia lamblia PCR Not Detected (NotDetected); Norovirus GI/GII PCR Not Detected (NotDetected); Plesiomonas shigelloides PCR Not Detected (NotDetected); Rotavirus A PCR Not Detected (NotDetected); Salmonella PCR Not Detected (NotDetected); Sapovirus PCR Not Detected (NotDetected); Shiga-like Toxin E.coli (STEC) Not Detected (NotDetected); Shigella/Enteroinvasive E.coli Not Detected (NotDetected); Vibrio cholerae PCR Not Detected (NotDetected); Vibrio species PCR Not Detected (NotDetected); Yersinia enterocolitica PCR Not Detected (NotDetected)
--- NOTE | 2021-10-28 12:59 | Hospitalist Progress Note ---
Date of Service October 28, 2021 Assessment & Plan (1) Syncope and collapse: Plan: 2 episodes of syncope and collapse-not sure how long but did not have any associated symptoms Noted to have bradycardia of around 40s Will admit to telemetry unit for observation Will get serial troponins though doubt any ACS-no ACS Orthostatic vitals-no significant change in blood pressure but the test was partial Denies any significant symptoms except nausea and anorexia We will get PT and OT evaluation-did very well with PT and OT No postural symptoms and/or hypotension She denies any more dizziness (2) Bradyarrhythmia: Plan: Noted to have low heart rate at doctor's office EKG showed sinus bradycardia at 43 Cardiology has been contacted by the ER physician Has not been getting any beta-jose luis We will monitor-no more bloody arrhythmias noted We will ask for cardiology evaluation if there is any significant bradyarrhythmias Monitor reviewed heart rate goes down below 40 for variation short time while sleeping otherwise average heart rate remains around 50s (3) Hypothyroidism: Plan: Has been getting 250 mcg thyroxine 4 times a week and 375 mcg other 3 days of the week Her TSH was 8.1 on 09/03/2021 and today 14.257 but her free T3 and T4 are within normal range Doubt she has any hypothyroid symptoms but will keep in touch with endocr inologist Advised to continue current doses of antithyroid medications and keep appointment with associate pastor (4) Fibromyalgia: Plan: We will continue current medications (5) Intractable low back pain: Plan: We will continue her current medications and give morphine 4 mg x 1 dose to control acute pain (6) Depression: (7) Diarrhea: Plan: Complains to have diarrhea for the last 2 or 3 days We will check his stool for any C. difficile toxin and stool culture C. difficile toxins-negative DVT prophylaxis Subcu heparin CODE STATUS Full Will discharge home this afternoon (8) Chronic migraine: Plan: History of chronic migraine with TIA-like symptoms We will continue her current medications Admission and Anticipated Discharge Date Admission Date: October 26, 2021 Subjective 10/27/2021 The patient was seen and examined in telemetry unit She has been nauseous and anorexic Denies any cardiac and respiratory symptoms Remains generally weak 10/28/2021 The patient was seen and examined in telemetry unit She has been feeling much better denies any more dizziness She did not have any postural hypotension and did not have any significant bradycardia She has had physical therapy without any symptoms Review of Systems Review of Systems: All systems reviewed and are unremarkable except as noted below Physical Exam Physical Exam: Lying in bed comfortably Constitutional: well developed, well nourished, + ill appearing and + obese; no acute distress Eyes: PERRL, conjunctivae normal, anicteric sclerae ENMT: external ear and nose normal, oropharynx normal Neck: trachea midline, no thyromegaly Respiratory: no respiratory distress Auscultation: lungs clear to auscultation bilaterally and + diminished lung sounds Cardiovascular: Rate/Rhythm: regular rate and regular rhythm; not bradycardic Heart Sounds: normal S1 and normal S2; no murmur Gastrointestinal (Abdomen): Inspection/Auscultation: normal bowel sounds; abdomen not distended Percussion/Palpation: abdomen soft; abdomen nontender Lymphatic: no cervical or axillary lymphadenopathy Results & Data Results & Data ([facility]) Vital Signs (Past 12 Hours) Vital Signs Temp Pulse Pulse Resp BP Pulse Ox 10/28/21 12:31 36.7 C 73 18 111/72 95 10/28/21 11:57 36.7 C 73 18 111/72 95 10/28/21 09:06 53 L 10/28/21 08:01 36.7 C 54 L 18 115/63 94 10/28/21 03:00 37.2 C 54 L 20 134/74 95 Laboratory Results [facility] 10/28/21 09:00 Sodium 138 Potassium 3.5 Chloride 110 H Carbon Dioxide 23 BUN 12 Creatinine 0.91 Glucose 92 Calcium 9.9 (1) Diarrhea Diarrhea type: unspecified type Qualified Code(s): R19.7 - Diarrhea, unspecified
--- NOTE | 2021-10-28 17:35 | Discharge Summary ---
Date of Service October 28, 2021 Admission HPI Per Admitting Provider She is a 51-year-old white obese female with significant past medical history including chronic pain syndrome with intractable back pain, chronic migraine, anxiety/depression, fibromyalgia, tobacco use disorder, obesity and hypothyroidism apparently had been in hospital about 1 month before with strokelike symptoms. She was diagnosed to have hypothyroidism and she has been taking supplement therapy as per instructions from supervisor farm equipment maintenance in [place]. She has been complaining of feeling lousy for the last 1 week with tiredness and feeling of cold at times but no documented temperature and no problem with urine. She has been complaining of diarrhea about 3 or 4 times daily for the last 3 or 4 days. she does not have any abdominal pain but did have some nausea and vomited once at home, denies any cough and/or shortness of breath or chest pain. She denies any headache, blurred vision or any numbness or tingling involving any of the extremities other than her usual symptoms. Her pain seems to be aggravating. At the doctor's office today while she was sitting down she has had 2 episodes of syncope but she is not sure whether she lost her consciousness or not. She did not have any warning before the syncope and he did not have any incontinence and denies any neurological symptoms associated with it. Was noted to have low heart rate around 40s during that time. Admission Exam Per Admitting Provider Physical Exam: Lying in bed comfortably Constitutional: well developed, well nourished, + ill appearing and + obese; no acute distress Eyes: PERRL, conjunctivae normal, anicteric sclerae ENMT: external ear and nose normal, oropharynx normal Neck: trachea midline, no thyromegaly Respiratory: no respiratory distress Auscultation: lungs clear to auscultation bilaterally and + diminished lung sounds Cardiovascular: Rate/Rhythm: regular rate and regular rhythm; not bradycardic Heart Sounds: normal S1 and normal S2; no murmur Gastrointestinal (Abdomen): Inspection/Auscultation: normal bowel sounds; abdomen not distended Percussion/Palpation: abdomen soft; abdomen nontender Musculoskeletal: No acute arthritis in any joint Neurologic: Alert, awake and oriented x3. No focal sensory or no motor defi cit appreciated Principal Diagnosis Syncope likely vasovagal, hypothyroidism, asymptomatic bradycardia Discharge Exam Lying in bed comfortably Constitutional well developed, well nourished, + ill appearing and + obese; no acute distress Eyes PERRL, conjunctivae normal, anicteric sclerae ENMT external ear and nose normal, oropharynx normal Neck trachea midline, no thyromegaly Respiratory no respiratory distress Auscultation: lungs clear to auscultation bilaterally and + diminished lung sounds Cardiovascular Rate/Rhythm: regular rate and regular rhythm; not bradycardic Heart Sounds: normal S1 and normal S2; no murmur Gastrointestinal (Abdomen) Inspection/Auscultation: normal bowel sounds; abdomen not distended Percussion/Palpation: abdomen soft; abdomen nontender Lymphatic no cervical or axillary lymphadenopathy Discharge Data Allergies Allergy/AdvReac Type Severity Reaction Status Date / Time gabapentin Allergy Severe anaphylaxis Verified 10/26/21 19:36 tramadol Allergy Severe ANAPHYLAXIS Verified 10/26/21 19:36 chlorpheniramine Allergy Intermediate SHORTNESS Verified 10/26/21 19:36 OF BREATH guaifenesin Allergy Intermediate SHORTNESS Verified 10/26/21 19:36 OF BREATH Sulfa (Sulfonamide Allergy Unknown Unknown Verified 10/26/21 19:36 Antibiotics) aspirin AdvReac Intermediate TINNITUS Verified 10/26/21 19:36 Corticosteroids AdvReac Intermediate Agitated Verified 10/26/21 19:36 (Glucocorticoids) metoclopramide AdvReac Intermediate anxiety Verified 10/26/21 19:36 SYMPATHOMIMETICS Allergy Unknown Unknown Uncoded 10/26/21 19:36 Consultations 10/26/21 19:16 ED Decision to Admit Stat Hospital Course (1) Syncope and collapse: 2 episodes of syncope and collapse-not sure how long but did not have any associated symptoms Noted to have bradycardia of around 40s Will admit to telemetry unit for observation Will get serial troponins though doubt any ACS-no ACS Orthostatic vitals-no significant change in blood pressure but the test was partial Denies any significant symptoms except nausea and anorexia We will get PT and OT evaluation-did very well with PT and OT No postural symptoms and/or hypotension She denies any more dizziness (2) Bradyarrhythmia: Noted to have low heart rate at doctor's office EKG showed sinus bradycardia at 43 Cardiology has been contacted by the ER physician Has not been getting any beta-jose luis We will monitor-no more bloody arrhythmias noted We will ask for cardiology evaluation if there is any significant bradyarrhyth mias Monitor reviewed heart rate goes down below 40 for variation short time while sleeping otherwise average heart rate remains around 50s (3) Hypothyroidism: Has been getting 250 mcg thyroxine 4 times a week and 375 mcg other 3 days of the week Her TSH was 8.1 on 09/03/2021 and today 14.257 but her free T3 and T4 are within normal range Doubt she has any hypothyroid symptoms but will keep in touch with supervisor farm equipment maintenance Advised to continue current doses of antithyroid medications and keep appointment with supervisor farm equipment maintenance (4) Fibromyalgia: We will continue current medications (5) Intractable low back pain: We will continue her current medications and give morphine 4 mg x 1 dose to control acute pain (6) Depression: (7) Diarrhea: Complains to have diarrhea for the last 2 or 3 days We will check his stool for any C. difficile toxin and stool culture C. difficile toxins-negative DVT prophylaxis Subcu heparin CODE STATUS Full Will discharge home this afternoon (8) Chronic migraine: History of chronic migraine with TIA-like symptoms We will continue her current medications Total Time Total Time Spent Total Time Spent (In Minutes): 35 minutes Discharge Plan Discharge Items Patient Disposition: Home - Self-Care Reason For Visit: SYNCOPE, BRADYARRHYTHMIA, HYPOTHYROIDISM Discharge Diagnosis: Syncope likely vasovagal, hypothyroidism, asymptomatic bradycardia Condition on Discharge: Fair Activity: Resume your previous activity Non-emergency contact: Primary Care Provider Call non-emergency contact if: you have any medication questions and your symptoms worsen Follow-up/Referrals: Dajuan Bell DO [Primary Care Provider] - (Date & Time 11/04/2021 11:00 AM Provider Gerry Lees III, MD Department Family Practice [facility] ) Myah Saini MD [Physician] - (Date & Time 11/12/2021 10:00 AM Provider Myah Saini MD Department Neurology [facility] ) Diet: Heart Healthy Addtl Attending Provider Instructions: Please take precautions to avoid fall. Try to drink more fluid No change in your current medication Please keep appointments with your healthcare provider Pending Studies at Discharge: No Stand-Alone Forms: My [employer], Smoking Cessation Medications and DC Order Prescriptions: Continued morphine 15 mg tablet extended release 15 mg PO TID RF: 0 morphine 15 mg tablet 15 mg PO BID PRN (Reason: Breakthrough Pain) RF: 0 duloxetine 30 mg capsule,delayed release(DR/EC) 30 mg PO DAILY@1500 RF: 0 duloxetine 60 mg capsule,delayed release(DR/EC) 60 mg PO DAILY@1500 RF: 0 metformin 500 mg tablet extended release 24 hr 500 mg PO QAM RF: 0 ondansetron 8 mg tablet,disintegrating 8 mg translingual Q8 PRN (Reason: NAUSEA/VOMITING) RF: 0 promethazine 25 mg tablet 25 mg PO Q6 PRN (Reason: Nausea) RF: 0 furosemide [Lasix] 40 mg Tablet 40 mg PO DAILY PRN (Reason: Edema) RF: 0 polyethylene glycol 3350 [Miralax] 17 gram Powder In Packet 17 g PO DAILY PRN (Reason: Constipation) RF: 0 nitroglycerin 0.4 mg tablet, sublingual 0.4 mg sublingual DIRECTED PRN (Reason: Chest Pain) RF: 0 nicotine [Nicoderm CQ] 21 mg/24 hr patch 24 hour 1 patch transdermal DAILY Qty: 28 RF: 0 topiramate [Topamax] 25 mg tablet 25 mg PO HS Qty: 30 RF: 0 atorvastatin [Lipitor] 40 mg tablet 40 mg PO DAILY Qty: 30 RF: 0 levothyroxine 125 mcg tablet See Rx Instructions .ROUTE .COMPLEX RF: 0 topiramate 100 mg tablet 100 mg PO HS RF: 0 clopidogrel 75 mg tablet 75 mg PO DAILY@1500 RF: 0 Discharge Orders: Discharge Order (Routine); Ordered 10/28/21 Ordered By: Roz Figueredo Admission Data Admit Date/Time: 10/26/21 20:04 Attending Provider: Roz Figueredo Admit Provider: Roz Figueredo Primary Care Provider: Dajuan Bell Other Providers: Ivan Hebert Other Interventions: Discharge Summary Assessment (RN) Last Done: 10/28/21 12:31
== END 2021-10-28 13:46 | disposition home or self-care (01) ==
LOC: 2E 14:47 → ED 14:47 → 2E 21:07

== ENCOUNTER 2022-02-26 14:16 | Observation (INO) ==
[2022-02-26 14:50] LABS: Basophils # (auto) 0.06 K/uL (0-0.2); Basophils % (auto) 0.4 %; Eosinophils # (auto) 0.07 K/uL (0-0.50); Eosinophils % (auto) 0.5 %; Hematocrit (blood only) 46.9 % (34.1-44.9); Hemoglobin 16.2 g/dl (12.0-16.0); Immature Granulocytes # (auto) 0.03 K/uL (0.00-0.02); Immature Granulocytes % (auto) 0.2 %; Lymphocytes # (auto) 2.04 K/uL (1.2-3.4); Lymphocytes % (auto) 14.7 %; Mean Corpuscular Hemoglobin 30.7 pg (25.0-34.0); Mean Corpuscular Hgb Conc 34.5 g/dL (32.0-36.0); Mean Platelet Volume 10.7 fL (9.4-12.3); Monocytes # (auto) 0.73 K/uL (0.24-0.82); Monocytes % (auto) 5.2 %; Neutrophils # (auto) 10.99 K/uL (1.4-6.5); Platelet Count 246 K/uL (130-400); RDW Coefficient of Variation 13.3 % (11.5-14.5); RDW Standard Deviation 43.8 fL (36.4-46.3); Red Blood Count 5.27 M/uL (3.93-5.22); White Blood Count 13.92 K/ul (4.8-10.8)
[2022-02-26] MEDS ORDERED: SODIUM CHLORIDE 0.9% 1000ML 1,000 ML IV ONE (14:52)
[2022-02-26 14:58] LABS: Appearance Urine Cloudy (Clear); Bacteria Urine Automated 1+ (Negative); Bilirubin Urine Negative (Negative); Blood Urine 2+ (Negative); Color Urine Yellow; Epithelial Cell Urine Auto >30 /lpf (0-5); Glucose Urine UA Negative (Negative); Ketones Urine Negative (Negative); Leukocyte Esterase Urine Negative (Negative); Nitrite Urine Negative (Negative); Protein Urine Negative (Negative); Specific Gravity Urine 1.015 (1.000-1.030); Urobilinogen Urine Negative (Negative)
[2022-02-26 15:11] LABS: Albumin Globulin Ratio 1.3 (0.9-2); Albumin Level 4.2 gm/dl (3.4-5.0); BUN Creatinine Ratio 10.2 (10-20); Bilirubin,Total 0.6 mg/dl (0.2-1.0); Calcium 10.4 mg/dl (8.5-10.1); Creatinine Clr Calc Pharmacy 50.6 ml/min; Est GFR (African American) 38.4 ml/min; Est GFR (Non-African American) 33.1 ml/min; Globulin 3.2 gm/dl (2.5-4.0); Potassium 3.7 mmol/L (3.5-5.1); Total Protein 7.4 gm/dl (6.0-8.3)
[2022-02-26] MEDS ORDERED: PROMETHAZINE 6.25 MG/50.25 ML BAG IV STA (15:14)
[2022-02-26] MEDS ORDERED: ACETAMINOPHEN 1000 MG/100 ML IV IV STA (15:14)
[2022-02-26] MEDS ORDERED: ONDANSETRON INJ 2 MG/ML 2 ML VIAL IV STA (15:14)
[2022-02-26] MEDS ORDERED: MoRPHine SULFATE 4 MG/ML 1 ML CARP\\VIAL IV STA ×2 (15:14→16:54)
--- NOTE | 2022-02-26 15:17 | Emergency Department Note ---
Impression & Plan Bilateral flank pain, Vomiting, Leukocytosis, MARY (acute kidney injury) ED Provider Note NAME: ALLAN FLORENCE AGE: 51 SEX: F : 1970 ARRIVES VIA: Walk-In INFORMANT: [Patient] ED PROVIDER(S): [Elvin Eldridge MD] CHIEF COMPLAINT: Flank pain HISTORY OF PRESENT ILLNESS: The patient is a 51-year-old female presents to the ER with bilateral flank pain that started yesterday. The pain does radiate to the front. The pain has been severe. She has had nausea and vomiting. She has had some chills but no fever. No cough or congestion or shortness of breath. No respiratory complaints. She has been drinking fluids but has not been urinating. There has been a very slight amount of diarrhea. The patient has no history of renal stones. She states that she had a Toradol shot yesterday about 3 hours before this all began. She has had Toradol multiple times in the past without difficulty. REVIEW OF SYSTEMS: See HPI for pertinent positives and negatives. A total of ten systems were reviewed and were otherwise negative. PMHx/PSHx: See Below SOCIAL HISTORY: See Below. PHYSICAL EXAM: GENERAL: Patient is in mild distress from pain, actively vomiting HEENT: No acute trauma, normocephalic atraumatic, mucous membranes moist, no nasal congestion, no scleral icterus. NECK: No stridor, no adenopathy, no meningismus, trachea is midline. LUNGS: Clear to auscultation bilaterally, no wheeze, no rhonchi, breath sounds equal. HEART: Without murmurs gallops or rubs, regular rate and rhythm. ABDOMEN: Soft, nontender, bowel sounds positive, no peritonitis. EXTREMITIES: No cyanosis or edema, full range of motion of all the joints without pain or difficulty, no signs for acute trauma. NEUROLOGIC: Oriented x 3, no acute motor or sensory deficits, no focal weakness. SKIN: No rash, no jaundice, no diaphoresis. Back: Bilateral flank discomfort to percussion. DIFFERENTIAL DIAGNOSIS: Appendicitis, ovarian cyst, ovarian torsion, diverticulitis, UTI, obstruction, mesenteric ischemia, aortic pathology, inflammatory bowel disease, renal colic, PUD, pancreatitis, biliary pathology, hernia, volvulus, constipation, as well as other pathologies. EMERGENCY DEPARTMENT COURSE/PROCEDURES: ECG: Indication was abdominal pain and vomiting. The ECG shows a sinus bradycardia with a rate of 46. There is baseline artifact. There is no ST elevation, no PVCs. The QTc is 400. Continuous Cardiac Monitoring: An order was placed for continuous cardiac monitoring. The monitor shows a rate of 48 with sinus bradycardia. MEDICAL DECISION MAKING: There is a mild leukocytosis, this could be consistent with infection or just the stress of her situation. No concerning anemia. Creatinine was elevated at 1.76, this is a significant increase for her. No electrolyte abnormality in need of emergent correction. No concerning liver enzyme elevation. Urinalysis shows blood, no obvious infection. COVID test returned negative. Abdominal and pelvis CT suggests a potential infection to the upper urinary system, there was no urinary obstruction. No bowel obstruction. The patient was given IV saline, 1.5 L. She was given IV Phenergan and IV Zofran. She received IV morphine for pain, she was given IV Tylenol and IV ceftriaxone. The patient is quite uncomfortable. She has evidence for acute kidney injury. She has a leukocytosis. I do think a hospital stay and further care is warranted. I did speak with the patient at length. I spoke with case management, the on-call hospitalist was consulted. Past Med/Surg History Medical History Acute exacerbation of chronic low back pain Anxiety Atelectasis Back pain Bulging lumbar disc Small broad-based posterior disc bulge with a small right paracentral focal disc protrusion Cardiomyopathy 2014 - thought to be stress induced, reported normal dobutamine stress and echo after Chronic back pain Chronic pain syndrome Depression Fibromyalgia H/O traumatic brain injury Hypokalemia Hypothyroidism (Unknown) IBS (irritable bowel syndrome) Intractable back pain Intractable nausea and vomiting Migraines Opiate dependence Tobacco abuse Surgical History Bilateral tubal ligation (Unknown) section (Unknown) H/O colonoscopy "2006 path normal" H/O cystoscopy H/O esophagogastroduodenoscopy "2006 path normal" History of knee surgery Hx of appendectomy Hx of cholecystectomy Hx of hysterectomy S/P lymph node biopsy "deep cervical inflammatory node 2007" Family History Other Diabetes Hypertension Thyroid disorder Social History Smoking Status: Current every day smoker Tobacco Type: Cigarettes Cigarettes Per Day: 20; Second Hand Exposure: Yes; Hx Alcohol Use: No Hx Substance Use: No Preferred Language: [place] Communication Ability: Effective Visual Impairment: Partially Limited Real Estate Paralegal Required: No Beliefs That Will Affect Care: None marital status: Current Living Situation: Spouse and Family Current Living Situation Comment: grandson Feels Safe at Home: Yes Assistive Devices: None Allergies Allergies Allergy/AdvReac Type Severity Reaction Status Date / Time gabapentin Allergy Severe anaphylaxis Verified 02/26/22 16:03 Iodinated Contrast Media Allergy Severe heart Verified 02/26/22 16:03 races,rash,pain in head tramadol Allergy Severe ANAPHYLAXIS Verified 02/26/22 16:03 chlorpheniramine Allergy Intermediate SHORTNESS Verified 02/26/22 16:03 OF BREATH guaifenesin Allergy Intermediate SHORTNESS Verified 02/26/22 16:03 OF BREATH Sulfa (Sulfonamide Allergy Unknown Unknown Verified 02/26/22 16:03 Antibiotics) aspirin AdvReac Intermediate TINNITUS Verified 02/26/22 16:03 Corticosteroids AdvReac Intermediate Agitated Verified 02/26/22 16:03 (Glucocorticoids) metoclopramide AdvReac Intermediate anxiety Verified 02/26/22 16:03 SYMPATHOMIMETICS Allergy Unknown Unknown Uncoded 02/26/22 16:03 Home Meds Home Medications Medication Instructions Recorded Confirmed duloxetine 30 mg capsule,delayed 30 mg PO DAILY@1500 09/02/21 02/26/22 release duloxetine 60 mg capsule,delayed 60 mg PO DAILY@1500 09/02/21 02/26/22 release morphine 15 mg immediate release 15 mg PO BID PRN Breakthrough Pain 09/02/21 02/26/22 tablet morphine 15 mg tablet,extended 15 mg PO BID 09/02/21 02/26/22 release nitroglycerin 0.4 mg sublingual 0.4 mg sublingual DIRECTED PRN 09/02/21 02/26/22 tablet Chest Pain ondansetron 8 mg disintegrating 8 mg translingual Q8 PRN 09/02/21 02/26/22 tablet NAUSEA/VOMITING polyethylene glycol 3350 17 gram 17 g PO DAILY PRN Constipation 09/02/21 02/26/22 oral powder packet (Miralax) promethazine 25 mg tablet 25 mg PO Q6 PRN Nausea 09/02/21 02/26/22 clopidogrel 75 mg tablet 75 mg PO HS 09/28/21 02/26/22 levothyroxine 125 mcg tablet See Rx Instructions .Route .COMPLEX 09/28/21 02/26/22 topiramate 100 mg tablet 150 mg PO HS 09/28/21 02/26/22 aspirin 81 mg PO DAILY 02/26/22 02/26/22 baclofen 5 mg tablet 5 mg PO BID PRN Muscle Spasm 02/26/22 02/26/22 Previous Rx's Medication Instructions Recorded nicotine 21 mg/24 hr daily 1 patch transdermal DAILY #28 ea 09/04/21 transdermal patch (Nicoderm CQ) Results & Data (ED) Vital Signs Vital Signs - 24 hr 02/26/22 14:19 02/26/22 17:03 02/26/22 17:04 Temperature 37.0 C Temperature Source Oral Pulse Rate 75 Pulse Rate [Apical] 62 Respiratory Rate 20 16 Respiratory Effort / Characteristics Non-Labored Spontaneous Non-Labored Spontaneous Respiratory Depth Normal Normal Respiratory Pattern Regular Blood Pressure 161/114 H 77/60 L Blood Pressure [Left Arm] 77/60 L Blood Pressure Mean 129 65 Blood Pressure Mean [Left Arm] 65 Blood Pressure Position Sitting Pulse Oximetry 97 97 Oxygen Delivery Method Room Air Room Air Sepsis Recent Fever Within 48 Hours No Sepsis New/Unexplained Change in Mental Status No Sepsis Action Taken by Nursing No Action Required 02/26/22 17:06 02/26/22 17:30 02/26/22 18:00 Temperature Temperature Source Pulse Rate 58 L 49 L Pulse Rate [Apical] Respiratory Rate 15 13 Respiratory Effort / Characteristics Respiratory Depth Respiratory Pattern Blood Pressure 111/83 Blood Pressure [Left Arm] Blood Pressure Mean 92 Blood Pressure Mean [Left Arm] Blood Pressure Position Pulse Oximetry Oxygen Delivery Method Sepsis Recent Fever Within 48 Hours Sepsis New/Unexplained Change in Mental Status Sepsis Action Taken by Nursing 02/26/22 18:00 02/26/22 18:30 Temperature Temperature Source Pulse Rate 51 L 46 L Pulse Rate [Apical] Respiratory Rate 17 15 Respiratory Effort / Characteristics Respiratory Depth Respiratory Pattern Blood Pressure Blood Pressure [Left Arm] Blood Pressure Mean Blood Pressure Mean [Left Arm] Blood Pressure Position Pulse Oximetry Oxygen Delivery Method Sepsis Recent Fever Within 48 Hours Sepsis New/Unexplained Change in Mental Status Sepsis Action Taken by Usp Medications Current Medication List: was personally reviewed by me Laboratory Data Attestation: I reviewed the patient's lab results. Result diagrams: 02/26/22 14:29 02/26/22 14:29 Lab Results 02/26/22 02/26/22 02/26/22 Range/Units 14:29 14:29 14:29 WBC 13.92 H (4.8-10.8) K/ul RBC 5.27 H (3.93-5.22) M/uL Hgb 16.2 H (12.0-16.0) g/dl Hct 46.9 H (34.1-44.9) % MCV 89.0 (80.0-100.0) fL MCH 30.7 (25.0-34.0) pg MCHC 34.5 (32.0-36.0) g/dL RDW Std Deviation 43.8 (36.4-46.3) fL RDW Coeff of Roro 13.3 (11.5-14.5) % Plt Count 246 (130-400) K/uL MPV 10.7 (9.4-12.3) fL Immature Gran % (Auto) 0.2 % Neut % (Auto) 79.0 % Lymph % (Auto) 14.7 % Ada % (Auto) 5.2 % Eos % (Auto) 0.5 % Baso % (Auto) 0.4 % Neut # (Auto) 10.99 H (1.4-6.5) K/uL Lymph # (Auto) 2.04 (1.2-3.4) K/uL Ada # (Auto) 0.73 (0.24-0.82) K/uL Eos # (Auto) 0.07 (0-0.50) K/uL Baso # (Auto) 0.06 (0-0.2) K/uL Immature Gran # (Auto) 0.03 H (0.00-0.02) K/uL Sodium 138 (136-145) mmol/L Potassium 3.7 (3.5-5.1) mmol/L Chloride 108 H (98-107) mmol/L Carbon Dioxide 23 (21-32) mmol/L Anion Gap 7 (3-11) BUN 18 (6-23) mg/dl Creatinine 1.76 H (0.6-1.2) mg/dl Est Cr Clr Drug Dosing 50.6 ml/min Est GFR ( Amer) 38.4 ml/min Est GFR (Non-Af Amer) 33.1 ml/min BUN/Creatinine Ratio 10.2 (10-20) Glucose 111 H (70-99(Fasting)) mg/dl Calcium 10.4 H (8.5-10.1) mg/dl Total Bilirubin 0.6 (0.2-1.0) mg/dl AST 14 (13-39) U/L ALT 7 (7-52) U/L Alkaline Phosphatase 115 H (34-104) U/L Total Protein 7.4 (6.0-8.3) gm/dl Albumin 4.2 (3.4-5.0) gm/dl Globulin 3.2 (2.5-4.0) gm/dl Albumin/Globulin Ratio 1.3 (0.9-2) Lipase 18 (11-82) U/L Urine Color Yellow Urine Appearance Cloudy A (Clear) Urine pH 6.0 (4.5-7.5) Ur Specific [place] 1.015 (1.000-1.030) Urine Protein Negative (Negative) Urine Glucose (UA) Negative (Negative) Urine Ketones Negative (Negative) Urine Blood 2+ H (Negative) Urine Nitrite Negative (Negative) Urine Bilirubin Negative (Negative) Urine Urobilinogen Negative (Negative) Ur Leukocyte Esterase Negative (Negative) Urine WBC (Auto) 1-5 (0-5) /hpf Urine RBC (Auto) 5-10 H (0-4) /hpf U Hyaline Cast (Auto) 1-5 (0-5) /lpf U Epithel Cells (Auto) >30 H (0-5) /lpf Urine Bacteria (Auto) 1+ H (Negative) SARS-CoV-2 (PCR) (Negative) 02/26/22 Range/Units 15:50 WBC (4.8-10.8) K/ul RBC (3.93-5.22) M/uL Hgb (12.0-16.0) g/dl Hct (34.1-44.9) % MCV (80.0-100.0) fL MCH (25.0-34.0) pg MCHC (32.0-36.0) g/dL RDW Std Deviation (36.4-46.3) fL RDW Coeff of Roro (11.5-14.5) % Plt Count (130-400) K/uL MPV (9.4-12.3) fL Immature Gran % (Auto) % Neut % (Auto) % Lymph % (Auto) % Ada % (Auto) % Eos % (Auto) % Baso % (Auto) % Neut # (Auto) (1.4-6.5) K/uL Lymph # (Auto) (1.2-3.4) K/uL Ada # (Auto) (0.24-0.82) K/uL Eos # (Auto) (0-0.50) K/uL Baso # (Auto) (0-0.2) K/uL Immature Gran # (Auto) (0.00-0.02) K/uL Sodium (136-145) mmol/L Potassium (3.5-5.1) mmol/L Chloride (98-107) mmol/L Carbon Dioxide (21-32) mmol/L Anion Gap (3-11) BUN (6-23) mg/dl Creatinine (0.6-1.2) mg/dl Est Cr Clr Drug Dosing ml/min Est GFR ( Amer) ml/min Est GFR (Non-Af Amer) ml/min BUN/Creatinine Ratio (10-20) Glucose (70-99(Fasting)) mg/dl Calcium (8.5-10.1) mg/dl Total Bilirubin (0.2-1.0) mg/dl AST (13-39) U/L ALT (7-52) U/L Alkaline Phosphatase (34-104) U/L Total Protein (6.0-8.3) gm/dl Albumin (3.4-5.0) gm/dl Globulin (2.5-4.0) gm/dl Albumin/Globulin Ratio (0.9-2) Lipase (11-82) U/L Urine Color Urine Appearance (Clear) Urine pH (4.5-7.5) Ur Specific [place] (1.000-1.030) Urine Protein (Negative) Urine Glucose (UA) (Negative) Urine Ketones (Negative) Urine Blood (Negative) Urine Nitrite (Negative) Urine Bilirubin (Negative) Urine Urobilinogen (Negative) Ur Leukocyte Esterase (Negative) Urine WBC (Auto) (0-5) /hpf Urine RBC (Auto) (0-4) /hpf U Hyaline Cast (Auto) (0-5) /lpf U Epithel Cells (Auto) (0-5) /lpf Urine Bacteria (Auto) (Negative) SARS-CoV-2 (PCR) NEGATIVE (Negative) Administered Medications Discontinued Medications Acetaminophen (Acetaminophen 1000 Mg/100 Ml Iv) 1,000 mg IV NOW STA Stop: 02/26/22 15:15 Last Admin: 02/26/22 15:29 Dose: 1,000 mg Documented By: HS Sodium Chloride (Nss 1000ml) 1,000 mls @ 999 mls/hr IV .Q1H1M ONE Stop: 02/26/22 15:52 Last Infusion: 02/26/22 16:11 Dose: 0 mls/hr Documented By: Admin: 02/26/22 15:10 Dose: 999 mls/hr Documented By: HS Promethazine HCl (Phenergan) 6.25 mg in 50.25 mls @ 201 mls/hr IV NOW STA Stop: 02/26/22 15:28 Last Infusion: 02/26/22 16:01 Dose: 0 mls/hr Documented By: Admin: 02/26/22 15:46 Dose: 201 mls/hr Documented By: HS Ceftriaxone Sodium (Rocephin) 2,000 mg in 70 mls @ 140 mls/hr IV NOW STA Stop: 02/26/22 17:20 Last Admin: 02/26/22 17:00 Dose: 140 mls/hr Documented By: HS Sodium Chloride (Nss 1000ml) 500 mls @ 999 mls/hr IV .Q31M ONE Stop: 02/26/22 17:24 Last Admin: 02/26/22 17:01 Dose: 999 mls/hr Documented By: HS Morphine Sulfate (Morphine Sulfate 4 Mg/Ml 1 Ml Carp\\Vial) 4 mg IV NOW STA Stop: 02/26/22 15:15 Last Admin: 02/26/22 15:29 Dose: 4 mg Documented By: HS Morphine Sulfate (Morphine Sulfate 4 Mg/Ml 1 Ml Carp\\Vial) 4 mg IV NOW STA Stop: 02/26/22 16:55 Last Admin: 02/26/22 17:00 Dose: 4 mg Documented By: HS Ondansetron HCl (Ondansetron Inj 2 Mg/Ml 2 Ml Vial) 4 mg IV NOW STA Stop: 02/26/22 15:15 Last Admin: 02/26/22 15:29 Dose: 4 mg Documented By: Imaging Data Radiologist's Impression: Abdomen/Pelvis CT 02/26/22 14:[address] WITHOUT CONTRAST CT DOSE: 996.33 mGy.cm HISTORY: Acute bilateral flank pain flank pain TECHNIQUE: Multiaxial CT images of the abdomen and pelvis were performed without contrast. A dose lowering technique was utilized adhering to the principles of ALARA. COMPARISON STUDY: CT 03/06/2021 FINDINGS: Subsegmental bibasilar atelectasis. No pneumatosis or pneumoperitoneum. The unenhanced spleen, pancreas and liver appear unremarkable. Cholecystectomy. Bilateral adrenal gland adenomata redemonstrated measuring up to 2 cm bilaterally. Mild nonspecific bilateral perinephric and periureteral stranding. No renal or ureteral calculi or hydronephrosis. Partial distention of the urinary bladder. Cholecystectomy. Pelvic basin phleboliths. No abdominal aortic aneurysm or lymphadenopathy. No bowel obstruction or bowel wall thickening. Prior appendectomy. No ascites or mesenteric inflammation. Unremarkable soft tissues. No acute fracture identified. IMPRESSION: 1. No bowel obstruction or bowel wall thickening. 2. Mild nonspecific bilateral perinephric stranding. Correlate with urinalysis to exclude an ascending infection. 3. Cholecystectomy. ACT 112: Negative or not required by law. The above report was generated using voice recognition software. It may contain grammatical, syntax or spelling errors. Electronically signed by: Shiv Lopez M.D. 02/26/2022 3:43 PM Renal Ultrasound 02/26/22 18:40 US renal/blad retro comp HISTORY: 51 years-old Female MARY acute kidney injury COMPARISON: CT abdomen and pelvis of same day TECHNIQUE: Multiple real-time sonographic images of the kidneys and urinary bladder were obtained assessing grayscale appearance and color flow FINDINGS: The right kidney measures 12.9 x 4.4 x 4.6 cm. The left kidney measures 12.0 x 5.3 x 4.4 cm. No renal calculi or hydronephrosis. Decompressed urinary bladder. IMPRESSION: Unremarkable exam. ACT 112: Negative or not required by law. The above report was generated using voice recognition software. It may contain grammatical, syntax or spelling errors. Electronically signed by: Shiv Lopez M.D. 02/26/2022 8:55 PM Discharge Plan Visit Data Chief Complaint: Flank Pain Stated Complaint: KIDNEY PAIN - FROM A TURADOL SHOT ED Provider: Elvin Eldridge Discharge Problem: Bilateral flank pain, Vomiting, Leukocytosis, MARY (acute kidney injury) Patient Disposition: Admitted As Inpatient Condition: Fair Forms Stand Alone Forms: [facility] Prescriptions Prescriptions: No Action morphine 15 mg tablet extended release 15 mg PO BID Rx Instructions: TAKE AM, NOON, HS morphine 15 mg tablet 15 mg PO BID PRN (Reason: Breakthrough Pain) duloxetine 30 mg capsule,delayed release(DR/EC) 30 mg PO DAILY@1500 Rx Instructions: TAKE WITH 60 MG TAB TO = 90MG duloxetine 60 mg capsule,delayed release(DR/EC) 60 mg PO DAILY@1500 Rx Instructions: TAKE WITH 30 MG TAB=90 MG. ondansetron 8 mg tablet,disintegrating 8 mg translingual Q8 PRN (Reason: NAUSEA/VOMITING) promethazine 25 mg tablet 25 mg PO Q6 PRN (Reason: Nausea) polyethylene glycol 3350 [Miralax] 17 gram Powder In Packet 17 g PO DAILY PRN (Reason: Constipation) nitroglycerin 0.4 mg tablet, sublingual 0.4 mg sublingual DIRECTED PRN (Reason: Chest Pain) nicotine [Nicoderm CQ] 21 mg/24 hr patch 24 hour 1 patch transdermal DAILY Qty: 28 0RF Label Comments: Pt states she only uses this medication when she is in the ED. She cannot get the medication filled at the pharmacy. (10-26-21) levothyroxine 125 mcg tablet See Rx Instructions .ROUTE .COMPLEX Rx Instructions: take 2 tablets orally daily 4 days a week (Mon, , mon, ) take 3 tablets orally daily 3 days a week ( mon, mon, mon) topiramate 100 mg tablet 150 mg PO HS Rx Instructions: 1 & 1/2 tablet dose clopidogrel 75 mg tablet 75 mg PO HS baclofen 5 mg Tablet 5 mg PO BID PRN (Reason: Muscle Spasm) aspirin 81 mg PO DAILY Referrals Referrals: Dajuan Bell, [Primary Care Provider] -
--- NOTE | 2022-02-26 15:45 | CT Scan Report ---
ABDOMEN AND PELVIS CT WITHOUT CONTRAST CT DOSE: 996.33 mGy.cm HISTORY: Acute bilateral flank pain flank pain TECHNIQUE: Multiaxial CT images of the abdomen and pelvis were performed without contrast. A dose lo wering technique was utilized adhering to the principles of ALARA. COMPARISON STUDY: CT 03/06/2021 FINDINGS: Subsegmental bibasilar atelectasis. No pneumatosis or pneumoperitoneum. The unenhanced spleen, pancre as and liver appear unremarkable. Cholecystectomy. Bilateral adrenal gland adenomata redemonstrated m easuring up to 2 cm bilaterally. Mild nonspecific bilateral perinephric and periureteral stranding. N o renal or ureteral calculi or hydronephrosis. Partial distention of the urinary bladder. Cholecystec jennifer. Pelvic basin phleboliths. No abdominal aortic aneurysm or lymphadenopathy. No bowel obstruction or bowel wall thickening. Prior appendectomy. No ascites or mesenteric inflammat ion. Unremarkable soft tissues. No acute fracture identified. IMPRESSION: 1. No bowel obstruction or bowel wall thickening. 2. Mild nonspecific bilateral perinephric stranding. Correlate with urinalysis to exclude an ascendin g infection. 3. Cholecystectomy. ACT 112: Negative or not required by law. The above report was generated using voice recognition software. It may contain grammatical, syntax o r spelling errors. Electronically signed by: Shiv Lopez M.D. 02/26/2022 3:43 PM
[2022-02-26] MEDS ORDERED: cefTRIAXone SODIUM 2,000 MG/70 ML BAG IV STA (16:51)
[2022-02-26] MEDS ORDERED: SODIUM CHLORIDE 0.9% 1000ML 500 ML IV ONE (16:54)
--- NOTE | 2022-02-26 17:24 | History & Physical Report ---
Date of Service February 26, 2022 Assessment & Plan (1) UTI (urinary tract infection): Plan: Possible Acute pyelonephritis/UTI CT ABD:No bowel obstruction or bowel wall thickening. Mild nonspecific bilateral perinephric stranding. Correlate with urinalysis to exclude an ascending infection. Cholecystectomy. No obvious ureteral stone noted Ordered blood, urine cultures Empirically started on Rocephin Urology consulted MARY: Decreased urine output Likely due to medications Received Toradol at PCPs office on 02/25 Bladder scan as needed Continue IV fluids Avoid nephrotoxic agents as able Consider nephrology evaluation if needed Renal ultrasound ordered Hypotension Bradycardia Usually hypotensive, bradycardic at baseline as per patient Monitor for any arrhythmias Blood pressure improved with IV fluids Not on any antihypertensives DM Type II: Diet controlled Update HbA1c Continue Insulin while hospitalized Monitor BGs H/O Migraine Continue home medications Fibromyalgia Irritable bowel syndrome Lumbar disc disease chronic pain syndrome opiate dependence disorder On Cymbalta, chronic narcotics Follows with pain clinic as outpatient Tobacco use disorder Counseled to quit Nicotine patch Hypothyroidism Hyperparathyroidism Follows with endocrinology at [facility] Continue levothyroxine Update TSH Plan for surgery as per patient DVT Px Heparin SQ CODE STATUS Full code History of Present Illness Chief Complaint: Flank Pain, Decreased urine Output Primary Care Provider: Dajuan Bell DO Patient is a 51-year-old female with history of migraine, fibromyalgia, irritable bowel syndrome, lumbar disc disease, tobacco use disorder, chronic pain syndrome, hypothyroidism, opiate dependence disorder, generalized anxiety disorder, hyperparathyroidism, diabetes mellitus and other medical problems presents with history of bilateral flank pain and decreased urine output. Patient states having migraine headache since about 1 week duration for which she received a Toradol shot yesterday while at PCPs office. After the Toradol shot, patient started to notice generalized swelling and was having bilateral flank pain. She also noticed decreased urine output. Patient states having sharp bilateral flank pain radiating to left and right lower quadrant, no aggravating relieving factors noted. She believes that her pain is unusual from her baseline. Reports associated nausea, vomiting yesterday and had an episode today as well. Back pain worsens with movement. She states that she could not lie flat secondary to the pain. Reports chills but no fever. Also reports having some dizziness. Had 2 loose bowel movements this morning as well. Denies any other NSAID use over the counter. Denies any history of chest pain, dyspnea, palpitations, cough, change in vision, blood in stools, dysuria, hematuria, recent change in medications Allergies Allergy/AdvReac Type Severity Reaction Status Date / Time gabapentin Allergy Severe anaphylaxis Verified 02/26/22 16:03 Iodinated Contrast Media Allergy Severe heart Verified 02/26/22 16:03 races,rash,pain in head tramadol Allergy Severe ANAPHYLAXIS Verified 02/26/22 16:03 chlorpheniramine Allergy Intermediate SHORTNESS Verified 02/26/22 16:03 OF BREATH guaifenesin Allergy Intermediate SHORTNESS Verified 02/26/22 16:03 OF BREATH Sulfa (Sulfonamide Allergy Unknown Unknown Verified 02/26/22 16:03 Antibiotics) aspirin AdvReac Intermediate TINNITUS Verified 02/26/22 16:03 Corticosteroids AdvReac Intermediate Agitated Verified 02/26/22 16:03 (Glucocorticoids) metoclopramide AdvReac Intermediate anxiety Verified 02/26/22 16:03 SYMPATHOMIMETICS Allergy Unknown Unknown Uncoded 02/26/22 16:03 Home Medications Medication Instructions Recorded Confirmed Type duloxetine 30 mg capsule,delayed 30 mg PO DAILY@1500 09/02/21 02/26/22 History release duloxetine 60 mg capsule,delayed 60 mg PO DAILY@1500 09/02/21 02/26/22 History release morphine 15 mg immediate release 15 mg PO BID PRN Breakthrough Pain 09/02/21 02/26/22 History tablet morphine 15 mg tablet,extended 15 mg PO BID 09/02/21 02/26/22 History release nitroglycerin 0.4 mg sublingual 0.4 mg sublingual DIRECTED PRN 09/02/21 02/26/22 History tablet Chest Pain ondansetron 8 mg disintegrating 8 mg translingual Q8 PRN 09/02/21 02/26/22 History tablet NAUSEA/VOMITING polyethylene glycol 3350 17 gram 17 g PO DAILY PRN Constipation 09/02/21 02/26/22 History oral powder packet (Miralax) promethazine 25 mg tablet 25 mg PO Q6 PRN Nausea 09/02/21 02/26/22 History nicotine 21 mg/24 hr daily 1 patch transdermal DAILY #28 ea 09/04/21 02/26/22 Rx transdermal patch (Nicoderm CQ) clopidogrel 75 mg tablet 75 mg PO HS 09/28/21 02/26/22 History levothyroxine 125 mcg tablet See Rx Instructions .Route .COMPLEX 09/28/21 02/26/22 History topiramate 100 mg tablet 150 mg PO HS 09/28/21 02/26/22 History aspirin 81 mg PO DAILY 02/26/22 02/26/22 History baclofen 5 mg tablet 5 mg PO BID PRN Muscle Spasm 02/26/22 02/26/22 History Past Med/Surg History Medical History Acute exacerbation of chronic low back pain Anxiety Atelectasis Back pain Bulging lumbar disc Small broad-based posterior disc bulge with a small right paracentral focal disc protrusion Cardiomyopathy 2014 - thought to be stress induced, reported normal dobutamine stress and echo after Chronic back pain Chronic pain syndrome Depression Fibromyalgia H/O traumatic brain injury Hypokalemia Hypothyroidism (Unknown) IBS (irritable bowel syndrome) Intractable back pain Intractable nausea and vomiting Migraines Opiate dependence Tobacco abuse Surgical History Bilateral tubal ligation (Unknown) section (Unknown) H/O colonoscopy "2006 path normal" H/O cystoscopy H/O esophagogastroduodenoscopy "2006 path normal" History of knee surgery Hx of appendectomy Hx of cholecystectomy Hx of hysterectomy S/P lymph node biopsy "deep cervical inflammatory node 2007" Family History Other Diabetes Hypertension Thyroid disorder Social History Smoking Status: Current every day smoker Tobacco Type: Cigarettes Cigarettes Per Day: 20; Second Hand Exposure: Yes; Hx Alcohol Use: No Hx Substance Use: No Preferred Language: Estonian Communication Ability: Effective Visual Impairment: Partially Limited Meter Tester Primary Required: No Beliefs That Will Affect Care: None marital status: Current Living Situation: Spouse and Family Current Living Situation Comment: grandson Feels Safe at Home: Yes Assistive Devices: None Review of Systems Review of Systems: All systems reviewed & are unremarkable except as noted in Subjective Physical Exam Physical Exam: Physical Exam: Vitals signs as noted above General Appearance:Obese, no apparent distress Head: normocephalic, Atraumatic Eyes: normal inspection, EOMI Neck: supple, Trachea midline Respiratory/Chest: Normal breath sounds, CTA, No accessory muscle use Cardiovascular: S1, S2, No murmur Abdomen/GI:Soft, Non tender, Bowel sounds present, B/L flank tender Extremities/Musculoskeletal:normal inspection, Trace edema Neurologic/Psych:AAOX3, grossly no focal neurological deficits Skin: normal color, warm Results & Data Results & Data ([facility]) Vital Signs (Past 12 Hours) Vital Signs Temp Pulse Pulse Resp BP BP Pulse Ox 02/26/22 17:03 62 16 77/60 L 97 02/26/22 14:19 37.0 C 75 20 161/114 H 97 O2 Del Method 02/26/22 17:03 Room Air 02/26/22 14:19 Room Air Laboratory Results Short CBC 02/26/22 Range/Units 14:29 WBC 13.92 H (4.8-10.8) K/ul Hgb 16.2 H (12.0-16.0) g/dl Hct 46.9 H (34.1-44.9) % Plt Count 246 (130-400) K/uL BMP 02/26/22 14:29 Sodium 138 Potassium 3.7 Chloride 108 H Carbon Dioxide 23 BUN 18 Creatinine 1.76 H Glucose 111 H Calcium 10.4 H Liver Function 02/26/22 Range/Units 14:29 Total Bilirubin 0.6 (0.2-1.0) mg/dl AST 14 (13-39) U/L ALT 7 (7-52) U/L Alkaline Phosphatase 115 H (34-104) U/L Albumin 4.2 (3.4-5.0) gm/dl Urine 02/26/22 Range/Units 14:29 Urine Color Yellow Urine Appearance Cloudy A (Clear) Urine pH 6.0 (4.5-7.5) Ur Specific [place] 1.015 (1.000-1.030) Urine Protein Negative (Negative) Urine Glucose (UA) Negative (Negative) Diagnostic Findings CT ABD: 1. No bowel obstruction or bowel wall thickening. 2. Mild nonspecific bilateral perinephric stranding. Correlate with urinalysis to exclude an ascending infection. 3. Cholecystectomy. ECG Additional Comments: EKG pending
[2022-02-26] MEDS ORDERED: ONDANSETRON INJ 2 MG/ML 2 ML VIAL IV PRN (18:31)
--- NOTE | 2022-02-26 20:56 | Ultrasound Report ---
US renal/blad retro comp HISTORY: 51 years-old Female MARY acute kidney injury COMPARISON: CT abdomen and pelvis of same day TECHNIQUE: Multiple real-time sonographic images of the kidneys and urinary bladder were obtained ass essing grayscale appearance and color flow FINDINGS: The right kidney measures 12.9 x 4.4 x 4.6 cm. The left kidney measures 12.0 x 5.3 x 4.4 cm. No renal calculi or hydronephrosis. Decompressed urinary bladder. IMPRESSION: Unremarkable exam. ACT 112: Negative or not required by law. The above report was generated using voice recognition software. It may contain grammatical, syntax o r spelling errors. Electronically signed by: Shiv Lopez M.D. 02/26/2022 8:55 PM
[2022-02-26] MEDS ORDERED: GLUCAGON FOR INJ 1 MG VIAL SQ PRN (21:32)
[2022-02-26] MEDS ORDERED: POLYETHYLENE (MIRALAX) 17 GM PACK PO PRN ×2 (21:32)
[2022-02-26] MEDS ORDERED: CARBOHYDRATES FOR HYPOGLYCEMIA PO PRN (21:32)
[2022-02-26] MEDS ORDERED: GLUCOSE 10 TAB/TUBE PO PRN (21:32)
[2022-02-26] MEDS ORDERED: DEXTROSE 50% 50 ML SYRINGE IV PRN (21:32)
[2022-02-26] MEDS ORDERED: GLUCOSE 40% GEL 15 GM TUBE PO PRN (21:32)
[2022-02-26] MEDS ORDERED: BACLOFEN 10 MG TAB PO PRN (21:32)
[2022-02-26] MEDS: TOPIRAMATE 50 MG TAB PO SCH (22:18)
[2022-02-26] MEDS: SODIUM CHLORIDE 0.9% 1000ML 1,000 ML IV SCH (22:18)
[2022-02-26] MEDS: NICOTINE 21 MG/24 HR TDSY TD SCH (22:18)
[2022-02-26] MEDS: CLOPIDOGREL BISULFATE 75 MG TAB PO SCH (22:19)
[2022-02-26] MEDS: INSULIN ASPART PER UNIT SC SCH (22:19)
[2022-02-26] MEDS: HEPARIN SOD 5,000 UNIT/0.5 ML VIAL SQ SCH (22:20)
[2022-02-26] MEDS: MoRPHine SULFATE 2 MG/ML CARP IV PRN (22:20)
[2022-02-26] MEDS: MoRPHine SULFATE CR 15 MG TABCR PO SCH (22:20)
[2022-02-27] MEDS: MoRPHine SULFATE 2 MG/ML CARP IV PRN ×3 (02:15→11:24)
[2022-02-27] MEDS: SODIUM CHLORIDE 0.9% 1000ML 1,000 ML IV SCH ×3 (06:13→23:11)
[2022-02-27] MEDS: HEPARIN SOD 5,000 UNIT/0.5 ML VIAL SQ SCH ×3 (06:13→21:22)
[2022-02-27] MEDS ORDERED: LEVOTHYROXINE SODIUM 125 MCG TABLET PO SCH (06:30)
[2022-02-27 07:46] LABS: Hematocrit (blood only) 40.2 % (34.1-44.9); Hemoglobin 13.5 g/dl (12.0-16.0); Mean Corpuscular Hemoglobin 30.5 pg (25.0-34.0); Mean Corpuscular Hgb Conc 33.6 g/dL (32.0-36.0); Mean Corpuscular Volume 90.7 fL (80.0-100.0); Mean Platelet Volume 11.1 fL (9.4-12.3); Platelet Count 175 K/uL (130-400); RDW Coefficient of Variation 13.5 % (11.5-14.5); RDW Standard Deviation 45.3 fL (36.4-46.3); Red Blood Count 4.43 M/uL (3.93-5.22); White Blood Count 10.44 K/ul (4.8-10.8)
[2022-02-27] MEDS: INSULIN ASPART PER UNIT SC SCH ×4 (08:11→21:22)
[2022-02-27 08:17] LABS: BUN Creatinine Ratio 11.6 (10-20); Calcium 9.2 mg/dl (8.5-10.1); Creatinine Clr Calc Pharmacy 58.2 ml/min; Est GFR (African American) 44.8 ml/min; Est GFR (Non-African American) 38.6 ml/min; Magnesium 2.1 mg/dl (1.7-2.4); Potassium 3.7 mmol/L (3.5-5.1)
[2022-02-27] MEDS: NICOTINE 21 MG/24 HR TDSY TD SCH (08:25)
[2022-02-27] MEDS: ASPIRIN 81 MG ECTAB PO SCH (08:25)
[2022-02-27] MEDS: MoRPHine SULFATE CR 15 MG TABCR PO SCH ×2 (08:27→20:08)
[2022-02-27 08:32] LABS: Thyroid Stimulating Hormone 11.477 uIu/ml (0.300-4.500)
--- NOTE | 2022-02-27 09:38 | Urology Consultation ---
Date of Consultation February 27, 2022 Assessment & Plan (1) Bilateral flank pain: Bilateral flank pain would fit with the picture of pyelonephritis. There is no evidence for obstruction and I think she should respond well to treatment with ceftriaxone. No need for urologic intervention with stent placement at this time. Urinalysis is not overtly suspicious for infection, however will be reasonable to follow-up on blood and urine cultures treat based on these. (2) MARY (acute kidney injury): No evidence for obstruction on CT scan, so her MARY is most likely prerenal in etiology. I expect her creatinine will improve with fluid resuscitation and increased p.o. intake. (3) UTI (urinary tract infection): Plan Agree with treatment with ceftriaxone, narrow antibiotics as culture data becomes available No role for urologic intervention at this time Urology will sign off, please call with any questions or concerns. History of Present Illness Reason for Consultation: Bilateral flank pain, possible pyelonephritis Attending Physician: Tavo Marks MD History of Present Illness This is a 51-year-old female with history of chronic migraines, fibromyalgia, chronic back pain who presented to the emergency department on 02/26/2022 with bilateral flank pain. She has a history of migraines and had received a Toradol shot at an outpatient facility in the preceding week. After the shot she had gradually increasing flank pain associated with nausea and vomiting. She discussed this with her outside providers who thought maybe it was a reaction to the Toradol and advised her to come to the emergency department. Work-up in the emergency department was notable for mild leukocytosis (WBC 13.92) mild erythrocytosis (hemoglobin 16.2). Creatinine was somewhat elevated at 1.76 (prior baseline close to 0.9) urinalysis demonstrated cloudy urine with 2+ blood, negative leukocyte esterase, negative nitrites, 1+ bacteria, multiple epithelial cells. A CT scan of the abdomen and pelvis was performed that independently reviewed these images. She has 2 kidneys in normal position. There is no hydronephrosis on either side and there are no stones in the kidneys or the ureters. Her bladder appears grossly normal. Radiology makes note of bilateral adrenal gland adenomas measuring up to 2 cm bilaterally. Today she reports that she is feeling okay. She denies any dysuria. There is still some ongoing low-grade back pain.Blood and urine cultures are pending and she is receiving ceftriaxone for antibiotic coverage. Allergies Allergy/AdvReac Type Severity Reaction Status Date / Time gabapentin Allergy Severe anaphylaxis Verified 02/26/22 16:03 Iodinated Contrast Media Allergy Severe heart Verified 02/26/22 16:03 races,rash,pain in head tramadol Allergy Severe ANAPHYLAXIS Verified 02/26/22 16:03 chlorpheniramine Allergy Intermediate SHORTNESS Verified 02/26/22 16:03 OF BREATH guaifenesin Allergy Intermediate SHORTNESS Verified 02/26/22 16:03 OF BREATH Sulfa (Sulfonamide Allergy Unknown Unknown Verified 02/26/22 16:03 Antibiotics) aspirin AdvReac Intermediate TINNITUS Verified 02/26/22 16:03 Corticosteroids AdvReac Intermediate Agitated Verified 02/26/22 16:03 (Glucocorticoids) metoclopramide AdvReac Intermediate anxiety Verified 02/26/22 16:03 SYMPATHOMIMETICS Allergy Unknown Unknown Uncoded 02/26/22 16:03 Home Medications Medication Instructions Recorded Confirmed Type duloxetine 30 mg capsule,delayed 30 mg PO DAILY@1500 09/02/21 02/26/22 History release duloxetine 60 mg capsule,delayed 60 mg PO DAILY@1500 09/02/21 02/26/22 History release morphine 15 mg immediate release 15 mg PO BID PRN Breakthrough Pain 09/02/21 History tablet morphine 15 mg tablet,extended 15 mg PO BID 09/02/21 02/26/22 History release nitroglycerin 0.4 mg sublingual 0.4 mg sublingual DIRECTED PRN 09/02/21 02/26/22 History tablet Chest Pain ondansetron 8 mg disintegrating 8 mg translingual Q8 PRN 09/02/21 02/26/22 History tablet NAUSEA/VOMITING polyethylene glycol 3350 17 gram 17 g PO DAILY PRN Constipation 09/02/21 02/26/22 History oral powder packet (Miralax) promethazine 25 mg tablet 25 mg PO Q6 PRN Nausea 09/02/21 02/26/22 History nicotine 21 mg/24 hr daily 1 patch transdermal DAILY #28 ea 09/04/21 02/26/22 Rx transdermal patch (Nicoderm CQ) clopidogrel 75 mg tablet 75 mg PO HS 09/28/21 02/26/22 History levothyroxine 125 mcg tablet See Rx Instructions .Route .COMPLEX 09/28/21 02/26/22 History topiramate 100 mg tablet 150 mg PO HS 09/28/21 02/26/22 History aspirin 81 mg PO DAILY 02/26/22 02/26/22 History baclofen 5 mg tablet 5 mg PO BID PRN Muscle Spasm 02/26/22 02/26/22 History Patient History Medical History Acute exacerbation of chronic low back pain Anxiety Atelectasis Back pain Bulging lumbar disc Small broad-based posterior disc bulge with a small right paracentral focal disc protrusion Cardiomyopathy 2014 - thought to be stress induced, reported normal dobutamine stress and echo after Chronic back pain Chronic pain syndrome Depression Fibromyalgia H/O traumatic brain injury Hypokalemia Hypothyroidism (Unknown) IBS (irritable bowel syndrome) Intractable back pain Intractable nausea and vomiting Migraines Opiate dependence Tobacco abuse Surgical History Bilateral tubal ligation (Unknown) section (Unknown) H/O colonoscopy "2006 path normal" H/O cystoscopy H/O esophagogastroduodenoscopy "2006 path normal" History of knee surgery Hx of appendectomy Hx of cholecystectomy Hx of hysterectomy S/P lymph node biopsy "deep cervical inflammatory node 2007" Family History Other Diabetes Hypertension Thyroid disorder Social History Smoking Status: Current every day smoker Tobacco Type: Cigarettes Cigarettes Per Day: 15; Second Hand Exposure: Yes; Do You Dip or Chew Tobacco: No; Tobacco Cessation Education Requested by Patient: No Hx Alcohol Use: No Hx Substance Use: No Preferred Language: Romansh Communication Ability: Effective Visual Impairment: Partially Limited [employer] Crewmember Required: No Beliefs That Will Affect Care: None marital status: Current Living Situation: Spouse Current Living Situation Comment: with in a house Other Information That Helps Us Care for You: No Feels Safe at Home: Yes Safety Concerns: Feels Safe At This Time Assistive Devices: None Review of Systems Review of Systems: 14 point review of systems negative except for otherwise indicated. Physical Exam Constitutional: well developed and well nourished; no acute distress Eyes: + anicteric sclerae; pupils not irregular Respiratory: normal respiratory effort; no respiratory distress, does not use accessory muscles and no cough Cardiovascular: well perfused Gastrointestinal (Abdomen): Inspection/Auscultation: abdomen normal to inspection; abdomen not distended Musculoskeletal: Extremities: extremities normal to inspection Skin: normal turgor; no rashes and no lesions Neurologic: moves all extremities and awake Psychiatric: Orientation: alert and oriented x 3 Results & Data ([facility]) Vital Signs (Past 12 Hours) Vital Signs Temp Pulse Pulse Pulse Resp BP BP 02/27/22 07:26 61 02/27/22 07:21 36.9 C 64 18 123/79 02/27/22 03:00 36.5 C 58 L 20 126/74 02/26/22 22:15 51 L 02/26/22 21:42 47 L 21 134/87 Pulse Ox O2 Del Method 02/27/22 07:26 02/27/22 07:21 94 Room Air 02/27/22 03:00 93 Room Air 02/26/22 22:15 02/26/22 21:42 99 Room Air PG Care Time/CCT Total # of Minutes Spent Total Time Spent with Patient: Total time spent is greater than 50% in coordination of care (as documented) at patient's floor/unit and/or counseling patient: Coding Level of Care Code 70551 Inpt Consult Level 3 Diagnoses Bilateral flank pain R10.9 MARY (acute kidney injury) N17.9 UTI (urinary tract infection) N39.0
[2022-02-27 14:51] LABS: T4 Free Thyroxine 0.72 ng/dl (0.61-1.60)
[2022-02-27] MEDS ORDERED: DULoxetine HCL 60 MG CAP PO SCH (15:00)
[2022-02-27] MEDS ORDERED: DULoxetine HCL 30 MG CAP PO SCH (15:00)
[2022-02-27] MEDS ORDERED: MoRPHine SULFATE IR 15 MG TAB (IMMEDIATE RELEASE) PO PRN (15:12)
--- NOTE | 2022-02-27 15:12 | Hospitalist Progress Note ---
Date of Service February 27, 2022 Assessment & Plan (1) UTI (urinary tract infection): Plan: Possible Acute pyelonephritis/UTI CT ABD:No bowel obstruction or bowel wall thickening. Mild nonspecific bilateral perinephric stranding. Correlate with urinalysis to exclude an ascending infection. Cholecystectomy. No obvious ureteral stone noted Urine culture noncontributory Blood culture pending Continue Rocephin for now Appreciate urology input Leukocytosis trending down MARY: Presented with decreased urine output Likely due to medications Received Toradol at PCPs office on 02/25 Renal ultrasound:Unremarkable exam. Bladder scan as needed Continue IV fluids Avoid nephrotoxic agents as able Consider nephrology evaluation if needed Cr: 1.76>> 1.55 Hypotension Bradycardia Usually hypotensive, bradycardic at baseline as per patient Monitor for any arrhythmias Blood pressure improved with IV fluids Not on any antihypertensives DM Type II: Diet controlled Update HbA1c Continue Insulin while hospitalized Monitor BGs H/O Migraine Continue home medications Fibromyalgia Irritable bowel syndrome Lumbar disc disease chronic pain syndrome opiate dependence disorder On Cymbalta, chronic narcotics Follows with pain clinic as outpatient Tobacco use disorder Counseled to quit Nicotine patch Hypothyroidism Hyperparathyroidism Follows with endocrinology at [facility] Continue levothyroxine Elevated TSH, normal free T4 Plan for surgery as per patient Needs follow-up with endocrinology upon discharge DVT Px Heparin SQ CODE STATUS Full code Admission and Anticipated Discharge Date Admission Date: February 26, 2022 Subjective Patient is seen and examined at bedside Flank pain resolved Nausea, vomiting, diarrhea resolved Has chronic low back pain Denies any chest pain, dyspnea, dizziness Offers no other complaints Renal function slowly improving Review of Systems Review of Systems: All systems reviewed & are unremarkable except as noted in Subjective Physical Exam Physical Exam: Physical Exam: Vitals signs as noted above General Appearance:Obese, no apparent distress Head: normocephalic, Atraumatic Eyes: normal inspection, EOMI Neck: supple, Trachea midline Respiratory/Chest: Normal breath sounds, CTA, No accessory muscle use Cardiovascular: S1, S2, No murmur Abdomen/GI:Soft, Non tender, Bowel sounds present, B/L flank tender Extremities/Musculoskeletal:normal inspection, Trace edema Neurologic/Psych:AAOX3, grossly no focal neurological deficits Skin: normal color, warm Results & Data Results & Data ([facility]) Vital Signs (Past 12 Hours) Vital Signs Temp Pulse Pulse Resp BP Pulse Ox O2 Del Method 02/27/22 11:17 37.0 C 64 20 153/88 H 96 Room Air 02/27/22 07:26 61 02/27/22 07:21 36.9 C 64 18 123/79 94 Room Air Laboratory Results Short CBC 02/27/22 Range/Units 06:47 WBC 10.44 (4.8-10.8) K/ul Hgb 13.5 (12.0-16.0) g/dl Hct 40.2 (34.1-44.9) % Plt Count 175 (130-400) K/uL BMP 02/26/22 02/27/22 14:29 06:47 Sodium 138 141 Potassium 3.7 3.7 Chloride 108 H 114 H Carbon Dioxide 23 25 BUN 18 18 Creatinine 1.76 H 1.55 H Glucose 111 H 95 Calcium 10.4 H 9.2 Liver Function 02/26/22 Range/Units 14:29 Total Bilirubin 0.6 (0.2-1.0) mg/dl AST 14 (13-39) U/L ALT 7 (7-52) U/L Alkaline Phosphatase 115 H (34-104) U/L Albumin 4.2 (3.4-5.0) gm/dl
[2022-02-27] MEDS ORDERED: cefTRIAXone SODIUM 2,000 MG in DEXTROSE 5% 50 ML IV SCH (16:00)
--- NOTE | 2022-02-27 19:32 | Electrocardiogram Report ---
Test Reason : Blood Pressure : / mmHG Vent. Rate : 043 BPM Atrial Rate : 043 BPM P-R Int : 170 ms QRS Dur : 074 ms QT Int : 456 ms P-R-T Axes : 034 002 021 degrees QTc Int : 385 ms Marked sinus bradycardia Low voltage QRS Abnormal ECG When compared with ECG of 04-DEC-2021 16:21, No significant change was found Confirmed by Vinh Waters ([id number]) on 02/27/2022 7:32:24 PM Referred By: REFERRED SELF Confirmed By:Vinh Waters
[2022-02-27] MEDS: CLOPIDOGREL BISULFATE 75 MG TAB PO SCH (20:08)
[2022-02-27] MEDS: TOPIRAMATE 50 MG TAB PO SCH (20:10)
[2022-02-28] MEDS: HEPARIN SOD 5,000 UNIT/0.5 ML VIAL SQ SCH (05:44)
[2022-02-28 06:24] LABS: Hemoglobin 12.8 g/dl (12.0-16.0); Mean Corpuscular Hemoglobin 30.3 pg (25.0-34.0); Mean Corpuscular Hgb Conc 32.8 g/dL (32.0-36.0); Mean Corpuscular Volume 92.4 fL (80.0-100.0); Mean Platelet Volume 11.1 fL (9.4-12.3); Platelet Count 176 K/uL (130-400); RDW Coefficient of Variation 13.2 % (11.5-14.5); RDW Standard Deviation 44.9 fL (36.4-46.3); Red Blood Count 4.22 M/uL (3.93-5.22); White Blood Count 6.55 K/ul (4.8-10.8)
[2022-02-28] MEDS ORDERED: LEVOTHYROXINE SODIUM 125 MCG TABLET PO SCH (06:30)
[2022-02-28 07:43] LABS: BUN Creatinine Ratio 7.8 (10-20); Creatinine Clr Calc Pharmacy 70.5 ml/min; Est GFR (African American) 56.4 ml/min; Est GFR (Non-African American) 48.7 ml/min; Potassium 3.9 mmol/L (3.5-5.1)
[2022-02-28 08:18] LABS: Estimated Average Glucose 123 mg/dl; Hemoglobin A1C 5.9 % (4.5-5.6)
[2022-02-28] MEDS: INSULIN ASPART PER UNIT SC SCH (09:42)
[2022-02-28] MEDS: NICOTINE 21 MG/24 HR TDSY TD SCH (09:45)
[2022-02-28] MEDS: ASPIRIN 81 MG ECTAB PO SCH (09:45)
[2022-02-28] MEDS: MoRPHine SULFATE CR 15 MG TABCR PO SCH (09:45)
--- NOTE | 2022-02-28 10:50 | Hospitalist Progress Note ---
Date of Service February 28, 2022 Assessment & Plan (1) UTI (urinary tract infection): Plan: Possible Acute pyelonephritis/UTI CT ABD:No bowel obstruction or bowel wall thickening. Mild nonspecific bilateral perinephric stranding. Correlate with urinalysis to exclude an ascending infection. Cholecystectomy. No obvious ureteral stone noted Urine culture noncontributory Blood culture : No growth to date Continue Rocephin >>Transition to Cefdinir Appreciate urology input Leukocytosis resolved MARY: Presented with decreased urine output Likely due to medications Received Toradol at PCPs office on 02/25 Renal ultrasound:Unremarkable exam. Bladder scan as needed Received IV fluids Avoid nephrotoxic agents as able Consider nephrology evaluation if needed Cr: 1.76>> 1.55>>1.28 Hypotension Bradycardia Usually hypotensive, bradycardic at baseline as per patient Monitor for any arrhythmias Blood pressure improved with IV fluids Not on any antihypertensives DM Type II: Diet controlled HbA1c 5.9 Continue Insulin while hospitalized Monitor BGs H/O Migraine Continue home medications Fibromyalgia Irritable bowel syndrome Lumbar disc disease chronic pain syndrome opiate dependence disorder On Cymbalta, chronic narcotics Follows with pain clinic as outpatient Tobacco use disorder Counseled to quit Nicotine patch Hypothyroidism Hyperparathyroidism Follows with endocrinology at [facility] Continue levothyroxine Elevated TSH, normal free T4 Plan for surgery as per patient Needs follow-up with endocrinology upon discharge DVT Px Heparin SQ CODE STATUS Full code Disposition Home Admission and Anticipated Discharge Date Admission Date: February 26, 2022 Subjective Patient is seen and examined at bedside No new complaints Nausea, vomiting, diarrhea, flank pain resolved Denies any chest pain, dyspnea, dizziness Plan to discharge home today Review of Systems Review of Systems: All systems reviewed & are unremarkable except as noted in Subjective Physical Exam Physical Exam: Physical Exam: Vitals signs as noted above General Appearance:Obese, no apparent distress Head: normocephalic, Atraumatic Eyes: normal inspection, EOMI Neck: supple, Trachea midline Respiratory/Chest: Normal breath sounds, CTA, No accessory muscle use Cardiovascular: S1, S2, No murmur Abdomen/GI:Soft, Non tender, Bowel sounds present, B/L flank tender Extremities/Musculoskeletal:normal inspection, Trace edema Neurologic/Psych:AAOX3, grossly no focal neurological deficits Skin: normal color, warm Results & Data Results & Data ([facility]) Vital Signs (Past 12 Hours) Vital Signs Temp Pulse Pulse Resp BP BP Pulse Ox 02/28/22 05:55 51 L 02/28/22 08:22 36.9 C 67 16 120/65 94 02/28/22 03:30 36.8 C 58 L 18 127/75 97 02/27/22 23:40 36.9 C 69 18 129/73 95 O2 Del Method 02/28/22 05:55 02/28/22 08:22 Room Air 02/28/22 03:30 Room Air 02/27/22 23:40 Room Air Laboratory Results Short CBC 02/28/22 Range/Units 05:41 WBC 6.55 (4.8-10.8) K/ul Hgb 12.8 (12.0-16.0) g/dl Hct 39.0 (34.1-44.9) % Plt Count 176 (130-400) K/uL BMP 02/28/22 05:41 Sodium 141 Potassium 3.9 Chloride 113 H Carbon Dioxide 24 BUN 10 Creatinine 1.28 H Glucose 87 Calcium 9.0
--- NOTE | 2022-02-28 11:00 | Discharge Summary ---
Date of Service February 28, 2022 Admission HPI Per Admitting Provider Patient is a 51-year-old female with history of migraine, fibromyalgia, irritable bowel syndrome, lumbar disc disease, tobacco use disorder, chronic pain syndrome, hypothyroidism, opiate dependence disorder, generalized anxiety disorder, hyperparathyroidism, diabetes mellitus and other medical problems presents with history of bilateral flank pain and decreased urine output. Patient states having migraine headache since about 1 week duration for which she received a Toradol shot yesterday while at PCPs office. After the Toradol shot, patient started to notice generalized swelling and was having bilateral flank pain. She also noticed decreased urine output. Patient states having sharp bilateral flank pain radiating to left and right lower quadrant, no aggravating relieving factors noted. She believes that her pain is unusual from her baseline. Reports associated nausea, vomiting yesterday and had an episode today as well. Back pain worsens with movement. She states that she could not lie flat secondary to the pain. Reports chills but no fever. Also reports having some dizziness. Had 2 loose bowel movements this morning as well. Denies any other NSAID use over the counter. Denies any history of chest pain, dyspnea, palpitations, cough, change in vision, blood in stools, dysuria, hematuria, recent change in medications Admission Exam Per Admitting Provider Physical Exam Physical Exam: Physical Exam: Vitals signs as noted above General Appearance:Obese, no apparent distress Head: normocephalic, Atraumatic Eyes: normal inspection, EOMI Neck: supple, Trachea midline Respiratory/Chest: Normal breath sounds, CTA, No accessory muscle use Cardiovascular: S1, S2, No murmur Abdomen/GI:Soft, Non tender, Bowel sounds present, B/L flank tender Extremities/Musculoskeletal:normal inspection, Trace edema Neurologic/Psych:AAOX3, grossly no focal neurological deficits Skin: normal color, warm Principal Diagnosis Possible Acute pyelonephritis Acute kidney injury Discharge Data Allergies Allergy/AdvReac Type Severity Reaction Status Date / Time gabapentin Allergy Severe anaphylaxis Verified 02/26/22 16:03 Iodinated Contrast Media Allergy Severe heart Verified 02/26/22 16:03 races,rash,pain in head tramadol Allergy Severe ANAPHYLAXIS Verified 02/26/22 16:03 chlorpheniramine Allergy Intermediate SHORTNESS Verified 02/26/22 16:03 OF BREATH guaifenesin Allergy Intermediate SHORTNESS Verified 02/26/22 16:03 OF BREATH Sulfa (Sulfonamide Allergy Unknown Unknown Verified 02/26/22 16:03 Antibiotics) aspirin AdvReac Intermediate TINNITUS Verified 02/26/22 16:03 Corticosteroids AdvReac Intermediate Agitated Verified 02/26/22 16:03 (Glucocorticoids) metoclopramide AdvReac Intermediate anxiety Verified 02/26/22 16:03 SYMPATHOMIMETICS Allergy Unknown Unknown Uncoded 02/26/22 16:03 Consultations 02/26/22 17:23 ED Decision to Admit Stat 02/26/22 21:32 Consult Urology Routine Procedures Performed Laboratory Results WBC 6.55 K/ul (4.8-10.8) 02/28/22 05:41 RBC 4.22 M/uL (3.93-5.22) 02/28/22 05:41 Hgb 12.8 g/dl (12.0-16.0) 02/28/22 05:41 Hct 39.0 % (34.1-44.9) 02/28/22 05:41 MCV 92.4 fL (80.0-100.0) 02/28/22 05:41 MCH 30.3 pg (25.0-34.0) 02/28/22 05:41 MCHC 32.8 g/dL (32.0-36.0) 02/28/22 05:41 RDW Std Deviation 44.9 fL (36.4-46.3) 02/28/22 05:41 RDW Coeff of Roro 13.2 % (11.5-14.5) 02/28/22 05:41 Plt Count 176 K/uL (130-400) 02/28/22 05:41 MPV 11.1 fL (9.4-12.3) 02/28/22 05:41 Immature Gran % (Auto) 0.2 % 02/26/22 14:29 Neut % (Auto) 79.0 % 02/26/22 14:29 Lymph % (Auto) 14.7 % 02/26/22 14:29 Mineral % (Auto) 5.2 % 02/26/22 14:29 Eos % (Auto) 0.5 % 02/26/22 14:29 Baso % (Auto) 0.4 % 02/26/22 14:29 Neut # (Auto) 10.99 K/uL (1.4-6.5) H 02/26/22 14:29 Lymph # (Auto) 2.04 K/uL (1.2-3.4) 02/26/22 14:29 Mineral # (Auto) 0.73 K/uL (0.24-0.82) 02/26/22 14:29 Eos # (Auto) 0.07 K/uL (0-0.50) 02/26/22 14:29 Baso # (Auto) 0.06 K/uL (0-0.2) 02/26/22 14:29 Immature Gran # (Auto) 0.03 K/uL (0.00-0.02) H 02/26/22 14:29 Sodium 141 mmol/L (136-145) 02/28/22 05:41 Potassium 3.9 mmol/L (3.5-5.1) 02/28/22 05:41 Chloride 113 mmol/L (98-107) H 02/28/22 05:41 Carbon Dioxide 24 mmol/L (21-32) 02/28/22 05:41 Anion Gap 4 (3-11) 02/28/22 05:41 BUN 10 mg/dl (6-23) 02/28/22 05:41 Creatinine 1.28 mg/dl (0.6-1.2) H 02/28/22 05:41 Est Cr Clr Drug Dosing 70.5 ml/min 02/28/22 05:41 Est GFR ( Amer) 56.4 ml/min 02/28/22 05:41 Est GFR (Non-Af Amer) 48.7 ml/min 02/28/22 05:41 BUN/Creatinine Ratio 7.8 (10-20) L 02/28/22 05:41 Glucose 87 mg/dl (70-99(Fasting)) 02/28/22 05:41 Estimat Average Glucose 123 mg/dl 02/27/22 06:47 Hemoglobin A1c 5.9 % (4.5-5.6) H 02/27/22 06:47 Calcium 9.0 mg/dl (8.5-10.1) 02/28/22 05:41 Magnesium 2.1 mg/dl (1.7-2.4) 02/27/22 06:47 Total Bilirubin 0.6 mg/dl (0.2-1.0) 02/26/22 14:29 AST 14 U/L (13-39) 02/26/22 14:29 ALT 7 U/L (7-52) 02/26/22 14:29 Alkaline Phosphatase 115 U/L (34-104) H 02/26/22 14:29 Total Protein 7.4 gm/dl (6.0-8.3) 02/26/22 14: Albumin 4.2 gm/dl (3.4-5.0) 02/26/22 14: Globulin 3.2 gm/dl (2.5-4.0) 02/26/22 14:29 Albumin/Globulin Ratio 1.3 (0.9-2) 02/26/22 14: Lipase 18 U/L (11-82) 02/26/22 14: TSH 11.477 uIu/ml (0.300-4.500) H 02/27/22 06:47 Free T4 0.72 ng/dl (0.61-1.60) 02/27/22 06:47 Urine Color Yellow 02/26/22 14:29 Urine Appearance Cloudy (Clear) A 02/26/22 14:29 Urine pH 6.0 (4.5-7.5) 02/26/22 14:29 Ur Specific [place] 1.015 (1.000-1.030) 02/26/22 14:29 Urine Protein Negative (Negative) 02/26/22 14:29 Urine Glucose (UA) Negative (Negative) 02/26/22 14:29 Urine Ketones Negative (Negative) 02/26/22 14:29 Urine Blood 2+ (Negative) H 02/26/22 14:29 Urine Nitrite Negative (Negative) 02/26/22 14:29 Urine Bilirubin Negative (Negative) 02/26/22 14:29 Urine Urobilinogen Negative (Negative) 02/26/22 14:29 Ur Leukocyte Esterase Negative (Negative) 02/26/22 14:29 Urine WBC (Auto) 1-5 /hpf (0-5) 02/26/22 14:29 Urine RBC (Auto) 5-10 /hpf (0-4) H 02/26/22 14:29 U Hyaline Cast (Auto) 1-5 /lpf (0-5) 02/26/22 14:29 U Epithel Cells (Auto) >30 /lpf (0-5) H 02/26/22 14:29 Urine Bacteria (Auto) 1+ (Negative) H 02/26/22 14:29 SARS-CoV-2 (PCR) NEGATIVE (Negative) 02/26/22 15:50 Impressions Abdomen/Pelvis CT 02/26/22 14:[address] WITHOUT CONTRAST CT DOSE: 996.33 mGy.cm HISTORY: Acute bilateral flank pain flank pain TECHNIQUE: Multiaxial CT images of the abdomen and pelvis were performed without contrast. A dose lowering technique was utilized adhering to the principles of ALARA. COMPARISON STUDY: CT 03/06/2021 FINDINGS: Subsegmental bibasilar atelectasis. No pneumatosis or pneumoperitoneum. The unenhanced spleen, pancreas and liver appear unremarkable. Cholecystectomy. Bilateral adrenal gland adenomata redemonstrated measuring up to 2 cm b ilaterally. Mild nonspecific bilateral perinephric and periureteral stranding. No renal or ureteral calculi or hydronephrosis. Partial distention of the urinary bladder. Cholecystectomy. Pelvic basin phleboliths. No abdominal aortic aneurysm or lymphadenopathy. No bowel obstruction or bowel wall thickening. Prior appendectomy. No ascites or mesenteric inflammation. Unremarkable soft tissues. No acute fracture identified. IMPRESSION: 1. No bowel obstruction or bowel wall thickening. 2. Mild nonspecific bilateral perinephric stranding. Correlate with urinalysis to exclude an ascending infection. 3. Cholecystectomy. ACT 112: Negative or not required by law. The above report was generated using voice recognition software. It may contain grammatical, syntax or spelling errors. Electronically signed by: Shiv Lopez M.D. 02/26/2022 3:43 PM Renal Ultrasound 02/26/22 18:40 US renal/blad retro comp HISTORY: 51 years-old Female MARY acute kidney injury COMPARISON: CT abdomen and pelvis of same day TECHNIQUE: Multiple real-time sonographic images of the kidneys and urinary bladder were obtained assessing grayscale appearance and color flow FINDINGS: The right kidney measures 12.9 x 4.4 x 4.6 cm. The left kidney measures 12.0 x 5.3 x 4.4 cm. No renal calculi or hydronephrosis. Decompressed urinary bladder. IMPRESSION: Unremarkable exam. ACT 112: Negative or not required by law. The above report was generated using voice recognition software. It may contain grammatical, syntax or spelling errors. Electronically signed by: Shiv Lopez M.D. 02/26/2022 8:55 PM Ordered Studies 02/26/22 14:25 CT abd pelvis wo con Stat 02/26/22 18:40 US renal/blad retro comp Routine Hospital Course (1) UTI (urinary tract infection): Possible Acute pyelonephritis/UTI CT ABD:No bowel obstruction or bowel wall thickening. Mild nonspecific bilateral perinephric stranding. Correlate with urinalysis to exclude an ascending infection. Cholecystectomy. No obvious ureteral stone noted Urine culture noncontributory Blood culture : No growth to date Continue Rocephin >>Transition to Cefdinir Appreciate urology input Leukocytosis resolved MARY: Presented with decreased urine output Likely due to medications Received Toradol at PCPs office on 02/25 Renal ultrasound:Unremarkable exam. Bladder scan as needed Received IV fluids Avoid nephrotoxic agents as able Consider nephrology evaluation if needed Cr: 1.76>> 1.55>>1.28 Hypotension Bradycardia Usually hypotensive, bradycardic at baseline as per patient Monitor for any arrhythmias Blood pressure improved with IV fluids Not on any antihypertensives DM Type II: Diet controlled HbA1c 5.9 Continue Insulin while hospitalized Monitor BGs H/O Migraine Continue home medications Fibromyalgia Irritable bowel syndrome Lumbar disc disease chronic pain syndrome opiate dependence disorder On Cymbalta, chronic narcotics Follows with pain clinic as outpatient Tobacco use disorder Counseled to quit Nicotine patch Hypothyroidism Hyperparathyroidism Follows with endocrinology at [facility] Continue levothyroxine Elevated TSH, normal free T4 Plan for surgery as per patient Needs follow-up with endocrinology upon discharge DVT Px Heparin SQ CODE STATUS Full code Disposition Home Total Time Total Time Spent Total Time Spent (In Minutes): 48 minutes Discharge Plan Discharge Items Patient Disposition: Home - Self-Care Reason For Visit: FLANK PAIN Discharge Diagnosis: Possible Acute pyelonephritis Acute kidney injury Condition on Discharge: Fair Activity: Per Instructions section Exercise/Sports: Gradually increase as tolerated Non-emergency contact: Primary Care Provider Call non-emergency contact if: you have any medication questions, your symptoms worsen, your pain is concerning for you and you have a fever Follow-up/Referrals: Dajuan Bell, [Primary Care Provider] - Diet: Carb Consistent or DM2 Addtl Attending Provider Instructions: Follow-up with your primary care physician Dr. Bell in 1 week --- Complete antibiotic course cefdinir 300 mg twice a day for 5 more days as prescribed. --- Your final blood cultures are pending at the time of discharge. Follow-up with your physician for results. Do not take group of medications belonging to NSAIDs group -can cause worsening of your kidney function. List Of these medications includes but not limited to: Diclofenac Ibuprofen, Motrin, Advil Toradol,ketorolac Naproxen, Aleve, Naprosyn You can take Tylenol as needed for pain or fever When buying [id number] pain medications please consult with pharmacy if you are not sure regarding ingredients, as a lot of the pain medications have combination of NSAIDs and Tylenol. Seek immediate medical attention if your symptoms reoccur or worsen Please take all medications as instructed on discharge list below. Please call if you have any questions or problems. You can reach a [facility] hospitalist on duty at [facility] 24 hours a day by calling [phone] Pending Studies at Discharge: Yes Studies:: Blood Cultures Stand-Alone Forms: My [facility], Smoking Cessation Medications and DC Order Prescriptions: New cefdinir 300 mg capsule 300 mg PO BID 5 Days Qty: 10 0RF Continued morphine 15 mg tablet extended release 15 mg PO BID Rx Instructions: TAKE AM, NOON, HS morphine 15 mg tablet 15 mg PO BID PRN (Reason: Breakthrough Pain) duloxetine 30 mg capsule,delayed release(DR/EC) 30 mg PO DAILY@1500 Rx Instructions: TAKE WITH 60 MG TAB TO = 90MG duloxetine 60 mg capsule,delayed release(DR/EC) 60 mg PO DAILY@1500 Rx Instructions: TAKE WITH 30 MG TAB=90 MG. ondansetron 8 mg tablet,disintegrating 8 mg translingual Q8 PRN (Reason: NAUSEA/VOMITING) promethazine 25 mg tablet 25 mg PO Q6 PRN (Reason: Nausea) polyethylene glycol 3350 [Miralax] 17 gram Powder In Packet 17 g PO DAILY PRN (Reason: Constipation) nitroglycerin 0.4 mg tablet, sublingual 0.4 mg sublingual DIRECTED PRN (Reason: Chest Pain) nicotine [Nicoderm CQ] 21 mg/24 hr patch 24 hour 1 patch transdermal DAILY Qty: 28 0RF Label Comments: Pt states she only uses this medication when she is in the ED. She cannot get the medication filled at the pharmacy. (10-26-21) levothyroxine 125 mcg tablet See Rx Instructions .ROUTE .COMPLEX Rx Instructions: take 2 tablets orally daily 4 days a week (Mon, tu, wed, th) take 3 tablets orally daily 3 days a week ( fri, mon, mon) topiramate 100 mg tablet 150 mg PO HS Rx Instructions: 1 & 1/2 tablet dose clopidogrel 75 mg tablet 75 mg PO HS baclofen 5 mg Tablet 5 mg PO BID PRN (Reason: Muscle Spasm) aspirin 81 mg PO DAILY Discharge Orders: Discharge Order (Routine); Ordered 02/28/22 Ordered By: Tavo Marks Admission Data Admit Date/Time: 02/26/22 18:30 Attending Provider: Tavo Marks Admit Provider: Tavo Marks Primary Care Provider: Dajuan Bell Other Providers: Tavo Marks ; Vinh Reyes ; Kam Vidal ; Desean Macdonald ; Teressa Preston ; Luis Daniel Knowles ; Mariah Deleon ; Heaven Dickson ; Tony Lambert ; Fatuma Cortez ; Blanca Cotto ; Antonio Lopez ; Marvin Kapoor
== END 2022-02-28 11:20 | disposition home or self-care (01) | DRG 690 ==
LOC: ED 14:16 → 2N 18:30 → INTOOBSV 18:30 → 2N 21:42